=== PATIENT | female | born 1965 | race Hispanic/Latino ===

== ENCOUNTER 2018-05-25 18:42 | Emergency (ER) | payer OTHER ==
--- OUTSIDE RECORDS SUMMARY | 2018-05-25 18:45 | XMS REPORT | Summary of Care ---
:[address] [facility] Address [address] [place] [address]- Encounter HQ Encntr_alias(FIN) [id number] Date(s): 04/05/17 - 04/05/17 [facility] [address] [place] [address]- [phone] Attending Physician: Gail Morse MD Vital Signs No data available for this section Problem List Condition Effective Dates Status Health Status Informant Anxiolytic Dependence(Confirmed) Active Benzodiazepine dependence(Confirmed) < 12/13/16 Resolved Encounter for monitoring Suboxone Active maintenance therapy(Confirmed) Schizophrenia(Confirmed) Active Drug abuse counseling and Active surveillance of drug abuser(Confirmed) Allergies, Adverse Reactions, Alerts No data available for this section Medications No data available for this section Results No data available for this section Immunizations No data available for this section Procedures Procedure Date Related Diagnosis Body Site Status Operation 2003 Completed Cholecystectomy 2000 Completed Social History Social History Type Response Substance Abuse Use: Past. Type: Prescription medications. Alcohol Past Smoking Status Current every day smoker; Type: Cigarettes; Exposure to Tobacco Smoke Patient smokes; Cigarette Smoking Last 365 Days Yes; Reg Smoking Cessation Counseling No; Tobacco use per day: 10; entered on: 12/07/16 Assessment and Plan No data available for this section
--- OUTSIDE RECORDS SUMMARY | 2018-05-25 18:45 | XMS REPORT | Summary of Care ---
:1965 Author Organization [facility] Address [address] [place] [address]- Encounter HQ Encntr_alias(FIN) [id number] Date(s): 03/26/17 - 03/26/17 [facility] [address] [place] [address]- [phone] Attending Physician: Gail Morse MD Vital Signs [...]
--- OUTSIDE RECORDS SUMMARY | 2018-05-25 18:45 | XMS REPORT ---
:1965 [facility] Address [address] [place] [address] [address]. [address]. [address] [place] [address] Care Team Providers Name Role Phone Unavailable Unavailable Unavailable Problems This patient has no known problems. Allergies, Adverse Reactions, Alerts This patient has no known allergies or adverse reactions. Medications This patient has no known medications.
--- NOTE | 2018-05-25 20:30 | RAD REPORT ---
EXAM DESCRIPTION: RAD - Chest Pa And Lat (2 Views) - 05/25/2018 8:00 pm CLINICAL HISTORY: COUGH Chest pain. COMPARISON: CHEST SINGLE VIEW dated 01/29/2015 FINDINGS: The lungs are clear. The heart is normal in size. No displaced fractures. IMPRESSION: No acute or concerning finding suspected.
--- NOTE | 2018-05-25 20:37 | ER ---
Nurse's Notes [facility] Name: Tabatha Chambers Age: 52 yrs Sex: Female : 1965 Arrival Date: 05/25/2018 Time: 18:48 Bed 27 Private MD: Diagnosis: Acute upper respiratory infection, unspecified Presentation: 05/25 18:49 Presenting complaint: Patient states: dyspnea, sore throat, chills, cough x 2 days. sv Transition of care: patient was not received from another setting of care. Onset of symptoms was May 23, 2018. Care prior to arrival: None. 18:49 Method Of Arrival: Ambulatory sv 18:49 Acuity: VERO 3 sv 19:40 Risk Assessment: Do you want to hurt yourself or someone else? Patient reports no mg2 desire to harm self or others. Initial Sepsis Screen: Does the patient meet any 2 criteria? No. Patient's initial sepsis screen is negative. Does the patient have a suspected source of infection? No. Patient's initial sepsis screen is negative. Triage Assessment: 18:49 General: Appears in no apparent distress. uncomfortable, obese, unkempt, Behavior is sv calm, cooperative. EENT: Reports pain in left aspect of posterior pharynx and right aspect of posterior pharynx when swallowing. Neuro: Level of Consciousness is awake, alert, obeys commands, Oriented to person, place, time, situation, Moves all extremities. Full function Gait is steady. Respiratory: Reports cough that is non-productive, Respiratory effort is even, unlabored, Respiratory pattern is regular, symmetrical, Onset: The symptoms/episode began/occurred 2 days ago. 19:41 Respiratory: the patient has mild shortness of breath. 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 - Social history:: Smoking status: Patient/guardian denies using tobacco, Patient/guardian denies using alcohol, street drugs, IV drugs. - Family history:: not pertinent. - Ebola Screening: : No symptoms or risks identified at this time. - Hospitalizations: : No recent hospitalization is reported. Screenin:39 Abuse screen: Denies threats or abuse. Denies injuries from another. Nutritional mg2 screening: No deficits noted. Tuberculosis screening: No symptoms or risk factors identified. Fall Risk None identified. Assessment: 19:38 General: Appears in no apparent distress. comfortable, Behavior is calm, cooperative. mg2 Pain: Complains of pain in back and throat Pain does not radiate. Pain currently is 2 out of 10 on a pain scale. Quality of pain is described as aching, Pain began gradually. Neuro: Level of Consciousness is awake, alert, obeys commands, Oriented to person, place, time, situation. Cardiovascular: Rhythm is. Respiratory: Airway is patent Respiratory effort is even, unlabored, Respiratory pattern is regular, symmetrical, Breath sounds are clear bilaterally. in right upper lobe and left upper lobe. Respiratory: Reports shortness of breath at rest cough that is non-productive. GI: No signs and/or symptoms were reported involving the gastrointestinal system. : No signs and/or symptoms were reported regarding the genitourinary system. EENT: No signs and/or symptoms were reported regarding the EENT system. Derm: Skin is intact, is healthy with good turgor, Skin is pink, warm \T\ dry. normal. Musculoskeletal: Circulation, motion, and sensation intact. Capillary refill < 3 seconds. Vital Signs: 18:50 BP 152 / 105; Pulse 92; Resp 20; Temp 98.9; Pulse Ox 98% ; Weight 125.65 kg; Height 5 sv ft. 5 in. (165.10 cm); 21:13 BP 140 / 80; Pulse 85; Resp 18; Pulse Ox 98% on R/A; Pain 0/10; mg2 18:50 Body Mass Index 46.09 (125.65 kg, 165.10 cm) sv ED Course: 18:48 Patient arrived in ED. mr 18:50 Triage completed. sv 18:51 Arm band placed on. sv 19:00 Darian Pate MD is Attending Physician. rn 19:11 Cb Guerrero RN is Primary Nurse. mg2 19:40 No provider procedures requiring assistance completed. Patient did not have IV access mg2 during this emergency room visit. 19:41 Patient has correct armband on for positive identification. Door closed. mg2 19:59 X-ray completed. Portable x-ray completed in exam room. Patient tolerated procedure az well. 20:00 XRAY Chest Pa And Lat (2 Views) In Process Unspecified. EDMS Administered Medications: 21:13 Drug: Zithromax 500 mg Route: PO; mg2 21:13 Follow up: Response: No adverse reaction; Medication administered at discharge. mg2 Outcome: 20:37 Discharge ordered by . rn 21:13 Discharged to home ambulatory. mg2 21:13 Condition: stable 21:13 Discharge instructions given to patient, Instructed on discharge instructions, follow up and referral plans. medication usage, Demonstrated understanding of instructions, follow-up care, medications, Prescriptions given X 1. 21:14 Patient left the ED. mg2 Signatures: Dispatcher [employer] EDMS Codie Baeza RN RN sv Rivera, Mary mr Nieto, Roman, MD MD rn Gardose, Michele, RN RN mg2 Janie Tomas
--- NOTE | 2018-05-25 20:37 | EDPHYS ---
Physician Documentation [facility] Name: Tabatha Chambers Age: 52 yrs Sex: Female : 1965 Arrival Date: 05/25/2018 Time: 18:48 Bed 27 Private MD: ED Physician Darian Pate HPI: 05/25 19:09 This 52 yrs old Female presents to ER via Ambulatory with complaints of rn Breathing Difficulty, Sore Throat, Fever. 19:09 The patient or guardian reports cough, flu symptoms. Onset: The symptoms/episode rn began/occurred 1 week(s) ago. Severity of symptoms: At their worst the symptoms were mild, in the emergency department the symptoms are unchanged. Modifying factors: The symptoms are alleviated by nothing, the symptoms are aggravated by nothing. Associated signs and symptoms: Pertinent positives: fever, rhinorrhea, sore throat. The patient has experienced similar episodes in the past. Reports fever, cough, runny nose, sore throat, muscle aches, fatigue, no vomiting/diarrhea. . 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 - Social history:: Smoking status: Patient/guardian denies using tobacco, Patient/guardian denies using alcohol, street drugs, IV drugs. - Family history:: not pertinent. - Ebola Screening: : No symptoms or risks identified at this time. - Hospitalizations: : No recent hospitalization is reported. ROS: 19:09 Constitutional: + fever Eyes: Negative for injury, pain, redness, and discharge, ENT: + rn runny nose and congestion, + sore throat Cardiovascular: Negative for chest pain, palpitations, and edema, Respiratory: + cough, neg for sob Abdomen/GI: Negative for abdominal pain, nausea, vomiting, diarrhea, and constipation, MS/Extremity: Negative for injury and deformity, Skin: Negative for injury, rash, and discoloration, Neuro: Negative for headache, numbness, tingling, and seizure. Exam: 19:09 Constitutional: This is a well developed, well nourished patient who is awake, alert, rn and in no acute distress. Head/Face: Normocephalic, atraumatic. Eyes: Pupils equal round and reactive to light, extra-ocular motions intact. Lids and lashes normal. Conjunctiva and sclera are non-icteric and not injected. Cornea within normal limits. Periorbital areas with no swelling, redness, or edema. ENT: mild pharyngeal erythema, no stridor Neck: Trachea midline, no thyromegaly or masses palpated, and no cervical lymphadenopathy. Supple, full range of motion without nuchal rigidity, or vertebral point tenderness. No Meningismus. Cardiovascular: Regular rate and rhythmm, No pulse deficits. Respiratory: Lungs have equal breath sounds bilaterally, clear to auscultation. No increased work of breathing, no retractions or nasal flaring. Abdomen/GI: soft, non-tender Skin: Warm, dry, Normal color with no rashes, no lesions, and no evidence of cellulitis. MS/ Extremity: Pulses equal, no cyanosis. Neurovascular intact. Full, normal range of motion. Equal circumference. Neuro: Awake and alert, GCS 15, oriented to person, place, time, and situation. Cranial nerves II-XII grossly intact. Motor strength 5/5 in all extremities. Sensory grossly intact. Vital Signs: 18:50 BP 152 / 105; Pulse 92; Resp 20; Temp 98.9; Pulse Ox 98% ; Weight 125.65 kg; Height 5 sv ft. 5 in. (165.10 cm); 21:13 BP 140 / 80; Pulse 85; Resp 18; Pulse Ox 98% on R/A; Pain 0/10; mg2 18:50 Body Mass Index 46.09 (125.65 kg, 165.10 cm) sv MDM: 19:00 Patient medically screened. rn 20:36 Differential Diagnosis: Bronchitis Influenza Upper Respiratory Infection Sinusitis rn Pharyngitis Viral Syndrome Pneumonia. Data reviewed: vital signs, nurses notes, lab test result(s), radiologic studies, plain films, and as a result, I will discharge patient. Counseling: I had a detailed discussion with the patient and/or guardian regarding: the historical points, exam findings, and any diagnostic results supporting the discharge/admit diagnosis, lab results, radiology results, the need for outpatient follow up, to return to the emergency department if symptoms worsen or persist or if there are any questions or concerns that arise at home. Special discussion: I discussed with the patient/guardian in detail that at this point there is no indication for admission to the hospital. It is understood, however, that if the symptoms persist or worsen the patient needs to return immediately for re-evaluation. 05/25 18:48 Order name: Flu; Complete Time: 20:35 snw 05/25 18:48 Order name: Strep; Complete Time: 20:35 snw 05/25 19:04 Order name: XRAY Chest Pa And Lat (2 Views); Complete Time: 20:35 rn 05/25 20:07 Order name: Throat Culture EDMS Administered Medications: 21:13 Drug: Zithromax 500 mg Route: PO; mg2 21:13 Follow up: Response: No adverse reaction; Medication administered at discharge. mg2 Disposition: 05/25/18 20:37 Discharged to Home. Impression: Acute upper respiratory infection, unspecified. - Condition is Stable. - Discharge Instructions: Upper Respiratory Infection, Adult. - Prescriptions for Zithromax Z- Ihsan 250 mg Oral Tablet - take 1 tablet by ORAL route as directed for 5 days Day 1 - take two (2) tablets one time. Day 2, 3, 4 , 5 take one (1) tablet once daily.; 6 tablet. - Medication Reconciliation Form, Thank You Letter, Antibiotic Education, Prescription Opioid Use form. - Follow up: Private Physician; When: As needed; Reason: Recheck today's complaints, Re-evaluation by your physician. - Problem is new. - Symptoms have improved. Signatures: Dispatcher [employer] EDCodie Guerrero RN RN sv Nieto, Roman, MD MD rn Gardose, Michele, RN RN mg2 Corrections: (The following items were deleted from the chart) 21:14 20:37 05/25/2018 20:37 Discharged to Home. Impression: Acute upper respiratory mg2 infection, unspecified. Condition is Stable. Forms are Medication Reconciliation Form, Thank You Letter, Antibiotic Education, Prescription Opioid Use. Follow up: Private Physician; When: As needed; Reason: Recheck today's complaints, Re-evaluation by your physician. Problem is new. Symptoms have improved. rn
[2018-05-25] MEDS ORDERED: AZITHROMYCIN 250 MG TAB ONE (21:14)
[2018-05-25 22:15] VITALS: TEMP 98.9; O2SAT 98
[2018-05-25 22:16] VITALS: BP 140/80
== END 2018-05-25 21:14 | disposition home or self-care (01) ==
LOC: ER 18:42
DX: J06.9 Acute upper respiratory infection, unspecified (principal)
CPT/HCPCS: 71046; 87070; 87081; 87804; 99283

== ENCOUNTER 2018-08-05 21:36 | Observation (INO) | payer OTHER ==
--- OUTSIDE RECORDS SUMMARY | 2018-08-05 21:38 | XMS REPORT | Continuity of Care Document ---
:1965 Author Organization Interface Problems Problem Status Onset Classification Date Comments Source Date Reported Benzodiazepine Resolved 12/14/19 Problem 07/12/2017 Medical dependence [facility] Group Anxiolytic Active Problem 07/12/2017 Medical Dependence Group Encounter for Active Problem 07/12/2017 Medical monitoring Group Suboxone maintenance therapy Schizophrenia Active Problem 07/12/2017 Medical Group Drug abuse Active Problem 07/12/2017 Medical counseling and Group surveillance of drug abuser Medications Medication Details Route Status Patient Ordering Order Source Instructions Provider Date Allergies, Adverse Reactions, Alerts Substance Category Reaction Severity Reaction Status Date Comments Source type Reported Immunizations Immunization Date Given Site Status Last Updated Comments Source Results Order Results Value Reference Date Interpretation Comments Source Name Range Vital Signs Vital Sign Value Date Comments Source Encounters Location Location Encounter Encounter Reason Attending ADM DC Status Source Details Type Number For Provider Date Date Visit Outpatient [id number] [facility] 12/07 Active [facility] [id number] [place] 03/26 [facility] [id number] [place] 03/26 03/26 [facility] [id number] [place] 04/05 [facility] [id number] [place] 04/05 04/05 Family [facility] Procedures Procedure Code Date Perfomer Comments Source Operation [id number] 03/08/2003 Medical Group Cholecystectomy [id number] 03/08/2000 Medical Group
--- OUTSIDE RECORDS SUMMARY | 2018-08-05 21:38 | XMS REPORT ---
:1965 [facility] Address [address] [place] [address] Dr. Kim. [address] [place] [address] Care Team Providers Name Role Phone Unavailable Unavailable Unavailable Problems This patient has no known problems. Allergies, Adverse Reactions, Alerts This patient has no known allergies or adverse reactions. Medications This patient has no known medications.
[2018-08-05 22:09] LABS: Absolute Lymphocytes (CBC) 1.8 K/uL (0.7-4.9); Absolute Monocytes 0.3 K/uL (0.1-1.3); Basophils % 1.3 % (0-1.3); Eosinophils % 1.7 % (0-4.4); Hematocrit 34.9 % (36.0-45.0); Lymphocytes % 24.4 % (15.3-44.8); MPV 8.1 fL (7.6-11.3); Monocytes % 4.1 % (3.3-12.3); RBC Red Blood Cell Count 4.14 M/uL (3.86-4.86)
[2018-08-05 22:13] LABS: Protime INR 1.14
--- NOTE | 2018-08-05 22:25 | RAD REPORT ---
EXAM DESCRIPTION: [place] Single View08/05/2018 10:06 pm CLINICAL HISTORY: Code stroke/shortness of breath COMPARISON: May 2018 FINDINGS: The lungs appear clear of acute infiltrate. The heart is normal size IMPRESSION: No acute abnormalities displayed
[2018-08-05 22:26] LABS: ALT/SGPT 14 U/L (12-78); AST/SGOT 15 U/L (15-37); Albumin 2.9 g/dL (3.4-5.0); Alkaline Phosphatase 110 U/L (45-117); BUN Blood Urea Nitrogen 13 mg/dL (7-18); Bicarbonate 27 mmol/L (21-32); Bilirubin Total 0.3 mg/dL (0.2-1.0); Glucose Level 115 mg/dL (74-106); Potassium 3.7 mmol/L (3.5-5.1); Protein, Total 6.9 g/dL (6.4-8.2); Sodium Level 138 mmol/L (136-145); Troponin (Emerg Dept Use Only) < 0.02 ng/mL (0.0-0.045)
[2018-08-05 22:27] LABS: Magnesium 1.4 mg/dL (1.8-2.4)
[2018-08-05 22:59] LABS: Blood Morphology Comment NOT SEEN (NOT SEEN); Platelet Estimate ADEQ
[2018-08-05] MEDS ORDERED: Magnesium Sulfate 2gm IVPB 2 G/50 ML BAG IV ONE (23:14)
[2018-08-06 00:52] LABS: Urine Blood NEGATIVE (NEG); Urine Glucose NEGATIVE (NEG); Urine Protein NEGATIVE (NEG); Urine pH 6.5 (5.0-7.0)
[2018-08-06] MEDS ORDERED: ONDANSETRON 4 MG/2 ML VIAL IV PRN (01:37)
--- NOTE | 2018-08-06 01:49 | P.HP ---
Certification for Inpatient Patient admitted to: Observation With expected LOS: <2 Midnights Practitioner: I am a practitioner with admitting privileges, knowledge of patient current condition, hospital course, and medical plan of care. Services: Services provided to patient in accordance with Admission requirements found in Title 42 Section 412.3 of the Code of Federal Regulations Patient History Date of Service: 08/06/18 Reason for admission: TIA History of Present Illness: Ms Chambers is a 52 years old woman with history of schizophrenia who present to ED complaining of right facial drop and right leg weakness starting a couple of hours before arrive. She denied slurred speech or vision problems. At the time of my examination her symptoms were resolved, however, she states that symptoms are come and go. Lab work remarkable for hypomagnesemia. CT head shows no acute abnormalities, CTA head and neck unremarkable. According to the patient she has never had this symptoms in the past. Allergies No Known Drug Allergies Allergy (Unverified 10/06/14 13:07) Unknown Home medications list reviewed: Yes - Past Medical/Surgical History -: schyzophrenia -: bipolar -: tubal ligation -: left ankle -: ectopic - Family History Family History: Reviewed- Non-Contributory - Social History Smoking Status: Former smoker Alcohol use: No CD- Drugs: No Place of Residence: Home Review of Systems 10-point ROS is otherwise unremarkable Physical Examination - Physical Exam General: Alert, In no apparent distress HEENT: Atraumatic, PERRLA, Mucous membr. moist/pink, EOMI, Sclerae nonicteric Neck: Supple, 2+ carotid pulse no bruit, No LAD, Without JVD or thyroid abnormality Respiratory: Clear to auscultation bilaterally, Normal air movement Cardiovascular: Regular rate/rhythm, Normal S1 S2 Gastrointestinal: Normal bowel sounds, No tenderness Musculoskeletal: No tenderness Integumentary: No rashes Neurological: Normal gait, Normal speech, Normal strength at 5/5 x4 extr, Normal tone, Normal affect Lymphatics: No axilla or inguinal lymphadenopathy - Studies Laboratory Data (last 24 hrs) 08/05/18 21:59: PT 13.4 H, INR 1.14, APTT 37.6 H 08/05/18 21:59: WBC 7.3, Hgb 11.6 L, Hct 34.9 L, Plt Count 252 08/05/18 21:59: Sodium 138, Potassium 3.7, BUN 13, Creatinine 0.93, Glucose 115 H, Magnesium 1.4 L*, Total Bilirubin 0.3, AST 15, ALT 14, Alkaline Phosphatase 110 Assessment and Plan - Problems (Diagnosis) (1) TIA (transient ischemic attack) Current Visit: Yes Status: Acute (2) Schizophrenia Current Visit: Yes Status: Acute Qualifiers: Schizophrenia type: unspecified Qualified Code(s): F20.9 - Schizophrenia, unspecified (3) Obesity Current Visit: Yes Status: Acute Qualifiers: Obesity type: unspecified obesity type Obesity classification: unspecified obesity classification Serious obesity comorbidity presence: unspecified whether serious comorbidity present Qualified Code(s): E66.9 - Obesity, unspecified (4) Hypomagnesemia Current Visit: Yes Status: Acute - Plan The patient will be admitted to the hospital for possible TIA. Consider conversion disorder as differential diagnosis. Will order brain MRI in AM to R/ O acute stroke. If negative, she can be discharged home and follow up with her PCP. - Advance Directives Does patient have a Living Will: No Does patient have a Durable POA for Healthcare: No - Code Status/Comfort Care Code Status Assessed: Yes Code Status: Full Code
--- NOTE | 2018-08-06 01:57 | EDPHYS ---
Physician Documentation [facility] Name: Tabatha Chambers Age: 52 yrs Sex: Female : 1965 Arrival Date: 08/05/2018 Time: 21:36 Bed 4 Private MD: ED Physician Chandler Artis HPI: 08/05 23:23 This 52 yrs old Female presents to ER via EMS with complaints of S/S of ps1 Possible Stroke. 23:23 patient has a history of schizophrenia and was off of her medications for several ps1 months she states she started taking her schizophrenia medications two days ago and then started feeling different. 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 Pt was brought in by EMS and straight to CT scan for evaluation of acute stroke. CTA ordered. Patient states her symptoms resolved when she got to ED room. . 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 - bb Historical: - Allergies: 22:15 No Known Allergies; bb - Home Meds: 22:15 Propranolol Oral [Active]; Hydrochlorothiazide Oral [Active]; Alprazolam Oral [Active]; bb ropinirole oral oral [Active]; Invega oral oral [Active]; Bupropion Oral [Active]; tizanidine oral oral [Active]; Cymbalta oral oral [Active]; Folic Acid Oral [Active]; Zolpidem Tartrate Oral [Active]; Melatonin Oral [Active]; suboxone [Active]; - PMHx: 22:15 Depression; Schizophrenia; Bipolar disorder; Hypertension; Anxiety; bb - PSHx: 22:15 ankle left; Tubal ligation; ectopic ; bb - Immunization history:: Adult Immunizations unknown. - Social history:: Smoking status: Patient/guardian denies using tobacco. - Ebola Screening: : No symptoms or risks identified at this time. ROS: 23:23 Constitutional: Negative for fever, chills, and weight loss, Eyes: Negative for injury, ps1 pain, redness, and discharge, ENT: Negative for injury, pain, and discharge, Cardiovascular: Negative for chest pain, palpitations, and edema, Respiratory: Negative for shortness of breath, cough, wheezing, and pleuritic chest pain, Abdomen/GI: Negative for abdominal pain, nausea, vomiting, diarrhea, and constipation, MS/Extremity: Negative for injury and deformity, Skin: Negative for injury, rash, and discoloration. 23:23 Neuro: Positive for speech changes, weakness, of the right cheek, right leg. Exam: 23:23 Radiologist reports: negative CTA, CT ps1 23:23 Constitutional: This is a well developed, well nourished patient who is awake, alert, and in no acute distress. Head/Face: Normocephalic, atraumatic. Eyes: Pupils equal round and reactive to light, extra-ocular motions intact. Lids and lashes normal. Conjunctiva and sclera are non-icteric and not injected. Chest/axilla: Normal chest wall appearance and motion. Nontender with no deformity. No lesions are appreciated. Cardiovascular: Regular rate and rhythm. No gallops, murmurs, or rubs. Normal PMI, no JVD. No pulse deficits. Respiratory: Lungs have equal breath sounds bilaterally, clear to auscultation and percussion. No rales, rhonchi or wheezes noted. No increased work of breathing, no retractions or nasal flaring. Abdomen/GI: Soft, non-tender, with normal bowel sounds. No distension or tympany. No guarding or rebound. No evidence of tenderness throughout. Skin: Warm, dry with normal turgor. Normal color with no rashes, no lesions, and no evidence of cellulitis. MS/ Extremity: Pulses equal, no cyanosis. Neurovascular intact. Full, normal range of motion. Neuro: Awake and alert, GCS 15, oriented to person, place, time, and situation. Cranial nerves II-XII grossly intact. Sensory grossly intact. Psych: Awake, alert, with orientation to person, place and time. Behavior, mood, and affect are within normal limits. Vital Signs: 22:15 BP 144 / 104; Pulse 72; Resp 16 S; Temp 97.8(O); Pulse Ox 98% on R/A; Weight 116.57 kg bb (R); Height 5 ft. 5 in. (165.10 cm) (R); Pain 5/10; 22:38 BP 91 / 50; Pulse 81; Resp 16 S; Temp 97.8(O); Pulse Ox 99% on R/A; cc3 23:30 BP 107 / 82; Pulse 72; Resp 18 S; Temp 97.8(O); Pulse Ox 100% ; cc3 08/06 00:30 BP 103 / 53; Pulse 75; Resp 20 S; Temp 97.9(O); Pulse Ox 100% on R/A; cc3 01:30 BP 133 / 82; Pulse 84; Resp 18 S; Temp 97.8(O); Pulse Ox 100% on R/A; cc3 02:09 BP 113 / 47; Pulse 74; Resp 20 S; Temp 97.5(O); Pulse Ox 100% on R/A; cc3 03:15 BP 116 / 78; Pulse 75; Resp 20 S; Temp 97.5(O); Pulse Ox 100% on R/A; cc3 08/05 22:15 Body Mass Index 42.77 (116.57 kg, 165.10 cm) bb NIH Stroke Scale Scores: 08/05 22:10 NIHSS Score: 0 cc3 MDM: 21:58 Patient medically screened. ps1 23:23 Data reviewed: vital signs, nurses notes, lab test result(s), radiologic studies, and ps1 as a result, I will. ED course: patient was able to ambulate without assistance. . 08/05 21:38 Order name: Troponin (emerg Dept Use Only); Complete Time: 00:13 ps1 08/05 21:38 Order name: Magnesium; Complete Time: 00:13 ps1 08/05 21:38 Order name: CBC with Diff; Complete Time: 00:13 ps1 08/05 21:38 Order name: Protime (+inr); Complete Time: 00:13 ps1 08/05 21:38 Order name: Ptt, Activated; Complete Time: 00:13 ps1 08/05 21:38 Order name: CMP; Complete Time: 00:13 ps1 08/05 21:38 Order name: CT Stroke Brain w/o Contrast ps1 08/05 21:38 Order name: Stroke CXR 1 View; Complete Time: 00:13 ps1 08/05 21:41 Order name: CT Neck Angio ps1 08/05 22:17 Order name: Manual Differential; Complete Time: 00:13 EDMS 08/06 00:45 Order name: Urine Dipstick--Ancillary (enter results); Complete Time: 00:53 ar5 08/06 01:44 Order name: Liver (Hepatic) Function EDMS 08/06 01:44 Order name: Liver (Hepatic) Function EDDE 08/06 01:44 Order name: Liver (Hepatic) Function EDDE 08/05 21:38 Order name: EKG; Complete Time: 21:41 [facility] 08/05 21:38 Order name: Accucheck; Complete Time: 22:14 [facility] 08/05 21:38 Order name: Cardiac monitoring; Complete Time: 22:14 [facility] 08/05 21:38 Order name: EKG - Nurse/Tech; Complete Time: 22:14 [facility] 08/05 21:38 Order name: IV Saline Lock; Complete Time: 22:34 [facility] 08/05 21:38 Order name: Labs collected and sent; Complete Time: 22:34 [facility] 08/05 21:38 Order name: NPO; Complete Time: 22:14 [facility] 08/05 21:38 Order name: O2 Per Protocol; Complete Time: 22:14 [facility] 08/05 21:38 Order name: O2 Sat Monitoring; Complete Time: 22:14 [facility] 08/05 21:38 Order name: Stroke Swallow Screen; Complete Time: 22:14 [facility] 08/05 21:47 Order name: Head angio EDDE 08/06 01:44 Order name: Physical Therapy Consult EDDE 08/06 01:44 Order name: Echo with Doppler EDDE 08/06 01:44 Order name: EKG Electrocardiogram EDDE 08/06 01:44 Order name: Stroke Protocol [facility] Administered Medications: 23:05 Drug: Magnesium Sulfate 2 grams Route: IVPB; Infused Over: 2 hrs; Site: left cc3 antecubital; 08/06 01:10 Follow up: Response: No adverse reaction; IV Status: Completed infusion; IV Intake: [id number] Point of Care Testing: Blood Glucose: 08/05 22:08 Blood Glucose: 130 mg/dL; ak1 Ranges: Critical Glucose Levels:Adult <50 mg/dl or >400 mg/dl <40 mg/dl or >180 mg/dl Disposition: 08/06/18 01:55 Hospitalization ordered by Ciara Lane for Observation. Preliminary diagnosis is TIA. - Bed requested for Telemetry/MedSurg (observation). - Status is Observation. cc3 - Condition is Stable. - Problem is new. - Symptoms have improved. UTI on Admission? No NIH Stroke Scale - NIH Stroke Score Date: 08/05/2018 Time: 22:10 Total Score = 0 1a. Level of Consciousness (LOC) - 0(Alert) 1b. Level of Consciousness (LOC) (Year \T\ Age) - 0(Both) 1c. LOC Commands (Open \T\ Closes Eyes/Beck Operator) - 0(Both) 2. Best Gaze (Lateral Gaze Paresis) - 0(Normal) 3. Visual Field Loss - 0(No visual loss) 4. Facial Palsy - 0(Normal) 5a. Left Arm: Motor (10-second hold) - 0(No drift) 5b. Right Arm: Motor (10-second hold) - 0(No drift) 6a. Left Leg: Motor (5-second hold - always test supine) - 0(No drift) 6b. Right Leg: Motor (5-second hold - always test supine) - 0(No drift) 7. Limb Ataxia (finger/nose \T\ heel/kent - test with eyes open) - 0(Absent) 8. Sensory Loss (pinprick arms/legs/face) - 0(Normal) 9. Best Language: Aphasia (description/naming/reading) - 0(No aphasia) 10. Dysarthria (speech clarity - read or repeat words) - 0(Normal) 11. Extinction and Inattention (visual/tactile/auditory/spatial/personal) - 0(No abnormality) Initials: cc3 Signatures: Dispatcher [employer] EDMS Clarisse March RN RN bb Haley Taveras RN RN cg Chandler Artis MD MD ps1 Emily Bales cc3 Corrections: (The following items were deleted from the chart) 08/06 02:19 01:55 Hospitalization Ordered by Ciara Lane MD for Observation. Preliminary cg diagnosis is TIA. Bed requested for Telemetry/MedSurg (observation). Status is Observation. Condition is Stable. Problem is new. Symptoms have improved. UTI on Admission? No. ps1 03:30 02:19 08/06/2018 01:55 Hospitalization Ordered by Ciara Lane MD for cc3 Observation. Preliminary diagnosis is TIA. Bed requested for Telemetry/MedSurg (observation). Status is Observation. Condition is Stable. Problem is new. Symptoms have improved. UTI on Admission? No. cg
--- NOTE | 2018-08-06 01:57 | ER ---
Nurse's Notes [facility] Name: Tabatha Chambers Age: 52 yrs Sex: Female : 1965 Arrival Date: 08/05/2018 Time: 21:36 Bed 4 Private MD: Diagnosis: TIA Presentation: 08/05 21:33 Presenting complaint: EMS states: they were toned out for report of pt having stroke bb like symptoms with slurred speech and right arm weakness, last known well time was 2029, 08/05/18. Transition of care: patient was not received from another setting of care. An acute neurological deficit is present. The patients blood glucose was checked before arriving to the hospital and was found to be normal. Onset of symptoms was August 05, 2018 at 20:30. Risk Assessment: Do you want to hurt yourself or someone else? Patient reports no desire to harm self or others. Initial Sepsis Screen: Does the patient meet any 2 criteria? No. Patient's initial sepsis screen is negative. Does the patient have a suspected source of infection? No. Patient's initial sepsis screen is negative. Care prior to arrival: IV initiated. 20 GA, in the left antecubital area. 21:33 Method Of Arrival: EMS: [facility] bb 21:33 Acuity: VERO 1 bb Triage Assessment: 22:05 General: Appears in no apparent distress. uncomfortable, obese, Behavior is calm, cc3 cooperative, appropriate for age. Pain: Complains of pain in right leg Quality of pain is described as tingling. EENT: Sclera/Cornea are clear in bilaterally Nares are clear bilaterally Oral mucosa is dry. Throat with gag reflex present. Neuro: Level of Consciousness is awake, alert, obeys commands, Oriented to person, place, time, situation, Appropriate for age Lead Janitor are equal bilaterally Moves all extremities. Gait is steady, Speech is normal, Facial symmetry appears normal, Pupils are PERRLA, Intact Reports pain on the right leg like pinprick sensation to her right plantar area.. Cardiovascular: Denies chest pain, Patient's skin is warm and dry. Respiratory: Airway is patent Respiratory effort is even, unlabored, Respiratory pattern is regular, symmetrical. GI: Abdomen is round obese. : No signs and/or symptoms were reported regarding the genitourinary system. Derm: noticed healed wound scars/scratches on both her upper extremities. Musculoskeletal: Range of motion: intact in all extremities. 22:15 The onset of the patients symptoms was August 05, 2018 at 20:30. 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/A - bb Stroke Activation: Symptom onset < 3 hours Physician: Stroke Attending; Name: ; Notified At: ; Arrived At: Physician: Chief Stroke Resident; Name: ; Notified At: ; Arrived At: Physician: Stroke Resident; Name: ; Notified At: ; Arrived At: Physician: ED Attending; Name: Artis; Notified At: 21:33; Arrived At: 21:33 Physician: ED Resident; Name: ; Notified At: ; Arrived At: Historical: - Allergies: 22:15 No Known Allergies; bb - Home Meds: 22:15 Propranolol Oral [Active]; Hydrochlorothiazide Oral [Active]; Alprazolam Oral [Active]; bb ropinirole oral oral [Active]; Invega oral oral [Active]; Bupropion Oral [Active]; tizanidine oral oral [Active]; Cymbalta oral oral [Active]; Folic Acid Oral [Active]; Zolpidem Tartrate Oral [Active]; Melatonin Oral [Active]; suboxone [Active]; - PMHx: 22:15 Depression; Schizophrenia; Bipolar disorder; Hypertension; Anxiety; bb - PSHx: 22:15 ankle left; Tubal ligation; ectopic ; bb - Immunization history:: Adult Immunizations unknown. - Social history:: Smoking status: Patient/guardian denies using tobacco. - Ebola Screening: : No symptoms or risks identified at this time. Screenin:05 Abuse screen: Denies threats or abuse. Denies injuries from another. Nutritional cc3 screening: patient said she hasn't eaten anything the whole day. Tuberculosis screening: No symptoms or risk factors identified. Fall Risk Ambulatory Aid- None/Bed Rest/Nurse Assist (0 pts). Gait- Normal/Bed Rest/Wheelchair (0 pts) Mental Status- Oriented to own ability (0 pts). 22:10 Patient has been NPO before screening. The patient is alert, able to follow commands. cc3 The patient does not exhibit slurred or garbled speech The patient is not exhibiting difficulty speaking. The patient does not exhibit difficulty understanding words. The patient is able to swallow own secretions with no drooling or need for suction. Patient tolerated one teaspoon of water. No drooling, immediate coughing, gurgling, or clearing of the throat was noted. The patient tolerated 90mL of water. No drooling, immediate coughing, gurgling, or clearing of the throat was noted. The patient passed the bedside swallow screening. Oral medications may be given as ordered. Contact Physician for further diet orders. Provider notified of bedside swallow screening results: Chandler Artis MD. Assessment: 22:05 VAN Scoring: Arm Drift: Patients demonstrates NO arm weakness. Patient is VAN Negative. cc3 Visual Disturbance: No visual disturbance noted. Aphasia: No aphasia noted. Neglect: No neglect noted. 22:10 Patient has been NPO before screening. The patient is alert, and able to follow cc3 commands. The patient does not exhibit slurred or garbled speech. The patient is not exhibiting difficulty speaking. The patient does not exhibit difficulty understanding words. The patient is able to swallow own secretions with no drooling or need for suction. Patient tolerated one teaspoon of water. No drooling, immediate coughing, gurgling, or clearing of the throat was noted. The patient tolerated 90mL of water. No drooling, immediate coughing, gurgling, or clearing of the throat was noted. The patient passed the bedside swallow screening. Oral medications may be given as ordered. Contact Physician for further diet orders. Provider notified of bedside swallow screening results: Chandler Artis MD. 22:18 T-PA (Activase) Screening: Contraindications: Rapidly improving condition or minor bb deficit: Yes. 22:30 Reassessment: Patient appears in no apparent distress at this time. Patient and/or cc3 family updated on plan of care and expected duration. Pain level reassessed. Patient is alert, oriented x 3, equal unlabored respirations, skin warm/dry/pink. Assisted the patient to walk from her room to bathroom, patient tolerated without falling or weakness she just said that her right leg is aching, Dr. Artis informed. 23:10 Reassessment: Patient appears in no apparent distress at this time. Patient and/or cc3 family updated on plan of care and expected duration. Pain level reassessed. Patient is alert, oriented x 3, equal unlabored respirations, skin warm/dry/pink. Patient asked for something to eat, informed Dr. Artis and he said patient can now eat. 08/06 00:30 Reassessment: Patient appears in no apparent distress at this time. Patient and/or cc3 family updated on plan of care and expected duration. Pain level reassessed. Patient is alert, oriented x 3, equal unlabored respirations, skin warm/dry/pink. Patient comfortably using her mobile phone, no complaints noted. 01:55 Reassessment: Patient appears in no apparent distress at this time. Patient and/or cc3 family updated on plan of care and expected duration. Pain level reassessed. Patient is alert, oriented x 3, equal unlabored respirations, skin warm/dry/pink. Patient for admission, Dr. Lane at bedside assessing the patient; awaiting admission orders. 02:30 Reassessment: Patient appears in no apparent distress at this time. Patient and/or cc3 family updated on plan of care and expected duration. Pain level reassessed. Patient is alert, oriented x 3, equal unlabored respirations, skin warm/dry/pink. Room available at 404, called for report and handed over to RN Monse Juarez for continuity of care and management. Patient denies pain at this time. Patient states feeling better. Patient states symptoms have improved. 03:30 Reassessment: Patient appears in no apparent distress at this time. Patient and/or cc3 family updated on plan of care and expected duration. Pain level reassessed. Patient is alert, oriented x 3, equal unlabored respirations, skin warm/dry/pink. Patient left ER for admission vitally stable by wheelchair escorted by me. Patient denies pain at this time. Patient states feeling better. Patient states symptoms have improved. Vital Signs: 08/05 22:15 BP 144 / 104; Pulse 72; Resp 16 S; Temp 97.8(O); Pulse Ox 98% on R/A; Weight 116.57 kg bb (R); Height 5 ft. 5 in. (165.10 cm) (R); Pain 5/10; 22:38 BP 91 / 50; Pulse 81; Resp 16 S; Temp 97.8(O); Pulse Ox 99% on R/A; cc3 23:30 BP 107 / 82; Pulse 72; Resp 18 S; Temp 97.8(O); Pulse Ox 100% ; cc3 08/06 00:30 BP 103 / 53; Pulse 75; Resp 20 S; Temp 97.9(O); Pulse Ox 100% on R/A; cc3 01:30 BP 133 / 82; Pulse 84; Resp 18 S; Temp 97.8(O); Pulse Ox 100% on R/A; cc3 02:09 BP 113 / 47; Pulse 74; Resp 20 S; Temp 97.5(O); Pulse Ox 100% on R/A; cc3 03:15 BP 116 / 78; Pulse 75; Resp 20 S; Temp 97.5(O); Pulse Ox 100% on R/A; cc3 08/05 22:15 Body Mass Index 42.77 (116.57 kg, 165.10 cm) bb NIH Stroke Scale Scores: 08/05 22:10 NIHSS Score: 0 cc3 ED Course: 21:36 Patient arrived in ED. ds1 21:37 Chandler Artis MD is Attending Physician. ps1 21:51 CT Stroke Brain w/o Contrast In Process Unspecified. EDMS 21:55 Arm band placed on Patient placed in an exam room, on a stretcher, on lifestyle director, bb on pulse oximetry. 22:05 Maintain EMS IV. Dressing intact. Good blood return noted. Site clean \T\ dry. Gauge \T\ cc 3 site: gauge 20 left ACV. 22:05 Patient has correct armband on for positive identification. Placed in gown. Bed in low cc3 position. Call light in reach. Side rails up X2. plant floor automation manager on. Pulse ox on. NIBP on. 22:06 Stroke CXR 1 View In Process Unspecified. EDMS 22:06 CT Neck Angio In Process Unspecified. EDMS 22:06 Head angio In Process Unspecified. EDMS 22:11 Emily Bales is Primary Nurse. cc3 22:11 Triage completed. bb 22:33 Notified ED physician of a critical lab result(s). 1.4 Magnesium. ak1 08/06 01:[address] MD is Hospitalizing Provider. ps1 02:30 No provider procedures requiring assistance completed. Patient admitted, IV remains in cc3 place. Administered Medications: 08/05 23:05 Drug: Magnesium Sulfate 2 grams Route: IVPB; Infused Over: 2 hrs; Site: left cc3 antecubital; 08/06 01:10 Follow up: Response: No adverse reaction; IV Status: Completed infusion; IV Intake: [id number] Point of Care Testing: Blood Glucose: 08/05 22:08 Blood Glucose: 130 mg/dL; ak1 Ranges: Intake: 08/06 01:10 IV: 50ml; Total: 50ml. cc3 Outcome: 01:55 Decision to Hospitalize by Provider. ps1 02:30 Admitted to Tele accompanied by nurse, via wheelchair, room 404, with chart, Report cc3 called to MARION Juarez 02:30 Condition: stable 02:30 Instructed on the need for admit, Demonstrated understanding of instructions. 03:30 Patient left the ED. cc3 NIH Stroke Scale - NIH Stroke Score Date: 08/05/2018 Time: 22:10 Total Score = 0 1a. Level of Consciousness (LOC) - 0(Alert) 1b. Level of Consciousness (LOC) (Year \T\ Age) - 0(Both) 1c. LOC Commands (Open \T\ Closes Eyes/Policy Services Representative) - 0(Both) 2. Best Gaze (Lateral Gaze Paresis) - 0(Normal) 3. Visual Field Loss - 0(No visual loss) 4. Facial Palsy - 0(Normal) 5a. Left Arm: Motor (10-second hold) - 0(No drift) 5b. Right Arm: Motor (10-second hold) - 0(No drift) 6a. Left Leg: Motor (5-second hold - always test supine) - 0(No drift) 6b. Right Leg: Motor (5-second hold - always test supine) - 0(No drift) 7. Limb Ataxia (finger/nose \T\ heel/kent - test with eyes open) - 0(Absent) 8. Sensory Loss (pinprick arms/legs/face) - 0(Normal) 9. Best Language: Aphasia (description/naming/reading) - 0(No aphasia) 10. Dysarthria (speech clarity - read or repeat words) - 0(Normal) 11. Extinction and Inattention (visual/tactile/auditory/spatial/personal) - 0(No abnormality) Initials: cc3 Signatures: Dispatcher [employer] [facility] Antonieta Sutton ds1 Clarisse March RN RN Roxy Guo RN RN ak1 Chandler Artis MD MD ps1 Cordel, Charlene cc3 Corrections: (The following items were deleted from the chart) 01:42 00:30 BP 103 / 53; Pulse 75bpm; Resp 20bpm; Spontaneous; Pulse Ox 100% RA; cc3 cc3 01:42 05/ 23:30 BP 107 / 82; Pulse 72bpm; Resp 18bpm; Spontaneous; Pulse Ox 100%; cc3 cc3 08/06 02:22 02:09 BP 113 / 47; Pulse 74bpm; Resp 20bpm; Spontaneous; Pulse Ox 100% RA; cc3 cc3
[2018-08-06 04:44] VITALS: BMI 42.4
[2018-08-06 05:53] LABS: ALT/SGPT 16 U/L (12-78); AST/SGOT 14 U/L (15-37); Albumin 3.4 g/dL (3.4-5.0); Alkaline Phosphatase 123 U/L (45-117); BUN Blood Urea Nitrogen 14 mg/dL (7-18); Bicarbonate 28 mmol/L (21-32); Bilirubin Direct < 0.1 mg/dL (0-0.2); Bilirubin Total 0.4 mg/dL (0.2-1.0); Glucose Level 113 mg/dL (74-106); Potassium 3.1 mmol/L (3.5-5.1); Protein, Total 7.7 g/dL (6.4-8.2); Sodium Level 139 mmol/L (136-145)
[2018-08-06] MEDS ORDERED: TIZANIDINE 4 MG TABLET PO PRN (08:20)
[2018-08-06] MEDS ORDERED: ALBUTEROL INHALER 60 PUFF/8 GM IH PRN (08:20)
--- NOTE | 2018-08-06 08:33 | EKG ---
Test Date: 2018-08-05 Test Time: 22:08:40 Night Time Nanny: LEONARD MEASUREMENT RESULTS: Intervals: Rate: 71 KS: 176 QRSD: 82 QT: 396 QTc: 430 [place]: P: 52 KS: 176 QRS: 18 T: 26 INTERPRETIVE STATEMENTS: Normal sinus rhythm Possible Left atrial enlargement Borderline ECG Compared to ECG 09/19/2011 21:44:17 No significant changes Electronically Signed On 08-06-18 08:32:32 CDT by Mesfin Sanchez
[2018-08-06 08:49] VITALS: O2SAT 96
[2018-08-06] MEDS ORDERED: PROPRANOLOL HCL 10 MG TAB PO SCH (09:00)
[2018-08-06] MEDS ORDERED: ROPINIROLE HCL 1 MG TAB PO SCH (09:00)
[2018-08-06] MEDS ORDERED: BUPROPION HCL XL 150 MG TAB PO SCH (09:00)
[2018-08-06] MEDS ORDERED: DULOXETINE 30 MG CAP PO SCH (09:00)
[2018-08-06] MEDS ORDERED: POTASSIUM CL SA 10 MEQ TAB PO ONE (09:00)
[2018-08-06] MEDS ORDERED: PALIPERIDONE 6 MG PO SCH (09:00)
[2018-08-06] MEDS ORDERED: ENOXAPARIN 40 MG/0.4 ML SQ SCH (09:00)
[2018-08-06] MEDS ORDERED: FOLIC ACID 1 MG TABLET PO SCH (09:00)
[2018-08-06] MEDS ORDERED: ASPIRIN EC 81 MG TAB PO SCH (09:00)
[2018-08-06] MEDS ORDERED: HOME MED 1 EA UNK (Fluticasone Propionate [Flovent Diskus] 50 MCG) IH SCH (09:00)
--- NOTE | 2018-08-06 09:53 | P.DS ---
Admission Date: 08/06/18 Discharge Date: 08/06/18 Primary Care Provider: Dr. Bowman; Pain management-Dr. Wills Disposition: ROUTINE DISCHARGE Discharge Condition: GOOD Reason for Admission: right sided facial numbness Consultations: none Procedures: CT head: Unremarkable. No intercranial abnormalities. CT angiogram head/neck: Unremarkable. Vessels widely patent. Medical Problem List: Right sided facial drop and weakness, resolved, likely medication related vs TIA Hypokalemia and hypomagnesia Schizophrenia Bipolar disorder COPD GERD Hyperlipidemia Chronic pain Anemia of chronic disease with B12 deficiency Brief History of Present Illness: 52-year-old female presented to the emergency room with right-sided facial weakness and numbness. Patient with underlying schizophrenia, bipolar disorder, chronic pain and COPD. By the time the patient arrived to the ER symptoms had resolved. Patient was admitted for further evaluation. Initial CT scan of the head and angiogram of the head and neck were unremarkable. Hospital Course: Patient presented with right-sided facial droop and weakness. Patient was evaluated in the hospital. CT head, and CT angiogram of the head and neck were unremarkable. Symptoms had resolved prior to admission. No further symptoms develop. Patient had reported symptoms after she had restarted 1 of her schizophrenia medication-Invega, which she had not been taking for several months due to side effect of edema. The patient was monitored closely. Patient found to have low potassium and magnesium. This was replaced. LDL slightly decreased. There is also some suspicion of TIA. Symptoms likely related to medication. Patient will be discharged home. Patient will continue with aspirin 81 mg daily and Lipitor 10 mg daily. Recommend to follow up with her PCP within 1 week to follow up this hospitalization. Will recommend outpatient echocardiogram, Coreg Doppler, and stroke protocol MRI to further evaluate. Patient may follow up with neurology in 1-2 weeks to follow up this hospitalization if symptoms persist. Patient may also continue with folic acid 1 mg daily. Patient found to have anemia of chronic disease. Patient found to have low B12 level. At discharge she will continue with vitamin-B 12 daily. Recommend for PCP to further monitor and adjust medication. Patient had been taking hydrochlorothiazide due to suspected edema. Patient with low potassium. At discharge hydrochlorothiazide has been discontinued. Recommend to monitor blood pressure closely. If her blood pressure is above 140 /90 consistently patient may require alternative medication. This can be further addressed by her PCP. Patient with bipolar disorder and schizophrenia. As recommended above she is to stop Invega. Patient may continue with Xanax 1 mg 3 times a day, Bupropion XL 150 mg daily, Cymbalta 60 mg daily, melatonin 10 mg at bedtime. Recommendation is for the patient to establish care with psychiatry in the area to further evaluate and treat. Patient with essential tremors. Patient may continue with her medication of propanolol 20 mg daily and Requip 2 mg daily. Recommend to follow up with neurology to establish care and further address. Fall precautions to be in place. Patient with COPD. Patient will continue with her medication of Flovent and ProAir as directed. Recommend to follow up with pulmonology as an outpatient to further address. Patient with chronic pain. Patient seen by pain management. Patient may continue with Zanaflex as needed for muscle spasm. Patient also takes Suboxone b.i.d.. This can be monitored closely and followed up with pain management. Vital Signs/Physical Exam: Temp Pulse Resp BP Pulse Ox 97.7 F 101 H 18 142/83 H 96 08/06/18 08:00 08/06/18 08:00 08/06/18 08:00 08/06/18 08:00 08/06/18 08:00 General: Alert, In no apparent distress, Oriented x3, Cooperative, Other ( increased anxiety) HEENT: Atraumatic Neck: Supple Respiratory: Clear to auscultation bilaterally, Normal air movement Cardiovascular: Normal pulses, Regular rate/rhythm Gastrointestinal: Normal bowel sounds, Soft and benign, Non-distended, No tenderness, No masses, No rebound, No guarding Musculoskeletal: No erythema, No tenderness, No warmth Integumentary: No tenderness/swelling, No erythema, No warmth, No cyanosis Neurological: Normal speech, Normal strength at 5/5 x4 extr, Normal tone, Other (increased anxiety) Laboratory Data at Discharge: WBC 7.3 K/uL (4.3-10.9) 08/05/18 21:59 Hgb 11.6 g/dL (12.0-15.0) L 08/05/18 21:59 Hct 34.9 % (36.0-45.0) L 08/05/18 21:59 Plt Count 252 K/uL (152-406) 08/05/18 21:59 PT 13.4 SECONDS (9.5-12.5) H 08/05/18 21:59 INR 1.14 08/05/18 21:59 APTT 37.6 SECONDS (24.3-36.9) H 08/05/18 21:59 Sodium 139 mmol/L (136-145) 08/06/18 04:56 Potassium 3.1 mmol/L (3.5-5.1) L 08/06/18 04:56 BUN 14 mg/dL (7-18) 08/06/18 04:56 Creatinine 1.05 mg/dL (0.55-1.3) 08/06/18 04:56 Glucose 113 mg/dL (74-106) H 08/06/18 04:56 Magnesium 2.0 mg/dL (1.8-2.4) D 08/06/18 04:56 Total Bilirubin 0.4 mg/dL (0.2-1.0) 08/06/18 04:56 AST 14 U/L (15-37) L 08/06/18 04:56 ALT 16 U/L (12-78) 08/06/18 04:56 Alkaline Phosphatase 123 U/L (45-117) H 08/06/18 04:56 Home Medications: ALPRAZolam [Xanax*] 1 mg PO TID 08/06/18 Albuterol Sulfate [Proair Hfa] 8.5 gm IH BIDP PRN 08/06/18 Aspirin [Aspirin EC 81 MG] 81 mg PO DAILY #90 tablet. 08/06/18 Atorvastatin Calcium [Lipitor] 10 mg PO BEDTIME #30 tab 08/06/18 Buprenorphine HCl/Naloxone HCl [Suboxone 8 mg-2 mg Sl Film] 2.5 each SL BID 03/26 Bupropion HCl [Bupropion Xl] 150 mg PO DAILY 08/06/18 Cyanocobalamin (Vitamin B-12) [Vitamin B-12] 1,000 mcg PO DAILY #90 tablet 08/06 Duloxetine HCl [Cymbalta] 60 mg PO DAILY 08/06/18 Fluticasone Propionate [Flovent Diskus] 50 mcg IH DAILY 08/06/18 Folic Acid 1 mg PO DAILY 08/06/18 Magnesium Oxide [Mag 0X Tab] 400 mg PO DAILY #30 tab 08/06/18 Melatonin 10 mg PO BEDTIME 08/06/18 Propranolol HCl 20 mg PO DAILY 08/06/18 Ropinirole HCl 2 mg PO DAILY 08/06/18 Tizanidine HCl [Zanaflex] 4 mg PO BID 08/06/18 Zolpidem Tartrate [Ambien*] 10 mg PO BEDTIME 08/06/18 New Medications: Aspirin [Aspirin EC 81 MG] 81 mg PO DAILY #90 tablet. Atorvastatin Calcium [Lipitor] 10 mg PO BEDTIME #30 tab Cyanocobalamin (Vitamin B-12) [Vitamin B-12] 1,000 mcg PO DAILY #90 tablet Magnesium Oxide [Mag 0X Tab] 400 mg PO DAILY #30 tab Patient Discharge Instructions: 1. Recommend a follow up with her PCP in 1 week to follow up this hospitalization. 2. Patient presented with right-sided facial droop and weakness. Patient was evaluated in the hospital. CT head, and CT angiogram of the head and neck were unremarkable. Symptoms had resolved prior to admission. No further symptoms develop. Patient had reported symptoms after she had restarted 1 of her schizophrenia medication-Invega, which she had not been taking for several months due to side effect of edema. The patient was monitored closely. Patient found to have low potassium and magnesium. This was replaced. LDL slightly decreased. There is also some suspicion of TIA. Symptoms likely related to medication. Patient will be discharged home. Patient will continue with aspirin 81 mg daily and Lipitor 10 mg daily and if magnesium daily. Recommend to follow up with her PCP within 1 week to follow up this hospitalization. Recommend to recheck lab-BMP, magnesium level in 1 week. Will recommend outpatient echocardiogram, Coreg Doppler, and stroke protocol MRI to further evaluate. Patient may follow up with neurology in 1-2 weeks to follow up this hospitalization if symptoms persist. Patient may also continue with folic acid 1 mg daily. 3. Patient found to have anemia of chronic disease. Patient found to have low B12 level. At discharge she will continue with vitamin-B 12 daily. Recommend for PCP to further monitor and adjust medication. 4. Patient had been taking hydrochlorothiazide due to suspected edema. Patient with low potassium. At discharge hydrochlorothiazide has been discontinued. Recommend to monitor blood pressure closely. If her blood pressure is above 140/90 consistently patient may require alternative medication. This can be further addressed by her PCP. 5. Patient with bipolar disorder and schizophrenia. As recommended above she is to stop Invega. Patient may continue with Xanax 1 mg 3 times a day , Bupropion XL 150 mg daily, Cymbalta 60 mg daily, melatonin 10 mg at bedtime. Recommendation is for the patient to establish care with psychiatry in the area to further evaluate and treat. 6. Patient with essential tremors. Patient may continue with her medication of propanolol 20 mg daily and Requip 2 mg daily. Recommend to follow up with neurology to establish care and further address. Fall precautions to be in place. 7. Patient with COPD. Patient will continue with her medication of Flovent and ProAir as directed. Recommend to follow up with pulmonology as an outpatient to further address. 8. Patient with chronic pain. Patient seen by pain management. Patient may continue with Zanaflex as needed for muscle spasm. Patient also takes Suboxone b.i.d.. This can be monitored closely and followed up with pain management. Diet: AHA Activity: Ad napoleon Time spent managing pt's care (in minutes): 55
[2018-08-06] MEDS: ALPRAZOLAM 1 MG TABLET PO SCH ×2 (10:00→14:22)
[2018-08-06 10:09] LABS: Ferritin 89.7 ng/mL (8-388); Thyroid Stimulating Hormone 3.22 uIU/mL (0.360-3.740)
[2018-08-06 12:27] VITALS: BP 122/90; TEMP 97.4
[2018-08-06] MEDS ORDERED: MELATONIN 5 MG TABLET PO SCH (21:00)
[2018-08-06] MEDS ORDERED: ZOLPIDEM TARTRATE 10 MG TABLET PO SCH (21:00)
[2018-08-06] MEDS ORDERED: ATORVASTATIN 20 MG TAB PO SCH (21:00)
--- NOTE | 2018-08-08 11:27 | RAD REPORT ---
EXAM DESCRIPTION: Neck Angio (accession [id number]), Head angio (accession [id number]) CLINICAL HISTORY: 52 years Female stroke with weakness and slurred speech. COMPARISON: None. TECHNIQUE: Contiguous axial images obtained through the head and neck during the infusion of IV cont rast. Reformatted images obtained. 3-D MIP reformatted images obtained. NASCET criteria utilized fo r the evaluation of any stenotic lesions. This exam was performed according to our department optimization program which includes automated exp osure control, adjustment of the mA and/or kv according to patient size and/or use of iterative recon struction technique. FINDINGS: Small mucous retention cyst in the left maxillary sinus. There is dental disease most pronounced involving the right maxillary teeth. The aortic arch and proximal great vessels appear widely patent. There is a focal area just above the left vertebral artery origin which is suboptimally visualized on this study. The bilateral vertebral arteries and basilar artery otherwise appear widely patent. The bilateral common and internal carotid arteries appear widely patent. There is good filling of the larger intracranial arterial branches. No aneurysms or vascular malformations are identified. The dural venous sinuses are patent. IMPRESSION: The proximal portion of the left vertebral artery is suboptimally visualized but otherwi se the bilateral vertebral and carotid arteries appear widely patent. There is good filling of the larger intracranial arterial branches. The findings were called to Dr. Artis at 10:30 PM. Electronically signed by: Jah Johnston MD 08/05/2018 10:32 PM CDT Due to temporary technical issues with the PACS/Fluency reporting system, reports are being signed by the in house radiologist as a courtesy to ensure prompt reporting. The interpreting radiologist is f ully responsible for the content of the report.
--- NOTE | 2018-08-08 11:29 | RAD REPORT ---
EXAM DESCRIPTION: Neck Angio (accession [id number]), Head angio (accession [id number]) CLINICAL HISTORY: 52 years Female stroke with weakness and slurred speech. COMPARISON: None. TECHNIQUE: Contiguous axial images obtained through the head and neck during the infusion of IV cont rast. Reformatted images obtained. 3-D MIP reformatted images obtained. NASCET criteria utilized fo r the evaluation of any stenotic lesions. This exam was performed according to our department optimization program which includes automated exp osure control, adjustment of the mA and/or kv according to patient size and/or use of iterative recon struction technique. FINDINGS: Small mucous retention cyst in the left maxillary sinus. There is dental disease most pronounced involving the right maxillary teeth. The aortic arch and proximal great vessels appear widely patent. There is a focal area just above the left vertebral artery origin which is suboptimally visualized on this study. The bilateral vertebral arteries and basilar artery otherwise appear widely patent. The bilateral common and internal carotid arteries appear widely patent. There is good filling of the larger intracranial arterial branches. No aneurysms or vascular malformations are identified. The dural venous sinuses are patent. IMPRESSION: The proximal portion of the left vertebral artery is suboptimally visualized but otherwi se the bilateral vertebral and carotid arteries appear widely patent. There is good filling of the larger intracranial arterial branches. The findings were called to Dr. Artis at 10:30 PM. Electronically signed by: Jah Johnston MD 08/05/2018 10:32 PM CDT Due to temporary technical issues with the PACS/Fluency reporting system, reports are being signed by the in house radiologist as a courtesy to ensure prompt reporting. The interpreting radiologist is f ully responsible for the content of the report.
--- NOTE | 2018-08-08 11:49 | RAD REPORT ---
EXAM DESCRIPTION: Ct Stroke Brain Wo Cont ADDENDUM #1 THIS REPORT CONTAINS FINDINGS THAT MAY BE CRITICAL TO PATIENT CARE: Critical findings were verbally discussed via telephone conference with Chandler Artis by Dr. Charlotte Meadows on 08/05/2018 10:01 P M CDT .The results were acknowledged and understood. Electronically signed by: Charlotte Meadows MD 08/05/2018 10:01 PM CDT End of Addendum EXAM DESCRIPTION: CT Head Without Intravenous Contrast CLINICAL HISTORY: 52 years old and is Female; TIA TECHNIQUE: Axial computed tomography images of the head/brain without intravenous contrast. Sagitt al and coronal reformatted images were created and reviewed. This CT exam was performed using one o r more of the following dose reduction techniques: automated exposure control, adjustment of the mA and/or kV according to patient size, and/or use of iterative reconstruction technique. COMPARISON: No relevant prior studies available. FINDINGS: Limitations: None. Brain: Unremarkable. No hemorrhage. No significant white matter disease. No edema. Ventricles: Unremarkable. No ventriculomegaly. Bones/joints: Unremarkable. No acute fracture. Soft tissues: Unremarkable. Sinuses: Unremarkable as visualized. No acute sinusitis. Mastoid air cells: Unremarkable as visualized. No mastoid effusion. IMPRESSION: No acute findings. Electronically signed by: Charlotte Meadows MD 08/05/2018 9:58 PM CDT Due to temporary technical issues with the PACS/Fluency reporting system, reports are being signed by the in house radiologist as a courtesy to ensure prompt reporting. The interpreting radiologist is f ully responsible for the content of the report.
== END 2018-08-06 14:25 | disposition home or self-care (01) ==
LOC: ER 21:36 → ERHOLD 08-06 01:54 → 4TH 08-06 02:43
PROVIDERS: ADMIT Internal Medicine; ATTEND Internal Medicine
DX: R29.810 Facial weakness (principal); G25.0 Essential tremor; E87.6 Hypokalemia; E83.42 Hypomagnesemia; F20.9 Schizophrenia, unspecified; F31.9 Bipolar disorder, unspecified; J44.9 Chronic obstructive pulmonary disease, unspecified; K21.9 Gastro-esophageal reflux disease without esophagitis; E78.5 Hyperlipidemia, unspecified; G89.29 Other chronic pain; D51.3 Other dietary vitamin B12 deficiency anemia
CPT/HCPCS: 96365; 93005; 85025; 80048; 36415; 83735 ×2; 85610; 80061; 82962; 80076; 85730; 84443; 81003; 84484; 84439; 82728; 82607; 83540; 80053; 84466; 70496; 70498; 70450; 71045; 97163; 99291; 99292; 96366; Q9967; J1650; J3475; G0378 ×2

== ENCOUNTER 2018-11-15 11:05 | Emergency (ER) | payer OTHER ==
--- OUTSIDE RECORDS SUMMARY | 2018-11-15 11:08 | XMS REPORT | Continuity of Care Document ---
:1965 Author Organization [employer] Care Team Providers Name Role Phone [employer] Unavailable Unavailable Problems Problem Status Onset Classification Date Comments Source Date Reported Benzodiazepine Resolved 12/14/19 Problem 07/12/2017 Medical dependence 17 Group (disorder) Anxiolytic Active Problem 07/12/2017 Medical dependence Group (disorder) Drug therapy Active Problem 07/12/2017 Medical finding (finding) Group Schizophrenia Active Problem 07/12/2017 Medical (disorder) Group Seen by Active Problem 07/12/2017 Medical counsellor Group (finding) Medications No Data Provided for This Section Allergies, Adverse Reactions, Alerts No Known Medication Allergies Immunizations No Data Provided for This Section Results No Data Provided for This Section Pathology Reports No Data Provided for This Section Diagnostic Reports No Data Provided for This Section Consultation Notes No Data Provided for This Section Discharge Summaries No Data Provided for This Section History and Physicals No Data Provided for This Section Vital Signs No Data Provided for This Section Encounters Location Location Encounter Encounter Reason Attending ADM DC Status Source Details Type Number For Provider Date Date Visit Outpatient [id number] [facility] 12/07 [facility] [place] [facility] [id number] [facility] 03/26 [facility] [id number] [facility] 03/26 03/26 [facility] [id number] [facility] 04/05 [facility] [id number] [place] 04/05 04/05 [facility] Procedures Procedure Code Date Perfomer Comments Source Operation [id number] 03/08/2003 [facility] Cholecystectomy [id number] 03/08/2000 [facility] Assessment and Plan No Data Provided for This Section Plan of Care No Data Provided for This Section Social History Social History Date Source Social History TypeResponse 12/07/2016 [facility] Substance Abuse Use: Past. Type: Prescription medications. Alcohol Past Smoking Status Current every day smoker; Type: Cigarettes; Exposure to Tobacco Smoke Patient smokes; Cigarette Smoking Last 365 Days Yes; Reg Smoking Cessation Counseling No ; Tobacco use per day: 10; entered on: 12/07/16 Family History No Data Provided for This Section Advance Directives No Data Provided for This Section Functional Status No Data Provided for This Section
--- OUTSIDE RECORDS SUMMARY | 2018-11-15 11:09 | XMS REPORT ---
:1965 [facility] Address [address] [place] [address] [address] [place] [address] Care Team Providers Name Role Phone Unavailable Unavailable Unavailable Problems This patient has no known problems. Allergies, Adverse Reactions, Alerts This patient has no known allergies or adverse reactions. Medications This patient has no known medications.
[2018-11-15 12:43] LABS: Protime INR 1.03
[2018-11-15 12:44] LABS: Absolute Lymphocytes (CBC) 1.6 K/uL (0.7-4.9); Basophils % 0.8 % (0-1.3); Hematocrit 26.9 % (36.0-45.0); Lymphocytes % 29.1 % (15.3-44.8); MPV 8.6 fL (7.6-11.3); RBC Red Blood Cell Count 3.14 M/uL (3.86-4.86)
[2018-11-15 12:55] LABS: ALT/SGPT 28 U/L (12-78); AST/SGOT 23 U/L (15-37); Albumin 3.2 g/dL (3.4-5.0); Alkaline Phosphatase 134 U/L (45-117); BUN Blood Urea Nitrogen 28 mg/dL (7-18); Bicarbonate 24 mmol/L (21-32); Bilirubin Direct < 0.1 mg/dL (0-0.2); Bilirubin Total 0.2 mg/dL (0.2-1.0); Glucose Level 103 mg/dL (74-106); Magnesium 1.7 mg/dL (1.8-2.4); NT PRO-BNP 472 pg/mL (<125); Potassium 5.4 mmol/L (3.5-5.1); Protein, Total 6.9 g/dL (6.4-8.2); Sodium Level 139 mmol/L (136-145); Troponin (Emerg Dept Use Only) < 0.02 ng/mL (0.0-0.045)
[2018-11-15] MEDS ORDERED: NA CHLORIDE 0.9% 1,000 ML ONE (13:32)
[2018-11-15 13:49] LABS: Urine Blood NEGATIVE (NEG); Urine Glucose NEGATIVE (NEG); Urine Protein NEGATIVE (NEG); Urine Specific Gravity 1.015 (1.005-1.030)
[2018-11-15 17:29] LABS: Potassium 5.8 mmol/L (3.5-5.1)
--- NOTE | 2018-11-15 17:45 | ER ---
Nurse's Notes [facility] Name: Tabatha Chambers Age: 53 yrs Sex: Female : 1965 Arrival Date: 11/15/2018 Time: 11:07 Bed 18 Private MD: Maged Bowman E Diagnosis: Hyperkalemia Presentation: 11/15 11:15 Presenting complaint: Child states: hasn't been mentally stable, visual hallucinations, iw seeing people that aren't there, not sleeping, hx of bipolar schizophrenic, with psychotic features, and depression, currently on psych meds for less than 5 days, hallucinations started last month, denies suicidal thoughts or homicidal thoughts at this time, prescription prescribed by Codie Maharaj, PCP is Dr. Bowman. Transition of care: patient was not received from another setting of care. Onset of symptoms was November 15, 2018. Risk Assessment: Do you want to hurt yourself or someone else? Patient reports no desire to harm self or others. Initial Sepsis Screen: Does the patient meet any 2 criteria? No. Patient's initial sepsis screen is negative. Does the patient have a suspected source of infection? No. Patient's initial sepsis screen is negative. Care prior to arrival: None. 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 - Social history:: Smoking status: . - Ebola Screening: : Patient negative for fever greater than or equal to 101.5 degrees Fahrenheit, and additional compatible Ebola Virus Disease symptoms Patient denies exposure to infectious person Patient denies travel to an Ebola-affected area in the 21 days before illness onset No symptoms or risks identified at this time. - Family history:: not pertinent. Screenin:36 Abuse screen: Denies threats or abuse. Denies injuries from another. Nutritional ph screening: No deficits noted. Tuberculosis screening: No symptoms or risk factors identified. Fall Risk None identified. Assessment: 11:35 General: Appears in no apparent distress. comfortable, obese, well groomed, Behavior is ph calm, cooperative, drowsy, quiet, Denies fever, feeling ill. Pain: Denies pain. Neuro: Level of Consciousness is awake, alert, obeys commands, Oriented to person, place, time, situation. Cardiovascular: Reports fatigue, Denies chest pain, lightheadedness, shortness of breath. Respiratory: Airway is patent Respiratory effort is even, unlabored. GI: No signs and/or symptoms were reported involving the gastrointestinal system. Patient currently denies abdominal pain, diarrhea, nausea, vomiting. Derm: Skin is intact, Skin is pink, warm \\T\\ dry. Musculoskeletal: Circulation, motion, and sensation intact. Range of motion: intact in all extremities. 13:00 Reassessment: Patient appears in no apparent distress at this time. Patient and/or ph family updated on plan of care and expected duration. Pain level reassessed. Patient is alert, oriented x 3, equal unlabored respirations, skin warm/dry/pink. 14:29 Reassessment: Patient appears in no apparent distress at this time. Patient and/or ph family updated on plan of care and expected duration. Pain level reassessed. Patient is alert, oriented x 3, equal unlabored respirations, skin warm/dry/pink. Pt ambulated to restroom w/ steady gait. 15:30 Reassessment: Patient appears in no apparent distress at this time. Patient and/or ph family updated on plan of care and expected duration. Pain level reassessed. Patient is alert, oriented x 3, equal unlabored respirations, skin warm/dry/pink. Pt resting quietly, fluid bolus infusing, approx 300 mL left in bag. 16:15 Reassessment: Patient appears in no apparent distress at this time. Patient and/or ph family updated on plan of care and expected duration. Pain level reassessed. Patient is alert, oriented x 3, equal unlabored respirations, skin warm/dry/pink. IV fluids complete, repeat BMP sent. 17:18 Reassessment: Patient appears in no apparent distress at this time. Patient and/or ph family updated on plan of care and expected duration. Pain level reassessed. Patient is alert, oriented x 3, equal unlabored respirations, skin warm/dry/pink. Pt resting quietly, awaiting results of repeat BMP. 17:36 Reassessment: Patient appears in no apparent distress at this time. Patient and/or ph family updated on plan of care and expected duration. Pain level reassessed. Patient is alert, oriented x 3, equal unlabored respirations, skin warm/dry/pink. Pt standing in hallway, requesting to leave, states, " I need to go so I can get my prescriptions." Also noted that pt d/c own IV, appears to be intact w/ no bleeding noted from site. 17:50 Reassessment: ERP at bedside to speak w/ pt, advises that pt be admitted for high K+, ph pt refuses to be admitted, will leave AMA. Psych: 11:35 Subjective: Delusions are denied, Hallucinations are auditory, visual, Having thoughts ph of denies suicidal or homicidal thoughts. Objective: Patient is cooperative, Speech is slow, soft, Affect is flat. Interventions: Patient placed in hospital gown. Urine collected and sent for urine drug test. Suicide Risk Assessment: Sad Person Scale: Sex of patient: Female: Score 0 points. Age of patient: Score 0 point if patient falls outside of specified age parameters. Depression: Score 1 point if signs of depression are present. Previous Attempt: Score 0 point if patient has not previously attempted suicide. Substance Abuse: Score 0 point if patient does not abuse alcohol or drugs. Rational Thinking: Score 0 point if patient has rational thinking. Social Support: Score 0 if social support is present/available. Organized Plan: Score 0 if patient did not have an organized plan in place. Relationship: Score 1 point if patient is , , , or for a single male Chronic Sickness: Score 0 point if patient does not have a chronic illness, debilitating, or severe disorder. TOTAL POINTS: If total points are 0-2, proposed clinical action is to send home with follow-up. Safety Checks: Personal items have not been removed. Door is closed to patient's room. Visitors are present. Pt denies substance abuse. Commitment: Pt will not be commited. Vital Signs: 11:20 BP 96 / 51; Pulse 70; Resp 16; Temp 97.6(O); Pulse Ox 100% on R/A; Weight 107.95 kg; iw Height 5 ft. 4 in. (162.56 cm); Pain 8/10; 12:26 BP 89 / 51; Pulse 69; Resp 16; Temp 98.0(O); Pulse Ox 100% on R/A; mh5 13:36 BP 87 / 65; Pulse 71; Resp 18; Pulse Ox 100% on R/A; ph 14:30 BP 91 / 70; Pulse 71; Resp 18; Pulse Ox 99% on R/A; ph 15:37 BP 99 / 67; Pulse 74; Resp 16; Temp 98.1(TE); Pulse Ox 100% ; mh5 16:30 BP 100 / 64; Pulse 72; Resp 18; Pulse Ox 99% on R/A; ph 17:30 BP 101 / 68; Pulse 71; Resp 18; Temp 97.9; Pulse Ox 99% on R/A; ph 11:20 Body Mass Index 40.85 (107.95 kg, 162.56 cm) iw ED Course: 11:07 Patient arrived in ED. mr 11:07 Maged Bowman MD is Private Physician. mr 11:19 Triage completed. iw 11:20 Arm band placed on. iw 11:22 Chen Ashley MD is Attending Physician. ma2 11:27 Brooke Squires RN is Primary Nurse. jl7 12:21 Patient has correct armband on for positive identification. Bed in low position. Call 5 light in reach. Side rails up X 1. Warm blanket given. Pulse ox on. NIBP on. 12:21 Initial lab(s) drawn, by me, sent to lab. Inserted saline lock: 22 gauge in left 5 antecubital area, using aseptic technique. Blood collected. 13:03 EKG done, by alarm service technician. reviewed by Chen Ashley MD. at1 13:36 No provider procedures requiring assistance completed. ph 17:25 Notified ED physician of a critical lab result(s). k-[id number]. iw Administered Medications: 13:35 Drug: NS 0.9% 1000 ml Route: IV; Rate: 1 bolus; Site: left antecubital; ph 16:15 Follow up: Response: No adverse reaction; IV Status: Completed infusion; IV Intake: ph 1000ml 17:51 Not Given (Patient Refused): Insulin Regular Human 8 units IVP once ph 17:51 Not Given (Patient Refused): Albuterol 1.25 mg Inhalation once ph 17:51 Not Given (Patient Refused): D50W 50 ml IVP once; (1 amp) ph 17:51 Not Given (Patient Refused): Kayexalate 30 grams PO once ph Intake: 16:15 IV: 1000ml; Total: 1000ml. ph Outcome: 17:56 AMA Left before signing form. ph 17:56 Condition: stable 18:12 Patient left the ED. ph Signatures: Araceli Montoya Irene, MARION SCHULTZ iw Maru Lovell, resource engineer EKG [facility]1 Isidra Grijalva RN RN ph Martinez, [facility] Brooke Squires RN RN jl7 Chen Ashley MD MD ma2
--- NOTE | 2018-11-15 17:46 | EDPHYS ---
Physician Documentation [facility] Name: Tabatha Chambers Age: 53 yrs Sex: Female : 1965 Arrival Date: 11/15/2018 Time: 11:07 Bed 18 Private MD: Maged Bowman E ED Physician Chen Ashley HPI: 11/15 12:28 This 53 yrs old Female presents to ER via Ambulatory with complaints of Psych ma2 Problem. 12:28 Onset: The symptoms/episode began/occurred gradually, 3 day(s) ago. Associated signs ma2 and symptoms: The patient has no apparent associated signs or symptoms, Pertinent positives; unable to sleep, Pertinent negatives: anxiety, chills, hallucinations, headache. The patient has not experienced similar symptoms in the past, The patient has experienced a previous episode. 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 - Social history:: Smoking status: . - Ebola Screening: : Patient negative for fever greater than or equal to 101.5 degrees Fahrenheit, and additional compatible Ebola Virus Disease symptoms Patient denies exposure to infectious person Patient denies travel to an Ebola-affected area in the 21 days before illness onset No symptoms or risks identified at this time. - Family history:: not pertinent. ROS: 12:28 Constitutional: Negative for fever, chills, and weight loss, Cardiovascular: Negative ma2 for chest pain, palpitations, and edema, Respiratory: Negative for shortness of breath, cough, wheezing, and pleuritic chest pain, Abdomen/GI: Negative for abdominal pain, nausea, diarrhea, and constipation. 12:28 All other systems are negative. Exam: 12:28 Constitutional: This is a well developed, well nourished patient who is awake, alert, ma2 and in no acute distress. Cardiovascular: Regular rate and rhythm with a normal S1 and S2. No gallops, murmurs, or rubs. Normal PMI, no JVD. No pulse deficits. Respiratory: Lungs have equal breath sounds bilaterally, clear to auscultation and percussion. No rales, rhonchi or wheezes noted. No increased work of breathing, no retractions or nasal flaring. Abdomen/GI: Soft, non-tender, with normal bowel sounds. No distension or tympany. No guarding or rebound. No evidence of tenderness throughout. Back: No spinal tenderness. No costovertebral tenderness. Full range of motion. MS/ Extremity: Pulses equal, no cyanosis. Neurovascular intact. Full, normal range of motion. Neuro: Awake and alert, GCS 15, oriented to person, place, time, and situation. Cranial nerves II-XII grossly intact. Motor strength 5/5 in all extremities. Sensory grossly intact. Cerebellar exam normal. Normal gait. 12:28 Psych: Behavior/mood is pleasant, cooperative, Oriented to person, place, time, Patient has no thoughts/intents to harm self or others. Vital Signs: 11:20 BP 96 / 51; Pulse 70; Resp 16; Temp 97.6(O); Pulse Ox 100% on R/A; Weight 107.95 kg; iw Height 5 ft. 4 in. (162.56 cm); Pain 8/10; 12:26 BP 89 / 51; Pulse 69; Resp 16; Temp 98.0(O); Pulse Ox 100% on R/A; mh5 13:36 BP 87 / 65; Pulse 71; Resp 18; Pulse Ox 100% on R/A; ph 14:30 BP 91 / 70; Pulse 71; Resp 18; Pulse Ox 99% on R/A; ph 15:37 BP 99 / 67; Pulse 74; Resp 16; Temp 98.1(TE); Pulse Ox 100% ; mh5 16:30 BP 100 / 64; Pulse 72; Resp 18; Pulse Ox 99% on R/A; ph 17:30 BP 101 / 68; Pulse 71; Resp 18; Temp 97.9; Pulse Ox 99% on R/A; ph 11:20 Body Mass Index 40.85 (107.95 kg, 162.56 cm) iw MDM: 11:22 Patient medically screened. ma2 12:28 Differential diagnosis: acute psychotic break, depression, psychosis secondary to ma2 non-compliance. Data reviewed: vital signs, nurses notes. Counseling: I had a detailed discussion with the patient and/or guardian regarding: the historical points, exam findings, and any diagnostic results supporting the discharge/admit diagnosis, the presence of at least one elevated blood pressure reading (>120/80) during this emergency department visit, the need for outpatient follow up. 17:43 ED course: patient needs to be admitted to the hospital d/t hyperkalemia however she ma2 want to go home ama i explained risk including cardiac arrythmia and . 11/15 11:51 Order name: Basic Metabolic Panel; Complete Time: 13:17 ky11/15 11:51 Order name: CBC with Diff; Complete Time: 13: ky11/15 11:51 Order name: LFT's; Complete Time: 13: ky11/15 11:51 Order name: Magnesium; Complete Time: 13: ky11/15 11:51 Order name: NT PRO-BNP; Complete Time: 13: ky11/15 11:51 Order name: PT-INR; Complete Time: 13: ky11/15 11:51 Order name: Troponin (emerg Dept Use Only); Complete Time: 13: [facility] 11/15 12:44 Order name: Urine Dipstick--Ancillary (enter results); Complete Time: 14:26 bd 11/15 14:28 Order name: BMP: repeat creatinie and K please, post ivf; Complete Time: 17:32 ky11/15 11:51 Order name: EKG; Complete Time: 11:53 11/15 11:51 Order name: Cardiac monitoring; Complete Time: 12:56 [facility] 11/15 11:51 Order name: EKG - Nurse/Tech; Complete Time: 12:56 ky11/15 11:51 Order name: IV Saline Lock; Complete Time: 12:56 ky11/15 11:51 Order name: Labs collected and sent; Complete Time: 12:56 ky11/15 11:51 Order name: O2 Per Protocol; Complete Time: 12:56 ky11/15 11:51 Order name: O2 Sat Monitoring; Complete Time: 12:56 11/15 11:51 Order name: Urine Dipstick-Ancillary (obtain specimen); Complete Time: 12:56 ma2 Administered Medications: 13:35 Drug: NS 0.9% 1000 ml Route: IV; Rate: 1 bolus; Site: left antecubital; ph 16:15 Follow up: Response: No adverse reaction; IV Status: Completed infusion; IV Intake: ph 1000ml 17:51 Not Given (Patient Refused): Insulin Regular Human 8 units IVP once ph 17:51 Not Given (Patient Refused): Albuterol 1.25 mg Inhalation once ph 17:51 Not Given (Patient Refused): D50W 50 ml IVP once; (1 amp) ph 17:51 Not Given (Patient Refused): Kayexalate 30 grams PO once ph Disposition: 11/15/18 17:44 Patient has left against medical advice. Impression: Hyperkalemia. - Patients states they are going to Home. - Condition is Critical. - Prescriptions for Ativan 2 mg Oral Tablet - take 1 tablet by ORAL route every 8 hours As needed; 10 tablet. Lasix 20 mg Oral Tablet - take 1 tablet by ORAL route once daily; 20 tablet. cefpodoxime 200 mg Oral Tablet - take 1 tablet by ORAL route every 12 hours with food; 20 tablet. Follow up: Private Physician; When: Tomorrow; Reason: Continuance of care. - Problem is new. - Symptoms are unchanged. Signatures: Dispatcher [employer] EDGenia Anaya RN RN Isidra Grijalva RN RN Chen Ashley MD MD ma2 Corrections: (The following items were deleted from the chart) 18:12 17:44 11/15/2018 17:44 Patients has left against medical advice. Impression: ph Hyperkalemia. Patient states they are going to Home. Condition is Critical. Prescriptions for Ativan 2 mg Oral Tablet - take 1 tablet by ORAL route every 8 hours As needed; 10 tablet, Lasix 20 mg Oral Tablet - take 1 tablet by ORAL route once daily; 20 tablet, cefpodoxime 200 mg Oral Tablet - take 1 tablet by ORAL route every 12 hours with food; 20 tabletFollow up: Private Physician; When: Tomorrow; Reason: Continuance of care. Problem is new. Symptoms are unchanged. ma2
--- NOTE | 2018-11-15 18:31 | EKG ---
Test Date: 2018-11-15 Test Time: 12:57:32 Flue Gas Analyst: SOULEYMANE MEASUREMENT RESULTS: Intervals: Rate: 65 [place]: 178 QRSD: 80 QT: 400 QTc: 416 [place]: P: 49 [place]: 178 QRS: 12 T: 19 INTERPRETIVE STATEMENTS: Normal sinus rhythm Normal ECG Compared to ECG 08/05/2018 22:08:40 No significant changes Electronically Signed On 11-15-18 18:29:29 CDT by Iraj Lomas
[2018-11-15 18:54] VITALS: O2SAT 99
[2018-11-15 18:55] VITALS: BP 101/68; TEMP 97.9
== END 2018-11-15 18:12 | disposition left against medical advice (07) ==
LOC: ER 11:05
DX: E87.5 Hyperkalemia (principal); Z53.21 Procedure and treatment not carried out due to patient leaving prior to being seen by health care provider
CPT/HCPCS: 93005; 85025; 80048 ×2; 36415; 83735; 85610; 80076; 81003; 84484; 83880; J7030; 96360; 96361; 99285

== ENCOUNTER 2018-12-12 19:41 | Emergency (ER) | payer OTHER ==
[2018-12-12] MEDS ORDERED: NA CHLORIDE 0.9% 1,000 ML ONE (20:29)
[2018-12-12 20:47] LABS: Basophils % 1.2 % (0-1.3); Hematocrit 31.5 % (36.0-45.0); Lymphocytes % 26.6 % (15.3-44.8); MPV 8.5 fL (7.6-11.3); RBC Red Blood Cell Count 3.65 M/uL (3.86-4.86)
[2018-12-12 21:07] LABS: Urine Blood NEGATIVE (NEG); Urine Glucose NEGATIVE (NEG); Urine Protein NEGATIVE (NEG); Urine Specific Gravity 1.015 (1.005-1.030)
[2018-12-12 21:23] LABS: Protime INR 1.02
[2018-12-12 22:17] LABS: Urine Bacteria <20 /HPF (<20); Urine Culture Reflex Order REFLEXED; Urine RBC <5 /HPF (NONE SEEN)
--- NOTE | 2018-12-12 22:32 | RAD REPORT ---
EXAM DESCRIPTION: RAD - Chest Single View - 12/12/2018 9:38 pm CLINICAL HISTORY: COUGH Chest pain. COMPARISON: Chest Single View dated 08/05/2018; Chest Pa And Lat (2 Views) dated 05/25/2018; CHEST SIN GLE VIEW dated 01/29/2015 FINDINGS: Portable technique limits examination quality. The lungs are grossly clear. The heart is normal in size. No displaced fractures. IMPRESSION: No acute intrathoracic process suspected.
--- NOTE | 2018-12-12 22:34 | ER ---
Nurse's Notes [facility] Name: Tabatha Chambers Age: 53 yrs Sex: Female : 1965 Arrival Date: 12/12/2018 Time: 19:47 Bed 7 Private MD: Diagnosis: Weakness Presentation: 12/12 19:47 Presenting complaint: EMS states: c/o general body weakness, shaking and tingling of ca1 hands and feet. Pt c/o feeling cold and reports congestion for several days. Transition of care: patient was not received from another setting of care. Onset of symptoms was December 12, 2018. Risk Assessment: Do you want to hurt yourself or someone else? Patient reports no desire to harm self or others. Initial Sepsis Screen: Does the patient meet any 2 criteria? No. Patient's initial sepsis screen is negative. Does the patient have a suspected source of infection? No. Patient's initial sepsis screen is negative. Care prior to arrival: Glucose check: 97. 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 - Post-menopause ca1 Historical: - Allergies: 19:52 No Known Allergies; ca1 - Home Meds: 19:52 Alprazolam Oral [Active]; Bupropion Oral [Active]; Cymbalta Oral [Active]; Folic Acid ca1 Oral [Active]; Hydrochlorothiazide Oral [Active]; Invega Oral [Active]; Melatonin Oral [Active]; Propranolol Oral [Active]; ropinirole Oral [Active]; Suboxone [Active]; tizanidine Oral [Active]; Zolpidem Tartrate Oral [Active]; Seroquel Oral [Active]; - PMHx: 19:52 Anxiety; Bipolar disorder; Depression; Hypertension; Schizophrenia; ca1 - PSHx: 19:52 ankle left; Tubal ligation; ectopic ; Cholecystectomy; ca1 - Immunization history:: Adult Immunizations up to date. - Social history:: Smoking status: Patient/guardian denies using tobacco. - Ebola Screening: : Patient negative for fever greater than or equal to 101.5 degrees Fahrenheit, and additional compatible Ebola Virus Disease symptoms Patient denies exposure to infectious person Patient denies travel to an Ebola-affected area in the 21 days before illness onset No symptoms or risks identified at this time. Screenin:53 Abuse screen: Denies threats or abuse. Denies injuries from another. Nutritional ca1 screening: No deficits noted. Tuberculosis screening: No symptoms or risk factors identified. Fall Risk None identified. Assessment: 19:53 General: Appears in no apparent distress. uncomfortable, Behavior is cooperative, ca1 anxious, Reports chills for 12-24 hours, fatigue for 12-24 hours. Pain: Denies pain. Neuro: Level of Consciousness is awake, alert, obeys commands, Oriented to person, place, time, situation. Cardiovascular: Heart tones S1 S2 present Capillary refill < 3 seconds Patient's skin is warm and dry. Pulses are all present. Respiratory: Airway is patent Respiratory effort is even, unlabored, Respiratory pattern is regular, symmetrical, Breath sounds are clear bilaterally. GI: Abdomen is round non-distended, Bowel sounds present X 4 quads. Abd is soft and non tender X 4 quads. : No deficits noted. No signs and/or symptoms were reported regarding the genitourinary system. EENT: No deficits noted. No signs and/or symptoms were reported regarding the EENT system. Derm: Skin is intact, is healthy with good turgor, Skin is pink, warm \T\ dry. Musculoskeletal: Circulation, motion, and sensation intact. Capillary refill < 3 seconds, Range of motion: intact in all extremities. 20:50 Reassessment: Patient appears in no apparent distress at this time. Patient and/or ca1 family updated on plan of care and expected duration. Pain level reassessed. Patient is alert, oriented x 3, equal unlabored respirations, skin warm/dry/pink. 21:45 Reassessment: Patient appears in no apparent distress at this time. Patient and/or ca1 family updated on plan of care and expected duration. Pain level reassessed. Patient is alert, oriented x 3, equal unlabored respirations, skin warm/dry/pink. 22:34 Reassessment: Patient appears in no apparent distress at this time. Patient is alert, ca1 oriented x 3, equal unlabored respirations, skin warm/dry/pink. Vital Signs: 19:52 BP 131 / 98; Pulse 63; Resp 20; Temp 97.7(TE); Pulse Ox 100% on R/A; Weight 113.4 kg ca1 (R); Height 5 ft. 5 in. (165.10 cm) (R); Pain 0/10; 20:30 BP 129 / 91; Pulse 67; Resp 17 S; Pulse Ox 100% on R/A; ca1 21:15 BP 127 / 83; Pulse 69; Resp 15 S; Pulse Ox 100% on R/A; ca1 22:34 BP 136 / 84; Pulse 69; Resp 17 S; Pulse Ox 100% on R/A; ca1 19:52 Body Mass Index 41.60 (113.40 kg, 165.10 cm) ca1 ED Course: 19:47 Patient arrived in ED. ca1 19:48 Triage completed. ca1 19:52 Noel Restrepo MD is Attending Physician. gs 19:52 Arm band placed on right wrist. ca1 19:53 Patient has correct armband on for positive identification. Bed in low position. Call ca1 light in reach. Side rails up X2. Pulse ox on. NIBP on. Warm blanket given. 19:53 No provider procedures requiring assistance completed. ca1 20:15 Missed attempt(s): 22 gauge in left antecubital area. Bleeding controlled, band aid ca1 applied, catheter tip intact. 20:16 Delicia Raymundo, RN is Primary Nurse. ca1 20:27 Radiology exam delayed due to IV insertion attempt and/or patient not having kw appropriate IV at this time. 20:35 Inserted saline lock: 22 gauge in right antecubital area, using aseptic technique. ca1 Blood collected. 20:53 Radiology exam delayed due to patient is not appropriately dressed for the exam at this kw time. 21:38 XRAY Chest (1 view) In Process Unspecified. EDMS 22:39 IV discontinued, intact, bleeding controlled, No redness/swelling at site. Pressure ca1 dressing applied. Administered Medications: 20:34 Drug: NS 0.9% 1000 ml Route: IV; Rate: 1 bolus; Site: right antecubital; ca1 22:35 Follow up: Response: No adverse reaction; IV Status: Completed infusion ca1 Outcome: 22:34 Discharge ordered by . gs 22:39 Discharged to home via wheelchair, with family. ca1 22:39 Condition: stable 22:39 Discharge instructions given to patient, Instructed on discharge instructions, follow up and referral plans. Demonstrated understanding of instructions, follow-up care. 22:46 Patient left the ED. ca1 Signatures: Dispatcher [employer] EDMS Michelle, Radha kw Restrepo, Noel, MD MD gs Delicia Raymundo RN RN ca1
--- NOTE | 2018-12-12 22:34 | EDPHYS ---
Physician Documentation [facility] Name: Tabatha Chambers Age: 53 yrs Sex: Female : 1965 Arrival Date: 12/12/2018 Time: 19:47 Bed 7 Private MD: ED Physician Noel Restrepo HPI: 12/12 22:30 This 53 yrs old Female presents to ER via EMS with complaints of generally gs weak. 22:30 Onset: The symptoms/episode began/occurred 2 day(s) ago. Associated signs and symptoms: gs Pertinent positives: nausea, weakness, Pertinent negatives: altered mental status, fever. Severity of symptoms: At their worst the symptoms were moderate in the emergency department the symptoms are unchanged. Current symptoms:. The patient has experienced similar episodes in the past, several times. The patient has not recently seen a physician. EPIC SPECIALIST: 19:52 LMP N/A - Post-menopause ca1 Historical: - Allergies: 19:52 No Known Allergies; ca1 - Home Meds: 19:52 Alprazolam Oral [Active]; Bupropion Oral [Active]; Cymbalta Oral [Active]; Folic Acid ca1 Oral [Active]; Hydrochlorothiazide Oral [Active]; Invega Oral [Active]; Melatonin Oral [Active]; Propranolol Oral [Active]; ropinirole Oral [Active]; Suboxone [Active]; tizanidine Oral [Active]; Zolpidem Tartrate Oral [Active]; Seroquel Oral [Active]; - PMHx: 19:52 Anxiety; Bipolar disorder; Depression; Hypertension; Schizophrenia; ca1 - PSHx: 19:52 ankle left; Tubal ligation; ectopic ; Cholecystectomy; ca1 - Immunization history:: Adult Immunizations up to date. - Social history:: Smoking status: Patient/guardian denies using tobacco. - Ebola Screening: : Patient negative for fever greater than or equal to 101.5 degrees Fahrenheit, and additional compatible Ebola Virus Disease symptoms Patient denies exposure to infectious person Patient denies travel to an Ebola-affected area in the 21 days before illness onset No symptoms or risks identified at this time. ROS: 22:30 Respiratory: Positive for cough. gs 22:30 All other systems are negative. Exam: 22:30 Head/Face: Normocephalic, atraumatic. Eyes: Pupils equal round and reactive to light, gs extra-ocular motions intact. Lids and lashes normal. Conjunctiva and sclera are non-icteric and not injected. Cornea within normal limits. Periorbital areas with no swelling, redness, or edema. ENT: Nares patent. No nasal discharge, no septal abnormalities noted. Tympanic membranes are normal and external auditory canals are clear. Oropharynx with no redness, swelling, or masses, exudates, or evidence of obstruction, uvula midline. Mucous membranes moist. Neck: Trachea midline, no thyromegaly or masses palpated, and no cervical lymphadenopathy. Supple, full range of motion without nuchal rigidity, or vertebral point tenderness. No Meningismus. Chest/axilla: Normal chest wall appearance and motion. Nontender with no deformity. No lesions are appreciated. Cardiovascular: Regular rate and rhythm with a normal S1 and S2. No gallops, murmurs, or rubs. Normal PMI, no JVD. No pulse deficits. Respiratory: Lungs have equal breath sounds bilaterally, clear to auscultation and percussion. No rales, rhonchi or wheezes noted. No increased work of breathing, no retractions or nasal flaring. Abdomen/GI: Soft, non-tender, with normal bowel sounds. No distension or tympany. No guarding or rebound. No evidence of tenderness throughout. Back: No spinal tenderness. No costovertebral tenderness. Full range of motion. Skin: Warm, dry with normal turgor. Normal color with no rashes, no lesions, and no evidence of cellulitis. MS/ Extremity: Pulses equal, no cyanosis. Neurovascular intact. Full, normal range of motion. Neuro: Awake and alert, GCS 15, oriented to person, place, time, and situation. Cranial nerves II-XII grossly intact. Motor strength 5/5 in all extremities. Sensory grossly intact. Cerebellar exam normal. Normal gait. 22:30 Constitutional: The patient appears alert, awake. 22:30 ECG was reviewed by the Attending Physician. Vital Signs: 19:52 BP 131 / 98; Pulse 63; Resp 20; Temp 97.7(TE); Pulse Ox 100% on R/A; Weight 113.4 kg ca1 (R); Height 5 ft. 5 in. (165.10 cm) (R); Pain 0/10; 20:30 BP 129 / 91; Pulse 67; Resp 17 S; Pulse Ox 100% on R/A; ca1 21:15 BP 127 / 83; Pulse 69; Resp 15 S; Pulse Ox 100% on R/A; ca1 22:34 BP 136 / 84; Pulse 69; Resp 17 S; Pulse Ox 100% on R/A; ca1 19:52 Body Mass Index 41.60 (113.40 kg, 165.10 cm) ca1 MDM: 20:12 Patient medically screened. 22:30 Data reviewed: vital signs, nurses notes, lab test result(s), EKG, radiologic studies. gs Counseling: I had a detailed discussion with the patient and/or guardian regarding: the historical points, exam findings, and any diagnostic results supporting the discharge/admit diagnosis, the need for outpatient follow up. Response to treatment: the patient's condition has returned to base line, and as a result, I will discharge patient. 12/12 20:12 Order name: CBC with Diff; Complete Time: 22:34 12/12 20:12 Order name: PT-INR; Complete Time: 22:34 12/12 20:12 Order name: XRAY Chest (1 view); Complete Time: 22:34 12/12 20:12 Order name: EKG; Complete Time: 20:13 12/12 20:12 Order name: Cardiac monitoring; Complete Time: 20:34 12/12 20:12 Order name: Urine Microscopic Only; Complete Time: 22:34 12/12 21:05 Order name: Urine Dipstick--Ancillary (enter results); Complete Time: 22:34 mw2 12/12 22:19 Order name: Urine Culture EDNH 12/12 20:12 Order name: EKG - Nurse/Tech; Complete Time: 20:34 12/12 20:12 Order name: IV Saline Lock; Complete Time: 20:34 12/12 20:12 Order name: Labs collected and sent; Complete Time: 20:34 12/12 20:12 Order name: O2 Per Protocol; Complete Time: 20:34 12/12 20:12 Order name: O2 Sat Monitoring; Complete Time: 20:34 12/12 20:12 Order name: Urine Test (obtain specimen); Complete Time: 21:35 12/12 20:12 Order name: Urine Dipstick-Ancillary (obtain specimen); Complete Time: 21:35 gs EC:30 Rate is 62 beats/min. Rhythm is regular. [place] interval is normal. QRS interval is normal. gs T waves are Normal. No ST changes noted. Clinical impression: Normal ECG. Interpreted by me. Administered Medications: 20:34 Drug: NS 0.9% 1000 ml Route: IV; Rate: 1 bolus; Site: right antecubital; ca1 22:35 Follow up: Response: No adverse reaction; IV Status: Completed infusion ca1 Disposition: 12/12/18 22:34 Discharged to Home. Impression: Weakness. - Condition is Stable. - Discharge Instructions: Weakness, Fatigue. - Medication Reconciliation Form, Thank You Letter, Antibiotic Education, Prescription Opioid Use form. - Follow up: Private Physician; When: 2 - 3 days; Reason: Re-evaluation by your physician. Signatures: Dispatcher [employer] EDMS Noel Restrepo MD MD Delicia Raymundo RN RN ca1 Corrections: (The following items were deleted from the chart) 22:46 22:34 12/12/2018 22:34 Discharged to Home. Impression: Weakness. Condition is Stable. ca1 Forms are Medication Reconciliation Form, Thank You Letter, Antibiotic Education, Prescription Opioid Use. Follow up: Private Physician; When: 2 - 3 days; Reason: Re-evaluation by your physician.
[2018-12-12 23:26] VITALS: TEMP 97.7; O2SAT 100
[2018-12-12 23:30] VITALS: BP 136/84
--- NOTE | 2018-12-13 06:11 | EKG ---
Test Date: 2018-12-12 Test Time: 20:36:34 Job Placement Specialist: HIMANSHU MEASUREMENT RESULTS: Intervals: Rate: 62 HI: 192 QRSD: 78 QT: 406 QTc: 412 Mcqueeney: P: 57 HI: 192 QRS: 11 T: 23 INTERPRETIVE STATEMENTS: Normal sinus rhythm Normal ECG Compared to ECG 11/15/2018 12:57:32 No significant changes Electronically Signed On 12-13-18 06:10:57 CDT by Mesfin Sanchez
== END 2018-12-12 22:46 | disposition home or self-care (01) ==
LOC: ER 19:41
DX: R53.1 Weakness (principal); I10 Essential (primary) hypertension; F41.9 Anxiety disorder, unspecified; F32.9 Major depressive disorder, single episode, unspecified
CPT/HCPCS: 96361; 93005; 87088; 85025; 87086; 36415; 85610; 71045; 96360; 99284; J7030; 81003; 81015

== ENCOUNTER 2019-07-04 00:24 | Observation (INO) | payer OTHER ==
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
--- OUTSIDE RECORDS SUMMARY | 2019-07-04 00:26 | XMS REPORT ---
:1965 Author Organization [facility] t Address [address] [place] [address] [address] [place] [address] Care Team Providers Name Role Phone Unavailable Unavailable Unavailable Problems This patient has no known problems. Allergies, Adverse Reactions, Alerts This patient has no known allergies or adverse reactions. Medications This patient has no known medications.
--- OUTSIDE RECORDS SUMMARY | 2019-07-04 00:27 | XMS REPORT ---
:1965 Author Name Admin, [place] Address Unavailable Unavailable , PROBLEMS Condition Status [...] EPISANXIE TY DISORDER, UNSPE CIFIED [facility] Contact Center Ambulatory [facility] UNK - Encounter [facility] Contact Center VITAL SIGNS No Information Available [...] divorce. Five kids N ot homeless. City: [place] . lives with daughter Liliya recinos education [...] Name Diagnostic evaluation with theodore morrison - 38569 HISTORY OF PROCEDURES Procedure Date Procedure Name Provider Procedure Notes Status Diagnostic evaluation with Deloris Escobar [facility] - 92047 GOALS No Information Available HEALTH CONCERNS No Information Available
[2019-07-04] MEDS ORDERED: NA CHLORIDE 0.9% 1,000 ML ONE (00:48)
[2019-07-04] MEDS ORDERED: LEVETIRACETAM 500 MG/5 ML VIAL IV ONE (00:48)
[2019-07-04] MEDS ORDERED: NA CHLORIDE 0.9% 250 ML ONE (00:48)
[2019-07-04 01:05] LABS: Absolute Lymphocytes (CBC) 1.4 K/uL (0.7-4.9); Basophils % 0.5 % (0-1.3); Lymphocytes % 7.3 % (15.3-44.8); MPV 8.5 fL (7.6-11.3); RBC Red Blood Cell Count 4.51 M/uL (3.86-4.86)
[2019-07-04 01:06] LABS: Protime INR 1.11
[2019-07-04 01:31] LABS: Blood Morphology Comment NOT SEEN (NOT SEEN); Platelet Estimate ADEQ
[2019-07-04 01:39] LABS: ALT/SGPT 31 U/L (12-78); AST/SGOT 18 U/L (15-37); Alkaline Phosphatase 104 U/L (45-117); BUN Blood Urea Nitrogen 35 mg/dL (7-18); Bicarbonate 17 mmol/L (21-32); Bilirubin Direct 0.1 mg/dL (0-0.2); Bilirubin Total 0.4 mg/dL (0.2-1.0); Glucose Level 195 mg/dL (74-106); Potassium 4.1 mmol/L (3.5-5.1); Protein, Total 8.8 g/dL (6.4-8.2); Sodium Level 135 mmol/L (136-145)
[2019-07-04] MEDS ORDERED: ONDANSETRON 4 MG/2 ML VIAL ONE (01:39)
--- NOTE | 2019-07-04 02:15 | EDPHYS ---
Physician Documentation [facility] Name: Tabatha Chambers Age: 53 yrs Sex: Female : 1965 Arrival Date: 07/04/2019 Time: 00:25 Bed 4 Private MD: ED Physician Christophe Mayer HPI: 07/03 00:28 This 53 yrs old Female presents to ER via Unassigned with complaints of edwardo seizure x 2 today, no history. 00:28 The patient presents with a history of multiple seizures, a total of 2. Character of edwardo seizure(s): Loss of consciousness: Motor activity: generalized, Incontinence: incontinent of bladder, Apnea: the patient did not experience apnea, Circulation: the patient did not experience evidence of pulse disturbance. Seizure onset: just prior to arrival. Context: the seizure(s) was witnessed, by family. Seizure Hx: the patient has no previous seizure history. Associated injury: The patient did not suffer any apparent associated injury. EMS care: none. The patient has not experienced similar symptoms in the past. 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 - Social history:: Smoking status: unknown Patient/guardian denies using alcohol, street drugs. - Family history:: not pertinent. ROS: 00:28 Constitutional: Negative for fever, chills, and weight loss, Eyes: Negative for injury, edwardo pain, redness, and discharge, ENT: Negative for injury, pain, and discharge, Neck: Negative for injury, pain, and swelling, Cardiovascular: Negative for chest pain, palpitations, and edema, Respiratory: Negative for shortness of breath, cough, wheezing, and pleuritic chest pain, Abdomen/GI: Negative for abdominal pain, nausea, vomiting, diarrhea, and constipation, Back: Negative for injury and pain, : Negative for injury, bleeding, discharge, and swelling, MS/Extremity: Negative for injury and deformity, Skin: Negative for injury, rash, and discoloration, Psych: Negative for depression, anxiety, suicide ideation, homicidal ideation, and hallucinations, Allergy/Immunology: Negative for hives, rash, and allergies, Endocrine: Negative for neck swelling, polydipsia, polyuria, polyphagia, and marked weight changes, Hematologic/Lymphatic: Negative for swollen nodes, abnormal bleeding, and unusual bruising. 00:28 Neuro: Positive for altered mental status, seizure activity. Exam: 00:28 Constitutional: This is a well developed, well nourished patient who is awake, alert, edwardo and in no acute distress. Head/Face: Normocephalic, atraumatic. Eyes: Pupils equal round and reactive to light, extra-ocular motions intact. Lids and lashes normal. Conjunctiva and sclera are non-icteric and not injected. Cornea within normal limits. Periorbital areas with no swelling, redness, or edema. ENT: Nares patent. No nasal discharge, no septal abnormalities noted. Tympanic membranes are normal and external auditory canals are clear. Oropharynx with no redness, swelling, or masses, exudates, or evidence of obstruction, uvula midline. Mucous membranes moist. Neck: Trachea midline, no thyromegaly or masses palpated, and no cervical lymphadenopathy. Supple, full range of motion without nuchal rigidity, or vertebral point tenderness. No Meningismus. Chest/axilla: Normal chest wall appearance and motion. Nontender with no deformity. No lesions are appreciated. Cardiovascular: Regular rate and rhythm with a normal S1 and S2. No gallops, murmurs, or rubs. Normal PMI, no JVD. No pulse deficits. Respiratory: Lungs have equal breath sounds bilaterally, clear to auscultation and percussion. No rales, rhonchi or wheezes noted. No increased work of breathing, no retractions or nasal flaring. Abdomen/GI: Soft, non-tender, with normal bowel sounds. No distension or tympany. No guarding or rebound. No evidence of tenderness throughout. Back: No spinal tenderness. No costovertebral tenderness. Full range of motion. Female : Normal external genitalia. Skin: Warm, dry with normal turgor. Normal color with no rashes, no lesions, and no evidence of cellulitis. MS/ Extremity: Pulses equal, no cyanosis. Neurovascular intact. Full, normal range of motion. Neuro: Awake and alert, GCS 15, oriented to person, place, time, and situation. Cranial nerves II-XII grossly intact. Motor strength 5/5 in all extremities. Sensory grossly intact. Cerebellar exam normal. Normal gait. Psych: Awake, alert, with orientation to person, place and time. Behavior, mood, and affect are within normal limits. 01:31 ECG was reviewed by the Attending Physician. edwardo 02:05 Neck: External neck: is normal, ROM/movement: is normal, no acute changes, Meningeal edwardo signs: are not present, Kernig's sign is negative, Brudzinski's sign is negative. 02:08 Neuro: Orientation: is normal, appropriate for stated age, no acute changes, Mentation: edwardo is normal, appropriate for stated age, no acute changes, Memory: is normal, appropriate for stated age, no acute changes, Cranial nerves: grossly normal, is grossly normal based on the patient's age, no acute changes, Cerebellar function: is grossly normal, is grossly normal based on the patient's age, no acute changes, Motor: is normal, is grossly normal based on the patient's age, no acute changes, moves all fours, Sensation: is normal, Gait: not tested. Babinski testing is normal, seizure activity, is not displayed by the patient. Vital Signs: 00:25 BP 148 / 96; Pulse 110; Resp 15; Temp 98.4; Pulse Ox 100% ; Weight 113.4 kg; Height 5 rr5 ft. 5 in. (165.10 cm); Pain 0/10; 01:07 BP 139 / 68; Pulse 74; Resp 19; Pulse Ox 100% ; rr5 02:00 BP 121 / 72; Pulse 108; Resp 16; Temp 98.3; Pulse Ox 99% ; rr5 03:00 BP 105 / 70; Pulse 110; Resp 17; Pulse Ox 100% on R/A; rr5 04:00 BP 98 / 55; Pulse 106; Resp 16; Pulse Ox 98% ; rr5 04:19 BP 106 / 95; Pulse 95; Resp 18; Temp 98.4; Pulse Ox 98% ; rr5 00:25 Body Mass Index 41.60 (113.40 kg, 165.10 cm) rr5 Genia Coma Score: 00:25 Eye Response: spontaneous(4). Verbal Response: oriented(5). Motor Response: obeys rr5 commands(6). Total: 15. MDM: 00:26 Patient medically screened. [facility] 00:31 Data reviewed: vital signs, nurses notes, lab test result(s), EKG, radiologic studies, [facility] CT scan. 00:32 Differential diagnosis: cerebral vascular accident, drug overdose, seizure. Data [facility] interpreted: monitor and storage bin tender: rate is 80 beats/min, rhythm is normal sinus rhythm, Pulse oximetry: on room air is 100 %. 02:09 Physician consultation: Chalino Hernandez MD was called at 02:15, regarding admission, to [facility] the telemetry unit. consult, patient's condition, and will see patient in hospital. later today, dr crum notified, dr hernandez consulted, agrees with the plan, no changes, keppra to continue, no spinal tap needed. 07/03 00:27 Order name: Acetaminophen; Complete Time: 02:00 [facility] 07/03 00:27 Order name: Basic Metabolic Panel; Complete Time: 02:00 [facility] 07/03 00:27 Order name: CBC with Diff; Complete Time: 02:00 [facility] 07/03 00:27 Order name: ETOH Level; Complete Time: 02:00 [facility] 07/03 00:27 Order name: Hepatic Function; Complete Time: 02:00 [facility] 07/03 00:27 Order name: PT-INR; Complete Time: 02:00 [facility] 07/03 00:27 Order name: Ptt, Activated; Complete Time: 02:00 [facility] 07/03 00:27 Order name: Salicylate; Complete Time: 02:00 [facility] 07/03 00:27 Order name: Urine Drug Screen [facility] 07/03 00:27 Order name: CT Head Brain wo Cont [facility] 07/03 01:06 Order name: Manual Differential; Complete Time: 02:00 EDMS 07/03 03:01 Order name: Urine Dipstick--Ancillary (enter results) [facility] 07/03 03:02 Order name: Urine --Ancillary (enter results) 4 07/03 00:27 Order name: Urine Test (obtain specimen); Complete Time: 03:00 [facility] 07/03 00:27 Order name: EKG; Complete Time: 00:28 [facility] 07/03 00:27 Order name: EKG - Nurse/Tech; Complete Time: 01:04 [facility] 07/03 00:27 Order name: IV Saline Lock; Complete Time: 00:38 [facility] 07/03 00:27 Order name: Labs collected and sent; Complete Time: 00:38 [facility] 07/03 00:27 Order name: Urine Dipstick-Ancillary (obtain specimen); Complete Time: 00: [facility] 07/03 00:27 Order name: Seizure Precautions; Complete Time: 00: [facility] EC:31 Rate is 82 beats/min. Rhythm is regular. QRS [place] is Normal. RI interval is normal. QRS edwardo interval is normal. QT interval is normal. No Q waves. T waves are Normal. No ST changes noted. Clinical impression: Normal ECG. Interpreted by me. Reviewed by me. Administered Medications: 01:00 Drug: NS 0.9% 1000 ml Route: IV; Rate: 1 bolus; Site: left antecubital; rr5 03:57 Follow up: IV Status: Completed infusion; IV Intake: 1000ml rr5 01:00 Drug: Keppra 1000 mg Route: IV; Rate: per protocol; Site: left antecubital; rr5 01:40 Follow up: Response: No adverse reaction; IV Status: Completed infusion; IV Intake: rr5 250ml 02:05 Drug: Zofran (Ondansetron) 4 mg Route: IVP; Site: left antecubital; rr5 03:00 Follow up: Response: No adverse reaction; Marked relief of symptoms rr5 Disposition: 07/04/19 02:14 Hospitalization ordered by Gavin Crum for Inpatient Admission. Preliminary diagnosis are Epileptic seizures related to external causes, Elevated white blood cell count, Unspecified kidney failure. - Bed requested for Telemetry/MedSurg (Inpatient). - Status is Inpatient Admission. rr5 - Condition is Fair. - Problem is new. - Symptoms have improved. Signatures: Dispatcher [employer] EDMS Sue Bryson RN RN Christophe Shell MD MD cha Roque, Raymond RN RN rr5 Corrections: (The following items were deleted from the chart) 04:07 02:14 Hospitalization Ordered by Gavin Crum for Inpatient Admission. Preliminary diagnosis is Epileptic seizures related to external causes; Elevated white blood cell count; Unspecified kidney failure. Bed requested for Telemetry/MedSurg (Inpatient). Status is Inpatient Admission. Condition is Fair. Problem is new. Symptoms have improved. [facility] 05:02 04:07 07/04/2019 02:14 Hospitalization Ordered by Gavin Crum for Inpatient rr5 Admission. Preliminary diagnosis is Epileptic seizures related to external causes; Elevated white blood cell count; Unspecified kidney failure. Bed requested for Telemetry/MedSurg (Inpatient). Status is Inpatient Admission. Condition is Fair. Problem is new. Symptoms have improved. mw
--- NOTE | 2019-07-04 02:15 | ER ---
Nurse's Notes [facility] Name: Tabatha Amanda Age: 53 yrs Sex: Female : 1965 Arrival Date: 07/04/2019 Time: 00:25 Bed 4 Private MD: Diagnosis: Epileptic seizures related to external causes;Elevated white blood cell count;Unspecified kidney failure Presentation: 07/03 00:25 Chief complaint: EMS states: patient had 2 episodes of seizures lasted 20 seconds rr5 started from hand twitching then goes to generalized seizure stated by her daughter. she was on post ictal stage for 20 minutes. 00:25 Coronavirus screen: Proceed with normal triage. Ebola Screen: Patient negative for rr5 fever greater than or equal to 101.5 degrees Fahrenheit, and additional compatible Ebola Virus Disease symptoms Patient denies exposure to infectious person. Patient denies travel to an Ebola-affected area in the 21 days before illness onset. Initial Sepsis Screen: Does the patient meet any 2 criteria? No. Patient's initial sepsis screen is negative. Does the patient have a suspected source of infection? No. Patient's initial sepsis screen is negative. Risk Assessment: Do you want to hurt yourself or someone else? Patient reports no desire to harm self or others. Note patient is on methadone rehabilitation then she stopped the saboxone a week ago. Onset of symptoms was July 04, 2019. 00:25 Method Of Arrival: EMS: [facility] rr5 00:25 Acuity: VERO 3 rr5 00:25 Note CBG from EMS 202 mg/Dl. joseph amanda (daughter) [phone]. rr5 SHOW HOST: 00:25 LMP 05/07/2019 rr5 Historical: - Allergies: 00:25 No Known Allergies; rr5 - PMHx: 00:25 Anxiety; Bipolar disorder; Depression; Hypertension; Schizophrenia; rr5 - PSHx: 00:25 Cholecystectomy; rr5 - Immunization history:: Adult Immunizations up to date. - Social history:: Smoking status: unknown Patient/guardian denies using alcohol, street drugs. - Family history:: not pertinent. Screenin:39 Abuse screen: Denies threats or abuse. Denies injuries from another. Nutritional rr5 screening: No deficits noted. Tuberculosis screening: No symptoms or risk factors identified. Fall Risk Secondary diagnosis (15 points) seizures, IV access (20 points). Total Kim Fall Scale indicates Low Risk Score (25-44 pts). Fall prevention measures have been instituted. Side Rails Up X 2 Placed close to Nursing Station Frequent Obs/Assesments occuring As available Patient and Family Educated on Fall Prevention Program and strategies. Assessment: 00:25 General: Appears in no apparent distress. comfortable, Behavior is calm, cooperative, rr5 drowsy. Pain: Denies pain. Neuro: Level of Consciousness is awake, alert, obeys commands, Oriented to person, place, time, situation. Cardiovascular: Capillary refill < 3 seconds Patient's skin is warm and dry. Respiratory: Airway is patent Respiratory effort is even, unlabored, Respiratory pattern is regular, symmetrical. GI: Abdomen is non-distended, obese. : No signs and/or symptoms were reported regarding the genitourinary system. EENT: No signs and/or symptoms were reported regarding the EENT system. Derm: Skin is intact, is healthy with good turgor, Skin temperature is warm. Musculoskeletal: Circulation, motion, and sensation intact. Capillary refill < 3 seconds. 01:00 Reassessment: Patient appears in no apparent distress at this time. back from CT scan. rr5 01:50 Reassessment: Patient appears in no apparent distress at this time. patient vomited rr5 previously ingested food. placed on high rodriguez's position. gown and bed linen changed. ED provider informed with order made and carried out. 02:45 Reassessment: Patient appears in no apparent distress at this time. Patient is alert, rr5 oriented x 3, equal unlabored respirations, skin warm/dry/pink. for admission awaiting for room number. 03:35 Reassessment: Patient appears in no apparent distress at this time. No changes from rr5 previously documented assessment. resting eyes closed, breathing spontaneously at room air. 04:45 Reassessment: Patient appears in no apparent distress at this time. Patient is alert, rr5 oriented x 3, equal unlabored respirations, skin warm/dry/pink. transferred to room 210 awake alert, breathing spontaneously at room air. no complaints made. Patient states symptoms have improved. 05:00 Reassessment: Joseph daughter [phone] updated patient is for admission. rr5 Vital Signs: 00:25 BP 148 / 96; Pulse 110; Resp 15; Temp 98.4; Pulse Ox 100% ; Weight 113.4 kg; Height 5 rr5 ft. 5 in. (165.10 cm); Pain 0/10; 01:07 BP 139 / 68; Pulse 74; Resp 19; Pulse Ox 100% ; rr5 02:00 BP 121 / 72; Pulse 108; Resp 16; Temp 98.3; Pulse Ox 99% ; rr5 03:00 BP 105 / 70; Pulse 110; Resp 17; Pulse Ox 100% on R/A; rr5 04:00 BP 98 / 55; Pulse 106; Resp 16; Pulse Ox 98% ; rr5 04:19 BP 106 / 95; Pulse 95; Resp 18; Temp 98.4; Pulse Ox 98% ; rr5 00:25 Body Mass Index 41.60 (113.40 kg, 165.10 cm) rr5 [place] Coma Score: 00:25 Eye Response: spontaneous(4). Verbal Response: oriented(5). Motor Response: obeys rr5 commands(6). Total: 15. ED Course: 00:25 Patient arrived in ED. ds1 00:25 Christophe Mayer MD is Attending Physician. edwardo 00:25 Patient has correct armband on for positive identification. Placed in gown. Bed in low rr5 position. Call light in reach. Side rails up X2. Seizure precautions initiated. 00:25 shelter monitor on. Pulse ox on. NIBP on. rr5 00:25 Maintain EMS IV. Dressing intact. Good blood return noted. Site clean \T\ dry. Gauge \T\ rr 5 site: G20 left AC. 00:25 EKG done, by ED staff, reviewed by Christophe Mayer MD. rr5 00:28 Boone Ledesma, RN is Primary Nurse. rr5 00:35 Triage completed. rr5 00:37 Arm band placed on right wrist. rr5 00:58 CT Head Brain wo Cont In Process Unspecified. EDMS 01:13 No provider procedures requiring assistance completed. rr5 02:13 Gavin Crum is Hospitalizing Provider. edwardo 02:45 Straight cath inserted, using sterile technique, 16 Fr. Specimen obtained. Returned ds4 clear yellow urine. Patient tolerated well. 03:00 Urine Drug Screen Sent. ds4 04:16 Patient admitted, IV remains in place. intact, No redness/swelling at site. rr5 Administered Medications: 01:00 Drug: NS 0.9% 1000 ml Route: IV; Rate: 1 bolus; Site: left antecubital; rr5 03:57 Follow up: IV Status: Completed infusion; IV Intake: 1000ml rr5 01:00 Drug: Keppra 1000 mg Route: IV; Rate: per protocol; Site: left antecubital; rr5 01:40 Follow up: Response: No adverse reaction; IV Status: Completed infusion; IV Intake: rr5 250ml 02:05 Drug: Zofran (Ondansetron) 4 mg Route: IVP; Site: left antecubital; rr5 03:00 Follow up: Response: No adverse reaction; Marked relief of symptoms rr5 Intake: 01:40 IV: 250ml; Total: 250ml. rr5 03:57 IV: 1000ml; Total: 1250ml. rr5 Outcome: 02:14 Decision to Hospitalize by Provider. edwardo 04:16 Condition: stable rr5 04:16 Instructed on the need for admit. 04:40 Admitted to Med/surg accompanied by karla, via stretcher, room 210, with chart, Report rr5 called to precious 05:02 Patient left the ED. rr5 Signatures: Dispatcher [employer] EDMS Christophe Mayer MD MD cha Sanford, Demi ds1 Frantz Ewing ds4 Boone Ledesma, RN RN rr5 Corrections: (The following items were deleted from the chart) 03:57 02:30 IV Status: Completed infusion rr5 rr5
--- NOTE | 2019-07-04 03:38 | P.HP ---
Certification for Inpatient Patient admitted to: Inpatient With expected LOS: >2 Midnights Practitioner: I am a practitioner with admitting privileges, knowledge of patient current condition, hospital course, and medical plan of care. Services: Services provided to patient in accordance with Admission requirements found in Title 42 Section 412.3 of the Code of Federal Regulations Patient History Date of Service: 07/04/19 Reason for admission: Seizures History of Present Illness: 53-year-old woman with a history of bipolar disorder and essential tremors was brought to the emergency department due to a seizure episode. Patient is reported to have a to seizure episodes described as generalized tonic-clonic with associated post ictal state. No urine or stool incontinence, no tongue biting. There is no report of fever or cough or shortness of breath preceding the seizures. CT head done in the ED showed no acute abnormality, EKG is unremarkable, patient has leukocytosis and tachycardia and meet criteria for sepsis. UA is pending. Patient is admitted for further management. Allergies No Known Drug Allergies Allergy (Verified 08/06/18 03:49) Unknown - Past Medical/Surgical History Diabetic: No -: schyzophrenia -: bipolar -: tubal ligation -: left ankle -: ectopic - Family History Mother -: Hypertension, Diabetes, Stroke - Social History Alcohol use: No CD- Drugs: No Caffeine use: No Review of Systems is unable to be obtained (Due to postictal state.) Physical Examination - Physical Exam General: Oriented x2, Confused HEENT: Atraumatic, PERRLA, Mucous membr. moist/pink, EOMI Neck: Supple, JVD not distended Respiratory: Clear to auscultation bilaterally, Normal air movement Cardiovascular: No edema, Regular rate/rhythm, Normal S1 S2 Capillary refill: <2 Seconds Gastrointestinal: Normal bowel sounds, Soft and benign, Non-distended, No tenderness Musculoskeletal: No swelling, No erythema Integumentary: No rashes, No erythema Neurological: Cranial nerves 3-12 intact, Other (Nonfocal) - Studies Laboratory Data (last 24 hrs) 07/04/19 00:40: PT 13.1 H, INR 1.11, APTT 33.4 07/04/19 00:40: WBC 19.4 H, Hgb 12.2, Hct 38.0, Plt Count 358 07/04/19 00:40: Sodium 135 L, Potassium 4.1, BUN 35 H, Creatinine 1.45 H, Glucose 195 H, Total Bilirubin 0.4, AST 18, ALT 31, Alkaline Phosphatase 104 Assessment and Plan - Problems (Diagnosis) (1) Seizures Current Visit: Yes Status: Acute (2) Sepsis Current Visit: Yes Status: Acute (3) Bipolar disorder Current Visit: Yes Status: Acute (4) Obesity Current Visit: No Status: Acute Qualifiers: Obesity type: unspecified obesity type Obesity classification: unspecified obesity classification Serious obesity comorbidity presence: unspecified whether serious comorbidity present Qualified Code(s): E66.9 - Obesity, unspecified (5) Essential tremor Current Visit: Yes Status: Acute (6) Chronic kidney disease, stage 3 Current Visit: Yes Status: Acute - Plan Admit to the medical floor Patient given a loading dose IV Keppra in the ED. Continue with Keppra IV 500 mg b.i.d. Consult to neurology. Continue home medications for essential tremors Follow UA. Obtain blood cultures, chest x-ray. Empiric IV Rocephin. Continue home medications for bipolar disorder. - Advance Directives Does patient have a Living Will: No Does patient have a Durable POA for Healthcare: No
[2019-07-04 03:55] LABS: Urine Blood NEGATIVE (NEG); Urine Glucose NEGATIVE (NEG); Urine Protein TRACE (NEG)
[2019-07-04 04:11] LABS: Barbiturates NEGATIVE (NEGATIVE); Benzodiazepines POSITIVE (NEGATIVE); Cocaine NEGATIVE (NEGATIVE); METHAMPHETAM NEGATIVE (NEGATIVE); Methadone NEGATIVE (NEGATIVE); Opiates NEGATIVE (NEGATIVE); Phencyclidine NEGATIVE (NEGATIVE); THC Cannibis NEGATIVE (NEGATIVE)
[2019-07-04 05:22] VITALS: BMI 43.6
[2019-07-04] MEDS ORDERED: ACETAMINOPHEN 500 MG TAB PO PRN (05:26)
[2019-07-04] MEDS ORDERED: ONDANSETRON 4 MG/2 ML VIAL IV PRN (05:26)
[2019-07-04] MEDS: CEFTRIAXONE/SWI 1gm 1 GM/10 ML SYR IV SCH (06:12)
[2019-07-04] MEDS: NA CHLORIDE 0.9% 1,000 ML IV SCH ×3 (06:12→20:08)
--- NOTE | 2019-07-04 07:50 | P.PN ---
Date of Service: 07/04/19 Patient is awake and alert. She has no recollection of how she ended up in the hospital. She currently denies any complain. With change IV Keppra to oral Keppra. EEG ordered. Neurology consult is pending
--- NOTE | 2019-07-04 07:56 | P.DS ---
Admission Date: 07/04/19 Discharge Date: 07/05/19 Disposition: ROUTINE DISCHARGE Discharge Condition: FAIR Reason for Admission: Seizures - Problems (1) Seizures Current Visit: Yes Status: Acute (2) Sepsis Current Visit: Yes Status: Acute (3) Bipolar disorder Current Visit: Yes Status: Acute (4) Obesity Current Visit: No Status: Acute Qualifiers: Obesity type: unspecified obesity type Obesity classification: unspecified obesity classification Serious obesity comorbidity presence: unspecified whether serious comorbidity present Qualified Code(s): E66.9 - Obesity, unspecified (5) Essential tremor Current Visit: Yes Status: Acute (6) Chronic kidney disease, stage 3 Current Visit: Yes Status: Acute (7) Pneumonia Current Visit: Yes Status: Acute Brief History of Present Illness: 53-year-old woman with a history of bipolar disorder and essential tremors was brought to the emergency department due to a seizure episode. Patient is reported to have a to seizure episodes described as generalized tonic-clonic with associated post ictal state. No urine or stool incontinence, no tongue biting. There is no report of fever or cough or shortness of breath preceding the seizures. CT head done in the ED showed no acute abnormality, EKG is unremarkable, patient has leukocytosis and tachycardia and meet criteria for sepsis. UA showed no evidence of UTI. Patient was admitted for further management. Hospital Course: Patient admitted to the medical floor. She received a loading dose of IV Keppra. Patient mental status improved, became alert and oriented. She had no recollection of the event or how she ended up being hospitalized. Patient was placed on Keppra 500 mg bid. Patient was evaluated by Dr. Pollack-Neurology. Dr. Pollack recommended to continue Keppra and follow up with him in his office in 1 month. She met criteria for sepsis. Chest x-ray demonstrated probable left lobe pneumonia. Patient was treated with IV Rocephin, leukocytosis resolved, she was afebrile during the hospital stay. She is prescribed Augmentin to continue treatment for pneumonia. Vitals have been stable, patient currently has no complain and she is asymptomatic. She is deemed clinically stable for discharge. She will follow up with Dr. Pollack as above. Vital Signs/Physical Exam: Temp Pulse Resp BP Pulse Ox 98.4 F 95 H 18 115/67 97 07/04/19 05:14 07/04/19 05:14 07/04/19 05:14 07/04/19 05:14 07/04/19 05:14 General: Alert, In no apparent distress, Oriented x3 HEENT: Mucous membr. moist/pink Neck: Supple Respiratory: Clear to auscultation bilaterally, Normal air movement Cardiovascular: No edema, Regular rate/rhythm, Normal S1 S2 Gastrointestinal: Normal bowel sounds, Soft and benign, No tenderness Musculoskeletal: No swelling Integumentary: No rashes Neurological: Normal strength at 5/5 x4 extr Laboratory Data at Discharge: WBC 19.4 K/uL (4.3-10.9) H 07/04/19 00:40 Hgb 12.2 g/dL (12.0-15.0) 07/04/19 00:40 Hct 38.0 % (36.0-45.0) 07/04/19 00:40 Plt Count 358 K/uL (152-406) 07/04/19 00:40 PT 13.1 SECONDS (9.5-12.5) H 07/04/19 00:40 INR 1.11 07/04/19 00:40 APTT 33.4 SECONDS (24.3-36.9) 07/04/19 00:40 Sodium 135 mmol/L (136-145) L 07/04/19 00:40 Potassium 4.1 mmol/L (3.5-5.1) 07/04/19 00:40 BUN 35 mg/dL (7-18) H 07/04/19 00:40 Creatinine 1.45 mg/dL (0.55-1.3) H 07/04/19 00:40 Glucose 195 mg/dL (74-106) H 07/04/19 00:40 Total Bilirubin 0.4 mg/dL (0.2-1.0) 07/04/19 00:40 AST 18 U/L (15-37) 07/04/19 00:40 ALT 31 U/L (12-78) 07/04/19 00:40 Alkaline Phosphatase 104 U/L (45-117) 07/04/19 00:40 Home Medications: Aspirin [Aspirin EC 81 MG] 81 mg DAILY 07/04/19 Atorvastatin Calcium 20 tab DAILY 07/04/19 Buprenorphine HCl/Naloxone HCl [Suboxone 2 mg-0.5 mg Sl Film] 2 film SL TID 0 07/04/19 Cetirizine HCl [Allergy Relief] 10 mg PO DAILY 07/04/19 Cyanocobalamin (Vitamin B-12) [Vitamin B12] 2,500 mcg DAILY 07/04/19 Folic Acid 1 mg PO DAILY 07/04/19 Melatonin 10 mg PO BEDTIME 07/04/19 Pantoprazole Sodium 40 tab DAILY WITH BREAKFAST 07/04/19 Propranolol [Inderal*] 10 mg PO TID 07/04/19 Quetiapine Fumarate [Seroquel] 100 tab BEDTIME 07/04/19 Ropinirole HCl 2 tab BID 07/04/19 Tizanidine [Zanaflex*] 4 tab BIDPC 07/04/19 lisinopriL [Lisinopril] 20 tab DAILY 07/04/19 Amox/Clavulanate [Augmentin 875-125 Tab] 1 each PO BID #12 tab 07/05/19 levETIRAcetam [Keppra*] 500 mg PO BID #60 tab 07/05/19 New Medications: Amox/Clavulanate [Augmentin 875-125 Tab] 1 each PO BID #12 tab levETIRAcetam [Keppra*] 500 mg PO BID #60 tab Patient Discharge Instructions: No driving until followup with Dr. Pollack. Diet: AHA Activity: Seizure precautions. Followup: Chalino Pollack MD [ASSOCIATE-ACTIVE - CAN ADMIT] - (Within 1 month) Time spent managing pt's care (in minutes): 38
--- NOTE | 2019-07-04 08:13 | RAD REPORT ---
EXAM DESCRIPTION: RAD - Chest Single View - 07/04/2019 5:48 am CLINICAL HISTORY: Sepsis COMPARISON: December 2018 TECHNIQUE: AP portable chest image was obtained 07/04/2019 5:48 am . FINDINGS: Lung volumes are low. Patchy opacification in the lower left lung field is present new fro m comparison. Finding is suspicious for early left lower lobe pneumonia. Central vasculature and lung markings are mildly prominent. Heart size is normal. No measurable pleural effusion and no pneumotho rax. No acute bony abnormality seen. No acute aortic findings suspected. IMPRESSION: Probable left lower lobe pneumonia.
[2019-07-04] MEDS: levETIRAcetam 500 MG TAB PO SCH ×2 (08:20→20:08)
[2019-07-04] MEDS: ENOXAPARIN 40 MG/0.4 ML SQ SCH (08:20)
[2019-07-04] MEDS ORDERED: CEFTRIAXONE 1 GM/NS 50 ML 1 GM/50 ML BAG IV SCH (09:00)
[2019-07-04] MEDS ORDERED: levETIRAcetam 500 MG in NA CHLORIDE 0.9% 100 ML IV SCH ×2 (09:00→10:00)
--- NOTE | 2019-07-04 12:17 | P.PN ---
Date of Service: 07/04/19 Patient admitted for seizure activity, awaiting neurological evaluation. Noted without metabolic acidosis as well as elevated creatinine. An marked leukocytosis. On empirical antibiotics, follow up in the urinalysis. Will consult Nephrology for follow-up. Might need add sodium bicarb if repeat stat BMP now stay show serum bicarb less than 21. Possible seizure induced lactic acidosis considered
--- NOTE | 2019-07-04 12:47 | RAD REPORT ---
EXAM DESCRIPTION: CT - Head Brain Wo Cont - 07/04/2019 6:32 am CLINICAL HISTORY: SEIZURE COMPARISON: 08/05/2018 TECHNIQUE: Axial CT of the head obtained from the skull apex to the skull base without contrast. FINDINGS: No acute intracranial hemorrhage identified. No mass, mass effect, shift of the midline, a bnormal extra-axial fluid collection or CT evidence of acute ischemic change identified. The ventricu lar system is unremarkable. No acute abnormalities of the supratentorial white matter, basal gangli a, cerebellum, or brainstem. The visualized paranasal sinuses and the mastoids are relatively well aerated. No skull fracture id entified. Visualized orbits and globes are unremarkable. IMPRESSION: 1. No acute intracranial abnormality identified. This exam was performed according to our departmental dose-optimization program, which includes autom ated exposure control, adjustment of the mA and/or kV according to patient size and/or use of iterati ve reconstruction technique. Electronically signed by: Kevin Alcazar 07/04/2019 1:03 AM CDT Due to temporary technical issues with the PACS/Fluency reporting system, reports are being signed by the in house radiologist as a courtesy to ensure prompt reporting. The interpreting radiologist is f ully responsible for the content of the report.
--- NOTE | 2019-07-04 14:29 | P.CNS ---
Chief Complaint: Seizures Allergies No Known Drug Allergies Allergy (Verified 08/06/18 03:49) Unknown Home Medications: levETIRAcetam [Keppra Tab] 500 mg PO BID 30 Days #60 tab 07/04/19 - Past Medical/Surgical History Diabetic: No -: schyzophrenia -: bipolar -: htn -: tubal ligation -: left ankle -: ectopic - Family History Mother Medical History: Hypertension, Diabetes, Stroke - Social History Smoking Status: Unknown if ever smoked Alcohol use: No CD- Drugs: No Caffeine use: No Place of Residence: Home Physical Examination Temp Pulse Resp BP Pulse Ox 97.9 F 94 H 15 114/86 97 07/04/19 12:00 07/04/19 12:00 07/04/19 12:00 07/04/19 12:00 07/04/19 12:00 Laboratory Data (last 24 hrs) 07/04/19 00:40: PT 13.1 H, INR 1.11, APTT 33.4 07/04/19 00:40: WBC 19.4 H, Hgb 12.2, Hct 38.0, Plt Count 358 07/04/19 00:40: Sodium 135 L, Potassium 4.1, BUN 35 H, Creatinine 1.45 H, Glucose 195 H, Total Bilirubin 0.4, AST 18, ALT 31, Alkaline Phosphatase 104 Conclusions/Impression: CKD stage 3 Seizure
--- NOTE | 2019-07-04 19:09 | CON ---
Reason For Consultation: Consultation called because of seizures. History Of Present Illness: Ms. Chambers is a 53-year-old patient with essential tremor, bipola r disorder, who came to [facility] on the with a seizure described as generalized tonic -clonic. However, there was no tongue biting. No loss of bowel or bladder control. She did have a postictal phase of confusion. No reported precipitating factors such as a fever, cough, shortness of breath prior to the seizure. No history of recent drug or alcohol abuse. Her head CT scan at [facility] showed no acute ischemic or hemorrhagic changes. The subcortical structures were unre markable. The ventricular system, unremarkable. No skull fractures or any abnormalities. She was g iven Keppra 1 g in the emergency room and continued on 500 mg twice daily. Patient has not had addit ional seizures since being treated with Keppra and reportedly is more interactive, alert, and followi ng instructions and is at baseline level of functioning. Past Medical History: As indicated including bipolar disorder, depression, hypertension, schizophren ia, anxiety. Surgical History: Cholecystectomy. Allergies: NO KNOWN DRUG ALLERGIES. Family History: Noncontributory. Social History: No alcohol, tobacco, or IV drug use. Review of Systems: No recent fevers, chills, nausea, vomiting, myalgias, arthralgias, headache, weight change, rash. Physical Examination: Vital Signs: Blood pressure 114/86, pulse 88, respiratory rate 15, temperature 98.4, oxygen saturati on 97% on room air. Weight 254 pounds, height 5 feet 4 inches, BMI 43.6. General: Ms. Chambers is lying in bed. She is in no acute distress. HEENT: She is normocephalic, atraumatic. Her sclerae are anicteric. Oropharynx is moist and pink. Neck: Supple. Chest: Clear. Abdomen: Soft. Extremities: No edema or cyanosis. Neurologic: She is alert and oriented to situation, place, and person. Follows commands appropriate ly. She has no focal cranial nerves. Motor, coordination, sensation, gait deficits. She has 1+ ref lexes in upper and lower extremities and symmetric. Laboratory Studies: Her complete blood count with differential did show elevated white blood cell co unt of 19.4 with neutrophils of 88.7. It should be noted that an elevated white count may follow a g eneralized tonic-clonic seizure. Otherwise, her chemistries show slightly low sodium of 135, potassi um 4.1, chloride 106, carbon dioxide 17. She has chronic renal insufficiency with a creatinine of 1. 45. Glucose 195. Liver function studies are normal. Her urine drug screen was positive for benzodi azepines. Chest x-ray did show a probable left lower lobe pneumonia. Assessment: Ms. Chambers is a 53-year-old patient with multiple psychiatric problems and she chavez s recent onset seizure, possibly in the setting of pneumonia. She is on Rocephin. She does have ivan vated white count and a chest x-ray is suggestive of pneumonia. She is also on Keppra 500 mg twice d aily. She has aerobic and anaerobic cultures pending. Plan: 1.Continue with treatment of pneumonia as indicated. 2.Keppra 500 mg twice daily. 3.Once she is discharged, she may follow up with Dr. Pollack in clinic in 1 month. 4.She should follow up for her psychiatric diagnoses with her psychiatrist. CHIQUITA/ELKIN Voice ID: [id number] Report ID: [id number]
[2019-07-05 04:31] LABS: Absolute Lymphocytes (CBC) 2.5 K/uL (0.7-4.9); Basophils % 1.1 % (0-1.3); Hematocrit 32.4 % (36.0-45.0); Lymphocytes % 26.3 % (15.3-44.8); MPV 8.4 fL (7.6-11.3); RBC Red Blood Cell Count 3.81 M/uL (3.86-4.86)
[2019-07-05 05:00] LABS: Albumin 3.1 g/dL (3.4-5.0); Bilirubin Total 0.3 mg/dL (0.2-1.0); Magnesium 1.9 mg/dL (1.8-2.4); Phosphorus 2.7 mg/dL (2.5-4.9); Potassium 4.4 mmol/L (3.5-5.1)
[2019-07-05] MEDS: CEFTRIAXONE/SWI 1gm 1 GM/10 ML SYR IV SCH (05:08)
[2019-07-05] MEDS: NA CHLORIDE 0.9% 1,000 ML IV SCH (05:08)
--- NOTE | 2019-07-05 06:51 | EKG ---
Test Date: 2019-07-04 Test Time: 00:53:25 Flatbed Driver: RR MEASUREMENT RESULTS: Intervals: Rate: 82 HI: 150 QRSD: 84 QT: 378 QTc: 441 Wagner: P: 56 HI: 150 QRS: 51 T: 61 INTERPRETIVE STATEMENTS: Normal sinus rhythm Normal ECG Compared to ECG 12/12/2018 20:36:34 No significant changes Electronically Signed On 07-05-19 06:49:15 CDT by Iraj Lomas
[2019-07-05] MEDS: levETIRAcetam 500 MG TAB PO SCH (08:30)
[2019-07-05] MEDS: ENOXAPARIN 40 MG/0.4 ML SQ SCH (08:30)
[2019-07-05 08:38] VITALS: O2SAT 97
[2019-07-05 12:13] VITALS: BP 113/57; TEMP 98.2
== END 2019-07-05 13:07 | disposition home or self-care (01) ==
LOC: ER 00:24 → INTOOBSV 03:49 → ERHOLD 03:49 → 2ND 04:12
PROVIDERS: ADMIT Internal Medicine; ATTEND Internal Medicine
DX: A41.9 Sepsis, unspecified organism (principal); J18.9 Pneumonia, unspecified organism; R56.9 Unspecified convulsions; F31.9 Bipolar disorder, unspecified; E66.9 Obesity, unspecified; G25.0 Essential tremor; N18.3 Chronic kidney disease, stage 3 (moderate)
CPT/HCPCS: 36415; 51702; 70450; 71045; 80048; 80053; 80076; 80307; 80320; 80329; 81003; 81025; 83735; 84100; 84443; 85025; 85610; 85730; 87040; 93005; 94760; 96361; 96365; 96375; 99285; G0378; J0696; J1650; J1953; J2405; J7030

== ENCOUNTER 2019-10-04 23:46 | Emergency (ER) | payer OTHER ==
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
--- OUTSIDE RECORDS SUMMARY | 2019-10-04 23:49 | XMS REPORT | Continuity of Care Document ---
:1965 Author Organization [facility] Care Team Providers Name Role Phone [facility] Unavailable Un available Problems Problem Status Onset Classification Date Comments Sourc e Date Reported Benzodiazepine Resolved 12/14/19 Problem 07/12/2017 M edical dependence 17 Group (disorder) Anxiolytic Active Problem 07/12/2017 Medic al dependence Group (disorder) Drug therapy Active Problem 07/12/2017 Med ical finding (finding) Gr oup Schizophrenia Active Problem 07/12/2017 Me dical (disorder) Group Seen by Active Problem 07/12/2017 Medica l counsellor Group (finding) Medications No Data Provided [...] Location Location Encounter Encounter Reason Attending ADM ME Stat Source Details Type Number For Provider Date Date Visit Outpatient [id number] [facility] 12/07 Acti ve [facility] [place] Outpatient [id number] [facility] 03/26 Acti ve [facility] Ambulatory [id number] [facility] 03/26 03/26 Family Pre-Reg [facility] Outpatient [id number] [facility] 04/05 Acti ve [facility] Ambulatory [id number] [facility] 04/05 04/05 Family Pre-Reg [facility] Procedures Procedure Code Date Perfomer Comments Source Operation [id number] 03/08/2003 Medical Group Cholecystectomy [id number] 03/08/2000 Medica l Group Assessment and Plan No Data Provided for This Section Plan of Care No Data Provided for This Section Social History Social History Date Source Social History TypeResponse 12/07/2016 Medical Marian lechuga Substance Abuse Use: Past. Type: Prescription medications. Alcohol Past Smoking Status Current every day smoker; Type: Cigarett es; Exposure to Tobacco Smoke Patient smokes; Cigarette Smoking Last 365 Days Yes; Reg Smoking Cessation Counseling No; Tobacco use per day: 10; entered on: 12/07/16 Family History No Data Provided for This Section Advance Directives No Data Provided for This Section Functional Status No Data Provided for This Section
[2019-10-05] MEDS ORDERED: NA CHLORIDE 0.9% 500 ML ONE (00:44)
[2019-10-05 00:47] LABS: Absolute Lymphocytes (CBC) 2.1 K/uL (0.7-4.9); Basophils % 1.5 % (0-1.3); Hematocrit 29.5 % (36.0-45.0); Lymphocytes % 24.4 % (15.3-44.8); MPV 8.6 fL (7.6-11.3); RBC Red Blood Cell Count 3.52 M/uL (3.86-4.86)
[2019-10-05 00:49] LABS: Protime INR 1.03
[2019-10-05 01:45] LABS: ALT/SGPT 17 U/L (12-78); AST/SGOT 12 U/L (15-37); Albumin 2.9 g/dL (3.4-5.0); Alkaline Phosphatase 125 U/L (45-117); BUN Blood Urea Nitrogen 19 mg/dL (7-18); Bicarbonate 20 mmol/L (21-32); Bilirubin Direct < 0.1 mg/dL (0-0.2); Bilirubin Total 0.2 mg/dL (0.2-1.0); Glucose Level 103 mg/dL (74-106); NT PRO-BNP 168 pg/mL (<125); Potassium 4.9 mmol/L (3.5-5.1); Protein, Total 6.8 g/dL (6.4-8.2); Sodium Level 138 mmol/L (136-145); Troponin (Emerg Dept Use Only) < 0.02 ng/mL (0.0-0.045)
[2019-10-05 01:46] LABS: Magnesium 1.4 mg/dL (1.8-2.4)
[2019-10-05 02:18] LABS: Barbiturates NEGATIVE (NEGATIVE); Benzodiazepines NEGATIVE (NEGATIVE); Cocaine NEGATIVE (NEGATIVE); METHAMPHETAM NEGATIVE (NEGATIVE); Methadone NEGATIVE (NEGATIVE); Opiates NEGATIVE (NEGATIVE); Phencyclidine NEGATIVE (NEGATIVE); THC Cannibis NEGATIVE (NEGATIVE)
[2019-10-05] MEDS ORDERED: MAGNESIUM SULFATE 1 gm IVPB 1 GM/100 ML BAG IV ONE (02:18)
[2019-10-05] MEDS ORDERED: CALCIUM GLUCONATE 1 GM IVPB 1 GM/50 ML BAG IV ONE (02:18)
[2019-10-05 02:37] LABS: Urine Blood 3+ (NEG); Urine Glucose NEGATIVE (NEG); Urine Protein 2+ (NEG)
[2019-10-05 02:38] LABS: Urine Bacteria 20-50 /HPF (<20); Urine Culture Reflex Order REFLEXED
--- NOTE | 2019-10-05 03:12 | ER ---
Nurse's Notes [facility] Name: Tabatha Chambers Age: 53 yrs Sex: Female : 1965 Arrival Date: 10/05/2019 Time: 00:01 Bed 18 Private MD: Diagnosis: Dizziness and giddiness;Hypotension, unspecified;Hypocalcemia;Hypomagnesemia Presentation: 10/04 00:02 Chief complaint: EMS states: BIBA FROM HOME. PT CALLED 911 FOR HYPOTENSIONS. CHECKED mt2 WITH B/P AT HOME READ 74/40. ON SCENE B/P WAS 122-70. HR 66. NSR. C/O DIZZINESS. LINE STARTED BUT NO FLUIDS. Coronavirus screen: Patient denies a cough. Patient denies shortness of breath or difficulty breathing. Patient denies measured and/or subjective temperature greater than 100.4F prior to today's visit. Patient denies travel on a cruise ship or to a country the [facility] currently lists as an affected area. Patient denies contact with known and/or suspected case of COVID-19. Patient instructed to continue to wear a mask when interacting with others. Patient moved to private room, placed in contact and droplet isolation with eye protection until further assessment. Ebola Screen: No symptoms or risks identified at this time. Initial Sepsis Screen: Does the patient meet any 2 criteria? HR > 90 bpm. No. Patient's initial sepsis screen is negative. Does the patient have a suspected source of infection? No. Patient's initial sepsis screen is negative. Risk Assessment: Do you want to hurt yourself or someone else?. Onset of symptoms was October 04, 2019. Care prior to arrival: IV. 00:02 Method Of Arrival: EMS: [facility] mt2 00:02 Acuity: VERO 2 mt2 Triage Assessment: 00:07 General: Appears uncomfortable, Behavior is cooperative. Pain: Complains of pain in mt2 back Pain does not radiate. Pain currently is 5 out of 10 on a pain scale. EENT: No deficits noted. Neuro: Level of Consciousness is awake, alert, Oriented to person, place, time, situation, Gait is unsteady, Reports dizziness. Cardiovascular: Parent/caregiver reports patient has had lightheadedness. Respiratory: No deficits noted. GI: No deficits noted. : No deficits noted. Derm: No deficits noted. Musculoskeletal: Reports pain in back. PHYSICAL THERAPIST: 00:07 LMP 08/26/2019 mt2 Historical: - Allergies: 00:08 No Known Allergies; jd3 - Home Meds: 00:07 Seroquel 300 mg oral tab for Schizophrenia [Active]; mt2 00:49 folic acid 1 mg oral tab 1 tab once daily for Folate Deficiency [Active]; propranolol mt2 20 mg oral tab 1 tab daily for Hypertension [Active]; tizanidine 4 mg oral cap 1 cap 3 times per day for Muscle Spasm [Active]; melatonin 10 mg oral cap nightly for Sleep Disorder [Active]; lisinopril 20 mg oral tab 1 tab once daily for Hypertension [Active]; Vitamin B-12 500 mcg Oral lozg daily for Prevention of Vitamin B12 Deficiency [Active]; aspirin 81 mg Oral chew 1 tab once daily for Prevention of Transient Ischemic Attacks [Active]; pantoprazole 40 mg oral TbEC 1 tab once daily for Gastroesophageal Reflux [Active]; albuterol sulfate 90 mcg/actuation Inhl HFAA 2 puffs every 4 hours for Bronchospasm Prevention [Active]; Mucinex DM 30-600 mg oral Tb12 1 tab every 12 hours for Cough [Active]; - PMHx: 00:07 Anxiety; Bipolar disorder; Depression; Schizophrenia; Hypertension; mt2 - PSHx: 00:07 Cholecystectomy; mt2 - Immunization history:: Adult Immunizations up to date. - Social history:: Smoking status: Patient denies any tobacco usage or history of. Screenin:03 Abuse screen: Denies threats or abuse. Nutritional screening: No deficits noted. jd3 Tuberculosis screening: No symptoms or risk factors identified. Fall Risk Ambulatory Aid- None/Bed Rest/Nurse Assist (0 pts). Gait- Weak (10 pts.). Mental Status- Oriented to own ability (0 pts). Total Kim Fall Scale indicates No Risk (0-24 pts). Assessment: 00:01 General: Appears in no apparent distress. uncomfortable, Behavior is calm, cooperative, jd3 appropriate for age. Pain: Complains of pain in back Quality of pain is described as aching. Neuro: Level of Consciousness is awake, alert, obeys commands, Oriented to person, place, time, situation, Reports dizziness. Cardiovascular: Denies chest pain, Capillary refill < 3 seconds Patient's skin is warm and dry. Respiratory: Airway is patent Respiratory effort is even, unlabored, Respiratory pattern is regular, symmetrical, Denies cough, shortness of breath. GI: Abdomen is round non-distended, Abd is soft and non tender X 4 quads. Patient currently denies abdominal pain. : No signs and/or symptoms were reported regarding the genitourinary system. EENT: No signs and/or symptoms were reported regarding the EENT system. Derm: Skin is intact, Skin is dry, Skin is normal, Skin temperature is warm. Musculoskeletal: Circulation, motion, and sensation intact. Range of motion: intact in all extremities. 00:10 Reassessment: PT ATTEMPTED TO STAND TO USE BR. STATED DIZZINESS. B/P DECREASED TO mt2 72/38. PT ASSISTED BACKED TO STRETCHER. 01:02 Reassessment: recollect drawn and sent due to lab claiming that specimen was hemolyzed, sg pt updated on delay, pt stated understanding, will continue to monitor. 02:16 Reassessment: Patient appears in no apparent distress at this time. Patient and/or jd3 family updated on plan of care and expected duration. Pain level reassessed. Patient is alert, oriented x 3, equal unlabored respirations, skin warm/dry/pink. Patient states feeling better. 03:33 Reassessment: Patient and/or family updated on plan of care and expected duration. Pain mt2 level reassessed. Patient is alert, oriented x 3, equal unlabored respirations, skin warm/dry/pink. Patient denies pain at this time. General: Appears in no apparent distress. comfortable, Behavior is calm, cooperative. Neuro: No deficits noted. Vital Signs: 00:02 BP 89 / 54; Pulse 57; Resp 16; Temp 98.1(O); Pulse Ox 98% ; Weight 122.47 kg; Pain 5/10;mt2 00:49 BP 95 / 53; Pulse 56; Resp 17; Pulse Ox 100% ; Pain 0/10; mt2 02:16 BP 100 / 59; Pulse 67; Resp 17 S; Pulse Ox 100% on R/A; jd3 03:15 BP 98 / 58; Pulse 64; Resp 16; Pulse Ox 100% ; Pain 0/10; mt2 ED Course: 00:01 Patient arrived in ED. mt2 00:01 Shay Deleon, RN is Primary Nurse. jd3 00:01 Mari Holguin FNP-C is [facility]. snw 00:02 Darian Pate MD is Attending Physician. snw 00:02 Patient has correct armband on for positive identification. Placed in gown. Bed in low jd3 position. Call light in reach. Side rails up X2. tread tuber machine operator on. Pulse ox on. NIBP on. 00:03 Maintain EMS IV. Dressing intact. Good blood return noted. Site clean \T\ dry. Gauge \T\ riya 3 site: 22 G left FA. 00:06 Triage completed. mt2 00:07 Arm band placed on right wrist. mt2 00:41 IV discontinued, intact, bleeding controlled, No redness/swelling at site. Pressure mt2 dressing applied. 00:41 Initial lab(s) drawn, by me, sent to lab. Inserted saline lock: 20 gauge in left mt2 antecubital area, using aseptic technique. Blood collected. 00:45 XRAY Chest (1 view) In Process Unspecified. EDMS 01:10 UDS Sent. ds4 01:45 Notified ED physician of a critical lab result(s). Magnesium 1.4. sg 03:33 No provider procedures requiring assistance completed. mt2 Administered Medications: 00:41 Drug: NS 0.9% 500 ml Route: IV; Rate: bolus; Site: left antecubital; mt2 01:30 Follow up: IV Status: Completed infusion; IV Intake: 500ml mt2 02:15 Drug: Magnesium Sulfate 1 grams Route: IVPB; Infused Over: 1 hrs; Site: left jd3 antecubital; 03:14 Follow up: Response: No adverse reaction; Blood pressure is elevated; IV Status: mt2 Completed infusion 02:15 Drug: Calcium Gluconate 1 grams Route: IVPB; Infused Over: 60 mins; Site: left jd3 antecubital; 03:14 Follow up: Response: No adverse reaction; IV Status: Completed infusion; IV Intake: mt2 100ml Intake: 01:30 IV: 500ml; Total: 500ml. mt2 03:14 IV: 100ml; Total: 600ml. mt2 Outcome: 03:11 Discharge ordered by . gabino 03:33 Discharged to home ambulatory. mt2 03:33 Condition: good 03:33 Discharge instructions given to patient, Instructed on discharge instructions, follow up and referral plans. medication usage, Demonstrated understanding of instructions, follow-up care, medications. 03:35 Patient left the ED. mt2 Signatures: Dispatcher [employer] EDMS Mikey Ritchie RN RN sg Waters, Shelly, BUGGY RUNNER-C BUGGY RUNNER-Csnw Darian Pate MD MD rn Swanson, Donovan ds4 Shay Deleon RN RN jd3 Cassie English RN RN mt2 Corrections: (The following items were deleted from the chart) 01:46 00:01 Neuro: Level of Consciousness is awake, alert, obeys commands, Oriented to jd3 person, place, time, situation, jd3
--- NOTE | 2019-10-05 03:12 | EDPHYS ---
Physician Documentation [facility] Name: Tabatha Chambers Age: 53 yrs Sex: Female : 1965 Arrival Date: 10/05/2019 Time: 00:01 Bed 18 Private MD: ED Physician Darian Pate HPI: 10/04 00:10 This 53 yrs old Female presents to ER via EMS with complaints of dizziness. snw 00:10 Pt states her MD told her to increase her Seroquel from 200mg to 300mg. Pt states she snw has been dizzy ever since. Pt states she became very dizzy tonight post taking her medication. . Onset: The symptoms/episode began/occurred acutely. Severity of symptoms: At their worst the symptoms were moderate. The patient has not experienced similar symptoms in the past. The patient has been recently seen by a physician: as noted. 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 mt2 Historical: - Allergies: 00:08 No Known Allergies; jd3 - Home Meds: 00:07 Seroquel 300 mg oral tab for Schizophrenia [Active]; mt2 00:49 folic acid 1 mg oral tab 1 tab once daily for Folate Deficiency [Active]; propranolol mt2 20 mg oral tab 1 tab daily for Hypertension [Active]; tizanidine 4 mg oral cap 1 cap 3 times per day for Muscle Spasm [Active]; melatonin 10 mg oral cap nightly for Sleep Disorder [Active]; lisinopril 20 mg oral tab 1 tab once daily for Hypertension [Active]; Vitamin B-12 500 mcg Oral lozg daily for Prevention of Vitamin B12 Deficiency [Active]; aspirin 81 mg Oral chew 1 tab once daily for Prevention of Transient Ischemic Attacks [Active]; pantoprazole 40 mg oral TbEC 1 tab once daily for Gastroesophageal Reflux [Active]; albuterol sulfate 90 mcg/actuation Inhl HFAA 2 puffs every 4 hours for Bronchospasm Prevention [Active]; Mucinex DM 30-600 mg oral Tb12 1 tab every 12 hours for Cough [Active]; - PMHx: 00:07 Anxiety; Bipolar disorder; Depression; Schizophrenia; Hypertension; mt2 - PSHx: 00:07 Cholecystectomy; mt2 - Immunization history:: Adult Immunizations up to date. - Social history:: Smoking status: Patient denies any tobacco usage or history of. ROS: 00:09 Constitutional: Negative for fever, chills, and weight loss, Eyes: Negative for injury, snw pain, redness, and discharge, ENT: Negative for injury, pain, and discharge, Neck: Negative for injury, pain, and swelling, Cardiovascular: Negative for chest pain, palpitations, and edema, Respiratory: Negative for shortness of breath, cough, wheezing, and pleuritic chest pain, Abdomen/GI: Negative for abdominal pain, nausea, vomiting, diarrhea, and constipation, Back: Negative for injury and pain, : Negative for injury, bleeding, discharge, and swelling, MS/Extremity: Negative for injury and deformity, Skin: Negative for injury, rash, and discoloration. 00:09 Neuro: Positive for dizziness. Exam: 00:04 Head/Face: Normocephalic, atraumatic. Eyes: Pupils equal round and reactive to light, snw extra-ocular motions intact. Lids and lashes normal. Conjunctiva and sclera are non-icteric and not injected. Cornea within normal limits. Periorbital areas with no swelling, redness, or edema. ENT: Nares patent. No nasal discharge, no septal abnormalities noted. Tympanic membranes are normal and external auditory canals are clear. Oropharynx with no redness, swelling, or masses, exudates, or evidence of obstruction, uvula midline. Mucous membranes moist. Neck: Trachea midline, no thyromegaly or masses palpated, and no cervical lymphadenopathy. Supple, full range of motion without nuchal rigidity, or vertebral point tenderness. No Meningismus. Chest/axilla: Normal chest wall appearance and motion. Nontender with no deformity. No lesions are appreciated. Cardiovascular: Regular rate and rhythm with a normal S1 and S2. No gallops, murmurs, or rubs. Normal PMI, no JVD. No pulse deficits. Respiratory: Lungs have equal breath sounds bilaterally, clear to auscultation and percussion. No rales, rhonchi or wheezes noted. No increased work of breathing, no retractions or nasal flaring. Abdomen/GI: Soft, non-tender, with normal bowel sounds. No distension or tympany. No guarding or rebound. No evidence of tenderness throughout. Back: No spinal tenderness. No costovertebral tenderness. Full range of motion. Skin: Warm, dry with normal turgor. Normal color with no rashes, no lesions, and no evidence of cellulitis. MS/ Extremity: Pulses equal, no cyanosis. Neurovascular intact. Full, normal range of motion. Neuro: Awake and alert, GCS 15, oriented to person, place, time, and situation. Cranial nerves II-XII grossly intact. Motor strength 5/5 in all extremities. Sensory grossly intact. Cerebellar exam normal. Normal gait. Psych: Awake, alert, with orientation to person, place and time. Behavior, mood, and affect are within normal limits. 00:04 Constitutional: The patient appears alert, awake, anxious, obese. 00:25 ECG was reviewed by the Attending Physician. snw Vital Signs: 00:02 BP 89 / 54; Pulse 57; Resp 16; Temp 98.1(O); Pulse Ox 98% ; Weight 122.47 kg; Pain 5/10;mt2 00:49 BP 95 / 53; Pulse 56; Resp 17; Pulse Ox 100% ; Pain 0/10; mt2 02:16 BP 100 / 59; Pulse 67; Resp 17 S; Pulse Ox 100% on R/A; jd3 03:15 BP 98 / 58; Pulse 64; Resp 16; Pulse Ox 100% ; Pain 0/10; mt2 MDM: 00:11 Data reviewed: vital signs, nurses notes. Data interpreted: Pulse oximetry: on room air snw is 98 %. Interpretation: normal. 00:15 Patient medically screened. snw 01:17 Transition of care: After a detail discussion of the patient's case, care is snw transferred to Darian Pate MD. 02:16 ED course: Pt feels much better, BP increasing, bedside ECHO does not reveal large rn pericardial effusion/tamponade. . 03:09 ED course: + blood in urine but patient reports just started menstrual period. Denies rn blood in stool as well. States feels much better. . 03:10 Counseling: I had a detailed discussion with the patient and/or guardian regarding: the rn historical points, exam findings, and any diagnostic results supporting the discharge/admit diagnosis, lab results, radiology results, the need for outpatient follow up, to return to the emergency department if symptoms worsen or persist or if there are any questions or concerns that arise at home. Response to treatment: the patient's symptoms have markedly improved after treatment, the patient's condition has returned to base line, the patient is now symptom free, and as a result, I will discharge patient. Special discussion: I discussed with the patient/guardian in detail that at this point there is no indication for admission to the hospital. It is understood, however, that if the symptoms persist or worsen the patient needs to return immediately for re-evaluation. Based on the history and exam findings, there is no indication for further emergent testing or inpatient evaluation. I discussed with the patient/guardian the need to see the primary care provider for further evaluation of the symptoms. 03:29 ED course: Of note, all BPs obtained here were on wrist/forearm.. rn 10/04 00:13 Order name: Basic Metabolic Panel; Complete Time: 02:08 snw 10/04 00:13 Order name: CBC with Diff; Complete Time: 01: snw 10/04 00:13 Order name: LFT's; Complete Time: 02:08 snw 10/04 00:13 Order name: Magnesium; Complete Time: 02:08 snw 10/04 00:13 Order name: NT PRO-BNP; Complete Time: 02:08 snw 10/04 00:13 Order name: PT-INR; Complete Time: 01: snw 10/04 00:13 Order name: Troponin (emerg Dept Use Only); Complete Time: 02:08 snw 10/04 00:13 Order name: XRAY Chest (1 view) snw 10/04 00:13 Order name: UDS; Complete Time: 03:01 snw 10/04 00:13 Order name: Urine Microscopic Only; Complete Time: 03:01 snw 10/04 01:46 Order name: Urine Dipstick--Ancillary (enter results); Complete Time: 03:01 ar5 10/04 02:39 Order name: Urine Culture EDMS 10/04 00:13 Order name: EKG; Complete Time: 00:14 snw 10/04 00:13 Order name: Cardiac monitoring; Complete Time: 00:30 snw 10/04 00:13 Order name: EKG - Nurse/Tech; Complete Time: 00:30 snw 10/04 00:13 Order name: IV Saline Lock; Complete Time: 00:41 snw 10/04 00:13 Order name: Labs collected and sent; Complete Time: 00:41 snw 10/04 00:13 Order name: O2 Per Protocol; Complete Time: 00:13 snw 10/04 00:13 Order name: O2 Sat Monitoring; Complete Time: 00: snw 10/04 00:13 Order name: Urine Dipstick-Ancillary (obtain specimen); Complete Time: 01:44 snw EC:25 Rate is 56 beats/min. Rhythm is regular. QRS [place] is Normal. [place] interval is prolonged. snw QRS interval is normal. QT interval is prolonged. Clinical impression: Sinus bradycardia. Administered Medications: 00:41 Drug: NS 0.9% 500 ml Route: IV; Rate: bolus; Site: left antecubital; mt2 01:30 Follow up: IV Status: Completed infusion; IV Intake: 500ml mt2 02:15 Drug: Magnesium Sulfate 1 grams Route: IVPB; Infused Over: 1 hrs; Site: left jd3 antecubital; 03:14 Follow up: Response: No adverse reaction; Blood pressure is elevated; IV Status: mt2 Completed infusion 02:15 Drug: Calcium Gluconate 1 grams Route: IVPB; Infused Over: 60 mins; Site: left jd3 antecubital; 03:14 Follow up: Response: No adverse reaction; IV Status: Completed infusion; IV Intake: mt2 100ml Disposition: 03:42 Co-signature as Attending Physician, Darian Pate MD. rn Disposition: 10/05/19 03:11 Discharged to Home. Impression: Dizziness and giddiness, Hypotension, unspecified, Hypocalcemia, Hypomagnesemia. - Condition is Stable. - Discharge Instructions: Dizziness, Hypotension. - Medication Reconciliation Form, Thank You Letter, Antibiotic Education, Prescription Opioid Use form. - Follow up: Private Physician; When: As needed; Reason: Recheck today's complaints, Re-evaluation by your physician. - Problem is new. - Symptoms have improved. Signatures: Dispatcher [employer] EDMS Mari Holguin, DOUGHNUT FRYER-C DOUGHNUT FRYER-Csnw Darian Pate MD MD rn Davies, Jonathon, RN RN jd3 Cassie English RN RN mt2 Corrections: (The following items were deleted from the chart) 03:35 03:11 10/05/2019 03:11 Discharged to Home. Impression: Dizziness and giddiness; mt2 Hypotension, unspecified; Hypocalcemia; Hypomagnesemia. Condition is Stable. Forms are Medication Reconciliation Form, Thank You Letter, Antibiotic Education, Prescription Opioid Use. Follow up: Private Physician; When: As needed; Reason: Recheck today's complaints, Re-evaluation by your physician. Problem is new. Symptoms have improved. rn
[2019-10-05 03:42] VITALS: TEMP 98.1
[2019-10-05 03:44] VITALS: O2SAT 100
[2019-10-05 03:47] VITALS: BP 98/58
--- NOTE | 2019-10-05 07:33 | EKG ---
Test Date: 2019-10-05 Test Time: 00:23:33 Drier Unloader: ALYSON MEASUREMENT RESULTS: Intervals: Rate: 56 NM: 162 QRSD: 78 QT: 454 QTc: 438 [place]: P: 57 NM: 162 QRS: 23 T: 45 INTERPRETIVE STATEMENTS: Sinus bradycardia Low voltage QRS Borderline ECG Compared to ECG 07/04/2019 00:53:25 Low QRS voltage now present Sinus rhythm no longer present Electronically Signed On 10-05-19 07:32:19 CDT by Iraj Lomas
--- NOTE | 2019-10-05 08:03 | RAD REPORT ---
EXAM DESCRIPTION: [place] Single View10/05/2019 12:45 am CLINICAL HISTORY: Hypotension COMPARISON: June 2019 FINDINGS: The lungs appear clear of acute infiltrate. The heart is normal size IMPRESSION: No acute abnormalities displayed
== END 2019-10-05 03:35 | disposition home or self-care (01) ==
LOC: ER 23:46
DX: I95.9 Hypotension, unspecified (principal); E83.51 Hypocalcemia; E83.42 Hypomagnesemia; I10 Essential (primary) hypertension; F20.9 Schizophrenia, unspecified
CPT/HCPCS: 96365; 96361; 96368; 93005; 87088; 85025; 87086; 80048; 36415; 83735; 85610; 80076; 80307 ×8; 87077; 87186; 84484; 83880; 71045; 99284; J3475; J0610; J7040; 81003; 81015

== ENCOUNTER 2020-02-09 01:07 | Emergency (ER) | payer OTHER ==
--- OUTSIDE RECORDS SUMMARY | 2020-02-09 01:09 | XMS REPORT | Continuity of Care Document ---
:1965 Author Organization [facility] Care Team Providers Name Role Phone [facility] Unavailable Un available Problems Problem Status Onset [...] Location Location Encounter Encounter Reason Attending ADM [place] Stat Source Details Type Number For Provider Date Date Visit Outpatient [id number] [facility] 12/07 Acti ve [facility] [place] Outpatient [id number] [facility] 03/26 Acti ve [facility] [id number] [facility] 03/26 03/26 Family Pre-Reg [facility] Out[facility] [id number] [facility] 04/05 Acti ve [facility] [id number] [facility] 04/05 04/05 Family Pre-Reg [facility] Procedures Procedure Code Date Perfomer Comments Source Operation [id number] 03/08/2003 Medical Group Cholecystectomy [id number] 03/08/2000 Medica l Group Assessment and Plan [...]
--- OUTSIDE RECORDS SUMMARY | 2020-02-09 01:10 | XMS REPORT | Continuity of Care Document ---
:1965 Author Organization [facility] t Address [address] [place] [address] Care Team Providers Name Role Phone Doctor Unassigned, Name Attending Clinician Unavailable Luz Attending Clinician [phone] Nitin Attending Clinician Unavailable Jose Attending Clinician Unavailable Alec Attending Clinician Unavailable Janes Morse Attending Clinician Luz Unavailable [phone] Problems Condition Condition Condition Status Onset Resolution Last Treating Co mments Source Name Details Category Date Date Treatment Clinician Date ANXIETY Condition Active 2018-032019-02-14 Tricia Escobar gaclolis DISORDER, 04-17 14:12:47 Deloris Com alexsandra UNSPECIFIE 00:00: ty D 00 Health SCHIZOAFFE Condition Active 2018-032019-02-14 Tico Escobar CTIVE 04-17 14:12:47 Deloris Commun i DISORDER, [...] Date Treatment Clinician Date Benzodiaze Problem Resolve 2016-2017-07-12 2017-07-12 Sunitha munson d 0-08 15:36:56 15:36:56 l dependence 00:00: George n (disorder) 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 Five kids Not homeless. City: [place] . lives with daughter Highest education level: none-8th grade. unemployed dropped out in 7th grade got ged in 1988Sex at : Female. Sexual orientation: Heterosexual. Gender identity: Female. drug use, illicit 2019-02-14 2019-02-14 [facility] 13:01:12 13:01:12 Health alcohol use 2019-02-14 2019-02-14 [facility] 13:01:12 13:01:12 Health sexual orientation 2019-02-14 2019-02-14 [facility] 13:01:12 13:01:12 Health sex at 2019-02-14 2019-02-14 [...] kids social history 2019-02-14 2019-02-14 reviewed today [facility] reviewed E&M 13:01:12 13:01:12 Health Social History 2016-12-07 2016-12-07 [facility] brian 16:49:19 16:49:19 Smoking Status Start Date Stop Date Source Ex-smoker (finding) 2019-02-14 13:01:12 2019-02-14 13:01:12 [facility] Medications Ordered Filled Start Stop Current Ordering [...] Diagnostic evaluation with 2019-02-14 14:55:13 Deloris Escobar [facility] - [id number] Health Operation 2003-03-08 00:00:00 [facility] Cholecystectomy 2000-03-08 00:00:00 [facility] Encounters Start End Encounter Admission Attending Care Care Encounter Source Date/Time Date/Time Type Type Clinicians Facility Department ID 2019-10-09 2019-10-09 Orders Doctor SARAH BETH [id number] 00:00:00 00:00:00 Only Unassigned, LAWRENCE [id number] [facility] [id number] 2019-02-14 2019-02-14 Office Deloris Escobar [facility] [place] En counter/ [facility] 00:00:00 00:00:00 Visit Shelly Taveras [id number] [facility] [id number] [facility] 2018-09-23 2018-09-23 Office Antonietta Garcia [facility] En counter/ [facility] 00:00:00 00:00:00 Visit Sarika [facility] [id number] [facility] [id number] Services Health Contact [facility] 2018-09-23 2018-09-23 Office Alec [facility] Encoun ter/ [facility] 00:00:00 00:00:00 Visit Sarika [facility] [id number] [facility] [id number] Services Health Contact [place] 2017-04-05 2017-04-05 Outpatient Morse, [facility] [id number] 11:15:00 11:15:00 Gail Medina 2017-03-26 2017-03-26 Outpatient Morse, [facility] [id number] 15:15:00 15:15:00 Gail Marrero 01 Results This patient has no known results.
[2020-02-09] MEDS ORDERED: NA CHLORIDE 0.9% 1,000 ML ONE ×2 (01:43→02:55)
[2020-02-09] MEDS ORDERED: ONDANSETRON 4 MG/2 ML VIAL ONE (01:43)
[2020-02-09 01:54] LABS: Absolute Lymphocytes (CBC) 3.1 K/uL (0.7-4.9); Basophils % 0.6 % (0-1.3); Lymphocytes % 21.3 % (15.3-44.8); RBC Red Blood Cell Count 4.29 M/uL (3.86-4.86)
[2020-02-09 02:04] LABS: Potassium 4.6 mmol/L (3.5-5.1)
[2020-02-09 02:41] LABS: Urine Blood TRACE (NEG); Urine Glucose NEGATIVE (NEG); Urine Protein 1+ (NEG); Urine Specific Gravity >1.030 (1.005-1.030); Urine pH 6.5 (5.0-7.0)
[2020-02-09 03:02] LABS: Barbiturates NEGATIVE (NEGATIVE); Benzodiazepines POSITIVE (NEGATIVE); Cocaine NEGATIVE (NEGATIVE); METHAMPHETAM NEGATIVE (NEGATIVE); Methadone NEGATIVE (NEGATIVE); Opiates NEGATIVE (NEGATIVE); Phencyclidine NEGATIVE (NEGATIVE); THC Cannibis NEGATIVE (NEGATIVE)
[2020-02-09 04:56] LABS: Absolute Lymphocytes (CBC) 1.5 K/uL (0.7-4.9); Basophils % 0.4 % (0-1.3); Hematocrit 33.1 % (36.0-45.0); Lymphocytes % 10.6 % (15.3-44.8); MPV 7.8 fL (7.6-11.3); RBC Red Blood Cell Count 3.97 M/uL (3.86-4.86)
[2020-02-09 05:19] LABS: Potassium 4.9 mmol/L (3.5-5.1)
--- NOTE | 2020-02-09 05:24 | EDPHYS ---
Physician Documentation [facility] Name: Tabatha Chambers Age: 54 yrs Sex: Female : 1965 Arrival Date: 02/09/2020 Time: 01:11 Bed 2 Private MD: ED Physician Kam Mai HPI: 02/08 01:27 This 54 yrs old Female presents to ER via EMS with complaints of Seizure. pkl 01:27 The patient presents after having a single isolated seizure, that lasted an unknown pkl period of time, the episode(s) was witnessed, by family, daughter. Character of seizure(s): Loss of consciousness: the patient experienced loss of consciousness, brief. Seizure onset: just prior to arrival. Context: the seizure(s) was witnessed. Context: the seizure(s) was witnessed, by family, daughter. Associated injury: The patient did not suffer any apparent associated injury. Patient said she is not taking medications for seizure. She has not seen a Neurologist. 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/2020 ll2 Historical: - Allergies: 01:24 No Known Allergies; ll2 - Home Meds: 01:24 albuterol sulfate 90 mcg/actuation Inhl HFAA 2 puffs every 4 hours for Bronchospasm ll2 Prevention [Active]; aspirin 81 mg Oral chew 1 tab once daily for Prevention of Transient Ischemic Attacks [Active]; Hydroxyzine Oral [Active]; folic acid 1 mg Oral tab 1 tab once daily for Folate Deficiency [Active]; lisinopril 20 mg Oral tab 1 tab once daily for Hypertension [Active]; melatonin 10 mg Oral cap nightly for sleep disorder [Active]; Vitamin B-12 500 mcg Oral lozg daily for Prevention of Vitamin B12 Deficiency [Active]; - Immunization history:: Adult Immunizations up to date. - Social history:: Smoking status: unknown. ROS: 01:27 Eyes: Negative for injury, pain, redness, and discharge, ENT: Negative for injury, pkl pain, and discharge, Neck: Negative for injury, pain, and swelling, Cardiovascular: Negative for chest pain, palpitations, and edema, Respiratory: Negative for shortness of breath, cough, wheezing, and pleuritic chest pain, Abdomen/GI: Negative for abdominal pain, nausea, vomiting, diarrhea, and constipation, Back: Negative for injury and pain, : Negative for injury, bleeding, discharge, and swelling, MS/Extremity: Negative for injury and deformity, Skin: Negative for injury, rash, and discoloration. : Neuro: Positive for seizure activity. Exam: Head/Face: Normocephalic, atraumatic. Eyes: Pupils equal round and reactive to light, pkl extra-ocular motions intact. Lids and lashes normal. Conjunctiva and sclera are non-icteric and not injected. Cornea within normal limits. Periorbital areas with no swelling, redness, or edema. ENT: Nares patent. No nasal discharge, no septal abnormalities noted. Tympanic membranes are normal and external auditory canals are clear. Oropharynx with no redness, swelling, or masses, exudates, or evidence of obstruction, uvula midline. Mucous membranes moist. Neck: Trachea midline, no thyromegaly or masses palpated, and no cervical lymphadenopathy. Supple, full range of motion without nuchal rigidity, or vertebral point tenderness. No Meningismus. Chest/axilla: Normal chest wall appearance and motion. Nontender with no deformity. No lesions are appreciated. Cardiovascular: Regular rate and rhythm with a normal S1 and S2. No gallops, murmurs, or rubs. Normal PMI, no JVD. No pulse deficits. Respiratory: Lungs have equal breath sounds bilaterally, clear to auscultation and percussion. No rales, rhonchi or wheezes noted. No increased work of breathing, no retractions or nasal flaring. Abdomen/GI: Soft, non-tender, with normal bowel sounds. No distension or tympany. No guarding or rebound. No evidence of tenderness throughout. Back: No spinal tenderness. No costovertebral tenderness. Full range of motion. Skin: Warm, dry with normal turgor. Normal color with no rashes, no lesions, and no evidence of cellulitis. MS/ Extremity: Pulses equal, no cyanosis. Neurovascular intact. Full, normal range of motion. Neuro: Awake and alert, GCS 15, oriented to person, place, time, and situation. Cranial nerves II-XII grossly intact. Motor strength 5/5 in all extremities. Sensory grossly intact. Cerebellar exam normal. Normal gait. Vital Signs: BP 154 / 76; Pulse 81; Resp 15; Temp 98.3; Pulse Ox 98% on R/A; ll2 02:36 BP 131 / 73; Pulse 74; Resp 17; Temp 98; Pulse Ox 99% on R/A; ll2 04:00 BP 118 / 85; Pulse 72; Resp 19; Pulse Ox 99% on R/A; ll2 [place] Coma Score: 01:37 Eye Response: spontaneous(4). Verbal Response: oriented(5). Motor Response: obeys ll2 commands(6). Total: 15. MDM: 01:13 Patient medically screened. pkl 05:20 Data reviewed: vital signs, nurses notes, lab test result(s), radiologic studies, CT pkl scan. ED course: Patient feeling better. Discussed lab and imaging studies with patient. Advised to follow up with Neurologist ( Dr. Pollack ) in 2 to 3 days. Patient understood instructions. 02/08 01:27 Order name: CBC with Diff; Complete Time: 02:17 pkl 02/08 01:27 Order name: Chem 7; Complete Time: 02:17 pkl 02/08 01:27 Order name: UDS; Complete Time: 03:56 pkl 02/08 02:35 Order name: Urine --Ancillary (enter results); Complete Time: 03:56 tt3 04 02:35 Order name: Urine Dipstick--Ancillary (enter results); Complete Time: 03:56 tt3 04 04:39 Order name: CBC with Diff; Complete Time: 05:06 ll2 02/08 01:27 Order name: CT Head Brain wo Cont pkl 02/08 04:39 Order name: Chem 7; Complete Time: 05:20 ll2 Administered Medications: 01:35 Drug: NS 0.9% 1000 ml Route: IV; Rate: 125 ml/hr; Site: left antecubital; ll2 01:35 Drug: Zofran (Ondansetron) 4 mg Route: IVP; Site: left antecubital; ll2 02:46 Follow up: Response: No adverse reaction ea 02:46 Drug: NS 0.9% 1000 ml Route: IV; Rate: 1000 ml; Site: left antecubital; ea Disposition: 02/09/20 05:23 Discharged to Home. Impression: Seizure. - Condition is Stable. - Medication Reconciliation Form, Thank You Letter, Antibiotic Education, Prescription Opioid Use form. - Follow up: Chalino Pollack MD; When: 2 - 3 days; Reason: Re-evaluation by your physician. - Problem is new. - Symptoms have improved. Signatures: Dispatcher [employer] EDMS Kam Mai MD MD pkl Jenny Schroeder, RN RN Tiffany Greene RN RN ll2 Corrections: (The following items were deleted from the chart) 05:31 05:23 02/09/2020 05:23 Discharged to Home. Impression: Seizure. Condition is Stable. ll2 Forms are Medication Reconciliation Form, Thank You Letter, Antibiotic Education, Prescription Opioid Use. Follow up: Chalino Pollack; When: 2 - 3 days; Reason: Re-evaluation by your physician. Problem is new. Symptoms have improved. pkl
--- NOTE | 2020-02-09 05:24 | ER ---
Nurse's Notes [facility] Name: Tabatha Chambers Age: 54 yrs Sex: Female : 1965 Arrival Date: 02/09/2020 Time: 01:11 Bed 2 Private MD: Diagnosis: Seizure Presentation: 02/08 01:13 Chief complaint: EMS states: toned out by family after a witnessed seizure lasting ll2 approximately 60 seconds. upon arrival pt was awake, alert and oriented. states pt has a PMHX of seizures, and stopped taking pantoprozole in last 3 months, started taking hydroxizine and saw an increase in seizure activety. no known allergies, PMHX of seizures, panic attacks, anxiety, and past TIA. Coronavirus screen: Client denies travel out of the [place] in the last 14 days. At this time, the client does not indicate any symptoms associated with coronavirus-19. Ebola Screen: Patient negative for fever greater than or equal to 101.5 degrees Fahrenheit, and additional compatible Ebola Virus Disease symptoms. Initial Sepsis Screen: Does the patient meet any 2 criteria? No. Patient's initial sepsis screen is negative. Does the patient have a suspected source of infection? No. Patient's initial sepsis screen is negative. Risk Assessment: Do you want to hurt yourself or someone else? Patient reports no desire to harm self or others. Onset of symptoms was February 09, 2020. 01:13 Method Of Arrival: EMS: [facility] ll2 01:13 Acuity: VERO 4 ll2 Triage Assessment: 01:24 General: Appears in no apparent distress. Behavior is calm, cooperative, appropriate ll2 for age. Pain: Denies pain. EENT: No signs and/or symptoms were reported regarding the EENT system. Neuro: Level of Consciousness is awake, alert, obeys commands, Oriented to person, place, time, situation. Cardiovascular: Patient's skin is warm and dry. Respiratory: Airway is patent Respiratory effort is even, unlabored, Respiratory pattern is regular, symmetrical. GI: Reports nausea. : No signs and/or symptoms were reported regarding the genitourinary system. Derm: Skin is intact, is healthy with good turgor, Skin is dry, Skin is pink, warm \T\ dry. Skin temperature is warm. Musculoskeletal: Circulation, motion, and sensation intact. Range of motion: intact in all extremities. 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/2020 ll2 Historical: - Allergies: 01:24 No Known Allergies; ll2 - Home Meds: 01:24 albuterol sulfate 90 mcg/actuation Inhl HFAA 2 puffs every 4 hours for Bronchospasm ll2 Prevention [Active]; aspirin 81 mg Oral chew 1 tab once daily for Prevention of Transient Ischemic Attacks [Active]; Hydroxyzine Oral [Active]; folic acid 1 mg Oral tab 1 tab once daily for Folate Deficiency [Active]; lisinopril 20 mg Oral tab 1 tab once daily for Hypertension [Active]; melatonin 10 mg Oral cap nightly for sleep disorder [Active]; Vitamin B-12 500 mcg Oral lozg daily for Prevention of Vitamin B12 Deficiency [Active]; - Immunization history:: Adult Immunizations up to date. - Social history:: Smoking status: unknown. Screenin:36 Abuse screen: Denies threats or abuse. Nutritional screening: No deficits noted. ll2 Tuberculosis screening: No symptoms or risk factors identified. Fall Risk IV access (20 points). Ambulatory Aid- None/Bed Rest/Nurse Assist (0 pts). Gait- Normal/Bed Rest/Wheelchair (0 pts) Mental Status- Oriented to own ability (0 pts). Total Kim Fall Scale indicates No Risk (0-24 pts). Assessment: 01:36 Reassessment: see triage assessment. ll2 01:46 Reassessment: Pt taken to CT. ea Vital Signs: 01:26 BP 154 / 76; Pulse 81; Resp 15; Temp 98.3; Pulse Ox 98% on R/A; ll2 02:36 BP 131 / 73; Pulse 74; Resp 17; Temp 98; Pulse Ox 99% on R/A; ll2 04:00 BP 118 / 85; Pulse 72; Resp 19; Pulse Ox 99% on R/A; ll2 [place] Coma Score: 01:37 Eye Response: spontaneous(4). Verbal Response: oriented(5). Motor Response: obeys ll2 commands(6). Total: 15. ED Course: 01:11 Patient arrived in ED. ag3 01:12 Tiffany Somers RN is Primary Nurse. ll2 01:13 Kam Mai MD is Attending Physician. pkl 01:20 Triage completed. ll2 01:24 Initial lab(s) drawn, by me, sent to lab. Inserted saline lock: 20 gauge in left rv antecubital area, using aseptic technique. Blood collected. 01:36 No provider procedures requiring assistance completed. ll2 01:36 Patient has correct armband on for positive identification. Bed in low position. Call ll2 light in reach. Side rails up X2. Seizure precautions initiated. athletic monitor on. Pulse ox on. NIBP on. 01:37 Arm band placed on right wrist. ll2 02:08 CT Head Brain wo Cont In Process Unspecified. EDMS 05:23 Chalino Pollack MD is Referral Physician. pkl 05:29 IV discontinued, intact, bleeding controlled, No redness/swelling at site. Pressure ll2 dressing applied. Administered Medications: 01:35 Drug: NS 0.9% 1000 ml Route: IV; Rate: 125 ml/hr; Site: left antecubital; ll2 01:35 Drug: Zofran (Ondansetron) 4 mg Route: IVP; Site: left antecubital; ll2 02:46 Follow up: Response: No adverse reaction ea 02:46 Drug: NS 0.9% 1000 ml Route: IV; Rate: 1000 ml; Site: left antecubital; ea Outcome: 05:23 Discharge ordered by . pkl 05:28 Discharged to home ambulatory. ll2 05:28 Condition: stable 05:28 Discharge instructions given to patient, Instructed on discharge instructions, follow up and referral plans. Demonstrated understanding of instructions, follow-up care. 05:31 Patient left the ED. ll2 Signatures: Dispatcher [employer] EDMO Kam Mai MD MD pkJenny Cobb, RN RN Mikey Gomez, RN Cheryl Russo Lacie RN RN ll2
--- NOTE | 2020-02-10 09:28 | RAD REPORT ---
EXAM DESCRIPTION: CT - Head Brain Wo Cont - 02/09/2020 6:56 am CLINICAL HISTORY: SEIZURE TECHNIQUE: Contiguous axial CT images obtained through the brain without IV contrast. Coronal and sa gittal reformatted images were provided. This exam was performed according to our departmental dose-optimization program, which includes autom ated exposure control, adjustment of the mA and/or kV according to patient size and/or use of iterati ve reconstruction technique. COMPARISON: 07/04/2019 FINDINGS: Brain: No significant white matter changes. No focal mass effect. Hallman-white matter differ entiation is within normal limits. No hemorrhage. Ventricles: No ventriculomegaly or midline shift. Extra-axial spaces: No extra-axial collection or hemorrhage. Paranasal sinuses and mastoid air cells: Well-aerated Vessels: Unremarkable Bones: Unremarkable Soft tissues: Unremarkable IMPRESSION: No acute intracranial or extra-axial abnormality. 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 The interpreting radiologist is fully responsible for the content of the report.
--- NOTE | 2020-02-10 20:04 | EKG ---
Test Date: 2020-02-09 Test Time: 01:12:58 Carpet Technician: [place] MEASUREMENT RESULTS: Intervals: Rate: 87 OH: 158 QRSD: 72 QT: 360 QTc: 433 [place]: P: 43 OH: 158 QRS: 10 T: 33 INTERPRETIVE STATEMENTS: Normal sinus rhythm Normal ECG Compared to ECG 10/05/2019 00:23:33 Sinus bradycardia no longer present Electronically Signed On 02-10-20 20:01:46 YARN EXAMINER SKEINS by Iraj Lomas
[2020-02-14 16:28] VITALS: TEMP 98; O2SAT 99
[2020-02-14 16:29] VITALS: BP 118/85
== END 2020-02-09 05:31 | disposition home or self-care (01) ==
LOC: ER 01:07
DX: R56.9 Unspecified convulsions (principal); Z79.82 Long term (current) use of aspirin
CPT/HCPCS: 93005; 85025 ×2; 80048 ×2; 36415; 81025; 80307 ×8; 81003; 70450; 96374; 99284; J7030 ×2; J2405

== ENCOUNTER 2020-07-09 19:07 | Inpatient (IN) | payer OTHER ==
--- OUTSIDE RECORDS SUMMARY | 2020-07-09 19:10 | XMS REPORT | Continuity of Care Document ---
:1965 Author Organization [facility] t Address [address] [place] [address] Care Team Providers Name Role Phone Dick Ruiz MD Attending Clinician Doctor Unassigned, Name Attending Clinician Unavailable Luz Attending Clinician [phone] Nitin Attending Clinician Unavailable Jose Attending Clinician Unavailable Alec Attending Clinician Unavailable Janes Morse Attending Clinician Luz Unavailable [phone] Problems Condition Condition Condition Status Onset Resolution Last Treating Co mments Source Name Details Category Date Date Treatment Clinician Date ANXIETY Condition Active 2018-032019-02-14 Tricia Escobar DISORDER, 04-17 14:12:47 Deloris Com alexsandra UNSPECIFIE 00:00: ty D 00 Health SCHIZOAFFE Condition Active 2018-032019-02-14 Tico Escobar CTIVE 04-17 14:12:47 Deloris Commun i DISORDER, 00:00: ty DEPRESSIVE 00 Health TYPE, MULT EPIS, CURR ACUTE EPIS Drug Problem Active 2017-07-12 Ericor ia therapy 15:36:56 l finding Drug Ede (finding) therapy finding (finding) Active Problem 07/12/2017 Medical Group Schizophre Problem Active 2017-07-12 M emoria theo 15:36:56 l (disorder) George zhou Schizophre theo (disorder) Active Problem 07/12/2017 Medical Group Seen by Problem Active 2017-07-12 Jefferson ford counsellor 15:36:56 l (finding) Seen by Brooke gong counsellor (finding) Active Problem 07/12/2017 Medical Group Anxiolytic Problem Active 2017-07-12 M emoria dependence 15:36:56 l (disorder) George n Anxiolytic dependence (disorder) Active Problem 07/12/2017 Medical Group Benzodiaze Problem Resolve 2016-2017-07-12 2017-07-12 Sunitha munson [...] a divorce. Five kids Not homeless. City: [place] . lives with daughter Highest education level: none-8th grade. unemployed dropped out in 7th grade got ged in 1988Sex at : Female. Sexual orientation: Heterosexual. Gender identity: Female. drug use, illicit 2019-02-14 2019-02-14 Previously [facility] 13:01:12 13:01:12 Health alcohol use 2019-02-14 2019-02-14 [facility] 13:01:12 13:01:12 Health sexual orientation 2019-02-14 2019-02-14 [facility] 13:01:12 13:01:12 Health sex at [...] kids social history 2019-02-14 2019-02-14 reviewed today [facility] reviewed E&M 13:01:12 13:01:12 Health Social History 2016-12-07 2016-12-07 [facility] brian 16:49:19 16:49:19 Smoking Status Start Date Stop Date Source Ex-smoker (finding) 2019-02-14 13:01:12 2019-02-14 13:01:12 [facility] Medications Ordered Filled Start Stop Current Ordering [...] Diagnostic evaluation with 2019-02-14 14:55:13 Deloris Escobar [facility] - [id number] Health Operation 2003-03-08 00:00:00 [facility] Cholecystectomy 2000-03-08 00:00:00 [facility] Encounters Start End Encounter Admission Attending Care Care Encounter Source Date/Time Date/Time Type Type Clinicians Facility Department ID 2020-02-12 2020-02-13 Emergency [facility] [id number] 19:02:00 00:09:00 Jodie Lowery [id number] [place] [id number] [place] [id number] 2019-10-09 2019-10-09 Orders Doctor BURLESON [id number] 00:00:00 00:00:00 Only Unassigned, LAWRENCE [id number] Frederica [facility] [id number] 2019-02-14 2019-02-14 Office Deloris Escobar [facility] [place] En counter/ [facility] 00:00:00 00:00:00 Visit Nitin Shellyambrose Buckley [id number] 102 [facility] [id number] [facility] 2018-09-23 2018-09-23 Office Antonietta Garcia [facility] Legacy En counter/ [facility] 00:00:00 00:00:00 Visit Sarika [facility] [id number] [facility] [id number] [facility] Health Contact [place] 2018-09-23 2018-09-23 Office Alec [facility] Legacy Encoun ter/ [facility] 00:00:00 00:00:00 Visit Sarika [facility] [id number] [facility] [id number] [facility] Health Contact [place] 2017-04-05 2017-04-05 Outpatient Morse, MG [facility] [id number] 11:15:00 11:15:00 Gail N 02 2017-03-26 2017-03-26 Outpatient Morse, MG [facility] [id number] 15:15:00 15:15:00 Gail N 01 Results This patient has no known results.
[2020-07-09 20:21] LABS: Absolute Lymphocytes (CBC) 1.9 K/uL (0.7-4.9); Basophils % 0.5 % (0-1.3); Hematocrit 29.6 % (36.0-45.0); Lymphocytes % 25.4 % (15.3-44.8); MPV 7.7 fL (7.6-11.3); RBC Red Blood Cell Count 3.52 M/uL (3.86-4.86)
[2020-07-09 20:25] LABS: Protime INR 1.04
[2020-07-09 20:33] LABS: Urine Blood Negative (Negative); Urine Glucose Negative (Negative); Urine Protein Negative (Negative); Urine Specific Gravity 1.025 (1.005-1.030); Urine pH 5.5 (5.0-7.0)
[2020-07-09 20:35] LABS: ALT/SGPT 18 U/L (12-78); AST/SGOT 11 U/L (15-37); Albumin 3.4 g/dL (3.4-5.0); Alkaline Phosphatase 77 U/L (45-117); BUN Blood Urea Nitrogen 55 mg/dL (7-18); Bicarbonate 19 mmol/L (21-32); Bilirubin Direct 0.1 mg/dL (0-0.2); Bilirubin Total 0.4 mg/dL (0.2-1.0); Glucose Level 111 mg/dL (74-106); Protein, Total 7.1 g/dL (6.4-8.2); Sodium Level 134 mmol/L (136-145)
[2020-07-09] MEDS ORDERED: NALOXONE HCL 2 MG/2 ML VIAL ONE (20:37)
[2020-07-09] MEDS ORDERED: NA CHLORIDE 0.9% 1,000 ML ONE ×2 (20:37→23:25)
[2020-07-09 20:50] LABS: Potassium 6.2 mmol/L (3.5-5.1)
[2020-07-09 20:51] LABS: Barbiturates NEGATIVE (NEGATIVE); Benzodiazepines POSITIVE (NEGATIVE); Cocaine NEGATIVE (NEGATIVE); METHAMPHETAM NEGATIVE (NEGATIVE); Methadone NEGATIVE (NEGATIVE); Opiates NEGATIVE (NEGATIVE); Phencyclidine NEGATIVE (NEGATIVE); THC Cannibis NEGATIVE (NEGATIVE)
[2020-07-09 21:49] LABS: Creatine Phosphokinase 68 U/L (26-192)
--- NOTE | 2020-07-09 22:04 | EDPHYS ---
Physician Documentation [facility] Name: Tabatha Chambers Age: 54 yrs Sex: Female : 1965 Arrival Date: 07/09/2020 Time: 19:31 Bed 26 Private MD: ED Physician Darian Pate HPI: 07/09 19:32 This 54 yrs old Female presents to ER via Unassigned with complaints of AMS, rn possible overdose. 19:32 The patient presents with decreased responsiveness. Onset: The symptoms/episode rn began/occurred at an unknown time. Possible causes: drug use. Associated signs and symptoms: Pertinent negatives: abdominal pain, chest pain, seizure. Current symptoms: In the emergency department the patient's symptoms have improved. The patient has experienced similar episodes in the past. It is unknown whether or not the patient has recently seen a physician. Per EMS, family called for decreased responsiveness, reports well known to take benzos and opioids, told them that dog ate her suboxone, and they suspect that she is getting drugs from the street. Given 2mg narcan with mild improvement. . 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: 07/10 00:00 LMP N/A - Unknown wh Historical: - Allergies: 00:40 No Known Allergies; bb - Home Meds: 00:40 albuterol sulfate 90 mcg/actuation Inhl HFAA 2 puffs every 4 hours for Bronchospasm bb Prevention [Active]; aspirin 81 mg Oral chew 1 tab once daily for Prevention of Transient Ischemic Attacks [Active]; folic acid 1 mg Oral tab 1 tab once daily for Folate Deficiency [Active]; Hydroxyzine Oral [Active]; lisinopril 20 mg Oral tab 1 tab once daily for Hypertension [Active]; melatonin 10 mg Oral cap nightly for sleep disorder [Active]; Vitamin B-12 500 mcg Oral lozg daily for Prevention of Vitamin B12 Deficiency [Active]; - PMHx: 00:40 Seizures; Hypertension; bb - Immunization history:: Adult Immunizations. - Social history:: Smoking status: unknown. - Family history:: not pertinent. - Hospitalizations: : No recent hospitalization is reported. ROS: 07/09 19:32 Unable to obtain ROS due to altered mental status. rn Exam: 19:32 Constitutional: Somnolent, awakens to stimuli and pain Head/Face: Normocephalic, rn atraumatic. Eyes: Pupils 3mm, reactive, no nystagmus Cardiovascular: Regular rate and rhythm. No pulse deficits. Respiratory: No increased work of breathing, no retractions or nasal flaring. Abdomen/GI: soft, non-tender Skin: Warm, dry MS/ Extremity: Pulses equal, no cyanosis. Neuro: Somnolent but awakens and speaks, slurred speech, moves all 4 extremities. Protecting airway currently. Vital Signs: 19:45 BP 148 / 93; Pulse 135; Resp 10 S; Temp 97.3(A); Pulse Ox 96% on R/A; Weight 113.4 kg bb (R); 20:00 BP 98 / 63; Pulse 53; Resp 14; Pulse Ox 100% on R/A; wh 21:00 BP 95 / 68; Pulse 54; Resp 14; Pulse Ox 100% on R/A; wh 22:00 BP 102 / 54; Pulse 54; Resp 16; Pulse Ox 100% ; 23:00 BP 96 / 61; Pulse 62; Resp 16; Pulse Ox 100% on R/A; 07/10 00:00 BP 102 / 66; Pulse 58; Resp 16; Pulse Ox 100% ; MDM: 07/09 19:31 Patient medically screened. rn 22:01 Differential Diagnosis: hypoglycemia, overdose, UTI, volume depletion. Data reviewed: rn vital signs, nurses notes, lab test result(s), EKG, and as a result, I will admit patient. Counseling: I had a detailed discussion with the patient and/or guardian regarding: the historical points, exam findings, and any diagnostic results supporting the discharge/admit diagnosis, lab results, the need for further work-up and treatment in the hospital. Response to treatment: There is no appreciated change of the patient's symptoms at this time, and as a result, I will admit patient. Admission orders: after a detailed discussion of the patient's condition and case, the admit orders are written by me. ED course: Pt with suspected benzo overdose, currently protecting airway, hesitant to give flumazenil given skilled nursing use of benzos in patient and likely precipitate abrupt withdrawal/seizure. + MARLENA with acidosis and hyperkalemia, will admit to hospitalist service for further care. Insulin/d50/bicarb given, not awake enough for kayexalate. . 07/09 19:32 Order name: Acetaminophen rn 07/09 19:32 Order name: Basic Metabolic Panel; Complete Time: 22:00 rn 07/09 19:32 Order name: CBC with Diff; Complete Time: 21:25 rn 07/09 19:32 Order name: ETOH Level; Complete Time: 21:25 rn 07/09 19:32 Order name: Hepatic Function; Complete Time: 22:00 rn 07/09 19:32 Order name: PT-INR; Complete Time: 21:25 rn 07/09 19:32 Order name: Ptt, Activated; Complete Time: 21:25 rn 07/09 19:32 Order name: Salicylate; Complete Time: 21:43 rn 07/09 19:32 Order name: Urine Drug Screen; Complete Time: 21:25 rn 07/09 19:33 Order name: Acetaminophen Level; Complete Time: 22:00 EDMS 07/09 20:32 Order name: Urine Dipstick-Ancillary; Complete Time: 21:25 EDMS 07/09 21:38 Order name: Creatine Phosphokinase; Complete Time: 22:00 EDMS 07/10 00:13 Order name: COVID-19 : Document "Date of Symptom Onset" if Symptomatic. wh 07/10 00:57 Order name: Basic Metabolic Panel; Complete Time: 01:00 EDMS 07/10 01:47 Order name: CORONAVIRUS EDMS 07/10 03:18 Order name: SARS-COV-2 RT PCR EDMS 07/10 08:01 Order name: Glucose, Ancillary Testing EDMS 07/10 10:23 Order name: CBC with Automated Diff EDMS 07/10 10:35 Order name: Comprehensive Metabolic Panel EDMS 07/10 10:35 Order name: Phosphorus EDMS 07/10 10:35 Order name: Magnesium EDMS 07/10 12:40 Order name: Glucose, Ancillary Testing EDMS 07/10 16:01 Order name: Glucose, Ancillary Testing EDMS 07/10 18:23 Order name: Glucose, Ancillary Testing EDMS 07/10 20:58 Order name: Glucose, Ancillary Testing EDMS 07/11 06:04 Order name: Iron EDMS 07/11 06:04 Order name: Transferrin Sat/Iron Binding EDMS 07/11 06:05 Order name: Folic Acid, (Folate) EDMS 07/11 06:05 Order name: Vitamin B12 Level EDMS 07/09 19:32 Order name: EKG; Complete Time: 19:33 rn 07/09 19:32 Order name: EKG - Nurse/Tech; Complete Time: 20:38 rn 07/09 19:32 Order name: IV Saline Lock; Complete Time: 20:26 rn 07/09 19:32 Order name: Labs collected and sent; Complete Time: 20:26 rn 07/09 19:32 Order name: Suicide Screening ([place]); Complete Time: 05:49 rn 07/09 19:32 Order name: Urine Dipstick-Ancillary (obtain specimen); Complete Time: 19:49 rn 07/09 19:32 Order name: Glucose Level; Complete Time: 20:48 rn 07/09 22:05 Order name: [place]; Complete Time: 22:33 rn 07/09 23:48 Order name: CONS Physician Consult [facility] 07/10 07:37 Order name: Diet Regular; Complete Time: 07:37 [facility] 07/10 07:38 Order name: Diet Renal; Complete Time: 07:38 [facility] 07/11 09:24 Order name: Glucose, Ancillary Testing [facility] 07/11 12:22 Order name: Glucose, Ancillary Testing [facility] 07/11 16:52 Order name: Glucose, Ancillary Testing [facility] 07/11 20:05 Order name: Basic Metabolic Panel [facility] 07/11 21:28 Order name: Glucose, Ancillary Testing [facility] Administered Medications: 20:35 Drug: NS 0.9% 1000 ml Route: IV; Rate: 125 ml/hr; Site: left antecubital; 07/10 00:12 Follow up: Response: No adverse reaction; IV Status: Infusion continued upon admission 07/09 20:37 Drug: NARcan (naloxone) 2 mg Route: IVP; Site: left antecubital; 07/10 00:12 Follow up: Response: No adverse reaction 07/09 21:43 Drug: D50W 50 ml Route: IVP; Site: left antecubital; 07/10 00:12 Follow up: Response: No adverse reaction 07/09 21:45 Drug: Insulin Regular Human 5 units {Co-Signature: [email or web address] (Gavin Chávez RN).} Route: IVP; Site: left antecubital; 07/10 00:12 Follow up: Response: No adverse reaction 07/09 21:47 Drug: Sodium Bicarbonate 1 amp Route: IVP; Site: left antecubital; 07/10 00:11 Follow up: Response: No adverse reaction 07/09 22:25 Drug: NS 0.9% 1000 ml Route: IV; Rate: 1000 ml; Site: left antecubital; 07/10 00:12 Follow up: Response: No adverse reaction; IV Status: Completed infusion 01:21 Drug: D50W 50 ml Route: IVP; Site: left antecubital; 02:24 Follow up: Response: No adverse reaction 01:23 Drug: D5-NS 1000 ml Route: IV; Rate: 125 ml/hr; Site: left antecubital; 02:24 Follow up: Response: No adverse reaction; IV Status: Completed infusion 02:15 Drug: D50W 50 ml Route: IVP; Site: left antecubital; 04:25 Follow up: Response: No adverse reaction 02:17 Drug: Insulin Regular Human 5 units {Co-Signature: [email or web address] (Gavin Chávez RN).} Route: IVP; Site: left antecubital; 04:25 Follow up: Response: No adverse reaction 02:19 Drug: Sodium Bicarbonate 1 amp Route: IVP; Site: left antecubital; 04:25 Follow up: Response: No adverse reaction 02:21 Drug: Calcium Gluconate 1 grams Route: IVPB; Infused Over: 60 mins; Site: left antecubital; 04:26 Follow up: Response: No adverse reaction; IV Status: Completed infusion Disposition: 07/09/20 22:04 Hospitalization ordered by Gavin Crum for Inpatient Admission. Preliminary diagnosis are Adverse effect of benzodiazepines, Acute kidney failure, Acidosis, Hyperkalemia. - Bed requested for [facility] ER HOLD. - Status is Inpatient Admission. iw - Condition is Stable. - Problem is new. - Symptoms are unchanged. Signatures: Dispatcher [employer] Clarisse Wang RN RN bb Williams, Irene, RN RN iw Nieto, Roman, MD MD rn Garcia, Cindy, RN RN cg Habalo, Winsy, RN RN Gavin Chávez RN [email or web address] Corrections: (The following items were deleted from the chart) 07/09 21:38 21:28 CREATINE PHOSPHOKINASE+C.LAB.BRZ ordered. EDMS EDMS 23:37 22:04 Hospitalization Ordered by Gavin Crum for Inpatient Admission. Preliminary cg diagnosis is Adverse effect of benzodiazepines; Acute kidney failure; Acidosis; Hyperkalemia. Bed requested for Intensive Care Unit. Status is Inpatient Admission. Condition is Stable. Problem is new. Symptoms are unchanged. rn 07/12 00:34 05 23:37 07/09/2020 22:04 Hospitalization Ordered by Gavin Crum for Inpatient iw Admission. Preliminary diagnosis is Adverse effect of benzodiazepines; Acute kidney failure; Acidosis; Hyperkalemia. Bed requested for [facility] ER HOLD. Status is Inpatient Admission. Condition is Stable. Problem is new. Symptoms are unchanged. cg
[2020-07-09] MEDS ORDERED: INSULIN -REGULAR HUMAN 50 UNIT/0.5 ML ML ONE (22:19)
[2020-07-09] MEDS ORDERED: SODIUM BICARB 50 MEQ/50ML VIAL ONE (22:20)
[2020-07-09] MEDS ORDERED: D50W 50 ML IV ONE (22:20)
[2020-07-10] MEDS: NA CHLORIDE 0.9% 1,000 ML IV SCH ×3 (00:08→20:08)
[2020-07-10] MEDS ORDERED: ONDANSETRON 4 MG/2 ML VIAL IV PRN (00:08)
[2020-07-10] MEDS: HEPARIN 5000 UNIT/ML 1 ML VIAL SQ SCH ×3 (00:14→17:00)
[2020-07-10] MEDS ORDERED: HEPARIN 5000 UNIT/ML 1 ML VIAL ONE ×3 (00:36→18:30)
[2020-07-10 00:57] LABS: Potassium 5.6 mmol/L (3.5-5.1)
[2020-07-10] MEDS ORDERED: GLUCAGON 1 MG/VIAL IM PRN (01:12)
[2020-07-10] MEDS ORDERED: D50W 25 GM/50 ML SYRINGE IV PRN (01:12)
[2020-07-10] MEDS ORDERED: CALCIUM GLUC 10% INJ 4.65 MEQ in NA CHLORIDE 0.9% 100 ML IV ONE (01:19)
[2020-07-10] MEDS ORDERED: D50W 50 ML IV ONE (01:24)
[2020-07-10] MEDS ORDERED: D5 0.9 NS 1,000 ML IV ONE (01:25)
[2020-07-10] MEDS ORDERED: INSULIN -REGULAR HUMAN 50 UNIT/0.5 ML ML ONE (02:21)
--- NOTE | 2020-07-10 02:21 | P.HP ---
Certification for Inpatient Patient admitted to: Inpatient With expected LOS: >2 Midnights Patient will require the following post-hospital care: None Practitioner: I am a practitioner with admitting privileges, knowledge of patient current condition, hospital course, and medical plan of care. Services: Services provided to patient in accordance with Admission requirements found in Title 42 Section 412.3 of the Code of Federal Regulations Patient History Date of Service: 07/09/20 Reason for admission: benzodiazepine overdose, MARLENA History of Present Illness: Ms. Chambers is a 54 yo female with bipolar disorder, history of tremors and substance use disorder here today for benzodiazepine overdose. She was brought in by EMS. She is sedated, but responds to stimuli. Per family, she ran out of her benzodiazepines and has been buying drugs off of the street. Endorses SI, denies HI. Vitals are stable. UDS + for benzodiazepines. Hgb 9.9. Na 134. K 6.2. Cl 108. HCO3 19. BUN 55. Cr 2.21. GFR 23. Glu 111. Ca2+ 7.8. Allergies No Known Drug Allergies Allergy (Verified 08/06/18 03:49) Unknown Home Medications: Aspirin [Aspirin EC 81 MG] 81 mg DAILY 07/04/19 Atorvastatin Calcium 20 tab DAILY 07/04/19 Buprenorphine HCl/Naloxone HCl [Suboxone 2 mg-0.5 mg Sl Film] 2 film SL TID 07/04/19 Cetirizine HCl [Allergy Relief] 10 mg PO DAILY 07/04/19 Cyanocobalamin (Vitamin B-12) [Vitamin B12] 2,500 mcg DAILY 07/04/19 Folic Acid 1 mg PO DAILY 07/04/19 Melatonin 10 mg PO BEDTIME 07/04/19 Pantoprazole Sodium 40 tab DAILY WITH BREAKFAST 07/04/19 Propranolol [Inderal*] 10 mg PO TID 07/04/19 Quetiapine Fumarate [Seroquel] 100 tab BEDTIME 07/04/19 Ropinirole HCl 2 tab BID 07/04/19 Tizanidine [Zanaflex*] 4 tab BIDPC 07/04/19 lisinopriL [Lisinopril] 20 tab DAILY 07/04/19 Amox/Clavulanate [Augmentin 875-125 Tab] 1 each PO BID #12 tab 07/05/19 levETIRAcetam [Keppra*] 500 mg PO BID #60 tab 07/05/19 - Past Medical/Surgical History Diabetic: No -: schizophrenia -: bipolar -: htn -: tubal ligation -: left ankle -: ectopic - Family History Mother -: Hypertension, Diabetes, Stroke - Social History Smoking Status: Unknown if ever smoked Alcohol use: No CD- Drugs: No Caffeine use: No Place of Residence: Home Review of Systems is unable to be obtained Physical Examination - Physical Exam General: Unresponsive HEENT: Atraumatic, Normocephalic, Mucous membr. moist/pink, Sclerae nonicteric Neck: Supple, 2+ carotid pulse no bruit, JVD not distended, No Thyromegaly, No LAD Respiratory: Clear to auscultation bilaterally, Normal air movement Cardiovascular: No edema, Normal pulses, Regular rate/rhythm, Normal S1 S2, No gallops, No rubs, No murmurs Capillary refill: <2 Seconds Gastrointestinal: Normal bowel sounds, Soft and benign, Non-distended, No ascites, No tenderness, No masses, No rebound, No guarding Musculoskeletal: No clubbing, No swelling, No contractures, No erythema, No tenderness, No warmth Integumentary: No rashes, No breakdown, No significant lesion, No tenderness/swelling, No erythema, No warmth, No cyanosis Neurological: Abnormal affect Lymphatics: No axilla or inguinal lymphadenopathy Urinary: Dunaway catheter - Studies Laboratory Data (last 24 hrs) 07/09/20 20:10: PT 12.0, INR 1.04, APTT 35.7 07/09/20 20:10: WBC 7.30, Hgb 9.9 L, Hct 29.6 L, Plt Count 230 07/09/20 20:10: Sodium 134 L, Potassium 6.2 H*, BUN 55 H, Creatinine 2.21 H, Glucose 111 H, Total Bilirubin 0.4, AST 11 L, ALT 18, Alkaline Phosphatase 77 Assessment and Plan - Problems (Diagnosis) (1) MARLENA (acute kidney injury) Current Visit: Yes Status: Acute (2) Hyperkalemia Current Visit: Yes Status: Acute (3) Benzodiazepine (tranquilizer) overdose Current Visit: Yes Status: Acute Qualifiers: Encounter type: initial encounter Injury intent: intentional self-harm Qualified Code(s): T42.4X2A - Poisoning by benzodiazepines, intentional self- harm, initial encounter (4) Hypocalcemia Current Visit: Yes Status: Acute (5) Anemia Current Visit: Yes Status: Chronic Qualifiers: Anemia type: unspecified type Qualified Code(s): D64.9 - Anemia, unspecified (6) Bipolar disorder Current Visit: No Status: Chronic Qualifiers: Active/Remission status: remission status unspecified Qualified Code(s): F31.9 - Bipolar disorder, unspecified (7) Essential tremor Current Visit: No Status: Chronic (8) Obesity Current Visit: No Status: Chronic Qualifiers: Obesity type: unspecified obesity type Obesity classification: unspecified obesity classification Serious obesity comorbidity presence: unspecified whether serious comorbidity present Qualified Code(s): E66.9 - Obesity, unspecified (9) Schizophrenia Current Visit: No Status: Chronic Qualifiers: Schizophrenia type: unspecified Qualified Code(s): F20.9 - Schizophrenia, unspecified (10) Seizures Current Visit: No Status: Chronic - Plan nephrology consulted K+ improved with initiation of insulin, however had episode of hypoglycemia so now received D5NS. repeat insulin, amp of glucose and bicarb given. repeat BMP at 5am. continue telemetry. amp of calcium gluconate given. continue IVF, continue to monitor glucose and K+ respirations stable, airway protected, RT consulted, PRN O2 currently on 1to1 due to SI, will likely need psych evaluation before discharge reconcile and continue home medications when alert, advance diet as tolerated iron panel, folate, b12 pending Discharge Plan: Psychiatry Plan to discharge in: 48 Hours - Advance Directives Does patient have a Living Will: No Does patient have a Durable POA for Healthcare: No - Code Status/Comfort Care Code Status Assessed: Yes (full code) Critical Care: No Time Spent Managing Pts Care (In Minutes): 70
[2020-07-10] MEDS ORDERED: D50W 25 GM/50 ML SYRINGE IV ONE (02:22)
[2020-07-10] MEDS ORDERED: SODIUM BICARB 50 MEQ/50ML VIAL ONE (02:22)
[2020-07-10] MEDS ORDERED: CALCIUM GLUCONATE 1 GM IVPB 1 GM/50 ML BAG IV ONE (02:23)
[2020-07-10 04:28] VITALS: BMI 41.5
[2020-07-10] MEDS: INSULIN -REGULAR HUMAN 50 UNIT/0.5 ML ML SQ SCH ×4 (07:30→20:50)
--- NOTE | 2020-07-10 08:58 | P.CNS ---
Date of Consult: 07/10/20 Reason for Consult: MARLENA Requesting Physician: jamaal vazquez Chief Complaint: benzodiazepine overdose, MARLENA History of Present Illness: Ms. Chambers is a 54 yo female with bipolar disorder, history of tremors and substance use disorder here today for benzodiazepine overdose. She was brought in by EMS. She is sedated, but responds to stimuli. Per family, she ran out of her benzodiazepines and has been buying drugs off of the street. Endorses SI, denies HI. Vitals are stable. UDS + for benzodiazepines. 19:32 This 54 yrs old Female presents to ER via Unassigned with complaints of AMS, rn possible overdose. 19:32 The patient presents with decreased responsiveness. Onset: The symptoms/episode rn began/occurred at an unknown time. Possible causes: drug use. Associated signs and symptoms: Pertinent negatives: abdominal pain, chest pain, seizure. Current symptoms: In the emergency department the patient's symptoms have improved. The patient has experienced similar episodes in the past. It is unknown whether or not the patient has recently seen a physician. Per EMS, family called for decreased responsiveness, reports well known to take benzos and opioids, told them that dog ate her suboxone, and they suspect that she is getting drugs from the street. Given 2mg narcan with mild improvement. Allergies No Known Drug Allergies Allergy (Verified 07/10/20 04:29) Unknown Home medications list reviewed: Yes Home Medications: Aspirin [Aspirin EC 81 MG] 81 mg DAILY 07/04/19 Atorvastatin Calcium 20 tab DAILY 07/04/19 Buprenorphine HCl/Naloxone HCl [Suboxone 2 mg-0.5 mg Sl Film] 2 film SL TID 07/04/19 Cetirizine HCl [Allergy Relief] 10 mg PO DAILY 07/04/19 Cyanocobalamin (Vitamin B-12) [Vitamin B12] 2,500 mcg DAILY 07/04/19 Propranolol [Inderal*] 10 mg PO TID 07/04/19 Quetiapine Fumarate [Seroquel] 100 tab BEDTIME 07/04/19 Ropinirole HCl 1 tab BID 07/04/19 Tizanidine [Zanaflex*] 4 tab PO BIDPC 07/04/19 lisinopriL [Lisinopril] 20 tab DAILY 07/04/19 Divalproex Sodium [Depakote] 500 mg PO BID 07/11/20 - Past Medical/Surgical History Diabetic: No -: schizophrenia -: bipolar -: htn -: tubal ligation -: left ankle -: ectopic - Family History Mother Medical History: Hypertension, Diabetes, Stroke - Social History Smoking Status: Unknown if ever smoked Alcohol use: No CD- Drugs: No Caffeine use: No Place of Residence: Home Review of Systems 10-point ROS is otherwise unremarkable General: Weakness, Malaise, Other (Anxious) Musculoskeletal: Other (Trunk pain) Physical Examination Temp Pulse Resp BP Pulse Ox 97.6 F 102 H 18 138/38 L 100 07/10/20 04:00 07/10/20 08:00 07/10/20 08:00 07/10/20 08:00 07/10/20 08:00 General: Oriented x3, Cooperative, Mild distress HEENT: Atraumatic, Normocephalic Neck: Supple Respiratory: Clear to auscultation bilaterally Cardiovascular: Regular rate/rhythm, Edema Gastrointestinal: Soft and benign, Non-distended Musculoskeletal: No clubbing, No contractures Integumentary: No cyanosis Neurological: Normal speech Laboratory Data (last 24 hrs) 07/09/20 20:10: PT 12.0, INR 1.04, APTT 35.7 07/09/20 20:10: WBC 7.30, Hgb 9.9 L, Hct 29.6 L, Plt Count 230 07/09/20 20:10: Sodium 134 L, Potassium 6.2 H*, BUN 55 H, Creatinine 2.21 H, Glucose 111 H, Total Bilirubin 0.4, AST 11 L, ALT 18, Alkaline Phosphatase 77 Conclusions/Impression: MARLENA improving with IVF CKD III -Continue NS -Encourage nutrition and hydration Hyponatremia -Continue NS Hyperkalemia -Kayexalate X3 NAG Acidosis likely due to MARLENA Hypocalcemia -Continue Vitamin D HTN, variable Anemia in chronic illness -Monitor H&H Case reviewed with Dr. Vazquez Thank you kindly for the consultation.
[2020-07-10] MEDS ORDERED: NA CHLORIDE 0.9% 1,000 ML ONE (09:29)
[2020-07-10 10:19] LABS: Absolute Lymphocytes (CBC) 1.9 K/uL (0.7-4.9); Basophils % 0.5 % (0-1.3); Hematocrit 36.7 % (36.0-45.0); Lymphocytes % 18.4 % (15.3-44.8); MPV 7.8 fL (7.6-11.3); RBC Red Blood Cell Count 4.39 M/uL (3.86-4.86)
[2020-07-10 10:33] LABS: Albumin 3.7 g/dL (3.4-5.0); Bilirubin Total 0.4 mg/dL (0.2-1.0); Magnesium 1.8 mg/dL (1.8-2.4); Phosphorus 3.1 mg/dL (2.5-4.9); Potassium 5.1 mmol/L (3.5-5.1); Protein, Total 7.6 g/dL (6.4-8.2)
[2020-07-10] MEDS: SOD POLYSTYREN SUL 15 GM/60 ML UCUP PO SCH ×3 (11:00→17:00)
[2020-07-10] MEDS ORDERED: SOD POLYSTYREN SUL 15 GM/60 ML UCUP ONE ×3 (12:13→18:30)
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
[2020-07-10] MEDS: ACETAMINOPHEN 500 MG TAB PO PRN (20:42)
[2020-07-10] MEDS ORDERED: ACETAMINOPHEN 500 MG TAB ONE (21:00)
[2020-07-11] MEDS: HEPARIN 5000 UNIT/ML 1 ML VIAL SQ SCH (01:00)
[2020-07-11] MEDS ORDERED: HEPARIN 5000 UNIT/ML 1 ML VIAL ONE ×2 (01:52→09:57)
[2020-07-11 06:01] LABS: Folic Acid, (Folate) > 20.0 ng/mL (3.1-17.5); Transferrin 193 mg/dL (200-360)
[2020-07-11] MEDS: NA CHLORIDE 0.9% 1,000 ML IV SCH (06:08)
--- NOTE | 2020-07-11 07:22 | EKG ---
Test Date: 2020-07-09 Test Time: 19:56:07 [employer] Inspector And Tester: MEASUREMENT RESULTS: Intervals: Rate: 58 IN: 186 QRSD: 84 QT: 424 QTc: 416 [place]: P: 63 IN: 186 QRS: 29 T: 46 INTERPRETIVE STATEMENTS: Sinus bradycardia Otherwise normal ECG Compared to ECG 02/09/2020 01:12:58 Sinus rhythm no longer present Electronically Signed On 07-11-20 07:18:28 CDT by Iraj Lomas
[2020-07-11] MEDS: INSULIN -REGULAR HUMAN 50 UNIT/0.5 ML ML SQ SCH ×4 (07:30→21:00)
[2020-07-11] MEDS ORDERED: CALCITROL 0.25 MCG CAP PO SCH (09:00)
[2020-07-11] MEDS ORDERED: VITAMIN D 5,000 UNIT CAP PO SCH (09:00)
--- NOTE | 2020-07-11 19:04 | P.PN ---
Subjective Date of Service: 07/11/20 Chief Complaint: benzodiazepine overdose, MARLENA Patient is awake and alert. She has no new complain. She has been seen by psychiatry-Dr. Young and she is willing to go to inpatient psychiatry. No agitation. Physical Examination - Vital Signs Temperature: 98.2 F Blood Pressure: 117/88 Pulse: 107 Respirations: 16 Pulse Ox (%): 99 - Physical Exam General: Alert, In no apparent distress HEENT: Mucous membr. moist/pink Neck: JVD not distended Respiratory: Clear to auscultation bilaterally, Normal air movement Cardiovascular: No edema, Regular rate/rhythm, Normal S1 S2, No murmurs Gastrointestinal: Normal bowel sounds, Soft and benign, No tenderness Musculoskeletal: No swelling Integumentary: No rashes Neurological: Normal strength at 5/5 x4 extr Assessment And Plan - Current Problems (Diagnosis) (1) Benzodiazepine (tranquilizer) overdose Current Visit: Yes Status: Acute Qualifiers: Encounter type: initial encounter Injury intent: intentional self-harm Qualified Code(s): T42.4X2A - Poisoning by benzodiazepines, intentional self- harm, initial encounter (2) Hyperkalemia Current Visit: Yes Status: Acute (3) Bipolar disorder Current Visit: No Status: Chronic Qualifiers: Active/Remission status: remission status unspecified Qualified Code(s): F31.9 - Bipolar disorder, unspecified (4) Essential tremor Current Visit: No Status: Chronic (5) Schizophrenia Current Visit: No Status: Chronic Qualifiers: Schizophrenia type: unspecified Qualified Code(s): F20.9 - Schizophrenia, unspecified (6) Seizures Current Visit: No Status: Chronic (7) Acute worsening of stage 3 chronic kidney disease Current Visit: Yes Status: Acute - Plan Hyperkalemia resolved. MARLENA improved Continue IV hydration. Continue one-to-one suicide watch. Patient seen by psychiatry who recommended inpatient psych admission. She is clinically stable for transfer Continue Seroquel and other psych medications. Continue antiseizure medications. Monitor renal panel to follow MARLENA and potassium. Nephrology is following renal insufficiency.
[2020-07-11 19:57] LABS: Potassium 4.6 mmol/L (3.5-5.1)
[2020-07-11] MEDS ORDERED: DIVALPROEX DR 500MG TAB PO SCH (21:00)
[2020-07-11] MEDS ORDERED: ROPINIROLE HCL 1 MG TAB PO SCH (21:00)
[2020-07-11] MEDS ORDERED: QUETIAPINE 100MG TAB PO SCH (21:00)
[2020-07-11] MEDS ORDERED: DIVALPROEX DR 250 MG TAB PO ONE (21:09)
--- NOTE | 2020-07-11 21:18 | P.PN ---
Date of Service: 07/11/20 Vital Signs Temp Pulse Resp BP Pulse Ox 98.2 F 107 H 16 117/88 99 07/11/20 19:04 07/11/20 19:04 07/11/20 19:04 07/11/20 19:04 07/11/20 19:04 Medications Acetaminophen (Acetaminophen 500 Mg Tab) 500 mg PO Q4HP PRN PRN Reason: Pain scale 2-4 (Mild) Last Admin: 07/10/20 20:42 Dose: 500 mg Documented by: Aspirin (Aspirin Ec 81 Mg Tab) 81 mg PO DAILY [facility] Atorvastatin Calcium (Atorvastatin 20 Mg Tab) 400 mg PO DAILY [facility] Calcitriol (Calcitrol 0.25 Mcg Cap) 0.5 mcg PO DAILY [facility] Last Admin: 07/11/20 09:00 Dose: 0.5 mcg Documented by: Cetirizine HCl (Cetirizine Hcl 5 Mg Tablet) 10 mg PO DAILY [facility] Cholecalciferol (Vitamin D 5,000 Unit Cap) 5,000 unit PO DAILY [facility] Last Admin: 07/11/20 09:00 Dose: 5,000 unit Documented by: Dextrose (D50w 25 Gm/50 Ml Syringe) 12.5 gm IV PRN PRN PRN Reason: HYPOGLYCEMIA Divalproex Sodium (Divalproex Dr 500mg Tab) 500 mg PO BID [facility] Glucagon (Glucagon 1 Mg/Vial) 1 mg IM 1X PRN PRN Reason: HYPOGLYCEMIA Heparin Sodium (Porcine) (Heparin 5000 Unit/Ml 1 Ml Vial) 5,000 unit SQ Q8HR [facility] Last Admin: 07/11/20 01:00 Dose: 5,000 unit Documented by: Insulin Human Regular (Insulin -Regular Human 50 Unit/0.5 Ml Ml) 0 unit SQ ACHS [facility]; Protocol Last Admin: 07/11/20 16:30 Dose: Not Given Documented by: Ondansetron HCl (Ondansetron 4 Mg/2 Ml Vial) 4 mg IV Q6HP PRN PRN Reason: NAUSEA / VOMITING Quetiapine Fumarate (Quetiapine 100mg Tab) 10,000 mg PO BEDTIME [facility] Ropinirole HCl (Ropinirole Hcl 1 Mg Tab) 2 mg PO BID [facility] Sodium Chloride (Flush Normal Saline 10 Ml) 10 ml IV BID [facility] Last Admin: 07/11/20 09:00 Dose: 10 ml Documented by: Tizanidine HCl ([facility] 4 Mg Tablet) [facility] Assessment/ Plan: Nephrology No acute cardiac or pulmonary complaints. No CP or SOB. Good appetite. Good urine output. No acute events overnight. Vitals, medications, blood work and imaging reviewed in the chart. General: Oriented x3, Cooperative, Mild distress HEENT: Atraumatic, Normocephalic Neck: Supple Respiratory: Clear to auscultation bilaterally Cardiovascular: Regular rate/rhythm, Edema Gastrointestinal: Soft and benign, Non-distended Musculoskeletal: No clubbing, No contractures Integumentary: No cyanosis Neurological: Normal speech Laboratory Data (last 24 hrs) 07/09/20 20:10: PT 12.0, INR 1.04, APTT 35.7 07/09/20 20:10: WBC 7.30, Hgb 9.9 L, Hct 29.6 L, Plt Count 230 07/09/20 20:10: Sodium 134 L, Potassium 6.2 H*, BUN 55 H, Creatinine 2.21 H, Glucose 111 H, Total Bilirubin 0.4, AST 11 L, ALT 18, Alkaline Phosphatase 77 Conclusions/Impression: MARLENA improving with IVF CKD III -Discontinue NS -Encourage nutrition and hydration Hyponatremia -Discontinue NS Hyperkalemia -Kayexalate as needed NAG Acidosis likely due to MARLENA Hypocalcemia -Continue Vitamin D HTN, variable Anemia in chronic illness -Monitor H&H
[2020-07-11] MEDS ORDERED: ROPINIROLE HCL 1 MG TAB ONE (21:21)
[2020-07-11] MEDS: ACETAMINOPHEN 500 MG TAB PO PRN (21:26)
[2020-07-11] MEDS ORDERED: ACETAMINOPHEN 500 MG TAB ONE (21:45)
[2020-07-11] MEDS ORDERED: TIZANIDINE 4 MG TABLET PO PRN (22:10)
[2020-07-11] MEDS ORDERED: DOCUSATE NA 100 MG CAP PO ONE (23:03)
[2020-07-11] MEDS ORDERED: ONDANSETRON 4 MG/2 ML VIAL ONE (23:38)
[2020-07-11 23:41] VITALS: BP 133/73; TEMP 97.5
[2020-07-12 00:14] VITALS: O2SAT 95
--- NOTE | 2020-07-12 00:35 | ER ---
Nurse's Notes [facility] Name: Tabatha Chambers Age: 54 yrs Sex: Female : 1965 Arrival Date: 07/09/2020 Time: 19:31 Bed 26 Private MD: Diagnosis: Adverse effect of benzodiazepines;Acute kidney failure;Acidosis;Hyperkalemia Presentation: 07/09 19:40 Chief complaint: EMS states: they were toned out for report of pt with suicidal bb ideations pt was at home and "went crazy" saying "I want to kill myself" pt has been getting xanax off the street and had taken an unknown amount along with possible pain medication she was also getting off the street. Pt was threatening to cut herself with a plastic knife. Coronavirus screen: At this time, the client does not indicate any symptoms associated with coronavirus-19. Ebola Screen: No symptoms or risks identified at this time. 19:40 Method Of Arrival: EMS: [facility] 19:45 Initial Sepsis Screen: Does the patient meet any 2 criteria? No. Patient's initial bb sepsis screen is negative. Does the patient have a suspected source of infection? No. Patient's initial sepsis screen is negative. Risk Assessment: Do you want to hurt yourself or someone else? Patient reports desire/thoughts of hurting themselves or someone else. Provider notified. Onset of symptoms is unknown. 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 00:00 LMP N/A - Unknown wh Historical: - Allergies: 00:40 No Known Allergies; bb - Home Meds: 00:40 albuterol sulfate 90 mcg/actuation Inhl HFAA 2 puffs every 4 hours for Bronchospasm bb Prevention [Active]; aspirin 81 mg Oral chew 1 tab once daily for Prevention of Transient Ischemic Attacks [Active]; folic acid 1 mg Oral tab 1 tab once daily for Folate Deficiency [Active]; Hydroxyzine Oral [Active]; lisinopril 20 mg Oral tab 1 tab once daily for Hypertension [Active]; melatonin 10 mg Oral cap nightly for sleep disorder [Active]; Vitamin B-12 500 mcg Oral lozg daily for Prevention of Vitamin B12 Deficiency [Active]; - PMHx: 00:40 Seizures; Hypertension; bb - Immunization history:: Adult Immunizations. - Social history:: Smoking status: unknown. - Family history:: not pertinent. - Hospitalizations: : No recent hospitalization is reported. Screenin/04 20:00 Abuse screen: Denies threats or abuse. Denies injuries from another. Nutritional wh screening: No deficits noted. Tuberculosis screening: No symptoms or risk factors identified. Fall Risk None identified. Assessment: 20:00 General: Appears lethargic. Behavior is drowsy. Pain: Denies pain. Neuro: Level of wh Consciousness is obeys commands, lethargic, Oriented to person, place. Cardiovascular: Heart tones S1 S2. Respiratory: Airway is patent Respiratory effort is even, unlabored, Respiratory pattern is regular, symmetrical, Breath sounds are clear bilaterally. GI: Abdomen is round non-distended. : No deficits noted. EENT: No deficits noted. Derm: Skin is intact, is healthy with good turgor, Skin is pink, warm \\T\\ dry. normal. Musculoskeletal: Circulation, motion, and sensation intact. 21:00 Reassessment: Patient appears in no apparent distress at this time. No changes from previously documented assessment. Patient and/or family updated on plan of care and expected duration. Pain level reassessed. 22:00 Reassessment: Patient appears in no apparent distress at this time. Patient and/or family updated on plan of care and expected duration. Pain level reassessed. 23:00 Reassessment: Patient appears in no apparent distress at this time. Patient and/or family updated on plan of care and expected duration. Pain level reassessed. Pt being admitted to ICU. Psych: 20:00 [place] Suicide Severity Screening: "In the past month, have you actually had any thoughts of killing yourself?" Patient responds "yes.". [place] Suicide Severity Screening: In the past month, have you wished you were or wished you could go to sleep and not wake up? Patient responds "yes." "In your lifetime, have you ever done anything, started to do anything, or prepared to do anything to end your life?" Patient responds "no.". Subjective: Patient's mood is lethargic. Objective: Patient is cooperative. Interventions: Removed personal items and placed in bag. Patient placed in hospital gown. Searched person for dangerous items. Urine collected and sent for urine drug test. Belonging list filled out. Safety Checks: Personal items have been removed. Door is open. No visitors are present at this time. Patient uses benzodiazepines unknown amount. Commitment: Patient will be a voluntary commitment. Vital Signs: 19:45 BP 148 / 93; Pulse 135; Resp 10 S; Temp 97.3(A); Pulse Ox 96% on R/A; Weight 113.4 kg bb (R); 20:00 BP 98 / 63; Pulse 53; Resp 14; Pulse Ox 100% on R/A; 21:00 BP 95 / 68; Pulse 54; Resp 14; Pulse Ox 100% on R/A; 22:00 BP 102 / 54; Pulse 54; Resp 16; Pulse Ox 100% ; 23:00 BP 96 / 61; Pulse 62; Resp 16; Pulse Ox 100% on R/A; 07/10 00:00 BP 102 / 66; Pulse 58; Resp 16; Pulse Ox 100% ; ED Course: 07/09 00:00 No provider procedures requiring assistance completed. Patient admitted, IV remains in place. 19:31 Patient arrived in ED. 19:31 Darian Pate MD is Attending Physician. rn 19:40 Arm band placed on Patient placed in an exam room, on a stretcher, on cardiac technician, bb on pulse oximetry. 20:00 Patient has correct armband on for positive identification. Placed in gown. Bed in low wh position. Side rails up X 1. quality assurance monitor body on. Pulse ox on. NIBP on. Sitter at bedside. 20:00 Maintain EMS IV. Dressing intact. Good blood return noted. 20:11 Shelby Salgado RN is Primary Nurse. 22:03 Gavin Crum is Hospitalizing Provider. rn 07/10 00:38 Triage completed. bb 06:48 Primary Nurse role handed off by Shelby Salgado RN tt3 07/11 16:43 Mayda Vuong is Primary Nurse. kg Administered Medications: 07/09 20:35 Drug: NS 0.9% 1000 ml Route: IV; Rate: 125 ml/hr; Site: left antecubital; 07/10 00:12 Follow up: Response: No adverse reaction; IV Status: Infusion continued upon admission 07/09 20:37 Drug: NARcan (naloxone) 2 mg Route: IVP; Site: left antecubital; 07/10 00:12 Follow up: Response: No adverse reaction 07/09 21:43 Drug: D50W 50 ml Route: IVP; Site: left antecubital; 07/10 00:12 Follow up: Response: No adverse reaction 07/09 21:45 Drug: Insulin Regular Human 5 units {Co-Signature: [email or web address] (Gavin Chávez RN).} Route: IVP; Site: left antecubital; 07/10 00:12 Follow up: Response: No adverse reaction 07/09 21:47 Drug: Sodium Bicarbonate 1 amp Route: IVP; Site: left antecubital; 07/10 00:11 Follow up: Response: No adverse reaction 07/09 22:25 Drug: NS 0.9% 1000 ml Route: IV; Rate: 1000 ml; Site: left antecubital; 07/10 00:12 Follow up: Response: No adverse reaction; IV Status: Completed infusion 01:21 Drug: D50W 50 ml Route: IVP; Site: left antecubital; 02:24 Follow up: Response: No adverse reaction 01:23 Drug: D5-NS 1000 ml Route: IV; Rate: 125 ml/hr; Site: left antecubital; 02:24 Follow up: Response: No adverse reaction; IV Status: Completed infusion 02:15 Drug: D50W 50 ml Route: IVP; Site: left antecubital; 04:25 Follow up: Response: No adverse reaction 02:17 Drug: Insulin Regular Human 5 units {Co-Signature: [email or web address] (Gavin Chávez RN).} Route: IVP; Site: left antecubital; 04:25 Follow up: Response: No adverse reaction 02:19 Drug: Sodium Bicarbonate 1 amp Route: IVP; Site: left antecubital; 04:25 Follow up: Response: No adverse reaction 02:21 Drug: Calcium Gluconate 1 grams Route: IVPB; Infused Over: 60 mins; Site: left antecubital; 04:26 Follow up: Response: No adverse reaction; IV Status: Completed infusion Outcome: 07/09 22:04 Decision to Hospitalize by Provider. rn 07/10 00:00 Admitted to ER Hold. Please see [facility] for further documentation. Condition: stable Instructed on the need for admit. 07/12 00:34 Patient left the ED. iw Signatures: Clarisse March RN RN Genia Fournier RN RN Darian Pate MD MD rn Habalo, Winsy, RN RN Rolan, Sukhdev tt3 Madya Vuong kg, RN [email or web address] Corrections: (The following items were deleted from the chart) 07/09 22:30 20:00 Sodium Bicarbonate 1 amp IVP in left antecubital [facility]
[2020-07-12] MEDS ORDERED: TIZANIDINE 4 MG TABLET PO SCH (08:30)
[2020-07-12] MEDS ORDERED: ASPIRIN EC 81 MG TAB PO SCH (09:00)
[2020-07-12] MEDS ORDERED: CETIRIZINE HCL 5 MG TABLET PO SCH (09:00)
[2020-07-12] MEDS ORDERED: ATORVASTATIN 20 MG TAB PO SCH ×2 (09:00→21:00)
--- NOTE | 2020-07-12 19:08 | P.DS ---
Admission Date: 07/09/20 Discharge Date: 07/11/20 Disposition: TRANSFR TO OTHER-PSY/CD/REHAB Discharge Condition: GOOD Reason for Admission: benzodiazepine overdose, MARLENA - Problems (1) Benzodiazepine (tranquilizer) overdose Status: Acute Qualifiers: Encounter type: initial encounter Injury intent: intentional self-harm Qualified Code(s): T42.4X2A - Poisoning by benzodiazepines, intentional self- harm, initial encounter (2) Hyperkalemia Status: Acute (3) Bipolar disorder Status: Chronic Qualifiers: Active/Remission status: remission status unspecified Qualified Code(s): F31.9 - Bipolar disorder, unspecified (4) Essential tremor Status: Chronic (5) Schizophrenia Status: Chronic Qualifiers: Schizophrenia type: unspecified Qualified Code(s): F20.9 - Schizophrenia, unspecified (6) Seizures Status: Chronic (7) Acute worsening of stage 3 chronic kidney disease Status: Acute Brief History of Present Illness: 54-year-old woman with a past medical history of chronic kidney disease, bipolar disorder, schizophrenia, seizure disorder, substance use disorder was brought to the emergency department due to altered mental status. Patient is reported to have overdosed on her Xanax. She was confused and could not provide history. Urine toxicology screen was positive for benzodiazepine. Her blood work also showed hyperkalemia and metabolic acidosis. Patient was admitted for further management. Hospital Course: Patient admitted to the medical floor, treated with supportive measures. Hyper kalemia was treated with sodium bicarb, calcium gluconate, insulin, D50 and oral Kayexalate. Potassium level improved. Patient became awake the following morning and admitted to suicidal attempt. Patient reports that she she is still suicidal. He was seen by nephrology for hyperkalemia and chronic kidney disease. She was also seen by psychiatry-Dr. Young who recommended inpatient psychiatry. Patient home medications were resumed during the hospital stay. She has accepted to inpatient psychiatry. She is clinically stable for transfer. Vital Signs/Physical Exam: Temp Pulse Resp BP Pulse Ox 97.5 F 98 H 14 133/73 95 07/11/20 23:39 07/11/20 23:39 07/11/20 23:39 07/11/20 23:39 07/11/20 23:39 General: Alert, In no apparent distress HEENT: Mucous membr. moist/pink Neck: Supple, JVD not distended Respiratory: Clear to auscultation bilaterally, Normal air movement Cardiovascular: Regular rate/rhythm, Normal S1 S2 Gastrointestinal: Normal bowel sounds, Soft and benign, Non-distended, No tenderness Musculoskeletal: No swelling Integumentary: No rashes, No erythema Neurological: Normal strength at 5/5 x4 extr, Cranial nerves 3-12 intact Laboratory Data at Discharge: WBC Cancelled 07/12/20 05:00 Hgb Cancelled 07/12/20 05:00 Hct Cancelled 07/12/20 05:00 Plt Count Cancelled 07/12/20 05:00 PT 12.0 SECONDS (9.5-12.5) 07/09/20 20:10 INR 1.04 07/09/20 20:10 APTT 35.7 SECONDS (24.3-36.9) 07/09/20 20:10 Sodium Cancelled 07/12/20 05:00 Potassium Cancelled 07/12/20 05:00 BUN Cancelled 07/12/20 05:00 Creatinine Cancelled 07/12/20 05:00 Glucose Cancelled 07/12/20 05:00 Phosphorus 3.1 mg/dL (2.5-4.9) 07/10/20 10:07 Magnesium 1.8 mg/dL (1.8-2.4) 07/10/20 10:07 Total Bilirubin 0.4 mg/dL (0.2-1.0) 07/10/20 10:07 AST 13 U/L (15-37) L 07/10/20 10:07 ALT 21 U/L (12-78) 07/10/20 10:07 Alkaline Phosphatase 88 U/L (45-117) 07/10/20 10:07 Home Medications: Aspirin [Aspirin EC 81 MG] 81 mg DAILY 07/04/19 Atorvastatin Calcium 20 tab DAILY 07/04/19 Buprenorphine HCl/Naloxone HCl [Suboxone 2 mg-0.5 mg Sl Film] 2 film SL TID 07/04/19 Cetirizine HCl [Allergy Relief] 10 mg PO DAILY 07/04/19 Cyanocobalamin (Vitamin B-12) [Vitamin B12] 2,500 mcg DAILY 07/04/19 Propranolol [Inderal*] 10 mg PO TID 07/04/19 Quetiapine Fumarate [Seroquel] 200 tab BEDTIME 07/04/19 Ropinirole HCl 1 tab BID 07/04/19 Tizanidine [Zanaflex*] 4 tab PO TIDP PRN 07/04/19 lisinopriL [Lisinopril] 20 tab DAILY 07/04/19 Atorvastatin Calcium [Lipitor*] 20 mg PO BEDTIME 07/11/20 Divalproex Sodium [Depakote] 500 mg PO BID 07/11/20 Followup: NONE,NONE [Primary Care Provider] - Time spent managing pt's care (in minutes): 34
[2020-07-12] MEDS ORDERED: QUETIAPINE 100MG TAB PO SCH (21:00)
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
== END 2020-07-12 00:28 | DRG 917 ==
LOC: ER 19:07 → ERHOLD 23:46
PROVIDERS: ADMIT Internal Medicine; ATTEND Internal Medicine
DX: T42.4X2A Poisoning by benzodiazepines, intentional self-harm, initial encounter (principal); G93.41 Metabolic encephalopathy; N17.9 Acute kidney failure, unspecified; Z68.41 Body mass index [BMI] 40.0-44.9, adult; E87.1 Hypo-osmolality and hyponatremia; E87.2 Acidosis; E83.51 Hypocalcemia; E87.5 Hyperkalemia; E66.9 Obesity, unspecified; G25.0 Essential tremor; D63.8 Anemia in other chronic diseases classified elsewhere; I12.9 Hypertensive chronic kidney disease with stage 1 through stage 4 chronic kidney disease, or unspecified chronic kidney disease; N18.30 Chronic kidney disease, stage 3 unspecified; F20.9 Schizophrenia, unspecified; E16.2 Hypoglycemia, unspecified; F31.9 Bipolar disorder, unspecified; Z79.82 Long term (current) use of aspirin; Z79.899 Other long term (current) drug therapy; Z98.51 Tubal ligation status; Z20.822 Contact with and (suspected) exposure to COVID-19
CPT/HCPCS: 36415; 80048; 80053; 80076; 80307; 80320; 80329; 81003; 82550; 82607; 82728; 82746; 82947; 83540; 83735; 84100; 84466; 85025; 85610; 85730; 93005; 94760; 96361; 96365; 96366; 96375; 99291; J0610; J1644; J2310; J2405; J7030; J7042; U0003

== ENCOUNTER 2020-12-15 14:27 | Emergency (ER) | payer OTHER ==
[2020-12-15] MEDS ORDERED: HYDROCODONE/APAP 10/325 TAB ONE (15:33)
--- NOTE | 2020-12-15 15:37 | RAD REPORT ---
EXAM DESCRIPTION: RAD - Knee Left 3 View - 12/15/2020 3:12 pm CLINICAL HISTORY: PAIN COMPARISON: Knee Left 2 View dated 02/04/2015 FINDINGS: No fracture, dislocation or periosteal reaction.No joint effusion seen. No significant butch nt space narrowing seen. Medial and lateral compartment marginal spurs are present. More prominent pa tella femoral joint space narrowing is present with patella articular margin degenerative spurs. Spur ring changes are progressive. No soft tissue abnormality. IMPRESSION: Progressive degenerative knee changes as detailed. No acute bone or joint finding. Clinical concerns for internal derangement or occult bony injury could be further assessed with MR im aging.
--- NOTE | 2020-12-15 15:38 | RAD REPORT ---
EXAM DESCRIPTION: RAD - Knee Right 3 View - 12/15/2020 3:12 pm CLINICAL HISTORY: PAIN COMPARISON: Knee Right 2 View dated 02/04/2015 FINDINGS: No fracture, dislocation or periosteal reaction.No joint effusion seen. No joint space meghan rowing. Mediolateral compartment marginal spurring seen. Patella femoral joint space narrowing with p atella articular marginal spurring seen. Degenerative change has progressed slightly. No suspicious soft tissue finding. IMPRESSION: Progressive knee joint degenerative change since 2014. No acute bone or joint finding. Clinical concerns for internal derangement or occult bony injury could be further assessed with MR im aging.
--- NOTE | 2020-12-15 15:45 | EDPHYS ---
Physician Documentation [facility] Name: Tabatha Chambers Age: 55 yrs Sex: Female : 1965 Arrival Date: 12/15/2020 Time: 14:29 Bed 14 Private MD: ED Physician Darian Pate HPI: 12/15 14:57 This 55 yrs old Female presents to ER via EMS with complaints of Knee Injury. pm1 14:57 The patient presents with pain, that is acute. The complaints affect the left knee, pm1 right knee. Context: The problem was sustained at home, resulted from Hold off the bed and fell, the patient can fully bear weight, the patient is able to ambulate, Problem is a result from a previous injury: No. Onset: The symptoms/episode began/occurred 4 day(s) ago. Modifying factors: The symptoms are alleviated by elevating leg, the symptoms are aggravated by weight bearing. Associated signs and symptoms: Pertinent negatives numbness, tingling. Treatment prior to arrival includes: no previous treatment. Severity of symptoms: in the emergency department the symptoms are unchanged. The patient has not experienced similar symptoms in the past. The patient has not recently seen a physician. Fentanyl 100 mg by EMS prior to arrival. 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 - Social history:: Smoking status: Patient denies any tobacco usage or history of. ROS: 15:05 Constitutional: Negative for fever, chills, and weight loss, Cardiovascular: Negative pm1 for chest pain, palpitations, and edema, Respiratory: Negative for shortness of breath, cough, wheezing, and pleuritic chest pain. 15:05 Abdomen/GI: Negative for abdominal pain, nausea, vomiting, diarrhea, and constipation. 15:05 Skin: Negative for injury, rash, and discoloration, Neuro: Negative for headache, weakness, numbness, tingling, and seizure. 15:05 MS/extremity: Positive for pain, of the left knee and right knee, Negative for decreased range of motion, deformity. 15:05 All other systems are negative. Exam: 15:05 Constitutional: This is a well developed, well nourished patient who is awake, alert, pm1 and in no acute distress. Head/Face: Normocephalic, atraumatic. 15:05 Cardiovascular: Exam negative for acute changes, Rate: normal, Rhythm: regular, Pulses: no pulse deficits are appreciated. 15:05 Respiratory: Exam negative for acute changes, respiratory distress, shortness of breath. 15:05 Musculoskeletal/extremity: Extremities: grossly normal except: noted in the left knee: tenderness, There is no evidence of decreased ROM, deformity, noted in the right knee: tenderness, no evidence of decreased ROM, deformity. 15:05 Neuro: Exam negative for acute changes, Orientation: is normal, Mentation: is normal, Motor: is normal, moves all fours. Vital Signs: 14:35 BP 125 / 90; Pulse 80; Resp 17; Temp 98.3; Pulse Ox 95% ; Weight 113.4 kg; Height 5 ft. ll1 5 in. (165.10 cm); Pain 9/10; 17:28 BP 126 / 89; Pulse 82; Resp 18; Pulse Ox 99% on R/A; Pain 6/10; ll1 14:35 Body Mass Index 41.60 (113.40 kg, 165.10 cm) ll1 MDM: 14:43 Patient medically screened. pm1 15:07 Data reviewed: vital signs. Data interpreted: Pulse oximetry: on room air is 95 %. pm1 Interpretation: normal. 15:44 Counseling: I had a detailed discussion with the patient and/or guardian regarding: the pm1 historical points, exam findings, and any diagnostic results supporting the discharge/admit diagnosis, radiology results, the need for outpatient follow up, for definitive care, a orthopedic surgeon, to return to the emergency department if symptoms worsen or persist or if there are any questions or concerns that arise at home. 16:49 ED course: ASSEMBLER FINAL aware reviewed. Patient on Suboxone, therefore will not prescribe any pm1 narcotic. 12/15 14:49 Order name: Knee Left 3 View XRAY; Complete Time: 15:43 pm1 12/15 14:49 Order name: Knee Right 3 View XRAY; Complete Time: 15:43 pm1 12/15 15:43 Order name: Ochoa wrap-joint; Complete Time: 16:08 pm1 Administered Medications: 15:12 Drug: Mcroberts (HYDROcodone-acetaminophen) 10 mg-325 mg 1 tabs {Note: rass 0.} Route: PO; ll1 17:29 Follow up: Response: No adverse reaction; Pain is decreased; RASS: Alert and Calm (0) ll1 Disposition Summary: 12/15/20 15:44 Discharge Ordered Location: Home pm1 Problem: new pm1 Symptoms: have improved pm1 Condition: Stable pm1 Diagnosis - Contusion of left knee - knee pain pm1 - Contusion of right knee - knee pain pm1 Followup: pm1 - With: Emergency Department - When: As needed - Reason: Worsening of condition Followup: pm1 - With: Private Physician - When: 2 - 3 days - Reason: Recheck today's complaints, Continuance of care, Re-evaluation by your physician Discharge Instructions: - Discharge Summary Sheet pm1 - Contusion pm1 - Acute Knee Pain, Adult pm1 Forms: - Medication Reconciliation Form pm1 - Thank You Letter pm1 - Antibiotic Education pm1 - Prescription Opioid Use pm1 Prescriptions: - Diclofenac Sodium 75 mg Oral Tablet Sustained Release - take 1 tablet by ORAL route 2 times per day; 30 tablet; Refills: 0, Product pm1 Selection Permitted Addendum: 12/19/2020 00:03 Co-signature as Attending Physician, Darian Pate MD. r n Signatures: Dispatcher [employer] Darian Hickey MD MD rn Marinas, Patrick, RUBIA MECHANICAL TECHNICIAN pm1 Chelsi Patel RN RN 1
--- NOTE | 2020-12-15 15:45 | ER ---
Nurse's Notes [facility] Name: Tabatha Chambers Age: 55 yrs Sex: Female : 1965 Arrival Date: 12/15/2020 Time: 14:29 Bed 14 Private MD: Diagnosis: Contusion of left knee-knee pain;Contusion of right knee-knee pain Presentation: 12/15 14:29 Chief complaint: Patient states: Bilateral knee pain since her fall 4 days ago. EMS ll1 states: 20 G L AC, fentanyl 100 mcg IV given en route. Ebola Screen: Patient denies travel to an Ebola-affected area in the 21 days before illness onset. Initial Sepsis Screen: Does the patient meet any 2 criteria? No. Patient's initial sepsis screen is negative. Does the patient have a suspected source of infection? Yes: Bone or joint infection. Risk Assessment: Do you want to hurt yourself or someone else? Patient reports no desire to harm self or others. Onset of symptoms was December 12, 2020. 14:29 Method Of Arrival: EMS: [facility] ll1 14:29 Acuity: VERO 4 ll1 14:35 Coronavirus screen: Vaccine status: Patient reports being unvaccinated. Client denies ll1 travel out of the [place] in the last 14 days. At this time, the client does not indicate any symptoms associated with coronavirus-19. Triage Assessment: 14:37 General: Appears in no apparent distress. Behavior is calm, cooperative, appropriate ll1 for age. Pain: Complains of pain in B knees Quality of pain is described as aching. Musculoskeletal: Circulation, motion, and sensation intact. Capillary refill < 3 seconds, Range of motion: intact in all extremities, Reports pain in B knees. Injury Description: Bruise. 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 - Social history:: Smoking status: Patient denies any tobacco usage or history of. Screenin:37 Abuse screen: Denies threats or abuse. Nutritional screening: No deficits noted. ll1 Tuberculosis screening: No symptoms or risk factors identified. Fall Risk Fall in past 12 months (25 points). Ambulatory Aid- Crutches/Cane/Walker (15 pts). Gait- Impaired (20 pts.). Total Kim Fall Scale indicates High Risk Score (45 or more points). Fall prevention measures have been instituted. Side Rails Up X 2 Frequent Obs/Assessments Occuring As available patient and family educated on Fall Prevention Program and Strategies. Assessment: 15:30 Reassessment: No changes from previously documented assessment. Patient and/or family ll1 updated on plan of care and expected duration. Pain level reassessed. Patient is alert, oriented x 3, equal unlabored respirations, skin warm/dry/pink. 16:30 Reassessment: No changes from previously documented assessment. Patient and/or family ll1 updated on plan of care and expected duration. Pain level reassessed. Patient is alert, oriented x 3, equal unlabored respirations, skin warm/dry/pink. 17:28 Reassessment: No changes from previously documented assessment. Patient and/or family ll1 updated on plan of care and expected duration. Pain level reassessed. Patient is alert, oriented x 3, equal unlabored respirations, skin warm/dry/pink. Vital Signs: 14:35 BP 125 / 90; Pulse 80; Resp 17; Temp 98.3; Pulse Ox 95% ; Weight 113.4 kg; Height 5 ft. ll1 5 in. (165.10 cm); Pain 9/10; 17:28 BP 126 / 89; Pulse 82; Resp 18; Pulse Ox 99% on R/A; Pain 6/10; ll1 14:35 Body Mass Index 41.60 (113.40 kg, 165.10 cm) ll1 ED Course: 14:29 Patient arrived in ED. ll1 14:31 Triage completed. ll1 14:35 Arm band placed on Patient placed in an exam room, on a stretcher. ll1 14:38 Patient has correct armband on for positive identification. Bed in low position. Call ll1 light in reach. Side rails up X 1. Pulse ox on. NIBP on. 14:38 Maintain EMS IV. Dressing intact. Good blood return noted. Site clean \T\ dry. Gauge \T\ ll 1 site: 20 G L AC. 14:42 Miguel Weller NP is PHCP. pm1 14:42 Darian Pate MD is Attending Physician. pm1 15:03 Chelsi Patel, RN is Primary Nurse. ll1 15:12 Knee Left 3 View XRAY In Process Unspecified. EDMS 15:12 Knee Right 3 View XRAY In Process Unspecified. EDMS 17:28 No provider procedures requiring assistance completed. IV discontinued, intact, ll1 bleeding controlled, No redness/swelling at site. Pressure dressing applied. Administered Medications: 15:12 Drug: [place] (HYDROcodone-acetaminophen) 10 mg-325 mg 1 tabs {Note: rass 0.} Route: PO; ll1 17:29 Follow up: Response: No adverse reaction; Pain is decreased; RASS: Alert and Calm (0) ll1 Outcome: 15:44 Discharge ordered by MD. pm1 17:29 Discharged to home via wheelchair. ll1 17:29 Condition: stable 17:29 Discharge instructions given to patient, Instructed on discharge instructions, follow up and referral plans. medication usage, Demonstrated understanding of instructions, follow-up care, medications, Prescriptions given X 1. 17:29 Patient left the ED. ll1 Signatures: Dispatcher [employer] EDDC Miguel Weller NP [employer] pm1 Chelsi Patel, RN RN ll1
[2020-12-15 17:34] VITALS: TEMP 98.3
[2020-12-15 17:36] VITALS: BP 126/89; O2SAT 99
== END 2020-12-15 17:29 | disposition home or self-care (01) ==
LOC: ER 14:27
DX: S80.02XA Contusion of left knee, initial encounter (principal); S80.01XA Contusion of right knee, initial encounter; I10 Essential (primary) hypertension; R56.9 Unspecified convulsions; Z90.710 Acquired absence of both cervix and uterus; Z90.49 Acquired absence of other specified parts of digestive tract
CPT/HCPCS: 99284

== ENCOUNTER 2021-10-26 21:43 | Inpatient (IN) | payer OTHER ==
--- OUTSIDE RECORDS SUMMARY | 2021-10-26 21:48 | XMS REPORT | Continuity of Care Document ---
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 myocardial injury or necrosis ? ?Note: Serial measurement may be necessary to confirm or exclude the diagnosis of myocardial injury or necrosis; Clinical correlation (symptoms, EKGs, imaging studies, and others) required; Repeat in 4-6 hours if clinically indicated. ? Equal or Higher than 0.121 ng/mL---Abnormal. Myocardial Injury or Necrosis Likely ? Biotin has been reported to cause a negative bias, interpret results relative to patient's use of biotin. ? Lab Interpretation Normal (test code = 67584-0) [facility], [id number] 02:50:00 Test Item Value Reference Range Interpretation Comments VALPROIC A (test code = <10 50-100 L 2948401396) TULIO (test code = TULIO) Toxic Range: ?Greater than 100 ug/mL Lab Interpretation (test Abnormal code = 04341-8) [facility]2020-[facility] 02:45:00 Test Item Value Reference Range Interpretation Comments SALICYLATE (test code <10 mg/L = 6023486371) TULIO (test code = TULIO) Therapeutic Range: ? Analgesic and Antipyretic Use ? 20-100 mg/L ? ? Anti-Inflammatory Use ? 100-250 mg/L Toxic Range: ? Greater than 300 mg/L [facility]2020-12-[facility] 02:45:00 Test Item Value Reference Range Interpretation Comments ALCOHOL (test code = <10 mg/dL 9830110618) TULIO (test code = TULIO) <10 Tbucdhme53-133 Toxic>100 Depression of APPLICATION SYSTEMS ARCHITECT>400 Fatalities Reported [facility]ACET[facility]INOPHEN2020-12-08 02:44:00 Test Item Value Reference Range Interpretation Comments ACETAMINOP (test code = <10.0 10-30 L 6049993396) TULIO (test code = TULIO) Toxic: Greater than 200 ug/mL @ 4 hour post ingestion or greater than 50 ug/mL @ 12 hour post ingestion Lab Interpretation (test Abnormal code = 75701-2) [facility]. METABOLIC PANEL (39854)2020-02-13 02:43:00 Test Item Value Reference Range Interpretation Comments NA (test code = 138 mmol/L 135-145 1392104083) K (test code = 5.1 mmol/L 3.5-5 H 9241315487) CL (test code = 106 mmol/L 98-108 9952261583) CO2 TOTAL (test code = 19 mmol/L 23-31 L 7060196349) AGAP (test code = 2-16 8193465041) BUN (test code = 26 mg/dL 7-23 H 9619367568) GLUCOSE (test code = 113 mg/dL 70-110 H 7417420891) CREATININE (test code = 1.20 mg/dL 0.5-1.04 H 7100959686) TOTAL BILI (test code = 0.5 mg/dL 0.1-1.5 8282008377) CALCIUM (test code = 10.4 mg/dL 8.6-10.6 3740063530) T PROTEIN (test code = 8.4 g/dL 6.3-8.2 H 2790895371) ALBUMIN (test code = 4.7 g/dL 3.5-5 3642268135) ALK PHOS (test code = 115 U/L 34-122 5228758307) ALTv (test code = 14 U/L 5-35 1742-6) AST(SGOT) (test code = 20 U/L 13-40 5186408337) eGFR Calculation mL/min/1.73m2 (Non-) (test code = 2226900393) eGFR Calculation mL/min/1.73m2 () (test code = 5498094821) TULIO (test code = TULIO) Association of Glomerular Filtration Rate (GFR) and Staging of Kidney Disease* + --+ --+ ------+| GFR (mL/min/1.73 m2) ?| With Kidney Damage ?| ?Without Kidney Damage+ --------+ --------+ +| ?>90 ?| ?Stage one ?| ? Normal ?+ ---+ ---+ -------+| ?60-89 ?| ?Stage two ?| ? Decreased GFR ? + --+ --+ ------+| ?30-59 ?| ?Stage three ?| ? Stage three ? + --+ --+ ------+| ?15-29 ?| ?Stage four ? | ? Stage four ?+ ---+ ---+ -------+| ?<15 (or dialysis) ? ?| ?Stage five ? | ? Stage five ?+ ---+ ---+ -------+ *Each stage assumes the associated GFR level has been in effect for at least three months. ?Stages 1 to 5, with or without kidney disease, indicate chronic kidney disease. Notes: Determination of stages one and two (with eGFR >59mL/min/1.73 m2) requires estimation of kidney damage for at least three months as defined by structural or functional abnormalities of the kidney, manifested by either:Pathological abnormalities or Markers of kidney damage (including abnormalities in the composition of the blood or urine or abnormalities in imaging tests). 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 It is used under Emergency Use Authorization (EUA) by FDA. The limit of detection (LOD) of the assay is 125 Genome Equivalents/mL. A positive result is indicative of the presence of SARS-CoV-2 RNA. ?Clinical correlation with patient history and other diagnostic information is necessary to determine patient infection status. A negative (Not Detected) result does not preclude SARS-CoV-2 infection. In patients with clinical symptoms and other tests that are consistent with SARS-CoV-2 infection, negative results should be treated as presumptive negative and a new specimen should be tested with alternative PCR molecular test. Invalid: Please collect a new specimen for repeat patient testing if clinically indicated. Lab Interpretation Normal (test code = 62077-3[facility] [id number] 01:53:00 Test Item Value Reference Range Interpretation Comments WBC (test code = See_Comment H [Automated 6690-2) message] The sy stem which generated this result transmitted reference range : 4.30 - 11.10 10*3/?L. The reference range was not used to interpret this result as normal/abnormal . RBC (test code = See_Comment [Automated 789-8) message] The sy stem which generated this result transmitted reference range : 3.93 - 5.25 10*6/?L. The reference range was not used to interpret this result as normal/abnormal . HGB (test code = 12.5 g/dL 11.6-15 718-7) HCT (test code = 39.3 % 35.7-45.2 4544-3) MCV (test code = 85.1 fL 80.6-95.5 787-2) MCH (test code = 27.1 pg 25.9-32.8 785-6) MCHC (test code = 31.8 g/dL 31.6-35.1 786-4) RDW-SD (test code = 43.3 fL 39-49.9 29115-1) RDW-CV (test code = 14.1 % 12-15.5 788-0) PLT (test code = See_Comment H [Automated 777-3) message] The sy stem which generated this result transmitted reference range : 166 - 358 10*3/ ?L. The reference r xochitl was not used to interpret this result as normal/abnormal . MPV (test code = 9.6 fL 9.5-12.9 31913-2) NRBC/100 WBC (test See_Comment [Automat ed code = 5659477274) message] The system which generated this result transmitted reference range : 0.0 - 10.0 /100 WBCs. The refer ence range was not u sed to interpret th is result as normal/abnormal . NRBC x10^3 (test code <0.01 See_Comment [Auto mated = 5524772985) message] The s ystem which generated this result transmitted reference range : 10*3/?L. The reference range was not used to interpret this result as normal/abnormal . GRAN MAT (NEUT) % 82.3 % (test code = 770-8) IMM GRAN % (test code 0.70 % = 5367830694) LYMPH % (test code = 12.5 % 736-9) MONO % (test code = 3.9 % 5905-5) EOS % (test code = 0.2 % 713-8) BASO % (test code = 0.4 % 706-2) GRAN MAT x10^3(ANC) 9.44 10*3/uL 1.88-7.09 H (test code = 9327675414) IMM GRAN x10^3 (test 0.08 10*3/uL 0-0.06 H code = 3120084915) LYMPH x10^3 (test code 1.43 10*3/uL 1.32-3.29 = 731-0) MONO x10^3 (test code 0.45 10*3/uL 0.33-0.92 = 742-7) EOS x10^3 (test code = <0.03 0.03-0.39 L 711-2) BASO x10^3 (test code 0.05 10*3/uL 0.01-0.07 = 704-7) Lab Interpretation Abnormal (test code = 55101-3) [facility]
[2021-10-26 22:17] LABS: Urine Blood Negative (Negative); Urine Glucose Negative (Negative); Urine Protein Negative (Negative); Urine Specific Gravity <=1.005 (1.005-1.030); Urine pH 5.5 (5.0-7.0)
[2021-10-26] MEDS ORDERED: NA CHLORIDE 0.9% 1,000 ML ONE (22:18)
[2021-10-26] MEDS ORDERED: LEVETIRACETAM 500 MG/5 ML VIAL IV ONE (22:18)
[2021-10-26] MEDS ORDERED: NA CHLORIDE 0.9% 100 ML ONE (22:18)
[2021-10-26 22:24] LABS: Urine Specific Gravity/Preg 1.005 (1.005-1.030)
--- NOTE | 2021-10-26 22:28 | RAD REPORT ---
EXAM DESCRIPTION: RAD - Chest Single View - 10/26/2021 10:23 pm CLINICAL HISTORY: COUGH COMPARISON: Portable September 2019 TECHNIQUE: AP portable chest image was obtained 10/26/2021 10:23 pm . FINDINGS: Lungs are clear. Heart and vasculature are normal. No measurable pleural effusion and no p neumothorax. No acute bony abnormality seen. No acute aortic findings suspected. IMPRESSION: No acute cardiopulmonary process. No significant change from comparison study.
[2021-10-26 22:31] LABS: Protime INR 0.95
[2021-10-26 22:32] LABS: Absolute Lymphocytes (CBC) 2.2 K/uL (0.7-4.9); Hematocrit 32.7 % (36.0-45.0); Lymphocytes % 33.6 % (15.3-44.8); MPV 7.1 fL (7.6-11.3)
[2021-10-26 22:49] LABS: ALT/SGPT 12 U/L (12-78); Albumin 3.3 g/dL (3.4-5.0); Alkaline Phosphatase 91 U/L (45-117); BUN Blood Urea Nitrogen 46 mg/dL (7-18); Bicarbonate 21 mmol/L (21-32); Bilirubin Total 0.2 mg/dL (0.2-1.0); Glomerular Filtration Rate 45 ml/min (=/>90); Glucose Level 100 mg/dL (74-106); Lipase 35 U/L (73-393); NT PRO-BNP 181 pg/mL (<125); Sodium Level 136 mmol/L (136-145)
[2021-10-26 22:50] LABS: AST/SGOT 12 U/L (15-37); Bilirubin Direct < 0.1 mg/dL (0-0.2); Potassium 6.4 mmol/L (3.5-5.1)
[2021-10-26 23:01] LABS: Barbiturates NEGATIVE (NEGATIVE); Benzodiazepines POSITIVE (NEGATIVE); Cocaine NEGATIVE (NEGATIVE); METHAMPHETAM NEGATIVE (NEGATIVE); Methadone NEGATIVE (NEGATIVE); Opiates NEGATIVE (NEGATIVE); Phencyclidine NEGATIVE (NEGATIVE); THC Cannibis NEGATIVE (NEGATIVE)
--- NOTE | 2021-10-26 23:04 | RAD REPORT ---
EXAM DESCRIPTION: CT - Head Brain Wo Cont - 10/26/2021 10:56 pm CLINICAL HISTORY: Alteration of awareness/confusion COMPARISON: 2019 TECHNIQUE: Computed axial tomography of the head was obtained. IV contrast was not requested. All CT scans are performed using dose optimization technique as appropriate and may include automated exposure control or mA/KV adjustment according to patient size. FINDINGS: An intracranial bleed is not seen . The ventricles are normal in caliber. No extra-axial fluid collection is noted. No significant hypodensity within the brain is seen. Fluid within the sinuses/ mastoids is not seen. IMPRESSION: No acute intracranial abnormality is seen. If patient's symptoms persist MRI of the bra in would be recommended.
--- NOTE | 2021-10-26 23:10 | ER ---
Nurse's Notes [facility] [place] Name: Tabatha Chambers Age: 55 yrs Sex: Female : 1965 Arrival Date: 10/26/2021 Time: 21:44 Bed 27 Private MD: Diagnosis: Weakness;Obesity, unspecified;Hyperkalemia-6.4;Acute kidney failure, unspecified-on chronic;Anemia, unspecified Presentation: 10/26 22:17 Chief complaint: Patient states: "I woke up screaming and I thought I was having a tw5 seizure." EMS states: "Patient states she thought she had a seizure about an hour ago, the last one was 4 days ago and the one before that was about a year ago.'. Coronavirus screen: Vaccine status: Patient reports being unvaccinated. Ebola Screen: Patient negative for fever greater than or equal to 101.5 degrees Fahrenheit, and additional compatible Ebola Virus Disease symptoms Patient denies exposure to infectious person. Patient denies travel to an Ebola-affected area in the 21 days before illness onset. Initial Sepsis Screen: Does the patient meet any 2 criteria? No. Patient's initial sepsis screen is negative. Does the patient have a suspected source of infection? No. Patient's initial sepsis screen is negative. Risk Assessment: Do you want to hurt yourself or someone else? Patient reports no desire to harm self or others. Onset of symptoms was October 26, 2021 at 21:00. 22:17 Method Of Arrival: EMS: [facility] tw5 22:17 Acuity: VERO 3 tw5 Triage Assessment: 22:18 General: Appears in no apparent distress. obese, Behavior is calm, cooperative, tw5 appropriate for age. Pain: Complains of pain in chest Pain currently is 5 out of 10 on a pain scale. Neuro: No deficits noted. Cardiovascular: Chest pain is described as mild. Respiratory: No deficits noted. CLIENT SERVICES COORDINATOR: 22:18 LMP N/A - Post-menopause tw5 Historical: - Allergies: 22:18 No Known Allergies; tw5 - PMHx: 22:18 Hypertension; Seizures; tw5 - PSHx: 22:18 ankle SX; Cholecystectomy; tubes tied; tw5 - Immunization history:: Flu vaccine is up to date. - Social history:: Smoking status: Patient denies any tobacco usage or history of. - Family history:: not pertinent. Screenin:20 Abuse screen: Denies threats or abuse. Denies injuries from another. Nutritional tw5 screening: No deficits noted. Tuberculosis screening: No symptoms or risk factors identified. Fall Risk Secondary diagnosis (15 points). Assessment: 22:20 General: Appears in no apparent distress. Behavior is calm, cooperative, appropriate tw5 for age. Pain: Complains of pain in chest Pain currently is 5 out of 10 on a pain scale. Neuro: No deficits noted. Respiratory: No deficits noted. : No deficits noted. Urine is clear. Derm: Skin is pale. Musculoskeletal: Range of motion: intact in all extremities, patient able to ambulate to restroom without difficulty. 22:20 Neuro: Level of Consciousness is awake, alert, obeys commands, Oriented to person, tw5 place, time, situation. Vital Signs: 22:17 BP 117 / 60; Pulse 76; Resp 18; Temp 98.6; Pulse Ox 97% ; Weight 122.47 kg; Height 5 tw5 ft. 4 in. (162.56 cm); Pain 5/10; 22:20 BP 117 / 67; Pulse 79; Resp 18; Pulse Ox 97% on R/A; tw5 22:17 Body Mass Index 46.34 (122.47 kg, 162.56 cm) tw5 ED Course: 21:44 Patient arrived in ED. hb 21:48 Christophe Mayer MD is Attending Physician. edwardo 22:08 Kelsie Larkin is Primary Nurse. tw5 22:18 Triage completed. tw5 22:18 Arm band placed on Patient placed in an exam room. tw5 22:20 Awaiting lab results. tw5 22:20 Placed in gown. Bed in low position. Call light in reach. Side rails up X2. Seizure tw5 precautions initiated. Client placed on continuous cardiac and pulse oximetry monitoring. NIBP monitoring applied. Door closed. Noise minimized. Moved to private room. Warm blanket given. Verbal reassurance given. 22:20 Initial lab(s) drawn, by me, sent to lab. Urine collected: clean catch specimen, clear, tw5 EKG done. Inserted saline lock: 20 gauge in right antecubital area, using aseptic technique. Blood collected. 22:21 PT-INR Sent. tw5 22:21 Troponin HS Sent. tw5 22:22 LFT's Sent. tw5 22:22 Magnesium Sent. tw5 22:22 Basic Metabolic Panel Sent. tw5 22:22 NT PRO-BNP Sent. tw5 22:22 CBC with Diff Sent. tw5 22:22 Lipase Sent. tw5 22:25 XRAY Chest (1 view) In Process Unspecified. EDMS 22:50 Notified ED physician of a critical lab result(s). potassium 6.4. tw5 22:58 Head Brain Wo Cont In Process Unspecified. EDMS 22:59 Stone Protocol In Process Unspecified. EDMS 23:07 Boone Pate MD is Hospitalizing Provider. edwardo Administered Medications: 22:22 Drug: NS 0.9% 500 ml Route: IV; Rate: bolus; Site: right antecubital; tw 22:22 Drug: NS 0.9% 1000 ml Route: IV; Rate: 125 ml/hr; Site: right antecubital; tw5 22:22 Drug: Keppra (levETIRAcetam) 1000 mg Route: IV; Rate: per protocol; Site: right tw5 antecubital; 10/27 00:31 Drug: Kayexalate (polystyrene) 60 grams Route: PO; vc1 00:31 Drug: Albuterol - atroVENT (ipratropium) (3:1) (2.5 mg - 0.5 mg) 3 ml Route: Nebulizer; vc1 Medication: 10/26 22:20 VIS not applicable for this client. tw5 Outcome: 23:10 Decision to Hospitalize by Provider. [facility] 10/27 22:02 Patient left the ED. lp1 Signatures: Dispatcher [employer] EDChristophe Lo MD MD cha Pena, Laura, RN RN lp1 Lorin Barber RN RN hb Wood, Tiffany tw5 Luz Villegas RN RN vc1
--- NOTE | 2021-10-26 23:10 | EDPHYS ---
Physician Documentation [facility] Name: Tabtaha Chambers Age: 55 yrs Sex: Female : 1965 Arrival Date: 10/26/2021 Time: 21:44 Bed 27 Private MD: ED Physician Christophe Mayer HPI: 10/26 21:55 This 55 yrs old Female presents to ER via Unassigned with complaints of edwardo possible seizure. 21:55 possible seizure. edwardo AUTO TECH: 22:18 LMP N/A - Post-menopause tw5 Historical: - Allergies: 22:18 No Known Allergies; tw5 - PMHx: 22:18 Hypertension; Seizures; tw5 - PSHx: 22:18 ankle SX; Cholecystectomy; tubes tied; tw - Immunization history:: Flu vaccine is up to date. - Social history:: Smoking status: Patient denies any tobacco usage or history of. - Family history:: not pertinent. ROS: 22:02 Constitutional: Negative for fever, chills, and weight loss, Eyes: Negative for injury, edwardo pain, redness, and discharge, ENT: Negative for injury, pain, and discharge, Neck: Negative for injury, pain, and swelling, Cardiovascular: Negative for chest pain, palpitations, and edema, Respiratory: Negative for shortness of breath, cough, wheezing, and pleuritic chest pain, Abdomen/GI: Negative for abdominal pain, nausea, vomiting, diarrhea, and constipation, Back: Negative for injury and pain, : Negative for injury, bleeding, discharge, and swelling, MS/Extremity: Negative for injury and deformity, Psych: Negative for depression, anxiety, suicide ideation, homicidal ideation, and hallucinations, Allergy/Immunology: Negative for hives, rash, and allergies, Endocrine: Negative for neck swelling, polydipsia, polyuria, polyphagia, and marked weight changes, Hematologic/Lymphatic: Negative for swollen nodes, abnormal bleeding, and unusual bruising. 22:02 Skin: Positive for pallor. Exam: 22:02 Constitutional: This is a well developed, well nourished patient who is awake, alert, edwardo and in no acute distress. Head/Face: Normocephalic, atraumatic. Eyes: Pupils equal round and reactive to light, extra-ocular motions intact. Lids and lashes normal. Conjunctiva and sclera are non-icteric and not injected. Cornea within normal limits. Periorbital areas with no swelling, redness, or edema. ENT: Nares patent. No nasal discharge, no septal abnormalities noted. Tympanic membranes are normal and external auditory canals are clear. Oropharynx with no redness, swelling, or masses, exudates, or evidence of obstruction, uvula midline. Mucous membranes moist. Neck: Trachea midline, no thyromegaly or masses palpated, and no cervical lymphadenopathy. Supple, full range of motion without nuchal rigidity, or vertebral point tenderness. No Meningismus. Chest/axilla: Normal chest wall appearance and motion. Nontender with no deformity. No lesions are appreciated. Cardiovascular: Regular rate and rhythm with a normal S1 and S2. No gallops, murmurs, or rubs. Normal PMI, no JVD. No pulse deficits. Respiratory: Lungs have equal breath sounds bilaterally, clear to auscultation and percussion. No rales, rhonchi or wheezes noted. No increased work of breathing, no retractions or nasal flaring. Abdomen/GI: Soft, non-tender, with normal bowel sounds. No distension or tympany. No guarding or rebound. No evidence of tenderness throughout. Back: No spinal tenderness. No costovertebral tenderness. Full range of motion. Female : Normal external genitalia. MS/ Extremity: Pulses equal, no cyanosis. Neurovascular intact. Full, normal range of motion. Neuro: Awake and alert, GCS 15, oriented to person, place, time, and situation. Cranial nerves II-XII grossly intact. Motor strength 5/5 in all extremities. Sensory grossly intact. Cerebellar exam normal. Normal gait. Psych: Awake, alert, with orientation to person, place and time. Behavior, mood, and affect are within normal limits. 22:02 Skin: Appearance: Color: pale, Temperature: normal temperature, Moisture: normal moisture, petechiae, not noted, ecchymosis, not noted, abscess, not appreciated, cellulitis, is not appreciated, induration, is not appreciated, injury, is not appreciated. 23:11 ECG was reviewed by the Attending Physician. [facility] Vital Signs: 22:17 BP 117 / 60; Pulse 76; Resp 18; Temp 98.6; Pulse Ox 97% ; Weight 122.47 kg; Height 5 tw5 ft. 4 in. (162.56 cm); Pain 5/10; 22:20 BP 117 / 67; Pulse 79; Resp 18; Pulse Ox 97% on R/A; tw5 22:17 Body Mass Index 46.34 (122.47 kg, 162.56 cm) tw5 MDM: 21:48 Patient medically screened. edwardo 22:05 Differential Diagnosis altered mental status. Differential diagnosis: cerebral vascular edwardo accident, cardiac arrhythmia, seizure. Data reviewed: vital signs, nurses notes, lab test result(s), EKG, radiologic studies, CT scan, plain films. Data interpreted: athletic monitor: rate is 82 beats/min, Pulse oximetry: on room air is 95 %. Test interpretation: by ED physician or midlevel provider: ECG, plain radiologic studies. Counseling: I had a detailed discussion with the patient and/or guardian regarding: the historical points, exam findings, and any diagnostic results supporting the discharge/admit diagnosis, lab results, radiology results. 10/26 21:54 Order name: Basic Metabolic Panel; Complete Time: 22:52 [facility] 10/26 21:54 Order name: CBC with Diff; Complete Time: 22:52 [facility] 10/26 21:54 Order name: LFT's; Complete Time: 22:52 [facility] 10/26 21:54 Order name: Magnesium; Complete Time: 22:52 [facility] 10/26 21:54 Order name: NT PRO-BNP; Complete Time: 22:52 [facility] 10/26 21:54 Order name: PT-INR; Complete Time: 22:52 [facility] 10/26 21:54 Order name: Troponin HS; Complete Time: 22:52 [facility] 10/26 21:54 Order name: Lipase; Complete Time: 22:52 [facility] 10/26 21:54 Order name: UDS; Complete Time: 23:04 [facility] 10/26 22:17 Order name: Urine Dipstick-Ancillary; Complete Time: 22:52 EDMS 10/26 22:19 Order name: Urine --Ancillary (enter results); Complete Time: 22:52 4 10/26 22:53 Order name: Chem 7: stat; Complete Time: 01:50 edwardo 10/27 00:52 Order name: Ferritin ds4 10/27 01:09 Order name: SARS RAPID ke1 10/26 21:54 Order name: XRAY Chest (1 view); Complete Time: 22:52 [facility] 10/26 22:02 Order name: CT Head Brain wo Cont [facility] 10/26 22:02 Order name: CT Stone Protocol [facility] 10/26 22:16 Order name: Head Brain Wo Cont; Complete Time: 23:04 EDLA 10/27 01:43 Order name: Ferritin; Complete Time: 01:50 EDLA 10/27 01:55 Order name: SARS-COV-2 Antigen Rapid; Complete Time: 02:04 EDLA 10/27 05:43 Order name: Phosphorus; Complete Time: 20:31 EDMS 10/27 05:43 Order name: Creatine Phosphokinase; Complete Time: 20:31 EDMS 10/27 05:43 Order name: Troponin High Sensitivity; Complete Time: 20:31 EDLA 10/27 06:42 Order name: Type and Screen; Complete Time: 07:04 EDLA 10/27 06:46 Order name: ABO/RH no charge; Complete Time: 07:04 EDLA 10/27 07:21 Order name: Glucose, Ancillary Testing; Complete Time: 20:31 EDLA 10/27 07:29 Order name: Potassium; Complete Time: 20:31 [facility] 10/27 11:27 Order name: Basic Metabolic Panel; Complete Time: 20:31 EDLA 10/27 13:24 Order name: Glucose, Ancillary Testing; Complete Time: 20:31 [facility] 10/27 20:25 Order name: Basic Metabolic Panel; Complete Time: 20:31 [facility] 10/26 21:54 Order name: EKG; Complete Time: 21:55 [facility] 10/26 21:54 Order name: Cardiac monitoring; Complete Time: 22:22 [facility] 10/26 21:54 Order name: EKG - Nurse/Tech; Complete Time: 22:22 [facility] 10/26 21:54 Order name: IV Saline Lock; Complete Time: 22:22 [facility] 10/26 21:54 Order name: Labs collected and sent; Complete Time: 22:22 [facility] 10/26 21:54 Order name: O2 Per Protocol; Complete Time: 22:22 [facility] 10/26 21:54 Order name: O2 Sat Monitoring; Complete Time: 00:35 [facility] 10/26 21:54 Order name: Urine Dipstick-Ancillary (obtain specimen); Complete Time: 22:21 [facility] 10/26 21:54 Order name: Urine Test (obtain specimen); Complete Time: 22:21 [facility] 10/26 21:54 Order name: Seizure Precautions; Complete Time: 22:21 edwardo 10/26 22:18 Order name: Stone Protocol; Complete Time: 23:20 EDMS EC:11 Rate is 79 beats/min. Rhythm is regular. QRS [place] is Normal. AL interval is normal. QRS edwardo interval is normal. QT interval is normal. No Q waves. T waves are Normal. No ST changes noted. Clinical impression: NSR w/ Non-specific ST/T Changes and No evidence of ischemia. Interpreted by me. Reviewed by me. Administered Medications: 22: Drug: NS 0.9% 500 ml Route: IV; Rate: bolus; Site: right antecubital; tw5 22:22 Drug: NS 0.9% 1000 ml Route: IV; Rate: 125 ml/hr; Site: right antecubital; tw5 22:22 Drug: Keppra (levETIRAcetam) 1000 mg Route: IV; Rate: per protocol; Site: right tw5 antecubital; 10/27 00:31 Drug: Kayexalate (polystyrene) 60 grams Route: PO; vc1 00:31 Drug: Albuterol - atroVENT (ipratropium) (3:1) (2.5 mg - 0.5 mg) 3 ml Route: Nebulizer; vc1 Disposition Summary: 10/26/21 23:10 Hospitalization Ordered Hospitalization Status: Inpatient Admission edwardo Provider: Boone Pate cha Condition: Fair edwardo Problem: new edwardo Symptoms: have improved edwardo Bed/Room Type: Standard edwardo Location: Telemetry/MedSurg (Inpatient)(10/27/21 20:25) Room Assignment: 208(10/27/21 20:25) Diagnosis - Weakness edwardo - Obesity, unspecified edwardo - Acute kidney failure, unspecified - on chronic edwardo - Hyperkalemia - 6.4(10/26/21 23:11) edwardo - Anemia, unspecified edwardo Forms: - Medication Reconciliation Form edwardo - SBAR form edwardo Signatures: Dispatcher [employer] EDMS Margo Wayne, ERIBERTOC LOBITO-Christophe Colon MD MD cha Waters, Shelly, FNP-C FNP-Haley West RN RN cg Wood, Tiffany tw5 Calcote, Luz, RN RN vc1 Corrections: (The following items were deleted from the chart) 10/26 23:11 23:10 Hyperkalemia edwardo edwardo 10/27 00:03 10/26 23:10 Telemetry/MedSurg (Inpatient) edwardo cg 10/27 00:03 10/26 23:10 edwardo cg 10/27 20:25 00:03 [facility] ER HOLD cg cg 20:25 00:03 ERHOLD- cg cg
--- NOTE | 2021-10-26 23:10 | RAD REPORT ---
EXAM DESCRIPTION: CT - Stone Protocol - 10/26/2021 10:58 pm CLINICAL HISTORY: Abdominal pain. Flank pain COMPARISON: 2014 TECHNIQUE: Computed axial tomography of the abdomen pelvis was obtained without oral or IV contrast. Lack of IV and oral contrast limits evaluation of solid organs, appendix, bowel, and vessels. Peres l reformatted images were obtained and reviewed. All CT scans are performed using dose optimization technique as appropriate and may include automated exposure control or mA/KV adjustment according to patient size. FINDINGS: A renal calculus is not seen. An ureteral calculus is not noted. A bladder calculus is not present. Cholecystectomy The liver, spleen, pancreas and adrenals appear grossly normal There is no evidence of diverticulitis. The appendix appears normal Small umbilical hernia. Ashu sacralization right aspect L5 IMPRESSION: Negative for a genitourinary calculus
[2021-10-27] MEDS ORDERED: SOD POLYSTYREN SUL 15 GM/60 ML UCUP ONE (00:25)
[2021-10-27] MEDS ORDERED: IPRATROPIUM BROM 0.5MG/2.5ML ONE (00:27)
[2021-10-27] MEDS ORDERED: ALBUTEROL 2.5 MG/3 ML NEB SOL ONE (00:27)
[2021-10-27 01:31] LABS: Potassium 6.4 mmol/L (3.5-5.1)
[2021-10-27 01:55] LABS: SARS-CoV-2 Antigen Rapid Res Negative (Negative)
[2021-10-27] MEDS ORDERED: D50W 25 GM/50 ML SYRINGE IV PRN ×2 (02:12→22:31)
[2021-10-27] MEDS ORDERED: GLUCAGON 1 MG/VIAL IM PRN ×2 (02:12→22:31)
[2021-10-27] MEDS ORDERED: CALCIUM GLUC 10% INJ 9.3 MEQ in NA CHLORIDE 0.9% 100 ML IV ONE (02:12)
[2021-10-27] MEDS ORDERED: D10W 250 ML IV ONE ×2 (02:12→23:00)
[2021-10-27] MEDS ORDERED: D50W 25 GM/50 ML SYRINGE IV ONE ×2 (02:12→22:31)
[2021-10-27] MEDS ORDERED: INSULIN -REGULAR HUMAN 50 UNIT/0.5 ML ML IV ONE (02:12)
[2021-10-27] MEDS ORDERED: D10W 125 ML IV PRN (02:24)
[2021-10-27] MEDS ORDERED: INSULIN -REGULAR HUMAN 50 UNIT/0.5 ML ML ONE ×2 (02:33→02:47)
[2021-10-27] MEDS ORDERED: DEXTROSE 10%-WATER 250 ML IV ONE (02:45)
[2021-10-27] MEDS ORDERED: DEXTROSE 10%-WATER 500 ML IV ONE ×2 (02:54→23:43)
[2021-10-27 03:50] VITALS: BMI 46.3
--- NOTE | 2021-10-27 03:58 | P.HP ---
Certification for Inpatient Patient admitted to: Inpatient With expected LOS: >2 Midnights Patient will require the following post-hospital care: None Practitioner: I am a practitioner with admitting privileges, knowledge of patient current condition, hospital course, and medical plan of care. Services: Services provided to patient in accordance with Admission requirements found in Title 42 Section 412.3 of the Code of Federal Regulations <Mari Holguin - Last Filed: 10/27/21 04:07> Patient History Date of Service: 10/27/21 Primary Care Provider: Dr. Chiu Reason for admission: Hyperkalemia, Weakness, Chest pain Home medications list reviewed: Yes - Past Medical/Surgical History Has patient received pneumonia vaccine in the past: No Diabetic: No -: schizophrenia -: bipolar -: htn -: tubal ligation -: left ankle -: ectopic - Family History Mother -: Hypertension, Diabetes, Stroke - Social History Smoking Status: Former smoker Alcohol use: No CD- Drugs: Yes Caffeine use: No Place of Residence: Home (Pt lives with her Daughter, her Daughter is her caregiver) <Mari Holguin - Last Filed: 10/27/21 04:07> Date of Service: 10/27/21 <Chen Dickerson - Last Filed: 10/27/21 22:35> Allergies No Known Drug Allergies Allergy (Verified 07/10/20 04:29) Unknown Home Medications: Aspirin [Aspirin EC 81 MG] 81 mg DAILY 07/04/19 Atorvastatin Calcium 20 tab DAILY 07/04/19 Buprenorphine HCl/Naloxone HCl [Suboxone 2 mg-0.5 mg Sl Film] 2 film SL TID 07/04/19 Cetirizine HCl [Allergy Relief] 10 mg PO DAILY 07/04/19 Cyanocobalamin (Vitamin B-12) [Vitamin B12] 2,500 mcg DAILY 07/04/19 Propranolol [Inderal*] 10 mg PO TID 07/04/19 Quetiapine Fumarate [Seroquel] 200 tab BEDTIME 07/04/19 Ropinirole HCl 1 tab BID 07/04/19 Tizanidine [Zanaflex*] 4 tab PO TIDP PRN 07/04/19 lisinopriL [Lisinopril] 20 tab DAILY 07/04/19 Atorvastatin Calcium [Lipitor*] 20 mg PO BEDTIME 07/11/20 Divalproex Sodium [Depakote] 500 mg PO BID 07/11/20 Physical Examination - Physical Exam General: Alert, Oriented x3, Disheveled, Obese HEENT: Atraumatic, Normocephalic, Other (severe pallor with dark circles around eyes) Neck: Supple, 2+ carotid pulse no bruit Respiratory: Clear to auscultation bilaterally Cardiovascular: No edema Capillary refill: <2 Seconds Gastrointestinal: Hypoactive Musculoskeletal: No clubbing Integumentary: No rashes - Studies Laboratory Data (last 24 hrs) 10/26/21 22:04: PT 10.4, INR 0.95 10/26/21 22:04: WBC 6.60, Hgb 10.8 L, Hct 32.7 L, Plt Count 231 10/26/21 22:04: Sodium 136, Potassium 6.4 H*, BUN 46 H, Creatinine 1.39 H, Glucose 100, Magnesium 2.0, Total Bilirubin 0.2, AST 12 L, ALT 12, Alkaline Phosphatase 91, Lipase 35 L <Mari Holguin - Last Filed: 10/27/21 04:07> - Studies Laboratory Data (last 24 hrs) 10/26/21 22:04: WBC 6.60, Hgb 10.8 L, Hct 32.7 L, Plt Count 231 10/26/21 22:04: Sodium 136, Potassium 6.4 H*, BUN 46 H, Creatinine 1.39 H, Glucose 100, Magnesium 2.0, Total Bilirubin 0.2, AST 12 L, ALT 12, Alkaline Phosphatase 91, Lipase 35 L <Chen Dickerson - Last Filed: 10/27/21 22:35> Assessment and Plan - Problems (Diagnosis) (1) MARLENA (acute kidney injury) Current Visit: No Status: Acute Plan: Serial labs to evaluate electrolyte derangement and manage fluid balance Electrolyte replacement protocol I&O Daily weight (2) Hyperkalemia Current Visit: No Status: Acute Plan: Serial labs to evaluate management of hyperkalemia Initiation of hyperkalemia protocol Reassessment EKG and troponin evaluation - Advance Directives Does patient have a Living Will: No Does patient have a Durable POA for Healthcare: No - Code Status/Comfort Care Code Status Assessed: Yes (Full) Time Spent Managing Pts Care (In Minutes): 70 <Mari Holguin - Last Filed: 10/27/21 04:07>
[2021-10-27] MEDS: NA CHLORIDE 0.9% 1,000 ML IV SCH ×3 (04:00→22:25)
[2021-10-27 05:43] LABS: Phosphorus 2.7 mg/dL (2.5-4.9); Troponin High Sensitivity 6.4 pg/mL (<58.9)
[2021-10-27] MEDS: NA CHLORIDE 0.9% 250 ML IV SCH ×9 (06:00→22:00)
[2021-10-27 07:29] LABS: Potassium 6.1 mmol/L (3.5-5.1)
--- NOTE | 2021-10-27 08:07 | EKG ---
Test Date: 2021-10-26 Test Time: 22:00:14 Handle Sewer: MEASUREMENT RESULTS: Intervals: Rate: 79 WV: 154 QRSD: 78 QT: 344 QTc: 394 Raymond: P: 58 WV: 154 QRS: 18 T: 48 INTERPRETIVE STATEMENTS: Normal sinus rhythm Normal ECG Compared to ECG 07/09/2020 19:56:07 Sinus bradycardia no longer present Electronically Signed On 10-27-21 08:06:18 CDT by Iraj Lomas
[2021-10-27] MEDS: ASPIRIN EC 81 MG TAB PO SCH (09:00)
[2021-10-27] MEDS ORDERED: ACETAMINOPHEN 500 MG TAB ONE (09:16)
[2021-10-27] MEDS: ACETAMINOPHEN 500 MG TAB PO PRN ×2 (09:30→23:50)
[2021-10-27 11:26] LABS: Potassium 6.1 mmol/L (3.5-5.1)
[2021-10-27] MEDS: levETIRAcetam 500 MG in NA CHLORIDE 0.9% 100 ML IV SCH (18:00)
[2021-10-27] MEDS ORDERED: LEVETIRACETAM 500 MG/5 ML VIAL IV ONE (18:32)
[2021-10-27] MEDS ORDERED: NA CHLORIDE 0.9% 1,000 ML ONE (18:32)
[2021-10-27] MEDS ORDERED: NA CHLORIDE 0.9% 100 ML ONE (18:32)
[2021-10-27 20:25] LABS: Potassium 6.3 mmol/L (3.5-5.1)
[2021-10-27] MEDS ORDERED: ONDANSETRON 4 MG/2 ML VIAL ONE (20:32)
[2021-10-27] MEDS ORDERED: SOD POLYSTYREN SUL 15 GM/60 ML UCUP PO ONE (20:36)
[2021-10-27] MEDS: ONDANSETRON 4 MG/2 ML VIAL IV PRN (20:38)
[2021-10-27] MEDS: TEMAZEPAM 15 MG CAP PO PRN (22:24)
[2021-10-27] MEDS ORDERED: NA CHLORIDE 0.9% 1,000 ML IV ONE (22:30)
[2021-10-28] MEDS ORDERED: LORazepam 2 MG/ML VIAL ONE (03:58)
[2021-10-28] MEDS ORDERED: LORazepam 2 MG/ML VIAL IV ONE (04:00)
[2021-10-28 04:43] LABS: Absolute Lymphocytes (CBC) 1.9 K/uL (0.7-4.9); Hematocrit 30.3 % (36.0-45.0); Lymphocytes % 31.7 % (15.3-44.8); MCV 87.8 fL (80-100); MPV 7.4 fL (7.6-11.3); RBC Red Blood Cell Count 3.45 M/uL (3.86-4.86)
[2021-10-28 04:51] LABS: Potassium 6.2 mmol/L (3.5-5.1)
[2021-10-28] MEDS: levETIRAcetam 500 MG in NA CHLORIDE 0.9% 100 ML IV SCH ×2 (05:06→17:00)
[2021-10-28] MEDS: FUROSEMIDE 20 MG/ 2ML VIAL IV SCH (05:07)
[2021-10-28] MEDS ORDERED: D50W 25 GM/50 ML SYRINGE IV PRN ×3 (08:48→23:17)
[2021-10-28] MEDS ORDERED: INSULIN -REGULAR HUMAN 50 UNIT/0.5 ML ML IV ONE ×2 (09:00→11:58)
[2021-10-28] MEDS ORDERED: CALCIUM GLUCONATE 1 GM IVPB 1 GM/50 ML BAG IV ONE ×2 (09:00→12:15)
[2021-10-28] MEDS: DEXTROSE 10%-WATER 125 ML IV PRN ×2 (09:21→12:19)
[2021-10-28] MEDS: ASPIRIN EC 81 MG TAB PO SCH (09:23)
[2021-10-28] MEDS: ACETAMINOPHEN 500 MG TAB PO PRN (09:24)
[2021-10-28 11:54] LABS: Potassium 5.6 mmol/L (3.5-5.1)
--- NOTE | 2021-10-28 13:48 | EKG ---
Test Date: 2021-10-28 Test Time: 09:01:45 State Appellate Clerk: SOULEYMANE MEASUREMENT RESULTS: Intervals: Rate: 90 [place]: 146 QRSD: 80 QT: 356 QTc: 435 [place]: P: 68 [place]: 146 QRS: 47 T: 57 INTERPRETIVE STATEMENTS: Normal sinus rhythm Normal ECG Compared to ECG 10/26/2021 22:00:14 No significant changes Electronically Signed On 10-28-21 13:47:45 CDT by [place]
[2021-10-28] MEDS: NA CHLORIDE 0.9% 1,000 ML IV SCH ×2 (17:00→20:05)
[2021-10-28] MEDS: clonazePAM 1 MG TAB PO SCH ×2 (17:01→20:04)
[2021-10-28] MEDS: TEMAZEPAM 15 MG CAP PO PRN (20:04)
[2021-10-28] MEDS: ONDANSETRON 4 MG/2 ML VIAL IV PRN (20:17)
[2021-10-28] MEDS ORDERED: INSULIN -REGULAR HUMAN 50 UNIT/0.5 ML ML SQ ONE (22:31)
--- NOTE | 2021-10-28 23:23 | P.PN ---
Subjective Date of Service: 10/28/21 Subjective: No new changes, No C/O voiced, Improving Review of Systems 10-point ROS is otherwise unremarkable Physical Examination - Vital Signs Temperature: 97.1 F Blood Pressure: 141/70 Pulse: 85 Respirations: 19 Pulse Ox (%): 97 - Physical Exam General: Alert, In no apparent distress HEENT: Atraumatic, PERRLA, EOMI Neck: Supple, JVD not distended Respiratory: Clear to auscultation bilaterally, Normal air movement Cardiovascular: Regular rate/rhythm, Normal S1 S2 Gastrointestinal: Normal bowel sounds, No tenderness Musculoskeletal: No tenderness Integumentary: No rashes Neurological: Normal speech, Normal tone, Normal affect Lymphatics: No axilla or inguinal lymphadenopathy - Studies Medications List Reviewed: Yes Assessment & Plan - Problems (Diagnosis) (1) Pseudoseizure Current Visit: Yes Status: Acute (2) Hyperkalemia Current Visit: No Status: Acute (3) TIA (transient ischemic attack) Current Visit: No Status: Acute (4) Bipolar disorder Current Visit: No Status: Chronic Qualifiers: Active/Remission status: remission status unspecified Qualified Code(s): F31.9 - Bipolar disorder, unspecified (5) Schizophrenia Current Visit: No Status: Chronic Qualifiers: Schizophrenia type: unspecified Qualified Code(s): F20.9 - Schizophrenia, unspecified - Plan PLAN: 1. Continue with antiepileptics 2. Monitor potassium 3. Repeat labs 4. Strict BP control 5. GI/DVT prophylaxis Discharge Plan: Home Plan to discharge in: Greater than 2 days - Advance Directives Does patient have a Living Will: No Does patient have a Durable POA for Healthcare: No - Code Status/Comfort Care Code Status Assessed: Yes Code Status: Full Code Critical Care: No Time Spent Managing PTS Care (In Minutes): 35
[2021-10-29] MEDS: DEXTROSE 10%-WATER 125 ML IV PRN (00:03)
[2021-10-29] MEDS: QUETIAPINE 100MG TAB PO SCH ×2 (01:42→08:43)
[2021-10-29] MEDS: FUROSEMIDE 20 MG/ 2ML VIAL IV SCH (05:09)
[2021-10-29] MEDS: NA CHLORIDE 0.9% 1,000 ML IV SCH (05:09)
[2021-10-29] MEDS: levETIRAcetam 500 MG in NA CHLORIDE 0.9% 100 ML IV SCH (05:10)
[2021-10-29 05:53] LABS: Potassium 5.5 mmol/L (3.5-5.1)
[2021-10-29] MEDS ORDERED: FUROSEMIDE 20 MG/ 2ML VIAL IV ONE (06:00)
[2021-10-29 07:58] VITALS: TEMP 97
[2021-10-29] MEDS ORDERED: ALPRAZOLAM 1 MG TABLET PO PRN (08:35)
[2021-10-29] MEDS: clonazePAM 1 MG TAB PO SCH (08:43)
[2021-10-29] MEDS: ASPIRIN EC 81 MG TAB PO SCH (08:43)
[2021-10-29 08:58] VITALS: O2SAT 95
[2021-10-29] MEDS ORDERED: levETIRAcetam 500 MG TAB PO SCH (09:00)
[2021-10-29] MEDS ORDERED: HOME MED 1 EA UNK (Duloxetine Hcl [Cymbalta] 60 MG Capsule.Dr) PO SCH (09:00)
[2021-10-29] MEDS ORDERED: DULOXETINE 30 MG CAP PO SCH (09:00)
[2021-10-29] MEDS ORDERED: DIVALPROEX DR 500MG TAB PO SCH (09:00)
[2021-10-29] MEDS ORDERED: PROPRANOLOL HCL 10 MG TAB PO SCH (09:00)
[2021-10-29 11:31] LABS: Potassium 5.3 mmol/L (3.5-5.1)
[2021-10-29 12:44] VITALS: BP 114/83
--- NOTE | 2021-10-29 13:51 | P.DS ---
Discharge Date: 10/29/21 Primary Care Provider: Dr. Chiu Disposition: ROUTINE DISCHARGE Discharge Condition: GOOD Reason for Admission: Hyperkalemia, Weakness, Chest pain - Problems (1) Pseudoseizure Current Visit: Yes Status: Acute (2) Hyperkalemia Current Visit: No Status: Acute (3) TIA (transient ischemic attack) Current Visit: No Status: Acute (4) Bipolar disorder Current Visit: No Status: Chronic Qualifiers: Active/Remission status: remission status unspecified Qualified Code(s): F31.9 - Bipolar disorder, unspecified (5) Schizophrenia Current Visit: No Status: Chronic Qualifiers: Schizophrenia type: unspecified Qualified Code(s): F20.9 - Schizophrenia, unspecified Brief History of Present Illness: HPI: Pt states she has been feeling weak, awoke screaming and feeling odd. Pt states she did have some chest pressure and thought she may have had a seizure. Pt states her last seizure was a few days ago but she had not had one for about a year prior to that. She came to [facility] ED and was given Keppra. No seizure activity noted. Her labs did reveal hyperkalemia at 6.4 which is similar to a visit about five years ago. Creatinine at this time is stable. Hospital Course: Is clinically doing better. She is to stop Aldactone. She is also advised to stop lisinopril. She will be discharged on Lasix. At this time she will be discharged with home health and outpatient labs in 1 week. Vital Signs/Physical Exam: Temp Pulse Resp BP Pulse Ox 97 F 91 H 18 114/83 95 10/29/21 07:58 10/29/21 12:00 10/29/21 12:00 10/29/21 12:00 10/29/21 12:00 General: Alert, In no apparent distress, Oriented x3 Laboratory Data at Discharge: WBC 6.00 K/uL (4.3-10.9) 10/28/21 04:18 Hgb 9.8 g/dL (12.0-15.0) L 10/28/21 04:18 Hct 30.3 % (36.0-45.0) L 10/28/21 04:18 Plt Count 200 K/uL (152-406) 10/28/21 04:18 PT 10.4 SECONDS (9.5-12.5) 10/26/21 22:04 INR 0.95 10/26/21 22:04 Sodium 139 mmol/L (136-145) 10/29/21 11:07 Potassium 5.3 mmol/L (3.5-5.1) H 10/29/21 11:07 BUN 24 mg/dL (7-18) H 10/29/21 11:07 Creatinine 1.40 mg/dL (0.55-1.3) H 10/29/21 11:07 Glucose 145 mg/dL (74-106) H 10/29/21 11:07 Phosphorus 2.7 mg/dL (2.5-4.9) 10/27/21 05:14 Magnesium 2.0 mg/dL (1.8-2.4) 10/26/21 22:04 Total Bilirubin 0.2 mg/dL (0.2-1.0) 10/26/21 22:04 AST 12 U/L (15-37) L 10/26/21 22:04 ALT 12 U/L (12-78) 10/26/21 22:04 Alkaline Phosphatase 91 U/L (45-117) 10/26/21 22:04 Lipase 35 U/L (73-393) L 10/26/21 22:04 Home Medications: Atorvastatin Calcium 20 tab DAILY 07/04/19 Propranolol [Inderal*] 10 mg PO TID 07/04/19 Quetiapine Fumarate [Seroquel] 200 tab BID 07/04/19 Tizanidine [Zanaflex*] 4 tab PO TIDP PRN 07/04/19 Divalproex Sodium [Depakote] 500 mg PO BID 07/11/20 Alprazolam [Xanax] 1 mg PO DAILY PRN 10/28/21 Duloxetine HCl [Cymbalta] 1 tab PO DAILY 10/28/21 levETIRAcetam [Keppra*] 1 tab PO BID 10/28/21 Furosemide [Lasix] 20 mg PO DAILY #30 tab 10/29/21 Na Bicarb Tab [Sodium Bicarb 325 MG] 325 mg PO BID #60 tab 10/29/21 Potassium Chloride [K-Dur] 10 meq PO M,W,F #12 10/29/21 New Medications: Potassium Chloride [K-Dur] 10 meq PO M,W,F #12 Furosemide [Lasix] 20 mg PO DAILY #30 tab Na Bicarb Tab [Sodium Bicarb 325 MG] 325 mg PO BID #60 tab Physician Discharge Instructions: OK TO DC IV AND DC HOME FOLLOW-UP WITH PRIMARY CARE PROVIDER IN 1-2 WEEKS FOLLOW-UP WITH NEUROLOGY IN 1-2 WEEKS RETURN TO THE ER IF symptoms worsens CALL DR. VIDALES AT [phone] IF ANY QUESTIONS REGARDING HOSPITAL STAY. PLEASE CALL THE FLOOR AT [phone] IF ANY MEDICATION OR NURSING QUESTIONS. No potassium supplement for 1 week Diet: Renal Activity: Fall precautions Followup: NONE,NONE [Primary Care Provider] - Time spent managing pt's care (in minutes): 35
[2021-10-29] MEDS ORDERED: ATORVASTATIN 40 MG TAB PO SCH (21:00)
[2021-10-29] MEDS ORDERED: INSULIN -REGULAR HUMAN 50 UNIT/0.5 ML ML IV ONE (23:18)
== END 2021-10-29 16:10 | disposition home health service (06) | DRG 101 ==
LOC: ER 21:43 → ERHOLD 10-27 00:10 → 2ND 10-27 22:47
PROVIDERS: ADMIT Hospitalist; ATTEND Hospitalist
DX: R56.9 Unspecified convulsions (principal); N17.9 Acute kidney failure, unspecified; Z68.42 Body mass index [BMI] 45.0-49.9, adult; E66.9 Obesity, unspecified; I10 Essential (primary) hypertension; F20.9 Schizophrenia, unspecified; F31.9 Bipolar disorder, unspecified; E87.5 Hyperkalemia; D64.9 Anemia, unspecified; Z87.891 Personal history of nicotine dependence; Z79.82 Long term (current) use of aspirin; Z90.49 Acquired absence of other specified parts of digestive tract; Z79.899 Other long term (current) drug therapy; Z20.822 Contact with and (suspected) exposure to COVID-19
CPT/HCPCS: 36415; 70450; 71045; 74176; 76377; 80048; 80076; 80307; 81003; 81025; 82088; 82550; 82728; 82947; 83690; 83735; 83880; 84100; 84132; 84244; 84484; 85025; 85610; 86850; 86900; 86901; 87811; 93005; 94640; 96374; 99284; J0610; J1815; J1940; J1953; J2405; J7030

== ENCOUNTER 2021-11-28 20:17 | Observation (INO) | payer OTHER ==
--- OUTSIDE RECORDS SUMMARY | 2021-11-28 20:27 | XMS REPORT | Continuity of Care Document ---
:1965 Author Organization [facility] t Address [address] [place] [address] Care Team Providers Name Role Phone Bishop Valeriy ROBIN Primary Care Physician [phone] JARAD LÓPEZ Attending Clinician Unavailable JARAD LÓPEZ Attending Clinician Unavailable Doctor Unassigned, [facility] Attending Clinician Unavailable RAAD UREÑA Attending Clinician Unavailable Raad Ureña MD Attending Clinician CHRIS SPENCE Attending Clinician Unavailable Jodie Ruiz MD Attending Clinician Deloris Escobar Attending Clinician [phone] Shelly Taveras Attending Clinician Unavailable Antonietta Garcia Attending Clinician Unavailable Sarika Michael Attending Clinician Unavailable Gail Morse Attending Clinician Deloris Escobar Unavailable [phone] Payers Payer Name Policy Type Policy Number Effective Date Expiration Date [facility] [id number] 2016 MEDICAID 00:00:00 [facility] [id number] 2021 (MEDICARE 00:00:00 REPLACEMENT HMO) [facility] DUAL [id number] 2020 COMP HMO D SNP 00:00:00 Problems Condition Condition Condition Status Onset Resolution Last Treating Co mments Source Name Details Category Date Date Treatment Clinician Date ANXIETY Condition Active 2018-032019-02-14 Tricia Escobar DISORDER, 2-10 14:12:47 Deloris Com alexsandra UNSPECIFIE 00:00: ty D 00 Health SCHIZOAFFE Condition Active 2018-032019-02-14 Tico Escobar CTIVE - 14:12:47 Deloris Commun i DISORDER, 00:00: ty [...] psychotic psychotic ICD10 features features 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 c 15:36:56 l (disorder) dependence He nicki (disorder) Active Problem 07/12/2017 Medical Group Drug Drug Problem Active 2017-07-12 Memor ia therapy therapy 15:36:56 l finding finding Ede (finding) (finding) Active Problem 07/12/2017 Medical Group Schizophre Schizophr Problem Active 2017-07-12 Memoria theo enia 15:36:56 l (disorder) (disorder) Sebastian caceres Active Problem 07/12/2017 Medical Group Seen by Seen by Problem Active 2017-07-12 Mi alis 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 15:36:56 l (finding) (finding) Brooke gong Active Problem 07/12/2017 Medical Group Benzodiaze Problem Resolve 2016-032017-07-12 2017-07-12 Memoria pine Benzodiaze d 0-08 15:36:56 15:36:56 l dependence pine 00:00: George zhou (disorder) dependence 00 (disorder) Resolved 12/13/2016 Problem 07/12/2017 Medical Group Allergies, Adverse Reactions, Alerts Allergy Allergy Status Severity Reaction(s) Onset Inactive Treating Comm ents Source Name Type Date Date Clinician No Known DA Active U 2020-03 [facility] Drug 0-12 Allergie 00:00: s 00 NO KNOWN Drug Active [facility] ALLERGIE Class ity of S [facility] Social History Social Habit Start Date Stop Date Quantity Comments Source Exposure to Not sure University of SARS-CoV-2 (event) [facility] Alcohol intake 2020-02-12 2020-02-12 University of 00:00:00 00:00:00 [facility] social history E&M 2019-02-14 2019-02-14 . mother [...] a divorce. Five kids Not homeless. [place]: [place] . lives with daughter Highest education level: [...] kids social history 2019-02-14 2019-02-14 reviewed today [facility] reviewed E&M 13:01:12 13:01:12 Health Social History 2016-12-07 2016-12-07 Levar torres 16:49:19 16:49:19 Sex [birth year] At [birth year] Universit [facility] 00:00:00 00:00:00 [facility] Smoking Status Start Date Stop Date Source Current every day 2020-02-12 00:00:00 [facility] smoker Medical Branch Ex-smoker (finding) 2019-02-14 13:01:12 2019-02-14 13:01:12 [facility] Medications Ordered Filled Start Stop Current Ordering Indication Dosage Frequency Signature Comments Components Source Medication Medication Date Date Medication? Clinician (SIG) Name Name Dose 2021-0 No Unknown 10-27 00:00: 00 &lt 2022-0 No 8-15 00:00: 00 &lt 2022-0 No 10 10-17 00:00: 00 &lt 2022-0 No 8-11 00:00: 00 Dose 2022-0 No Unknown 10-16 00:00: 00 Dose 2022-0 No 200 Unknown 10-16 00:00: 00 &lt 2022-0 No 10 - 00:00: 00 TAKE 1 2021-0 No 1 TABLET (1 8-11 MG TOTAL) 00:00: BY MOUTH 1 00 (ONE) TIME EACH DAY IF NEEDED FOR ANXIETY &lt 2022-0 No 8-11 00:00: 00 &lt 2022-0 No 60 10-16 00:00: 00 TAKE 1 2021-0 No 4 TABLET BY 8 MOUTH TWICE 00:00: A DAY 00 NEEDED FOR MUSCLE SPASMS TAKE 1 2021-0 No 60 CAPSULE BY 10-14 MOUTH EVERY 00:00: DAY FOR 00 DEPRESSION. DO NOT CRUSH OR CHEW Suboxone 8 0 No 1mg mg-2 mg - sublingual 00:00: film 00 &lt 2022-0 No 300 10-07 00:00: 00 TAKE 1 2021-0 No 100 TABLET BY 8- MOUTH AT 00:00: BEDTIME FOR 00 INSOMNIA Dose 2-0 No 200 Unknown 10-07 00:00: 00 TAKE 1 2021-0 No 1 TABLET (1 8-02 MG TOTAL) 00:00: BY MOUTH 2 00 (TWO) TIMES A DAY IF NEEDED FOR ANXIETY Dose 2022-0 No Unknown 8 00:00: 00 TAKE 1 2-0 No 10 TABLET BY 8- MOUTH AT 00:00: NIGHT IF 00 NEEDED FOR SLEEP. &lt 2022-0 No 500 8- 00:00: 00 &lt 2022-0 No 20 8 00:00: 00 &lt 2022-0 No 1 8 00:00: 00 TAKE 1 2022-0 No 100 TABLET BY 7- MOUTH 3 00:00: TIMES A 00 DAY. &lt 2022-0 No 10 09-30 00:00: 00 TAKE 1 2-0 No 4 TABLET BY 7- MOUTH TWICE 00:00: A DAY 00 NEEDED FOR MUSCLE SPASM &lt 2022-0 No 7 00:00: 00 &lt 2022-0 No 60 09-30 00:00: 00 &lt 2022-0 No 500 09-16 00:00: 00 Dose 2-0 No Unknown 09-16 00:00: 00 TAKE ONE 2-0 No 25 CAPSULE BY 7-12 MOUTH EVERY 00:00: 6 HOURS 00 NEEDED FOR ALLERGIES OR ANXIETY Suboxone 8 2021-0 No 1mg mg-2 mg 6-28 sublingual 00:00: film 00 &lt 2022-0 No 6-28 00:00: 00 Dose 2022-0 No Unknown 6-28 00:00: 00 &lt 2022-0 No 6-28 00:00: 00 RINSE WITH 2022-0 No 1 CAPFUL 6-28 TWICE A DAY 00:00: SPIT DO NOT 00 SWALLOW SPRAY 2 2021-0 No SPRAYS INTO 6-05 EACH 00:00: NOSTRIL 00 EVERY DAY Suboxone 8 2021-0 No 1mg mg-2 mg 5-31 sublingual 00:00: film 00 TAKE 1 2021-0 No TABLET BY 5-31 MOUTH EVERY 00:00: DAY AT 00 NIGHT &lt 2022-0 No 5-31 00:00: 00 &lt 2022-0 No 5-31 00:00: 00 &lt 2022-0 No 5-31 00:00: 00 Suboxone 8 2021-0 No 1mg mg-2 mg 4-12 sublingual 00:00: film 00 Dose 2-0 No Unknown 3-10 00:00: 00 Dose 2022-0 No Unknown 3-09 00:00: 00 Dose 2022-0 No Unknown 3-09 00:00: 00 Dose 2022-0 No Unknown 3-09 00:00: 00 Dose 2022-0 No Unknown 3-09 00:00: 00 Dose 2022-0 No Unknown 3-08 00:00: 00 Dose 2022-0 No Unknown 3-08 00:00: 00 Dose 2022-0 No Unknown 3-08 00:00: 00 Dose 2022-0 No Unknown 3-08 00:00: 00 Dose 2022-0 No Unknown 3-08 00:00: 00 Dose 2022-0 No Unknown 3-08 00:00: 00 Dose 2022-0 No Unknown 3-08 00:00: 00 Dose 2022-0 No Unknown 3-08 00:00: 00 Dose 2022-0 No Unknown 3-08 00:00: 00 Dose 2022-0 No Unknown 3-08 00:00: 00 Dose 2022-0 No Unknown 3-08 00:00: 00 Dose 2022-0 No Unknown 3-08 00:00: 00 Dose 2022-0 No Unknown 3-08 00:00: 00 Dose 2022-0 No Unknown 3-08 00:00: 00 Dose 2022-0 No Unknown 3-08 00:00: 00 Dose 2022-0 No Unknown 3-08 00:00: 00 Dose 2022-0 No Unknown 3-08 00:00: 00 Dose 2022-0 No Unknown 3-08 00:00: 00 Dose 2022-0 No Unknown 3-08 00:00: 00 Dose 2022-0 No Unknown 3-08 00:00: 00 Dose 2022-0 No Unknown 3-08 00:00: 00 Dose 2022-0 No Unknown 3-08 00:00: 00 Dose 2022-0 No Unknown 3-08 00:00: 00 Dose 2022-0 No Unknown 3-08 00:00: 00 Dose 2022-0 No Unknown 3-08 00:00: 00 Dose 2022-0 No Unknown 3-08 00:00: 00 Dose 2022-0 No Unknown 3-08 00:00: 00 Dose 2022-0 No Unknown 3-08 00:00: 00 Dose 2022-0 No Unknown 3-08 00:00: 00 Dose 2022-0 No Unknown 3-08 00:00: 00 Dose 2022-0 No Unknown 3-08 00:00: 00 Dose 2022-0 No Unknown 3-08 00:00: 00 Dose 2022-0 No Unknown 3-08 00:00: 00 Dose 2022-0 No Unknown 3-08 00:00: 00 Dose 2022-0 No Unknown 3-08 00:00: 00 Dose 2022-0 No Unknown 3-08 00:00: 00 Dose 2022-0 No Unknown 3-08 00:00: 00 Dose 2022-0 No Unknown 3-08 00:00: 00 Dose 2022-0 No Unknown 3-08 00:00: 00 Dose 2022-0 No Unknown 3-08 00:00: 00 Dose 2022-0 No Unknown 3-08 00:00: 00 Dose 2022-0 No Unknown 3-08 00:00: 00 Dose 2022-0 No Unknown 3-08 00:00: 00 Dose 2022-0 No Unknown 3-08 00:00: 00 Dose 2022-0 No Unknown 3-08 00:00: 00 Dose 2022-0 No Unknown 3-08 00:00: 00 Dose 2022-0 No Unknown 3-08 00:00: 00 Dose 2022-0 No Unknown 3-08 00:00: 00 Dose 2022-0 No Unknown 3-08 00:00: 00 Dose 2022-0 No Unknown 3-08 00:00: 00 Dose 2022-0 No Unknown 3-08 00:00: 00 Dose 2022-0 No Unknown 3-08 00:00: 00 Dose 2022-0 No Unknown 3-08 00:00: 00 Dose 2022-0 No Unknown 3-08 00:00: 00 Dose 2022-0 No Unknown 3-08 00:00: 00 Dose 2022-0 No Unknown 3-08 00:00: 00 Dose 2022-0 No Unknown 3-08 00:00: 00 Dose 2022-0 No Unknown 3-08 00:00: 00 Dose 2022-0 No Unknown 3-08 00:00: 00 Dose 2022-0 No Unknown 3-08 00:00: 00 Dose 2022-0 No Unknown 3-08 00:00: 00 Dose 2022-0 No Unknown 3-08 00:00: 00 Dose 2022-0 No Unknown 3-08 00:00: 00 Dose 2022-0 No Unknown 3-08 00:00: 00 Dose 2022-0 No Unknown 2-18 00:00: 00 Dose 2022-0 No Unknown 2-18 00:00: 00 Dose 2022-0 No Unknown 2-18 00:00: 00 Dose 2022-0 No Unknown 2-18 00:00: 00 Dose 2022-0 No Unknown 2-18 00:00: 00 Dose 2022-0 No Unknown 2-18 00:00: 00 Dose 2022-0 No Unknown 2-18 00:00: 00 Dose 2022-0 No Unknown 2-18 00:00: 00 Dose 2022-0 No Unknown 2-18 00:00: 00 Dose 2022-0 No Unknown 2-18 00:00: 00 Dose 2022-0 No Unknown 2-18 00:00: 00 Dose 2022-0 No Unknown 2-17 00:00: 00 Dose 2022-0 No Unknown 1-19 00:00: 00 Suboxone 8 2020-1 No 1mg mg-2 mg 2-16 sublingual 00:00: film 00 Suboxone 8 2020-1 No 1mg mg-2 mg 1-16 sublingual 00:00: film 00 Suboxone 8 1-1 No 1mg mg-2 mg 0-21 sublingual 00:00: film 00 Dose 1-0 No Unknown 9-21 00:00: 00 Suboxone 8 1-0 No 1mg mg-2 mg 9-21 sublingual 00:00: film 00 hydroxyzine 1-0 No 12mg HCl 50 mg 8-20 tablet 00:00: 00 divalproex 1-0 No 1mg 500 mg 8-20 tablet,vazquez 00:00: yed release 00 propranolol 1-0 No 1mg 10 mg 8-20 tablet 00:00: 00 quetiapine 1-0 No 1mg 200 mg 8-20 tablet 00:00: 00 Latuda 60 1-0 No 1mg mg tablet 8-20 00:00: 00 Cymbalta 60 1-0 No 1mg mg 8-20 capsule,del 00:00: ayed 00 release lithium 1-0 No 3mg carbonate 8-20 300 mg 00:00: capsule 00 alprazolam 1-0 No mg 1 mg tablet 10-18 00:00: 00 alprazolam 1-0 No 1mg 1 mg tablet 10-18 00:00: 00 Suboxone 8 1-0 No 1mg mg-2 mg 8-11 sublingual 00:00: film 00 Suboxone 8 2020-0 No 1mg mg-2 mg 7-14 sublingual 00:00: film 00 Vitamin D3 1-0 No 1(1,000 25 mcg 713 unit) (1,000 00:00: unit) 00 chewable tablet lithium 2020-0 No 1mg carbonate 09-13 300 mg 00:00: capsule 00 ProAir HFA 2020-0 No 2mcg/ac 90 09-13 tuation mcg/actuati 00:00: on aerosol 00 inhaler lisinopril 1-0 No 1mg 20 mg - tablet 00:00: 00 aspirin 81 1-0 No 1mg mg 09-13 tablet,vazquez 00:00: yed release 00 atorvastati 1-0 No 1mg n 20 mg - tablet 00:00: 00 folic acid 1-0 No 1mg 1 mg tablet 09-13 00:00: 00 divalproex 1-0 No 1mg 500 mg 09-13 tablet,vazquez 00:00: yed release 00 ropinirole 1-0 No 1mg 2 mg tablet 09-13 00:00: 00 Keppra 500 1-0 No 1mg mg tablet 09-13 00:00: 00 propranolol 2021-0 No 1mg 10 mg - tablet 00:00: 00 hydroxyzine 2021-0 No 1mg HCl 50 mg - tablet 00:00: 00 quetiapine 2021-0 No 1mg 200 mg - tablet 00:00: 00 quetiapine 2021-0 No 1mg 50 mg - tablet 00:00: 00 Latuda 60 1-0 No 1mg mg tablet 09-13 00:00: 00 Cymbalta 60 1-0 No 1mg mg - capsule,del 00:00: ayed 00 release Suboxone 8 1-0 No 1mg mg-2 mg 6-16 sublingual 00:00: film 00 aspirin 81 1-0 No 1mg mg 5-19 tablet,vazquez 00:00: yed release 00 ropinirole 2021-0 No 1mg 2 mg tablet 5-19 00:00: 00 Keppra 500 2021-0 No 1mg mg tablet 5-19 00:00: 00 propranolol 2021-0 No 1mg 10 mg 5-19 tablet 00:00: 00 hydroxyzine 2021-0 No 1mg HCl 50 mg 5-19 tablet 00:00: 00 Latuda 60 2021-0 No 1mg mg tablet 5-19 00:00: 00 quetiapine 2021-0 No 1mg 50 mg 5-19 tablet 00:00: 00 quetiapine 2021-0 No 1mg 200 mg 5-19 tablet 00:00: 00 Suboxone 8 2021-0 No 1mg mg-2 mg 5-19 sublingual 00:00: film 00 Cymbalta 60 2021-0 No 1mg mg 5-19 capsule,del 00:00: ayed 00 release lithium 1-0 No 1mg carbonate 5-19 300 mg 00:00: capsule 00 atorvastati 2021-0 No 1mg n 20 mg 4-22 tablet 00:00: 00 lisinopril 2021-0 No 1mg 20 mg 4-22 tablet 00:00: 00 pantoprazol 2021-0 No 1mg e 40 mg 4-22 tablet,vazquez 00:00: yed release 00 propranolol 2021-0 No 1mg 20 mg 4-22 tablet 00:00: 00 Depakote 2021-0 No 1mg 500 mg 4-22 tablet,vazquez 00:00: yed release 00 ropinirole 2021-0 No 1mg 1 mg tablet 4-22 00:00: 00 ProAir HFA 2021-0 No 2mcg/ac 90 4-21 tuation mcg/actuati 00:00: on aerosol 00 inhaler Advair 2021-0 No 2mcg/do Diskus 250 4-21 se mcg-50 00:00: mcg/dose 00 powder for inhalation atorvastati 2021-0 No 1mg n 20 mg 4-21 tablet 00:00: 00 lisinopril 2021-0 No 1mg 20 mg 4-21 tablet 00:00: 00 pantoprazol 2021-0 No 1mg e 40 mg 4-21 tablet,vazquez 00:00: yed release 00 folic acid 1-0 No 1mg 1 mg tablet 4-21 00:00: 00 propranolol 2021-0 No 1mg 20 mg 4-21 tablet 00:00: 00 Ambien 10 2020-0 No 1mg mg tablet 4-21 00:00: 00 Seroquel 1-0 No 1mg 200 mg 4-21 tablet 00:00: 00 Depakote 1-0 No 1mg 500 mg 4-21 tablet,vazquez 00:00: yed release 00 thiamine 1-0 No 1mg HCl 4-21 (vitamin 00:00: B1) 100 mg 00 tablet ropinirole 2020-0 No 1mg 1 mg tablet 06-26 00:00: 00 alprazolam 1-0 No 1mg 2 mg tablet 06-26 00:00: 00 Flonase 1-0 No 2mcg/ac Allergy -21 tuation Relief 50 00:00: mcg/actuati 00 on nasal spray,suspe nsion sertraline 2020-0 No 1mg 100 mg 4-13 tablet 00:00: 00 loratadine- 2020-0 No 1mg pseudoephed 4-13 rine ER 10 00:00: mg-240 mg 00 tablet,exte nded [id number] sertraline 1-0 No 2mg 100 mg 4-13 tablet 00:00: 00 sulfamethox 1-0 No 1mg azole 800 4-13 mg-trimetho 00:00: prim 160 mg 00 tablet hydroxyzine 1-0 No 1mg HCl 50 mg 4-13 tablet 00:00: 00 Suboxone 8 1-0 No 1mg mg-2 mg 4-13 sublingual 00:00: film 00 tizanidine 1-0 No 1mg 4 mg 4-13 capsule 00:00: 00 tizanidine 1-0 No 1mg 4 mg 4-13 capsule 00:00: 00 sertraline 1-0 No 1mg 100 mg 3-10 tablet 00:00: 00 sertraline 2021-0 No 1mg 100 mg 3-10 tablet 00:00: 00 Suboxone 8 2020-0 No 1mg mg-2 mg 3-10 sublingual 00:00: film 00 Suboxone 8 2020-0 No 1mg mg-2 mg 3-10 sublingual 00:00: film 00 tizanidine 2021-0 No 1mg 4 mg 3-10 capsule 00:00: 00 tizanidine 2021-0 No 1mg 4 mg 3-10 capsule 00:00: 00 Ambien 10 2021-0 No 1mg mg tablet 3-04 00:00: 00 Ambien 10 2021-0 No 1mg mg tablet 3-02 00:00: 00 sertraline 1-0 No 1mg 100 mg 2-10 tablet 00:00: 00 Suboxone 8 1-0 No 1mg mg-2 mg 2-10 sublingual 00:00: film 00 tizanidine 1-0 No 1mg 4 mg 2-10 capsule 00:00: 00 Suboxone 8 2020-0 No 1mg mg-2 mg 1-19 sublingual 00:00: film 00 Suboxone 8 2019-1 No 1mg mg-2 mg 2-17 sublingual 00:00: film NaCl 0.9% 2019- Yes 1000mL at 999 Univ ers (NS) IV 2-08 mL/hr, ity of infusion 04:00: Intravenou Jean Marie as 1,000 mL 00 s, Medical CONTINUOUS Branch , Starting 02/12/20 at 2200, Until Discontinu ed, Routine Suboxone 8 2019-1 No 1mg mg-2 mg 1-10 sublingual 00:00: film amoxicillin 2019-1 No 1mg 875 0-07 mg-potassiu 00:00: m 00 clavulanate 125 mg tablet Suboxone 8 2019-1 No 1mg mg-2 mg 0-07 sublingual 00:00: film 00 benzonatate 2019-1 No 1mg 200 mg 0-07 capsule 00:00: 00 Suboxone 8 2020-0 No 1mg mg-2 mg 9-02 sublingual 00:00: film 00 Suboxone 8 2020-0 No 1mg mg-2 mg 8-18 sublingual 00:00: film 00 Suboxone 8 2020-0 No 1mg mg-2 mg 8-04 sublingual 00:00: film 00 Suboxone 8 2020-0 No 1mg mg-2 mg 7-16 sublingual 00:00: film 00 Suboxone 8 2020-0 No 1mg mg-2 mg 6-17 sublingual 00:00: film 00 Suboxone 8 2020-0 No 1mg mg-2 mg 5-20 sublingual 00:00: film 00 Suboxone 8 2020-0 No 1mg mg-2 mg 5-06 sublingual 00:00: film 00 Suboxone 8 2020-0 No 1mg mg-2 mg 4-22 sublingual 00:00: film 00 Suboxone 8 2020-0 No 1mg mg-2 mg 4-22 sublingual 00:00: film 00 Suboxone 8 2020-0 No 1mg mg-2 mg 4-08 sublingual 00:00: film 00 Suboxone 8 2020-0 No 1mg mg-2 mg 4-01 sublingual 00:00: film 00 Suboxone 8 2020-0 No 1mg mg-2 mg 4-01 sublingual 00:00: film 00 Suboxone 8 2020-0 No 1mg mg-2 mg 3-19 sublingual 00:00: film 00 Suboxone 12 2020-0 No 1mg mg-3 mg 3-18 sublingual 00:00: film 00 Narcan 4 2020-0 No 1(50 mg mg/actuatio 2-03 iron) n nasal 00:00: spray 00 Suboxone 4 2020-0 No 1mg mg-1 mg 2-03 sublingual 00:00: film 00 Ambien 10 2020-0 No 1mg mg tablet 1-31 00:00: 00 alprazolam 2020-0 No 1mg 1 mg tablet 31 00:00: 00 tizanidine 2020-0 No 1mg 4 mg 1-31 capsule 00:00: 00 ProAir HFA 2020-0 No 1mcg/ac 90 1-31 tuation mcg/actuati 00:00: on aerosol 00 inhaler atorvastati 2020-0 No 1mg n 20 mg 1-31 tablet 00:00: 00 lisinopril 2020-0 No 1mg 20 mg 1-31 tablet 00:00: 00 pantoprazol 2020-0 No 1mg e 40 mg 1-31 tablet,vazquez 00:00: yed release 00 Seroquel 2020-0 No 1mg 100 mg 1-31 tablet 00:00: 00 ropinirole 2020-0 No 1mg 2 mg tablet 1-31 00:00: 00 propranolol 2020-0 No 1mg 20 mg 1-31 tablet 00:00: 00 (ALPRAZOLAM 2019-1 Yes 1/2 tablet [facility] ) 1 MG TABS 2-10 am, 1 Communi 00:00: tablet ty noon, 1/2 Health tablet night (SERTRALINE 2018-03 Yes Deloris one By Tico HCL) 50 MG 2-10 Luz [facility]outh Communi TABS 00:00: Every ty Morning Health for one week then increase to two tablets daily (QUETIAPINE 2018-03 Yes one By Marie cy FUMARATE) 2-10 Mouth take Comm uni 200 MG TABS 00:00: at bedtime Health lisinopril Yes TAKE 1 Unive rs [...] tablet 00:00: EVERY DAY Medical Branch omeprazole 0 Yes TAKE 1 Unive rs 40 mg 2-21 CAPSULE ity of capsule 00:00: EVERY DAY Medical Branch omeprazole 2017-0 Yes TAKE 1 Unive rs 40 mg 2-21 CAPSULE ity of capsule 00:00: EVERY DAY Medical Branch omeprazole 2016-0 Yes TAKE 1 Unive rs 40 mg 2-21 CAPSULE ity of capsule 00:00: EVERY DAY Medical Branch omeprazole 2017-0 Yes TAKE 1 Unive rs 40 mg 2-21 CAPSULE ity of capsule 00:00: EVERY DAY Medical Branch ibuprofen 2017-0 Yes TAKE 1 Univer s 800 mg 1-25 TABLET BY ity of tablet 00:00: MOUTH TWICE A Medical DAY WITH Branch FOOD ibuprofen 2017-0 Yes TAKE 1 Univer s 800 mg 1-25 TABLET BY ity of tablet 00:00: MOUTH TWICE A Medical DAY WITH Branch FOOD ibuprofen Yes TAKE 1 Univer s 800 mg 1-25 TABLET BY ity of tablet 00:00: MOUTH TWICE A Medical DAY WITH Branch FOOD ibuprofen 2017-0 Yes TAKE 1 Univer s 800 mg 1-25 TABLET BY ity of tablet 00:00: MOUTH [place] 00 TWICE A Medical DAY WITH Branch FOOD [...] ity of 60 mg 00:00: [place] capsule Medical Branch fluticasone 2014-03 Yes Univer s [...] ity of 300 mg 00:00: [place] capsule Medical Branch gabapentin 2014-03 Yes Univers (NEURONTIN) 0-24 ity of 300 mg 00:00: [place] capsule Medical Branch ALPRAZolam 2014-03 Yes Univers (XANAX) 2 0-17 ity of mg tablet 00:00: [place] [facility] zolpidem 2014-03 Yes Univers (AMBIEN) 10 0-17 ity of mg tablet 00:00: [place] [facility] ALPRAZolam 2014-03 Yes Univers (XANAX) 2 0-17 ity of mg tablet 00:00: [place] [facility] zolpidem 2014-03 Yes Univers (AMBIEN) 10 0-17 ity of mg tablet 00:00: [place] [facility] ALPRAZolam 2014-03 Yes Univers (XANAX) 2 0-17 ity of mg tablet 00:00: [place] [facility] zolpidem 2014-03 Yes Univers (AMBIEN) 10 0-17 ity of mg tablet 00:00: [place] [facility] ALPRAZolam 2014-03 Yes Univers (XANAX) 2 0-17 ity of mg tablet 00:00: [place] [facility] zolpidem 2014-03 Yes Univers (AMBIEN) 10 0-17 ity of mg tablet 00:00: [facility] INVEGA 3 mg Yes Univer s 24 hr 8-21 ity of tablet 00:00: [place] [facility] INVEGA 3 mg Yes Univer s 24 hr 8-21 ity of tablet 00:00: Medical Branch INVEGA 3 mg Yes Univer s 24 hr 8-21 ity of tablet 00:00: Medical Branch INVEGA 3 mg Yes Univer s 24 hr 8-21 ity of tablet 00:00: [place] [facility] VENLAFAXINE Yes 1 Cap Oral Univers 150 MG ORAL 3-16 QAM WITH ity of CP24 00:00: BREAKFAST [facility] DIVALPROEX Yes 1 Tab Oral U nivers 500 MG ORAL 3-16 QAM, 2 Tab it y of TBEC 00:00: Oral QHS Medical Branch RISPERIDONE Yes 1 Tab Oral Univers 2 MG ORAL 3-16 BID ity of TAB 00:00: [place] [facility] QUETIAPINE 2007-0 Yes 1 Tab Oral U nivers 200 MG ORAL 3-16 QHS ity of TAB 00:00: [place] [facility] VENLAFAXINE 2007-0 Yes 1 Cap Oral Univers 150 MG ORAL 3-16 QAM WITH ity of CP24 00:00: BREAKFAST Medical Branch DIVALPROEX 2007-0 Yes 1 Tab Oral U nivers 500 MG ORAL 3-16 QAM, 2 Tab it y of TBEC 00:00: Oral QHS [place] [facility] RISPERIDONE 2007-0 Yes 1 Tab Oral Univers 2 MG ORAL 3-16 BID ity of TAB 00:00: [place] [facility] QUETIAPINE 2007-0 Yes 1 Tab Oral U nivers 200 MG ORAL 3-16 QHS ity of TAB 00:00: [place] [facility] VENLAFAXINE 2007-0 Yes 1 Cap Oral Univers 150 MG ORAL 3-16 QAM WITH ity of CP24 00:00: BREAKFAST [place] [facility] DIVALPROEX 2007-0 Yes 1 Tab Oral U nivers 500 MG ORAL 3-16 QAM, 2 Tab it y of TBEC 00:00: Oral QHS [place] [facility] RISPERIDONE 2007-0 Yes 1 Tab Oral Univers 2 MG ORAL 3-16 BID ity of TAB 00:00: [place] [facility] QUETIAPINE 2007-0 Yes 1 Tab Oral U nivers 200 MG ORAL 3-16 QHS ity of TAB 00:00: [place] [facility] VENLAFAXINE 2007-0 Yes 1 Cap Oral Univers 150 MG ORAL 3-16 QAM WITH ity of CP24 00:00: BREAKFAST [place] [facility] DIVALPROEX 2007-0 Yes 1 Tab Oral U nivers 500 MG ORAL 3-16 QAM, 2 Tab it y of TBEC 00:00: Oral QHS [place] [address] Medical Branch RISPERIDONE 2007-0 Yes 1 Tab Oral Univers 2 MG ORAL 3-16 BID ity of TAB 00:00: [place] [address] Medical Branch QUETIAPINE 2007-0 Yes 1 Tab Oral U nivers 200 MG ORAL 3-16 QHS ity of TAB 00:00: [place] [address] Medical Branch Vital Signs Vital Name Observation Time Observation Value Comments Source Systolic blood 2020-02-13 05:00:00 145 mm[Hg] Univer sity of pressure [facility] Branch Diastolic blood 2020-02-13 05:00:00 72 mm[Hg] Unive rsity of pressure [place] [facility] Heart rate 2020-02-13 05:00:00 92 /min Universi ty of [place] [facility] Oxygen saturation in 2020-02-13 05:00:00 99 /min University of Arterial blood by [place] [facility] tom Pulse oximetry Branch Respiratory rate 2020-02-13 04:00:00 18 /min Univ ersity of [facility] Body temperature 2020-02-13 01:09:00 36.67 [place] Univ ersity of [place] [facility] Body weight 2020-02-13 01:09:00 125.646 kg Universi ty of [place] [facility] BMI 2020-02-13 01:09:00 46.10 kg/m2 [facility] ty [facility] [place] [facility] Systolic blood 2020-02-13 05:00:00 145 mm[Hg] Univer sity of pressure [place] [facility] Diastolic blood 2020-02-13 05:00:00 72 mm[Hg] Unive rsity of pressure [place] [facility] Heart rate 2020-02-13 05:00:00 92 /min Universi ty of [place] [facility] Oxygen saturation in 2020-02-13 05:00:00 99 /min University of Arterial blood by [facility] tom Pulse oximetry Branch Respiratory rate 2020-02-13 04:00:00 18 /min Univ ersity of [facility] Body temperature 2020-02-13 01:09:00 36.67 [place] [facility] ersity of [place] [facility] Body weight 2020-02-13 01:09:00 125.646 kg [facility]i ty [facility] [place] [facility] BMI 2020-02-13 01:09:00 46.10 kg/m2 [facility] BP Systolic 2021-09-02 14:31:00 117 mm[Hg] BP Diastolic 2021-09-02 14:31:00 81 mm[Hg] Weight Measured 2021-09-02 14:31:00 309.40 pounds Height Measured 2021-09-02 14:31:00 65.00 inches Body Temperature 2021-09-02 14:31:00 98.20 degrees Heart Rate 2021-09-02 14:31:00 79.00 /min Respiratory Rate 2021-09-02 14:31:00 17.00 /min BP Systolic 2021-06-17 14:51:00 145 mm[Hg] BP Diastolic 2021-06-17 14:51:00 87 mm[Hg] Weight Measured 2021-06-17 14:51:00 314.40 pounds Height Measured 2021-06-17 14:51:00 65.00 inches Body Temperature 2021-06-17 14:51:00 98.10 degrees Heart Rate 2021-06-17 14:51:00 80.00 /min Respiratory Rate 2021-06-17 14:51:00 17.00 /min BP Systolic 2021-05-13 15:27:00 125 mm[Hg] BP Diastolic 2021-05-13 15:27:00 84 mm[Hg] Weight Measured 2021-05-13 15:27:00 303.20 pounds Height Measured 2021-05-13 15:27:00 65.00 inches Body Temperature 2021-05-13 15:27:00 98.40 degrees Heart Rate 2021-05-13 15:27:00 90.00 /min Respiratory Rate 2021-05-13 15:27:00 16.00 /min BP Systolic 2021-03-26 15:20:00 105 mm[Hg] BP Diastolic 2021-03-26 15:20:00 72 mm[Hg] Weight Measured 2021-03-26 15:20:00 302.20 pounds Height Measured 2021-03-26 15:20:00 65.00 inches Body Temperature 2021-03-26 15:20:00 98.20 degrees Heart Rate 2021-03-26 15:20:00 79.00 /min Respiratory Rate 2021-03-26 15:20:00 16.00 /min BP Systolic 2021-01-21 13:27:00 125 mm[Hg] BP Diastolic 2021-01-21 13:27:00 79 mm[Hg] Weight Measured 2021-01-21 13:27:00 281.60 pounds Height Measured 2021-01-21 13:27:00 65.00 inches Body Temperature 2021-01-21 13:27:00 98.40 degrees Heart Rate 2021-01-21 13:27:00 82.00 /min Respiratory Rate 2021-01-21 13:27:00 16.00 /min BP Systolic 2020-12-26 16:30:00 134 mm[Hg] BP Diastolic 2020-12-26 16:30:00 84 mm[Hg] Weight Measured 2020-12-26 16:30:00 281.60 pounds Height Measured 2020-12-26 16:30:00 65.00 inches Body Temperature 2020-12-26 16:30:00 98.30 degrees Heart Rate 2020-12-26 16:30:00 102.00 /min Respiratory Rate 2020-12-26 16:30:00 BP Systolic 2020-11-26 13:35:00 139 mm[Hg] BP Diastolic 2020-11-26 13:35:00 87 mm[Hg] Weight Measured 2020-11-26 13:35:00 284.80 pounds Height Measured 2020-11-26 13:35:00 65.00 inches Body Temperature 2020-11-26 13:35:00 98.20 degrees Heart Rate 2020-11-26 13:35:00 83.00 /min Respiratory Rate 2020-11-26 13:35:00 16.00 /min BP Systolic 2020-09-18 10:56:00 123 mm[Hg] BP Diastolic 2020-09-18 10:56:00 81 mm[Hg] Weight Measured 2020-09-18 10:56:00 271.20 pounds Height Measured 2020-09-18 10:56:00 65.00 inches Body Temperature 2020-09-18 10:56:00 98.10 degrees Heart Rate 2020-09-18 10:56:00 70.00 /min Respiratory Rate 2020-09-18 10:56:00 16.00 /min BP Systolic 2020-09-13 14:26:00 95 mm[Hg] BP Diastolic 2020-09-13 14:26:00 69 mm[Hg] Weight Measured 2020-09-13 14:26:00 265.40 pounds Height Measured 2020-09-13 14:26:00 65.00 inches Body Temperature 2020-09-13 14:26:00 98.20 degrees Heart Rate 2020-09-13 14:26:00 100.00 /min Respiratory Rate 2020-09-13 14:26:00 BP Systolic 2020-08-21 09:42:00 126 mm[Hg] BP Diastolic 2020-08-21 09:42:00 84 mm[Hg] Weight Measured 2020-08-21 09:42:00 268.00 pounds Height Measured 2020-08-21 09:42:00 65.00 inches Body Temperature 2020-08-21 09:42:00 97.80 degrees Heart Rate 2020-08-21 09:42:00 90.00 /min Respiratory Rate 2020-08-21 09:42:00 16.00 /min Procedures Procedure Date / Time Performing Clinician Source Performed EXTERNAL PROVIDER RECORDS 2020-10-09 05:01:00 Doctor Unassigned, [facility] URINALYSIS 2020-02-13 02:27:00 Jodie Ruiz [facility] ADC / LCC - DRUG SCREEN 2020-02-13 02:27:00 Jodie Ruiz [facility] CT HEAD WO CONTRAST 2020-02-13 01:56:48 Jodie Ruiz [facility] EXTRA TUBE LT. BLUE 2020-02-13 01:37:00 Jodie Ruiz [facility] EXTRA TUBE SST 2020-02-13 01:37:00 Jodie Ruiz [facility] EXTRA TUBE LT. GREEN 2020-02-13 01:37:[address] [facility] XR CHEST 1 VW 2020-02-13 01:33:14 Jodie Ruiz [facility] TROPONIN I 2020-02-13 01:32:00 Jodie Ruiz [facility] COMP. METABOLIC PANEL 2020-02-13 01:32:00 Jodie Ruiz [facility] ([id number]) [facility] SALICYLATE 2020-02-13 01:32:00 Jodie Ruiz [facility] VALPROIC ACID, TOTAL 2020-02-13 01:32:[address] [facility] ETHANOL 2020-02-13 01:32:00 Jodie Ruiz [facility] CBC WITH DIFF 2020-02-13 01:32:00 Jodie Ruiz [facility] COVID-19 (ID NOW RAPID 2020-02-13 01:32:00 Jodie Ruiz [facility] EXTERNAL PROVIDER RECORDS 2019-10-09 05:01:00 Doctor Unassigned, [facility] Diagnostic evaluation with 2019-02-14 14:55:13 Luz Deloris Cate [facility] [address] [facility] 2003-03-08 00:00:00 [facility] Chole[facility] 2000-03-08 00:00:00 [facility] Plan of Care Planned Activity Planned Date Details Comments Source Goal Plan of Care Note [code = 36408-7] Goal Plan of Care Note [code = 37929-0] Goal Plan of Care Note [code = 98188-9] Goal Plan of Care Note [code = 85738-9] Goal Plan of Care Note [code = 06331-3] Goal Plan of Care Note [code = 99377-1] Goal Plan of Care Note [code = 98789-0] Goal Plan of Care Note [code = 44829-7] Goal Plan of Care Note [code = 08394-5] Goal Plan of Care Note [code = 57273-1] Goal Plan of Care Note [code = 89100-3] Goal Plan of Care Note [code = 12138-8] Goal Plan of Care Note [code = 46640-5] Goal Plan of Care Note [code = 63519-1] Goal Plan of Care Note [code = 38428-2] Goal Plan of Care Note [code = 94093-3] Goal Plan of Care Note [code = 64342-7] Goal Plan of Care Note [code = 02949-1] Goal Plan of Care Note [code = 60898-5] Goal Plan of Care Note [code = 53046-1] Goal Plan of Care Note [code = 00875-7] Goal Plan of Care Note [code = 14598-6] Encounters Start End Encounter Admission Attending Care Care Encounter Source Date/Time Date/Time Type Type Clinicians Facility Department ID 2021-01-04 Emergency [facility] [id number] [facility]17 [facility] [id number] [facility] 20:30:00 2020-12-17 Inpatient [facility] [id number] [facility] 20:30:00 96 2021-10-21 2021-10-21 Outpatient [id number] 00:00:00 00:00:00 Visit [id number] 2020-12-30 2020-12-30 Outpatient DMG DMG [id number] [facility] 08:02:00 08:02:00 [facility] l [facility] 2020-10-29 2020-10-29 Outpatient JARAD RINCON [facility] [id number] Univers 13:40:00 13:40:00 JARAD LÓPEZ [id number] [facility] 2020-10-29 2020-10-29 Outpatient JARAD RINCON [facility] [id number] Univers 13:40:00 13:40:00 JARAD LÓPEZ [facility] 2020-10-28 2020-10-28 Outpatient JARAD RINCON [facility] [id number] Univers 13:40:00 13:40:00 JARAD LÓPEZ [id number] [facility] 2020-10-28 2020-10-28 Outpatient JARAD RINCON [facility] [id number] Univers 13:40:00 13:40:00 JARAD LÓPEZ [facility] 2020-10-15 2020-10-15 Outpatient JARAD RINCON [facility] [id number] [facility] 13:00:00 13:00:00 JARAD LÓPEZ [id number] [facility] 2020-10-15 2020-10-15 Outpatient JARAD RINCON [facility] [id number] Univers 13:00:00 13:00:00 JARAD LÓPEZ [facility] 2020-10-09 2020-10-09 Orders Doctor BURLESON [id number] Univers 00:00:00 00:00:00 Only Unassigned, [place] [id number] [facility] 4.2.7.2.686 Jean Marie as [id number] [facility] 009 Beryl 2020-10-07 2020-10-07 Outpatient Daya [facility] [id number] Univers 15:30:00 15:30:00 RAAD [id number] ity [facility] 2020-10-07 2020-10-07 Outpatient Daya [facility] [id number] Univers 15:30:00 [facility] 2020-10-03 2020-10-03 [facility] [id number] Univers 00:00:00 00:00:00 Raad [facility] [id number] it y of Surgical 4.2.7.2.686 Jean Marei as Specialti [id number] Me dical es 198 [facility] 2020-09-24 2020-09-24 Outpatient Daya [facility] [id number] Univers 15:45:00 15:45:00 CHRIS [id number] [facility] 2020-09-24 2020-09-24 Outpatient Daya [facility] [id number] Univers 15:45:00 15:45:00 [facility] 2020-02-12 2020-02-13 Emergency [facility] [id number] Univers 19:02:00 00:09:00 Jodie Lowery 350.1.13.10 ity of [place] 4.2.7.2.686 [facility] [id number] [facility] [address] [place] [address] 2020-02-12 2020-02-13 Emergency [facility] [id number] 19:02:00 00:09:00 Jodie Lowery 350.1.13.10 [place] 4.2.7.2.686 [place] [id number] [facility] 2019-10-09 2019-10-09 Orders Doctor SARAH BETH [id number] Univers 00:00:00 00:00:00 Only Unassigned, [place] [id number] 4.2.7.2.686 Jean Marie as [id number] [facility] 009 Branch 2019-10-09 2019-10-09 Orders Doctor SARAH BETH [id number] 00:00:00 00:00:00 Only Unassigned, [place] 350.1.13.10 [facility] 4.2.7.2.686 [id number] 2019-02-14 2019-02-14 Office Deloris Escobar [facility] Spence En counter/ Legacy 00:00:00 00:00:00 Visit Nitin Shellyambrose Buckley [id number] [facility] [id number] [facility] 2018-09-23 2018-09-23 Office Antonietta Garcia [facility] Legacy En counter/ Legacy 00:00:00 00:00:00 Visit Sarika Michael [facility] [id number] [facility] [id number] Services Health Contact Center 2018-09-23 2018-09-23 Office Alec [facility] Legacy Encoun ter/ Legacy 00:00:00 00:00:00 Visit , Sarika [facility] [id number] [facility] [id number] Services Health Contact Center 2017-04-05 2017-04-05 Ambulatory nullFlavo [facility] 3 [id number] Memoria 17:15:00 17:15:00 Pre-Reg r Medicine 02 cate zhou 2017-04-05 2017-04-05 Ambulatory nullFlavo [facility] [id number] Memoria 17:15:00 17:15:00 Pre-Reg r Medicine 02 cate zhou 2017-04-05 2017-04-05 Outpatient MHIE [facility] [id number] Memoria 11:15:00 11:15:00 Adam Mera 2017-04-05 2017-04-05 Outpatient Morse, [facility] [id number] 11:15:00 11:15:00 Gail Zhou 02 2017-03-26 2017-03-26 Ambulatory nullFlavo [facility] [id number] Memoria 21:15:00 21:15:00 Pre-Reg r Medicine 01 cate zhou 2017-03-26 2017-03-26 Ambulatory nullFlavo [facility] 3 [id number] Memoria 21:15:00 21:15:00 Pre-Reg r Medicine l Christiano Vazquez n 2017-03-26 2017-03-26 Outpatient BARRERA BENNY [id number] Memoria 15:15:00 15:15:00 01 cate Ede 2017-03-26 2017-03-26 Outpatient Lito, [facility] [id number] 15:15:00 15:15:00 Gail Zhou 2016-12-07 2016-12-07 Outpatient BARRERA BENNY [id number] Memoria 11:00:00 11:00:00 00 cate Ede 2016-12-07 2016-12-07 Outpatient BARRERA BENNY [id number] Memoria 11:00:00 11:00:00 00 cate Ede Results Test Description Test Time Test Comments Results Result Comments Source Complete Blood Count Auto Diff 2020-12-17 21:10:00 Test Item Value Reference Range Interpretation Comme nts White Blood Count (test code = WBCT) 8.7 x10 3/uL 4.4-10.5 N Red Blood Count (test code = RBC) 4.84 x10 6/uL 3.75-5.20 N Hemoglobin (test code = HGBT) 12.9 g/dL 12.2-14.8 N Hematocrit (test code = HCTT) 41.8 % 36.5-44.4 N Mean Corpuscular Volume (test code = MCV) 86.40 fL 80.00-100.00 N Mean Corpuscular Hemoglobin (test code = MCH) 26.7 pg 27.0-32. 5 L Mean Corpuscular HGB Conc (test code = MCHC) 30.90 g/dL 32.00-37. 50 L RDW Coefficient of Variation (test code = RDWCV) 13.9 % 11.5- 14.5 N Platelet Count (test code = PLTT) 323.0 x10 3/uL 140.0-440.0 N Mean Platelet Volume (test code = MPV) 8.8 fL Immature Granulocytes % (Auto) (test code = IMMGRAN%) 0.9 % 0.0-5.0 N Neutrophils % (Auto) (test code = NE%) 61.8 % 36.0-70.0 N Lymphocytes % (Auto) (test code = LY%) 28.1 % 12.0-44.0 N Monocytes % (Auto) (test code = MO%) 6.2 % 0.0-11.0 N Eosinophils % (Auto) (test code = EO%) 2.5 % 0.0-7.0 N Basophils % (Auto) (test code = BA%) 0.5 % 0.0-2.0 N Immature Granulocytes # (Auto) (test code = IMMGRAN#) 0.08 x10 3/uL Neutrophils # (Auto) (test code = NE#) 5.4 x10 3/uL 1.6-7.4 N Lymphocytes # (Auto) (test code = LY#) 2.43 x10 3/uL 0.50-4.60 N Monocytes # (Auto) (test code = MO#) 0.54 x10 3/uL 0.00-1.20 N Eosinophils # (Auto) (test code = EO#) 0.22 x10 3/uL 0.00-0.74 N Basophils # (Auto) (test code = BA#) 0.04 x10 3/uL 0.00-0.21 N nRBC Abs (test code = NRBCA) 0 nRBC Pct (test code = NRBCP) 0 % Comprehensive Metabolic [id number] 21:10:00 Test Item Value Reference Range Interpretation Comments SODIUM (test code = NA) 137.0 mmol/L 136.0-145.0 N Potassium,K (test code = K) 4.9 mmol/L 3.0-5.1 N Chloride (test code = CL) 104 mmol/L 98-107 N Carbon Dioxide (test code = CO2) 23 mmol/L 20-31 N Anion Gap (test code = GAP) 10 mmol/L 5-15 N Blood Urea Nitrogen (test code = 25 mg/dL 9-23 H BUN) Creatinine (test code = CREATT) 1.06 mg/dL 0.55-1.02 H Creatinine Clr Calc Pharmacy 77.09 mL/min (test code = CRCLPHA) Estimated GFR ( Jeanie > 60 mL/min/1.73m2 (test code = EGFRAA) Estimated GFR (Non Afr Jeanie 60 mL/min/1.73m2 (test code = EGFRNAA) BUN/Creatinine Ratio (test code 24 ratio 10-20 H = BCRATIO) Glucose (test code = GLU) 115 mg/dL 74-106 H Osmolality,Calculated (test code 288.9 = OSMOC) Calcium (test code = CA) 9.1 mg/dL 8.3-10.6 N Bilirubin,Total (test code = 0.2 mg/dL 0.2-1.1 N BILIT) Aspartate Amino Transferase 14 U/L 0-34 N (test code = AST) Alanine Aminotransferase (test 7 U/L 10-49 L code = ALT) Total Protein (test code = TP) 8.5 g/dL 5.7-8.2 H Albumin Level (test code = ALB) 4.9 g/dL 3.2-4.8 H Globulin (test code = GLOB) 3.6 mg/dL 2.3-3.5 H Albumin/Globulin Ratio (test 1.4 ratio 0.8-2.0 N code = AGRATIO) Alkaline Phosphatase (test code 99 U/L 46-116 N = ALP) Ethanol [id number] 21:10:00 Test Item Value Reference Range Interpretation Comments Ethanol (test code = ETOH) < 3 mg/dL Coronavirus PCR, COVID19 [id number] 21:10:00 Test Item Value Reference Range Interpretation Comments Coronavirus PCR, For use under Emergency COVID19 Rapid (test Use Authorization (EUA) code = SARSCOV2) only. Coronavirus PCR, Reference Range: COVID19 Rapid (test Negative code = JEMMDTW72.1) SARS-CoV-2 PCR Result: Negative by PCR (test code = SARS-CoV-2 PCR Result:) COVID-19 Status: AsymptomaticCOMPREHENSIVE METABOLIC [id number] 00:00:00 Test Item Value Reference Range Interpretation Comments GLUCOSE (test code = 2217) 121 MG/DL BUN (test code = 2208) 22 MG/DL CREATININE (test code = 2214) 1.11 MG/DL eGFR AMER. (test code 66 ML/MIN/1.73 = 74691) eGFR NON- AMER. (test 57 ML/MIN/1.73 code = 01565) CALC BUN/CREAT (test code = 20 RATIO 2235) SODIUM (test code = 2231) 138 MEQ/L POTASSIUM (test code = 2228) 4.4 MEQ/L CHLORIDE (test code = 2215) 106 MEQ/L CARBON DIOXIDE (test code = 20 MEQ/L 220) CALCIUM (test code = 2209) 9.7 MG/DL PROTEIN, TOTAL (test code = 7.5 G/DL 2228) ALBUMIN (test code = 2201) 4.4 G/DL CALC GLOBULIN (test code = 3.1 G/DL 2240) CALC A/G RATIO (test code = 1.4 RATIO 2234) BILIRUBIN, TOTAL (test code = <0.2 MG/DL 2206) ALKALINE PHOSPHATASE (test 96 U/L code = 220) AST (test code = 2218) 11 U/L ALT (test code = 2219) 11 U/L COMPREHENSIVE METABOLIC [id number] 00:00:00 Test Item Value Reference Range Interpretation Comments GLUCOSE (test code = 2217) 121 MG/DL BUN (test code = 2208) 22 MG/DL CREATININE (test code = 2214) 1.11 MG/DL eGFR AMER. (test code 66 ML/MIN/1.73 = 78356) eGFR NON- AMER. (test 57 ML/MIN/1.73 code = 54006) CALC BUN/CREAT (test code = 20 RATIO 2235) SODIUM (test code = 2231) 138 MEQ/L POTASSIUM (test code = 2228) 4.4 MEQ/L CHLORIDE (test code = 2215) 106 MEQ/L CARBON DIOXIDE (test code = 20 MEQ/L 2205) CALCIUM (test code = 2209) 9.7 MG/DL PROTEIN, TOTAL (test code = 7.5 G/DL 2228) ALBUMIN (test code = 2201) 4.4 G/DL CALC GLOBULIN (test code = 3.1 G/DL 2240) CALC A/G RATIO (test code = 1.4 RATIO 2234) BILIRUBIN, TOTAL (test code = <0.2 MG/DL 2206) ALKALINE PHOSPHATASE (test 96 U/L code = 2204) AST (test code = 2218) 11 U/L ALT (test code = 2219) 11 U/L IRON BINDING CAPACITY AND IRON AND % [id number] 00:00:00 Test Item Value Reference Range Interpretation Comments IRON, SERUM (test code = 2221) 42 UG/DL UNSATURATED IBC (test code = ) 246 UG/DL CALC TOTAL IBC (test code = 2076) 288 UG/DL CALC % IRON SAT (test code = 2078) 15 % IRON BINDING CAPACITY AND IRON AND % [id number] 00:00:00 Test Item Value Reference Range Interpretation Comments IRON, SERUM (test code = 2221) 42 UG/DL UNSATURATED IBC (test code = ) 246 UG/DL CALC TOTAL IBC (test code = 2076) 288 UG/DL CALC % IRON SAT (test code = 2078) 15 % [id number] 00:00:00 Test Item Value Reference Range Interpretation Comments FERRITIN (test code = 2074) 35 NG/ML [id number] 00:00:00 Test Item Value Reference Range Interpretation Comments FERRITIN (test code = 2074) 35 NG/ML [id number] 00:00:00 Test Item Value Reference Range Interpretation Comments TRANSFERRIN (test code = 4936) 232 MG/DL [id number] 00:00:00 Test Item Value Reference Range Interpretation Comments TRANSFERRIN (test code = 4936) 232 MG/DL VITAMIN D, 25 [id number] 00:00:00 Test Item Value Reference Range Interpretation Comments VITAMIN D, 25 OH (test code = 4958) 15 NG/ML VITAMIN D, 25 [id number] 00:00:00 Test Item Value Reference Range Interpretation Comments VITAMIN D, 25 OH (test code = 4958) 15 NG/ML CBC W/AUTO [id number] 00:00:00 Test Item Value Reference Range Interpretation Comments WBC (test code = 1001) 8.3 K/UL RBC (test code = 1002) 4.28 M/UL HEMOGLOBIN (test code = 1003) 11.8 G/DL HEMATOCRIT (test code = 1004) 35.4 % MCV (test code = 1005) 82.7 fL MCH (test code = 1006) 27.6 PG MCHC (test code = 1007) 33.3 G/DL RDW (test code = 1038) 13.4 % NEUTROPHILS (test code = 1008) 70.7 % LYMPHOCYTES (test code = 1010) 23.2 % MONOCYTES (test code = 1011) 3.4 % EOSINOPHILS (test code = 1012) 1.6 % BASOPHILS (test code = 1013) 0.6 % IMMATURE GRANULOCYTES (test 0.5 % code = 1036) NUCLEATED RBCS (test code = 0.0 /100WBC'S 1065) PLATELET COUNT (test code = 273 K/UL 1015) ABSOLUTE NEUTROPHILS (test code 5.89 K/UL = 1066) ABSOLUTE LYMPHOCYTES (test code 1.93 K/UL = 1067) ABSOLUTE MONOCYTES (test code = 0.28 K/UL 1068) ABSOLUTE EOSINOPHILS (test code 0.13 K/UL = 1040) ABSOLUTE BASOPHILS (test code = 0.05 K/UL 1069) ABS IMMATURE GRANULOCYTES (test 0.04 K/UL code = 1020) ABS NUCLEATED RBCS (test code = 0.00 K/UL 24172) CBC W/AUTO [id number] 00:00:00 Test Item Value Reference Range Interpretation Comments WBC (test code = 1001) 8.3 K/UL RBC (test code = 1002) 4.28 M/UL HEMOGLOBIN (test code = 1003) 11.8 G/DL HEMATOCRIT (test code = 1004) 35.4 % MCV (test code = 1005) 82.7 fL MCH (test code = 1006) 27.6 PG MCHC (test code = 1007) 33.3 G/DL RDW (test code = 1038) 13.4 % NEUTROPHILS (test code = 1008) 70.7 % LYMPHOCYTES (test code = 1010) 23.2 % MONOCYTES (test code = 1011) 3.4 % EOSINOPHILS (test code = 1012) 1.6 % BASOPHILS (test code = 1013) 0.6 % IMMATURE GRANULOCYTES (test 0.5 % code = 1036) NUCLEATED RBCS (test code = 0.0 /100WBC'S 1065) PLATELET COUNT (test code = 273 K/UL 1015) ABSOLUTE NEUTROPHILS (test code 5.89 K/UL = 1066) ABSOLUTE LYMPHOCYTES (test code 1.93 K/UL = 1067) ABSOLUTE MONOCYTES (test code = 0.28 K/UL 1068) ABSOLUTE EOSINOPHILS (test code 0.13 K/UL = 1040) ABSOLUTE BASOPHILS (test code = 0.05 K/UL 1069) ABS IMMATURE GRANULOCYTES (test 0.04 K/UL code = 1020) ABS NUCLEATED RBCS (test code = 0.00 K/UL 48215) CBC W/AUTO [id number] 00:00:00 Test Item Value Reference Range Interpretation Comments WBC (test code = 1001) 8.3 K/UL RBC (test code = 1002) 4.28 M/UL HEMOGLOBIN (test code = 1003) 11.8 G/DL HEMATOCRIT (test code = 1004) 35.4 % MCV (test code = 1005) 82.7 fL MCH (test code = 1006) 27.6 PG MCHC (test code = 1007) 33.3 G/DL RDW (test code = 1038) 13.4 % NEUTROPHILS (test code = 1008) 70.7 % LYMPHOCYTES (test code = 1010) 23.2 % MONOCYTES (test code = 1011) 3.4 % EOSINOPHILS (test code = 1012) 1.6 % BASOPHILS (test code = 1013) 0.6 % IMMATURE GRANULOCYTES (test 0.5 % code = 1036) NUCLEATED RBCS (test code = 0.0 /100WBC'S 1065) PLATELET COUNT (test code = 273 K/UL 1015) ABSOLUTE NEUTROPHILS (test code 5.89 K/UL = 1066) ABSOLUTE LYMPHOCYTES (test code 1.93 K/UL = 1067) ABSOLUTE MONOCYTES (test code = 0.28 K/UL 1068) ABSOLUTE EOSINOPHILS (test code 0.13 K/UL = 1040) ABSOLUTE BASOPHILS (test code = 0.05 K/UL 1069) ABS IMMATURE GRANULOCYTES (test 0.04 K/UL code = 1020) ABS NUCLEATED RBCS (test code = 0.00 K/UL 72105) LIPID [id number] 00:00:00 Test Item Value Reference Range Interpretation Comments CHOLESTEROL (test code = 2210) 189 MG/DL TRIGLYCERIDES (test code = 2232) 135 MG/DL HDL CHOLESTEROL (test code = 2220) 64 MG/DL CALC LDL CHOL (test code = 2237) 102 MG/DL RISK RATIO LDL/HDL (test code = 1.59 RATIO 2238) LIPID [id number] 00:00:00 Test Item Value Reference Range Interpretation Comments CHOLESTEROL (test code = 2210) 189 MG/DL TRIGLYCERIDES (test code = 2232) 135 MG/DL HDL CHOLESTEROL (test code = 2220) 64 MG/DL CALC LDL CHOL (test code = 2237) 102 MG/DL RISK RATIO LDL/HDL (test code = 1.59 RATIO 2238) CT HEAD WO [id number] 04:01:33 No acute intracranial abnormality. Preliminary Report Dictated by Resident: Keshawn Stephen [...] The calvarium and central skull base areunremarkable. [facility], Radiant Results Inft User - 02/12/2020 10:02 PM CSTEXAM: CT HEAD WO CONTRASTHISTORY: Altered mental status (AMS), unclear cause COMPARISON: None.TECHNIQUE: CT head w as obtained and reconstructed into axial, coronal andsagittal projection images.FINDINGS:The ventricles and cerebral sulci are normal in caliber and configuration.No hydrocephalus, midline shift or pathological extra-axial fluidcollection is present. The basal cisterns are unremarkable.There is no acut e intracranial hemorrhage or significant mass effect. Noparenchymal attenuation abnormality. The figueroa-white matter differentiationis preserved.Partially empty sella configuration is noted.The frontal sinuses are hypoplastic. The mastoid air cells and paranasalair sinuses are clear. The calvarium and central skull base areunremarkable.IMPRESSIONNo acute intracranial abnormality.Preliminary Report Dictated by Resident: Keshawn Ruiz, Sarah Beth Nuno MD., have reviewed this study and agree withtheabove report.[facility]00 Test Item Value Reference Range Interpretation Comments APPEARANCE (test code = Turbid Clear A 9589660556) COLOR (test code = Roxy Yellow A 4159169943) PH (test code = 4.8-8.0 1252118788) SP GRAVITY (test code = 1.003-1.030 H 3704786083) GLU U QUAL (test code = Normal Normal 7301360463) BLOOD (test code = Negative Negative 6789910189) KETONES (test code = 20 mg/dL Negative A 2641034765) PROTEIN (test code = 30 mg/dL Negative A 2887-8) UROBILIN (test code = Normal Normal 9475060945) BILIRUBIN (test code = Negative Negative 3650483691) NITRITE (test code = Negative Negative 8599324069) LEUK MARKOS (test code = Negative Negative 2197506520) RBC/HPF (test code = See_Comment [Autom ated message] 6064104771) The system [employer] generated this result transmitted ref erence range: 0 - 3 HP F. The reference range was not used to int erpret this result as normal/abnormal . WBC/HPF (test code = See_Comment [Autom ated message] 1437402683) The system [employer] generated this result transmitted ref erence range: 0 - 5 HP F. The reference range was not used to int erpret this result as normal/abnormal . BACTERIA (test code = Many Negative A 8577280764) MUCOUS (test code = Moderate Negative LPF A 5126210205) HYAL CAST (test code = See_Comment H [Aut omated message] [id number]) The system [employer] generated this result transmitted ref erence range: <=2 LPF. The reference range was not used to int erpret this result as normal/abnormal . GRAN CASTS (test code = See_Comment H [Au tomated message] [id number]) The system [employer] generated this result transmitted ref erence range: <=1 LPF. The reference range was not used to int erpret this result as normal/abnormal . Lab Interpretation (test Abnormal code = 75785-9) [facility] / [facility] [id number] 03:00:00 Test Item Value Reference Range Interpretation Comments BENZO U (test code = Negative Negative [id number]) JESSICA U (test code = Negative Negative 0426288740) AMPHET (test code = Negative Negative 7740092483) THC (test code = Negative Negative 1130970972) METHADONE (test code Negative Negative = 9146342062) Meth U (test code = Negative Negative 6976108079) OPIATES (test code = Negative Negative 0814979116) Cocaine Metabolite Negative Negative (test code = 7041715088) PROPOXY (test code = Negative Negative 4758597237) Tric U (test code = Presumptive Negative A Confirma tion of 6900866904) Positive Presumptive Positive TCA result requires physician order and this will b e sent to referen ce lab. PCP (test code = Negative Negative 3742453430) OXYCOD (test code = Negative Negative 9663509512) TULIO (test code = Urine Drug Cutoff [...] testing). Lab Interpretation Abnormal (test code = 46285-5) [id number] 02:55[facility]00 Test Item Value Reference Range Interpretation Comments TROPONIN I (test <0.012 See_Comment [Automated code = 5153597668) message] The system which generated this result [...] ? Lab Interpretation Normal (test code = 26987-9) [facility], [id number] 02:50:00 Test Item Value Reference Range Interpretation Comments VALPROIC A (test code = <10 50-100 L 2927608477) TULIO (test code = TULIO) Toxic Range: ?Greater than 100 ug/mL Lab Interpretation (test Abnormal code = 32290-5) [facility] 02:45:00 Test Item Value Reference Range Interpretation Comments SALICYLATE (test code <10 mg/L = 4556126765) TULIO (test code = TULIO) Therapeutic Range: ? Analgesic and Antipyretic Use ? 20-100 mg/L ? ? Anti-Inflammatory Use ? 100-250 mg/L Toxic Range: ? Greater than 300 mg/L [facility] 02:45:00 Test Item Value Reference Range Interpretation Comments ALCOHOL (test code = <10 mg/dL 5449189645) TULIO (test code = TULIO) <10 [id number] Toxic>100 Depression of FOREST AIDE>400 Fatalities Reported [facility] 02:44:00 Test Item Value Reference Range Interpretation Comments ACETAMINOP (test code = <10.0 10-30 L 7746902621) TULIO (test code = TULIO) Toxic: Greater than 200 ug/mL @ 4 hour post ingestion or greater than 50 ug/mL @ 12 hour post ingestion Lab Interpretation (test Abnormal code = 11343-5) [facility]. METABOLIC PANEL (19816)2020-02-13 02:43:00 Test Item Value Reference Range Interpretation Comments NA (test code = 138 mmol/L 135-145 5638651434) K (test code = 5.1 mmol/L 3.5-5 H 8576063975) CL (test code = 106 mmol/L 98-108 9556899080) CO2 TOTAL (test code = 19 mmol/L 23-31 L 3657613020) AGAP (test code = 2-16 1152070731) BUN (test code = 26 mg/dL 7-23 H 0239098467) GLUCOSE (test code = 113 mg/dL 70-110 H 3927951198) CREATININE (test code = 1.20 mg/dL 0.5-1.04 H 8274645201) TOTAL BILI (test code = 0.5 mg/dL 0.1-1.5 4447907052) CALCIUM (test code = 10.4 mg/dL 8.6-10.6 9079619388) T PROTEIN (test code = 8.4 g/dL 6.3-8.2 H 5878223072) ALBUMIN (test code = 4.7 g/dL 3.5-5 1631497972) ALK PHOS (test code = 115 U/L 34-122 4062209956) ALTv (test code = 14 U/L 5-35 1742-6) AST(SGOT) (test code = 20 U/L 13-40 1247500288) eGFR Calculation mL/min/1.73m2 (Non-) (test code = 0056412757) eGFR Calculation mL/min/1.73m2 () (test code = 9553635205) TULIO (test code = TULIO) Association of [...] tests). Lab Interpretation Abnormal (test code = 74974-7) [facility] (ID NOW RAPID TESTING)2020-02-13 02:15:00 Test Item Value Reference Range Interpretation Comments SARS-CoV-2 Rapid ID NOW Not Detected Not Detected (test code = 49893-7) TULIO (test code = TULIO) ID NOW COVID-19 Assay is an isothermal nucleic acid amplification test intended for the qualitative detection of nucleic acid from SARS-CoV-2 viral RNA in nasopharyngeal (NUCLEAR MEDICINE TECH) specimens. It is used under Emergency Use [...] indicated. Lab Interpretation Normal (test code = 39696-9) [facility] WITH [id number] 01:53:00 Test Item Value Reference Range Interpretation [...] RDW-SD (test code = 43.3 fL 39-49.9 58951-8) RDW-CV (test code = 14.1 % 12-15.5 788-0) PLT (test code = See_Comment H [Automated 777-3) message] The sy stem which generated this result transmitted reference range : 166 - 358 10*3/ ?L. The reference r xochitl was not used to interpret this result as normal/abnormal . MPV (test code = 9.6 fL 9.5-12.9 12581-3) NRBC/100 WBC (test See_Comment [Automat ed code = 9146573122) message] The system which generated this result transmitted reference range : 0.0 - 10.0 /100 WBCs. The refer ence range was not u sed to interpret th is result as normal/abnormal . NRBC x10^3 (test code <0.01 See_Comment [Auto mated = [id number]) message] The s ystem which generated this result transmitted reference range : 10*3/?L. The reference range was not used to interpret this result as normal/abnormal . GRAN MAT (NEUT) % 82.3 % (test code = 770-8) IMM GRAN % (test code 0.70 % = 1729261023) LYMPH % (test code = 12.5 % 736-9) MONO % (test code = 3.9 % 5905-5) EOS % (test code = 0.2 % 713-8) BASO % (test code = 0.4 % 706-2) GRAN MAT x10^3(ANC) 9.44 10*3/uL 1.88-7.09 H (test code = 1319534796) IMM GRAN x10^3 (test 0.08 10*3/uL 0-0.06 H code = 8044052295) LYMPH x10^3 (test code 1.43 10*3/uL 1.32-3.29 = 731-0) MONO x10^3 (test code 0.45 10*3/uL 0.33-0.92 = 742-7) EOS x10^3 (test code = <0.03 0.03-0.39 L 711-2) BASO x10^3 (test code 0.05 10*3/uL 0.01-0.07 = 704-7) Lab Interpretation Abnormal (test code = 20436-4) [facility] ([facility] by RT-PCR (HIGH RISK) 2019-09-22 00:00:00 Test Item Value Reference Range Interpretation Comments SARS-CoV-2 INTERPRETATION (test NEGATIVE code = 76759) SOURCE (test code = 15239) NOT SPECIFIED SARS-CoV-2 (COVID-19) by RT-PCR (HIGH RISK)2019-09-22 00:00:00 Test Item Value Reference Range Interpretation Comments SARS-CoV-2 INTERPRETATION (test NEGATIVE code = 05582) SOURCE (test code = 71422) NOT SPECIFIED DRUG SCREEN, [id number] 00:00:00 Test Item Value Reference Range Interpretation Comments AMPHETAMINES (test code = 13980) Negative BARBITURATES (test code = 88880) Negative BENZODIAZEPINES (test code = 55246) Positive COCAINE METABOLITE (test code = Negative 69559) METHADONE (test code = 67284) Negative OPIATES (test code = 213723) Negative PHENCYCLIDINE (test code = 810341) Negative PROPOXYPHENE (test code = 781890) Negative THC (CANNABIS) (test code = 387067) Negative ETHANOL (test code = 815050) Negative DRUG SCREEN, [id number] 00:00:00 Test Item Value Reference Range Interpretation Comments AMPHETAMINES (test code = 57247) Negative BARBITURATES (test code = 72026) Negative BENZODIAZEPINES (test code = 22614) Positive COCAINE METABOLITE (test code = Negative 34999) METHADONE (test code = 36351) Negative OPIATES (test code = 638051) Negative PHENCYCLIDINE (test code = 008299) Negative PROPOXYPHENE (test code = 035843) Negative THC (CANNABIS) (test code = 864477) Negative ETHANOL (test code = 819653) Negative BUPRENORPHINE AND [id number] 00:00:00 Test Item Value Reference Range Interpretation Comments NORBUPRENORPHINE (test code = <1.0 ng/mL 80575) BUPRENORPHINE (test code = 46375) <1.0 ng/mL BUPRENORPHINE AND [id number] 00:00:00 Test Item Value Reference Range Interpretation Comments NORBUPRENORPHINE (test code = <1.0 ng/mL 10009) BUPRENORPHINE (test code = 10781) <1.0 ng/mL COMPREHENSIVE METABOLIC [id number] 00:00:00 Test Item Value Reference Range Interpretation Comments GLUCOSE (test code = 2217) 105 MG/DL BUN (test code = 2208) 19 MG/DL CREATININE (test code = 2214) 0.94 MG/DL eGFR AMER. (test code 81 ML/MIN/1.73 = 67602) eGFR NON- AMER. (test 70 ML/MIN/1.73 code = 38339) CALC BUN/CREAT (test code = 20 RATIO 2235) SODIUM (test code = 2231) 139 MEQ/L POTASSIUM (test code = 2228) 5.8 MEQ/L CHLORIDE (test code = 2215) 108 MEQ/L CARBON DIOXIDE (test code = 23 MEQ/L 2205) CALCIUM (test code = 2209) 9.3 MG/DL PROTEIN, TOTAL (test code = 7.4 G/DL 2228) ALBUMIN (test code = 2201) 4.3 G/DL CALC GLOBULIN (test code = 3.1 G/DL 2240) CALC A/G RATIO (test code = 1.4 RATIO 2233) BILIRUBIN, TOTAL (test code = 0.3 MG/DL 2206) ALKALINE PHOSPHATASE (test 122 U/L code = 2204) AST (test code = 2218) 19 U/L ALT (test code = 2219) 18 U/L COMPREHENSIVE METABOLIC [id number] 00:00:00 Test Item Value Reference Range Interpretation Comments GLUCOSE (test code = 2217) 105 MG/DL BUN (test code = 2208) 19 MG/DL CREATININE (test code = 2214) 0.94 MG/DL eGFR AMER. (test code 81 ML/MIN/1.73 = 43485) eGFR NON- AMER. (test 70 ML/MIN/1.73 code = 39225) CALC BUN/CREAT (test code = 20 RATIO 2235) SODIUM (test code = 2231) 139 MEQ/L POTASSIUM (test code = 2228) 5.8 MEQ/L CHLORIDE (test code = 2215) 108 MEQ/L CARBON DIOXIDE (test code = 23 MEQ/L 2206) CALCIUM (test code = 2209) 9.3 MG/DL PROTEIN, TOTAL (test code = 7.4 G/DL 2228) ALBUMIN (test code = 2201) 4.3 G/DL CALC GLOBULIN (test code = 3.1 G/DL 2240) CALC A/G RATIO (test code = 1.4 RATIO 2234) BILIRUBIN, TOTAL (test code = 0.3 MG/DL 2206) ALKALINE PHOSPHATASE (test 122 U/L code = 2204) AST (test code = 2218) 19 U/L ALT (test code = 2219) 18 U/L DRUG SCREEN, [id number] 00:00:00 Test Item Value Reference Range Interpretation Comments AMPHETAMINES (test code = 38058) Negative BARBITURATES (test code = 71336) Negative BENZODIAZEPINES (test code = 20278) Negative COCAINE METABOLITE (test code = Negative 05954) METHADONE (test code = 74228) Negative OPIATES (test code = 963496) Negative PHENCYCLIDINE (test code = 232267) Negative PROPOXYPHENE (test code = 928161) Negative THC (CANNABIS) (test code = 019815) Negative ETHANOL (test code = 656289) Negative DRUG SCREEN, [id number] 00:00:00 Test Item Value Reference Range Interpretation Comments AMPHETAMINES (test code = 64689) Negative BARBITURATES (test code = 42199) Negative BENZODIAZEPINES (test code = 64599) Negative COCAINE METABOLITE (test code = Negative 36726) METHADONE (test code = 90610) Negative OPIATES (test code = 905450) Negative PHENCYCLIDINE (test code = 830642) Negative PROPOXYPHENE (test code = 810579) Negative THC (CANNABIS) (test code = 147377) Negative ETHANOL (test code = 455200) Negative CBC W/AUTO [id number] 00:00:00 Test Item Value Reference Range Interpretation Comments WBC (test code = 1001) 9.9 K/UL RBC (test code = 1002) 4.03 M/UL HEMOGLOBIN (test code = 1003) 11.1 G/DL HEMATOCRIT (test code = 1004) 33.9 % MCV (test code = 1005) 84.1 fL MCH (test code = 1006) 27.5 PG MCHC (test code = 1007) 32.7 G/DL RDW (test code = 1038) 13.6 % NEUTROPHILS (test code = 1008) 68.8 % LYMPHOCYTES (test code = 1010) 22.9 % MONOCYTES (test code = 1011) 5.2 % EOSINOPHILS (test code = 1012) 2.6 % BASOPHILS (test code = 1013) 0.5 % PLATELET COUNT (test code = 1015) 307 K/UL CBC W/AUTO [id number] 00:00:00 Test Item Value Reference Range Interpretation Comments WBC (test code = 1001) 9.9 K/UL RBC (test code = 1002) 4.03 M/UL HEMOGLOBIN (test code = 1003) 11.1 G/DL HEMATOCRIT (test code = 1004) 33.9 % MCV (test code = 1005) 84.1 fL MCH (test code = 1006) 27.5 PG MCHC (test code = 1007) 32.7 G/DL RDW (test code = 1038) 13.6 % NEUTROPHILS (test code = 1008) 68.8 % LYMPHOCYTES (test code = 1010) 22.9 % MONOCYTES (test code = 1011) 5.2 % EOSINOPHILS (test code = 1012) 2.6 % BASOPHILS (test code = 1013) 0.5 % PLATELET COUNT (test code = 1015) 307 K/UL CBC W/AUTO [id number] 00:00:00 Test Item Value Reference Range Interpretation Comments WBC (test code = 1001) 9.9 K/UL RBC (test code = 1002) 4.03 M/UL HEMOGLOBIN (test code = 1003) 11.1 G/DL HEMATOCRIT (test code = 1004) 33.9 % MCV (test code = 1005) 84.1 fL MCH (test code = 1006) 27.5 PG MCHC (test code = 1007) 32.7 G/DL RDW (test code = 1038) 13.6 % NEUTROPHILS (test code = 1008) 68.8 % LYMPHOCYTES (test code = 1010) 22.9 % MONOCYTES (test code = 1011) 5.2 % EOSINOPHILS (test code = 1012) 2.6 % BASOPHILS (test code = 1013) 0.5 % PLATELET COUNT (test code = 1015) 307 K/UL DRUG SCREEN, [id number] 00:00:00 Test Item Value Reference Range Interpretation Comments AMPHETAMINES (test code = 41838) Negative BARBITURATES (test code = 33215) Negative BENZODIAZEPINES (test code = 67933) Positive COCAINE METABOLITE (test code = Negative 75832) METHADONE (test code = 63335) Negative OPIATES (test code = 836322) Negative PHENCYCLIDINE (test code = 866550) Negative PROPOXYPHENE (test code = 860722) Negative THC (CANNABIS) (test code = 871604) Negative ETHANOL (test code = 282314) Negative DRUG SCREEN, [id number] 00:00:00 Test Item Value Reference Range Interpretation Comments AMPHETAMINES (test code = 37041) Negative BARBITURATES (test code = 49069) Negative BENZODIAZEPINES (test code = 80466) Positive COCAINE METABOLITE (test code = Negative 89127) METHADONE (test code = 78601) Negative OPIATES (test code = 464151) Negative PHENCYCLIDINE (test code = 112081) Negative PROPOXYPHENE (test code = 248460) Negative THC (CANNABIS) (test code = 781277) Negative ETHANOL (test code = 442930) Negative BUPRENORPHINE AND [id number] 00:00:00 Test Item Value Reference Range Interpretation Comments NORBUPRENORPHINE (test code = 2.7 ng/mL 00329) BUPRENORPHINE (test code = 95704) 6.4 ng/mL BUPRENORPHINE AND [id number] 00:00:00 Test Item Value Reference Range Interpretation Comments NORBUPRENORPHINE (test code = 2.7 ng/mL 96667) BUPRENORPHINE (test code = 85246) 6.4 ng/mL COMPREHENSIVE METABOLIC PANEL [ADDED]2019-06-15 00:00:00 Test Item Value Reference Range Interpretation Comments GLUCOSE (test code = 2217) 112 MG/DL BUN (test code = 2208) 32 MG/DL CREATININE (test code = 2214) 1.18 MG/DL eGFR AMER. (test code 62 ML/MIN/1.73 = 25871) eGFR NON- AMER. (test 53 ML/MIN/1.73 code = 14663) CALC BUN/CREAT (test code = 27 RATIO 2235) SODIUM (test code = 2231) 136 MEQ/L POTASSIUM (test code = 2228) 6.5 MEQ/L CHLORIDE (test code = 2215) 104 MEQ/L CARBON DIOXIDE (test code = 20 MEQ/L 2206) CALCIUM (test code = 2209) 9.0 MG/DL PROTEIN, TOTAL (test code = 7.0 G/DL 2229) ALBUMIN (test code = 2201) 4.1 G/DL CALC GLOBULIN (test code = 2.9 G/DL 2240) CALC A/G RATIO (test code = 1.4 RATIO 2234) BILIRUBIN, TOTAL (test code = <0.2 MG/DL 2207) ALKALINE PHOSPHATASE (test 122 U/L code = 2204) AST (test code = 2218) 13 U/L ALT (test code = 2219) 10 U/L COMPREHENSIVE METABOLIC PANEL [ADDED]2019-06-15 00:00:00 Test Item Value Reference Range Interpretation Comments GLUCOSE (test code = 2217) 112 MG/DL BUN (test code = 2208) 32 MG/DL CREATININE (test code = 2214) 1.18 MG/DL eGFR AMER. (test code 62 ML/MIN/1.73 = 68371) eGFR NON- AMER. (test 53 ML/MIN/1.73 code = 75097) CALC BUN/CREAT (test code = 27 RATIO 2235) SODIUM (test code = 2231) 136 MEQ/L POTASSIUM (test code = 2228) 6.5 MEQ/L CHLORIDE (test code = 2215) 104 MEQ/L CARBON DIOXIDE (test code = 20 MEQ/L 2205) CALCIUM (test code = 2209) 9.0 MG/DL PROTEIN, TOTAL (test code = 7.0 G/DL 2228) ALBUMIN (test code = 2201) 4.1 G/DL CALC GLOBULIN (test code = 2.9 G/DL 2239) CALC A/G RATIO (test code = 1.4 RATIO 223) BILIRUBIN, TOTAL (test code = <0.2 MG/DL 2206) ALKALINE PHOSPHATASE (test 122 U/L code = 2204) AST (test code = 2218) 13 U/L ALT (test code = 2219) 10 U/L LIPID PANEL [ADDED]2019-06-15 00:00:00 Test Item Value Reference Range Interpretation Comments CHOLESTEROL (test code = 2210) 133 MG/DL TRIGLYCERIDES (test code = 2232) 142 MG/DL HDL CHOLESTEROL (test code = 2220) 52 MG/DL CALC LDL CHOL (test code = 2237) 58 MG/DL RISK RATIO LDL/HDL (test code = 1.12 RATIO 2238) LIPID PANEL [ADDED]2019-06-15 00:00:00 Test Item Value Reference Range Interpretation Comments CHOLESTEROL (test code = 2210) 133 MG/DL TRIGLYCERIDES (test code = 2232) 142 MG/DL HDL CHOLESTEROL (test code = 2220) 52 MG/DL CALC LDL CHOL (test code = 2237) 58 MG/DL RISK RATIO LDL/HDL (test code = 1.12 RATIO 2238) TSH, THIRD GENERATION [ADDED]2019-06-15 00:00:00 Test Item Value Reference Range Interpretation Comments TSH, THIRD GENERATION (test code 5.610 UIU/ML = 2821) TSH, THIRD GENERATION [ADDED]2019-06-15 00:00:00 Test Item Value Reference Range Interpretation Comments TSH, THIRD GENERATION (test code 5.610 UIU/ML = 2821) TSH, THIRD GENERATION [ADDED]2019-06-15 00:00:00 Test Item Value Reference Range Interpretation Comments TSH, THIRD GENERATION (test code 5.610 UIU/ML = 2821) CBC W/AUTO DIFF WITH PLATELETS [ADDED]2019-06-15 00:00:00 Test Item Value Reference Range Interpretation Comments WBC (test code = 1001) 6.1 K/UL RBC (test code = 1002) 3.81 M/UL HEMOGLOBIN (test code = 1003) 10.4 G/DL HEMATOCRIT (test code = 1004) 32.0 % MCV (test code = 1005) 84.0 fL MCH (test code = 1006) 27.3 PG MCHC (test code = 1007) 32.5 G/DL RDW (test code = 1038) 13.6 % NEUTROPHILS (test code = 1008) 56.9 % LYMPHOCYTES (test code = 1010) 31.6 % MONOCYTES (test code = 1011) 4.5 % EOSINOPHILS (test code = 1012) 6.3 % BASOPHILS (test code = 1013) 0.7 % PLATELET COUNT (test code = 1015) 331 K/UL CBC W/AUTO DIFF WITH PLATELETS [ADDED]2019-06-15 00:00:00 Test Item Value Reference Range Interpretation Comments WBC (test code = 1001) 6.1 K/UL RBC (test code = 1002) 3.81 M/UL HEMOGLOBIN (test code = 1003) 10.4 G/DL HEMATOCRIT (test code = 1004) 32.0 % MCV (test code = 1005) 84.0 fL MCH (test code = 1006) 27.3 PG MCHC (test code = 1007) 32.5 G/DL RDW (test code = 1038) 13.6 % NEUTROPHILS (test code = 1008) 56.9 % LYMPHOCYTES (test code = 1010) 31.6 % MONOCYTES (test code = 1011) 4.5 % EOSINOPHILS (test code = 1012) 6.3 % BASOPHILS (test code = 1013) 0.7 % PLATELET COUNT (test code = 1015) 331 K/UL CBC W/AUTO DIFF WITH PLATELETS [ADDED]2019-06-15 00:00:00 Test Item Value Reference Range Interpretation Comments WBC (test code = 1001) 6.1 K/UL RBC (test code = 1002) 3.81 M/UL HEMOGLOBIN (test code = 1003) 10.4 G/DL HEMATOCRIT (test code = 1004) 32.0 % MCV (test code = 1005) 84.0 fL MCH (test code = 1006) 27.3 PG MCHC (test code = 1007) 32.5 G/DL RDW (test code = 1038) 13.6 % NEUTROPHILS (test code = 1008) 56.9 % LYMPHOCYTES (test code = 1010) 31.6 % MONOCYTES (test code = 1011) 4.5 % EOSINOPHILS (test code = 1012) 6.3 % BASOPHILS (test code = 1013) 0.7 % PLATELET COUNT (test code = 1015) 331 K/UL BENZODIAZEPINE, QUANT, URINE [REFLEX]2019-05-26 00:00:00 Test Item Value Reference Range Interpretation Comments HYDROXYALPRAZOLAM INTERP (test code Positive = 49875) HYDROXYALPRAZOLAM QNT (test code = 883 ng/mL 418705) LORAZEPAM INTERP (test code = Negative 22064) LORAZEPAM QNT (test code = 20178) <50 ng/mL OXAZEPAM INTERP (test code = 81469) Negative OXAZEPAM QNT (test code = 17304) <50 ng/mL TEMAZEPAM INTERP (test code = Negative 058054) TEMAZEPAM QNT (test code = 158826) <50 ng/mL NORDIAZEPAM INTERP (test code = Negative 37690) NORDIAZEPAM QNT (test code = 49528) <50 ng/mL AL-NBWWW-BQPIQVHJGZ INTERP (test Negative code = 827713) SL-JLBKX-IJZUQQVTEM QNT (test code <50 ng/mL = 609196) 7-AMINOCLONAZEPAM INTERP (test code Negative = 157579) 7-AMINOCLONAZEPAM QNT (test code = <50 ng/mL 444986) 7-AMINOFLUNITRAZEPAM INTERP (test Negative code = 803725) 7-AMINOFLUNITRAZEPAM QNT (test code <50 ng/mL = 478315) HYDROXYTRIAZOLAM INTERP (test code Negative = 525244) HYDROXYTRIAZOLAM QNT (test code = <50 ng/mL 046723) BENZODIAZEPINE, QUANT, URINE [REFLEX]2019-05-26 00:00:00 Test Item Value Reference Range Interpretation Comments HYDROXYALPRAZOLAM INTERP (test code Positive = 82580) HYDROXYALPRAZOLAM QNT (test code = 883 ng/mL 966448) LORAZEPAM INTERP (test code = Negative 29780) LORAZEPAM QNT (test code = 89502) <50 ng/mL OXAZEPAM INTERP (test code = 36757) Negative OXAZEPAM QNT (test code = 37086) <50 ng/mL TEMAZEPAM INTERP (test code = Negative 860127) TEMAZEPAM QNT (test code = 655494) <50 ng/mL NORDIAZEPAM INTERP (test code = Negative 91483) NORDIAZEPAM QNT (test code = 51675) <50 ng/mL UW-IXVVW-XUDRPAIQEH INTERP (test Negative code = 780259) PI-UCJZN-APLONUPHGE QNT (test code <50 ng/mL = 872799) 7-AMINOCLONAZEPAM INTERP (test code Negative = 544575) 7-AMINOCLONAZEPAM QNT (test code = <50 ng/mL 278969) 7-AMINOFLUNITRAZEPAM INTERP (test Negative code = 567544) 7-AMINOFLUNITRAZEPAM QNT (test code <50 ng/mL = 963304) HYDROXYTRIAZOLAM INTERP (test code Negative = 532781) HYDROXYTRIAZOLAM QNT (test code = <50 ng/mL 991661) BUPRENORPHINE, QUANT, URINE [REFLEX]2019-05-26 00:00:00 Test Item Value Reference Range Interpretation Comments BUPRENORPHINE INTERP (test code = Positive 28360) BUPRENORPHINE QNT (test code = 65 ng/mL 62145) HEPATITIS PROFILE (A,B,C)2019-05-25 00:00:00 Test Item Value Reference Range Interpretation Comments HEPATITIS A TOTAL AB (test code NON-REACTIVE = 2725) HEPATITIS B SURF AG (test code = NON-REACTIVE 2739) HEP B CORE TOTAL AB (test code = REACTIVE 2729) HEPATITIS B SURFACE AB (test NON-REACTIVE code = 2737) HEPATITIS C ANTIBODY (test code NON-REACTIVE = 4675) INTERPRETATION HEPATITIS A: (NOTE) (test code = 2552) INTERPRETATION HEPATITIS B: (NOTE) (test code = 71702) INTERPRETATION HEPATITIS C: (NOTE) (test code = 21169) HEPATITIS PROFILE (A,B,C)2019-05-25 00:00:00 Test Item Value Reference Range Interpretation Comments HEPATITIS A TOTAL AB (test code NON-REACTIVE = 2725) HEPATITIS B SURF AG (test code = NON-REACTIVE 9) HEP B CORE TOTAL AB (test code = REACTIVE 2729) HEPATITIS B SURFACE AB (test NON-REACTIVE code = 2737) HEPATITIS C ANTIBODY (test code NON-REACTIVE = 4675) INTERPRETATION HEPATITIS A: (NOTE) (test code = 2552) INTERPRETATION HEPATITIS B: (NOTE) (test code = 87005) INTERPRETATION HEPATITIS C: (NOTE) (test code = 42846) HIV AB/AG COMBO RFLX [id number] 00:00:00 Test Item Value Reference Range Interpretation Comments HIV 1/2 4TH GEN, RFLX CONF (test NON-REACTIVE code = 3514) HIV AB/AG COMBO RFLX [id number] 00:00:00 Test Item Value Reference Range Interpretation Comments HIV 1/2 4TH GEN, RFLX CONF (test NON-REACTIVE code = 3514) DRUG ABUSE PANEL 10 WITH [id number] 00:00:00 Test Item Value Reference Range Interpretation Comments AMPHETAMINES (test code = NEGATIVE 3201) BARBITURATES (test code = NEGATIVE 3202) BENZODIAZEPINES (test code SEE REFLEX TESTING = 3203) CANNABINOIDS (test code = NEGATIVE 3204) COCAINE METABOLITE (test NEGATIVE code = 3205) OPIATES (test code = 3209) NEGATIVE OXYCODONE (test code = NEGATIVE 02080) PHENCYCLIDINE (test code = NEGATIVE 3210) METHADONE (test code = NEGATIVE 3207) BUPRENORPHINE (test code = SEE REFLEX TESTING 17967) DRUG ABUSE PANEL 10 WITH [id number] 00:00:00 Test Item Value Reference Range Interpretation Comments AMPHETAMINES (test code = NEGATIVE 3201) BARBITURATES (test code = NEGATIVE 3202) BENZODIAZEPINES (test code SEE REFLEX TESTING = 3203) CANNABINOIDS (test code = NEGATIVE 3204) COCAINE METABOLITE (test NEGATIVE code = 3205) OPIATES (test code = 3209) NEGATIVE OXYCODONE (test code = NEGATIVE 22431) PHENCYCLIDINE (test code = NEGATIVE 3210) METHADONE (test code = NEGATIVE 3207) BUPRENORPHINE (test code = SEE REFLEX TESTING 62914) CBC W/AUTO [id number] 00:00:00 Test Item Value Reference Range Interpretation Comments WBC (test code = 1001) 8.4 K/UL RBC (test code = 1002) 3.94 M/UL HEMOGLOBIN (test code = 1003) 10.9 G/DL HEMATOCRIT (test code = 1004) 33.1 % MCV (test code = 1005) 84.0 fL MCH (test code = 1006) 27.7 PG MCHC (test code = 1007) 32.9 G/DL RDW (test code = 1038) 13.2 % NEUTROPHILS (test code = 1008) 68.4 % LYMPHOCYTES (test code = 1010) 20.8 % MONOCYTES (test code = 1011) 5.4 % EOSINOPHILS (test code = 1012) 4.8 % BASOPHILS (test code = 1013) 0.6 % PLATELET COUNT (test code = 1015) 320 K/UL CBC W/AUTO [id number] 00:00:00 Test Item Value Reference Range Interpretation Comments WBC (test code = 1001) 8.4 K/UL RBC (test code = 1002) 3.94 M/UL HEMOGLOBIN (test code = 1003) 10.9 G/DL HEMATOCRIT (test code = 1004) 33.1 % MCV (test code = 1005) 84.0 fL MCH (test code = 1006) 27.7 PG MCHC (test code = 1007) 32.9 G/DL RDW (test code = 1038) 13.2 % NEUTROPHILS (test code = 1008) 68.4 % LYMPHOCYTES (test code = 1010) 20.8 % MONOCYTES (test code = 1011) 5.4 % EOSINOPHILS (test code = 1012) 4.8 % BASOPHILS (test code = 1013) 0.6 % PLATELET COUNT (test code = 1015) 320 K/UL CBC W/AUTO [id number] 00:00:00 Test Item Value Reference Range Interpretation Comments WBC (test code = 1001) 8.4 K/UL RBC (test code = 1002) 3.94 M/UL HEMOGLOBIN (test code = 1003) 10.9 G/DL HEMATOCRIT (test code = 1004) 33.1 % MCV (test code = 1005) 84.0 fL MCH (test code = 1006) 27.7 PG MCHC (test code = 1007) 32.9 G/DL RDW (test code = 1038) 13.2 % NEUTROPHILS (test code = 1008) 68.4 % LYMPHOCYTES (test code = 1010) 20.8 % MONOCYTES (test code = 1011) 5.4 % EOSINOPHILS (test code = 1012) 4.8 % BASOPHILS (test code = 1013) 0.6 % PLATELET COUNT (test code = 1015) 320 K/UL COMPREHENSIVE METABOLIC [id number] 00:00:00 Test Item Value Reference Range Interpretation Comments GLUCOSE (test code = 2217) 121 MG/DL BUN (test code = 2208) 25 MG/DL CREATININE (test code = 2214) 1.01 MG/DL eGFR AMER. (test code 75 ML/MIN/1.73 = 75332) eGFR NON- AMER. (test 64 ML/MIN/1.73 code = 95108) CALC BUN/CREAT (test code = 25 RATIO 2235) SODIUM (test code = 2231) 137 MEQ/L POTASSIUM (test code = 2228) 6.3 MEQ/L CHLORIDE (test code = 2215) 102 MEQ/L CARBON DIOXIDE (test code = 24 MEQ/L 2205) CALCIUM (test code = 2209) 9.0 MG/DL PROTEIN, TOTAL (test code = 7.1 G/DL 2228) ALBUMIN (test code = 2201) 4.3 G/DL CALC GLOBULIN (test code = 2.8 G/DL 0) CALC A/G RATIO (test code = 1.5 RATIO 4) BILIRUBIN, TOTAL (test code = 0.2 MG/DL 2206) ALKALINE PHOSPHATASE (test 129 U/L code = 2204) AST (test code = 2218) 12 U/L ALT (test code = 2219) 11 U/L COMPREHENSIVE METABOLIC [id number] 00:00:00 Test Item Value Reference Range Interpretation Comments GLUCOSE (test code = 2217) 121 MG/DL BUN (test code = 2208) 25 MG/DL CREATININE (test code = 2214) 1.01 MG/DL eGFR AMER. (test code 75 ML/MIN/1.73 = 57943) eGFR NON- AMER. (test 64 ML/MIN/1.73 code = 40717) CALC BUN/CREAT (test code = 25 RATIO 2235) SODIUM (test code = 2231) 137 MEQ/L POTASSIUM (test code = 2228) 6.3 MEQ/L CHLORIDE (test code = 2215) 102 MEQ/L CARBON DIOXIDE (test code = 24 MEQ/L 2205) CALCIUM (test code = 2208) 9.0 MG/DL PROTEIN, TOTAL (test code = 7.1 G/DL 2228) ALBUMIN (test code = 2200) 4.3 G/DL CALC GLOBULIN (test code = 2.8 G/DL 2239) CALC A/G RATIO (test code = 1.5 RATIO 2233) BILIRUBIN, TOTAL (test code = 0.2 MG/DL 2206) ALKALINE PHOSPHATASE (test 129 U/L code = 2203) AST (test code = 2218) 12 U/L ALT (test code = 2219) 11 U/L
[2021-11-28] MEDS ORDERED: KETOROLAC 30 MG/ML INJ ONE (20:47)
[2021-11-28] MEDS ORDERED: NALOXONE 0.4 MG/ML VIAL ONE (21:34)
[2021-11-28] MEDS ORDERED: NA CHLORIDE 0.9% 500 ML ONE (21:44)
[2021-11-28 22:00] LABS: Absolute Lymphocytes (CBC) 1.7 K/uL (0.7-4.9); Hematocrit 28.7 % (36.0-45.0); Lymphocytes % 27.1 % (15.3-44.8); MCV 84.7 fL (80-100); MPV 6.5 fL (7.6-11.3); RBC Red Blood Cell Count 3.39 M/uL (3.86-4.86)
--- NOTE | 2021-11-28 22:09 | RAD REPORT ---
EXAM DESCRIPTION: RAD - Chest Single View - 11/28/2021 10:01 pm CLINICAL HISTORY: SWELLING Chest pain. COMPARISON: <Comparisons> FINDINGS: Portable technique limits examination quality. Mild pulmonary edema. The heart is mildly enlarged in size. No displaced fractures. IMPRESSION: Mild CHF.
[2021-11-28 22:10] LABS: Protime INR 1.08
[2021-11-28 22:32] LABS: ALT/SGPT 20 U/L (12-78); AST/SGOT 13 U/L (15-37); Albumin 2.8 g/dL (3.4-5.0); Alkaline Phosphatase 94 U/L (45-117); BUN Blood Urea Nitrogen 18 mg/dL (7-18); Bicarbonate 29 mmol/L (21-32); Bilirubin Total 0.2 mg/dL (0.2-1.0); Glomerular Filtration Rate 49 ml/min (=/>90); Glucose Level 147 mg/dL (74-106); Potassium 4.1 mmol/L (3.5-5.1); Protein, Total 6.5 g/dL (6.4-8.2); Sodium Level 137 mmol/L (136-145)
[2021-11-28 22:33] LABS: Bilirubin Direct < 0.1 mg/dL (0-0.2)
[2021-11-28 22:33] LABS: Barbiturates NEGATIVE (NEGATIVE); Benzodiazepines POSITIVE (NEGATIVE); Cocaine NEGATIVE (NEGATIVE); METHAMPHETAM NEGATIVE (NEGATIVE); Methadone NEGATIVE (NEGATIVE); Opiates NEGATIVE (NEGATIVE); Phencyclidine NEGATIVE (NEGATIVE); THC Cannibis NEGATIVE (NEGATIVE)
--- NOTE | 2021-11-28 22:42 | RAD REPORT ---
EXAM DESCRIPTION: CT - Head Brain Wo Cont - 11/28/2021 10:35 pm CLINICAL HISTORY: fall, drowsy Headache, drowsiness, head injury COMPARISON: Head Brain Wo Cont dated 10/26/2021; Head Brain Wo Cont dated 02/09/2020; Abdomen Pelvis Wo Contrast dated 11/28/2021 TECHNIQUE: All CT scans are performed using dose optimization technique as appropriate and may inclu de automated exposure control or mA/KV adjustment according to patient size. FINDINGS: No intracranial hemorrhage, hydrocephalus or extra-axial fluid collection.Moderate brain a trophy.No areas of brain edema or evidence of midline shift. The paranasal sinuses and mastoids are clear. The calvarium is intact. IMPRESSION: No acute intracranial abnormality.
--- NOTE | 2021-11-28 22:44 | RAD REPORT ---
EXAM DESCRIPTION: CT - Abdomen Pelvis Wo Contrast - 11/28/2021 10:35 pm CLINICAL HISTORY: Abdominal pain. fall, pain, hypotension COMPARISON: Stone Protocol dated 10/26/2021 TECHNIQUE: CT imaging of the abdomen and pelvis was performed without contrast. Solid organ, bowel a nd vascular assessment is limited due to lack of IV and oral contrast. All CT scans are performed using dose optimization technique as appropriate and may include automated exposure control or mA/KV adjustment according to patient size. FINDINGS: The lower lung rosenbaum are clear.Cholecystectomy clips. The liver, spleen, pancreas, adrenal glands and kidneys are within normal limits for a limited non-co ntrast examination. No bowel obstruction, free air, free fluid or abscess. The appendix is normal. Mild lower lumbar degenerative changes. IMPRESSION: No acute intra-abdominal or pelvic findings. A limited non-contrast examination was performed as detailed.
--- NOTE | 2021-11-28 23:07 | EDPHYS ---
Physician Documentation [facility] Name: Tabatha Chambers Age: 56 yrs Sex: Female : 1965 Arrival Date: 11/28/2021 Time: 20:21 Bed 26 Private MD: ED Physician Miguel Pollard HPI: 11/28 23:05 This 56 yrs old Female presents to ER via EMS with complaints of Back Pain. kb 23:05 The patient presents with pain that is chronic. The symptoms are located in the low kb back. Onset: The symptoms/episode began/occurred today. The pain does not radiate. Associated signs and symptoms: The patient has no apparent associated signs or symptoms. The problem was sustained during a fall. Modifying factors: The patient symptoms are alleviated by nothing, the patient symptoms are aggravated by any movement. Severity of symptoms: At their worst the symptoms were moderate, in the emergency department the symptoms are unchanged. The patient has experienced similar episodes in the past. The patient has not recently seen a physician. Pt reports chronic back pain. Today she was playing with the kids and fell causing pain in back to increase. Historical: - PMHx: 20:33 Hypertension; Seizures; tw5 - PSHx: 20:33 ankle SX; Cholecystectomy; tubes tied; tw5 - Immunization history:: Adult Immunizations not up to date. - Social history:: Smoking status: Patient denies any tobacco usage or history of. ROS: 23:03 Constitutional: Negative for fever, chills, and weight loss. kb 23:03 Back: Positive for pain at rest, pain with movement, of the lumbar area and right low back. 23:03 All other systems are negative. Exam: : ECG was reviewed by the Attending Physician. kb 21:50 Head/Face: Normocephalic, atraumatic. Eyes: Pupils equal round and reactive to light, kb extra-ocular motions intact. Lids and lashes normal. Conjunctiva and sclera are non-icteric and not injected. Cornea within normal limits. Periorbital areas with no swelling, redness, or edema. ENT: Moist Mucous membranes Respiratory: Respirations even and unlabored. No increased work of breathing. Talking in full sentences Abdomen/GI: Soft, non-tender. No distention Skin: Warm, dry with normal turgor. Normal color. MS/ Extremity: Pulses equal, no cyanosis. Neurovascular intact. Full, normal range of motion. Neuro: Awake and alert, GCS 15, oriented to person, place, time, and situation. Moves all extremities. Normal gait. 21:50 Constitutional: The patient appears alert, awake, drowsy 21:50 Back: pain, that is moderate, of the lumbar area and right low back, ROM is painful, normal spinal alignment noted. 21:52 Cardiovascular: Rate: normal, Rhythm: regular, Pulses: no pulse deficits are kb appreciated, Edema: 2+ edema to level of left foot and right foot. Vital Signs: 20:34 BP 103 / 66; Pulse 80; Resp 12; Temp 97.8; Pulse Ox 93% on R/A; Weight 113.4 kg; Height tw5 5 ft. 5 in. (165.10 cm); Pain 10/10; 21:30 BP 77 / 48; Pulse 83; Resp 16; Pulse Ox 94% ; ll3 22:08 BP 91 / 63; Pulse 77; Resp 14; Pulse Ox 95% on R/A; ll3 22:23 Weight 151.5 kg; tw5 23:24 BP 91 / 56 Supine; Pulse 70; Resp 18; Pulse Ox 95% on R/A; tw5 23:24 BP 103 / 65 Sitting; Pulse 80; Pulse Ox 92% on R/A; tw5 23:32 BP 120 / 85 Standing; Pulse 80; Pulse Ox 92% ; tw5 11/29 00:06 BP 94 / 58; Pulse 70; Resp 20; Pulse Ox 96% on R/A; ll3 11/28 22:23 Body Mass Index 55.58 (151.50 kg, 165.10 cm) tw5 MDM: 11/28 20:23 Patient medically screened. kb 21:25 Data reviewed: vital signs, nurses notes. Data interpreted: Pulse oximetry: on room air kb is 93 %. Interpretation: normal. 23:01 Counseling: I had a detailed discussion with the patient and/or guardian regarding: the kb historical points, exam findings, and any diagnostic results supporting the discharge/admit diagnosis, lab results, radiology results, the need for further work-up and treatment in the hospital. 23:03 Physician consultation: Zohra Walker PA-C was contacted at 23:03, regarding admission, kb to the telemetry unit. patient's condition, and will see patient in ED. 23:04 ED course: Blood pressure decreased, pt became more drowsy. Pt responsive to voice, kb oriented x4. . 23:07 ED course: Pt reports she has not been taking her lasix for a few days because it kb causes her to urinate a lot and she didn't want to.. 11/28 21:25 Order name: Basic Metabolic Panel; Complete Time: 22:35 kb 11/28 21:25 Order name: CBC with Diff; Complete Time: 22:05 kb 11/28 21:25 Order name: ETOH Level; Complete Time: 22:31 kb 11/28 21:25 Order name: Hepatic Function; Complete Time: 22:35 kb 11/28 21:25 Order name: PT-INR; Complete Time: 22:18 kb 11/28 21:25 Order name: Ptt, Activated; Complete Time: 22:18 kb 11/28 21:25 Order name: Salicylate; Complete Time: 22:31 kb 11/28 21:25 Order name: Urine Drug Screen; Complete Time: 22:35 kb 11/28 21:45 Order name: Troponin HS; Complete Time: 22:39 kb 11/28 21:45 Order name: BNP; Complete Time: 22:39 kb 11/28 23:32 Order name: SARS-COV-2 Antigen Rapid; Complete Time: 00:24 tw5 11/29 04:16 Order name: CBC with Automated Diff; Complete Time: 04:35 EDMS 11/29 04:43 Order name: Basic Metabolic Panel; Complete Time: 05:40 EDMS 11/29 04:43 Order name: Lipid Profile; Complete Time: 05:40 EDMS 11/28 20:24 Order name: Chest Single View XRAY; Complete Time: 22:18 kb 11/28 21:25 Order name: IV Start; Complete Time: 21:27 kb 11/28 21:25 Order name: Labs collected and sent; Complete Time: 21:33 kb 11/28 21:38 Order name: CT Abd/Pelvis - Without Contrast; Complete Time: 22:50 kb 11/28 21:39 Order name: CT Head Brain wo Cont; Complete Time: 22:46 kb 11/29 04:43 Order name: Magnesium; Complete Time: 05:40 EDMS 11/29 04:43 Order name: Thyroid Stimulating Hormone; Complete Time: 05:40 EDMS 11/29 05:29 Order name: T4 Free; Complete Time: 05:40 EDMS 11/29 12:37 Order name: Valproic Acid (Depakene) Level; Complete Time: 13:00 EDMS 11/29 13:08 Order name: ABG Arterial Blood Gas; Complete Time: 13:57 EDMS EC:26 Rate is 84 beats/min. Rhythm is regular. QRS [place] is Normal. [place] interval is normal at kb 146 msec. QRS interval is normal at 80 msec. QT interval is normal at 460 msec. Administered Medications: 20:46 Drug: Ketorolac 30 mg Route: IM; Site: right deltoid; ll3 23:16 Follow up: Response: No adverse reaction ll3 21:26 Drug: NARcan (naloxone) 0.4 mg Route: IVP; Site: right antecubital; ll3 23:16 Follow up: Response: No adverse reaction; No change in condition ll3 21:35 Drug: NS 0.9% 500 ml Route: IV; Rate: bolus; Site: right antecubital; ll3 23:16 Follow up: Response: No adverse reaction; IV Status: Completed infusion; IV Intake: ll3 500ml 23:12 Drug: Albumin 25 grams Volume: 100 ml; Route: IVPB; Site: right antecubital; ll3 Disposition: 11/29 02:07 Co-signature as Attending Physician, Miguel ALFORD was immediately available onsite ms3 in the emergency department for consultation in the care of the patient. 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 EDMS EDMS 11/29 00:51 11/28 23:07 Telemetry/MedSurg (observation) kb mw 11/29 00:51 11/28 23:07 kb mw 11/29 16:50 00:51 [facility] ER HOLD mw dw 16:50 00:51 ERHOLD- mw dw
--- NOTE | 2021-11-28 23:07 | ER ---
Nurse's Notes [facility] Name: Tabatha Chambers Age: 56 yrs Sex: Female : 1965 Arrival Date: 11/28/2021 Time: 20:21 Bed 26 Private MD: Diagnosis: Hypotension, unspecified;Acute on chronic combined systolic (congestive) and diastolic (congestive) heart failure Presentation: 11/28 20:21 Chief complaint: Patient states: She has been having increased back pain, swelling of tw5 legs and weakness. Her main complaint is the pain in her back. Coronavirus screen:. Ebola Screen: Patient negative for fever greater than or equal to 101.5 degrees Fahrenheit, and additional compatible Ebola Virus Disease symptoms Patient denies exposure to infectious person. Patient denies travel to an Ebola-affected area in the 21 days before illness onset. 20:21 Method Of Arrival: EMS: [facility] tw5 20:24 Initial Sepsis Screen:. Risk Assessment: Do you want to hurt yourself or someone else? tw5 Patient reports no desire to harm self or others. Onset of symptoms is unknown. 20:24 Acuity: VERO 3 tw5 20:34 Initial Sepsis Screen: Does the patient meet any 2 criteria? No. Patient's initial tw5 sepsis screen is negative. Does the patient have a suspected source of infection? No. Patient's initial sepsis screen is negative. Triage Assessment: 20:34 General: Appears obese, Behavior is drowsy. Musculoskeletal: Reports pain in back. tw5 Historical: - PMHx: 20:33 Hypertension; Seizures; tw5 - PSHx: 20:33 ankle SX; Cholecystectomy; tubes tied; tw5 - Immunization history:: Adult Immunizations not up to date. - Social history:: Smoking status: Patient denies any tobacco usage or history of. Screenin:56 Abuse screen: Denies threats or abuse. Denies injuries from another. Nutritional ll3 screening: No deficits noted. Tuberculosis screening: No symptoms or risk factors identified. Fall Risk Fall in past 12 months (25 points). Secondary diagnosis (15 points) seizures, No IV (0 pts). Ambulatory Aid- None/Bed Rest/Nurse Assist (0 pts). Gait- Weak (10 pts.). Mental Status- Oriented to own ability (0 pts). Total Kim Fall Scale indicates High Risk Score (45 or more points). Fall prevention measures have been instituted. Side Rails Up X 2. Assessment: 20:32 General: Reports " I cannot wipe myself clean, I need you to do it, my back hurts too tw5 much." Patient states daughter at home will have to help with her ADLS when she gets home. General: Behavior is drowsy, Patient escorted back to bed, and falling asleep mid conversation . Pain: Pain currently is 10 out of 10 on a pain scale. Neuro: Level of Consciousness is obeys commands, Oriented to person, place, time, situation. 22:08 Neuro: Level of Consciousness is obeys commands, lethargic, Speech is slurred, Reports ll3 Drowsiness. 23:33 General: Appears Behavior is drowsy. Neuro: Level of Consciousness is lethargic. tw5 11/29 00:06 Reassessment: Patient appears in no apparent distress at this time. No changes from ll3 previously documented assessment. Patient and/or family updated on plan of care and expected duration. Pain level reassessed. Pt is sleeping in bed with eyes closed, no s/s of distress. Vital Signs: 11/28 20:34 BP 103 / 66; Pulse 80; Resp 12; Temp 97.8; Pulse Ox 93% on R/A; Weight 113.4 kg; Height tw5 5 ft. 5 in. (165.10 cm); Pain 10/10; 21:30 BP 77 / 48; Pulse 83; Resp 16; Pulse Ox 94% ; ll3 22:08 BP 91 / 63; Pulse 77; Resp 14; Pulse Ox 95% on R/A; ll3 22:23 Weight 151.5 kg; tw5 23:24 BP 91 / 56 Supine; Pulse 70; Resp 18; Pulse Ox 95% on R/A; tw5 23:24 BP 103 / 65 Sitting; Pulse 80; Pulse Ox 92% on R/A; tw5 23:32 BP 120 / 85 Standing; Pulse 80; Pulse Ox 92% ; tw5 11/29 00:06 BP 94 / 58; Pulse 70; Resp 20; Pulse Ox 96% on R/A; ll3 11/28 22:23 Body Mass Index 55.58 (151.50 kg, 165.10 cm) tw5 ED Course: 11/28 20:21 Patient arrived in ED. tw5 20:23 [facility]C [facility] kb 20:23 Miguel Pollard DO is Attending Physician. kb 20:24 Assisted to bedside commode. tw5 20:25 Triage completed. tw5 20:34 Arm band placed on Patient placed in an exam room. tw5 20:56 Patient has correct armband on for positive identification. Bed in low position. Call ll3 light in reach. Side rails up X2. 21:25 Pulse ox on. NIBP on. tw5 21:25 Initial lab(s) drawn, by me, sent to lab. Inserted saline lock: 20 gauge in right tw5 antecubital area, using aseptic technique. Blood collected. 22:03 Chest Single View XRAY In Process Unspecified. EDMS 22:36 CT Abd/Pelvis - Without Contrast In Process Unspecified. EDMS 22:36 CT Head Brain wo Cont In Process Unspecified. EDMS 23:06 Gavin Crum is Hospitalizing Provider. kb 11/29 00:45 Cameron Camarena, MARION is Primary Nurse. ll3 06:14 No provider procedures requiring assistance completed. ll3 08:19 Primary Nurse role handed off by Cameron Camarena, MARION eb Administered Medications: 11/28 20:46 Drug: Ketorolac 30 mg Route: IM; Site: right deltoid; ll3 23:16 Follow up: Response: No adverse reaction ll3 21:26 Drug: NARcan (naloxone) 0.4 mg Route: IVP; Site: right antecubital; ll3 23:16 Follow up: Response: No adverse reaction; No change in condition ll3 21:35 Drug: NS 0.9% 500 ml Route: IV; Rate: bolus; Site: right antecubital; ll3 23:16 Follow up: Response: No adverse reaction; IV Status: Completed infusion; IV Intake: ll3 500ml 23:12 Drug: Albumin 25 grams Volume: 100 ml; Route: IVPB; Site: right antecubital; ll3 Medication: 11/29 06:14 VIS not applicable for this client. ll3 Intake: 11/28 23:16 IV: 500ml; Total: 500ml. ll3 Outcome: 23:07 Decision to Hospitalize by Provider. kb 11/29 01:00 Admitted to ER Hold. Please see [employer] for further documentation. kl 17:33 Patient left the ED. aa5 Signatures: Dispatcher [employer] EDMargo Montoya, LOBITO-C FIOS LINE INSTALLER-Alyssa Rodarte RN RN Makayla Esposito RN RN aa5 Juliann Carpenter Tiffany tw5 Cameron Camarena RN RN ll3 Corrections: (The following items were deleted from the chart) 00:30 11/28 20:24 Acuity: VERO 4 tw5 tw5
[2021-11-28] MEDS ORDERED: ALBUMIN HUMAN 25% 100 ML IV ONE (23:16)
[2021-11-29 00:14] LABS: SARS-CoV-2 Antigen Rapid Res Negative (Negative)
--- NOTE | 2021-11-29 00:20 | P.HP ---
Certification for Inpatient Patient admitted to: Observation With expected LOS: <2 Midnights Patient will require the following post-hospital care: None Practitioner: I am a practitioner with admitting privileges, knowledge of patient current condition, hospital course, and medical plan of care. Services: Services provided to patient in accordance with Admission requirements found in Title 42 Section 412.3 of the Code of Federal Regulations Patient History Date of Service: 11/29/21 Primary Care Provider: Aram Reason for admission: Hypotension, CHF History of Present Illness: Patient is a 56-year-old female with history of hypertension, epilepsy, morbid obesity, chronic back pain, anxiety, and chronic kidney disease who presented to the ED with complaints of back pain. She states that she was playing with her kids today and fell and now is having severe back pain. She is also complaining of bilateral feet swelling. She was noted to be drowsy and hypotensive in ED- . She later revealed that she is prescribed lasix daily but has not been taking it because it makes her urinate too often. Head CT and abdomen pelvis CT negative. BNP 232, hgb 9.5. Chest xray showed mild pulmonary edema. She was given 500 cc bolus and 25 mg albumin in ED with improvement in BP. Orthostatic vitals negative. ED provider wishes to admit patient for observation. Allergies No Known Drug Allergies Allergy (Verified 07/10/20 04:29) Unknown Home medications list reviewed: Yes Home Medications: Atorvastatin Calcium 20 tab DAILY 07/04/19 Propranolol [Inderal*] 10 mg PO TID 07/04/19 Quetiapine Fumarate [Seroquel] 200 tab BID 07/04/19 Tizanidine [Zanaflex*] 4 tab PO TIDP PRN 07/04/19 Divalproex Sodium [Depakote] 500 mg PO BID 07/11/20 Alprazolam [Xanax] 1 mg PO DAILY PRN 10/28/21 Duloxetine HCl [Cymbalta] 1 tab PO DAILY 10/28/21 levETIRAcetam [Keppra*] 1 tab PO BID 10/28/21 Furosemide [Lasix] 20 mg PO DAILY #30 tab 10/29/21 Na Bicarb Tab [Sodium Bicarb 325 MG] 325 mg PO BID #60 tab 10/29/21 Potassium Chloride [K-Dur] 10 meq PO M,W,F #12 10/29/21 - Past Medical/Surgical History Diabetic: No -: schizophrenia -: bipolar -: htn -: epilepsy -: tubal ligation -: left ankle -: ectopic Psychosocial/ Personal History: Patient lives at home with her kids. - Family History Mother -: Hypertension, Diabetes, Stroke - Social History Smoking Status: Former smoker Alcohol use: No CD- Drugs: Yes Caffeine use: No Place of Residence: Home Review of Systems General: Weakness Musculoskeletal: Back Pain Physical Examination - Physical Exam General: Alert, In no apparent distress, Obese HEENT: Atraumatic, PERRLA, EOMI, Sclerae nonicteric Neck: Supple, 2+ carotid pulse no bruit, No LAD, Without JVD or thyroid abnormality Respiratory: Clear to auscultation bilaterally, Normal air movement Cardiovascular: Regular rate/rhythm, Normal S1 S2, Edema Gastrointestinal: Normal bowel sounds, No tenderness Musculoskeletal: No tenderness Integumentary: No rashes Neurological: Normal speech, Normal strength at 5/5 x4 extr, Normal tone, Normal affect - Studies Laboratory Data (last 24 hrs) 11/28/21 21:28: PT 11.9, INR 1.08, APTT 36.3 11/28/21 21:28: WBC 6.30, Hgb 9.5 L, Hct 28.7 L, Plt Count 224 11/28/21 21:28: Sodium 137, Potassium 4.1, BUN 18, Creatinine 1.30, Glucose 147 H, Total Bilirubin 0.2, AST 13 L, ALT 20, Alkaline Phosphatase 94 Assessment and Plan - Problems (Diagnosis) (1) Hypotension Current Visit: Yes Status: Acute Qualifiers: Hypotension type: unspecified hypotension type Qualified Code(s): I95.9 - Hypotension, unspecified (2) Obesity Current Visit: Yes Status: Chronic Qualifiers: Obesity type: due to excess calories Obesity classification: unspecified obesity classification (3) Chronic kidney disease, stage 3 Current Visit: Yes Status: Chronic Qualifiers: Chronic kidney disease stage 3 subtype: stage 3a (GFR 45-59) Qualified Code(s): N18.31 - Chronic kidney disease, stage 3a (4) Anemia Current Visit: Yes Status: Chronic Qualifiers: Anemia type: due to chronic kidney disease Chronic kidney disease stage: stage 3 (moderate) Chronic kidney disease stage 3 subtype: stage 3a (GFR 45- 59) Qualified Code(s): N18.31 - Chronic kidney disease, stage 3a; D63.1 - Anemia in chronic kidney disease (5) Pulmonary edema Current Visit: Yes Status: Acute Qualifiers: Chronicity: acute Qualified Code(s): J81.0 - Acute pulmonary edema - Plan -Monitor BP closely overnight. Has improved with albumin -CT negative for any spinal fractures. Likely muscle strain. Received toradol in ED with relief. Physical therapy consult. Follow up outpatient. -Will check keppra level -Restart lasix once BP tolerates -Anemia secondary to CKD3 appears stable -Monitor and replete electrolytes per protocol -Reconcile and continue home medications. HOLD antihypertensives and lasix for now. -Lovenox for VTE ppx -Full code Discharge Plan: Home Plan to discharge in: 24 Hours - Advance Directives Does patient have a Living Will: No Does patient have a Durable POA for Healthcare: No - Code Status/Comfort Care Code Status Assessed: Yes (Full) Critical Care: No Time Spent Managing Pts Care (In Minutes): 50
[2021-11-29] MEDS ORDERED: ALBUTEROL 2.5 MG/3 ML NEB SOL NEB PRN (02:32)
[2021-11-29] MEDS ORDERED: ONDANSETRON 4 MG/2 ML VIAL IV PRN (02:32)
[2021-11-29] MEDS ORDERED: ACETAMINOPHEN 500 MG TAB PO PRN (02:32)
[2021-11-29 02:54] VITALS: BMI 55.5
[2021-11-29 04:15] LABS: Absolute Lymphocytes (CBC) 1.8 K/uL (0.7-4.9); Hematocrit 28.5 % (36.0-45.0); Lymphocytes % 34.4 % (15.3-44.8); MCV 85.6 fL (80-100); RBC Red Blood Cell Count 3.33 M/uL (3.86-4.86)
[2021-11-29 04:39] LABS: Magnesium 1.6 mg/dL (1.8-2.4); Potassium 3.7 mmol/L (3.5-5.1)
[2021-11-29 04:42] LABS: Thyroid Stimulating Hormone 4.33 uIU/mL (0.360-3.740)
[2021-11-29] MEDS ORDERED: ENOXAPARIN 40 MG/0.4 ML SQ ONE (08:27)
[2021-11-29] MEDS ORDERED: ENOXAPARIN 40 MG/0.4 ML SQ SCH (09:00)
[2021-11-29 13:07] LABS: Arterial Blood Carboxyhemoglob 1.9 % (0-1.5); Blood Gas Oxyhemoglobin 90.1 % (94-97)
[2021-11-29] MEDS ORDERED: ACETAMINOPHEN 500 MG TAB ONE (15:03)
[2021-11-29 18:03] VITALS: TEMP 97.9
[2021-11-29] MEDS ORDERED: IBUPROFEN 400 MG TAB PO ONE (18:23)
--- NOTE | 2021-11-29 18:33 | P.DS ---
Admission Date: 11/28/21 Discharge Date: 11/29/21 Primary Care Provider: Aram Disposition: ROUTINE DISCHARGE Discharge Condition: FAIR Reason for Admission: Hypotension, CHF - Problems (1) Back pain Current Visit: Yes Status: Acute (2) Hypotension Current Visit: Yes Status: Acute Qualifiers: Hypotension type: unspecified hypotension type Qualified Code(s): I95.9 - Hypotension, unspecified (3) Obesity Current Visit: Yes Status: Chronic Qualifiers: Obesity type: due to excess calories Obesity classification: unspecified obesity classification (4) Bipolar disorder Current Visit: No Status: Chronic Qualifiers: Active/Remission status: remission status unspecified Qualified Code(s): F31.9 - Bipolar disorder, unspecified (5) Seizures Current Visit: No Status: Chronic Brief History of Present Illness: Patient is a 56-year-old female with history of hypertension, epilepsy, morbid obesity, chronic back pain, anxiety, and chronic kidney disease who presented to the ED with complaints of back pain. She states that she was playing with her kids today and fell and now is having severe back pain. She is also complaining of bilateral feet swelling. She was noted to be drowsy and hypotensive in ED- 77/48. She later revealed that she is prescribed lasix daily but has not been taking it because it makes her urinate too often. Head CT and abdomen pelvis CT negative. BNP 232, hgb 9.5. Chest xray showed mild pulmonary edema. She was given 500 cc bolus and 25 mg albumin in ED with improvement in BP. Orthostatic vitals negative. Observation for further management. Hospital Course: Patient troponin was negative. Her blood pressure improved during the hospital stay. She was complaining of back pain and requested for ibuprofen which was given. She also reported she wakes up at night in a panic attack. I suspect patient has obstructive sleep apnea that need to be evaluated. Patient informed to follow-up with Dr. House for arrangement for sleep study. Arterial blood gas done showed no significant CO2 retention. Patient blood pressure has improved and deemed stable for discharge. Vital Signs/Physical Exam: Temp Pulse Resp BP Pulse Ox 97.9 F 105 H 18 182/83 H 94 11/29/21 18:02 11/29/21 18:02 11/29/21 18:02 11/29/21 18:02 11/29/21 18:02 General: Alert, In no apparent distress, Oriented x3, Obese HEENT: Mucous membr. moist/pink Neck: JVD not distended Respiratory: Clear to auscultation bilaterally, Normal air movement Cardiovascular: No edema, Regular rate/rhythm, Normal S1 S2, No murmurs Gastrointestinal: Normal bowel sounds, Soft and benign, Non-distended, No tenderness Musculoskeletal: No swelling Integumentary: No rashes Neurological: Normal strength at 5/5 x4 extr, Cranial nerves 3-12 intact Laboratory Data at Discharge: WBC 5.10 K/uL (4.3-10.9) 11/29/21 03:56 Hgb 9.4 g/dL (12.0-15.0) L 11/29/21 03:56 Hct 28.5 % (36.0-45.0) L 11/29/21 03:56 Plt Count 165 K/uL (152-406) D 11/29/21 03:56 PT 11.9 SECONDS (9.5-12.5) 11/28/21 21:28 INR 1.08 11/28/21 21:28 APTT 36.3 SECONDS (24.3-36.9) 11/28/21 21:28 Sodium 139 mmol/L (136-145) 11/29/21 03:56 Potassium 3.7 mmol/L (3.5-5.1) 11/29/21 03:56 BUN 18 mg/dL (7-18) 11/29/21 03:56 Creatinine 1.30 mg/dL (0.55-1.3) 11/29/21 03:56 Glucose 122 mg/dL (74-106) H 11/29/21 03:56 Magnesium 1.6 mg/dL (1.8-2.4) L 11/29/21 03:56 Total Bilirubin 0.2 mg/dL (0.2-1.0) 11/28/21 21:28 AST 13 U/L (15-37) L 11/28/21 21:28 ALT 20 U/L (12-78) 11/28/21 21:28 Alkaline Phosphatase 94 U/L (45-117) 11/28/21 21:28 Triglycerides 202 mg/dL (<150) H 11/29/21 03:56 Cholesterol 111 mg/dL (<200) 11/29/21 03:56 HDL Cholesterol 37 mg/dL (40-60) L 11/29/21 03:56 Cholesterol/HDL Ratio 3.00 11/29/21 03:56 Home Medications: Atorvastatin Calcium 20 tab PO DAILY 07/04/19 Propranolol [Inderal*] 10 mg PO TID 07/04/19 Quetiapine Fumarate [Seroquel] 200 tab BID 07/04/19 Tizanidine [Zanaflex*] 4 tab PO BID PRN 07/04/19 Divalproex Sodium [Depakote] 500 mg PO BID 07/11/20 Alprazolam [Xanax] 1 mg PO DAILY PRN 10/28/21 Duloxetine HCl [Cymbalta] 60 mg PO DAILY 10/28/21 levETIRAcetam [Keppra*] 1 tab PO BID 10/28/21 Furosemide [Lasix*] 20 mg PO DAILY #30 tab 10/29/21 Zolpidem Tartrate 10 mg PO PRN PRN 11/29/21 Diet: AHA Activity: Ad napoleon Followup: Unknown,U [Primary Care Provider] -
[2021-11-29] MEDS ORDERED: IBUPROFEN 200 MG TAB PO ONE (18:54)
[2021-12-01 05:19] VITALS: BP 94/58; O2SAT 96
--- NOTE | 2021-12-02 17:31 | EKG ---
Test Date: 2021-11-28 Test Time: 21:23:23 Automatic Profile Shaper Operator: MEASUREMENT RESULTS: Intervals: Rate: 84 [place]: 146 QRSD: 80 QT: 390 QTc: 460 [place]: P: 51 [place]: 146 QRS: 17 T: 30 INTERPRETIVE STATEMENTS: Normal sinus rhythm Normal ECG Compared to ECG 10/28/2021 09:01:45 No significant changes Electronically Signed On 12-02-21 17:28:34 CDT by [place]
== END 2021-11-29 20:42 | disposition home or self-care (01) ==
LOC: ER 20:17 → ERHOLD 23:45 → 4TH 11-29 17:20
PROVIDERS: ADMIT Internal Medicine; ATTEND Internal Medicine
DX: I95.9 Hypotension, unspecified (principal); N18.9 Chronic kidney disease, unspecified; I50.43 Acute on chronic combined systolic (congestive) and diastolic (congestive) heart failure; I13.0 Hypertensive heart and chronic kidney disease with heart failure and stage 1 through stage 4 chronic kidney disease, or unspecified chronic kidney disease; R56.9 Unspecified convulsions; T50.1X6A Underdosing of loop [high-ceiling] diuretics, initial encounter; Z91.128 Patient's intentional underdosing of medication regimen for other reason; E66.9 Obesity, unspecified; F31.9 Bipolar disorder, unspecified; I10 Essential (primary) hypertension; F41.9 Anxiety disorder, unspecified; M54.9 Dorsalgia, unspecified; Z20.822 Contact with and (suspected) exposure to COVID-19; Y63.6 Underdosing and nonadministration of necessary drug, medicament or biological substance
CPT/HCPCS: 96361; 93005; 85025 ×2; 80048 ×2; 36415; 80320; 83735; 85610; 80329; 80061; 80076; 80164; 85730; 84443; 84484; 84439; 80177; 83880; 80307; 70450; 74176; 71045; 97161; 97530; 82805; 96375; 96372; 96374; 99291; 99292; 87811; J2310; J1650; P9047; J7040; G0378 ×2

== ENCOUNTER 2022-01-17 20:03 | Emergency (ER) | payer OTHER ==
--- OUTSIDE RECORDS SUMMARY | 2022-01-17 20:13 | XMS REPORT | Continuity of Care Document ---
:1965 Author Organization [facility] t Address [address] [place] [address] Care Team Providers Name Role Phone PCP, PATIENT DOES NOT HAVE A Primary Care Physician UnavailJARAD Arteaga Attending Clinician Unavailable JARAD LÓPEZ Attending Clinician Unavailable Doctor Unassigned, [place] Attending Clinician Unavailable RAAD UREÑA Attending Clinician Unavailable Raad Ureña MD Attending Clinician CHRIS SPENCE Attending Clinician Unavailable ILIANA RUIZ Attending Clinician Unavailable Iliana Ruiz MD Attending Clinician Deloris Escobar Attending Clinician [phone] Shelly Taveras Attending Clinician Unavailable Antonietta Garcia Attending Clinician Unavailable Sarika Michael Attending Clinician Unavailable Gail Morse Attending Clinician ILIANA RUIZ Admitting Clinician Unavailable Deloris Escobar Unavailable [phone] Payers Payer Name Policy Type Policy Number Effective Date Expiration Date S avery [facility] [employer] [id number] 2021 (MEDICARE 00:00:00 REPLACEMENT HMO) [facility] [id number] 2016 MEDICAID 00:00:00 [facility] DUAL [id number] 2020 COMP HMO D SNP 00:00:00 Problems Condition Condition Condition Status Onset Resolution Last Treating Co mments Source Name Details Category Date Date Treatment Clinician Date ANXIETY Condition Active 2018-032019-02-14 Tricia Escobar DISORDER, 04-17 14:12:47 Deloris Com alxesandra UNSPECIFIE 00:00: ty D 00 Health SCHIZOAFFE [...] psychotic psychotic ICD10 features features 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 c 15:36:56 l (disorder) dependence He rmfarideh (disorder) Active Problem 07/12/2017 [facility] Group Drug Drug Problem Active 2017-07-12 Memor ia therapy therapy 15:36:56 l finding finding Ede (finding) (finding) Active Problem 07/12/2017 Medical Group Schizophre Schizophr Problem Active 2017-07-12 Memoria theo enia 15:36:56 l (disorder) (disorder) Sebastian caceres Active Problem 07/12/2017 Medical Group Seen by Seen by Problem Active 2017-07-12 Az alis 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 15:36:56 l (finding) (finding) Brooke gong Active Problem 07/12/2017 Medical Group Benzodiaze Benzodiaz Problem Resolve [id number] 2017-07-12 Memoria pine epine d 0-08 15:36:56 15:36:56 l dependence dependence 00:00: He nicki (disorder) (disorder) 00 Resolved 12/13/2016 Problem 07/12/2017 Medical Group Allergies, Adverse Reactions, Alerts Allergy Allergy Status Severity Reaction(s) Onset Inactive Treating Comm ents Source Name Type Date Date Clinician No Known DA Active U 2020-03 [facility] Drug 0-12 Allergie 00:00: s 00 NO KNOWN Drug Active Univers ALLERGIE Class ity of S [facility] Social History Social Habit Start Date Stop Date Quantity Comments Source Exposure to Not sure University of SARS-CoV-2 (event) [facility] Alcohol intake 2020-02-12 2020-02-12 University of 00:00:00 00:00:00 [facility] social history E&M 2019-02-14 2019-02-14 . mother [...] a divorce. Five kids Not homeless. City: [place] . lives with daughter Highest education level: [...] kids social history 2019-02-14 2019-02-14 reviewed today [facility] Community reviewed E&M 13:01:12 13:01:12 Health Social History 2016-12-07 2016-12-07 Levar torres 16:49:19 16:49:19 Sex Ass[birth year] At [birth year] Universit [facility] 00:00:00 00:00:00 [facility] Smoking Status Start Date Stop Date Source Current every day 2020-02-12 00:00:00 [facility] smoker Medical Branch Ex-smoker (finding) 2019-02-14 13:01:12 2019-02-14 13:01:12 [facility] Medications Ordered Filled Start Stop Current Ordering Indication Dosage Frequency Signature Comments Components Source Medication Medication Date Date Medication? Clinician (SIG) Name Name LITHIUM 2021-03 No 300 CARBONATE 0-24 300 MG CAPS 00:00: 00 Dose 2021- No Unknown 0-24 00:00: 00 Dose 2021-1 No Unknown 0-12 00:00: 00 LISINOPRIL 2021-03 No 20 MG TABS 0-12 00:00: 00 Dose 2021-0 No Unknown 9-09 00:00: 00 TAKE 1 2021-0 No 82 STRIP THREE 9-05 TIMES A DAY 00:00: 00 Dose 2021-0 No Unknown 8-22 00:00: 00 Dose 2021-0 No Unknown 8-22 00:00: 00 &lt 2022-0 No 8-15 00:00: 00 &lt 2022-0 No 8-15 00:00: 00 &lt 2022-0 No 10 8-12 00:00: 00 ZOLPIDEM 2021-0 No TARTRATE 10 8-12 MG TABS 00:00: 00 &lt 2022-0 No 8-11 00:00: 00 Dose 2021-0 No Unknown 8-11 00:00: 00 Dose 2021-0 No 200 Unknown 8-11 00:00: 00 &lt 2-0 No 10 8-11 00:00: 00 TAKE 1 2021-0 No 1 TABLET (1 8-11 MG TOTAL) 00:00: BY MOUTH 1 00 (ONE) TIME EACH DAY IF NEEDED FOR ANXIETY &lt 2-0 No 8-11 00:00: 00 &lt 2-0 No 60 8-11 00:00: 00 &lt 2022-0 No 10-16 00:00: 00 Dose 2022-0 No Unknown 10-16 00:00: 00 Dose 2022-0 No 200 Unknown 10-16 00:00: 00 &lt 2022-0 No 10 10-16 00:00: 00 TAKE 1 2022-0 No 1 TABLET (1 8-11 MG TOTAL) 00:00: BY MOUTH 1 00 (ONE) TIME EACH DAY IF NEEDED FOR ANXIETY &lt 2022-0 No 10-16 00:00: 00 &lt 2022-0 No 60 10-16 00:00: 00 TAKE 1 2022-0 No 4 TABLET BY 8-10 MOUTH TWICE 00:00: A DAY 00 NEEDED FOR MUSCLE SPASMS TAKE 1 2022-0 No 4 TABLET BY 8-10 MOUTH TWICE 00:00: A DAY 00 NEEDED FOR MUSCLE SPASMS TAKE 1 2022-0 No 60 CAPSULE BY 8-09 MOUTH EVERY 00:00: DAY FOR 00 DEPRESSION. DO NOT CRUSH OR CHEW TAKE 1 2022-0 No 60 CAPSULE BY 8-09 MOUTH EVERY 00:00: DAY FOR 00 DEPRESSION. DO NOT CRUSH OR CHEW Suboxone 8 2021-0 No 1mg mg-2 mg 8- sublingual 00:00: film 00 &lt 2022-0 No 300 10-07 00:00: 00 TAKE 1 2022-0 No 100 TABLET BY 8-02 MOUTH AT 00:00: BEDTIME FOR 00 INSOMNIA Dose 2022-0 No 200 Unknown 10-07 00:00: 00 TAKE 1 2-0 No 1 TABLET (1 8-02 MG TOTAL) 00:00: BY MOUTH 2 00 (TWO) TIMES A DAY IF NEEDED FOR ANXIETY Dose 2022-0 No Unknown 10-07 00:00: 00 TAKE 1 2022-0 No 10 TABLET BY 8- MOUTH AT 00:00: NIGHT IF 00 NEEDED FOR SLEEP. &lt 2022-0 No 500 10-07 00:00: 00 &lt 2022-0 No 20 10-07 00:00: 00 Suboxone 8 2021-0 No 1mg mg-2 mg 8- sublingual 00:00: film 00 &lt 2022-0 No 300 10-07 00:00: 00 TAKE 1 2022-0 No 100 TABLET BY 8-02 MOUTH AT 00:00: BEDTIME FOR 00 INSOMNIA Dose 2022-0 No 200 Unknown 10-07 00:00: 00 TAKE 1 2022-0 No 1 TABLET (1 8-02 MG TOTAL) 00:00: BY MOUTH 2 00 (TWO) TIMES A DAY IF NEEDED FOR ANXIETY Dose 2022-0 No Unknown 10-07 00:00: 00 TAKE 1 2022-0 No 10 TABLET BY 8 MOUTH AT 00:00: NIGHT IF 00 NEEDED FOR SLEEP. &lt 2022-0 No 500 10-07 00:00: 00 &lt 2022-0 No 20 10-07 00:00: 00 &lt 2022-0 No 1 10-06 00:00: 00 &lt 2022-0 No 1 10-06 00:00: 00 TAKE 1 2-0 No 100 TABLET BY 7 MOUTH 3 00:00: TIMES A 00 DAY. &lt 2022-0 No 10 09-30 00:00: 00 TAKE 1 2022-0 No 4 TABLET BY 7-26 MOUTH TWICE 00:00: A DAY 00 NEEDED FOR MUSCLE SPASM &lt 2022-0 No 7 00:00: 00 &lt 2022-0 No 60 09-30 00:00: 00 TAKE 1 2-0 No 100 TABLET BY 7 MOUTH 3 00:00: TIMES A 00 DAY. &lt 2022-0 No 10 09-30 00:00: 00 TAKE 1 2-0 No 4 TABLET BY 7-26 MOUTH TWICE 00:00: A DAY 00 NEEDED FOR MUSCLE SPASM &lt 2022-0 No 7 00:00: 00 &lt 2022-0 No 60 09-30 00:00: 00 &lt 2022-0 No 500 09-16 00:00: 00 Dose 2022-0 No Unknown 09-16 00:00: 00 TAKE ONE 2022-0 No 25 CAPSULE BY 7-12 MOUTH EVERY 00:00: 6 HOURS 00 NEEDED FOR ALLERGIES OR ANXIETY &lt 2022-0 No 500 09-16 00:00: 00 Dose 2022-0 No Unknown 09-16 00:00: 00 TAKE ONE 2022-0 No 25 CAPSULE BY 7-12 MOUTH EVERY 00:00: 6 HOURS 00 NEEDED FOR ALLERGIES OR ANXIETY Suboxone 8 2021-0 No 1mg mg-2 mg 6-28 sublingual 00:00: film 00 &lt 2022-0 No 6-28 00:00: 00 Dose 2022-0 No Unknown 6-28 00:00: 00 &lt 2022-0 No 6-28 00:00: 00 RINSE WITH 2022-0 No 1 CAPFUL 6-28 TWICE A DAY 00:00: SPIT DO NOT 00 SWALLOW Suboxone 8 2-0 No 1mg mg-2 mg 6-28 sublingual 00:00: film 00 &lt 2022-0 No 6-28 00:00: 00 Dose 2022-0 No Unknown 6-28 00:00: 00 &lt 2022-0 No 6-28 00:00: 00 RINSE WITH 2022-0 No 1 CAPFUL 6-28 TWICE A DAY 00:00: SPIT DO NOT 00 SWALLOW SPRAY 2 2-0 No SPRAYS INTO 6-05 EACH 00:00: NOSTRIL 00 EVERY DAY SPRAY 2 2-0 No SPRAYS INTO 6-05 EACH 00:00: NOSTRIL 00 EVERY DAY Suboxone 8 2021-0 No 1mg mg-2 mg 5-31 sublingual 00:00: film 00 TAKE 1 2-0 No TABLET BY 5-31 MOUTH EVERY 00:00: DAY AT 00 NIGHT &lt 2022-0 No 5-31 00:00: 00 &lt 2022-0 No 5-31 00:00: 00 &lt 2022-0 No 5-31 00:00: 00 Suboxone 8 2-0 No 1mg mg-2 mg 5-31 sublingual 00:00: film 00 TAKE 1 2-0 No TABLET BY 5-31 MOUTH EVERY 00:00: DAY AT 00 NIGHT &lt 2022-0 No 5-31 00:00: 00 &lt 2022-0 No 5-31 00:00: 00 &lt 2022-0 No 5-31 00:00: 00 Suboxone 8 2-0 No 1mg mg-2 mg 4-12 sublingual 00:00: film 00 Suboxone 8 2-0 No 1mg mg-2 mg 4-12 sublingual 00:00: film 00 Dose 2022-0 No Unknown 3-10 00:00: 00 Dose 2022-0 No Unknown 3-10 00:00: 00 Dose 2022-0 [...] 2022-0 No Unknown 2-18 00:00: 00 Dose 2-0 No Unknown 2-18 00:00: 00 Dose 2022-0 No Unknown 2-18 00:00: 00 Dose 2022-0 No Unknown 2-18 00:00: 00 Dose 2022-0 No Unknown 2-18 00:00: 00 Dose 2-0 No Unknown 2-18 00:00: 00 Dose 2022-0 [...] 2-17 00:00: 00 Dose 2022-0 No Unknown 2-17 00:00: 00 Dose 2022-0 No Unknown 1-19 00:00: 00 Dose 2022-0 No Unknown 1-19 00:00: 00 Suboxone 8 2020- No 1mg mg-2 mg 2-16 sublingual 00:00: film 00 Suboxone 8 2020- No 1mg mg-2 mg 2-16 sublingual 00:00: film 00 Suboxone 8 2020- No 1mg mg-2 mg 1-16 sublingual 00:00: film 00 Suboxone 8 2020-1 No 1mg mg-2 mg 1-16 sublingual 00:00: film 00 Suboxone 8 1-1 No 1mg mg-2 mg 0-21 sublingual 00:00: film 00 Suboxone 8 1-1 No 1mg mg-2 mg 0-21 sublingual 00:00: film 00 Dose 2021-0 No Unknown 9-21 00:00: 00 Suboxone 8 1-0 No 1mg mg-2 mg 9-21 sublingual 00:00: film 00 Dose 2021-0 No Unknown 9-21 00:00: 00 Suboxone 8 1-0 No 1mg mg-2 mg 9-21 sublingual 00:00: film 00 hydroxyzine 2021-0 No 12mg HCl 50 mg 8-20 tablet 00:00: 00 divalproex 2021-0 No 1mg 500 mg 8-20 tablet,vazquez 00:00: yed release 00 propranolol 2021-0 No 1mg 10 mg 8-20 tablet 00:00: 00 quetiapine 2021-0 No 1mg 200 mg 8-20 tablet 00:00: 00 Latuda 60 2021-0 No 1mg mg tablet 8-20 00:00: 00 Cymbalta 60 2021-0 No 1mg mg 8-20 capsule,del 00:00: ayed 00 release lithium 2021-0 No 3mg carbonate 8-20 300 mg 00:00: capsule 00 hydroxyzine 2021-0 No 12mg HCl 50 mg 8-20 tablet 00:00: 00 divalproex 2021-0 No 1mg 500 mg 8-20 tablet,vazquez 00:00: yed release 00 propranolol 2021-0 No 1mg 10 mg 8-20 tablet 00:00: 00 quetiapine 2021-0 No 1mg 200 mg 8-20 tablet 00:00: 00 Latuda 60 2021-0 No 1mg mg tablet 8-20 00:00: 00 Cymbalta 60 2021-0 No 1mg mg 8-20 capsule,del 00:00: ayed 00 release lithium 2021-0 No 3mg carbonate 8-20 300 mg 00:00: capsule 00 alprazolam 2021-0 No mg 1 mg tablet 8 00:00: 00 alprazolam 2021-0 No 1mg 1 mg tablet 8-13 00:00: 00 alprazolam 1-0 No mg 1 mg tablet 10-18 00:00: 00 alprazolam 1-0 No 1mg 1 mg tablet 10-18 00:00: 00 Suboxone 8 1-0 No 1mg mg-2 mg 8-11 sublingual 00:00: film 00 Suboxone 8 1-0 No 1mg mg-2 mg 8-11 sublingual 00:00: film 00 Suboxone 8 1-0 No 1mg mg-2 mg 7-14 sublingual 00:00: film 00 Suboxone 8 2020-0 No 1mg mg-2 mg 7-14 sublingual 00:00: film 00 Vitamin D3 1-0 No 1(1,000 25 mcg 7-13 unit) (1,000 00:00: unit) 00 chewable tablet Vitamin D3 1-0 No 1(1,000 25 mcg 7-13 unit) (1,000 00:00: unit) 00 chewable tablet lithium 2020-0 No 1mg carbonate 09-13 300 mg 00:00: capsule 00 ProAir HFA 2020-0 No 2mcg/ac 90 09-13 tuation mcg/actuati 00:00: on aerosol 00 inhaler lisinopril 1-0 No 1mg 20 mg - tablet 00:00: 00 aspirin 81 1-0 No 1mg mg - tablet,vazquez 00:00: yed release 00 atorvastati 1-0 No 1mg n 20 mg - tablet 00:00: 00 folic acid 1-0 No 1mg 1 mg tablet 09-13 00:00: 00 divalproex 1-0 No 1mg 500 mg - tablet,vazquez 00:00: yed release 00 ropinirole 1-0 No 1mg 2 mg tablet 09-13 00:00: 00 Keppra 500 1-0 No 1mg mg tablet 09-13 00:00: 00 propranolol 2021-0 No 1mg 10 mg - tablet 00:00: 00 hydroxyzine 2021-0 No 1mg HCl 50 mg - tablet 00:00: 00 quetiapine 2021-0 No 1mg 200 mg - tablet 00:00: 00 quetiapine 2021-0 No 1mg 50 mg 7-09 tablet 00:00: 00 Latuda 60 2021-0 No 1mg mg tablet 09-13 00:00: 00 Cymbalta 60 2021-0 No 1mg mg - capsule,del 00:00: ayed 00 release lithium 1-0 No 1mg carbonate 09-13 300 mg 00:00: capsule 00 ProAir HFA 1-0 No 2mcg/ac 90 09-13 tuation mcg/actuati 00:00: on aerosol 00 inhaler lisinopril 2021-0 No 1mg 20 mg - tablet 00:00: 00 aspirin 81 2021-0 No 1mg mg 09-13 tablet,vazquez 00:00: yed release 00 atorvastati 1-0 No 1mg n 20 mg 09-13 tablet 00:00: 00 folic acid 1-0 No 1mg 1 mg tablet 09-13 00:00: 00 divalproex 2021-0 No 1mg 500 mg 09-13 tablet,vazquez 00:00: yed release 00 ropinirole 2021-0 No 1mg 2 mg tablet 09-13 00:00: 00 Keppra 500 1-0 No 1mg mg tablet 09-13 00:00: 00 propranolol 2021-0 No 1mg 10 mg - tablet 00:00: 00 hydroxyzine 2021-0 No 1mg HCl 50 mg 09-13 tablet 00:00: 00 quetiapine 2021-0 No 1mg 200 mg 09-13 tablet 00:00: 00 quetiapine 2021-0 No 1mg 50 mg - tablet 00:00: 00 Latuda 60 2021-0 No 1mg mg tablet 09-13 00:00: 00 Cymbalta 60 2021-0 No 1mg mg - capsule,del 00:00: ayed 00 release Suboxone 8 2021-0 No 1mg mg-2 mg 6-16 sublingual 00:00: film 00 Suboxone 8 2021-0 No 1mg mg-2 mg 6-16 sublingual 00:00: film 00 aspirin 81 2021-0 No 1mg mg 5- tablet,vazquez 00:00: yed release 00 ropinirole 2021-0 No 1mg 2 mg tablet 07-24 00:00: 00 Keppra 500 2021-0 No 1mg [...] 5-19 capsule,del 00:00: ayed 00 release lithium 2021-0 No 1mg carbonate 5-19 300 mg 00:00: capsule 00 aspirin 81 2021-0 No 1mg mg 5-19 tablet,vazquez 00:00: yed [...] 5-19 capsule,del 00:00: ayed 00 release lithium 2021-0 No 1mg carbonate 5-19 300 mg 00:00: [...] 1mg 1 mg tablet 4-22 00:00: 00 atorvastati 2021-0 No 1mg n 20 [...] mg tablet 4-22 00:00: 00 ProAir HFA 1-0 No 2mcg/ac 90 4-21 tuation mcg/actuati 00:00: on aerosol 00 inhaler Advair 1-0 No 2mcg/do Diskus 250 4-21 se mcg-50 00:00: mcg/dose 00 powder for inhalation atorvastati 1-0 No 1mg n 20 mg 4-21 tablet 00:00: 00 lisinopril 2021-0 No 1mg 20 mg 4-21 tablet 00:00: 00 pantoprazol 2021-0 No 1mg e 40 mg 4-21 tablet,vazquez 00:00: yed release 00 folic acid 2021-0 No 1mg 1 mg tablet 4-21 00:00: 00 propranolol 2021-0 No 1mg 20 mg 4-21 tablet 00:00: 00 Ambien 10 2021-0 No 1mg mg tablet 4-21 00:00: 00 Dose 2021-0 No Unknown 4-21 00:00: 00 Depakote 2021-0 No 1mg 500 mg 4-21 tablet,vazquez 00:00: yed release 00 thiamine 1-0 No 1mg HCl 4-21 (vitamin 00:00: B1) 100 mg 00 tablet ropinirole 1-0 No 1mg 1 mg tablet 4-21 00:00: 00 alprazolam 2021-0 No 1mg 2 mg tablet -21 00:00: 00 Flonase 1-0 No 2mcg/ac Allergy 4-21 tuation Relief 50 00:00: mcg/actuati 00 on nasal spray,suspe nsion ProAir HFA 2020-0 No 2mcg/ac 90 4-21 tuation mcg/actuati 00:00: on aerosol 00 inhaler Advair 1-0 No 2mcg/do Diskus 250 4-21 se mcg-50 00:00: mcg/dose 00 powder for inhalation atorvastati 1-0 No 1mg n 20 mg 4-21 tablet 00:00: 00 lisinopril 1-0 No 1mg 20 mg 4-21 tablet 00:00: 00 pantoprazol 1-0 No 1mg e 40 mg 4-21 tablet,vazquez 00:00: yed release 00 folic acid 1-0 No 1mg 1 mg tablet -21 00:00: 00 propranolol 1-0 No 1mg 20 mg 4-21 tablet 00:00: 00 Ambien 10 1-0 No 1mg mg tablet - 00:00: 00 Seroquel 1-0 No 1mg 200 mg 4-21 tablet 00:00: 00 Depakote 1-0 No 1mg 500 mg 4-21 tablet,vazquez 00:00: yed release 00 thiamine 2020-0 No 1mg HCl 4-21 (vitamin 00:00: B1) 100 mg 00 tablet ropinirole 2020-0 No 1mg 1 mg tablet - 00:00: 00 alprazolam 2020-0 No 1mg 2 mg tablet -21 00:00: 00 Flonase 2020-0 No 2mcg/ac Allergy -21 tuation Relief 50 00:00: mcg/actuati 00 on nasal spray,suspe nsion sertraline 2020-0 No 1mg 100 mg 4-13 tablet 00:00: 00 loratadine- 1-0 No 1mg pseudoephed -13 rine ER 10 00:00: mg-240 mg 00 tablet,exte nded [id number] sertraline 1-0 No 2mg 100 mg 4-13 tablet 00:00: 00 sulfamethox 1-0 No 1mg azole 800 4-13 mg-trimetho 00:00: prim 160 mg 00 tablet hydroxyzine 1-0 No 1mg HCl 50 mg 4-13 tablet 00:00: 00 Suboxone 8 1-0 No 1mg mg-2 mg 4-13 sublingual 00:00: film 00 tizanidine 2021-0 No 1mg 4 mg 4-13 capsule 00:00: 00 tizanidine 2021-0 No 1mg 4 mg 4-13 capsule 00:00: 00 sertraline 2021-0 No 1mg 100 mg 4-13 tablet 00:00: 00 loratadine- 1-0 No 1mg pseudoephed 4-13 rine ER 10 00:00: mg-240 mg 00 tablet,exte nded [id number] sertraline 1-0 No 2mg 100 mg 4-13 tablet 00:00: 00 sulfamethox 1-0 No 1mg azole 800 4-13 mg-trimetho 00:00: prim 160 mg 00 tablet hydroxyzine 1-0 No 1mg HCl 50 mg 4-13 tablet 00:00: 00 Suboxone 8 1-0 No 1mg mg-2 mg 4-13 sublingual 00:00: film tizanidine 1-0 No 1mg 4 mg 4-13 capsule 00:00: 00 tizanidine 2021-0 No 1mg 4 mg 4-13 capsule 00:00: 00 sertraline 2021-0 No 1mg 100 mg 3-10 tablet 00:00: 00 sertraline 2021-0 No 1mg 100 mg 3-10 tablet 00:00: 00 Suboxone 8 1-0 No 1mg mg-2 mg 3-10 sublingual 00:00: film sertraline 2021-0 No 1mg 100 mg 3-10 tablet 00:00: 00 Suboxone 8 1-0 No 1mg mg-2 mg 3-10 sublingual 00:00: film 00 sertraline 2021-0 No 1mg 100 mg 3-10 tablet 00:00: 00 Suboxone 8 1-0 No 1mg mg-2 mg 3-10 sublingual 00:00: film 00 Suboxone 8 1-0 No 1mg mg-2 mg 3-10 sublingual 00:00: film tizanidine 2021-0 No 1mg 4 mg 3-10 capsule 00:00: 00 tizanidine 2021-0 No 1mg 4 mg 3-10 capsule 00:00: 00 tizanidine 2021-0 No 1mg 4 mg 3-10 capsule 00:00: 00 tizanidine 2021-0 No 1mg 4 mg 3-10 capsule 00:00: 00 Ambien 10 2021-0 No 1mg mg tablet 3- 00:00: 00 Ambien 10 2021-0 No 1mg mg tablet 3- 00:00: 00 Ambien 10 2021-0 No 1mg mg tablet 3- 00:00: 00 Ambien 10 2021-0 No 1mg mg tablet 3- 00:00: 00 sertraline 2021-0 No 1mg 100 mg 2-10 tablet 00:00: 00 Suboxone 8 1-0 No 1mg mg-2 mg 2-10 sublingual 00:00: film 00 tizanidine 1-0 No 1mg 4 mg 2-10 capsule 00:00: 00 sertraline 2021-0 No 1mg 100 mg 2-10 tablet 00:00: 00 Suboxone 8 1-0 No 1mg mg-2 mg 2-10 sublingual 00:00: film tizanidine 1-0 No 1mg 4 mg 2-10 capsule 00:00: 00 Suboxone 8 2020-0 No 1mg mg-2 mg 1-19 sublingual 00:00: film 00 Suboxone 8 2020-0 No 1mg mg-2 mg 1-19 sublingual 00:00: film 00 Suboxone 8 2019-1 No 1mg mg-2 mg 2-17 sublingual 00:00: film 00 Suboxone 8 2019-1 No 1mg mg-2 mg 2-17 sublingual 00:00: film 00 NaCl 0.9% 2019- Yes 1000mL at 999 Univ ers (NS) IV 2-08 mL/hr, ity of infusion 04:00: Intravenou Jean Marie as 1,000 mL 00 s, Medical CONTINUOUS Branch , Starting 02/12/20 at 2200, Until Discontinu ed, Routine Suboxone 8 2019- No 1mg mg-2 mg 1-10 sublingual 00:00: film 00 Suboxone 8 2019- No 1mg mg-2 mg 1-10 sublingual 00:00: film 00 amoxicillin 2020-1 No 1mg 875 0-07 mg-potassiu 00:00: m 00 clavulanate 125 mg tablet Suboxone 8 2020-1 No 1mg mg-2 mg 0-07 sublingual 00:00: film 00 benzonatate 2020-1 No 1mg 200 mg 0-07 capsule 00:00: 00 amoxicillin 2020-1 No 1mg 875 0-07 mg-potassiu 00:00: m 00 clavulanate 125 mg tablet Suboxone 8 2020-1 No 1mg mg-2 mg 0-07 sublingual 00:00: film 00 benzonatate 2020-1 No 1mg 200 mg 0-07 capsule 00:00: [...] mg 3-19 sublingual 00:00: film 00 Suboxone 8 2020-0 No 1mg mg-2 mg 3-19 sublingual 00:00: film 00 Suboxone 12 2020-0 No 1mg mg-3 mg 3-18 sublingual 00:00: film 00 Suboxone 12 2020-0 No 1mg mg-3 mg 3-18 sublingual 00:00: film 00 Narcan 4 2020-0 No 1(50 mg mg/actuatio 2-03 iron) n nasal 00:00: spray 00 Suboxone 4 2020-0 No 1mg mg-1 mg 2-03 sublingual 00:00: film 00 Narcan 4 2020-0 No 1(50 mg mg/actuatio 2-03 iron) n nasal 00:00: spray 00 Suboxone 4 2020-0 No 1mg mg-1 mg 2-03 sublingual 00:00: film 00 Ambien 10 2020-0 No 1mg mg tablet 1-31 00:00: 00 alprazolam 2020-0 No 1mg 1 mg tablet 1-31 00:00: 00 tizanidine 2019-0 No 1mg 4 mg 1-31 capsule 00:00: 00 ProAir HFA 2020-0 No 1mcg/ac 90 1-31 tuation mcg/actuati 00:00: on aerosol 00 inhaler ProAir HFA 2020-0 No 1mcg/ac 90 -31 tuation mcg/actuati 00:00: on aerosol 00 inhaler atorvastati 2020-0 No 1mg n 20 mg 1-31 tablet 00:00: 00 lisinopril 2020-0 No 1mg 20 mg 1-31 tablet 00:00: 00 pantoprazol 2020-0 No 1mg e 40 mg 1-31 tablet,vazquez 00:00: yed release 00 Seroquel 2020-0 No 1mg 100 mg 1-31 tablet 00:00: 00 ropinirole 2020-0 No 1mg 2 mg tablet -31 00:00: 00 propranolol 2020-0 No 1mg 20 mg 1-31 tablet 00:00: 00 Ambien 10 2020-0 No 1mg mg tablet 04-07 00:00: 00 atorvastati 2020-0 No 1mg n 20 mg 1-31 tablet 00:00: 00 alprazolam 2020-0 No 1mg 1 mg tablet 1-31 00:00: 00 tizanidine 2020-0 No 1mg 4 mg 1-31 capsule 00:00: 00 lisinopril 2020-0 No 1mg 20 mg 1-31 tablet 00:00: 00 pantoprazol 2020-0 No 1mg e 40 mg 1-31 tablet,vazquez 00:00: yed release 00 Seroquel 2020-0 No 1mg 100 mg 1-31 tablet 00:00: 00 ropinirole 2020-0 No 1mg 2 mg tablet 04-07 00:00: 00 propranolol 2020-0 No 1mg 20 mg 1-31 tablet 00:00: 00 (ALPRAZOLAM 2019- Yes 1/2 tablet [facility] ) 1 MG TABS 2-10 am, 1 Communi 00:00: tablet ty 00 noon, 1/2 Health tablet night (SERTRALINE 2018- Yes Deloris one By [facility] HCL) 50 MG 2-10 [facility] TABS 00:00: Every ty 00 Morning Health for one week then increase to two tablets daily (QUETIAPINE 2018- Yes one By Marie cy FUMARATE) 2-10 Mouth take Comm uni 200 MG TABS 00:00: at bedtime [address] lisinopril 2017-0 Yes TAKE 1 Unive rs 10 mg 3-20 TABLET ity of tablet 00:00: EVERY DAY [facility] lisinopril 2017-0 Yes TAKE 1 Unive rs 10 mg 3-20 TABLET ity of tablet 00:00: EVERY DAY [facility] lisinopril 2017-0 Yes TAKE 1 Unive rs 10 mg 3-20 TABLET ity of tablet 00:00: EVERY DAY [facility] lisinopril 2017-0 Yes TAKE 1 Unive rs 10 mg 3-20 TABLET ity of tablet 00:00: EVERY DAY [facility] omeprazole 2017-0 Yes TAKE 1 Unive rs 40 mg 2-21 CAPSULE ity of capsule 00:00: EVERY DAY [facility] omeprazole 2017-0 Yes TAKE 1 Unive rs 40 mg 2-21 CAPSULE ity of capsule 00:00: EVERY DAY [facility] omeprazole 2017-0 Yes TAKE 1 Unive rs 40 mg 2-21 CAPSULE ity of capsule 00:00: EVERY DAY [facility] omeprazole 2017-0 Yes TAKE 1 Unive rs 40 mg 2-21 CAPSULE ity of capsule 00:00: EVERY DAY [facility] ibuprofen 2017-0 Yes TAKE 1 Univer s 800 mg 1-25 TABLET BY ity of tablet 00:00: MOUTH [place] TWICE A Medical DAY WITH Branch FOOD ibuprofen 2017-0 Yes TAKE 1 Univer s 800 mg 1-25 TABLET BY ity of tablet 00:00: MOUTH [place] TWICE A Medical DAY WITH Branch FOOD ibuprofen 2017-0 Yes TAKE 1 Univer s 800 mg 1-25 TABLET BY [facility] tablet 00:00: MOUTH [place] TWICE A [facility] DAY WITH [facility] FOOD ibuprofen 2017-0 Yes TAKE 1 [facility] 800 mg 1-25 TABLET BY [facility] of tablet 00:00: MOUTH [place] TWICE A Medical DAY WITH [facility] FOOD [...] 2 0-17 [facility] mg tablet 00:00: [place] [facility] zolpidem 2014-03 Yes [facility] (AMBIEN) 10 0-17 ity of mg tablet 00:00: [place] [facility] ALPRAZolam 2014-03 Yes [facility] (XANAX) 2 0-17 it[facility] mg tablet 00:00: [facility] zolpidem 2014-03 Yes [facility] (AMBIEN) 10 0-17 [facility] mg tablet 00:00: [facility] ALPRAZolam 2014-03 Yes [facility] (XANAX) 2 0-17 ity of mg tablet 00:00: [facility] zolpidem 2014-03 Yes [facility] (AMBIEN) 10 0-17 ity of mg tablet 00:00: [facility] ALPRAZolam 2014-03 Yes [facility] (XANAX) 2 0-17 ity of mg tablet 00:00: [facility] zolpidem 2014-03 Yes [facility] (AMBIEN) 10 0-17 ity of mg tablet 00:00: [facility] INVEGA 3 mg Yes [facility] 24 hr 8-21 ity of tablet 00:00: [facility] INVEGA 3 mg Yes [facility] 24 hr 8-21 ity of tablet 00:00: [facility] INVEGA 3 mg Yes [facility] 24 hr 8-21 ity of tablet 00:00: [facility] INVEGA 3 mg Yes [facility] 24 hr 8-21 ity of tablet 00:00: [facility] VENLAFAXINE Yes 1 Cap Oral [facility] 150 MG ORAL 3-16 QAM WITH [facility] of CP24 00:00: [facility] DIVALPROEX Yes 1 Tab Oral [facility] 500 MG ORAL 3-16 QAM, 2 Tab it y of TBEC 00:00: [facility] RISPERIDONE 2006-0 Yes 1 Tab Oral [facility] 2 MG ORAL 3-16 BID ity of TAB 00:00: [facility] QUETIAPINE 2006- Yes 1 Tab Oral [facility] 200 MG ORAL 3-16 QHS ity of TAB 00:00: [facility] VENLAFAXINE Yes 1 Cap Oral [facility] 150 MG ORAL 3-16 QAM WITH [facility]y of CP24 00:00: [facility] DIVALPROEX 0 Yes 1 Tab Oral [facility] 500 MG ORAL 3-16 QAM, 2 Tab it y of TBEC 00:00: [facility] RISPERIDONE 2007-0 Yes 1 Tab Oral [facility] 2 MG ORAL 3-16 BID [facility] of TAB 00:00: [facility] QUETIAPINE 2007-0 Yes 1 Tab Oral [facility] 200 MG ORAL 3-16 QHS ity of TAB 00:00: [facility] VENLAFAXINE 2007-0 Yes 1 Cap Oral [facility] 150 MG ORAL 3-16 QAM WITH [facility] of CP24 00:00: [facility] DIVALPROEX 2007-0 Yes 1 Tab Oral U nivers 500 MG ORAL 3-16 QAM, 2 Tab it y of TBEC 00:00: [facility] RISPERIDONE 2007-0 Yes 1 Tab Oral Univers 2 MG ORAL 3-16 BID ity of TAB 00:00: [facility] QUETIAPINE 2007-0 Yes 1 Tab Oral U nivers 200 MG ORAL 3-16 QHS ity of TAB 00:00: [facility] VENLAFAXINE 2007-0 Yes 1 Cap Oral Univers 150 MG ORAL 3-16 QAM WITH ity of CP24 00:00: BREAKFAST [facility] DIVALPROEX 2007-0 Yes 1 Tab Oral U nivers 500 MG ORAL 3-16 QAM, 2 Tab it y of TBEC 00:00: Oral [facility] RISPERIDONE 2007-0 Yes 1 Tab Oral Univers 2 MG ORAL 3-16 BID ity of TAB 00:00: [facility] QUETIAPINE 2007-0 Yes 1 Tab Oral U nivers 200 MG ORAL 3-16 QHS ity of TAB 00:00: [place] [address] Medical [place] Vital Signs Vital Name Observation Time Observation Value Comments Source Systolic blood 2020-02-13 05:00:00 145 mm[Hg] Univer sity of [facility] Diastolic blood 2020-02-13 05:00:00 72 mm[Hg] Unive rsity of pressure [facility] Heart rate 2020-02-13 05:00:00 92 /min [facility] Oxygen saturation in 2020-02-13 05:00:00 99 /min [facility] Arterial blood by [facility] Pulse oximetry Branch Respiratory rate 2020-02-13 04:00:00 18 /min [facility] Body temperature 2020-02-13 01:09:00 36.67 [place] [facility] Body weight 2020-02-13 01:09:00 125.646 kg Universi ty [facility] Medical [place] BMI 2020-02-13 01:09:00 46.10 kg/m2 Universi ty [facility] Systolic blood 2020-02-13 05:00:00 145 mm[Hg] Univer sity of pressure [facility] Diastolic blood 2020-02-13 05:00:00 72 mm[Hg] Unive rsity of pressure [facility] Heart rate 2020-02-13 05:00:00 92 /min Universi ty [facility] Oxygen saturation in 2020-02-13 05:00:00 99 /min [facility] Arterial blood by [facility] Pulse oximetry Branch Respiratory rate 2020-02-13 04:00:00 18 /[facility] 2020-02-13 01:09:00 36.67 [place] [facility] Body weight 2020-02-13 01:09:00 125.646 kg Universi ty [facility] BMI 2020-02-13 01:09:00 46.10 kg/m2 [facility] BP Systolic 2021-12-29 11:41:00 159 mm[Hg] BP Diastolic 2021-12-29 11:41:00 98 mm[Hg] Weight Measured 2021-12-29 11:41:00 325.60 pounds Height Measured 2021-12-29 11:41:00 65.00 inches Body Temperature 2021-12-29 11:41:00 98.30 degrees Heart Rate 2021-12-29 11:41:00 81.00 /min Respiratory Rate 2021-12-29 11:41:00 18.00 /min BP Systolic 2021-12-17 14:03:00 133 mm[Hg] BP Diastolic 2021-12-17 14:03:00 86 mm[Hg] Weight Measured 2021-12-17 14:03:00 319.20 pounds Height Measured 2021-12-17 14:03:00 65.00 inches Body Temperature 2021-12-17 14:03:00 98.20 degrees Heart Rate 2021-12-17 14:03:00 83.00 /min Respiratory Rate 2021-12-17 14:03:00 17.00 /min BP Systolic 2021-11-18 09:16:00 144 mm[Hg] BP Diastolic 2021-11-18 09:16:00 101 mm[Hg] Weight Measured 2021-11-18 09:16:00 315.00 pounds Height Measured 2021-11-18 09:16:00 65.00 inches Body Temperature 2021-11-18 09:16:00 98.30 degrees Heart Rate 2021-11-18 09:16:00 70.00 /min Respiratory Rate 2021-11-18 09:16:00 BP Systolic 2021-09-02 14:31:00 117 mm[Hg] BP [...] EXTERNAL PROVIDER RECORDS 2020-10-09 05:01:00 Doctor Unassigned, [facility] [place] [facility] URINALYSIS 2020-02-13 02:27:00 Iliana Ruiz [facility] ADC / LCC - DRUG SCREEN 2020-02-13 02:27:00 Iliana Ruiz Uni [facility] CT HEAD WO CONTRAST 2020-02-13 01:56:48 Iliana Ruiz [facility] EXTRA TUBE LT. BLUE 2020-02-13 01:37:00 Iliana Ruiz [facility] EXTRA TUBE SST 2020-02-13 01:37:00 Iliana Ruiz [facility] EXTRA TUBE LT. GREEN 2020-02-13 01:37:00 Iliana Ruiz [facility] XR CHEST 1 VW 2020-02-13 01:33:14 Iliana Ruiz [facility] TROPONIN I 2020-02-13 01:32:00 Iliana Ruiz [facility] COMP. METABOLIC PANEL 2020-02-13 01:32:00 Iliana Ruiz [facility] ([id number]) [facility] SALICYLATE 2020-02-13 01:32:00 Iliana Ruiz [facility] VALPROIC ACID, TOTAL 2020-02-13 01:32:00 Iliana Ruzi [facility] ETHANOL 2020-02-13 01:32:00 Iliana Ruiz [facility] CBC WITH DIFF 2020-02-13 01:32:00 Iliana Ruiz [facility] COVID-19 (ID NOW RAPID 2020-02-13 01:32:00 Iliana Ruiz [facility] TESTING) [facility] EXTERNAL PROVIDER RECORDS 2019-10-09 05:01:00 Doctor Unassigned, [facility] Diagnostic evaluation with 2019-02-14 14:55:13 Deloris Escobar [facility] - [address] [facility] Operation 2003-03-08 00:00:00 Levar corea Cholecystectomy 2000-03-08 00:00:00 Levar corea Plan of Care Planned Activity Planned Date Details Comments Source Goal Plan of Care Note [code = 00430-9] Goal Plan of Care Note [code = 74201-5] Goal Plan of Care Note [code = 77492-8] Goal Plan of Care Note [code = 55895-3] Goal Plan of Care Note [code = 24371-6] Goal Plan of Care Note [code = 83670-6] Goal Plan of Care Note [code = 80589-4] Goal Plan of Care Note [code = 29179-8] Goal Plan of Care Note [code = 80443-1] Goal Plan of Care Note [code = 86618-0] Goal Plan of Care Note [code = 23487-3] Goal Plan of Care Note [code = 06799-8] Goal Plan of Care Note [code = 40757-0] Goal Plan of Care Note [code = 59435-3] Goal Plan of Care Note [code = 90943-9] Goal Plan of Care Note [code = 57116-3] Goal Plan of Care Note [code = 03773-9] Goal Plan of Care Note [code = 79078-3] Goal Plan of Care Note [code = 47879-8] Goal Plan of Care Note [code = 62845-7] Goal Plan of Care Note [code = 31034-9] Goal Plan of Care Note [code = 70459-8] Goal Plan of Care Note [code = 34528-1] Goal Plan of Care Note [code = 01616-1] Goal Plan of Care Note [code = 41789-9] Goal Plan of Care Note [code = 44897-7] Goal Plan of Care Note [code = 77507-9] Goal Plan of Care Note [code = 72668-5] Goal Plan of Care Note [code = 88411-0] Goal Plan of Care Note [code = 00260-9] Goal Plan of Care Note [code = 76430-1] Goal Plan of Care Note [code = 85668-0] Goal Plan of Care Note [code = 56389-2] Goal Plan of Care Note [code = 20910-2] Goal Plan of Care Note [code = 18507-6] Goal Plan of Care Note [code = 15900-6] Goal Plan of Care Note [code = 67778-9] Goal Plan of Care Note [code = 59374-6] Goal Plan of Care Note [code = 30380-0] Goal Plan of Care Note [code = 77992-2] Goal Plan of Care Note [code = 19106-5] Goal Plan of Care Note [code = 22531-3] Goal Plan of Care Note [code = 37011-9] Goal Plan of Care Note [code = 89157-2] Goal Plan of Care Note [code = 27495-0] Goal Plan of Care Note [code = 42413-5] Goal Plan of Care Note [code = 91695-6] Encounters Start End Encounter Admission Attending Care Care Encounter Source Date/Time Date/Time Type Type Clinicians Facility Department ID 2020-12-17 Inpatient [facility] [id number] [facility] 20:30:00 96 2020-12-17 Inpatient [facility] [id number] [facility] 20:30:00 96 2022-01-13 2022-01-13 Outpatient [facility] [id number] Fady 13:59:33 13:59:33 1108 F Jose E 2022-01-02 2022-01-02 Outpatient [id number] 00:00:00 00:00:00 Visit [id number] 2021-12-29 2021-12-29 Outpatient [facility] [id number] Fady 11:22:55 11:22:55 1024 F Jose E 2021-12-17 2021-12-17 Outpatient [facility] [id number] Fady 13:53:32 13:53:32 1012 F Jose E 2021-10-21 2021-10-21 Outpatient [id number] 00:00:00 00:00:00 Visit [id number] 2020-12-30 2020-12-30 Outpatient [facility] [id number] Devoted 08:02:00 08:02:00 [facility] Medica l Group 2020-10-29 2020-10-29 Outpatient JARAD RINCON [facility] [id number] Univers 13:40:00 13:40:00 JARAD LÓPEZ [place] [facility] 2020-10-28 2020-10-28 Outpatient JARAD RINCON [facility] [id number] Univers 13:40:00 13:40:00 JARAD LÓPEZ [facility] [facility] 2020-10-15 2020-10-15 Outpatient JARAD RINCON [facility] [id number] Univers 13:00:00 13:00:00 JARAD LÓPEZ ity [facility] 2020-10-09 2020-10-09 Orders Doctor SARAH BETH [id number] Univers 00:00:00 00:00:00 Only Unassigned, [facility] [id number] [facility] 4.2.7.2.686 Jean Marie as [phone] [facility] 009 [place] 2020-10-07 2020-10-07 [facility] [id number] Univers 15:30:00 15:30:00 RAAD garner [facility] 2020-10-03 2020-10-03 [facility] [id number] Univers 00:00:00 00:00:00 [facility] [id number] it y of [facility] 4.2.7.2.686 Jean Marie as Specialti [id number] Az dical es 198 [facility] 2020-09-24 2020-09-24 [facility] [id number] Univers 15:45:00 15:45:00 CHRIS y [facility] 2020-02-12 2020-02-13 Emergency X [facility] ERT [id number] Univers 19:02:[facility]09[facility] 2020-02-12 2020-02-13 Emergency [facility] [id number] Univers 19:02:00 00:09:00 Iliana Nguyenton 350.1.13.10 ity of [place] 4.2.7.2.686 [facility] [phone] [address] 2020-02-12 2020-02-13 Emergency [facility] [id number] 19:02:00 00:09:00 Iliana Nguyenton 350.1.13.10 [place] 4.2.7.2.686 [place] [id number] 2019-10-09 2019-10-09 Orders Doctor BURLESON [id number] Univers 00:00:00 00:00:00 Only Unassigned, [place] [id number] ity of [place] [facility] 4.2.7.2.686 Jean Marie as [id number] [address] 2019-10-09 2019-10-09 Orders Doctor SARAH BETH [id number] 00:00:00 00:00:00 Only Unassigned, [place] 350.1.13.10 [place] [facility] 4.2.7.2.686 [id number] 2019-02-14 2019-02-14 Office Deloris Escobar [facility] Spence En counter/ Legacy 00:00:00 00:00:00 Visit Shelly Taveras [id number] [address] [place] [address] 260456 [facility] 2018-09-23 2018-09-23 Office Antonietta Garcia [facility] Legacy En counter/ Legacy 00:00:00 00:00:00 Visit [facility] [id number] [facility] [id number] [facility] Health Contact [place] 2018-09-23 2018-09-23 Office Alec [facility] Legacy Encoun ter/ Legacy 00:00:00 00:00:00 Visit Sarika [facility] [id number] [facility] [id number] [facility] 2017-04-05 2017-04-05 Ambulatory nullFlavo [facility] 3 [id number] Memoria 17:15:00 17:15:00 Pre-Reg r Medicine 02 cate zhou 2017-04-05 2017-04-05 Ambulatory nullFlavo [facility] 3 [id number] Memoria 17:15:00 17:15:00 Pre-Reg r Medicine 02 acte zhou 2017-04-05 2017-04-05 Outpatient [facility] [id number] Memoria 11:15:00 11:15:00 Adam Mera 2017-04-05 2017-04-05 Outpatient Morse, [facility] [id number] 11:15:00 11:15:00 Gail Medina 2017-03-26 2017-03-26 Ambulatory nullFlavo [facility] 3 [id number] Memoria 21:15:00 21:15:00 Pre-Reg r Medicine 01 cate Vazquez n 2017-03-26 2017-03-26 Ambulatory nullFlavo [facility] Family 3 [id number] Memoria 21:15:00 21:15:00 Pre-Reg r Medicine 01 cate Vazquez n 2017-03-26 2017-03-26 Outpatient BARRERA RUST [id number] Memoria 15:15:00 15:15:00 cate Mera 2017-03-26 2017-03-26 Outpatient Morse, [facility] [id number] 15:15:00 15:15:00 Gail N 2016-12-07 2016-12-07 Outpatient [facility]ARRER[facility] RUST [id number] Memoria 11:00:00 11:00:00 00 cate Mera 2016-12-07 2016-12-07 Outpatient BARRERA BENNY [id number] Memoria 11:00:00 11:00:00 00 cate Mera Results Test Description Test Time Test Comments [...] code = NRBCP) 0 % Comprehensive Metabolic [id number] 21:10:00 Test Item Value Reference Range Interpretation [...] 99 U/L 46-116 N = ALP) Ethanol [id number] 21:10:00 Test Item Value Reference Range Interpretation Comments Ethanol (test code = ETOH) < 3 mg/dL Coronavirus PCR, COVID19 [id number] 21:10:00 Test Item Value Reference Range Interpretation Comments Coronavirus PCR, For use under Emergency COVID19 Rapid (test Use Authorization (EUA) code = SARSCOV2) only. Coronavirus PCR, Reference Range: COVID19 Rapid (test Negative code = XBVPVHJ47.1) SARS-CoV-2 PCR Result: Negative by PCR (test code = SARS-CoV-2 PCR Result:) COVID-19 Status: AsymptomaticCBC W/AUTO [id number] 00:00:00 Test Item Value Reference Range Interpretation [...] NUCLEATED RBCS (test code = 0.00 K/UL 44317) CBC W/AUTO [id number] 00:00:00 Test Item Value Reference Range Interpretation [...] NUCLEATED RBCS (test code = 0.00 K/UL 73794) CBC W/AUTO [id number] 00:00:00 Test Item Value Reference Range Interpretation [...] NUCLEATED RBCS (test code = 0.00 K/UL 89293) LIPID [id number] 00:00:00 Test Item Value Reference Range Interpretation Comments CHOLESTEROL (test code = 2210) 189 MG/DL TRIGLYCERIDES (test code = 2232) 135 MG/DL HDL CHOLESTEROL (test code = 2220) 64 MG/DL CALC LDL CHOL (test code = 2237) 102 MG/DL RISK RATIO LDL/HDL (test code = 1.59 RATIO 2238) LIPID [id number] 00:00:00 Test Item Value Reference Range Interpretation Comments CHOLESTEROL (test code = 2210) 189 MG/DL TRIGLYCERIDES (test code = 2232) 135 MG/DL HDL CHOLESTEROL (test code = 2220) 64 MG/DL CALC LDL CHOL (test code = 2237) 102 MG/DL RISK RATIO LDL/HDL (test code = 1.59 RATIO 2238) COMPREHENSIVE METABOLIC [id number] 00:00:00 Test Item Value Reference Range Interpretation Comments GLUCOSE (test code = 2217) 121 MG/DL BUN (test code = 2208) 22 MG/DL CREATININE (test code = 2214) 1.11 MG/DL eGFR AMER. (test code 66 ML/MIN/1.73 = 82103) eGFR NON- AMER. (test 57 ML/MIN/1.73 code = 70796) CALC BUN/CREAT (test code = 20 RATIO [...] code = 2219) 11 U/L COMPREHENSIVE METABOLIC [id number] 00:00:00 Test Item Value Reference Range Interpretation Comments GLUCOSE (test code = 2217) 121 MG/DL BUN (test code = 2208) 22 MG/DL CREATININE (test code = 2214) 1.11 MG/DL eGFR AMER. (test code 66 ML/MIN/1.73 = 25651) eGFR NON- AMER. (test 57 ML/MIN/1.73 code = 52868) CALC BUN/CREAT (test code = 20 RATIO 2235) SODIUM (test code = 2231) 138 MEQ/L POTASSIUM (test code = 2228) 4.4 MEQ/L CHLORIDE (test code = 5) 106 MEQ/L CARBON DIOXIDE (test code = 20 MEQ/L 2205) CALCIUM (test code = 2208) 9.7 MG/DL PROTEIN, TOTAL (test code = 7.5 G/DL 2228) ALBUMIN (test code = 2200) 4.4 G/DL CALC GLOBULIN (test code = 3.1 G/DL 2239) CALC A/G RATIO (test code = 1.4 RATIO 2233) BILIRUBIN, TOTAL (test code = <0.2 MG/DL 2206) ALKALINE PHOSPHATASE (test 96 U/L code = 2203) AST (test code = 2217) 11 U/L ALT (test code = 2218) 11 U/L IRON BINDING CAPACITY AND IRON AND % [id number] 00:00:00 Test Item Value Reference Range Interpretation Comments IRON, SERUM (test code = 2221) 42 UG/DL UNSATURATED IBC (test code = ) 246 UG/DL CALC TOTAL IBC (test code = 2076) 288 UG/DL CALC % IRON SAT (test code = 2078) 15 % IRON BINDING CAPACITY AND IRON AND % [id number] 00:00:00 Test Item Value Reference Range Interpretation Comments IRON, SERUM (test code = 2221) 42 UG/DL UNSATURATED IBC (test code = 69627) 246 UG/DL CALC TOTAL IBC (test code = 2076) 288 UG/DL CALC % IRON SAT (test code = 2078) 15 % [id number] 00:00:00 Test Item Value Reference Range Interpretation Comments FERRITIN (test code = 5) 35 NG/ML [id number] 00:00:00 Test Item Value Reference Range Interpretation Comments FERRITIN (test code = 5) 35 NG/ML [id number] 00:00:00 Test Item Value Reference Range Interpretation Comments TRANSFERRIN (test code = 4936) 232 MG/DL [id number] 00:00:00 Test Item Value Reference Range Interpretation Comments TRANSFERRIN (test code = 4936) 232 MG/DL VITAMIN D, 25 [id number] 00:00:00 Test Item Value Reference Range Interpretation Comments VITAMIN D, 25 OH (test code = 4958) 15 NG/ML VITAMIN D, 25 [id number] 00:00:00 Test Item Value Reference Range Interpretation Comments VITAMIN D, 25 OH (test code = 4958) 15 NG/ML CBC W/AUTO [id number] 00:00:00 Test Item Value Reference Range Interpretation [...] NUCLEATED RBCS (test code = 0.00 K/UL 88423) CBC W/AUTO [id number] 00:00:00 Test Item Value Reference Range Interpretation [...] NUCLEATED RBCS (test code = 0.00 K/UL 92756) CBC W/AUTO [id number] 00:00:00 Test Item Value Reference Range Interpretation [...] NUCLEATED RBCS (test code = 0.00 K/UL 86572) LIPID [id number] 00:00:00 Test Item Value Reference Range Interpretation Comments CHOLESTEROL (test code = 2210) 189 MG/DL TRIGLYCERIDES (test code = 2232) 135 MG/DL HDL CHOLESTEROL (test code = 2220) 64 MG/DL CALC LDL CHOL (test code = 2237) 102 MG/DL RISK RATIO LDL/HDL (test code = 1.59 RATIO 2238) LIPID [id number] 00:00:00 Test Item Value Reference Range Interpretation Comments CHOLESTEROL (test code = 2210) 189 MG/DL TRIGLYCERIDES (test code = 2232) 135 MG/DL HDL CHOLESTEROL (test code = 2220) 64 MG/DL CALC LDL CHOL (test code = 2237) 102 MG/DL RISK RATIO LDL/HDL (test code = 1.59 RATIO 2238) COMPREHENSIVE METABOLIC [id number] 00:00:00 Test Item Value Reference Range Interpretation Comments GLUCOSE (test code = 2217) 121 MG/DL BUN (test code = 2208) 22 MG/DL CREATININE (test code = 2214) 1.11 MG/DL eGFR AMER. (test code 66 ML/MIN/1.73 = 65184) eGFR NON- AMER. (test 57 ML/MIN/1.73 code = 24580) CALC BUN/CREAT (test code = 20 RATIO 2235) SODIUM (test code = 2231) 138 MEQ/L POTASSIUM (test code = 2228) 4.4 MEQ/L CHLORIDE (test code = 2215) 106 MEQ/L CARBON DIOXIDE (test code = 20 MEQ/L 2206) CALCIUM (test code = 2209) 9.7 MG/DL PROTEIN, TOTAL (test code = 7.5 G/DL 2228) ALBUMIN (test code = 2201) 4.4 G/DL CALC GLOBULIN (test code = 3.1 G/DL 2239) CALC A/G RATIO (test code = 1.4 RATIO 2234) BILIRUBIN, TOTAL (test code = <0.2 MG/DL 2206) ALKALINE PHOSPHATASE (test 96 U/L code = 2204) AST (test code = 2218) 11 U/L ALT (test code = 2219) 11 U/L COMPREHENSIVE METABOLIC [id number] 00:00:00 Test Item Value Reference Range Interpretation Comments GLUCOSE (test code = 2217) 121 MG/DL BUN (test code = 2208) 22 MG/DL CREATININE (test code = 2214) 1.11 MG/DL eGFR AMER. (test code 66 ML/MIN/1.73 = 78668) eGFR NON- AMER. (test 57 ML/MIN/1.73 code = 25086) CALC BUN/CREAT (test code = 20 RATIO 2235) SODIUM (test code = 2231) 138 MEQ/L POTASSIUM (test code = 2228) 4.4 MEQ/L CHLORIDE (test code = 2215) 106 MEQ/L CARBON DIOXIDE (test code = 20 MEQ/L 2205) CALCIUM (test code = 220) 9.7 MG/DL PROTEIN, TOTAL (test code = 7.5 G/DL 2228) ALBUMIN (test code = 220) 4.4 G/DL CALC GLOBULIN (test code = 3.1 G/DL 2239) CALC A/G RATIO (test code = 1.4 RATIO 2233) BILIRUBIN, TOTAL (test code = <0.2 MG/DL 2206) ALKALINE PHOSPHATASE (test 96 U/L code = 2204) AST (test code = 2218) 11 U/L ALT (test code = 2219) 11 U/L IRON BINDING CAPACITY AND IRON AND % [id number] 00:00:00 Test Item Value Reference Range Interpretation Comments IRON, SERUM (test code = 2221) 42 UG/DL UNSATURATED IBC (test code = ) 246 UG/DL CALC TOTAL IBC (test code = 2076) 288 UG/DL CALC % IRON SAT (test code = 2078) 15 % IRON BINDING CAPACITY AND IRON AND % [id number] 00:00:00 Test Item Value Reference Range Interpretation Comments IRON, SERUM (test code = 2) 42 UG/DL UNSATURATED IBC (test code = 29998) 246 UG/DL CALC TOTAL IBC (test code = 7) 288 UG/DL CALC % IRON SAT (test code = 2078) 15 % [id number] 00:00:00 Test Item Value Reference Range Interpretation Comments FERRITIN (test code = 5) 35 NG/ML [id number] 00:00:00 Test Item Value Reference Range Interpretation Comments FERRITIN (test code = 2075) 35 NG/ML [id number] 00:00:00 Test Item Value Reference Range Interpretation Comments TRANSFERRIN (test code = 4936) 232 MG/DL [id number] 00:00:00 Test Item Value Reference Range Interpretation Comments TRANSFERRIN (test code = 4936) 232 MG/DL VITAMIN D, 25 [id number] 00:00:00 Test Item Value Reference Range Interpretation Comments VITAMIN D, 25 OH (test code = 4958) 15 NG/ML VITAMIN D, 25 [id number] 00:00:00 Test Item Value Reference Range Interpretation Comments VITAMIN D, 25 OH (test code = 4958) 15 NG/ML CT HEAD WO [id number] 04:01:33 No acute intracranial abnormality. Preliminary Report [...] have reviewed this study and agree withtheabove report.[facility]:20[facility]00 Test Item Value Reference Range Interpretation Comments APPEARANCE (test code = Turbid Clear A 4400297940) COLOR (test code = Roxy Yellow A 3113270133) PH (test code = 4.8-8.0 7730946626) SP GRAVITY (test code = 1.003-1.030 H 5436630023) GLU U QUAL (test code = Normal Normal 0999020068) BLOOD (test code = Negative Negative 4417713813) KETONES (test code = 20 mg/dL Negative A 5488066439) PROTEIN (test code = 30 mg/dL Negative A 2887-8) UROBILIN (test code = Normal Normal 6882125921) BILIRUBIN (test code = Negative Negative 4833727891) NITRITE (test code = Negative Negative 2413735303) LEUK MARKOS (test code = Negative Negative 6341458296) RBC/HPF (test code = See_Comment [Autom ated message] 9670817908) The system [employer] generated this result transmitted ref erence range: 0 - 3 HP F. The reference range was not used to int erpret this result as normal/abnormal . WBC/HPF (test code = See_Comment [Autom ated message] 2172582257) The system [employer] generated this result transmitted ref erence range: 0 - 5 HP F. The reference range was not used to int erpret this result as normal/abnormal . BACTERIA (test code = Many Negative A 8466639243) MUCOUS (test code = Moderate Negative LPF A 8842069277) HYAL CAST (test code = See_Comment H [Aut omated message] 8828034650) The system [employer] generated this result transmitted ref erence range: <=2 LPF. The reference range was not used to int erpret this result as normal/abnormal . GRAN CASTS (test code = See_Comment H [Au tomated message] 9075459812) The system [employer] generated this result transmitted ref erence range: <=1 LPF. The reference range was not used to int erpret this result as normal/abnormal . Lab Interpretation (test Abnormal code = 64692-9) [facility] / [facility] - DRUG SCREEN [id number] 03:00:00 Test Item Value Reference Range Interpretation Comments BENZO U (test code = Negative Negative 9676613597) JESSICA U (test code = Negative Negative 6673401689) AMPHET (test code = Negative Negative 2528992558) THC (test code = Negative Negative 7193553503) METHADONE (test code Negative Negative = 4668304074) Meth U (test code = Negative Negative 1288603823) OPIATES (test code = Negative Negative 5901890091) Cocaine Metabolite Negative Negative (test code = 1668656775) PROPOXY (test code = Negative Negative 2553801264) Tric U (test code = Presumptive Negative A Confirma tion of 5459250147) Positive Presumptive Positive TCA result requires physician order and this will b e sent to referen ce lab. PCP (test code = Negative Negative 6862307707) OXYCOD (test code = Negative Negative 8434710280) TULIO (test code = Urine Drug Cutoff [...] testing). Lab Interpretation Abnormal (test code = 32543-3) [id number] Test Item Value Reference Range Interpretation Comments TROPONIN I (test <0.012 See_Comment [Automated code = [id number]) message] The system which generated this result [...] ? Lab Interpretation Normal (test code = 83653-6) [facility] CenterVALPROIC ACID, [id number] 02:50:00 Test Item Value Reference Range Interpretation Comments VALPROIC A (test code = <10 50-100 L [id number]) TULIO (test code = TULIO) Toxic Range: ?Greater than 100 ug/mL Lab Interpretation (test Abnormal code = 10270-9) [facility] 02:[facility]00 Test Item Value Reference Range Interpretation Comments SALICYLATE (test code <10 mg/L = 1443720269) TULIO (test code = TULIO) Therapeutic Range: ? Analgesic and Antipyretic Use ? 20-100 mg/L ? ? Anti-Inflammatory Use ? 100-250 mg/L Toxic Range: ? Greater than 300 mg/L [facility] 02:45:00 Test Item Value Reference Range Interpretation Comments ALCOHOL (test code = <10 mg/dL [id number]) TULIO (test code = TULIO) <10 [id number] Toxic>100 Depression of HR COORDINATOR>400 Fatalities Reported [facility] 02:44:00 Test Item Value Reference Range Interpretation Comments ACETAMINOP (test code = <10.0 10-30 L [id number]) TULIO (test code = TULIO) Toxic: Greater than 200 ug/mL @ 4 hour post ingestion or greater than 50 ug/mL @ 12 hour post ingestion Lab Interpretation (test Abnormal code = 63527-1) [facility] (67802)2020-02-13 02:43:00 Test Item Value Reference Range Interpretation Comments NA (test code = 138 mmol/L 135-145 9471301419) K (test code = 5.1 mmol/L 3.5-5 H 4741627170) CL (test code = 106 mmol/L 98-108 2042364565) CO2 TOTAL (test code = 19 mmol/L 23-31 L 7599165758) AGAP (test code = 2-16 5168380275) BUN (test code = 26 mg/dL 7-23 H 7345837364) GLUCOSE (test code = 113 mg/dL 70-110 H 6878951279) CREATININE (test code = 1.20 mg/dL 0.5-1.04 H 6342655532) TOTAL BILI (test code = 0.5 mg/dL 0.1-1.6 7467634794) CALCIUM (test code = 10.4 mg/dL 8.6-10.6 9928037533) T PROTEIN (test code = 8.4 g/dL 6.3-8.2 H 4147370232) ALBUMIN (test code = 4.7 g/dL 3.5-5 2723482373) ALK PHOS (test code = 115 U/L 34-122 8302527699) ALTv (test code = 14 U/L 5-35 1742-6) AST(SGOT) (test code = 20 U/L 13-40 8114439755) eGFR Calculation mL/min/1.73m2 (Non-) (test code = 4209858479) eGFR Calculation mL/min/1.73m2 () (test code = 8208042613) TULIO (test code = TULIO) Association of [...] tests). Lab Interpretation Abnormal (test code = 91034-5) [facility]2020-02-13 02:15:00 Test Item Value Reference Range Interpretation Comments SARS-CoV-2 Rapid ID NOW Not Detected Not Detected (test code = 54371-3) TULIO (test code = TULIO) ID NOW COVID-19 Assay is an isothermal nucleic acid amplification test intended for the qualitative detection of nucleic acid from SARS-CoV-2 viral RNA in nasopharyngeal ([employer]) specimens. It is used under Emergency Use [...] indicated. Lab Interpretation Normal (test code = 28366-6) [facility] acute [facility] WITH [id number] 01:53:00 Test Item Value Reference Range Interpretation Comments WBC (test code = See_Comment H [Automated 8410-2) message] The sy stem which generated this result transmitted reference range : 4.30 - 11.10 10*3/?L. The reference range was not used to interpret this result as normal/abnormal . RBC (test code = See_Comment [Automated 679-8) message] The sy stem which generated this [...] RDW-SD (test code = 43.3 fL 39-49.9 15875-5) RDW-CV (test code = 14.1 % 12-15.5 788-0) PLT (test code = See_Comment H [Automated 777-3) message] The sy stem which generated this result transmitted reference range : 166 - 358 10*3/ ?L. The reference r xochitl was not used to interpret this result as normal/abnormal . MPV (test code = 9.6 fL 9.5-12.9 61153-0) NRBC/100 WBC (test See_Comment [Automat ed code = 0105576358) message] The system which generated this result transmitted reference range : 0.0 - 10.0 /100 WBCs. The refer ence range was not u sed to interpret th is result as normal/abnormal . NRBC x10^3 (test code <0.01 See_Comment [Auto mated = [id number]) message] The s ystem which generated this result transmitted reference range : 10*3/?L. The reference range was not used to interpret this result as normal/abnormal . GRAN MAT (NEUT) % 82.3 % (test code = 770-8) IMM GRAN % (test code 0.70 % = 7022605449) LYMPH % (test code = 12.5 % 736-9) MONO % (test code = 3.9 % 5905-5) EOS % (test code = 0.2 % 713-8) BASO % (test code = 0.4 % 706-2) GRAN MAT x10^3(ANC) 9.44 10*3/uL 1.88-7.09 H (test code = 0534123378) IMM GRAN x10^3 (test 0.08 10*3/uL 0-0.06 H code = 4714801733) LYMPH x10^3 (test code 1.43 10*3/uL 1.32-3.29 = 731-0) MONO x10^3 (test code 0.45 10*3/uL 0.33-0.92 = 742-7) EOS x10^3 (test code = <0.03 0.03-0.39 L 711-2) BASO x10^3 (test code 0.05 10*3/uL 0.01-0.07 = 704-7) Lab Interpretation Abnormal (test code = 60783-1) [facility] by RT-PCR (HIGH RISK) 2019-09-22 00:00:00 Test Item Value Reference Range Interpretation Comments SARS-CoV-2 INTERPRETATION (test NEGATIVE code = 94605) SOURCE (test code = 46189) NOT SPECIFIED SARS-CoV-2 (COVID-19) by RT-PCR (HIGH RISK)2019-09-22 00:00:00 Test Item Value Reference Range Interpretation Comments SARS-CoV-2 INTERPRETATION (test NEGATIVE code = 83662) SOURCE (test code = 14724) NOT SPECIFIED SARS-CoV-2 (COVID-19) by RT-PCR (HIGH RISK)2019-09-22 00:00:00 Test Item Value Reference Range Interpretation Comments SARS-CoV-2 INTERPRETATION (test NEGATIVE code = 99796) SOURCE (test code = 41303) NOT SPECIFIED SARS-CoV-2 (COVID-19) by RT-PCR (HIGH RISK)2019-09-22 00:00:00 Test Item Value Reference Range Interpretation Comments SARS-CoV-2 INTERPRETATION (test NEGATIVE code = 74939) SOURCE (test code = 39302) NOT SPECIFIED DRUG SCREEN, [id number] 00:00:00 Test Item Value Reference Range Interpretation Comments AMPHETAMINES (test code = 28004) Negative BARBITURATES (test code = 96685) Negative BENZODIAZEPINES (test code = 02712) Positive COCAINE METABOLITE (test code = Negative 91816) METHADONE (test code = 53716) Negative OPIATES (test code = 847851) Negative PHENCYCLIDINE (test code = 067546) Negative PROPOXYPHENE (test code = 005573) Negative THC (CANNABIS) (test code = 345424) Negative ETHANOL (test code = 843088) Negative DRUG SCREEN, [id number] 00:00:00 Test Item Value Reference Range Interpretation Comments AMPHETAMINES (test code = 98931) Negative BARBITURATES (test code = 76232) Negative BENZODIAZEPINES (test code = 98456) Positive COCAINE METABOLITE (test code = Negative 76053) METHADONE (test code = 11749) Negative OPIATES (test code = 840560) Negative PHENCYCLIDINE (test code = 263910) Negative PROPOXYPHENE (test code = 728080) Negative THC (CANNABIS) (test code = 481444) Negative ETHANOL (test code = 936211) Negative DRUG SCREEN, [id number] 00:00:00 Test Item Value Reference Range Interpretation Comments AMPHETAMINES (test code = 29259) Negative BARBITURATES (test code = 22529) Negative BENZODIAZEPINES (test code = 65532) Positive COCAINE METABOLITE (test code = Negative 42711) METHADONE (test code = 40750) Negative OPIATES (test code = 568099) Negative PHENCYCLIDINE (test code = 573223) Negative PROPOXYPHENE (test code = 722314) Negative THC (CANNABIS) (test code = 908472) Negative ETHANOL (test code = 499639) Negative DRUG SCREEN, [id number] 00:00:00 Test Item Value Reference Range Interpretation Comments AMPHETAMINES (test code = 74533) Negative BARBITURATES (test code = 54478) Negative BENZODIAZEPINES (test code = 81374) Positive COCAINE METABOLITE (test code = Negative 34906) METHADONE (test code = 58988) Negative OPIATES (test code = 556588) Negative PHENCYCLIDINE (test code = 412083) Negative PROPOXYPHENE (test code = 914033) Negative THC (CANNABIS) (test code = 290196) Negative ETHANOL (test code = 871745) Negative BUPRENORPHINE AND [id number] 00:00:00 Test Item Value Reference Range Interpretation Comments NORBUPRENORPHINE (test code = <1.0 ng/mL 57696) BUPRENORPHINE (test code = 60891) <1.0 ng/mL BUPRENORPHINE AND [id number] 00:00:00 Test Item Value Reference Range Interpretation Comments NORBUPRENORPHINE (test code = <1.0 ng/mL 64495) BUPRENORPHINE (test code = 88671) <1.0 ng/mL BUPRENORPHINE AND [id number] 00:00:00 Test Item Value Reference Range Interpretation Comments NORBUPRENORPHINE (test code = <1.0 ng/mL 79182) BUPRENORPHINE (test code = 71190) <1.0 ng/mL BUPRENORPHINE AND [id number] 00:00:00 Test Item Value Reference Range Interpretation Comments NORBUPRENORPHINE (test code = <1.0 ng/mL 90289) BUPRENORPHINE (test code = 67647) <1.0 ng/mL COMPREHENSIVE METABOLIC [id number] 00:00:00 Test Item Value Reference Range Interpretation Comments GLUCOSE (test code = 2217) 105 MG/DL BUN (test code = 2208) 19 MG/DL CREATININE (test code = 2214) 0.94 MG/DL eGFR AMER. (test code 81 ML/MIN/1.73 = 15113) eGFR NON- AMER. (test 70 ML/MIN/1.73 code = 18709) CALC BUN/CREAT (test code = 20 RATIO [...] ALKALINE PHOSPHATASE (test 122 U/L code = 2203) AST (test code = 2218) 19 U/L ALT (test code = 2219) 18 U/L COMPREHENSIVE METABOLIC [id number] 00:00:00 Test Item Value Reference Range Interpretation Comments GLUCOSE (test code = 2217) 105 MG/DL BUN (test code = 2208) 19 MG/DL CREATININE (test code = 2214) 0.94 MG/DL eGFR AMER. (test code 81 ML/MIN/1.73 = 64060) eGFR NON- AMER. (test 70 ML/MIN/1.73 code = 29559) CALC BUN/CREAT (test code = 20 RATIO [...] code = 2219) 18 U/L COMPREHENSIVE METABOLIC [id number] 00:00:00 Test Item Value Reference Range Interpretation Comments GLUCOSE (test code = 2217) 105 MG/DL BUN (test code = 2208) 19 MG/DL CREATININE (test code = 2214) 0.94 MG/DL eGFR AMER. (test code 81 ML/MIN/1.73 = 72443) eGFR NON- AMER. (test 70 ML/MIN/1.73 code = 80595) CALC BUN/CREAT (test code = 20 RATIO [...] CALC GLOBULIN (test code = 3.1 G/DL 2239) CALC A/G RATIO (test code = 1.4 RATIO 2234) BILIRUBIN, TOTAL (test code = 0.3 MG/DL 2206) ALKALINE PHOSPHATASE (test 122 U/L code = 2204) AST (test code = 2218) 19 U/L ALT (test code = 2219) 18 U/L COMPREHENSIVE METABOLIC [id number] 00:00:00 Test Item Value Reference Range Interpretation Comments GLUCOSE (test code = 2217) 105 MG/DL BUN (test code = 2208) 19 MG/DL CREATININE (test code = 2214) 0.94 MG/DL eGFR AMER. (test code 81 ML/MIN/1.73 = 53499) eGFR NON- AMER. (test 70 ML/MIN/1.73 code = 24202) CALC BUN/CREAT (test code = 20 RATIO 2235) SODIUM (test code = 2231) 139 MEQ/L POTASSIUM (test code = 2228) 5.8 MEQ/L CHLORIDE (test code = 2215) 108 MEQ/L CARBON DIOXIDE (test code = 23 MEQ/L 220) CALCIUM (test code = 2209) 9.3 MG/DL PROTEIN, TOTAL (test code = 7.4 G/DL 2229) ALBUMIN (test code = 2201) 4.3 G/DL CALC GLOBULIN (test code = 3.1 G/DL 2240) CALC A/G RATIO (test code = 1.4 RATIO 2234) BILIRUBIN, TOTAL (test code = 0.3 MG/DL 2207) ALKALINE PHOSPHATASE (test 122 U/L code = 2204) AST (test code = 2218) 19 U/L ALT (test code = 2219) 18 U/L DRUG SCREEN, [id number] 00:00:00 Test Item Value Reference Range Interpretation Comments AMPHETAMINES (test code = 47162) Negative BARBITURATES (test code = 12353) Negative BENZODIAZEPINES (test code = 71755) Negative COCAINE METABOLITE (test code = Negative 28633) METHADONE (test code = 21903) Negative OPIATES (test code = 238527) Negative PHENCYCLIDINE (test code = 214048) Negative PROPOXYPHENE (test code = 049923) Negative THC (CANNABIS) (test code = 692150) Negative ETHANOL (test code = 864654) Negative DRUG SCREEN, [id number] 00:00:00 Test Item Value Reference Range Interpretation Comments AMPHETAMINES (test code = 59565) Negative BARBITURATES (test code = 02859) Negative BENZODIAZEPINES (test code = 94628) Negative COCAINE METABOLITE (test code = Negative 81873) METHADONE (test code = 65572) Negative OPIATES (test code = 870170) Negative PHENCYCLIDINE (test code = 760926) Negative PROPOXYPHENE (test code = 652764) Negative THC (CANNABIS) (test code = 195576) Negative ETHANOL (test code = 686361) Negative DRUG SCREEN, [id number] 00:00:00 Test Item Value Reference Range Interpretation Comments AMPHETAMINES (test code = 28485) Negative BARBITURATES (test code = 19295) Negative BENZODIAZEPINES (test code = 96826) Negative COCAINE METABOLITE (test code = Negative 43864) METHADONE (test code = 95461) Negative OPIATES (test code = 198695) Negative PHENCYCLIDINE (test code = 690251) Negative PROPOXYPHENE (test code = 264047) Negative THC (CANNABIS) (test code = 463380) Negative ETHANOL (test code = 104614) Negative DRUG SCREEN, [id number] 00:00:00 Test Item Value Reference Range Interpretation Comments AMPHETAMINES (test code = 61170) Negative BARBITURATES (test code = 43049) Negative BENZODIAZEPINES (test code = 72736) Negative COCAINE METABOLITE (test code = Negative 35867) METHADONE (test code = 98912) Negative OPIATES (test code = 204786) Negative PHENCYCLIDINE (test code = 447102) Negative PROPOXYPHENE (test code = 486558) Negative THC (CANNABIS) (test code = 129995) Negative ETHANOL (test code = 349633) Negative CBC W/AUTO [id number] 00:00:00 Test Item Value Reference Range Interpretation [...] code = 1015) 307 K/UL CBC W/AUTO [id number] 00:00:00 Test Item Value Reference Range Interpretation [...] code = 1015) 307 K/UL CBC W/AUTO [id number] 00:00:00 Test Item Value Reference Range Interpretation [...] code = 1015) 307 K/UL CBC W/AUTO [id number] 00:00:00 Test Item Value Reference Range Interpretation [...] code = 1015) 307 K/UL CBC W/AUTO [id number] 00:00:00 Test Item Value Reference Range Interpretation [...] code = 1015) 307 K/UL CBC W/AUTO [id number] 00:00:00 Test Item Value Reference Range Interpretation [...] code = 1015) 307 K/UL DRUG SCREEN, [id number] 00:00:00 Test Item Value Reference Range Interpretation Comments AMPHETAMINES (test code = 06557) Negative BARBITURATES (test code = 94886) Negative BENZODIAZEPINES (test code = 96881) Positive COCAINE METABOLITE (test code = Negative 42252) METHADONE (test code = 67881) Negative OPIATES (test code = 281655) Negative PHENCYCLIDINE (test code = 683129) Negative PROPOXYPHENE (test code = 080051) Negative THC (CANNABIS) (test code = 633840) Negative ETHANOL (test code = 835343) Negative DRUG SCREEN, [id number] 00:00:00 Test Item Value Reference Range Interpretation Comments AMPHETAMINES (test code = 05753) Negative BARBITURATES (test code = 73181) Negative BENZODIAZEPINES (test code = 63725) Positive COCAINE METABOLITE (test code = Negative 13151) METHADONE (test code = 46864) Negative OPIATES (test code = 071688) Negative PHENCYCLIDINE (test code = 743382) Negative PROPOXYPHENE (test code = 312634) Negative THC (CANNABIS) (test code = 674239) Negative ETHANOL (test code = 776279) Negative DRUG SCREEN, [id number] 00:00:00 Test Item Value Reference Range Interpretation Comments AMPHETAMINES (test code = 36697) Negative BARBITURATES (test code = 94288) Negative BENZODIAZEPINES (test code = 54387) Positive COCAINE METABOLITE (test code = Negative 49378) METHADONE (test code = 30305) Negative OPIATES (test code = 881719) Negative PHENCYCLIDINE (test code = 108035) Negative PROPOXYPHENE (test code = 522691) Negative THC (CANNABIS) (test code = 669893) Negative ETHANOL (test code = 181307) Negative DRUG SCREEN, [id number] 00:00:00 Test Item Value Reference Range Interpretation Comments AMPHETAMINES (test code = 76804) Negative BARBITURATES (test code = 83485) Negative BENZODIAZEPINES (test code = 52074) Positive COCAINE METABOLITE (test code = Negative 92709) METHADONE (test code = 87379) Negative OPIATES (test code = 273738) Negative PHENCYCLIDINE (test code = 865492) Negative PROPOXYPHENE (test code = 130089) Negative THC (CANNABIS) (test code = 398291) Negative ETHANOL (test code = 573622) Negative BUPRENORPHINE AND [id number] 00:00:00 Test Item Value Reference Range Interpretation Comments NORBUPRENORPHINE (test code = 2.7 ng/mL 00867) BUPRENORPHINE (test code = 18673) 6.4 ng/mL BUPRENORPHINE AND [id number] 00:00:00 Test Item Value Reference Range Interpretation Comments NORBUPRENORPHINE (test code = 2.7 ng/mL 75800) BUPRENORPHINE (test code = 59533) 6.4 ng/mL BUPRENORPHINE AND [id number] 00:00:00 Test Item Value Reference Range Interpretation Comments NORBUPRENORPHINE (test code = 2.7 ng/mL 26821) BUPRENORPHINE (test code = 19683) 6.4 ng/mL BUPRENORPHINE AND [id number] 00:00:00 Test Item Value Reference Range Interpretation Comments NORBUPRENORPHINE (test code = 2.7 ng/mL 06968) BUPRENORPHINE (test code = 53570) 6.4 ng/mL COMPREHENSIVE METABOLIC PANEL [ADDED]2019-06-15 00:00:00 Test Item Value Reference Range Interpretation Comments GLUCOSE (test code = 2217) 112 MG/DL BUN (test code = 2208) 32 MG/DL CREATININE (test code = 2214) 1.18 MG/DL eGFR AMER. (test code 62 ML/MIN/1.73 = 56910) eGFR NON- AMER. (test 53 ML/MIN/1.73 code = 24116) CALC BUN/CREAT (test code = 27 RATIO [...] eGFR AMER. (test code 62 ML/MIN/1.73 = 00275) eGFR NON- AMER. (test 53 ML/MIN/1.73 code = 82322) CALC BUN/CREAT (test code = 27 RATIO [...] CALC GLOBULIN (test code = 2.9 G/DL 224) CALC A/G RATIO (test code = 1.4 [...] COUNT (test code = 1015) 331 K/UL COMPREHENSIVE METABOLIC PANEL [ADDED]2019-06-15 00:00:00 Test Item Value Reference Range Interpretation Comments GLUCOSE (test code = 2217) 112 MG/DL BUN (test code = 2208) 32 MG/DL CREATININE (test code = 2214) 1.18 MG/DL eGFR AMER. (test code 62 ML/MIN/1.73 = 48346) eGFR NON- AMER. (test 53 ML/MIN/1.73 code = 99675) CALC BUN/CREAT (test code = 27 RATIO 2235) SODIUM (test code = 2231) 136 MEQ/L POTASSIUM (test code = 2228) 6.5 MEQ/L CHLORIDE (test code = 2215) 104 MEQ/L CARBON DIOXIDE (test code = 20 MEQ/L 2206) CALCIUM (test code = 2209) 9.0 MG/DL PROTEIN, TOTAL (test code = 7.0 G/DL 222) ALBUMIN (test code = 2201) 4.1 G/DL [...] eGFR AMER. (test code 62 ML/MIN/1.73 = 83201) eGFR NON- AMER. (test 53 ML/MIN/1.73 code = 65540) CALC BUN/CREAT (test code = 27 RATIO [...] Comments HYDROXYALPRAZOLAM INTERP (test code Positive = 71672) HYDROXYALPRAZOLAM QNT (test code = 883 ng/mL 168191) LORAZEPAM INTERP (test code = Negative 96565) LORAZEPAM QNT (test code = 91291) <50 ng/mL OXAZEPAM INTERP (test code = 70919) Negative OXAZEPAM QNT (test code = 48188) <50 ng/mL TEMAZEPAM INTERP (test code = Negative 822891) TEMAZEPAM QNT (test code = 804293) <50 ng/mL NORDIAZEPAM INTERP (test code = Negative 18321) NORDIAZEPAM QNT (test code = 89279) <50 ng/mL UI-IJSFJ-FITHTGBAIS INTERP (test Negative code = 839826) GD-JVVHD-AXMXMTTOCZ QNT (test code <50 ng/mL = 811558) 7-AMINOCLONAZEPAM INTERP (test code Negative = 886908) 7-AMINOCLONAZEPAM QNT (test code = <50 ng/mL 194233) 7-AMINOFLUNITRAZEPAM INTERP (test Negative code = 488295) 7-AMINOFLUNITRAZEPAM QNT (test code <50 ng/mL = 633974) HYDROXYTRIAZOLAM INTERP (test code Negative = 390414) HYDROXYTRIAZOLAM QNT (test code = <50 ng/mL 997105) BENZODIAZEPINE, QUANT, URINE [REFLEX]2019-05-26 00:00:00 Test Item Value Reference Range Interpretation Comments HYDROXYALPRAZOLAM INTERP (test code Positive = 72246) HYDROXYALPRAZOLAM QNT (test code = 883 ng/mL 889963) LORAZEPAM INTERP (test code = Negative 54842) LORAZEPAM QNT (test code = 78289) <50 ng/mL OXAZEPAM INTERP (test code = 23159) Negative OXAZEPAM QNT (test code = 15267) <50 ng/mL TEMAZEPAM INTERP (test code = Negative 373118) TEMAZEPAM QNT (test code = 137802) <50 ng/mL NORDIAZEPAM INTERP (test code = Negative 41423) NORDIAZEPAM QNT (test code = 04248) <50 ng/mL KU-MOIEE-XLIJODSIHB INTERP (test Negative code = 539488) TO-JQDXT-BDUJFJWEMV QNT (test code <50 ng/mL = 531821) 7-AMINOCLONAZEPAM INTERP (test code Negative = 120417) 7-AMINOCLONAZEPAM QNT (test code = <50 ng/mL 188055) 7-AMINOFLUNITRAZEPAM INTERP (test Negative code = 107142) 7-AMINOFLUNITRAZEPAM QNT (test code <50 ng/mL = 284985) HYDROXYTRIAZOLAM INTERP (test code Negative = 447671) HYDROXYTRIAZOLAM QNT (test code = <50 ng/mL 324239) BUPRENORPHINE, QUANT, URINE [REFLEX]2019-05-26 00:00:00 Test Item Value Reference Range Interpretation Comments BUPRENORPHINE INTERP (test code = Positive 97015) BUPRENORPHINE QNT (test code = 65 ng/mL 36887) BENZODIAZEPINE, QUANT, URINE [REFLEX]2019-05-26 00:00:00 Test Item Value Reference Range Interpretation Comments HYDROXYALPRAZOLAM INTERP (test code Positive = 68021) HYDROXYALPRAZOLAM QNT (test code = 883 ng/mL 458276) LORAZEPAM INTERP (test code = Negative 05004) LORAZEPAM QNT (test code = 21277) <50 ng/mL OXAZEPAM INTERP (test code = 00212) Negative OXAZEPAM QNT (test code = 72482) <50 ng/mL TEMAZEPAM INTERP (test code = Negative 845065) TEMAZEPAM QNT (test code = 717331) <50 ng/mL NORDIAZEPAM INTERP (test code = Negative 60388) NORDIAZEPAM QNT (test code = 03358) <50 ng/mL PB-TSSRG-DRRIKGHKFV INTERP (test Negative code = 482851) DH-LGHHZ-EEHKDRJAVQ QNT (test code <50 ng/mL = 336355) 7-AMINOCLONAZEPAM INTERP (test code Negative = 747365) 7-AMINOCLONAZEPAM QNT (test code = <50 ng/mL 842292) 7-AMINOFLUNITRAZEPAM INTERP (test Negative code = 286755) 7-AMINOFLUNITRAZEPAM QNT (test code <50 ng/mL = 298815) HYDROXYTRIAZOLAM INTERP (test code Negative = 424543) HYDROXYTRIAZOLAM QNT (test code = <50 ng/mL 613429) BENZODIAZEPINE, QUANT, URINE [REFLEX]2019-05-26 00:00:00 Test Item Value Reference Range Interpretation Comments HYDROXYALPRAZOLAM INTERP (test code Positive = 40745) HYDROXYALPRAZOLAM QNT (test code = 883 ng/mL 003195) LORAZEPAM INTERP (test code = Negative 43273) LORAZEPAM QNT (test code = 58386) <50 ng/mL OXAZEPAM INTERP (test code = 90039) Negative OXAZEPAM QNT (test code = 50578) <50 ng/mL TEMAZEPAM INTERP (test code = Negative 450153) TEMAZEPAM QNT (test code = 190303) <50 ng/mL NORDIAZEPAM INTERP (test code = Negative 53163) NORDIAZEPAM QNT (test code = 37409) <50 ng/mL FN-RXFDA-OFWLBCTWVL INTERP (test Negative code = 881454) LW-QJYUN-VLLMVDQGSK QNT (test code <50 ng/mL = 512151) 7-AMINOCLONAZEPAM INTERP (test code Negative = 345649) 7-AMINOCLONAZEPAM QNT (test code = <50 ng/mL 325952) 7-AMINOFLUNITRAZEPAM INTERP (test Negative code = 106067) 7-AMINOFLUNITRAZEPAM QNT (test code <50 ng/mL = 004805) HYDROXYTRIAZOLAM INTERP (test code Negative = 248658) HYDROXYTRIAZOLAM QNT (test code = <50 ng/mL 741056) BUPRENORPHINE, QUANT, URINE [REFLEX]2019-05-26 00:00:00 Test Item Value Reference Range Interpretation Comments BUPRENORPHINE INTERP (test code = Positive 14013) BUPRENORPHINE QNT (test code = 65 ng/mL 15598) CBC W/AUTO [id number] 00:00:00 Test Item Value Reference Range Interpretation [...] code = 1015) 320 K/UL CBC W/AUTO [id number] 00:00:00 Test Item Value Reference Range Interpretation [...] code = 1015) 320 K/UL CBC W/AUTO [id number] 00:00:00 Test Item Value Reference Range Interpretation [...] code = 1015) 320 K/UL COMPREHENSIVE METABOLIC [id number] 00:00:00 Test Item Value Reference Range Interpretation Comments GLUCOSE (test code = 2217) 121 MG/DL BUN (test code = 2208) 25 MG/DL CREATININE (test code = 2214) 1.01 MG/DL eGFR AMER. (test code 75 ML/MIN/1.73 = 80372) eGFR NON- AMER. (test 64 ML/MIN/1.73 code = 15242) CALC BUN/CREAT (test code = 25 RATIO 2235) SODIUM (test code = 2231) 137 MEQ/L POTASSIUM (test code = 2228) 6.3 MEQ/L CHLORIDE (test code = 2215) 102 MEQ/L CARBON DIOXIDE (test code = 24 MEQ/L 220) CALCIUM (test code = 2209) 9.0 MG/DL PROTEIN, TOTAL (test code = 7.1 G/DL 2228) ALBUMIN (test code = 2201) 4.3 G/DL CALC GLOBULIN (test code = 2.8 G/DL 2240) CALC A/G RATIO (test code = 1.5 RATIO 2234) BILIRUBIN, TOTAL (test code = 0.2 MG/DL 2206) ALKALINE PHOSPHATASE (test 129 U/L code = 2204) AST (test code = 2218) 12 U/L ALT (test code = 2219) 11 U/L COMPREHENSIVE METABOLIC [id number] 00:00:00 Test Item Value Reference Range Interpretation Comments GLUCOSE (test code = 2217) 121 MG/DL BUN (test code = 2208) 25 MG/DL CREATININE (test code = 2214) 1.01 MG/DL eGFR AMER. (test code 75 ML/MIN/1.73 = 47260) eGFR NON- AMER. (test 64 ML/MIN/1.73 code = 76259) CALC BUN/CREAT (test code = 25 RATIO 2235) SODIUM (test code = 2231) 137 MEQ/L POTASSIUM (test code = 2228) 6.3 MEQ/L CHLORIDE (test code = 2215) 102 MEQ/L CARBON DIOXIDE (test code = 24 MEQ/L 220) CALCIUM (test code = 2209) 9.0 MG/DL PROTEIN, TOTAL (test code = 7.1 G/DL 2228) ALBUMIN (test code = 2201) 4.3 G/DL CALC GLOBULIN (test code = 2.8 G/DL 2240) CALC A/G RATIO (test code = 1.5 RATIO 2234) BILIRUBIN, TOTAL (test code = 0.2 MG/DL 220) ALKALINE PHOSPHATASE (test 129 U/L code = 2204) AST (test code = 2218) 12 U/L ALT (test code = 2219) 11 U/L HEPATITIS PROFILE (A,B,C)2019-05-25 00:00:00 Test Item Value Reference Range Interpretation Comments HEPATITIS A TOTAL AB (test code NON-REACTIVE = 2725) HEPATITIS B SURF AG (test code = NON-REACTIVE 273) HEP B CORE TOTAL AB (test code = REACTIVE 272) HEPATITIS B SURFACE AB (test NON-REACTIVE code = 2737) HEPATITIS C ANTIBODY (test code NON-REACTIVE = 4675) INTERPRETATION HEPATITIS A: (NOTE) (test code = 2552) INTERPRETATION HEPATITIS B: (NOTE) (test code = 32322) INTERPRETATION HEPATITIS C: (NOTE) (test code = 62395) HEPATITIS PROFILE (A,B,C)2019-05-25 00:00:00 Test Item Value Reference Range Interpretation Comments HEPATITIS A TOTAL AB (test code NON-REACTIVE = 2725) HEPATITIS B SURF AG (test code = NON-REACTIVE 2739) HEP B CORE TOTAL AB (test code = REACTIVE 272) HEPATITIS B SURFACE AB (test NON-REACTIVE code = 2737) HEPATITIS C ANTIBODY (test code NON-REACTIVE = 4675) INTERPRETATION HEPATITIS A: (NOTE) (test code = 2552) INTERPRETATION HEPATITIS B: (NOTE) (test code = 83732) INTERPRETATION HEPATITIS C: (NOTE) (test code = 39508) HIV AB/AG COMBO RFLX [id number] 00:00:00 Test Item Value Reference Range Interpretation Comments HIV 1/2 4TH GEN, RFLX CONF (test NON-REACTIVE code = 3514) HIV AB/AG COMBO RFLX [id number] 00:00:00 Test Item Value Reference Range Interpretation Comments HIV 1/2 4TH GEN, RFLX CONF (test NON-REACTIVE code = 3514) DRUG ABUSE PANEL 10 WITH [id number] 00:00:00 Test Item Value Reference Range Interpretation Comments AMPHETAMINES (test code = NEGATIVE 3201) BARBITURATES (test code = NEGATIVE 3202) BENZODIAZEPINES (test code SEE REFLEX TESTING = 3203) CANNABINOIDS (test code = NEGATIVE 3204) COCAINE METABOLITE (test NEGATIVE code = 3205) OPIATES (test code = 3209) NEGATIVE OXYCODONE (test code = NEGATIVE 44210) PHENCYCLIDINE (test code = NEGATIVE 3210) METHADONE (test code = NEGATIVE 3207) BUPRENORPHINE (test code = SEE REFLEX TESTING 36791) DRUG ABUSE PANEL 10 WITH [id number] 00:00:00 Test Item Value Reference Range Interpretation Comments AMPHETAMINES (test code = NEGATIVE 3201) BARBITURATES (test code = NEGATIVE 3202) BENZODIAZEPINES (test code SEE REFLEX TESTING = 3203) CANNABINOIDS (test code = NEGATIVE 3204) COCAINE METABOLITE (test NEGATIVE code = 3205) OPIATES (test code = 3209) NEGATIVE OXYCODONE (test code = NEGATIVE 30343) PHENCYCLIDINE (test code = NEGATIVE 3210) METHADONE (test code = NEGATIVE 3207) BUPRENORPHINE (test code = SEE REFLEX TESTING 69309) CBC W/AUTO [id number] 00:00:00 Test Item Value Reference Range Interpretation [...] code = 1015) 320 K/UL CBC W/AUTO [id number] 00:00:00 Test Item Value Reference Range Interpretation [...] code = 1015) 320 K/UL CBC W/AUTO [id number] 00:00:00 Test Item Value Reference Range Interpretation [...] code = 1015) 320 K/UL COMPREHENSIVE METABOLIC [id number] 00:00:00 Test Item Value Reference Range Interpretation Comments GLUCOSE (test code = 2217) 121 MG/DL BUN (test code = 2208) 25 MG/DL CREATININE (test code = 2214) 1.01 MG/DL eGFR AMER. (test code 75 ML/MIN/1.73 = 01315) eGFR NON- AMER. (test 64 ML/MIN/1.73 code = 72009) CALC BUN/CREAT (test code = 25 RATIO 2235) SODIUM (test code = 2231) 137 MEQ/L POTASSIUM (test code = 2228) 6.3 MEQ/L CHLORIDE (test code = 2215) 102 MEQ/L CARBON DIOXIDE (test code = 24 MEQ/L 220) CALCIUM (test code = 2209) 9.0 MG/DL PROTEIN, TOTAL (test code = 7.1 G/DL 2228) ALBUMIN (test code = 2201) 4.3 G/DL CALC GLOBULIN (test code = 2.8 G/DL 2240) CALC A/G RATIO (test code = 1.5 RATIO 223) BILIRUBIN, TOTAL (test code = 0.2 MG/DL 2206) ALKALINE PHOSPHATASE (test 129 U/L code = 2204) AST (test code = 2218) 12 U/L ALT (test code = 2219) 11 U/L COMPREHENSIVE METABOLIC [id number] 00:00:00 Test Item Value Reference Range Interpretation Comments GLUCOSE (test code = 2217) 121 MG/DL BUN (test code = 2208) 25 MG/DL CREATININE (test code = 2214) 1.01 MG/DL eGFR AMER. (test code 75 ML/MIN/1.73 = 93761) eGFR NON- AMER. (test 64 ML/MIN/1.73 code = 89940) CALC BUN/CREAT (test code = 25 RATIO 2235) SODIUM (test code = 2231) 137 MEQ/L POTASSIUM (test code = 2228) 6.3 MEQ/L CHLORIDE (test code = 2215) 102 MEQ/L CARBON DIOXIDE (test code = 24 MEQ/L 2206) CALCIUM (test code = 2209) 9.0 MG/DL PROTEIN, TOTAL (test code = 7.1 G/DL 2228) ALBUMIN (test code = 2201) 4.3 G/DL CALC GLOBULIN (test code = 2.8 G/DL 2240) CALC A/G RATIO (test code = 1.5 RATIO 2234) BILIRUBIN, TOTAL (test code = 0.2 MG/DL 2207) ALKALINE PHOSPHATASE (test 129 U/L code = 2204) AST (test code = 2218) 12 U/L ALT (test code = 2219) 11 U/L HEPATITIS PROFILE (A,B,C)2019-05-25 00:00:00 Test Item Value [...] INTERPRETATION HEPATITIS B: (NOTE) (test code = 49061) INTERPRETATION HEPATITIS C: (NOTE) (test code = 53330) HEPATITIS PROFILE (A,B,C)2019-05-25 00:00:00 Test Item Value [...] INTERPRETATION HEPATITIS B: (NOTE) (test code = 21629) INTERPRETATION HEPATITIS C: (NOTE) (test code = 99942) HIV AB/AG COMBO RFLX [id number] 00:00:00 Test Item Value Reference Range Interpretation Comments HIV 1/2 4TH GEN, RFLX CONF (test NON-REACTIVE code = 3514) HIV AB/AG COMBO RFLX [id number] 00:00:00 Test Item Value Reference Range Interpretation Comments HIV 1/2 4TH GEN, RFLX CONF (test NON-REACTIVE code = 3514) DRUG ABUSE PANEL 10 WITH [id number] 00:00:00 Test Item Value Reference Range Interpretation Comments AMPHETAMINES (test code = NEGATIVE 3201) BARBITURATES (test code = NEGATIVE 3202) BENZODIAZEPINES (test code SEE REFLEX TESTING = 3203) CANNABINOIDS (test code = NEGATIVE 3204) COCAINE METABOLITE (test NEGATIVE code = 3205) OPIATES (test code = 3209) NEGATIVE OXYCODONE (test code = NEGATIVE 22270) PHENCYCLIDINE (test code = NEGATIVE 3210) METHADONE (test code = NEGATIVE 3207) BUPRENORPHINE (test code = SEE REFLEX TESTING 50523) DRUG ABUSE PANEL 10 WITH [id number] 00:00:00 Test Item Value Reference Range Interpretation Comments AMPHETAMINES (test code = NEGATIVE 3201) BARBITURATES (test code = NEGATIVE 3202) BENZODIAZEPINES (test code SEE REFLEX TESTING = 3203) CANNABINOIDS (test code = NEGATIVE 3204) COCAINE METABOLITE (test NEGATIVE code = 3205) OPIATES (test code = 3209) NEGATIVE OXYCODONE (test code = NEGATIVE 54788) PHENCYCLIDINE (test code = NEGATIVE 3210) METHADONE (test code = NEGATIVE 3207) BUPRENORPHINE (test code = SEE REFLEX TESTING 76556)
[2022-01-17 20:33] LABS: Urine Blood Negative (Negative); Urine Glucose Negative (Negative); Urine Protein 2+ (Negative); Urine Specific Gravity >=1.030 (1.005-1.030)
[2022-01-17 21:00] LABS: Calcium Oxalate Crystals- Ur Many /HPF (None Seen); Urine Mucus 1+ /HPF (None Seen); Urine RBC <5 /HPF (None Seen)
[2022-01-17] MEDS ORDERED: ONDANSETRON 4 MG/2 ML VIAL ONE (21:33)
[2022-01-17] MEDS ORDERED: FAMOTIDINE 20 MG/2 ML VIAL IV ONE (21:33)
[2022-01-17 21:49] LABS: Absolute Lymphocytes (CBC) 2.1 K/uL (0.7-4.9); Hematocrit 33.7 % (36.0-45.0); Lymphocytes % 40.9 % (15.3-44.8); MCV 81.5 fL (80-100); MPV 7.6 fL (7.6-11.3); RBC Red Blood Cell Count 4.13 M/uL (3.86-4.86)
[2022-01-17 22:07] LABS: Albumin 2.8 g/dL (3.4-5.0); Bilirubin Total 0.2 mg/dL (0.2-1.0); Protein, Total 6.9 g/dL (6.4-8.2)
[2022-01-17 22:49] LABS: Potassium 5.5 mmol/L (3.5-5.1)
--- NOTE | 2022-01-17 23:13 | RAD REPORT ---
EXAM DESCRIPTION: CTAbdomen Pelvis W Contrast - 01/17/2022 11:04 pm CLINICAL HISTORY: Lower abdominal pain COMPARISON: CT ABD PELVIS W CONTRAST dated 04/05/2014 TECHNIQUE: CT of the abdomen and pelvis was performed. All CT scans are performed using dose optimization technique as appropriate and may include automated exposure control or mA/KV adjustment according to patient size. FINDINGS: Lower chest: No acute abnormality. Liver: No acute abnormality or suspicious lesions. Biliary: Cholecystectomy Stomach: No significant focal abnormality. Duodenum: No significant focal abnormality. Pancreas: Atrophy of the pancreas. Spleen: No significant abnormality. Adrenal: No suspicious lesions. Kidney/ureter: No hydronephrosis. No renal calculi. Retroperitoneum: No retroperitoneal adenopathy. Vascular: No aneurysm. Bowel: No significant focal abnormality. Normal appendix. Peritoneum: No ascites or free air. Bladder: Grossly unremarkable. Reproductive: No adnexal masses. Bones: No acute fracture. Other: n/a IMPRESSION: No acute intra-abdominal or pelvic finding. Normal appendix. No urinary tract calculi or hydronephrosis.
--- NOTE | 2022-01-18 00:36 | EDPHYS ---
Physician Documentation [facility] Name: Tabatha Chambers Age: 56 yrs Sex: Female : 1965 Arrival Date: 01/17/2022 Time: 20:06 Bed 3 Private MD: ED Physician Miguel Pollard HPI: 01/17 21:19 This 56 yrs old Female presents to ER via Ambulatory with complaints of ms3 Urinary Retention. 21:19 The patient presents with abdominal pain in the lower abdomen. Onset: The ms3 symptoms/episode began/occurred 1.5 week(s) ago. The symptoms do not radiate. Associated signs and symptoms: none. The symptoms are described as achy. Modifying factors: The symptoms are alleviated by nothing, the symptoms are aggravated by nothing. Severity of pain: At its worst the pain was moderate. 56-year-old female presents for lower abdominal pain and dysuria that has been ongoing for 1.5 weeks. Patient denies alleviating or inciting factors. Patient states her pain is a 6/10. Patient denies fevers, chills, nausea, vomiting. 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 kb3 Historical: - Allergies: 20:19 No Known Allergies; kb3 - Home Meds: 01/18 00:48 albuterol sulfate 90 mcg/actuation Inhl HFAA 2 puffs every 4 hours for Bronchospasm kl Prevention [Active]; folic acid 1 mg Oral tab 1 tab once daily for Folate Deficiency [Active]; aspirin 81 mg Oral chew 1 tab once daily for Prevention of Transient Ischemic Attacks [Active]; melatonin 10 mg Oral cap nightly for sleep disorder [Active]; lisinopril 20 mg Oral tab 1 tab once daily for Hypertension [Active]; - PMHx: 01/17 20:19 Hypertension; Seizures; kb3 - PSHx: 20:19 ankle SX; Cholecystectomy; tubes tied; kb3 - Immunization history:: Adult Immunizations up to date, Client reports having NOT received the Covid vaccine. Last tetanus immunization: up to date. - Social history:: Smoking status: Patient denies any tobacco usage or history of. ROS: 21:19 Constitutional: Negative for fever, and chills. Neck: Negative for injury, pain, and ms3 swelling, Cardiovascular: Negative for chest pain, and palpitations. Respiratory: Negative for shortness of breath, cough, wheezing, and pleuritic chest pain. 21:19 MS/Extremity: Negative for injury and deformity, Skin: Negative for injury, rash, and discoloration. 21:19 Abdomen/GI: Positive for abdominal pain. 21:19 All other systems are negative. Exam: 21:19 Constitutional: This is a well developed, well nourished patient who is awake, alert, ms3 and in no acute distress. Head/Face: Normocephalic, atraumatic. Eyes: Pupils equal round and reactive to light, extra-ocular motions intact. Lids and lashes normal. Conjunctiva and sclera are non-icteric and not injected. Periorbital areas with no swelling, redness, or edema. Neck: Trachea midline, no cervical lymphadenopathy. Supple, full range of motion without nuchal rigidity, or vertebral point tenderness. No Meningismus. Chest/axilla: Normal chest wall appearance and motion. Nontender with no deformity. Cardiovascular: Regular rate and rhythm with a normal S1 and S2. No gallops, murmurs, or rubs. Normal PMI, no JVD. No pulse deficits. Respiratory: Lungs have equal breath sounds bilaterally, clear to auscultation and percussion. No rales, rhonchi or wheezes noted. No increased work of breathing, no retractions or nasal flaring. 21:19 Skin: Warm, dry with normal turgor. Normal color with no rashes, no lesions, and no evidence of cellulitis. Neuro: Awake and alert, GCS 15, oriented to person, place, time, and situation. Cranial nerves II-XII grossly intact. Motor strength 5/5 in all extremities. Sensory grossly intact. Cerebellar exam normal. Normal gait. 21:19 Abdomen/GI: Inspection: abdomen appears normal, Bowel sounds: normal, Palpation: mild abdominal tenderness, in the right lower quadrant and left lower quadrant. Vital Signs: 20:17 BP 109 / 64; Pulse 63; Resp 20; Temp 98.0; Pulse Ox 100% ; Weight 142.88 kg; Height 5 kb3 ft. 5 in. (165.10 cm); Pain 8/10; 22:49 BP 93 / 64; Pulse 51; Resp 19; Pulse Ox 96% on R/A; ll3 01/18 00:15 BP 91 / 58; Pulse 58; Resp 20; Pulse Ox 98% on R/A; kl 00:47 BP 86 / 45; Pulse 52; Resp 18; Pulse Ox 97% on R/A; Pain 0/10; kl 01/17 20:17 Body Mass Index 52.42 (142.88 kg, 165.10 cm) kb3 MDM: 01/17 21:10 Patient medically screened. ms3 21:19 Differential diagnosis: diverticulitis, non-specific abd pain, urinary tract infection. ms3 01/18 00:35 Data reviewed: vital signs, nurses notes, lab test result(s), EKG, and as a result, I ms3 will discharge patient. Counseling: I had a detailed discussion with the patient and/or guardian regarding: the historical points, exam findings, and any diagnostic results supporting the discharge/admit diagnosis, lab results, radiology results, the need for outpatient follow up, to return to the emergency department if symptoms worsen or persist or if there are any questions or concerns that arise at home. Special discussion: I discussed with the patient/guardian in detail that at this point there is no indication for admission to the hospital. It is understood, however, that if the symptoms persist or worsen the patient needs to return immediately for re-evaluation. ED course: Discussed labs and radiology findings with patient. Patient to follow-up with her primary care physician to 3 days. Patient understands agrees with plan. Her questions were answered. Return cautions discussed include worsening symptoms, or any other concerns. On reevaluation patient is alert and oriented x4, no apparent distress, nontoxic, ambulatory in emergency department, speaking full sentences. 01/17 20:22 Order name: Urine Microscopic Only; Complete Time: 21:06 ms3 01/17 20:33 Order name: Urine Dipstick-Ancillary; Complete Time: 21:06 EDMS 01/17 21:10 Order name: CBC with Diff; Complete Time: 22:09 ms3 01/17 21:10 Order name: CMP; Complete Time: 22:54 ms3 01/17 21:10 Order name: Lipase; Complete Time: 22:54 ms3 01/17 22:55 Order name: Potassium; Complete Time: 00:16 ms3 01/17 20:22 Order name: Urine Dipstick-Ancillary (obtain specimen); Complete Time: 20:37 ms3 01/17 21:10 Order name: CT Abd/Pelvis - IV Contrast Only ms3 01/17 21:10 Order name: IV Saline Lock; Complete Time: 21:41 ms3 01/17 21:10 Order name: Labs collected and sent; Complete Time: 21:41 ms3 01/17 21:15 Order name: Abdomen ; Complete Time: 00:16 EDMS Administered Medications: 01/17 20:35 Drug: Zofran (Ondansetron) 4 mg Route: IVP; Site: left antecubital; kl 21:41 Drug: Pepcid (famotidine) 20 mg Route: IVP; Site: left antecubital; kl Disposition Summary: 01/18/22 00:35 Discharge Ordered Location: Home ms3 Condition: Stable ms3 Diagnosis - Lower abdominal pain, unspecified ms3 - Dysuria ms3 Followup: ms3 - With: Maged Murray MD - When: 2 - 3 days - Reason: Recheck today's complaints Discharge Instructions: - Discharge Summary Sheet ms3 - Abdominal Pain, Adult ms3 Forms: - Medication Reconciliation Form ms3 - Thank You Letter ms3 - Antibiotic Education ms3 - Prescription Opioid Use ms3 Signatures: Dispatcher [employer] EDMS Alyssa Patel, RN RN Miguel Sandhu DO DO ms3 Serena Vasquez, RN RN kb3
--- NOTE | 2022-01-18 00:36 | ER ---
Nurse's Notes [facility] Name: Tabatha Chambers Age: 56 yrs Sex: Female : 1965 Arrival Date: 01/17/2022 Time: 20:06 Bed 3 Private MD: Diagnosis: Lower abdominal pain, unspecified;Dysuria Presentation: 01/17 20:17 Chief complaint: Patient states: Pt reports pain with urination and right flank pain 10 kb3 days. PT has been taking Cipro x5 days with no relief. Coronavirus screen: Vaccine status: Patient reports being unvaccinated. Client denies travel out of the [place] in the last 14 days. Ebola Screen: Patient negative for fever greater than or equal to 101.5 degrees Fahrenheit, and additional compatible Ebola Virus Disease symptoms Patient denies exposure to infectious person. Patient denies travel to an Ebola-affected area in the 21 days before illness onset. Initial Sepsis Screen: Does the patient meet any 2 criteria? No. Patient's initial sepsis screen is negative. Does the patient have a suspected source of infection? No. Patient's initial sepsis screen is negative. Risk Assessment: Do you want to hurt yourself or someone else? Patient reports no desire to harm self or others. Onset of symptoms was January 06, 2022. 20:17 Method Of Arrival: Ambulatory kb3 20:17 Acuity: VERO 3 kb3 Triage Assessment: 20:19 General: Appears in no apparent distress. Behavior is calm, cooperative. Pain: kb3 Complains of pain in right low back Pain does not radiate. Pain currently is 8 out of 10 on a pain scale. 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 kb3 Historical: - Allergies: 20:19 No Known Allergies; kb3 - Home Meds: 01/18 00:48 albuterol sulfate 90 mcg/actuation Inhl HFAA 2 puffs every 4 hours for Bronchospasm kl Prevention [Active]; folic acid 1 mg Oral tab 1 tab once daily for Folate Deficiency [Active]; aspirin 81 mg Oral chew 1 tab once daily for Prevention of Transient Ischemic Attacks [Active]; melatonin 10 mg Oral cap nightly for sleep disorder [Active]; lisinopril 20 mg Oral tab 1 tab once daily for Hypertension [Active]; - PMHx: 01/17 20:19 Hypertension; Seizures; kb3 - PSHx: 20:19 ankle SX; Cholecystectomy; tubes tied; kb3 - Immunization history:: Adult Immunizations up to date, Client reports having NOT received the Covid vaccine. Last tetanus immunization: up to date. - Social history:: Smoking status: Patient denies any tobacco usage or history of. Screenin:37 Abuse screen: Denies threats or abuse. Nutritional screening: No deficits noted. kl Tuberculosis screening: No symptoms or risk factors identified. Fall Risk None identified. Assessment: 20:36 General: Appears in no apparent distress. comfortable, Behavior is calm, cooperative. kl Neuro: No deficits noted. Cardiovascular: No deficits noted. Respiratory: No deficits noted. GI: No deficits noted. No signs and/or symptoms were reported involving the gastrointestinal system. : Reports burning with urination, urgency. 22:49 Reassessment: No changes from previously documented assessment. Patient and/or family ll3 updated on plan of care and expected duration. Pain level reassessed. Patient is alert, oriented x 3, equal unlabored respirations, skin warm/dry/pink. 01/18 00:15 Reassessment: Patient appears in no apparent distress at this time. Patient and/or kl family updated on plan of care and expected duration. Pain level reassessed. Patient is alert, oriented x 3, equal unlabored respirations, skin warm/dry/pink. Vital Signs: 01/17 20:17 BP 109 / 64; Pulse 63; Resp 20; Temp 98.0; Pulse Ox 100% ; Weight 142.88 kg; Height 5 kb3 ft. 5 in. (165.10 cm); Pain 8/10; 22:49 BP 93 / 64; Pulse 51; Resp 19; Pulse Ox 96% on R/A; ll3 01/18 00:15 BP 91 / 58; Pulse 58; Resp 20; Pulse Ox 98% on R/A; kl 00:47 BP 86 / 45; Pulse 52; Resp 18; Pulse Ox 97% on R/A; Pain 0/10; kl 01/17 20:17 Body Mass Index 52.42 (142.88 kg, 165.10 cm) kb3 ED Course: 01/17 20:06 Patient arrived in ED. bp1 20:19 Triage completed. kb3 20:19 Arm band placed on right wrist. kb3 20:20 Pollard, Miguel, DO is Attending Physician. ms3 20:37 Urine Microscopic Only Sent. kl 21:41 No provider procedures requiring assistance completed. Inserted saline lock: 20 gauge kl in left antecubital area, using aseptic technique. 21:41 CBC with Diff Sent. kl 21:41 CMP Sent. kl 21:41 Lipase Sent. kl 22:28 No apparent distress. Resting quietly. Appears to be sleeping. kl 23:06 Abdomen In Process Unspecified. EDMS 01/18 00:35 Maged Murray MD is Referral Physician. ms3 00:48 IV discontinued, intact, bleeding controlled, No redness/swelling at site. Pressure kl dressing applied. 00:49 Patient has correct armband on for positive identification. kl Administered Medications: 01/17 20:35 Drug: Zofran (Ondansetron) 4 mg Route: IVP; Site: left antecubital; kl 21:41 Drug: Pepcid (famotidine) 20 mg Route: IVP; Site: left antecubital; Medication: 01/18 00:49 VIS not applicable for this client. Outcome: 00:35 Discharge ordered by . ms3 00:48 Discharged to home ambulatory. kl 00:48 Condition: good 00:48 Discharge instructions given to patient, Instructed on discharge instructions, follow up and referral plans. Demonstrated understanding of instructions, follow-up care. 00:49 Patient left the ED. Signatures: Dispatcher [employer] EDIN Alyssa Patel RN RN kl Sims, Marcus, DO DO ms3 Viky Landis Lynsea, RN RN 3 Serena Vasquez RN RN kb3
[2022-01-18 01:40] VITALS: TEMP 98
[2022-01-18 01:45] VITALS: BP 86/45; O2SAT 97
== END 2022-01-18 00:49 | disposition home or self-care (01) ==
LOC: ER 20:03
DX: R30.0 Dysuria (principal); I10 Essential (primary) hypertension; Z79.82 Long term (current) use of aspirin
CPT/HCPCS: 85025; 36415; 84132; 83690; 80053; 74177; 96375; 96374; 99284; Q9967; J2405; 81003; 81015

== ENCOUNTER 2022-02-02 18:07 | Emergency (ER) | payer OTHER ==
--- OUTSIDE RECORDS SUMMARY | 2022-02-02 18:17 | XMS REPORT | Continuity of Care Document ---
:1965 Author Organization [facility] t Address [address] [place] [address] Care Team Providers Name Role Phone PCP, PATIENT DOES NOT HAVE A Primary Care Physician UnavailJARAD Arteaga Attending Clinician Unavailable JARAD LÓPEZ Attending Clinician Unavailable Doctor Unassigned, [place] Attending Clinician Unavailable RAAD UREÑA Attending Clinician Unavailable Raad Ureña MD Attending Clinician CHRIS SPENCE Attending Clinician Unavailable ILIANA RUIZ Attending Clinician Unavailable Iliana Ruiz MD Attending Clinician Deloris Escobar Attending Clinician [phone] Shelly Taveras Attending Clinician Unavailable Antonietta Garcia Attending Clinician Unavailable Sarika Michael Attending Clinician Unavailable Gail oMrse Attending Clinician ILIANA RUIZ Admitting Clinician Unavailable Deloris Escobar Unavailable [phone] Payers Payer Name Policy Type Policy Number Effective Date Expiration Date S avery [facility] [employer] [id number] 2021 (MEDICARE 00:00:00 REPLACEMENT HMO) 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 c 15:36:56 l (disorder) dependence He nicki (disorder) Active Problem 07/12/2017 Medical Group Drug Drug Problem Active 2017-07-12 Ericor ia therapy therapy 15:36:56 l finding finding Ede (finding) (finding) Active Problem 07/12/2017 Medical Group Benzodiaze Benzodiaz Problem Resolve 2016-032017-07-12 2017-07-12 Memoria pine epine d 0-08 15:36:56 15:36:56 l dependence dependence 00:00: Sebastian nicki (disorder) (disorder) 00 Resolved 12/13/2016 Problem 07/12/2017 Medical Group Allergies, Adverse Reactions, Alerts Allergy Allergy Status Severity Reaction(s) Onset Inactive Treating Comm ents Source Name Type Date Date Clinician No Known DA Active U 2020-03 [facility] Drug 0-12 Allergie 00:00: s 00 NO KNOWN Drug Active Univers ALLERGIE Class ity of S [facility] Social History Social Habit Start Date Stop Date Quantity Comments Source Exposure to Not sure University of SARS-CoV-2 (event) [facility] Alcohol intake 2020-02-12 2020-02-12 University of 00:00:00 00:00:00 [facility] social history E&M 2019-02-14 2019-02-14 . mother [...] a divorce. Five kids Not homeless. City: [place] . lives with daughter Highest education level: [...] kids social history 2019-02-14 2019-02-14 [facility] reviewed E&M 13:01:12 13:01:12 Health Social History 2016-12-07 2016-12-07 Levar torres 16:49:19 16:49:19 Sex [birth year] At [birth year] Universit y of 00:00:00 00:00:00 [facility] Smoking Status Start Date Stop Date Source Current every day 2020-02-12 00:00:00 [facility] smoker Medical Branch Ex-smoker (finding) 2019-02-14 13:01:12 2019-02-14 13:01:12 [facility] Medications Ordered Filled Start Stop Current [...] 10 00:00: mg-240 mg 00 tablet,exte nded [id number] sertraline 1-0 No 2mg 100 mg 4-13 [...] 10 00:00: mg-240 mg 00 tablet,exte nded [id number] sertraline 1-0 No 2mg 100 mg 4-13 [...] uni 200 MG TABS 00:00: at bedtime [address] lisinopril 2017-0 Yes TAKE 1 Unive rs 10 mg 3-20 TABLET ity of tablet 00:00: EVERY DAY [facility] lisinopril 2017-0 Yes TAKE 1 Unive rs 10 mg 3-20 TABLET ity of tablet 00:00: EVERY DAY [facility] lisinopril 2017-0 Yes TAKE 1 Unive rs 10 mg 3-20 TABLET ity of tablet 00:00: EVERY DAY [facility] lisinopril 2017-0 Yes TAKE 1 Unive rs 10 mg 3-20 TABLET ity of tablet 00:00: EVERY DAY [facility] omeprazole 2017-0 Yes TAKE 1 Unive rs 40 mg 2-21 CAPSULE ity of capsule 00:00: EVERY DAY [facility] omeprazole 2017-0 Yes TAKE 1 Unive rs 40 mg 2-21 CAPSULE ity of capsule 00:00: EVERY DAY [facility] omeprazole 2017-0 Yes TAKE 1 Unive rs 40 mg 2-21 CAPSULE ity of capsule 00:00: EVERY DAY [facility] omeprazole 2017-0 Yes TAKE 1 Unive rs 40 mg 2-21 CAPSULE ity of capsule 00:00: EVERY DAY [facility] ibuprofen 2017-0 Yes TAKE 1 Univer s 800 mg 1-25 TABLET BY ity of tablet 00:00: MOUTH [place] TWICE A Medical DAY WITH Branch FOOD ibuprofen 2017-0 Yes TAKE 1 Univer s 800 mg 1-25 TABLET BY ity of tablet 00:00: MOUTH [place] TWICE A Medical DAY WITH Branch FOOD ibuprofen 2017-0 Yes TAKE 1 Univer s 800 mg 1-25 TABLET BY ity of tablet 00:00: MOUTH [place] TWICE A Medical DAY WITH Branch FOOD ibuprofen 2017-0 Yes TAKE 1 Univer s 800 mg 1-25 TABLET BY ity of tablet 00:00: MOUTH [place] TWICE A Medical DAY WITH Branch FOOD [...] 2 0-17 ity of mg tablet 00:00: [facility] zolpidem 2014-03 Yes Univers (AMBIEN) 10 0-17 ity of mg tablet 00:00: Medical Branch ALPRAZolam 2014-03 Yes Univers (XANAX) 2 0-17 ity of mg tablet 00:00: [facility] zolpidem 2014-03 Yes Univers (AMBIEN) 10 0-17 ity of mg tablet 00:00: [facility] ALPRAZolam 2014-03 Yes Univers (XANAX) 2 0-17 ity of mg tablet 00:00: [facility] zolpidem 2014-03 Yes Univers (AMBIEN) 10 0-17 ity of mg tablet 00:00: [facility] INVEGA 3 mg Yes Univer s 24 hr 8-21 ity of tablet 00:00: Medical Branch INVEGA 3 mg Yes Univer s 24 hr 8-21 ity of tablet 00:00: [facility] INVEGA 3 mg Yes Univer s 24 hr 8-21 ity of tablet 00:00: [facility] INVEGA 3 mg Yes Univer s 24 hr 8-21 ity of tablet 00:00: [facility] VENLAFAXINE Yes 1 Cap Oral Univers 150 MG ORAL 3-16 QAM WITH ity of CP24 00:00: BREAKFAST Medical Branch DIVALPROEX Yes 1 Tab Oral U nivers 500 MG ORAL 3-16 QAM, 2 Tab it y of TBEC 00:00: Oral QHS Medical Branch RISPERIDONE 2006-0 Yes 1 Tab Oral Univers 2 MG ORAL 3-16 BID ity of TAB 00:00: [facility] QUETIAPINE 2006- Yes 1 Tab Oral U nivers 200 MG ORAL 3-16 QHS ity of TAB 00:00: [facility] VENLAFAXINE Yes 1 Cap Oral Univers 150 MG ORAL 3-16 QAM WITH ity of CP24 00:00: BREAKFAST Medical Branch DIVALPROEX 0 Yes 1 Tab Oral U nivers 500 MG ORAL 3-16 QAM, 2 Tab it y of TBEC 00:00: Oral QHS Medical Branch RISPERIDONE 2007-0 Yes 1 Tab Oral Univers 2 MG ORAL 3-16 BID ity of TAB 00:00: [facility] QUETIAPINE 2007-0 Yes 1 Tab Oral U nivers 200 MG ORAL 3-16 QHS ity of TAB 00:00: [facility] VENLAFAXINE 2007-0 Yes 1 Cap Oral Univers 150 MG ORAL 3-16 QAM WITH ity of CP24 00:00: BREAKFAST Medical Branch DIVALPROEX 2007-0 Yes 1 Tab Oral U nivers 500 MG ORAL 3-16 QAM, 2 Tab it y of TBEC 00:00: Oral QHS Medical Branch RISPERIDONE 2007-0 Yes 1 Tab Oral Univers 2 MG ORAL 3-16 BID ity of TAB 00:00: [facility] QUETIAPINE 2007-0 Yes 1 Tab Oral U nivers 200 MG ORAL 3-16 QHS ity of TAB 00:00: [facility] VENLAFAXINE 2007-0 Yes 1 Cap Oral Univers 150 MG ORAL 3-16 QAM WITH ity of CP24 00:00: BREAKFAST Medical Branch DIVALPROEX 2007-0 Yes 1 Tab Oral U nivers 500 MG ORAL 3-16 QAM, 2 Tab it y of TBEC 00:00: Oral QHS Medical Branch RISPERIDONE 2007-0 Yes 1 Tab Oral Univers 2 MG ORAL 3-16 BID ity of TAB 00:00: [facility] QUETIAPINE 2007-0 Yes 1 Tab Oral U nivers 200 MG ORAL 3-16 QHS ity of TAB 00:00: [place] [address] [place] Vital Signs Vital Name Observation Time Observation Value Comments Source Systolic blood 2020-02-13 05:00:00 145 mm[Hg] Univer sity of [facility] Diastolic blood 2020-02-13 05:00:00 72 mm[Hg] Unive rsity of pressure [facility] Heart rate 2020-02-13 05:00:00 92 /min [facility] Oxygen saturation in 2020-02-13 05:00:00 99 /min [facility] Arterial blood by [facility] Pulse oximetry Branch Respiratory rate 2020-02-13 04:00:00 18 /min [facility] Body temperature 2020-02-13 01:09:00 36.67 Harmony [facility] Body weight 2020-02-13 01:09:00 125.646 kg Universi ty [facility] [place] BMI 2020-02-13 01:09:00 46.10 kg/m2 Universi ty [facility] Systolic blood 2020-02-13 05:00:00 145 mm[Hg] Univer sity of pressure [facility] Diastolic blood 2020-02-13 05:00:00 72 mm[Hg] Unive rsity of pressure [facility] Heart rate 2020-02-13 05:00:00 92 /min Universi ty [facility] Oxygen saturation in 2020-02-13 05:00:00 99 /min [facility] Arterial blood by [facility] Pulse oximetry Branch Respiratory rate 2020-02-13 04:00:00 18 /min [facility] 2020-02-13 01:09:00 36.67 [place] [facility] Body weight 2020-02-13 01:09:00 125.646 kg Universi ty [facility] BMI 2020-02-13 01:09:00 46.10 kg/m2 [facility] BP Systolic 2021-12-29 11:41:00 159 mm[Hg] [...] EXTERNAL PROVIDER RECORDS 2020-10-09 05:01:00 Doctor Unassigned, [facility] [place] [facility] URINALYSIS 2020-02-13 02:27:00 Iliana Ruiz [facility] ADC / LCC - DRUG SCREEN 2020-02-13 02:27:00 Iliana Ruiz Uni [facility] CT HEAD WO CONTRAST 2020-02-13 01:56:48 Iliana Ruiz [facility] EXTRA TUBE LT. BLUE 2020-02-13 01:37:00 Iliana Ruiz [facility] EXTRA TUBE SST 2020-02-13 01:37:00 Iliana Ruiz [facility] EXTRA TUBE LT. GREEN 2020-02-13 01:37:00 Iliana Ruiz [facility] XR CHEST 1 VW 2020-02-13 01:33:14 Iliana Ruiz [facility] TROPONIN I 2020-02-13 01:32:00 Iliana Ruiz [facility] COMP. METABOLIC PANEL 2020-02-13 01:32:00 Iliana Ruiz [facility] ([id number]) [facility] SALICYLATE 2020-02-13 01:32:00 Iliana Ruiz [facility] VALPROIC ACID, TOTAL 2020-02-13 01:32:00 Iliana Ruiz [facility] ETHANOL 2020-02-13 01:32:00 Iliana Ruiz [facility] CBC WITH DIFF 2020-02-13 01:32:00 Iliana Ruiz [facility] COVID-19 (ID NOW RAPID 2020-02-13 01:32:00 Iliana Ruiz [facility] TESTING) [facility] EXTERNAL PROVIDER RECORDS 2019-10-09 05:01:00 Doctor Unassigned, [facility] [place] [facility] Diagnostic evaluation with 2019-02-14 14:55:13 Deloris Escobar [facility] - [address] [facility] Operation 2003-03-08 00:00:00 Levar corea Cholecystectomy 2000-03-08 00:00:00 Levar corea Plan of Care Planned Activity Planned Date Details Comments Source Goal Plan of Care Note [code = 80962-2] Goal Plan of Care Note [code = 27507-7] Goal Plan of Care Note [code = 68042-4] Goal Plan of Care Note [code = 18058-0] Goal Plan of Care Note [code = 25929-1] Goal Plan of Care Note [code = 36640-0] Goal Plan of Care Note [code = 32418-7] Goal Plan of Care Note [code = 71550-5] Goal Plan of Care Note [code = 20331-2] Goal Plan of Care Note [code = 54362-1] Goal Plan of Care Note [code = 58392-9] Goal Plan of Care Note [code = 37021-6] Goal Plan of Care Note [code = 74882-2] Goal Plan of Care Note [code = 07600-9] Goal Plan of Care Note [code = 75849-8] Goal Plan of Care Note [code = 09549-1] Goal Plan of Care Note [code = 16246-0] Goal Plan of Care Note [code = 84687-8] Goal Plan of Care Note [code = 25820-0] Goal Plan of Care Note [code = 83727-6] Goal Plan of Care Note [code = 60156-2] Goal Plan of Care Note [code = 96901-6] Goal Plan of Care Note [code = 79664-9] Goal Plan of Care Note [code = 45099-8] Goal Plan of Care Note [code = 64604-7] Goal Plan of Care Note [code = 55060-5] Goal Plan of Care Note [code = 69783-6] Goal Plan of Care Note [code = 19489-0] Goal Plan of Care Note [code = 13353-3] Goal Plan of Care Note [code = 83300-4] Goal Plan of Care Note [code = 09372-9] Goal Plan of Care Note [code = 90781-8] Goal Plan of Care Note [code = 81181-0] Goal Plan of Care Note [code = 26429-9] Goal Plan of Care Note [code = 13072-9] Goal Plan of Care Note [code = 22514-6] Goal Plan of Care Note [code = 65230-6] Goal Plan of Care Note [code = 38390-1] Goal Plan of Care Note [code = 04989-6] Goal Plan of Care Note [code = 86298-2] Goal Plan of Care Note [code = 15230-0] Goal Plan of Care Note [code = 39227-5] Goal Plan of Care Note [code = 07522-6] Goal Plan of Care Note [code = 31746-5] Goal Plan of Care Note [code = 60327-6] Goal Plan of Care Note [code = 80655-7] Goal Plan of Care Note [code = 61937-1] Encounters Start End Encounter Admission Attending Care Care Encounter Source Date/Time Date/Time Type Type Clinicians Facility Department ID 2020-12-17 Inpatient [facility] [id number] [facility] 20:30:00 96 2020-12-17 Inpatient [facility] [id number] [facility] 20:30:00 96 2022-01-13 2022-01-13 Outpatient [facility] [id number] Fady 13:59:33 13:59:33 1108 F Jose E 2022-01-02 2022-01-02 Outpatient [id number] 00:00:00 00:00:00 Visit [id number] 2021-12-29 2021-12-29 Outpatient [facility] [id number] Fady 11:22:55 11:22:55 1024 F Jose E 2021-12-17 2021-12-17 Outpatient [facility] [id number] Fady 13:53:32 13:53:32 1012 F Jose E 2021-10-21 2021-10-21 Outpatient [id number] 00:00:00 00:00:00 Visit [id number] 2020-12-30 2020-12-30 Outpatient [facility] [id number] Devoted 08:02:00 08:02:00 [facility] Medica l Group 2020-10-29 2020-10-[address] [facility] [id number] Univers 13:40:00 13:40:00 JARAD LÓPEZ [facility] 2020-10-28 2020-10-[address] [facility] [id number] Univers 13:40:00 13:40:00 JARAD LÓPEZ [facility] 2020-10-15 2020-10-[address] [facility] [id number] Univers 13:00:00 13:00:00 JARAD LÓPEZ ity [facility] 2020-10-09 2020-10-09 Orders Doctor SARAH BETH [id number] Univers 00:00:00 00:00:00 Only Unassigned, [place] [id number] [facility] 4.2.7.2.686 Jean Marie as [id number] [facility] [address] [place] 2020-10-07 2020-10-07 [facility] [id number] Univers 15:30:00 15:30:00 RAAD garner [facility] 2020-10-03 2020-10-03 [facility] [id number] Univers 00:00:00 00:00:00 [facility] [id number] it y of [facility] 4.2.7.2.686 Jean Marie as Specialti [id number] Ny dical es 198 [facility] 2020-09-24 2020-09-24 [facility]patient [facility] [id number] Univers 15:45:00 15:45:00 CHRIS y [facility] 2020-02-12 2020-02-13 Emergency X [facility] [id number] Univers 19:02:00 [facility]:09:[facility] 2020-02-12 2020-02-13 Emergency [facility] [id number] Univers 19:02:00 00:09:00 Iliana [place]enton 350.1.13.10 ity of [place] 4.2.7.2.686 [facility] [id number] [address] 2020-02-12 2020-02-13 Emergency [facility] [id number] 19:02:00 00:09:00 Iliana [place]enton 350.1.13.10 [place] 4.2.7.2.686 [place] [id number] 2019-10-09 2019-10-09 Orders Doctor BURLESON [id number] Univers 00:00:00 00:00:00 Only Unassigned, [place] [id number] ity of [place] [facility] 4.2.7.2.686 Jean Marie as [id number] [address] 2019-10-09 2019-10-09 Orders Doctor SARAH BETH [id number] 00:00:00 00:00:00 Only Unassigned, [place] [id number] [place] [facility] 4.2.7.2.686 [id number] 2019-02-14 2019-02-14 Office Deloris Escobar [facility] Spence En counter/ Legacy 00:00:00 00:00:00 Visit Shelly Taveras [id number] [address] [place] [address] [id number] [facility] 2018-09-23 2018-09-23 Office Antonietta Garcia [facility] Legacy En counter/ Legacy 00:00:00 00:00:00 Visit [facility] Sarika [facility] [id number] [facility] [id number] [facility] Health Contact [place] 2018-09-23 2018-09-23 Office Alec [facility] Legacy Encoun ter/ Legacy 00:00:00 00:00:00 Visit Sarika [facility] [id number] [facility] 746201 [facility] 2017-04-05 2017-04-05 Ambulatory nullFlavo [facility] 3 [id number] Memoria 17:15:00 17:15:00 Pre-Reg r Medicine 02 cate zhou 2017-04-05 2017-04-05 Ambulatory nullFlavo [facility] Family 3 [id number] Memoria 17:15:00 17:15:00 Pre-Reg r Medicine 02 cate zhou 2017-04-05 2017-04-05 Outpatient [facility]IE [facility] [id number] Memoria 11:15:00 11:15:00 Adam Mera 2017-04-05 2017-04-05 Outpatient Morse, [facility] [id number] 11:15:00 11:15:00 Gail Medina 2017-03-26 2017-03-26 Ambulatory nullFlavo [facility] Family 3 [id number] Memoria 21:15:00 21:15:00 Pre-Reg r Medicine 01 cate Vazquez n 2017-03-26 2017-03-26 Ambulatory nullFlavo [facility] Family 3 [id number] Memoria 21:15:00 21:15:00 Pre-Reg r Medicine 01 cate Vazquez n 2017-03-26 2017-03-26 Outpatient BARRERA RUST [id number] Memoria 15:15:00 15:15:00 cate Mera 2017-03-26 2017-03-26 Outpatient Morse, [facility] [id number] 15:15:00 15:15:00 Gail N 2016-12-07 2016-12-07 Outpatient BARRERA RUST [id number] Memoria 11:00:00 11:00:00 00 cate Mera 2016-12-07 2016-12-07 Outpatient BARRERA BENNY [id number] Memoria 11:00:00 11:00:00 00 cate Mera [...] code = NRBCP) 0 % Comprehensive Metabolic [id number] 21:10:00 Test Item Value Reference Range Interpretation [...] 99 U/L 46-116 N = ALP) Ethanol [id number] 21:10:00 Test Item Value Reference Range Interpretation Comments Ethanol (test code = ETOH) < 3 mg/dL Coronavirus PCR, COVID19 [id number] 21:10:00 Test Item Value Reference Range Interpretation Comments Coronavirus PCR, For use under Emergency COVID19 Rapid (test Use Authorization (EUA) code = SARSCOV2) only. Coronavirus PCR, Reference Range: COVID19 Rapid (test Negative code = VCPPYDW94.1) SARS-CoV-2 PCR Result: Negative by PCR (test code = SARS-CoV-2 PCR Result:) COVID-19 Status: AsymptomaticCBC W/AUTO [id number] 00:00:00 Test Item Value Reference Range Interpretation [...] NUCLEATED RBCS (test code = 0.00 K/UL 25840) CBC W/AUTO [id number] 00:00:00 Test Item Value Reference Range Interpretation [...] NUCLEATED RBCS (test code = 0.00 K/UL 01026) CBC W/AUTO [id number] 00:00:00 Test Item Value Reference Range Interpretation [...] NUCLEATED RBCS (test code = 0.00 K/UL 12481) LIPID [id number] 00:00:00 Test Item Value Reference Range Interpretation Comments CHOLESTEROL (test code = 2210) 189 MG/DL TRIGLYCERIDES (test code = 2232) 135 MG/DL HDL CHOLESTEROL (test code = 2220) 64 MG/DL CALC LDL CHOL (test code = 2237) 102 MG/DL RISK RATIO LDL/HDL (test code = 1.59 RATIO 2238) LIPID [id number] 00:00:00 Test Item Value Reference Range Interpretation Comments CHOLESTEROL (test code = 2210) 189 MG/DL TRIGLYCERIDES (test code = 2232) 135 MG/DL HDL CHOLESTEROL (test code = 2220) 64 MG/DL CALC LDL CHOL (test code = 2237) 102 MG/DL RISK RATIO LDL/HDL (test code = 1.59 RATIO 2238) COMPREHENSIVE METABOLIC [id number] 00:00:00 Test Item Value Reference Range Interpretation Comments GLUCOSE (test code = 2217) 121 MG/DL BUN (test code = 2208) 22 MG/DL CREATININE (test code = 2214) 1.11 MG/DL eGFR AMER. (test code 66 ML/MIN/1.73 = 81288) eGFR NON- AMER. (test 57 ML/MIN/1.73 code = 39166) CALC BUN/CREAT (test code = 20 RATIO [...] code = 2219) 11 U/L COMPREHENSIVE METABOLIC [id number] 00:00:00 Test Item Value Reference Range Interpretation Comments GLUCOSE (test code = 2217) 121 MG/DL BUN (test code = 2208) 22 MG/DL CREATININE (test code = 2214) 1.11 MG/DL eGFR AMER. (test code 66 ML/MIN/1.73 = 88969) eGFR NON- AMER. (test 57 ML/MIN/1.73 code = 00832) CALC BUN/CREAT (test code = 20 RATIO [...] IRON BINDING CAPACITY AND IRON AND % [id number] 00:00:00 Test Item Value Reference Range Interpretation Comments IRON, SERUM (test code = 2221) 42 UG/DL UNSATURATED IBC (test code = ) 246 UG/DL CALC TOTAL IBC (test code = 2076) 288 UG/DL CALC % IRON SAT (test code = 2078) 15 % IRON BINDING CAPACITY AND IRON AND % [id number] 00:00:00 Test Item Value Reference Range Interpretation Comments IRON, SERUM (test code = 2221) 42 UG/DL UNSATURATED IBC (test code = 71270) 246 UG/DL CALC TOTAL IBC (test code = 2076) 288 UG/DL CALC % IRON SAT (test code = 2078) 15 % [id number] 00:00:00 Test Item Value Reference Range Interpretation Comments FERRITIN (test code = 5) 35 NG/ML [id number] 00:00:00 Test Item Value Reference Range Interpretation Comments FERRITIN (test code = 5) 35 NG/ML [id number] 00:00:00 Test Item Value Reference Range Interpretation Comments TRANSFERRIN (test code = 4936) 232 MG/DL [id number] 00:00:00 Test Item Value Reference Range Interpretation Comments TRANSFERRIN (test code = 4936) 232 MG/DL VITAMIN D, 25 [id number] 00:00:00 Test Item Value Reference Range Interpretation Comments VITAMIN D, 25 OH (test code = 4958) 15 NG/ML VITAMIN D, 25 [id number] 00:00:00 Test Item Value Reference Range Interpretation Comments VITAMIN D, 25 OH (test code = 4958) 15 NG/ML CBC W/AUTO [id number] 00:00:00 Test Item Value Reference Range Interpretation [...] NUCLEATED RBCS (test code = 0.00 K/UL 97014) CBC W/AUTO [id number] 00:00:00 Test Item Value Reference Range Interpretation [...] NUCLEATED RBCS (test code = 0.00 K/UL 96761) CBC W/AUTO [id number] 00:00:00 Test Item Value Reference Range Interpretation [...] NUCLEATED RBCS (test code = 0.00 K/UL 98828) LIPID [id number] 00:00:00 Test Item Value Reference Range Interpretation Comments CHOLESTEROL (test code = 2210) 189 MG/DL TRIGLYCERIDES (test code = 2232) 135 MG/DL HDL CHOLESTEROL (test code = 2220) 64 MG/DL CALC LDL CHOL (test code = 2237) 102 MG/DL RISK RATIO LDL/HDL (test code = 1.59 RATIO 2238) LIPID [id number] 00:00:00 Test Item Value Reference Range Interpretation Comments CHOLESTEROL (test code = 2210) 189 MG/DL TRIGLYCERIDES (test code = 2232) 135 MG/DL HDL CHOLESTEROL (test code = 2220) 64 MG/DL CALC LDL CHOL (test code = 2237) 102 MG/DL RISK RATIO LDL/HDL (test code = 1.59 RATIO 2238) COMPREHENSIVE METABOLIC [id number] 00:00:00 Test Item Value Reference Range Interpretation Comments GLUCOSE (test code = 2217) 121 MG/DL BUN (test code = 2208) 22 MG/DL CREATININE (test code = 2214) 1.11 MG/DL eGFR AMER. (test code 66 ML/MIN/1.73 = 37856) eGFR NON- AMER. (test 57 ML/MIN/1.73 code = 18733) CALC BUN/CREAT (test code = 20 RATIO [...] code = 2219) 11 U/L COMPREHENSIVE METABOLIC [id number] 00:00:00 Test Item Value Reference Range Interpretation Comments GLUCOSE (test code = 2217) 121 MG/DL BUN (test code = 2208) 22 MG/DL CREATININE (test code = 2214) 1.11 MG/DL eGFR AMER. (test code 66 ML/MIN/1.73 = 45471) eGFR NON- AMER. (test 57 ML/MIN/1.73 code = 33810) CALC BUN/CREAT (test code = 20 RATIO [...] IRON BINDING CAPACITY AND IRON AND % [id number] 00:00:00 Test Item Value Reference Range Interpretation Comments IRON, SERUM (test code = 2221) 42 UG/DL UNSATURATED IBC (test code = ) 246 UG/DL CALC TOTAL IBC (test code = 2076) 288 UG/DL CALC % IRON SAT (test code = 2078) 15 % IRON BINDING CAPACITY AND IRON AND % [id number] 00:00:00 Test Item Value Reference Range Interpretation Comments IRON, SERUM (test code = 2) 42 UG/DL UNSATURATED IBC (test code = 96082) 246 UG/DL CALC TOTAL IBC (test code = 7) 288 UG/DL CALC % IRON SAT (test code = 2078) 15 % [id number] 00:00:00 Test Item Value Reference Range Interpretation Comments FERRITIN (test code = 5) 35 NG/ML [id number] 00:00:00 Test Item Value Reference Range Interpretation Comments FERRITIN (test code = 2075) 35 NG/ML [id number] 00:00:00 Test Item Value Reference Range Interpretation Comments TRANSFERRIN (test code = 4936) 232 MG/DL [id number] 00:00:00 Test Item Value Reference Range Interpretation Comments TRANSFERRIN (test code = 4936) 232 MG/DL VITAMIN D, 25 [id number] 00:00:00 Test Item Value Reference Range Interpretation Comments VITAMIN D, 25 OH (test code = 4958) 15 NG/ML VITAMIN D, 25 [id number] 00:00:00 Test Item Value Reference Range Interpretation Comments VITAMIN D, 25 OH (test code = 4958) 15 NG/ML CT HEAD WO [id number] 04:01:33 No acute intracranial abnormality. Preliminary Report [...] have reviewed this study and agree withtheabove report.[facility]00 Test Item Value Reference Range Interpretation Comments APPEARANCE (test code = Turbid Clear A 7714327376) COLOR (test code = Roxy Yellow A 2319358985) PH (test code = 4.8-8.0 0015494201) SP GRAVITY (test code = 1.003-1.030 H 8537250060) GLU U QUAL (test code = Normal Normal 8143952678) BLOOD (test code = Negative Negative 3615131520) KETONES (test code = 20 mg/dL Negative A 5329998202) PROTEIN (test code = 30 mg/dL Negative A 2887-8) UROBILIN (test code = Normal Normal 6932371490) BILIRUBIN (test code = Negative Negative 1828516609) NITRITE (test code = Negative Negative 3351187478) LEUK MARKOS (test code = Negative Negative 7655418191) RBC/HPF (test code = See_Comment [Autom ated message] 0096686594) The system [employer] generated this result transmitted ref erence range: 0 - 3 HP F. The reference range was not used to int erpret this result as normal/abnormal . WBC/HPF (test code = See_Comment [Autom ated message] 3084833138) The system [employer] generated this result transmitted ref erence range: 0 - 5 HP F. The reference range was not used to int erpret this result as normal/abnormal . BACTERIA (test code = Many Negative A 7583026757) MUCOUS (test code = Moderate Negative LPF A 7512201594) HYAL CAST (test code = See_Comment H [Aut omated message] 1386267382) The system [employer] generated this result transmitted ref erence range: <=2 LPF. The reference range was not used to int erpret this result as normal/abnormal . GRAN CASTS (test code = See_Comment H [Au tomated message] 7199984976) The system [employer] generated this result transmitted ref erence range: <=1 LPF. The reference range was not used to int erpret this result as normal/abnormal . Lab Interpretation (test Abnormal code = 31017-5) General acute hospital / [facility] - DRUG SCREEN [id number] 03:00:00 Test Item Value Reference Range Interpretation Comments BENZO U (test code = Negative Negative 7209103334) JESSICA U (test code = Negative Negative 5729698896) AMPHET (test code = Negative Negative 6301129770) THC (test code = Negative Negative 6308415295) METHADONE (test code Negative Negative = 8124343499) Meth U (test code = Negative Negative 8384121909) OPIATES (test code = Negative Negative 4171119806) Cocaine Metabolite Negative Negative (test code = 9885670216) PROPOXY (test code = Negative Negative 6305631016) Tric U (test code = Presumptive Negative A Confirma tion of 5531592316) Positive Presumptive Positive TCA result requires physician order and this will b e sent to referen ce lab. PCP (test code = Negative Negative 2823365399) OXYCOD (test code = Negative Negative 4494791265) TULIO (test code = Urine Drug Cutoff [...] testing). Lab Interpretation Abnormal (test code = 59566-4) [facility] [id number] 02:55:00 Test Item Value Reference Range Interpretation Comments TROPONIN I (test <0.012 See_Comment [Automated code = 7189661163) message] The system which generated this result [...] ? Lab Interpretation Normal (test code = 77416-5) [facility]VAL[facility] ACID, [id number] 02:50:00 Test Item Value Reference Range Interpretation Comments VALPROIC A (test code = <10 50-100 L 8660161910) TULIO (test code = TULIO) Toxic Range: ?Greater than 100 ug/mL Lab Interpretation (test Abnormal code = 68950-9) [facility]AL[facility]2020-[facility] 02:45:00 Test Item Value Reference Range Interpretation Comments SALICYLATE (test code <10 mg/L = 3479670335) TULIO (test code = TULIO) Therapeutic Range: ? Analgesic and Antipyretic Use ? 20-100 mg/L ? ? Anti-Inflammatory Use ? 100-250 mg/L Toxic Range: ? Greater than 300 mg/L [facility]ETHANOL2020-12-08 02:45:00 Test Item Value Reference Range Interpretation Comments ALCOHOL (test code = <10 mg/dL 3699224712) TULIO (test code = TULIO) <10 [id number] Toxic>100 Depression of HEATING FIXTURE TENDER>400 Fatalities Reported [facility]ACETAMINOPHEN2020-12-08 02:44:00 Test Item Value Reference Range Interpretation Comments ACETAMINOP (test code = <10.0 10-30 L 5108832907) TULIO (test code = TULIO) Toxic: Greater than 200 ug/mL @ 4 hour post ingestion or greater than 50 ug/mL @ 12 hour post ingestion Lab Interpretation (test Abnormal code = 81629-6) [facility] HospitalCOM. METABOLIC PANEL (83504)2020-02-13 02:43:00 Test Item Value Reference Range Interpretation Comments NA (test code = 138 mmol/L 135-145 0837424626) K (test code = 5.1 mmol/L 3.5-5 H 9053414828) CL (test code = 106 mmol/L 98-108 5631217975) CO2 TOTAL (test code = 19 mmol/L 23-31 L 8908646884) AGAP (test code = 2-16 1019932114) BUN (test code = 26 mg/dL 7-23 H 3834410374) GLUCOSE (test code = 113 mg/dL 70-110 H 6925919039) CREATININE (test code = 1.20 mg/dL 0.5-1.04 H 9712158845) TOTAL BILI (test code = 0.5 mg/dL 0.1-1.9 3870041429) CALCIUM (test code = 10.4 mg/dL 8.6-10.6 1187367379) T PROTEIN (test code = 8.4 g/dL 6.3-8.2 H 6036142836) ALBUMIN (test code = 4.7 g/dL 3.5-5 5878098753) ALK PHOS (test code = 115 U/L 34-122 8655178433) ALTv (test code = 14 U/L 5-35 1742-6) AST(SGOT) (test code = 20 U/L 13-40 9049191082) eGFR Calculation mL/min/1.73m2 (Non-) (test code = 5929562677) eGFR Calculation mL/min/1.73m2 () (test code = 7093824197) TULIO (test code = TULIO) Association of [...] tests). Lab Interpretation Abnormal (test code = 83093-7) [facility] RAPID TESTING)2020-02-13 02:15:00 Test Item Value Reference Range Interpretation Comments SARS-CoV-2 Rapid ID NOW Not Detected Not Detected (test code = 17630-4) TULIO (test code = TULIO) ID NOW COVID-19 Assay is an isothermal nucleic acid amplification test intended for the qualitative detection of nucleic acid from SARS-CoV-2 viral RNA in nasopharyngeal ([employer]) specimens. It is used under Emergency Use [...] indicated. Lab Interpretation Normal (test code = 65026-2) [facility] WITH [id number] 01:53:00 Test Item Value Reference Range Interpretation Comments WBC (test code = See_Comment H [Automated 6281-2) message] The sy stem which generated this result transmitted reference range : 4.30 - 11.10 10*3/?L. The reference range was not used to interpret this result as normal/abnormal . RBC (test code = See_Comment [Automated 139-8) message] The sy stem which generated this [...] RDW-SD (test code = 43.3 fL 39-49.9 32318-1) RDW-CV (test code = 14.1 % 12-15.5 788-0) PLT (test code = See_Comment H [Automated 777-3) message] The sy stem which generated this result transmitted reference range : 166 - 358 10*3/ ?L. The reference r xochitl was not used to interpret this result as normal/abnormal . MPV (test code = 9.6 fL 9.5-12.9 68811-3) NRBC/100 WBC (test See_Comment [Automat ed code = 3773447762) message] The system which generated this result transmitted reference range : 0.0 - 10.0 /100 WBCs. The refer ence range was not u sed to interpret th is result as normal/abnormal . NRBC x10^3 (test code <0.01 See_Comment [Auto mated = 4558582477) message] The s ystem which generated this result transmitted reference range : 10*3/?L. The reference range was not used to interpret this result as normal/abnormal . GRAN MAT (NEUT) % 82.3 % (test code = 770-8) IMM GRAN % (test code 0.70 % = 9630618045) LYMPH % (test code = 12.5 % 736-9) MONO % (test code = 3.9 % 5905-5) EOS % (test code = 0.2 % 713-8) BASO % (test code = 0.4 % 706-2) GRAN MAT x10^3(ANC) 9.44 10*3/uL 1.88-7.09 H (test code = 7968085343) IMM GRAN x10^3 (test 0.08 10*3/uL 0-0.06 H code = 1893084265) LYMPH x10^3 (test code 1.43 10*3/uL 1.32-3.29 = 731-0) MONO x10^3 (test code 0.45 10*3/uL 0.33-0.92 = 742-7) EOS x10^3 (test code = <0.03 0.03-0.39 L 711-2) BASO x10^3 (test code 0.05 10*3/uL 0.01-0.07 = 704-7) Lab Interpretation Abnormal (test code = 91522-5) [facility] ([facility]OVID-19) by RT-PCR (HIGH RISK) 2019-09-22 00:00:00 Test Item Value Reference Range Interpretation Comments SARS-CoV-2 INTERPRETATION (test NEGATIVE code = 36094) SOURCE (test code = 50135) NOT SPECIFIED SARS-CoV-2 (COVID-19) by RT-PCR (HIGH RISK)2019-09-22 00:00:00 Test Item Value Reference Range Interpretation Comments SARS-CoV-2 INTERPRETATION (test NEGATIVE code = 81117) SOURCE (test code = 30600) NOT SPECIFIED SARS-CoV-2 (COVID-19) by RT-PCR (HIGH RISK)2019-09-22 00:00:00 Test Item Value Reference Range Interpretation Comments SARS-CoV-2 INTERPRETATION (test NEGATIVE code = 04484) SOURCE (test code = 85334) NOT SPECIFIED SARS-CoV-2 (COVID-19) by RT-PCR (HIGH RISK)2019-09-22 00:00:00 Test Item Value Reference Range Interpretation Comments SARS-CoV-2 INTERPRETATION (test NEGATIVE code = 05260) SOURCE (test code = 28619) NOT SPECIFIED DRUG SCREEN, [id number] 00:00:00 Test Item Value Reference Range Interpretation Comments AMPHETAMINES (test code = 78100) Negative BARBITURATES (test code = 09225) Negative BENZODIAZEPINES (test code = 75871) Positive COCAINE METABOLITE (test code = Negative 10316) METHADONE (test code = 07659) Negative OPIATES (test code = 029146) Negative PHENCYCLIDINE (test code = 063313) Negative PROPOXYPHENE (test code = 326816) Negative THC (CANNABIS) (test code = 434870) Negative ETHANOL (test code = 101102) Negative DRUG SCREEN, [id number] 00:00:00 Test Item Value Reference Range Interpretation Comments AMPHETAMINES (test code = 51987) Negative BARBITURATES (test code = 92541) Negative BENZODIAZEPINES (test code = 21806) Positive COCAINE METABOLITE (test code = Negative 87946) METHADONE (test code = 08513) Negative OPIATES (test code = 515064) Negative PHENCYCLIDINE (test code = 673101) Negative PROPOXYPHENE (test code = 535549) Negative THC (CANNABIS) (test code = 367690) Negative ETHANOL (test code = 390417) Negative DRUG SCREEN, [id number] 00:00:00 Test Item Value Reference Range Interpretation Comments AMPHETAMINES (test code = 51219) Negative BARBITURATES (test code = 38504) Negative BENZODIAZEPINES (test code = 93670) Positive COCAINE METABOLITE (test code = Negative 91650) METHADONE (test code = 20814) Negative OPIATES (test code = 711515) Negative PHENCYCLIDINE (test code = 731250) Negative PROPOXYPHENE (test code = 901450) Negative THC (CANNABIS) (test code = 543052) Negative ETHANOL (test code = 257616) Negative DRUG SCREEN, [id number] 00:00:00 Test Item Value Reference Range Interpretation Comments AMPHETAMINES (test code = 66176) Negative BARBITURATES (test code = 83865) Negative BENZODIAZEPINES (test code = 74827) Positive COCAINE METABOLITE (test code = Negative 31173) METHADONE (test code = 92048) Negative OPIATES (test code = 796245) Negative PHENCYCLIDINE (test code = 412409) Negative PROPOXYPHENE (test code = 045000) Negative THC (CANNABIS) (test code = 062492) Negative ETHANOL (test code = 884841) Negative BUPRENORPHINE AND [id number] 00:00:00 Test Item Value Reference Range Interpretation Comments NORBUPRENORPHINE (test code = <1.0 ng/mL 89390) BUPRENORPHINE (test code = 15421) <1.0 ng/mL BUPRENORPHINE AND [id number] 00:00:00 Test Item Value Reference Range Interpretation Comments NORBUPRENORPHINE (test code = <1.0 ng/mL 65266) BUPRENORPHINE (test code = 28912) <1.0 ng/mL BUPRENORPHINE AND [id number] 00:00:00 Test Item Value Reference Range Interpretation Comments NORBUPRENORPHINE (test code = <1.0 ng/mL 44328) BUPRENORPHINE (test code = 50909) <1.0 ng/mL BUPRENORPHINE AND [id number] 00:00:00 Test Item Value Reference Range Interpretation Comments NORBUPRENORPHINE (test code = <1.0 ng/mL 33779) BUPRENORPHINE (test code = 62025) <1.0 ng/mL COMPREHENSIVE METABOLIC [id number] 00:00:00 Test Item Value Reference Range Interpretation Comments GLUCOSE (test code = 2217) 105 MG/DL BUN (test code = 2208) 19 MG/DL CREATININE (test code = 2214) 0.94 MG/DL eGFR AMER. (test code 81 ML/MIN/1.73 = 51389) eGFR NON- AMER. (test 70 ML/MIN/1.73 code = 68352) CALC BUN/CREAT (test code = 20 RATIO [...] code = 2219) 18 U/L COMPREHENSIVE METABOLIC [id number] 00:00:00 Test Item Value Reference Range Interpretation Comments GLUCOSE (test code = 2217) 105 MG/DL BUN (test code = 2208) 19 MG/DL CREATININE (test code = 2214) 0.94 MG/DL eGFR AMER. (test code 81 ML/MIN/1.73 = 60749) eGFR NON- AMER. (test 70 ML/MIN/1.73 code = 71931) CALC BUN/CREAT (test code = 20 RATIO [...] code = 2219) 18 U/L COMPREHENSIVE METABOLIC [id number] 00:00:00 Test Item Value Reference Range Interpretation Comments GLUCOSE (test code = 2217) 105 MG/DL BUN (test code = 2208) 19 MG/DL CREATININE (test code = 2214) 0.94 MG/DL eGFR AMER. (test code 81 ML/MIN/1.73 = 88029) eGFR NON- AMER. (test 70 ML/MIN/1.73 code = 90703) CALC BUN/CREAT (test code = 20 RATIO [...] code = 2219) 18 U/L COMPREHENSIVE METABOLIC [id number] 00:00:00 Test Item Value Reference Range Interpretation Comments GLUCOSE (test code = 2217) 105 MG/DL BUN (test code = 2208) 19 MG/DL CREATININE (test code = 2214) 0.94 MG/DL eGFR AMER. (test code 81 ML/MIN/1.73 = 10377) eGFR NON- AMER. (test 70 ML/MIN/1.73 code = 15099) CALC BUN/CREAT (test code = 20 RATIO [...] code = 2219) 18 U/L DRUG SCREEN, [id number] 00:00:00 Test Item Value Reference Range Interpretation Comments AMPHETAMINES (test code = 55104) Negative BARBITURATES (test code = 15686) Negative BENZODIAZEPINES (test code = 01771) Negative COCAINE METABOLITE (test code = Negative 80978) METHADONE (test code = 94596) Negative OPIATES (test code = 718772) Negative PHENCYCLIDINE (test code = 248379) Negative PROPOXYPHENE (test code = 758358) Negative THC (CANNABIS) (test code = 469702) Negative ETHANOL (test code = 458022) Negative DRUG SCREEN, [id number] 00:00:00 Test Item Value Reference Range Interpretation Comments AMPHETAMINES (test code = 73772) Negative BARBITURATES (test code = 77679) Negative BENZODIAZEPINES (test code = 85876) Negative COCAINE METABOLITE (test code = Negative 89410) METHADONE (test code = 79987) Negative OPIATES (test code = 547661) Negative PHENCYCLIDINE (test code = 697333) Negative PROPOXYPHENE (test code = 540611) Negative THC (CANNABIS) (test code = 995084) Negative ETHANOL (test code = 117295) Negative DRUG SCREEN, [id number] 00:00:00 Test Item Value Reference Range Interpretation Comments AMPHETAMINES (test code = 73063) Negative BARBITURATES (test code = 39927) Negative BENZODIAZEPINES (test code = 27428) Negative COCAINE METABOLITE (test code = Negative 92771) METHADONE (test code = 29950) Negative OPIATES (test code = 087188) Negative PHENCYCLIDINE (test code = 265325) Negative PROPOXYPHENE (test code = 893017) Negative THC (CANNABIS) (test code = 733124) Negative ETHANOL (test code = 120885) Negative DRUG SCREEN, [id number] 00:00:00 Test Item Value Reference Range Interpretation Comments AMPHETAMINES (test code = 54429) Negative BARBITURATES (test code = 24559) Negative BENZODIAZEPINES (test code = 39089) Negative COCAINE METABOLITE (test code = Negative 99581) METHADONE (test code = 29076) Negative OPIATES (test code = 522519) Negative PHENCYCLIDINE (test code = 569657) Negative PROPOXYPHENE (test code = 960592) Negative THC (CANNABIS) (test code = 591117) Negative ETHANOL (test code = 013726) Negative CBC W/AUTO [id number] 00:00:00 Test Item Value Reference Range Interpretation [...] code = 1015) 307 K/UL CBC W/AUTO [id number] 00:00:00 Test Item Value Reference Range Interpretation [...] code = 1015) 307 K/UL CBC W/AUTO [id number] 00:00:00 Test Item Value Reference Range Interpretation [...] code = 1015) 307 K/UL CBC W/AUTO [id number] 00:00:00 Test Item Value Reference Range Interpretation [...] code = 1015) 307 K/UL CBC W/AUTO [id number] 00:00:00 Test Item Value Reference Range Interpretation [...] code = 1015) 307 K/UL CBC W/AUTO [id number] 00:00:00 Test Item Value Reference Range Interpretation [...] code = 1015) 307 K/UL DRUG SCREEN, [id number] 00:00:00 Test Item Value Reference Range Interpretation Comments AMPHETAMINES (test code = 75474) Negative BARBITURATES (test code = 26734) Negative BENZODIAZEPINES (test code = 90565) Positive COCAINE METABOLITE (test code = Negative 21993) METHADONE (test code = 60448) Negative OPIATES (test code = 130472) Negative PHENCYCLIDINE (test code = 485140) Negative PROPOXYPHENE (test code = 210824) Negative THC (CANNABIS) (test code = 220463) Negative ETHANOL (test code = 302826) Negative DRUG SCREEN, [id number] 00:00:00 Test Item Value Reference Range Interpretation Comments AMPHETAMINES (test code = 06413) Negative BARBITURATES (test code = 16717) Negative BENZODIAZEPINES (test code = 14249) Positive COCAINE METABOLITE (test code = Negative 08692) METHADONE (test code = 55913) Negative OPIATES (test code = 242280) Negative PHENCYCLIDINE (test code = 371977) Negative PROPOXYPHENE (test code = 248206) Negative THC (CANNABIS) (test code = 261012) Negative ETHANOL (test code = 554877) Negative DRUG SCREEN, [id number] 00:00:00 Test Item Value Reference Range Interpretation Comments AMPHETAMINES (test code = 31068) Negative BARBITURATES (test code = 87691) Negative BENZODIAZEPINES (test code = 56156) Positive COCAINE METABOLITE (test code = Negative 80451) METHADONE (test code = 64393) Negative OPIATES (test code = 211608) Negative PHENCYCLIDINE (test code = 570126) Negative PROPOXYPHENE (test code = 061306) Negative THC (CANNABIS) (test code = 339644) Negative ETHANOL (test code = 157384) Negative DRUG SCREEN, [id number] 00:00:00 Test Item Value Reference Range Interpretation Comments AMPHETAMINES (test code = 40411) Negative BARBITURATES (test code = 25231) Negative BENZODIAZEPINES (test code = 25836) Positive COCAINE METABOLITE (test code = Negative 48569) METHADONE (test code = 99833) Negative OPIATES (test code = 325619) Negative PHENCYCLIDINE (test code = 955122) Negative PROPOXYPHENE (test code = 688454) Negative THC (CANNABIS) (test code = 892639) Negative ETHANOL (test code = 395810) Negative BUPRENORPHINE AND [id number] 00:00:00 Test Item Value Reference Range Interpretation Comments NORBUPRENORPHINE (test code = 2.7 ng/mL 79241) BUPRENORPHINE (test code = 02511) 6.4 ng/mL BUPRENORPHINE AND [id number] 00:00:00 Test Item Value Reference Range Interpretation Comments NORBUPRENORPHINE (test code = 2.7 ng/mL 51789) BUPRENORPHINE (test code = 64112) 6.4 ng/mL BUPRENORPHINE AND [id number] 00:00:00 Test Item Value Reference Range Interpretation Comments NORBUPRENORPHINE (test code = 2.7 ng/mL 05472) BUPRENORPHINE (test code = 02063) 6.4 ng/mL BUPRENORPHINE AND [id number] 00:00:00 Test Item Value Reference Range Interpretation Comments NORBUPRENORPHINE (test code = 2.7 ng/mL 31676) BUPRENORPHINE (test code = 31506) 6.4 ng/mL COMPREHENSIVE METABOLIC PANEL [ADDED]2019-06-15 00:00:00 Test Item Value Reference Range Interpretation Comments GLUCOSE (test code = 2217) 112 MG/DL BUN (test code = 2208) 32 MG/DL CREATININE (test code = 2214) 1.18 MG/DL eGFR AMER. (test code 62 ML/MIN/1.73 = 37654) eGFR NON- AMER. (test 53 ML/MIN/1.73 code = 11799) CALC BUN/CREAT (test code = 27 RATIO [...] eGFR AMER. (test code 62 ML/MIN/1.73 = 67357) eGFR NON- AMER. (test 53 ML/MIN/1.73 code = 18643) CALC BUN/CREAT (test code = 27 RATIO [...] eGFR AMER. (test code 62 ML/MIN/1.73 = 29648) eGFR NON- AMER. (test 53 ML/MIN/1.73 code = 93350) CALC BUN/CREAT (test code = 27 RATIO [...] eGFR AMER. (test code 62 ML/MIN/1.73 = 44706) eGFR NON- AMER. (test 53 ML/MIN/1.73 code = 25846) CALC BUN/CREAT (test code = 27 RATIO [...] Comments HYDROXYALPRAZOLAM INTERP (test code Positive = 15195) HYDROXYALPRAZOLAM QNT (test code = 883 ng/mL 358110) LORAZEPAM INTERP (test code = Negative 78459) LORAZEPAM QNT (test code = 44693) <50 ng/mL OXAZEPAM INTERP (test code = 07455) Negative OXAZEPAM QNT (test code = 47544) <50 ng/mL TEMAZEPAM INTERP (test code = Negative 114831) TEMAZEPAM QNT (test code = 220190) <50 ng/mL NORDIAZEPAM INTERP (test code = Negative 48491) NORDIAZEPAM QNT (test code = 53511) <50 ng/mL BN-DGGBB-GJFGDIPRWD INTERP (test Negative code = 882449) UI-HNAWA-NZMYFXSWZJ QNT (test code <50 ng/mL = 066319) 7-AMINOCLONAZEPAM INTERP (test code Negative = 170816) 7-AMINOCLONAZEPAM QNT (test code = <50 ng/mL 662124) 7-AMINOFLUNITRAZEPAM INTERP (test Negative code = 175760) 7-AMINOFLUNITRAZEPAM QNT (test code <50 ng/mL = 092014) HYDROXYTRIAZOLAM INTERP (test code Negative = 462262) HYDROXYTRIAZOLAM QNT (test code = <50 ng/mL 060654) BENZODIAZEPINE, QUANT, URINE [REFLEX]2019-05-26 00:00:00 Test Item Value Reference Range Interpretation Comments HYDROXYALPRAZOLAM INTERP (test code Positive = 74353) HYDROXYALPRAZOLAM QNT (test code = 883 ng/mL 900857) LORAZEPAM INTERP (test code = Negative 79750) LORAZEPAM QNT (test code = 24683) <50 ng/mL OXAZEPAM INTERP (test code = 73731) Negative OXAZEPAM QNT (test code = 72467) <50 ng/mL TEMAZEPAM INTERP (test code = Negative 465878) TEMAZEPAM QNT (test code = 950380) <50 ng/mL NORDIAZEPAM INTERP (test code = Negative 82973) NORDIAZEPAM QNT (test code = 26432) <50 ng/mL VF-APQOT-WJJGFTYOTR INTERP (test Negative code = 596419) FM-SCJAP-NTNSBATOKX QNT (test code <50 ng/mL = 446926) 7-AMINOCLONAZEPAM INTERP (test code Negative = 781319) 7-AMINOCLONAZEPAM QNT (test code = <50 ng/mL 533560) 7-AMINOFLUNITRAZEPAM INTERP (test Negative code = 296601) 7-AMINOFLUNITRAZEPAM QNT (test code <50 ng/mL = 293715) HYDROXYTRIAZOLAM INTERP (test code Negative = 320500) HYDROXYTRIAZOLAM QNT (test code = <50 ng/mL 000273) BUPRENORPHINE, QUANT, URINE [REFLEX]2019-05-26 00:00:00 Test Item Value Reference Range Interpretation Comments BUPRENORPHINE INTERP (test code = Positive 24513) BUPRENORPHINE QNT (test code = 65 ng/mL 88584) BENZODIAZEPINE, QUANT, URINE [REFLEX]2019-05-26 00:00:00 Test Item Value Reference Range Interpretation Comments HYDROXYALPRAZOLAM INTERP (test code Positive = 70833) HYDROXYALPRAZOLAM QNT (test code = 883 ng/mL 866124) LORAZEPAM INTERP (test code = Negative 96998) LORAZEPAM QNT (test code = 74494) <50 ng/mL OXAZEPAM INTERP (test code = 50413) Negative OXAZEPAM QNT (test code = 14110) <50 ng/mL TEMAZEPAM INTERP (test code = Negative 981296) TEMAZEPAM QNT (test code = 659337) <50 ng/mL NORDIAZEPAM INTERP (test code = Negative 33563) NORDIAZEPAM QNT (test code = 31951) <50 ng/mL MO-KRXNV-OSDGODJSIZ INTERP (test Negative code = 847461) XR-PYXVW-HMNYEITINL QNT (test code <50 ng/mL = 149820) 7-AMINOCLONAZEPAM INTERP (test code Negative = 278835) 7-AMINOCLONAZEPAM QNT (test code = <50 ng/mL 201116) 7-AMINOFLUNITRAZEPAM INTERP (test Negative code = 400475) 7-AMINOFLUNITRAZEPAM QNT (test code <50 ng/mL = 159895) HYDROXYTRIAZOLAM INTERP (test code Negative = 037391) HYDROXYTRIAZOLAM QNT (test code = <50 ng/mL 534542) BENZODIAZEPINE, QUANT, URINE [REFLEX]2019-05-26 00:00:00 Test Item Value Reference Range Interpretation Comments HYDROXYALPRAZOLAM INTERP (test code Positive = 01186) HYDROXYALPRAZOLAM QNT (test code = 883 ng/mL 496757) LORAZEPAM INTERP (test code = Negative 33714) LORAZEPAM QNT (test code = 82868) <50 ng/mL OXAZEPAM INTERP (test code = 89966) Negative OXAZEPAM QNT (test code = 53144) <50 ng/mL TEMAZEPAM INTERP (test code = Negative 896831) TEMAZEPAM QNT (test code = 658487) <50 ng/mL NORDIAZEPAM INTERP (test code = Negative 40190) NORDIAZEPAM QNT (test code = 43939) <50 ng/mL [id number] INTERP (test Negative code = 270862) BI-QTION-BQSCNPHGLH QNT (test code <50 ng/mL = 446205) 7-AMINOCLONAZEPAM INTERP (test code Negative = 780805) 7-AMINOCLONAZEPAM QNT (test code = <50 ng/mL 723154) 7-AMINOFLUNITRAZEPAM INTERP (test Negative code = 590050) 7-AMINOFLUNITRAZEPAM QNT (test code <50 ng/mL = 604680) HYDROXYTRIAZOLAM INTERP (test code Negative = 186300) HYDROXYTRIAZOLAM QNT (test code = <50 ng/mL 793375) BUPRENORPHINE, QUANT, URINE [REFLEX]2019-05-26 00:00:00 Test Item Value Reference Range Interpretation Comments BUPRENORPHINE INTERP (test code = Positive 60851) BUPRENORPHINE QNT (test code = 65 ng/mL 70326) CBC W/AUTO [id number] 00:00:00 Test Item Value Reference Range Interpretation [...] code = 1015) 320 K/UL CBC W/AUTO [id number] 00:00:00 Test Item Value Reference Range Interpretation [...] code = 1015) 320 K/UL CBC W/AUTO [id number] 00:00:00 Test Item Value Reference Range Interpretation [...] code = 1015) 320 K/UL COMPREHENSIVE METABOLIC [id number] 00:00:00 Test Item Value Reference Range Interpretation Comments GLUCOSE (test code = 2217) 121 MG/DL BUN (test code = 2208) 25 MG/DL CREATININE (test code = 2214) 1.01 MG/DL eGFR AMER. (test code 75 ML/MIN/1.73 = 20175) eGFR NON- AMER. (test 64 ML/MIN/1.73 code = 46318) CALC BUN/CREAT (test code = 25 RATIO [...] code = 2219) 11 U/L COMPREHENSIVE METABOLIC [id number] 00:00:00 Test Item Value Reference Range Interpretation Comments GLUCOSE (test code = 2217) 121 MG/DL BUN (test code = 2208) 25 MG/DL CREATININE (test code = 2214) 1.01 MG/DL eGFR AMER. (test code 75 ML/MIN/1.73 = 21798) eGFR NON- AMER. (test 64 ML/MIN/1.73 code = 64246) CALC BUN/CREAT (test code = 25 RATIO [...] INTERPRETATION HEPATITIS B: (NOTE) (test code = 16326) INTERPRETATION HEPATITIS C: (NOTE) (test code = 65410) HEPATITIS PROFILE (A,B,C)2019-05-25 00:00:00 Test Item Value [...] INTERPRETATION HEPATITIS B: (NOTE) (test code = 35454) INTERPRETATION HEPATITIS C: (NOTE) (test code = 07716) HIV AB/AG COMBO RFLX [id number] 00:00:00 Test Item Value Reference Range Interpretation Comments HIV 1/2 4TH GEN, RFLX CONF (test NON-REACTIVE code = 3514) HIV AB/AG COMBO RFLX [id number] 00:00:00 Test Item Value Reference Range Interpretation Comments HIV 1/2 4TH GEN, RFLX CONF (test NON-REACTIVE code = 3514) DRUG ABUSE PANEL 10 WITH [id number] 00:00:00 Test Item Value Reference Range Interpretation Comments AMPHETAMINES (test code = NEGATIVE 3201) BARBITURATES (test code = NEGATIVE 3202) BENZODIAZEPINES (test code SEE REFLEX TESTING = 3203) CANNABINOIDS (test code = NEGATIVE 3204) COCAINE METABOLITE (test NEGATIVE code = 3205) OPIATES (test code = 3209) NEGATIVE OXYCODONE (test code = NEGATIVE 36224) PHENCYCLIDINE (test code = NEGATIVE 3210) METHADONE (test code = NEGATIVE 3207) BUPRENORPHINE (test code = SEE REFLEX TESTING 27716) DRUG ABUSE PANEL 10 WITH [id number] 00:00:00 Test Item Value Reference Range Interpretation Comments AMPHETAMINES (test code = NEGATIVE 3201) BARBITURATES (test code = NEGATIVE 3202) BENZODIAZEPINES (test code SEE REFLEX TESTING = 3203) CANNABINOIDS (test code = NEGATIVE 3204) COCAINE METABOLITE (test NEGATIVE code = 3205) OPIATES (test code = 3209) NEGATIVE OXYCODONE (test code = NEGATIVE 91089) PHENCYCLIDINE (test code = NEGATIVE 3210) METHADONE (test code = NEGATIVE 3207) BUPRENORPHINE (test code = SEE REFLEX TESTING 04697) CBC W/AUTO [id number] 00:00:00 Test Item Value Reference Range Interpretation [...] code = 1015) 320 K/UL CBC W/AUTO [id number] 00:00:00 Test Item Value Reference Range Interpretation [...] code = 1015) 320 K/UL CBC W/AUTO [id number] 00:00:00 Test Item Value Reference Range Interpretation [...] code = 1015) 320 K/UL COMPREHENSIVE METABOLIC [id number] 00:00:00 Test Item Value Reference Range Interpretation Comments GLUCOSE (test code = 2217) 121 MG/DL BUN (test code = 2208) 25 MG/DL CREATININE (test code = 2214) 1.01 MG/DL eGFR AMER. (test code 75 ML/MIN/1.73 = 35429) eGFR NON- AMER. (test 64 ML/MIN/1.73 code = 85302) CALC BUN/CREAT (test code = 25 RATIO [...] code = 2219) 11 U/L COMPREHENSIVE METABOLIC [id number] 00:00:00 Test Item Value Reference Range Interpretation Comments GLUCOSE (test code = 2217) 121 MG/DL BUN (test code = 2208) 25 MG/DL CREATININE (test code = 2214) 1.01 MG/DL eGFR AMER. (test code 75 ML/MIN/1.73 = 67028) eGFR NON- AMER. (test 64 ML/MIN/1.73 code = 96811) CALC BUN/CREAT (test code = 25 RATIO [...] INTERPRETATION HEPATITIS B: (NOTE) (test code = 32502) INTERPRETATION HEPATITIS C: (NOTE) (test code = 30035) HEPATITIS PROFILE (A,B,C)2019-05-25 00:00:00 Test Item Value [...] INTERPRETATION HEPATITIS B: (NOTE) (test code = 19082) INTERPRETATION HEPATITIS C: (NOTE) (test code = 11642) HIV AB/AG COMBO RFLX [id number] 00:00:00 Test Item Value Reference Range Interpretation Comments HIV 1/2 4TH GEN, RFLX CONF (test NON-REACTIVE code = 3514) HIV AB/AG COMBO RFLX [id number] 00:00:00 Test Item Value Reference Range Interpretation Comments HIV 1/2 4TH GEN, RFLX CONF (test NON-REACTIVE code = 3514) DRUG ABUSE PANEL 10 WITH [id number] 00:00:00 Test Item Value Reference Range Interpretation Comments AMPHETAMINES (test code = NEGATIVE 3201) BARBITURATES (test code = NEGATIVE 3202) BENZODIAZEPINES (test code SEE REFLEX TESTING = 3203) CANNABINOIDS (test code = NEGATIVE 3204) COCAINE METABOLITE (test NEGATIVE code = 3205) OPIATES (test code = 3209) NEGATIVE OXYCODONE (test code = NEGATIVE 59936) PHENCYCLIDINE (test code = NEGATIVE 3210) METHADONE (test code = NEGATIVE 3207) BUPRENORPHINE (test code = SEE REFLEX TESTING 48362) DRUG ABUSE PANEL 10 WITH [id number] 00:00:00 Test Item Value Reference Range Interpretation Comments AMPHETAMINES (test code = NEGATIVE 3201) BARBITURATES (test code = NEGATIVE 3202) BENZODIAZEPINES (test code SEE REFLEX TESTING = 3203) CANNABINOIDS (test code = NEGATIVE 3204) COCAINE METABOLITE (test NEGATIVE code = 3205) OPIATES (test code = 3209) NEGATIVE OXYCODONE (test code = NEGATIVE 45423) PHENCYCLIDINE (test code = NEGATIVE 3210) METHADONE (test code = NEGATIVE 3207) BUPRENORPHINE (test code = SEE REFLEX TESTING 66022)
[2022-02-02] MEDS ORDERED: CYCLOBENZAPRINE 10 MG TAB ONE (18:54)
[2022-02-02] MEDS ORDERED: KETOROLAC 30 MG/ML INJ ONE (18:54)
[2022-02-02 18:55] LABS: Urine Blood Negative (Negative); Urine Glucose Negative (Negative); Urine Protein Negative (Negative); Urine Specific Gravity >=1.030 (1.005-1.030)
--- NOTE | 2022-02-02 19:38 | ER ---
Nurse's Notes [facility] Name: Tabatha Chambers Age: 56 yrs Sex: Female : 1965 Arrival Date: 02/02/2022 Time: 18:11 Bed DIS2 Private MD: Diagnosis: Sciatica, left side Presentation: 02/02 18:33 Chief complaint: Patient states: chronic back pain, needs her shot from pain management iw but there is a problem with her insurance. Coronavirus screen: At this time, the client does not indicate any symptoms associated with coronavirus-19. Ebola Screen: Patient negative for fever greater than or equal to 101.5 degrees Fahrenheit, and additional compatible Ebola Virus Disease symptoms Patient denies exposure to infectious person. Patient denies travel to an Ebola-affected area in the 21 days before illness onset. No symptoms or risks identified at this time. Onset of symptoms was February 02, 2022. 18:33 Method Of Arrival: Ambulatory iw 18:33 Acuity: VERO 4 iw 20:27 Risk Assessment: Do you want to hurt yourself or someone else? Patient reports no pf1 desire to harm self or others. 20:28 Initial Sepsis Screen: Does the patient meet any 2 criteria? No. Patient's initial pf1 sepsis screen is negative. Does the patient have a suspected source of infection? No. Patient's initial sepsis screen is negative. 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-menopause pf1 Historical: - Home Meds: 20:29 albuterol sulfate 90 mcg/actuation Inhl HFAA 2 puffs every 4 hours for Bronchospasm pf1 Prevention [Active]; aspirin 81 mg Oral chew 1 tab once daily for Prevention of Transient Ischemic Attacks [Active]; folic acid 1 mg Oral tab 1 tab once daily for Folate Deficiency [Active]; lisinopril 20 mg Oral tab 1 tab once daily for Hypertension [Active]; melatonin 10 mg Oral cap nightly for sleep disorder [Active]; - PMHx: 18:37 Hypertension; Seizures; iw - PSHx: 18:37 Cholecystectomy; tubes tied; ankle SX; iw - Immunization history:: Adult Immunizations not up to date. - Social history:: unknown, Smoking status: unknown. Screenin:25 Abuse screen: Denies threats or abuse. Nutritional screening: No deficits noted. pf1 Tuberculosis screening: No symptoms or risk factors identified. Fall Risk Fall in past 12 months (25 points). Assessment: 20:24 General: Appears in no apparent distress. comfortable, well groomed, well developed, pf1 Behavior is calm, cooperative, appropriate for age, quiet. Pain: Complains of pain in Patient C/O sacrum pain for 1 week, S/P fall 1 week ago. Neuro: No deficits noted. 20:27 Neuro: Level of Consciousness is awake, alert, obeys commands, Oriented to person, pf1 place, time, situation, Balance Sheet Analyst are equal bilaterally Moves all extremities. Vital Signs: 18:37 BP 127 / 78; Pulse 61; Resp 18; Temp 98.1; Pulse Ox 98% on R/A; iw 20:30 BP 138 / 94; Pulse 63; Resp 18; Temp 97.6; Pulse Ox 95% ; Pain 8/10; pf1 ED Course: 18:11 Patient arrived in ED. rg4 18:26 Miguel Pollard DO is Attending Physician. ms3 18:34 Triage completed. iw 18:56 Genia Fournier, RN is Primary Nurse. iw 19:03 Attending Physician role handed off by Miguel Pollard DO rt 19:03 Rickie Alcocer MD is Attending Physician. rt 19:37 Wilson Wills MD is Referral Physician. ms3 19:39 Miguel Pollard DO is Attending Physician. ms3 20:25 Patient has correct armband on for positive identification. pf1 20:25 No provider procedures requiring assistance completed. Patient did not have IV access pf1 during this emergency room visit. 20:30 Arm band placed on right wrist. pf1 Administered Medications: 19:03 Drug: Ketorolac 15 mg Route: IM; Site: right deltoid; iw 19:45 Follow up: Response: No adverse reaction; Pain is decreased pf1 19:03 Drug: Flexeril (cyclobenzaprine) 10 mg Route: PO; iw 20:26 Follow up: Response: No adverse reaction; Pain is decreased pf1 20:26 Follow up: Response: No adverse reaction; Pain is decreased pf1 Medication: 20:30 VIS not applicable for this client. pf1 Outcome: 19:37 Discharge ordered by . ms3 20:27 Discharged to home ambulatory. pf1 20:27 Condition: improved 20:27 Discharge instructions given to patient, Instructed on discharge instructions, follow up and referral plans. medication usage, Demonstrated understanding of instructions, follow-up care, medications, Prescriptions given X 2. 20:31 Patient left the ED. pf1 Signatures: Genia Fournier, RN RN Smiley Ramirez rg4 Miguel Pollard DO DO ms3 Rickie Alcocer MD MD rt Anabell manriquez RN RN pf1
--- NOTE | 2022-02-02 19:38 | EDPHYS ---
Physician Documentation [facility] Name: Tabatha Chambers Age: 56 yrs Sex: Female : 1965 Arrival Date: 02/02/2022 Time: 18:11 Bed DIS2 Private MD: ED Physician Miguel Pollard HPI: 02/02 18:46 This 56 yrs old Female presents to ER via Ambulatory with complaints of Back ms3 Pain, Urinary symmptoms. 18:46 The patient presents with pain that is acute, with no known mechanism of injury. The ms3 symptoms are located in the low back. Onset: The symptoms/episode began/occurred 2 week(s) ago. The pain radiates to the left leg. Associated signs and symptoms: Pertinent negatives: abdominal pain, headache, hematuria, incontinence, numbness, tingling, urinary retention, vomiting. The problem was sustained chronic back pain. Modifying factors: The patient symptoms are alleviated by nothing, the patient symptoms are aggravated by sitting, laying down. Severity of symptoms: At their worst the symptoms were severe, in the emergency department the symptoms are unchanged. 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 - Post-menopause pf1 Historical: - Home Meds: 20:29 albuterol sulfate 90 mcg/actuation Inhl HFAA 2 puffs every 4 hours for Bronchospasm pf1 Prevention [Active]; aspirin 81 mg Oral chew 1 tab once daily for Prevention of Transient Ischemic Attacks [Active]; folic acid 1 mg Oral tab 1 tab once daily for Folate Deficiency [Active]; lisinopril 20 mg Oral tab 1 tab once daily for Hypertension [Active]; melatonin 10 mg Oral cap nightly for sleep disorder [Active]; - PMHx: 18:37 Hypertension; Seizures; iw - PSHx: 18:37 Cholecystectomy; tubes tied; ankle SX; iw - Immunization history:: Adult Immunizations not up to date. - Social history:: unknown, Smoking status: unknown. ROS: 18:46 Constitutional: Negative for fever, and chills. Neck: Negative for injury, pain, and ms3 swelling, Cardiovascular: Negative for chest pain, and palpitations. Respiratory: Negative for shortness of breath, cough, wheezing, and pleuritic chest pain, Abdomen/GI: Negative for abdominal pain, nausea, vomiting, diarrhea, and constipation. 18:46 Back: Positive for pain at rest, pain with movement, of the lumbar area. 18:46 All other systems are negative. Exam: 18:46 Constitutional: This is a well developed, well nourished patient who is awake, alert, ms3 and in no acute distress. Head/Face: Normocephalic, atraumatic. ENT: Nares patent. No nasal discharge, no septal abnormalities noted. Tympanic membranes are normal and external auditory canals are clear. Oropharynx with no redness, swelling, or masses, exudates, or evidence of obstruction, uvula midline. Mucous membranes moist. Neck: Trachea midline, no cervical lymphadenopathy. Supple, full range of motion without nuchal rigidity, or vertebral point tenderness. No Meningismus. Chest/axilla: Normal chest wall appearance and motion. Nontender with no deformity. Cardiovascular: Regular rate and rhythm with a normal S1 and S2. No gallops, murmurs, or rubs. Normal PMI, no JVD. No pulse deficits. Respiratory: Lungs have equal breath sounds bilaterally, clear to auscultation and percussion. No rales, rhonchi or wheezes noted. No increased work of breathing, no retractions or nasal flaring. Abdomen/GI: Soft, non-tender, with normal bowel sounds. No distension or tympany. No guarding or rebound. No evidence of tenderness throughout. 18:46 Back: pain, that is severe, ROM is normal, normal spinal alignment noted, CVA tenderness, is absent, vertebral tenderness, is not appreciated, muscle spasm, is appreciated in the left low back. Vital Signs: 18:37 BP 127 / 78; Pulse 61; Resp 18; Temp 98.1; Pulse Ox 98% on R/A; iw 20:30 BP 138 / 94; Pulse 63; Resp 18; Temp 97.6; Pulse Ox 95% ; Pain 8/10; pf1 MDM: 18:36 Patient medically screened. ms3 18:46 Differential diagnosis: Pyelonephritis muscle spasm, chronic back pain, uti. ms3 19:37 Data reviewed: vital signs, nurses notes, lab test result(s), and as a result, I will ms3 discharge patient. Counseling: I had a detailed discussion with the patient and/or guardian regarding: the historical points, exam findings, and any diagnostic results supporting the discharge/admit diagnosis, lab results, the need for outpatient follow up, to return to the emergency department if symptoms worsen or persist or if there are any questions or concerns that arise at home. ED course: Patient improved after Toradol and Flexeril, alert and oriented x4, in no apparent distress, nontoxic, ambulatory in the emergency department, without bowel or bladder incontinence, without numbness, without weakness. Patient to follow-up with her pain management doctor, Dr. House, and Dr. Patterson, for urinary frequency, urgency, dysuria, in 2 to 3 days. Patient understands and agrees with plan. All questions were answered. Return precautions discussed include worsening symptoms, or any other concerns. Patient given prescription for ibuprofen and Flexeril. 02/02 18:56 Order name: Urine Dipstick-Ancillary; Complete Time: 18:56 EDTX 02/02 18:45 Order name: Urine Dipstick-Ancillary (obtain specimen); Complete Time: 18:56 ms3 Administered Medications: 19:03 Drug: Ketorolac 15 mg Route: IM; Site: right deltoid; iw 19:45 Follow up: Response: No adverse reaction; Pain is decreased pf1 19:03 Drug: Flexeril (cyclobenzaprine) 10 mg Route: PO; iw 20:26 Follow up: Response: No adverse reaction; Pain is decreased pf1 20:26 Follow up: Response: No adverse reaction; Pain is decreased pf1 Disposition Summary: 02/02/22 19:37 Discharge Ordered Location: Home ms3 Condition: Stable ms3 Diagnosis - Sciatica, left side ms3 Followup: ms3 - With: - When: 2 - 3 days - Reason: Recheck today's complaints, Continuance of care Discharge Instructions: - Discharge Summary Sheet ms3 - Sciatica ms3 Forms: - Medication Reconciliation Form ms3 - Thank You Letter ms3 - Antibiotic Education ms3 - Prescription Opioid Use ms3 Prescriptions: - Ibuprofen 600 mg Oral Tablet - take 1 tablet by ORAL route every 6 hours As needed take with food; 30 tablet; ms3 Refills: 0, Product Selection Permitted - Cyclobenzaprine 5 mg Oral Tablet - take 1 tablet by ORAL route 3 times per day As needed; 15 tablet; Refills: 0, ms3 Product Selection Permitted Signatures: [facility] Genia Pat RN RN iw Miguel Pollard DO DO ms3 Anabell manriquez, RN RN pf1
[2022-02-02 21:10] VITALS: BP 138/94; TEMP 97.6; O2SAT 95
== END 2022-02-02 20:31 | disposition home or self-care (01) ==
LOC: ER 18:07
DX: M54.32 Sciatica, left side (principal); I10 Essential (primary) hypertension; Z79.82 Long term (current) use of aspirin
CPT/HCPCS: 81003; 96372; 99283

== ENCOUNTER 2022-03-04 13:49 | Emergency (ER) | payer OTHER ==
--- OUTSIDE RECORDS SUMMARY | 2022-03-04 14:00 | XMS REPORT | Continuity of Care Document ---
:1965 Author Organization [facility] t Address [address] [place] [address] Care Team Providers Name Role Phone PCP, PATIENT DOES NOT HAVE A Primary Care Physician UnavailJARAD Arteaga Attending Clinician Unavailable JARAD LÓPEZ Attending Clinician Unavailable Doctor Unassigned, [place] Attending Clinician Unavailable RAAD UREÑA Attending Clinician Unavailable Raad Ureña MD Attending Clinician CHRIS SPENCE Attending Clinician Unavailable ILIANA RUIZ Attending Clinician Unavailable Iliana Ruiz MD Attending Clinician Deloris Escobar Attending Clinician [phone] Shelly Taveras Attending Clinician Unavailable Antonietta Garcia Attending Clinician Unavailable Sarika Michael Attending Clinician Unavailable Gail Morse Attending Clinician ILIANA RUIZ Admitting Clinician Unavailable Deloris Escobar Unavailable [phone] Payers Payer Name Policy Type Policy Number Effective Date Expiration Date S [facility] [employer] [id number] 2021 (MEDICARE 00:00:00 REPLACEMENT HMO) [facility] [id number] 2016 MEDICAID 00:00:00 [facility] DUAL [id number] 2020 COMP HMO D SNP 00:00:00 Problems [...] psychotic 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 ICD10 features features 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 Problem Active 2017-07-12 Memoria [...] Seen by Seen by Problem Active 2017-07-12 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 [...] a divorce. Five kids Not homeless. City: [place] . lives with daughter Highest education level: [...] kids social history 2019-02-14 2019-02-14 reviewed today [facility] reviewed E&M 13:01:12 13:01:12 Health Social History 2016-12-07 2016-12-07 Levar torres 16:49:19 16:49:19 Sex [birth year] Universit y of 00:00:00 00:00:00 [facility] Smoking Status Start Date Stop Date Source Current every day 2020-02-12 00:00:00 [facility] smoker Medical Branch Ex-smoker (finding) 2019-02-14 13:01:12 2019-02-14 13:01:12 [facility] Medications Ordered Filled Start Stop Current Ordering Indication Dosage Frequency Signature Comments Components Source Medication Medication Date Date Medication? Clinician (SIG) Name Name TAKE 3 2021-03 No 300 CAPSULES BY 2-16 MOUTH IN 00:00: THE MORNING 00 Dose 2021-03 No Unknown 2-13 00:00: 00 Dose 2021-03 No Unknown 2-13 00:00: 00 CYCLOBENZAP 2021-03 No RINE 2-13 HYDROCHLORI 00:00: DE 5 MG 00 TABS QUETIAPINE 2021-03 No FUMARATE 50 2-13 MG TABS 00:00: 00 QUETIAPINE 2021-03 No FUMARATE 2-13 100 MG TABS 00:00: 00 Dose 2021-03 No Unknown 2-13 00:00: 00 Dose 2021-03 No Unknown 2-13 00:00: 00 SPRAY 2 2021-03 No SPRAYS INTO 2-13 EACH 00:00: NOSTRIL 00 EVERY DAY Dose 2021-03 No Unknown 2-13 00:00: 00 Dose 2021-03 No Unknown 2-13 00:00: 00 Dose 2021-03 No Unknown 2-13 00:00: 00 Dose 2021-03 No Unknown 2-13 00:00: 00 Dose 2021-03 No Unknown 2-13 00:00: 00 Dose 2021-03 No Unknown 2-13 00:00: 00 TAKE BY 2021-03 No 300 MOUTH 1 2-13 TABLET AT 00:00: BEDTIME FOR 00 PSYCHOSIS Dose 2021-03 No Unknown 2-13 00:00: 00 Dose 2021-03 No Unknown 2-13 00:00: 00 METHOCARBAM 2021-03 No OL 750 MG 2-13 TABS 00:00: 00 Dose 2021-03 No 300 Unknown 2-13 00:00: 00 Dose 2021-03 No Unknown 2-13 00:00: 00 BENZTROPINE 2021-03 No MESYLATE 1 2-13 MG TABS 00:00: 00 Dose 2021-03 No Unknown 2-13 00:00: 00 Dose 2021-03 No Unknown 2-13 00:00: 00 Dose 2021-03 No Unknown 2-13 00:00: 00 TAKE 2021-03 No TABLET BY 2-13 MOUTH EVERY 00:00: DAY 00 Suboxone 8 2021-03 No mg-2 mg 2-13 sublingual 00:00: film 00 PROAIR HFA 2021-03 No 108 (90 2-13 Base) 00:00: MCG/ACT 00 AERS CALL 911. 2021-03 No SPR 2-13 CONTENTS OF 00:00: ONE SPRAYER 00 (0.1ML) INTO ONE NOSTRIL. REPEAT IN 2-3 MIN IF SYMPTOMS OF OPIOID EMERGENCY PERSIST, ALTERNATE NOSTRILS FUROSEMIDE 2021-03 No 20 MG TABS 2-13 00:00: 00 PROPRANOLOL 2021-03 No HYDROCHLORI 2-13 DE 20 MG 00:00: TABS 00 TAKE 2021-03 No TABLET BY 2-13 MOUTH TWICE 00:00: A DAY 00 TAKE 2021-03 No TABLET BY 2-13 MOUTH TWICE 00:00: A DAY 00 OLANZAPINE 2021-03 No ODT 15 MG 2-13 TBDP 00:00: 00 TAKE 2021-03 No TABLET BY 2-13 MOUTH 3 00:00: TIMES A 00 DAY. ATORVASTATI 2021-03 No 300 N CALCIUM 2-13 20 MG TABS 00:00: 00 TAKE 2021-03 No CAPSULE BY 2-13 MOUTH EVERY 00:00: DAY DO NOT 00 CRUSH OR CHEW HYDROXYZINE 2021-03 No PAMOATE 25 2-13 MG CAPS 00:00: 00 Dose 2021-03 No Unknown 2-13 00:00: 00 QUETIAPINE 2021-03 No FUMARATE 2-13 300 MG TABS 00:00: 00 Dose 2021-03 No Unknown 2-13 00:00: 00 TAKE 2021-03 No TABLET (1 2-13 MG TOTAL) 00:00: BY MOUTH 1 00 (ONE) TIME EACH DAY IF NEEDED FOR ANXIETY Dose 2021-03 No Unknown 2-13 00:00: 00 Dose 2021-03 No Unknown 2-13 00:00: 00 SUBOXONE 2021-03 No 8-2 MG FILM 2-13 00:00: 00 Dose 2021-03 No Unknown 2-13 00:00: 00 TAKE 2021-03 No TABLET BY 2-13 MOUTH TWICE 00:00: A DAY 00 Dose 2021-03 No Unknown 2-13 00:00: 00 TAKE 2021-03 No TABLET BY 2-13 MOUTH AT 00:00: NIGHT IF 00 NEEDED FOR SLEEP. spironolact 2021-03 No one 25 2-13 mg-hydrochl 00:00: orothiazide 00 25 mg tablet DIVALPROEX 2021-[address] 2-13 500 MG TBEC 00:00: 00 PROPRANOLOL 2021-03 No 300 HYDROCHLORI 2-13 DE 10 MG 00:00: TABS 00 POTASSIUM 2021-03 No CHLORIDE ER 2-13 10 MEQ TBCR 00:00: 00 Dose 2021-03 No Unknown 2-13 00:00: 00 TAKE 2021-03 No TABLET BY 2-13 MOUTH EVERY 00:00: DAY AT 00 NIGHT LEVETIRACET 2021-03 No AM 500 MG 2-13 TABS 00:00: 00 DICLOFENAC 2021-[address] 2-13 75 MG TBEC 00:00: 00 TAKE 2021-03 No TABLET BY 2-13 MOUTH EVERY 00:00: 6 HOURS 00 NEEDED FOR PAIN TAKE 2021-03 No TABLET 2-13 TWICE DAILY 00:00: WITH FOOD. 00 TAKE 2021-03 No TABLET BY 2-13 MOUTH TWICE 00:00: A DAY 00 Dose 2021-03 No Unknown 2-13 00:00: 00 TAKE 2021-03 No TABLET BY 2-13 MOUTH AT 00:00: BEDTIME 00 HALOBETASOL 2021-03 No PROPIONATE 2-13 0.05 % OINT 00:00: 00 TAKE 2021-03 No TABLET BY 2-13 MOUTH TWICE 00:00: A DAY 00 TAKE 2021-03 No TABLET BY 2-13 MOUTH TWICE 00:00: A DAY 00 Dose 2021-03 No Unknown 2-13 00:00: 00 TAKE ONE 2021-03 No CAPSULE BY 2-13 MOUTH EVERY 00:00: 6 HOURS 00 NEEDED FOR ALLERGIES OR ANXIETY Dose 2021-03 No Unknown 2-13 00:00: 00 TAKE 2021-03 No TABLET BY 2-13 MOUTH THREE 00:00: TIMES A DAY 00 TAKE 2021-03 No TABLET BY 2-06 MOUTH ON 00:00: WEDNESDAY, 00 WEDNESDAY, WEDNESDAY TAKE 2021-03 No TABLET BY 2-06 MOUTH TWICE 00:00: A DAY 00 NEEDED FOR MUSCLE SPASM TIZANIDINE 2021-03 No HYDROCHLORI 2-05 DE 4 MG 00:00: TABS 00 LITHIUM 2021-03 No 300 CARBONATE 0-24 300 MG CAPS 00:00: 00 Dose 2021-03 No Unknown 0-24 00:00: 00 Dose 2021-03 No Unknown 0-24 00:00: 00 ALPRAZOLAM 2021-03 No 1 MG TABS 0-24 00:00: 00 Dose 2021-03 No Unknown 0-12 00:00: 00 LISINOPRIL 2021-03 No 20 MG TABS 0-12 00:00: 00 Dose 2021-03 No Unknown 0-12 00:00: 00 LISINOPRIL 2021-03 No 20 MG TABS 0-12 00:00: 00 Dose 0 No Unknown 9-09 00:00: 00 Dose 2021-0 No Unknown 9-09 00:00: 00 TAKE No 82 STRIP THREE 9-05 TIMES A DAY 00:00: 00 TAKE No STRIP THREE 9-05 TIMES A DAY 00:00: 00 Dose 2021-0 No Unknown 8-22 00:00: 00 Dose 2021-0 No Unknown 8-22 00:00: 00 Dose 2021-0 No Unknown 8-22 00:00: 00 &lt 2-0 No 8-15 00:00: 00 &lt 2021-0 No 8-15 00:00: 00 LIDOCAINE/P 2021-0 No RILOCAINE 8-15 2.5-2.5 % 00:00: CREA 00 &lt 2021-0 No 10 8-12 00:00: 00 ZOLPIDEM 2021-0 No TARTRATE 10 8-12 MG TABS 00:00: 00 ZOLPIDEM 2022-0 No TARTRATE 10 8-12 MG TABS 00:00: 00 &lt 2022-0 No 8-11 00:00: 00 Dose 2022-0 No Unknown 8 00:00: 00 Dose 2022-0 No 200 Unknown 8 00:00: 00 &lt 2022-0 No 10 8- 00:00: 00 TAKE 1 2-0 No 1 TABLET (1 8-11 MG TOTAL) 00:00: BY MOUTH 1 00 (ONE) TIME EACH DAY IF NEEDED FOR ANXIETY &lt 2022-0 No 8-11 00:00: 00 &lt 2022-0 No 60 8- 00:00: 00 &lt 2022-0 No 8- 00:00: 00 Dose 2022-0 No Unknown 10-16 00:00: 00 Dose 2022-0 No 200 Unknown 10-16 00:00: 00 &lt 2022-0 No 10 8 00:00: 00 TAKE 1 2-0 No 1 TABLET (1 8-11 MG TOTAL) 00:00: BY MOUTH 1 00 (ONE) TIME EACH DAY IF NEEDED FOR ANXIETY &lt 2022-0 No 8- 00:00: 00 &lt 2022-0 No 60 8 00:00: 00 &lt 2022-0 No 8- 00:00: 00 Dose 2022-0 No Unknown 10-16 00:00: 00 Dose 2022-0 No 200 Unknown 10-16 00:00: 00 &lt 2022-0 No 10 10-16 00:00: 00 TAKE 1 2-0 No 1 TABLET (1 8-11 MG TOTAL) 00:00: BY MOUTH 1 00 (ONE) TIME EACH DAY IF NEEDED FOR ANXIETY FLUTICASONE 2-0 No 300 PROPIONATE 8 50 MCG/ACT 00:00: SUSP 00 Dose 2022-0 No Unknown 10-16 00:00: 00 TAKE 1 2-0 No 4 TABLET BY 8-10 MOUTH TWICE 00:00: A DAY 00 NEEDED FOR MUSCLE SPASMS TAKE 1 2-0 No 4 TABLET BY 8-10 MOUTH TWICE 00:00: A DAY 00 NEEDED FOR MUSCLE SPASMS TAKE 1 2-0 No 4 TABLET BY 8-10 MOUTH TWICE 00:00: A DAY 00 NEEDED FOR MUSCLE SPASMS TAKE 1 2022-0 No 60 CAPSULE BY 8-09 MOUTH EVERY 00:00: DAY FOR 00 DEPRESSION. DO NOT CRUSH OR CHEW TAKE 1 2021-0 No 60 CAPSULE BY 8-09 MOUTH EVERY 00:00: DAY FOR 00 DEPRESSION. DO NOT CRUSH OR CHEW TAKE 1 2021-0 No 60 CAPSULE BY 8-09 MOUTH EVERY 00:00: DAY FOR 00 DEPRESSION. DO NOT CRUSH OR CHEW Suboxone 8 0 No 1mg mg-2 mg 8- sublingual 00:00: film 00 &lt 2021-0 No 300 10-07 00:00: 00 TAKE 1 2021-0 No 100 TABLET BY 8- MOUTH AT 00:00: BEDTIME FOR 00 INSOMNIA Dose 2021-0 No 200 Unknown 10-07 00:00: 00 TAKE 1 2021-0 No 1 TABLET (1 8-02 MG TOTAL) 00:00: BY MOUTH 2 00 (TWO) TIMES A DAY IF NEEDED FOR ANXIETY Dose 2021-0 No Unknown 10-07 00:00: 00 TAKE 1 2021-0 No 10 TABLET BY 8- MOUTH AT 00:00: NIGHT IF 00 NEEDED FOR SLEEP. &lt 2021-0 No 500 10-07 00:00: 00 &lt 2022-0 No 20 10-07 00:00: 00 Suboxone 8 0 No 1mg mg-2 mg - sublingual 00:00: film 00 &lt 2021-0 No 300 10-07 00:00: 00 TAKE 1 2021-0 No 100 TABLET BY 8- MOUTH AT 00:00: BEDTIME FOR 00 INSOMNIA Dose 2021-0 No 200 Unknown 10-07 00:00: 00 TAKE 1 2021-0 No 1 TABLET (1 8-02 MG TOTAL) 00:00: BY MOUTH 2 00 (TWO) TIMES A DAY IF NEEDED FOR ANXIETY Dose 2-0 No Unknown 10-07 00:00: 00 TAKE 1 2021-0 No 10 TABLET BY 8-02 MOUTH AT 00:00: NIGHT IF 00 NEEDED FOR SLEEP. &lt 2022-0 No 500 10-07 00:00: 00 &lt 2022-0 No 20 10-07 00:00: 00 Dose 2022-0 No Unknown 10-07 00:00: 00 &lt 2022-0 No 300 10-07 00:00: 00 TAKE 1 2022-0 No 100 TABLET BY 8 MOUTH AT 00:00: BEDTIME FOR 00 INSOMNIA Dose 2022-0 No 200 Unknown 10-07 00:00: 00 TAKE 1 2022-0 No 1 TABLET (1 8-02 MG TOTAL) 00:00: BY MOUTH 2 00 (TWO) TIMES A DAY IF NEEDED FOR ANXIETY Dose 2022-0 No Unknown 10-07 00:00: 00 TAKE 1 2022-0 No 10 TABLET BY 10-07 MOUTH AT 00:00: NIGHT IF 00 NEEDED FOR SLEEP. &lt 2022-0 No 500 10-07 00:00: 00 &lt 2022-0 No 20 10-07 00:00: 00 &lt 2022-0 No 1 10-06 00:00: 00 &lt 2022-0 No 1 10-06 00:00: 00 &lt 2022-0 No 1 10-06 00:00: 00 TAKE 1 2022-0 No 100 TABLET BY 09-30 MOUTH 3 00:00: TIMES A 00 DAY. &lt 2022-0 No 10 09-30 00:00: 00 TAKE 1 2022-0 No 4 TABLET BY 7 MOUTH TWICE 00:00: A DAY 00 NEEDED FOR MUSCLE SPASM &lt 2022-0 No 09-30 00:00: 00 &lt 2022-0 No 60 09-30 00:00: 00 TAKE 1 2-0 No 100 TABLET BY 09-30 MOUTH 3 00:00: TIMES A 00 DAY. &lt 2022-0 No 10 09-30 00:00: 00 TAKE 1 2022-0 No 4 TABLET BY 7 MOUTH TWICE 00:00: A DAY 00 NEEDED FOR MUSCLE SPASM &lt 2022-0 No 09-30 00:00: 00 &lt 2022-0 No 60 09-30 00:00: 00 TAKE 1 2022-0 No 100 TABLET BY 7 MOUTH 3 00:00: TIMES A 00 DAY. &lt 2022-0 No 10 09-30 00:00: 00 TAKE 1 2022-0 No 4 TABLET BY 7- MOUTH TWICE [...] SPIT DO NOT 00 SWALLOW Suboxone 8 2021-0 No 1mg mg-2 mg 6-28 sublingual 00:00: film 00 &lt 2022-0 No 6-28 00:00: 00 Dose 2022-0 No Unknown 6-28 00:00: 00 &lt 2022-0 No 6-28 00:00: 00 RINSE WITH 2022-0 No 1 CAPFUL 6-28 TWICE A DAY 00:00: SPIT DO NOT 00 SWALLOW Dose 2022-0 No Unknown 6-28 00:00: 00 &lt 2022-0 No 6-28 00:00: 00 Dose 2022-0 No Unknown 6-28 00:00: 00 &lt 2022-0 No 6-28 00:00: 00 RINSE WITH 2022-0 No 1 CAPFUL 6-28 TWICE A DAY 00:00: SPIT DO NOT 00 SWALLOW SPRAY 2 2021-0 No SPRAYS INTO 6-05 EACH 00:00: NOSTRIL 00 EVERY DAY SPRAY 2 2021-0 No SPRAYS INTO 6-05 EACH 00:00: NOSTRIL 00 EVERY DAY SPRAY 2 2021-0 No SPRAYS INTO 6-05 EACH 00:00: NOSTRIL 00 EVERY DAY Suboxone 8 2-0 No 1mg mg-2 mg [...] 00:00: film 00 Dose 2022-0 No Unknown 4-12 00:00: 00 Dose 2022-0 No Unknown 3-10 00:00: 00 Dose 2022-0 No Unknown 3-10 00:00: 00 Dose 2-0 No Unknown 3-10 00:00: 00 Dose 2-0 No Unknown 3-09 00:00: 00 Dose 2-0 No Unknown 3-09 00:00: 00 Dose 2-0 No Unknown 3-09 00:00: 00 Dose 2-0 No Unknown 3-09 00:00: 00 Dose 2022-0 No Unknown 3-09 00:00: 00 Dose 2-0 No Unknown 3-09 00:00: 00 Dose 2022-0 [...] No Unknown 1-19 00:00: 00 Suboxone 8 1-1 No 1mg mg-2 mg 2-16 sublingual 00:00: film 00 Suboxone 8 1-1 No 1mg mg-2 mg 2-16 sublingual 00:00: film 00 Suboxone 8 1-1 No 1mg mg-2 mg 2-16 sublingual 00:00: film 00 Suboxone 8 1-1 No 1mg mg-2 mg 1-16 sublingual 00:00: film 00 Suboxone 8 1-1 No 1mg mg-2 mg 1-16 sublingual 00:00: film 00 Suboxone 8 1-1 No 1mg mg-2 mg 1-16 sublingual 00:00: [...] mg 9-21 sublingual 00:00: film 00 Dose 1-0 No [...] 1mg 10 mg 8-20 tablet 00:00: 00 Latuda 60 2021-0 No 1mg mg tablet 8-20 00:00: 00 Dose 2021-0 No Unknown 8-20 00:00: 00 lithium 2021-0 No 3mg carbonate 8-20 300 mg 00:00: capsule 00 Dose 2021-0 No Unknown 8-20 00:00: 00 hydroxyzine 2021-0 No 12mg HCl 50 [...] alprazolam 2021-0 No mg 1 mg tablet 10-18 00:00: 00 alprazolam 2021-0 No 1mg 1 mg tablet 10-18 00:00: 00 alprazolam 2021-0 No mg 1 mg tablet 10-18 00:00: 00 alprazolam 2021-0 No 1mg 1 mg tablet 10-18 00:00: 00 alprazolam 2021-0 No mg 1 mg tablet 10-18 00:00: 00 Dose 2021-0 No Unknown - 00:00: 00 Suboxone 8 1-0 No 1mg mg-2 mg 8-11 sublingual 00:00: film 00 Suboxone 8 1-0 No 1mg mg-2 mg 8-11 sublingual 00:00: film 00 Suboxone 8 1-0 No 1mg mg-2 mg 8-11 sublingual 00:00: film 00 Suboxone 8 1-0 No 1mg mg-2 mg 7-14 sublingual 00:00: film 00 Suboxone 8 2021-0 No 1mg mg-2 mg 7-14 sublingual 00:00: film 00 Suboxone 8 1-0 No 1mg mg-2 mg 7-14 sublingual 00:00: film 00 Vitamin D3 1-0 No 1(1,000 25 mcg 7-13 unit) (1,000 00:00: unit) 00 chewable tablet Vitamin D3 1-0 No 1(1,000 25 mcg 7-13 unit) (1,000 00:00: unit) 00 chewable tablet Dose 2020-0 No Unknown 09-17 00:00: 00 lithium 1-0 No 1mg carbonate - 300 mg 00:00: capsule 00 ProAir HFA [...] 00 quetiapine 2021-0 No 1mg 50 mg 7- tablet 00:00: 00 Latuda 60 2021-0 No 1mg mg tablet 09-13 00:00: 00 Cymbalta 60 2021-0 No 1mg mg 7- capsule,del 00:00: ayed 00 release lithium 2021-0 No 1mg carbonate 7- 300 mg 00:00: capsule 00 Dose 2021-0 No Unknown 09-13 00:00: 00 lisinopril 2021-0 No 1mg 20 mg 7- tablet 00:00: 00 atorvastati 2021-0 No 1mg n 20 mg 7- tablet 00:00: 00 divalproex 2021-0 No 1mg 500 mg - tablet,vazquez 00:00: yed release 00 ropinirole 2021-0 No 1mg 2 mg tablet 09-13 00:00: 00 propranolol 2021-0 No 1mg 10 mg - tablet 00:00: 00 hydroxyzine 2021-0 No 1mg HCl 50 mg - tablet 00:00: 00 quetiapine 2021-0 No 1mg 200 mg - tablet 00:00: 00 quetiapine 2021-0 No 1mg 50 mg - tablet 00:00: 00 Latuda 60 1-0 No 1mg mg tablet 09-13 00:00: 00 Dose 2021-0 No Unknown 09-13 00:00: 00 Dose 2021-0 No Unknown 09-13 00:00: 00 Dose 2021-0 No Unknown 09-13 00:00: 00 Cymbalta 60 2021-0 No 1mg mg - capsule,del 00:00: ayed 00 release lithium 2021-0 No 1mg carbonate - 300 mg 00:00: capsule 00 ProAir HFA 1-0 No 2mcg/ac 90 09-13 tuation mcg/actuati 00:00: on aerosol 00 inhaler lisinopril 2021-0 No 1mg 20 mg - tablet 00:00: 00 aspirin 81 2021-0 No 1mg mg - tablet,vazquez 00:00: yed release 00 atorvastati 2021-0 No 1mg n 20 mg - tablet 00:00: 00 folic acid 2021-0 No 1mg 1 mg tablet 09-13 00:00: 00 divalproex 2021-0 No 1mg 500 mg 7-09 tablet,vazquez 00:00: yed release 00 ropinirole 2021-0 No 1mg 2 mg tablet 7- 00:00: 00 Keppra 500 2021-0 No 1mg mg tablet 7- 00:00: 00 propranolol 2021-0 No 1mg 10 mg 7-09 tablet 00:00: 00 hydroxyzine 2021-0 No 1mg HCl 50 mg 7-09 tablet 00:00: 00 quetiapine 2021-0 No 1mg 200 mg 7-09 tablet 00:00: 00 quetiapine 2021-0 No 1mg 50 mg 7-09 tablet 00:00: 00 Latuda 60 2021-0 No 1mg mg tablet 7- 00:00: 00 Cymbalta 60 2021-0 No 1mg mg 7-09 capsule,del 00:00: ayed 00 release Suboxone 8 [...] 1mg 200 mg 5-19 tablet 00:00: 00 aspirin 81 2021-0 No [...] mg-2 mg 5-19 sublingual 00:00: film 00 Suboxone 8 2021-0 No 1mg mg-2 mg 5-19 sublingual 00:00: film 00 Cymbalta 60 2021-0 No 1mg mg 5-19 capsule,del 00:00: ayed 00 release lithium 2021-0 No 1mg carbonate 5-19 300 mg 00:00: capsule 00 Cymbalta 60 2021-0 No 1mg mg [...] 1mg 20 mg 4-22 tablet 00:00: 00 ropinirole 2021-0 No 1mg 1 mg tablet 4-22 00:00: 00 Dose 2021-0 No Unknown 4-22 00:00: 00 ProAir HFA 1-0 No [...] Ambien 10 1-0 No 1mg mg tablet 421 00:00: 00 Dose 2021-0 No Unknown 4-21 00:00: 00 Depakote 2021-0 No 1mg 500 mg 4-21 tablet,vazquez 00:00: yed release 00 thiamine 1-0 No 1mg HCl 4-21 (vitamin 00:00: B1) 100 mg 00 tablet ropinirole 1-0 No 1mg 1 mg tablet 06-26 00:00: 00 alprazolam 1-0 No 1mg 2 mg tablet 06-26 00:00: 00 Flonase 1-0 No 2mcg/ac Allergy 421 tuation Relief 50 00:00: mcg/actuati 00 on nasal spray,suspe nsion ProAir HFA 2020-0 No 2mcg/ac 90 421 tuation mcg/actuati 00:00: on aerosol 00 inhaler [...] 1 mg tablet -21 00:00: 00 propranolol 2021-0 No 1mg 20 mg 4-21 tablet 00:00: 00 Ambien 10 1-0 No 1mg mg tablet -21 00:00: 00 Seroquel 2021-0 No 1mg 200 mg 4-21 tablet 00:00: 00 Depakote 2021-0 No 1mg 500 mg 4-21 tablet,vazquez 00:00: yed release 00 thiamine 1-0 No 1mg HCl 4-21 (vitamin 00:00: B1) 100 mg 00 tablet ropinirole 1-0 No 1mg 1 mg tablet -21 00:00: 00 alprazolam 1-0 No 1mg 2 mg tablet -21 00:00: 00 Flonase 1-0 No 2mcg/ac Allergy -21 tuation Relief 50 00:00: mcg/actuati 00 on nasal spray,suspe nsion ProAir HFA 2020-0 No 2mcg/ac 90 4 tuation mcg/actuati 00:00: on aerosol 00 inhaler Advair 1-0 No 2mcg/do Diskus 250 - se mcg-50 00:00: mcg/dose 00 powder for inhalation atorvastati 1-0 No 1mg n 20 mg 4-21 tablet 00:00: 00 lisinopril 1-0 No 1mg 20 mg 4-21 tablet 00:00: 00 pantoprazol 1-0 No 1mg e 40 mg 4-21 tablet,vazquez 00:00: yed release 00 folic acid 1-0 No 1mg 1 mg tablet -21 00:00: 00 propranolol 2021-0 No 1mg 20 mg 4-21 tablet 00:00: 00 Depakote 1-0 No 1mg 500 mg 4-21 tablet,vazquez 00:00: yed release 00 ropinirole 1-0 No 1mg 1 mg tablet 21 00:00: 00 alprazolam 1-0 No 1mg 2 mg tablet -21 00:00: 00 Dose 2021-0 No Unknown 4-21 00:00: 00 Dose 2021-0 No Unknown 4-21 00:00: 00 Dose 2021-0 No Unknown 4-21 00:00: 00 Dose 2021-0 No Unknown 4-21 00:00: 00 sertraline 2021-0 No 1mg 100 mg 4-13 tablet 00:00: 00 loratadine- 1-0 No 1mg pseudoephed 4-13 rine ER 10 00:00: mg-240 mg 00 tablet,exte nded [id number] sertraline 1-0 No 2mg 100 mg 4-13 [...] 10 00:00: mg-240 mg 00 tablet,exte nded [id number] sertraline 1-0 No 2mg 100 mg 4-13 tablet 00:00: 00 sulfamethox 2021-0 No 1mg azole 800 4-13 mg-trimetho 00:00: [...] 10 00:00: mg-240 mg 00 tablet,exte nded [id number] sertraline 1-0 No 2mg 100 mg 4-13 tablet 00:00: 00 sulfamethox 2021-0 No 1mg azole 800 4-13 mg-trimetho 00:00: [...] mg 3-10 tablet 00:00: 00 Suboxone 8 2021-0 No 1mg mg-2 mg 3-10 sublingual 00:00: film sertraline 2021-0 No 1mg 100 mg 3-10 tablet 00:00: 00 Suboxone 8 2021-0 No 1mg mg-2 mg 3-10 sublingual 00:00: film sertraline 2021-0 No 1mg 100 mg 3-10 tablet 00:00: 00 Suboxone 8 2021-0 No 1mg mg-2 mg 3-10 sublingual 00:00: film Suboxone 8 2021-0 No 1mg mg-2 mg 3-10 sublingual 00:00: film tizanidine 2021-0 No 1mg 4 mg 3-10 capsule 00:00: 00 tizanidine 2021-0 No 1mg 4 mg 3-10 capsule 00:00: 00 tizanidine 2021-0 No 1mg 4 mg 3-10 capsule 00:00: 00 tizanidine 2021-0 No 1mg 4 mg 3-10 capsule 00:00: 00 sertraline 2021-0 No 1mg 100 mg 3-10 tablet 00:00: 00 sertraline 2021-0 No 1mg 100 mg 3-10 tablet 00:00: 00 Suboxone 8 2021-0 No 1mg mg-2 mg 3-10 sublingual 00:00: film Suboxone 8 2021-0 No 1mg mg-2 mg 3-10 sublingual 00:00: [...] No 1mg mg tablet 3-02 00:00: 00 Ambien 10 2021-0 No 1mg mg tablet 3-02 00:00: 00 Ambien 10 1-0 No 1mg mg tablet 05-07 00:00: 00 sertraline 2021-0 No 1mg 100 mg 2-10 tablet 00:00: 00 Suboxone 8 1-0 No 1mg mg-2 mg 2-10 sublingual 00:00: film 00 tizanidine 2021-0 No 1mg 4 mg 2-10 capsule 00:00: 00 sertraline 2021-0 No 1mg 100 mg 2-10 tablet 00:00: 00 Suboxone 8 1-0 No 1mg mg-2 mg 2-10 sublingual 00:00: film 00 tizanidine 2021-0 No 1mg 4 mg 2-10 capsule 00:00: 00 sertraline 2021-0 No 1mg 100 mg 2-10 tablet 00:00: 00 Suboxone 8 1-0 No 1mg mg-2 mg 2-10 sublingual 00:00: film 00 tizanidine 1-0 No 1mg 4 mg 2-10 capsule 00:00: 00 Suboxone 8 2020-0 No 1mg mg-2 mg 1-19 sublingual 00:00: film 00 Suboxone 8 2020-0 No 1mg mg-2 mg 1-19 sublingual 00:00: film Suboxone 8 2020-0 No 1mg mg-2 mg 1-19 sublingual 00:00: film Suboxone 8 2019-1 No 1mg mg-2 mg 2-17 sublingual 00:00: film 00 Suboxone 8 2019-1 No 1mg mg-2 mg 2-17 sublingual 00:00: film Suboxone 8 2019-1 No 1mg mg-2 mg [...] 1-10 sublingual 00:00: film 00 Suboxone 8 2020-1 No 1mg mg-2 mg 1-10 sublingual 00:00: [...] 1mg mg-2 mg 5-20 sublingual 00:00: film Suboxone 8 2020-0 No 1mg mg-2 mg 5-20 sublingual 00:00: film Suboxone 8 2020-0 No 1mg mg-2 mg 5-06 sublingual 00:00: film Suboxone 8 2020-0 No 1mg mg-2 mg 5-06 sublingual 00:00: film Suboxone 8 2020-0 No 1mg mg-2 mg 5-06 sublingual 00:00: film Suboxone 8 2020-0 No 1mg mg-2 mg 4-22 sublingual 00:00: film 00 Suboxone 8 2020-0 No 1mg mg-2 mg 4-22 sublingual 00:00: film 00 Suboxone 8 2020-0 No 1mg mg-2 mg 4-22 sublingual 00:00: film Suboxone 8 2020-0 No 1mg mg-2 mg 4-22 sublingual 00:00: film Suboxone 8 2020-0 No 1mg mg-2 mg [...] alprazolam 2020-0 No 1mg 1 mg tablet 04-07 00:00: 00 tizanidine 2020-0 No 1mg 4 mg 1-31 capsule 00:00: 00 ProAir HFA 2020-0 No 1mcg/ac 90 1 tuation mcg/actuati 00:00: on aerosol 00 inhaler ProAir HFA 2020-0 No 1mcg/ac 90 1-31 [...] alprazolam 2020-0 No 1mg 1 mg tablet 04-07 00:00: 00 tizanidine 2020-0 No 1mg 4 mg 1-31 capsule 00:00: 00 lisinopril 2020-0 No 1mg 20 mg 1-31 tablet 00:00: 00 pantoprazol 2020-0 No 1mg e 40 mg 1-31 tablet,vazquez 00:00: yed release 00 Seroquel 2020-0 No 1mg 100 mg 1-31 tablet 00:00: 00 ProAir HFA 2020-0 No 1mcg/ac [...] No 1mg mg tablet 04-07 00:00: 00 alprazolam 2020-0 No 1mg 1 mg tablet 04-07 00:00: 00 tizanidine 2019-0 No 1mg 4 mg -31 capsule 00:00: 00 ropinirole 2019-0 No 1mg 2 mg tablet 04-07 00:00: 00 propranolol 2020-0 No 1mg 20 mg -31 tablet 00:00: 00 (ALPRAZOLAM 2019- Yes 1/2 tablet [facility] ) 1 MG TABS 2-10 am, 1 Communi 00:00: tablet ty noon, 1/2 Health tablet night (SERTRALINE 2018- Yes [facility] one By [facility] HCL) 50 MG 2-10 [place] [facility] TABS 00:00: Every ty Morning Health for one week then increase to two tablets daily (QUETIAPINE 2018-03 Yes one By [facility] cy FUMARATE) 2-10 Mouth take Comm uni [...] CAPSULE ity of capsule 00:00: EVERY DAY [place] [address] [facility] ibuprofen 2016-0 Yes TAKE 1 Univer s 800 mg 1-25 TABLET BY ity of tablet 00:00: MOUTH [place] [address] TWICE A Medical DAY WITH Branch FOOD [...] 0-26 ity of mg tablet 00:00: [place] [facility] gabapentin 2014-03 Yes [facility] (NEURONTIN) 0-24 ity of 300 mg 00:00: [place] [facility] gabapentin 2014-03 Yes [facility] (NEURONTIN) 0-24 ity of 300 mg 00:00: [place] [facility] gabapentin 2014-03 Yes [facility] (NEURONTIN) 0-24 ity of 300 mg 00:00: [place] [facility] gabapentin 2014-03 Yes Univers (NEURONTIN) 0-24 ity of 300 mg 00:00: [place] [facility] ALPRAZolam 2014-03 Yes Univers (XANAX) 2 0-17 ity of mg tablet 00:00: [facility] zolpidem 2014-03 Yes Univers (AMBIEN) 10 0-17 ity of mg tablet 00:00: [facility] ALPRAZolam 2014-03 Yes Univers (XANAX) 2 0-17 ity of mg tablet 00:00: [facility] zolpidem 2014-03 Yes Univers (AMBIEN) 10 0-17 ity of mg tablet 00:00: [facility] ALPRAZolam 2014-03 Yes Univers (XANAX) 2 0-17 ity of mg tablet 00:00: [facility] zolpidem 2014-03 Yes Univers (AMBIEN) 10 0-17 ity of mg tablet 00:00: [facility] ALPRAZolam 2014-03 Yes Univers (XANAX) 2 0-17 ity of mg tablet 00:00: [facility] zolpidem 2014-03 Yes Univers (AMBIEN) 10 0-17 ity of mg tablet 00:00: [facility] INVEGA 3 mg Yes Univer s 24 hr 8-21 ity of tablet 00:00: [facility] INVEGA 3 mg Yes Univer s 24 hr 8-21 ity of tablet 00:00: [facility] INVEGA 3 mg Yes Univer s 24 hr 8-21 ity of tablet 00:00: [facility] INVEGA 3 mg Yes Univer s 24 hr 8-21 ity of tablet 00:00: [facility] VENLAFAXINE 2007-0 Yes 1 Cap Oral Univers [...] it y of TBEC 00:00: Oral QHS [facility] RISPERIDONE 2007-0 Yes 1 Tab [...] it y of TBEC 00:00: Oral QHS [facility] RISPERIDONE 2007-0 Yes 1 Tab Oral Univers 2 MG ORAL 3-16 BID ity of TAB 00:00: [facility] QUETIAPINE 2007-0 Yes 1 Tab Oral U nivers 200 MG ORAL 3-16 QHS ity of TAB 00:00: [place] [address] [facility] VENLAFAXINE 2007-0 Yes 1 Cap Oral Univers 150 MG ORAL 3-16 QAM WITH ity of CP24 00:00: [place] DIVALPROEX 2007-0 Yes 1 Tab Oral U nivers 500 MG ORAL 3-16 QAM, 2 Tab it y of TBEC 00:00: Oral QHS [place] [address] [facility] RISPERIDONE 2007-0 Yes 1 Tab Oral Univers 2 MG ORAL 3-16 BID ity of TAB 00:00: [facility] QUETIAPINE 2007-0 Yes 1 Tab Oral U nivers 200 MG ORAL 3-16 QHS ity of TAB 00:00: [place] [address] [facility] Vital Signs Vital Name Observation Time Observation Value Comments Source Systolic blood 2020-02-13 05:00:00 145 mm[Hg] Univer sity of pressure [facility] Diastolic blood 2020-02-13 05:00:00 72 mm[Hg] Unive rsity of pressure [facility] Heart rate 2020-02-13 05:00:00 92 /min Universi ty of [facility] Oxygen saturation in 2020-02-13 05:00:00 99 /min University of Arterial blood by [facility] Pulse oximetry Branch Respiratory rate 2020-02-13 04:00:00 18 /min Univ ersity [facility] Body temperature 2020-02-13 01:09:00 36.67 [place] Univ ersity [facility] Body weight 2020-02-13 01:09:00 125.646 kg Universi ty [facility] BMI 2020-02-13 01:09:00 46.10 kg/m2 Universi ty [facility] Systolic blood 2020-02-13 05:00:00 145 mm[Hg] Univer sity of pressure [facility] Branch Diastolic blood 2020-02-13 05:00:00 72 mm[Hg] Unive rsity of pressure [facility] Heart rate 2020-02-13 05:00:00 92 /min Universi ty of [facility] Oxygen saturation in 2020-02-13 05:00:00 99 /min University of Arterial blood by [facility] Pulse oximetry Branch Respiratory rate 2020-02-13 04:00:00 18 /min Univ ersity [facility] Body temperature 2020-02-13 01:09:00 36.67 [place] Univ ersity [facility] Body weight 2020-02-13 01:09:00 125.646 kg Universi ty [facility] BMI 2020-02-13 01:09:00 46.10 kg/m2 Universi ty [facility] BP Systolic 2022-02-24 16:21:00 121 mm[Hg] BP Diastolic 2022-02-24 16:21:00 88 mm[Hg] Weight Measured 2022-02-24 16:21:00 301.80 pounds Height Measured 2022-02-24 16:21:00 65.00 inches Body Temperature 2022-02-24 16:21:00 97.40 degrees Heart Rate 2022-02-24 16:21:00 73.00 /min Respiratory Rate 2022-02-24 16:21:00 18.00 /min BP Systolic 2022-02-11 15:27:00 157 mm[Hg] BP Diastolic 2022-02-11 15:27:00 95 mm[Hg] Weight Measured 2022-02-11 15:27:00 314.80 pounds Height Measured 2022-02-11 15:27:00 65.00 inches Body Temperature 2022-02-11 15:27:00 98.00 degrees Heart Rate 2022-02-11 15:27:00 90.00 /min Respiratory Rate 2022-02-11 15:27:00 17.00 /min BP Systolic 2022-01-13 14:16:00 168 mm[Hg] BP Diastolic 2022-01-13 14:16:00 103 mm[Hg] Weight Measured 2022-01-13 14:16:00 314.20 pounds Height Measured 2022-01-13 14:16:00 65.00 inches Body Temperature 2022-01-13 14:16:00 98.30 degrees Heart Rate 2022-01-13 14:16:00 96.00 /min Respiratory Rate 2022-01-13 14:16:00 18.00 /min BP Systolic 2021-12-29 11:41:00 159 mm[Hg] BP [...] EXTERNAL PROVIDER RECORDS 2020-10-09 05:01:00 [facility]IN[facility] 2020-02-13 02:27:00 Iliana Ruiz [facility] ADC / LCC - DRUG SCREEN 2020-02-13 02:27:00 Iliana Ruiz [facility] TRIAGE [facility] CT HEAD WO CONTRAST 2020-02-13 01:56:48 Iliana Ruiz [facility] EXTRA TUBE LT. BLUE 2020-02-13 01:37:00 Iliana Ruiz [facility] EXTRA TUBE SST 2020-02-13 01:37:00 Iliana Ruiz [facility] EXTRA TUBE LT. GREEN 2020-02-13 01:37:00 Iliana Ruiz [facility] XR CHEST 1 VW 2020-02-13 01:33:14 Iliana Ruiz [facility] TROPONIN I 2020-02-13 01:32:00 Iliana Ruiz [facility] COMP. METABOLIC PANEL 2020-02-13 01:32:[address] [facility] ([id number]) [facility] SALICYLATE 2020-02-13 01:32:00 Iliana Ruiz [facility] VALPROIC ACID, TOTAL 2020-02-13 01:32:00 Iliana Ruiz [facility] ETHANOL 2020-02-13 01:32:00 Iliana Ruiz [facility] CBC WITH DIFF 2020-02-13 01:32:00 Iliana Ruiz [facility] COVID-19 (ID NOW RAPID 2020-02-13 01:32:00 Iliana Ruiz [facility] TESTING) [facility] EXTERNAL PROVIDER RECORDS 2019-10-09 05:01:00 Doctor Unassigned, [facility] Branch Diagnostic evaluation with 2019-02-14 14:55:13 Deloris Escobar [facility] [address] [facility] Operation 2003-03-08 00:00:00 Levar corea Cholecystectomy 2000-03-08 00:00:00 Levar corea Plan of Care Planned Activity Planned Date Details Comments Source Goal Plan of Care Note [code = 42064-8] Goal Plan of Care Note [code = 14310-6] Goal Plan of Care Note [code = 69970-0] Goal Plan of Care Note [code = 91472-2] Goal Plan of Care Note [code = 22330-7] Goal Plan of Care Note [code = 93450-3] Goal Plan of Care Note [code = 70534-6] Goal Plan of Care Note [code = 30107-5] Goal Plan of Care Note [code = 72328-0] Goal Plan of Care Note [code = 40009-3] Goal Plan of Care Note [code = 47343-5] Goal Plan of Care Note [code = 40467-7] Goal Plan of Care Note [code = 18985-1] Goal Plan of Care Note [code = 96944-5] Goal Plan of Care Note [code = 80533-4] Goal Plan of Care Note [code = 97746-7] Goal Plan of Care Note [code = 56574-8] Goal Plan of Care Note [code = 04743-0] Goal Plan of Care Note [code = 23384-5] Goal Plan of Care Note [code = 53345-1] Goal Plan of Care Note [code = 97380-8] Goal Plan of Care Note [code = 14723-2] Goal Plan of Care Note [code = 75772-7] Goal Plan of Care Note [code = 01927-5] Goal Plan of Care Note [code = 36916-0] Goal Plan of Care Note [code = 19435-8] Goal Plan of Care Note [code = 32867-2] Goal Plan of Care Note [code = 20429-6] Goal Plan of Care Note [code = 04603-4] Goal Plan of Care Note [code = 57374-1] Goal Plan of Care Note [code = 25775-6] Goal Plan of Care Note [code = 55631-9] Goal Plan of Care Note [code = 11259-6] Goal Plan of Care Note [code = 42320-4] Goal Plan of Care Note [code = 74837-0] Goal Plan of Care Note [code = 49980-6] Goal Plan of Care Note [code = 78065-7] Goal Plan of Care Note [code = 21074-1] Goal Plan of Care Note [code = 54455-7] Goal Plan of Care Note [code = 87655-9] Goal Plan of Care Note [code = 19552-8] Goal Plan of Care Note [code = 73587-9] Goal Plan of Care Note [code = 30371-3] Goal Plan of Care Note [code = 68172-7] Goal Plan of Care Note [code = 55889-3] Goal Plan of Care Note [code = 29810-0] Goal Plan of Care Note [code = 97023-6] Goal Plan of Care Note [code = 94909-3] Goal Plan of Care Note [code = 90191-0] Goal Plan of Care Note [code = 17214-9] Goal Plan of Care Note [code = 23162-7] Goal Plan of Care Note [code = 48821-3] Goal Plan of Care Note [code = 62193-6] Goal Plan of Care Note [code = 22506-5] Goal Plan of Care Note [code = 33494-3] Goal Plan of Care Note [code = 16519-8] Goal Plan of Care Note [code = 00705-5] Goal Plan of Care Note [code = 97328-2] Goal Plan of Care Note [code = 22528-8] Goal Plan of Care Note [code = 59008-5] Goal Plan of Care Note [code = 86878-1] Goal Plan of Care Note [code = 15553-3] Goal Plan of Care Note [code = 92719-8] Goal Plan of Care Note [code = 82373-1] Goal Plan of Care Note [code = 69271-8] Goal Plan of Care Note [code = 26191-0] Goal Plan of Care Note [code = 92780-9] Goal Plan of Care Note [code = 89489-3] Goal Plan of Care Note [code = 22027-4] Goal Plan of Care Note [code = 08387-6] Goal Plan of Care Note [code = 44791-2] Goal Plan of Care Note [code = 53699-1] Goal Plan of Care Note [code = 14918-8] Encounters Start End Encounter Admission Attending Care Care Encounter Source Date/Time Date/Time Type Type Clinicians Facility Department ID 2020-12-17 Inpatient [facility] [id number] [facility] 20:30:00 96 2020-12-17 Inpatient [facility] [id number] [facility] 20:30:00 96 2022-02-25 2022-02-25 Outpatient [id number] 00:00:00 00:00:00 Visit 8xo8-5h72 fd8-4b09-a -m6ad-5u4 [id number] 2022-02-24 2022-02-24 Outpatient SFA SFA [id number] 022 [facility]ady 16:17:21 16:17:21 1220 F Jose E 2022-02-11 2022-02-11 Outpatient SFA SFA [id number] 022 Fady 15:21:08 15:21:08 1207 F Jose E 2022-01-13 2022-01-13 Outpatient SFA SFA [id number] 022 Fady 13:59:33 13:59:33 1108 F Jose E 2022-01-02 2022-01-02 Outpatient [id number] 00:00:00 00:00:00 Visit 88db-4be8 8db-4be8-a -x5b6-3d9 [id number] [id number] 2021-12-29 2021-12-29 Outpatient SFA SFA [id number] 022 Fady 11:22:55 11:22:55 1024 F Jose E 2021-12-17 2021-12-17 Outpatient SFA SFA [id number] 022 Fady 13:53:32 13:53:32 1012 F Jose E 2021-10-21 2021-10-21 Outpatient [id number] 00:00:00 00:00:00 Visit qj3v-9305 a1a-9101-1 -90cf-f70 [id number] [id number] 2020-12-30 2020-12-30 Outpatient [facility] [id number] 021 [facility]oted 08:02:00 08:02:[address] [place], [place] [address]a l Group 2020-10-29 2020-10-29 Outpatient JARAD RINCON [facility] [id number] Univers 13:40:00 13:40:00 JARAD LÓPEZ [facility] 2020-10-28 2020-10-28 Outpatient JARAD RINCON [facility] [id number] Univers 13:40:00 13:40:00 JARAD LÓPEZ [place] [facility] 2020-10-15 2020-10-15 Outpatient JARAD RINCON [facility] [id number] Univers 13:00:00 13:00:00 JARAD LÓPEZ [place] [facility] 2020-10-09 2020-10-09 Orders Doctor SARAH BETH [id number] Univers 00:00:00 00:00:00 Only Unassigned, LAWRENCE 350.1.13.10 ity of [place] 4.2.7.2.686 Jean Marie as [phone] [facility] [address] [place] 2020-10-07 2020-10-07 [facility] [id number] Univers 15:30:00 15:30:00 RAAD [facility] 2020-10-03 2020-10-03 [facility] [id number] Univers 00:00:00 00:00[facility] 350.1.13.10 it y of [facility] 4.2.7.2.686 Jean Marie as Specialti [phone] Co dical es 198 [facility] 2020-09-24 2020-09-24 [facility] [id number] Univers 15:45:00 15:45:00 [facility]12 2020-02-13 Emergency X [facility] ERT [id number] Univers 19:02:00 00:09:00 [facility] 2020-02-12 2020-02-13 Emergency [facility] [id number] Univers 19:02:00 00:09:00 Iliana [place] [id number] ity of [place] [phone] [facility] [address] [place] 2020-02-12 2020-02-13 Emergency [facility] [id number] 19:02:00 00:09:00 Iliana Lowery 350.1.13.10 [place] 4.2.7.2.686 [place] [id number] 2019-10-09 2019-10-09 Orders Doctor SARAH BETH [id number] Univers 00:00:00 00:00:00 Only Unassigned, [place] [id number] ity of [place] [facility] 4.2.7.2.686 Jean Marie as [id number] [facility] 009 Branch 2019-10-09 2019-10-09 Orders Doctor SARAH BETH [id number] 00:00:00 00:00:00 Only Unassigned, [place] 350.1.13.10 [place] [facility] 4.2.7.2.686 [id number] 2019-02-14 2019-02-14 Office Deloris Escobar [facility] Spence En counter/ Legacy 00:00:00 00:00:00 Visit Shelly Taveras [id number] [facility] [id number] [facility] 2018-09-23 2018-09-23 Office Antonietta Garcia [facility] Legacy En counter/ Legacy 00:00:00 00:00:00 Visit Michael, Sarika [facility] [id number] [facility] [id number] [facility] 2018-09-23 2018-09-23 Office Alec [facility] Legacy Encoun ter/ Legacy 00:00:00 00:00:00 Visit Sarika [facility] [id number] [facility] [id number] [facility] 2017-04-05 2017-04-05 Ambulatory nullFlavo [facility] 3 [id number] Memoria 17:15:00 17:15:00 Pre-Reg r Medicine 02 cate zhou 2017-04-05 2017-04-05 Ambulatory nullFlavo [facility] 3 [id number] Memoria 17:15:00 17:15:00 Pre-Reg r Medicine 02 cate zhou 2017-04-05 2017-04-05 Outpatient REBECCAIE REBECCAIE [id number] Memoria 11:15:00 11:15:00 Adam Mera 2017-04-05 2017-04-05 Outpatient Lito [facility] [id number] 11:15:00 11:15:00 Gail N 02 2017-03-26 2017-03-26 Ambulatory nullFlavo [facility] 3 [id number] Memoria 21:15:00 21:15:00 Pre-Reg r Medicine 01 cate Vazquez n 2017-03-26 2017-03-26 Ambulatory nullFlavo [facility] Family 3 [id number] Memoria 21:15:00 21:15:00 Pre-Reg r Medicine 01 cate Vazquez n 2017-03-26 2017-03-26 Outpatient [facility] [id number] Memoria 15:15:00 15:15:00 01 cate Mera 2017-03-26 2017-03-26 Outpatient Lito [facility] [id number] 15:15:00 15:15:00 Gail N 2016-12-07 2016-12-07 Outpatient [facility] [id number] Memoria 11:00:00 11:00:00 00 cate Mera 2016-12-07 2016-12-07 Outpatient [facility] [id number] Memoria 11:00:00 11:00:00 00 cate Mera [...] code = NRBCP) 0 % Comprehensive Metabolic [id number] 21:10:00 Test Item Value Reference Range Interpretation [...] 99 U/L 46-116 N = ALP) Ethanol [id number] 21:10:00 Test Item Value Reference Range Interpretation Comments Ethanol (test code = ETOH) < 3 mg/dL Coronavirus PCR, COVID19 [id number] 21:10:00 Test Item Value Reference Range Interpretation Comments Coronavirus PCR, For use under Emergency COVID19 Rapid (test Use Authorization (EUA) code = SARSCOV2) only. Coronavirus PCR, Reference Range: COVID19 Rapid (test Negative code = VKXSBUT43.1) SARS-CoV-2 PCR Result: Negative by PCR (test code = SARS-CoV-2 PCR Result:) COVID-19 Status: AsymptomaticCBC W/AUTO [id number] 00:00:00 Test Item Value Reference Range Interpretation [...] NUCLEATED RBCS (test code = 0.00 K/UL 69869) CBC W/AUTO [id number] 00:00:00 Test Item Value Reference Range Interpretation [...] NUCLEATED RBCS (test code = 0.00 K/UL 19596) CBC W/AUTO [id number] 00:00:00 Test Item Value Reference Range Interpretation [...] NUCLEATED RBCS (test code = 0.00 K/UL 67667) LIPID [id number] 00:00:00 Test Item Value Reference Range Interpretation Comments CHOLESTEROL (test code = 2210) 189 MG/DL TRIGLYCERIDES (test code = 2232) 135 MG/DL HDL CHOLESTEROL (test code = 2220) 64 MG/DL CALC LDL CHOL (test code = 2237) 102 MG/DL RISK RATIO LDL/HDL (test code = 1.59 RATIO 2238) LIPID [id number] 00:00:00 Test Item Value Reference Range Interpretation Comments CHOLESTEROL (test code = 2210) 189 MG/DL TRIGLYCERIDES (test code = 2232) 135 MG/DL HDL CHOLESTEROL (test code = 2220) 64 MG/DL CALC LDL CHOL (test code = 2237) 102 MG/DL RISK RATIO LDL/HDL (test code = 1.59 RATIO 2238) COMPREHENSIVE METABOLIC [id number] 00:00:00 Test Item Value Reference Range Interpretation Comments GLUCOSE (test code = 2217) 121 MG/DL BUN (test code = 2208) 22 MG/DL CREATININE (test code = 2214) 1.11 MG/DL eGFR AMER. (test code 66 ML/MIN/1.73 = 10729) eGFR NON- AMER. (test 57 ML/MIN/1.73 code = 52829) CALC BUN/CREAT (test code = 20 RATIO [...] code = 2219) 11 U/L COMPREHENSIVE METABOLIC [id number] 00:00:00 Test Item Value Reference Range Interpretation Comments GLUCOSE (test code = 2217) 121 MG/DL BUN (test code = 2208) 22 MG/DL CREATININE (test code = 2214) 1.11 MG/DL eGFR AMER. (test code 66 ML/MIN/1.73 = 65404) eGFR NON- AMER. (test 57 ML/MIN/1.73 code = 62949) CALC BUN/CREAT (test code = 20 RATIO 2234) SODIUM (test code = 2231) 138 MEQ/L [...] IRON BINDING CAPACITY AND IRON AND % [id number] 00:00:00 Test Item Value Reference Range Interpretation Comments IRON, SERUM (test code = 2221) 42 UG/DL UNSATURATED IBC (test code = ) 246 UG/DL CALC TOTAL IBC (test code = 2076) 288 UG/DL CALC % IRON SAT (test code = 2078) 15 % IRON BINDING CAPACITY AND IRON AND % [id number] 00:00:00 Test Item Value Reference Range Interpretation Comments IRON, SERUM (test code = 2221) 42 UG/DL UNSATURATED IBC (test code = 55548) 246 UG/DL CALC TOTAL IBC (test code = 7) 288 UG/DL CALC % IRON SAT (test code = 9) 15 % [id number] 00:00:00 Test Item Value Reference Range Interpretation Comments FERRITIN (test code = 5) 35 NG/ML [id number] 00:00:00 Test Item Value Reference Range Interpretation Comments FERRITIN (test code = 5) 35 NG/ML [id number] 00:00:00 Test Item Value Reference Range Interpretation Comments TRANSFERRIN (test code = 4936) 232 MG/DL [id number] 00:00:00 Test Item Value Reference Range Interpretation Comments TRANSFERRIN (test code = 4936) 232 MG/DL VITAMIN D, 25 [id number] 00:00:00 Test Item Value Reference Range Interpretation Comments VITAMIN D, 25 [place] (test code = 4958) 15 NG/ML VITAMIN D, 25 [id number] 00:00:00 Test Item Value Reference Range Interpretation Comments VITAMIN D, 25 [place] (test code = 4958) 15 NG/ML CBC W/AUTO [id number] 00:00:00 Test Item Value Reference Range Interpretation [...] NUCLEATED RBCS (test code = 0.00 K/UL 66310) CBC W/AUTO [id number] 00:00:00 Test Item Value Reference Range Interpretation [...] NUCLEATED RBCS (test code = 0.00 K/UL 02051) CBC W/AUTO [id number] 00:00:00 Test Item Value Reference Range Interpretation [...] NUCLEATED RBCS (test code = 0.00 K/UL 42033) LIPID [id number] 00:00:00 Test Item Value Reference Range Interpretation Comments CHOLESTEROL (test code = 2210) 189 MG/DL TRIGLYCERIDES (test code = 2232) 135 MG/DL HDL CHOLESTEROL (test code = 2220) 64 MG/DL CALC LDL CHOL (test code = 2237) 102 MG/DL RISK RATIO LDL/HDL (test code = 1.59 RATIO 2238) LIPID [id number] 00:00:00 Test Item Value Reference Range Interpretation Comments CHOLESTEROL (test code = 2210) 189 MG/DL TRIGLYCERIDES (test code = 2232) 135 MG/DL HDL CHOLESTEROL (test code = 2220) 64 MG/DL CALC LDL CHOL (test code = 2237) 102 MG/DL RISK RATIO LDL/HDL (test code = 1.59 RATIO 2238) COMPREHENSIVE METABOLIC [id number] 00:00:00 Test Item Value Reference Range Interpretation Comments GLUCOSE (test code = 2217) 121 MG/DL BUN (test code = 2208) 22 MG/DL CREATININE (test code = 2214) 1.11 MG/DL eGFR AMER. (test code 66 ML/MIN/1.73 = 94317) eGFR NON- AMER. (test 57 ML/MIN/1.73 code = 28142) CALC BUN/CREAT (test code = 20 RATIO [...] code = 2219) 11 U/L COMPREHENSIVE METABOLIC [id number] 00:00:00 Test Item Value Reference Range Interpretation Comments GLUCOSE (test code = 2217) 121 MG/DL BUN (test code = 2208) 22 MG/DL CREATININE (test code = 2214) 1.11 MG/DL eGFR AMER. (test code 66 ML/MIN/1.73 = 82152) eGFR NON- AMER. (test 57 ML/MIN/1.73 code = 05078) CALC BUN/CREAT (test code = 20 RATIO [...] IRON BINDING CAPACITY AND IRON AND % [id number] 00:00:00 Test Item Value Reference Range Interpretation Comments IRON, SERUM (test code = 2221) 42 UG/DL UNSATURATED IBC (test code = ) 246 UG/DL CALC TOTAL IBC (test code = 2076) 288 UG/DL CALC % IRON SAT (test code = 2078) 15 % IRON BINDING CAPACITY AND IRON AND % [id number] 00:00:00 Test Item Value Reference Range Interpretation Comments IRON, SERUM (test code = 2) 42 UG/DL UNSATURATED IBC (test code = 11976) 246 UG/DL CALC TOTAL IBC (test code = 2076) 288 UG/DL CALC % IRON SAT (test code = 2078) 15 % [id number] 00:00:00 Test Item Value Reference Range Interpretation Comments FERRITIN (test code = 2074) 35 NG/ML [id number] 00:00:00 Test Item Value Reference Range Interpretation Comments FERRITIN (test code = 2074) 35 NG/ML [id number] 00:00:00 Test Item Value Reference Range Interpretation Comments TRANSFERRIN (test code = 4936) 232 MG/DL [id number] 00:00:00 Test Item Value Reference Range Interpretation Comments TRANSFERRIN (test code = 4935) 232 MG/DL VITAMIN D, 25 [id number] 00:00:00 Test Item Value Reference Range Interpretation Comments VITAMIN D, 25 [place] (test code = 4958) 15 NG/ML VITAMIN D, 25 [id number] 00:00:00 Test Item Value Reference Range Interpretation Comments VITAMIN D, 25 [place] (test code = 4958) 15 NG/ML CBC W/AUTO [id number] 00:00:00 Test Item Value Reference Range Interpretation [...] NUCLEATED RBCS (test code = 0.00 K/UL 40736) CBC W/AUTO [id number] 00:00:00 Test Item Value Reference Range Interpretation [...] NUCLEATED RBCS (test code = 0.00 K/UL 52625) CBC W/AUTO [id number] 00:00:00 Test Item Value Reference Range Interpretation [...] NUCLEATED RBCS (test code = 0.00 K/UL 32405) LIPID [id number] 00:00:00 Test Item Value Reference Range Interpretation Comments CHOLESTEROL (test code = 2210) 189 MG/DL TRIGLYCERIDES (test code = 2232) 135 MG/DL HDL CHOLESTEROL (test code = 2220) 64 MG/DL CALC LDL CHOL (test code = 2237) 102 MG/DL RISK RATIO LDL/HDL (test code = 1.59 RATIO 2238) LIPID [id number] 00:00:00 Test Item Value Reference Range Interpretation Comments CHOLESTEROL (test code = 2210) 189 MG/DL TRIGLYCERIDES (test code = 2232) 135 MG/DL HDL CHOLESTEROL (test code = 2220) 64 MG/DL CALC LDL CHOL (test code = 2237) 102 MG/DL RISK RATIO LDL/HDL (test code = 1.59 RATIO 2238) COMPREHENSIVE METABOLIC [id number] 00:00:00 Test Item Value Reference Range Interpretation Comments GLUCOSE (test code = 2217) 121 MG/DL BUN (test code = 2208) 22 MG/DL CREATININE (test code = 2214) 1.11 MG/DL eGFR AMER. (test code 66 ML/MIN/1.73 = 07031) eGFR NON- AMER. (test 57 ML/MIN/1.73 code = 52142) CALC BUN/CREAT (test code = 20 RATIO [...] code = 2219) 11 U/L COMPREHENSIVE METABOLIC [id number] 00:00:00 Test Item Value Reference Range Interpretation Comments GLUCOSE (test code = 2217) 121 MG/DL BUN (test code = 2208) 22 MG/DL CREATININE (test code = 2214) 1.11 MG/DL eGFR AMER. (test code 66 ML/MIN/1.73 = 15641) eGFR NON- AMER. (test 57 ML/MIN/1.73 code = 89707) CALC BUN/CREAT (test code = 20 RATIO [...] IRON BINDING CAPACITY AND IRON AND % [id number] 00:00:00 Test Item Value Reference Range Interpretation Comments IRON, SERUM (test code = 2222) 42 UG/DL UNSATURATED IBC (test code = 16832) 246 UG/DL CALC TOTAL IBC (test code = 7) 288 UG/DL CALC % IRON SAT (test code = 2078) 15 % IRON BINDING CAPACITY AND IRON AND % [id number] 00:00:00 Test Item Value Reference Range Interpretation Comments IRON, SERUM (test code = 2222) 42 UG/DL UNSATURATED IBC (test code = 93026) 246 UG/DL CALC TOTAL IBC (test code = 7) 288 UG/DL CALC % IRON SAT (test code = 2078) 15 % [id number] 00:00:00 Test Item Value Reference Range Interpretation Comments FERRITIN (test code = 5) 35 NG/ML [id number] 00:00:00 Test Item Value Reference Range Interpretation Comments FERRITIN (test code = 2075) 35 NG/ML [id number] 00:00:00 Test Item Value Reference Range Interpretation Comments TRANSFERRIN (test code = 4936) 232 MG/DL [id number] 00:00:00 Test Item Value Reference Range Interpretation Comments TRANSFERRIN (test code = 4936) 232 MG/DL VITAMIN D, 25 [id number] 00:00:00 Test Item Value Reference Range Interpretation Comments VITAMIN D, 25 OH (test code = 4958) 15 NG/ML VITAMIN D, 25 [id number] 00:00:00 Test Item Value Reference Range Interpretation Comments VITAMIN D, 25 OH (test code = 4958) 15 NG/ML CT HEAD WO [id number] 04:01:33 No acute intracranial abnormality. Preliminary Report [...] have reviewed this study and agree withtheabove report.[facility] 03:[facility]:00 Test Item Value Reference Range Interpretation Comments APPEARANCE (test code = Turbid Clear A 6739888434) COLOR (test code = Roxy Yellow A 6900569415) PH (test code = 4.8-8.0 5854853562) SP GRAVITY (test code = 1.003-1.030 H 3680832670) GLU U QUAL (test code = Normal Normal 1550217914) BLOOD (test code = Negative Negative 2567554893) KETONES (test code = 20 mg/dL Negative A 2800866525) PROTEIN (test code = 30 mg/dL Negative A 2887-8) UROBILIN (test code = Normal Normal 2081511610) BILIRUBIN (test code = Negative Negative 8320984414) NITRITE (test code = Negative Negative 9252292731) LEUK MARKOS (test code = Negative Negative 2919566315) RBC/HPF (test code = See_Comment [Autom ated message] 5236569797) The system [employer] generated this result transmitted ref erence range: 0 - 3 HP F. The reference range was not used to int erpret this result as normal/abnormal . WBC/HPF (test code = See_Comment [Autom ated message] 5756548705) The system [employer] generated this result transmitted ref erence range: 0 - 5 HP F. The reference range was not used to int erpret this result as normal/abnormal . BACTERIA (test code = Many Negative A 8972530589) MUCOUS (test code = Moderate Negative LPF A 4391327099) HYAL CAST (test code = See_Comment H [Aut omated message] 8553160143) The system [employer] generated this result transmitted ref erence range: <=2 LPF. The reference range was not used to int erpret this result as normal/abnormal . GRAN CASTS (test code = See_Comment H [Au tomated message] 3860419835) The system [employer] generated this result transmitted ref erence range: <=1 LPF. The reference range was not used to int erpret this result as normal/abnormal . Lab Interpretation (test Abnormal code = 14997-6) [facility] - DRUG SCREEN [id number] 03:00:00 Test Item Value Reference Range Interpretation Comments BENZO U (test code = Negative Negative 2445340420) JESSICA U (test code = Negative Negative 1726703121) AMPHET (test code = Negative Negative 0371244813) THC (test code = Negative Negative 1221954820) METHADONE (test code Negative Negative = 2271861102) Meth U (test code = Negative Negative 3652147304) OPIATES (test code = Negative Negative 0009864723) Cocaine Metabolite Negative Negative (test code = 4415524250) PROPOXY (test code = Negative Negative 5522204555) Tric U (test code = Presumptive Negative A Confirma tion of 7829281188) Positive Presumptive Positive TCA result requires physician order and this will b e sent to referen ce lab. PCP (test code = Negative Negative 6944097457) OXYCOD (test code = Negative Negative 4136643866) TULIO (test code = Urine Drug Cutoff [...] testing). Lab Interpretation Abnormal (test code = 35076-3) [facility]oundGRISELDAJOJO [id number] 02:55:00 Test Item Value Reference Range Interpretation Comments TROPONIN I (test <0.012 See_Comment [Automated code = 2074382399) message] The system which generated this result [...] ? Lab Interpretation Normal (test code = 99283-0) [facility], [id number] 02:50:00 Test Item Value Reference Range Interpretation Comments VALPROIC A (test code = <10 50-100 L 1779659988) TULIO (test code = TULIO) Toxic Range: ?Greater than 100 ug/mL Lab Interpretation (test Abnormal code = 28527-1) [facility]ound[facility]ALICYLATE2020-12-08 02:45:00 Test Item Value Reference Range Interpretation Comments SALICYLATE (test code <10 mg/L = 2174490408) TULIO (test code = TULIO) Therapeutic Range: ? Analgesic and Antipyretic Use ? 20-100 mg/L ? ? Anti-Inflammatory Use ? 100-250 mg/L Toxic Range: ? Greater than 300 mg/L [facility]OL2020-12-08 02:45:00 Test Item Value Reference Range Interpretation Comments ALCOHOL (test code = <10 mg/dL 9641805546) TULIO (test code = TULIO) <10 [id number] Toxic>100 Depression of HEALTHCARE ANALYST>400 Fatalities Reported [facility]ACETAMINOPHEN2020-12-08 02:44:00 Test Item Value Reference Range Interpretation Comments ACETAMINOP (test code = <10.0 10-30 L 1950166102) TULIO (test code = TULIO) Toxic: Greater than 200 ug/mL @ 4 hour post ingestion or greater than 50 ug/mL @ 12 hour post ingestion Lab Interpretation (test Abnormal code = 86975-3) [facility]COMP. METABOLIC PANEL (17739)2020-02-13 02:43:00 Test Item Value Reference Range Interpretation Comments NA (test code = 138 mmol/L 135-145 2867007939) K (test code = 5.1 mmol/L 3.5-5 H 1554160348) CL (test code = 106 mmol/L 98-108 3429891400) CO2 TOTAL (test code = 19 mmol/L 23-31 L 0839836289) AGAP (test code = 2-16 6255112545) BUN (test code = 26 mg/dL 7-23 H 0171278416) GLUCOSE (test code = 113 mg/dL 70-110 H 9957986690) CREATININE (test code = 1.20 mg/dL 0.5-1.04 H 5273599357) TOTAL BILI (test code = 0.5 mg/dL 0.1-1.4 5691887154) CALCIUM (test code = 10.4 mg/dL 8.6-10.6 3579400246) T PROTEIN (test code = 8.4 g/dL 6.3-8.2 H 1966598157) ALBUMIN (test code = 4.7 g/dL 3.5-5 0196761551) ALK PHOS (test code = 115 U/L 34-122 6666691007) ALTv (test code = 14 U/L 5-35 1742-6) AST(SGOT) (test code = 20 U/L 13-40 3225206676) eGFR Calculation mL/min/1.73m2 (Non-) (test code = 5916563382) eGFR Calculation mL/min/1.73m2 () (test code = 0557829823) TULIO (test code = TULIO) Association of [...] tests). Lab Interpretation Abnormal (test code = 76316-6) [facility]OVID[facility] (ID NOW RAPID TESTING)2020-02-13 02:15:00 Test Item Value Reference Range Interpretation Comments SARS-CoV-2 Rapid ID NOW Not Detected Not Detected (test code = 78661-4) UTLIO (test code = TULIO) ID NOW COVID-19 Assay is an isothermal nucleic acid amplification test intended for the qualitative detection of nucleic acid from SARS-CoV-2 viral RNA in nasopharyngeal (STRIP CLEANER) specimens. It is used under Emergency Use [...] indicated. Lab Interpretation Normal (test code = 23256-0) [facility] WITH [id number] 01:53:00 Test Item Value Reference Range Interpretation Comments WBC (test code = See_Comment H [Automated 8775-2) message] The sy stem which generated this result transmitted reference range : 4.30 - 11.10 10*3/?L. The reference range was not used to interpret this result as normal/abnormal . RBC (test code = See_Comment [Automated 283-8) message] The sy stem which generated this [...] RDW-SD (test code = 43.3 fL 39-49.9 61977-0) RDW-CV (test code = 14.1 % 12-15.5 788-0) PLT (test code = See_Comment H [Automated 777-3) message] The sy stem which generated this result transmitted reference range : 166 - 358 10*3/ ?L. The reference r xochitl was not used to interpret this result as normal/abnormal . MPV (test code = 9.6 fL 9.5-12.9 55459-3) NRBC/100 WBC (test See_Comment [Automat ed code = 4108457100) message] The system which generated this result transmitted reference range : 0.0 - 10.0 /100 WBCs. The refer ence range was not u sed to interpret th is result as normal/abnormal . NRBC x10^3 (test code <0.01 See_Comment [Auto mated = 9826258915) message] The s ystem which generated this result transmitted reference range : 10*3/?L. The reference range was not used to interpret this result as normal/abnormal . GRAN MAT (NEUT) % 82.3 % (test code = 770-8) IMM GRAN % (test code 0.70 % = 6765903036) LYMPH % (test code = 12.5 % 736-9) MONO % (test code = 3.9 % 5905-5) EOS % (test code = 0.2 % 713-8) BASO % (test code = 0.4 % 706-2) GRAN MAT x10^3(ANC) 9.44 10*3/uL 1.88-7.09 H (test code = 1639723185) IMM GRAN x10^3 (test 0.08 10*3/uL 0-0.06 H code = 2275455638) LYMPH x10^3 (test code 1.43 10*3/uL 1.32-3.29 = 731-0) MONO x10^3 (test code 0.45 10*3/uL 0.33-0.92 = 742-7) EOS x10^3 (test code = <0.03 0.03-0.39 L 711-2) BASO x10^3 (test code 0.05 10*3/uL 0.01-0.07 = 704-7) Lab Interpretation Abnormal (test code = 08824-3) [facility] (COVID-19) by RT-PCR (HIGH RISK) 2019-09-22 00:00:00 Test Item Value Reference Range Interpretation Comments SARS-CoV-2 INTERPRETATION (test NEGATIVE code = 10408) SOURCE (test code = 87719) NOT SPECIFIED SARS-CoV-2 (COVID-19) by RT-PCR (HIGH RISK)2019-09-22 00:00:00 Test Item Value Reference Range Interpretation Comments SARS-CoV-2 INTERPRETATION (test NEGATIVE code = 37020) SOURCE (test code = 56241) NOT SPECIFIED SARS-CoV-2 (COVID-19) by RT-PCR (HIGH RISK)2019-09-22 00:00:00 Test Item Value Reference Range Interpretation Comments SARS-CoV-2 INTERPRETATION (test NEGATIVE code = 66535) SOURCE (test code = 38981) NOT SPECIFIED SARS-CoV-2 (COVID-19) by RT-PCR (HIGH RISK)2019-09-22 00:00:00 Test Item Value Reference Range Interpretation Comments SARS-CoV-2 INTERPRETATION (test NEGATIVE code = 35685) SOURCE (test code = 35394) NOT SPECIFIED SARS-CoV-2 (COVID-19) by RT-PCR (HIGH RISK)2019-09-22 00:00:00 Test Item Value Reference Range Interpretation Comments SARS-CoV-2 INTERPRETATION (test NEGATIVE code = 14221) SOURCE (test code = 13887) NOT SPECIFIED SARS-CoV-2 (COVID-19) by RT-PCR (HIGH RISK)2019-09-22 00:00:00 Test Item Value Reference Range Interpretation Comments SARS-CoV-2 INTERPRETATION (test NEGATIVE code = 12835) SOURCE (test code = 21299) NOT SPECIFIED DRUG SCREEN, [id number] 00:00:00 Test Item Value Reference Range Interpretation Comments AMPHETAMINES (test code = 06982) Negative BARBITURATES (test code = 29012) Negative BENZODIAZEPINES (test code = 37653) Positive COCAINE METABOLITE (test code = Negative 97425) METHADONE (test code = 90885) Negative OPIATES (test code = 284160) Negative PHENCYCLIDINE (test code = 807057) Negative PROPOXYPHENE (test code = 246071) Negative THC (CANNABIS) (test code = 198863) Negative ETHANOL (test code = 500487) Negative DRUG SCREEN, [id number] 00:00:00 Test Item Value Reference Range Interpretation Comments AMPHETAMINES (test code = 40264) Negative BARBITURATES (test code = 87708) Negative BENZODIAZEPINES (test code = 24147) Positive COCAINE METABOLITE (test code = Negative 53680) METHADONE (test code = 86114) Negative OPIATES (test code = 772271) Negative PHENCYCLIDINE (test code = 625382) Negative PROPOXYPHENE (test code = 759460) Negative THC (CANNABIS) (test code = 616151) Negative ETHANOL (test code = 313505) Negative DRUG SCREEN, [id number] 00:00:00 Test Item Value Reference Range Interpretation Comments AMPHETAMINES (test code = 11696) Negative BARBITURATES (test code = 24119) Negative BENZODIAZEPINES (test code = 24838) Positive COCAINE METABOLITE (test code = Negative 85360) METHADONE (test code = 73432) Negative OPIATES (test code = 566195) Negative PHENCYCLIDINE (test code = 674577) Negative PROPOXYPHENE (test code = 078193) Negative THC (CANNABIS) (test code = 408206) Negative ETHANOL (test code = 391499) Negative DRUG SCREEN, [id number] 00:00:00 Test Item Value Reference Range Interpretation Comments AMPHETAMINES (test code = 48690) Negative BARBITURATES (test code = 39535) Negative BENZODIAZEPINES (test code = 34519) Positive COCAINE METABOLITE (test code = Negative 22563) METHADONE (test code = 84902) Negative OPIATES (test code = 114165) Negative PHENCYCLIDINE (test code = 268792) Negative PROPOXYPHENE (test code = 443919) Negative THC (CANNABIS) (test code = 065550) Negative ETHANOL (test code = 874794) Negative DRUG SCREEN, [id number] 00:00:00 Test Item Value Reference Range Interpretation Comments AMPHETAMINES (test code = 58080) Negative BARBITURATES (test code = 61680) Negative BENZODIAZEPINES (test code = 53511) Positive COCAINE METABOLITE (test code = Negative 24115) METHADONE (test code = 38385) Negative OPIATES (test code = 334915) Negative PHENCYCLIDINE (test code = 222014) Negative PROPOXYPHENE (test code = 843753) Negative THC (CANNABIS) (test code = 733453) Negative ETHANOL (test code = 960444) Negative DRUG SCREEN, [id number] 00:00:00 Test Item Value Reference Range Interpretation Comments AMPHETAMINES (test code = 33375) Negative BARBITURATES (test code = 17299) Negative BENZODIAZEPINES (test code = 85578) Positive COCAINE METABOLITE (test code = Negative 63767) METHADONE (test code = 98456) Negative OPIATES (test code = 649839) Negative PHENCYCLIDINE (test code = 759146) Negative PROPOXYPHENE (test code = 348866) Negative THC (CANNABIS) (test code = 456270) Negative ETHANOL (test code = 421372) Negative BUPRENORPHINE AND [id number] 00:00:00 Test Item Value Reference Range Interpretation Comments NORBUPRENORPHINE (test code = <1.0 ng/mL 08303) BUPRENORPHINE (test code = 55503) <1.0 ng/mL BUPRENORPHINE AND [id number] 00:00:00 Test Item Value Reference Range Interpretation Comments NORBUPRENORPHINE (test code = <1.0 ng/mL 02175) BUPRENORPHINE (test code = 62630) <1.0 ng/mL BUPRENORPHINE AND [id number] 00:00:00 Test Item Value Reference Range Interpretation Comments NORBUPRENORPHINE (test code = <1.0 ng/mL 45833) BUPRENORPHINE (test code = 58488) <1.0 ng/mL BUPRENORPHINE AND [id number] 00:00:00 Test Item Value Reference Range Interpretation Comments NORBUPRENORPHINE (test code = <1.0 ng/mL 44954) BUPRENORPHINE (test code = 04864) <1.0 ng/mL BUPRENORPHINE AND [id number] 00:00:00 Test Item Value Reference Range Interpretation Comments NORBUPRENORPHINE (test code = <1.0 ng/mL 15496) BUPRENORPHINE (test code = 40408) <1.0 ng/mL BUPRENORPHINE AND [id number] 00:00:00 Test Item Value Reference Range Interpretation Comments NORBUPRENORPHINE (test code = <1.0 ng/mL 73511) BUPRENORPHINE (test code = 74271) <1.0 ng/mL COMPREHENSIVE METABOLIC [id number] 00:00:00 Test Item Value Reference Range Interpretation Comments GLUCOSE (test code = 2217) 105 MG/DL BUN (test code = 2208) 19 MG/DL CREATININE (test code = 2214) 0.94 MG/DL eGFR AMER. (test code 81 ML/MIN/1.73 = 26019) eGFR NON- AMER. (test 70 ML/MIN/1.73 code = 48407) CALC BUN/CREAT (test code = 20 RATIO [...] code = 2219) 18 U/L COMPREHENSIVE METABOLIC [id number] 00:00:00 Test Item Value Reference Range Interpretation Comments GLUCOSE (test code = 2217) 105 MG/DL BUN (test code = 2208) 19 MG/DL CREATININE (test code = 2214) 0.94 MG/DL eGFR AMER. (test code 81 ML/MIN/1.73 = 18739) eGFR NON- AMER. (test 70 ML/MIN/1.73 code = 39293) CALC BUN/CREAT (test code = 20 RATIO [...] code = 2219) 18 U/L COMPREHENSIVE METABOLIC [id number] 00:00:00 Test Item Value Reference Range Interpretation Comments GLUCOSE (test code = 2217) 105 MG/DL BUN (test code = 2208) 19 MG/DL CREATININE (test code = 2214) 0.94 MG/DL eGFR AMER. (test code 81 ML/MIN/1.73 = 07106) eGFR NON- AMER. (test 70 ML/MIN/1.73 code = 87694) CALC BUN/CREAT (test code = 20 RATIO [...] code = 2219) 18 U/L COMPREHENSIVE METABOLIC [id number] 00:00:00 Test Item Value Reference Range Interpretation Comments GLUCOSE (test code = 2217) 105 MG/DL BUN (test code = 2208) 19 MG/DL CREATININE (test code = 2214) 0.94 MG/DL eGFR AMER. (test code 81 ML/MIN/1.73 = 65637) eGFR NON- AMER. (test 70 ML/MIN/1.73 code = 50635) CALC BUN/CREAT (test code = 20 RATIO [...] code = 2219) 18 U/L COMPREHENSIVE METABOLIC [id number] 00:00:00 Test Item Value Reference Range Interpretation Comments GLUCOSE (test code = 2217) 105 MG/DL BUN (test code = 2208) 19 MG/DL CREATININE (test code = 2214) 0.94 MG/DL eGFR AMER. (test code 81 ML/MIN/1.73 = 68182) eGFR NON- AMER. (test 70 ML/MIN/1.73 code = 66502) CALC BUN/CREAT (test code = 20 RATIO [...] BILIRUBIN, TOTAL (test code = 0.3 MG/DL 220) ALKALINE PHOSPHATASE (test 122 U/L code = 2204) AST (test code = 2218) 19 U/L ALT (test code = 2219) 18 U/L COMPREHENSIVE METABOLIC [id number] 00:00:00 Test Item Value Reference Range Interpretation Comments GLUCOSE (test code = 2217) 105 MG/DL BUN (test code = 2208) 19 MG/DL CREATININE (test code = 2214) 0.94 MG/DL eGFR AMER. (test code 81 ML/MIN/1.73 = 11189) eGFR NON- AMER. (test 70 ML/MIN/1.73 code = 29007) CALC BUN/CREAT (test code = 20 RATIO [...] code = 2219) 18 U/L DRUG SCREEN, [id number] 00:00:00 Test Item Value Reference Range Interpretation Comments AMPHETAMINES (test code = 75100) Negative BARBITURATES (test code = 74784) Negative BENZODIAZEPINES (test code = 64834) Negative COCAINE METABOLITE (test code = Negative 56221) METHADONE (test code = 55662) Negative OPIATES (test code = 107537) Negative PHENCYCLIDINE (test code = 906575) Negative PROPOXYPHENE (test code = 858888) Negative THC (CANNABIS) (test code = 683990) Negative ETHANOL (test code = 884520) Negative DRUG SCREEN, [id number] 00:00:00 Test Item Value Reference Range Interpretation Comments AMPHETAMINES (test code = 16348) Negative BARBITURATES (test code = 47727) Negative BENZODIAZEPINES (test code = 44712) Negative COCAINE METABOLITE (test code = Negative 69700) METHADONE (test code = 40148) Negative OPIATES (test code = 494265) Negative PHENCYCLIDINE (test code = 375961) Negative PROPOXYPHENE (test code = 345568) Negative THC (CANNABIS) (test code = 979637) Negative ETHANOL (test code = 006307) Negative DRUG SCREEN, [id number] 00:00:00 Test Item Value Reference Range Interpretation Comments AMPHETAMINES (test code = 42321) Negative BARBITURATES (test code = 96710) Negative BENZODIAZEPINES (test code = 75024) Negative COCAINE METABOLITE (test code = Negative 01502) METHADONE (test code = 87458) Negative OPIATES (test code = 993789) Negative PHENCYCLIDINE (test code = 820124) Negative PROPOXYPHENE (test code = 815355) Negative THC (CANNABIS) (test code = 006083) Negative ETHANOL (test code = 290609) Negative DRUG SCREEN, [id number] 00:00:00 Test Item Value Reference Range Interpretation Comments AMPHETAMINES (test code = 16249) Negative BARBITURATES (test code = 23354) Negative BENZODIAZEPINES (test code = 74413) Negative COCAINE METABOLITE (test code = Negative 50792) METHADONE (test code = 25838) Negative OPIATES (test code = 149481) Negative PHENCYCLIDINE (test code = 802018) Negative PROPOXYPHENE (test code = 858573) Negative THC (CANNABIS) (test code = 840916) Negative ETHANOL (test code = 023840) Negative DRUG SCREEN, [id number] 00:00:00 Test Item Value Reference Range Interpretation Comments AMPHETAMINES (test code = 12025) Negative BARBITURATES (test code = 16799) Negative BENZODIAZEPINES (test code = 72014) Negative COCAINE METABOLITE (test code = Negative 62301) METHADONE (test code = 66844) Negative OPIATES (test code = 824945) Negative PHENCYCLIDINE (test code = 376218) Negative PROPOXYPHENE (test code = 862583) Negative THC (CANNABIS) (test code = 671408) Negative ETHANOL (test code = 085743) Negative DRUG SCREEN, [id number] 00:00:00 Test Item Value Reference Range Interpretation Comments AMPHETAMINES (test code = 32418) Negative BARBITURATES (test code = 41597) Negative BENZODIAZEPINES (test code = 25353) Negative COCAINE METABOLITE (test code = Negative 87394) METHADONE (test code = 55649) Negative OPIATES (test code = 457627) Negative PHENCYCLIDINE (test code = 579092) Negative PROPOXYPHENE (test code = 577474) Negative THC (CANNABIS) (test code = 851104) Negative ETHANOL (test code = 012830) Negative CBC W/AUTO [id number] 00:00:00 Test Item Value Reference Range Interpretation [...] code = 1015) 307 K/UL CBC W/AUTO [id number] 00:00:00 Test Item Value Reference Range Interpretation [...] code = 1015) 307 K/UL CBC W/AUTO [id number] 00:00:00 Test Item Value Reference Range Interpretation [...] code = 1015) 307 K/UL CBC W/AUTO [id number] 00:00:00 Test Item Value Reference Range Interpretation [...] code = 1015) 307 K/UL CBC W/AUTO [id number] 00:00:00 Test Item Value Reference Range Interpretation [...] code = 1015) 307 K/UL CBC W/AUTO [id number] 00:00:00 Test Item Value Reference Range Interpretation [...] code = 1015) 307 K/UL CBC W/AUTO [id number] 00:00:00 Test Item Value Reference Range Interpretation [...] code = 1015) 307 K/UL CBC W/AUTO [id number] 00:00:00 Test Item Value Reference Range Interpretation [...] code = 1015) 307 K/UL CBC W/AUTO [id number] 00:00:00 Test Item Value Reference Range Interpretation [...] code = 1015) 307 K/UL DRUG SCREEN, [id number] 00:00:00 Test Item Value Reference Range Interpretation Comments AMPHETAMINES (test code = 44217) Negative BARBITURATES (test code = 14312) Negative BENZODIAZEPINES (test code = 82328) Positive COCAINE METABOLITE (test code = Negative 11645) METHADONE (test code = 65889) Negative OPIATES (test code = 673329) Negative PHENCYCLIDINE (test code = 400848) Negative PROPOXYPHENE (test code = 114713) Negative THC (CANNABIS) (test code = 700555) Negative ETHANOL (test code = 752875) Negative DRUG SCREEN, [id number] 00:00:00 Test Item Value Reference Range Interpretation Comments AMPHETAMINES (test code = 85146) Negative BARBITURATES (test code = 07280) Negative BENZODIAZEPINES (test code = 25227) Positive COCAINE METABOLITE (test code = Negative 22927) METHADONE (test code = 82174) Negative OPIATES (test code = 625632) Negative PHENCYCLIDINE (test code = 608507) Negative PROPOXYPHENE (test code = 114497) Negative THC (CANNABIS) (test code = 893567) Negative ETHANOL (test code = 028101) Negative DRUG SCREEN, [id number] 00:00:00 Test Item Value Reference Range Interpretation Comments AMPHETAMINES (test code = 22630) Negative BARBITURATES (test code = 27121) Negative BENZODIAZEPINES (test code = 44512) Positive COCAINE METABOLITE (test code = Negative 64326) METHADONE (test code = 84099) Negative OPIATES (test code = 743378) Negative PHENCYCLIDINE (test code = 342064) Negative PROPOXYPHENE (test code = 669202) Negative THC (CANNABIS) (test code = 537962) Negative ETHANOL (test code = 057990) Negative DRUG SCREEN, [id number] 00:00:00 Test Item Value Reference Range Interpretation Comments AMPHETAMINES (test code = 78730) Negative BARBITURATES (test code = 50350) Negative BENZODIAZEPINES (test code = 49359) Positive COCAINE METABOLITE (test code = Negative 92487) METHADONE (test code = 19293) Negative OPIATES (test code = 090662) Negative PHENCYCLIDINE (test code = 701483) Negative PROPOXYPHENE (test code = 148668) Negative THC (CANNABIS) (test code = 217505) Negative ETHANOL (test code = 688672) Negative DRUG SCREEN, [id number] 00:00:00 Test Item Value Reference Range Interpretation Comments AMPHETAMINES (test code = 86460) Negative BARBITURATES (test code = 93335) Negative BENZODIAZEPINES (test code = 39899) Positive COCAINE METABOLITE (test code = Negative 94085) METHADONE (test code = 55858) Negative OPIATES (test code = 209723) Negative PHENCYCLIDINE (test code = 173927) Negative PROPOXYPHENE (test code = 155554) Negative THC (CANNABIS) (test code = 067724) Negative ETHANOL (test code = 225000) Negative DRUG SCREEN, [id number] 00:00:00 Test Item Value Reference Range Interpretation Comments AMPHETAMINES (test code = 19511) Negative BARBITURATES (test code = 38863) Negative BENZODIAZEPINES (test code = 14132) Positive COCAINE METABOLITE (test code = Negative 75679) METHADONE (test code = 95632) Negative OPIATES (test code = 177826) Negative PHENCYCLIDINE (test code = 091721) Negative PROPOXYPHENE (test code = 829590) Negative THC (CANNABIS) (test code = 424962) Negative ETHANOL (test code = 408166) Negative BUPRENORPHINE AND [id number] 00:00:00 Test Item Value Reference Range Interpretation Comments NORBUPRENORPHINE (test code = 2.7 ng/mL 87201) BUPRENORPHINE (test code = 45437) 6.4 ng/mL BUPRENORPHINE AND [id number] 00:00:00 Test Item Value Reference Range Interpretation Comments NORBUPRENORPHINE (test code = 2.7 ng/mL 15017) BUPRENORPHINE (test code = 97169) 6.4 ng/mL BUPRENORPHINE AND [id number] 00:00:00 Test Item Value Reference Range Interpretation Comments NORBUPRENORPHINE (test code = 2.7 ng/mL 60471) BUPRENORPHINE (test code = 46292) 6.4 ng/mL BUPRENORPHINE AND [id number] 00:00:00 Test Item Value Reference Range Interpretation Comments NORBUPRENORPHINE (test code = 2.7 ng/mL 93982) BUPRENORPHINE (test code = 42716) 6.4 ng/mL BUPRENORPHINE AND [id number] 00:00:00 Test Item Value Reference Range Interpretation Comments NORBUPRENORPHINE (test code = 2.7 ng/mL 02815) BUPRENORPHINE (test code = 39379) 6.4 ng/mL BUPRENORPHINE AND [id number] 00:00:00 Test Item Value Reference Range Interpretation Comments NORBUPRENORPHINE (test code = 2.7 ng/mL 89805) BUPRENORPHINE (test code = 15701) 6.4 ng/mL COMPREHENSIVE METABOLIC PANEL [ADDED]2019-06-15 00:00:00 Test Item Value Reference Range Interpretation Comments GLUCOSE (test code = 2217) 112 MG/DL BUN (test code = 2208) 32 MG/DL CREATININE (test code = 2214) 1.18 MG/DL eGFR AMER. (test code 62 ML/MIN/1.73 = 27520) eGFR NON- AMER. (test 53 ML/MIN/1.73 code = 95968) CALC BUN/CREAT (test code = 27 RATIO [...] A/G RATIO (test code = 1.4 RATIO 4) BILIRUBIN, TOTAL (test code = <0.2 MG/DL [...] eGFR AMER. (test code 62 ML/MIN/1.73 = 94563) eGFR NON- AMER. (test 53 ML/MIN/1.73 code = 81489) CALC BUN/CREAT (test code = 27 RATIO [...] ALKALINE PHOSPHATASE (test 122 U/L code = 220) AST (test code = 2218) 13 U/L [...] eGFR AMER. (test code 62 ML/MIN/1.73 = 55221) eGFR NON- AMER. (test 53 ML/MIN/1.73 code = 68084) CALC BUN/CREAT (test code = 27 RATIO [...] eGFR AMER. (test code 62 ML/MIN/1.73 = 18640) eGFR NON- AMER. (test 53 ML/MIN/1.73 code = 14428) CALC BUN/CREAT (test code = 27 RATIO [...] eGFR AMER. (test code 62 ML/MIN/1.73 = 88603) eGFR NON- AMER. (test 53 ML/MIN/1.73 code = 74804) CALC BUN/CREAT (test code = 27 RATIO [...] eGFR AMER. (test code 62 ML/MIN/1.73 = 29003) eGFR NON- AMER. (test 53 ML/MIN/1.73 code = 98856) CALC BUN/CREAT (test code = 27 RATIO [...] Comments HYDROXYALPRAZOLAM INTERP (test code Positive = 64511) HYDROXYALPRAZOLAM QNT (test code = 883 ng/mL 440298) LORAZEPAM INTERP (test code = Negative 06239) LORAZEPAM QNT (test code = 60220) <50 ng/mL OXAZEPAM INTERP (test code = 72929) Negative OXAZEPAM QNT (test code = 58481) <50 ng/mL TEMAZEPAM INTERP (test code = Negative 053736) TEMAZEPAM QNT (test code = 475830) <50 ng/mL NORDIAZEPAM INTERP (test code = Negative 10165) NORDIAZEPAM QNT (test code = 90185) <50 ng/mL MB-MOLIU-LOUQABANWY INTERP (test Negative code = 050940) BT-XYTZW-WYXLMFAKLF QNT (test code <50 ng/mL = 698602) 7-AMINOCLONAZEPAM INTERP (test code Negative = 360270) 7-AMINOCLONAZEPAM QNT (test code = <50 ng/mL 447232) 7-AMINOFLUNITRAZEPAM INTERP (test Negative code = 876530) 7-AMINOFLUNITRAZEPAM QNT (test code <50 ng/mL = 648482) HYDROXYTRIAZOLAM INTERP (test code Negative = 599170) HYDROXYTRIAZOLAM QNT (test code = <50 ng/mL 909097) BENZODIAZEPINE, QUANT, URINE [REFLEX]2019-05-26 00:00:00 Test Item Value Reference Range Interpretation Comments HYDROXYALPRAZOLAM INTERP (test code Positive = 02895) HYDROXYALPRAZOLAM QNT (test code = 883 ng/mL 812678) LORAZEPAM INTERP (test code = Negative 59896) LORAZEPAM QNT (test code = 19526) <50 ng/mL OXAZEPAM INTERP (test code = 24061) Negative OXAZEPAM QNT (test code = 54880) <50 ng/mL TEMAZEPAM INTERP (test code = Negative 894368) TEMAZEPAM QNT (test code = 760403) <50 ng/mL NORDIAZEPAM INTERP (test code = Negative 43772) NORDIAZEPAM QNT (test code = 25154) <50 ng/mL UR-TOMKB-EJFTQHDCGT INTERP (test Negative code = 134053) IR-RZOMC-IJJTVUJZHW QNT (test code <50 ng/mL = 786916) 7-AMINOCLONAZEPAM INTERP (test code Negative = 817635) 7-AMINOCLONAZEPAM QNT (test code = <50 ng/mL 188771) 7-AMINOFLUNITRAZEPAM INTERP (test Negative code = 013862) 7-AMINOFLUNITRAZEPAM QNT (test code <50 ng/mL = 117405) HYDROXYTRIAZOLAM INTERP (test code Negative = 164182) HYDROXYTRIAZOLAM QNT (test code = <50 ng/mL 458370) BUPRENORPHINE, QUANT, URINE [REFLEX]2019-05-26 00:00:00 Test Item Value Reference Range Interpretation Comments BUPRENORPHINE INTERP (test code = Positive 02453) BUPRENORPHINE QNT (test code = 65 ng/mL 03101) BENZODIAZEPINE, QUANT, URINE [REFLEX]2019-05-26 00:00:00 Test Item Value Reference Range Interpretation Comments HYDROXYALPRAZOLAM INTERP (test code Positive = 48253) HYDROXYALPRAZOLAM QNT (test code = 883 ng/mL 176103) LORAZEPAM INTERP (test code = Negative 93138) LORAZEPAM QNT (test code = 58090) <50 ng/mL OXAZEPAM INTERP (test code = 93546) Negative OXAZEPAM QNT (test code = 01228) <50 ng/mL TEMAZEPAM INTERP (test code = Negative 676378) TEMAZEPAM QNT (test code = 043488) <50 ng/mL NORDIAZEPAM INTERP (test code = Negative 51892) NORDIAZEPAM QNT (test code = 41891) <50 ng/mL EL-LPTZO-GHVTTOQPBG INTERP (test Negative code = 837828) DP-NNNHB-PYKAGEVLRV QNT (test code <50 ng/mL = 772881) 7-AMINOCLONAZEPAM INTERP (test code Negative = 193153) 7-AMINOCLONAZEPAM QNT (test code = <50 ng/mL 752416) 7-AMINOFLUNITRAZEPAM INTERP (test Negative code = 744613) 7-AMINOFLUNITRAZEPAM QNT (test code <50 ng/mL = 974986) HYDROXYTRIAZOLAM INTERP (test code Negative = 219264) HYDROXYTRIAZOLAM QNT (test code = <50 ng/mL 616156) BENZODIAZEPINE, QUANT, URINE [REFLEX]2019-05-26 00:00:00 Test Item Value Reference Range Interpretation Comments HYDROXYALPRAZOLAM INTERP (test code Positive = 74284) HYDROXYALPRAZOLAM QNT (test code = 883 ng/mL 475083) LORAZEPAM INTERP (test code = Negative 22138) LORAZEPAM QNT (test code = 68704) <50 ng/mL OXAZEPAM INTERP (test code = 21834) Negative OXAZEPAM QNT (test code = 95068) <50 ng/mL TEMAZEPAM INTERP (test code = Negative 416134) TEMAZEPAM QNT (test code = 507275) <50 ng/mL NORDIAZEPAM INTERP (test code = Negative 27163) NORDIAZEPAM QNT (test code = 47292) <50 ng/mL LN-AYOWQ-NILHQWWQPS INTERP (test Negative code = 044535) DV-ELTAO-DQKPRELWTM QNT (test code <50 ng/mL = 899343) 7-AMINOCLONAZEPAM INTERP (test code Negative = 812035) 7-AMINOCLONAZEPAM QNT (test code = <50 ng/mL 432065) 7-AMINOFLUNITRAZEPAM INTERP (test Negative code = 306004) 7-AMINOFLUNITRAZEPAM QNT (test code <50 ng/mL = 905099) HYDROXYTRIAZOLAM INTERP (test code Negative = 743254) HYDROXYTRIAZOLAM QNT (test code = <50 ng/mL 796541) BUPRENORPHINE, QUANT, URINE [REFLEX]2019-05-26 00:00:00 Test Item Value Reference Range Interpretation Comments BUPRENORPHINE INTERP (test code = Positive 61545) BUPRENORPHINE QNT (test code = 65 ng/mL 46496) BENZODIAZEPINE, QUANT, URINE [REFLEX]2019-05-26 00:00:00 Test Item Value Reference Range Interpretation Comments HYDROXYALPRAZOLAM INTERP (test code Positive = 93025) HYDROXYALPRAZOLAM QNT (test code = 883 ng/mL 343080) LORAZEPAM INTERP (test code = Negative 26116) LORAZEPAM QNT (test code = 66554) <50 ng/mL OXAZEPAM INTERP (test code = 02981) Negative OXAZEPAM QNT (test code = 61168) <50 ng/mL TEMAZEPAM INTERP (test code = Negative 756336) TEMAZEPAM QNT (test code = 129929) <50 ng/mL NORDIAZEPAM INTERP (test code = Negative 31071) NORDIAZEPAM QNT (test code = 90201) <50 ng/mL QU-YXAKA-IATYIKKFKB INTERP (test Negative code = 824378) YK-ASJHH-UFWPITJHTA QNT (test code <50 ng/mL = 969654) 7-AMINOCLONAZEPAM INTERP (test code Negative = 115834) 7-AMINOCLONAZEPAM QNT (test code = <50 ng/mL 400991) 7-AMINOFLUNITRAZEPAM INTERP (test Negative code = 850186) 7-AMINOFLUNITRAZEPAM QNT (test code <50 ng/mL = 988356) HYDROXYTRIAZOLAM INTERP (test code Negative = 301596) HYDROXYTRIAZOLAM QNT (test code = <50 ng/mL 735667) BENZODIAZEPINE, QUANT, URINE [REFLEX]2019-05-26 00:00:00 Test Item Value Reference Range Interpretation Comments HYDROXYALPRAZOLAM INTERP (test code Positive = 88351) HYDROXYALPRAZOLAM QNT (test code = 883 ng/mL 536372) LORAZEPAM INTERP (test code = Negative 53057) LORAZEPAM QNT (test code = 07439) <50 ng/mL OXAZEPAM INTERP (test code = 23328) Negative OXAZEPAM QNT (test code = 67852) <50 ng/mL TEMAZEPAM INTERP (test code = Negative 581176) TEMAZEPAM QNT (test code = 617678) <50 ng/mL NORDIAZEPAM INTERP (test code = Negative 44688) NORDIAZEPAM QNT (test code = 12386) <50 ng/mL VI-MOEWU-XNPSJKYREO INTERP (test Negative code = 344375) LX-UIOZX-AHSYYILNXJ QNT (test code <50 ng/mL = 482253) 7-AMINOCLONAZEPAM INTERP (test code Negative = 851190) 7-AMINOCLONAZEPAM QNT (test code = <50 ng/mL 111203) 7-AMINOFLUNITRAZEPAM INTERP (test Negative code = 811314) 7-AMINOFLUNITRAZEPAM QNT (test code <50 ng/mL = 484311) HYDROXYTRIAZOLAM INTERP (test code Negative = 801545) HYDROXYTRIAZOLAM QNT (test code = <50 ng/mL 643856) BUPRENORPHINE, QUANT, URINE [REFLEX]2019-05-26 00:00:00 Test Item Value Reference Range Interpretation Comments BUPRENORPHINE INTERP (test code = Positive 77451) BUPRENORPHINE QNT (test code = 65 ng/mL 24606) CBC W/AUTO [id number] 00:00:00 Test Item Value Reference Range Interpretation [...] code = 1015) 320 K/UL CBC W/AUTO [id number] 00:00:00 Test Item Value Reference Range Interpretation [...] code = 1015) 320 K/UL CBC W/AUTO [id number] 00:00:00 Test Item Value Reference Range Interpretation [...] code = 1015) 320 K/UL COMPREHENSIVE METABOLIC [id number] 00:00:00 Test Item Value Reference Range Interpretation Comments GLUCOSE (test code = 2217) 121 MG/DL BUN (test code = 2208) 25 MG/DL CREATININE (test code = 2214) 1.01 MG/DL eGFR AMER. (test code 75 ML/MIN/1.73 = 33315) eGFR NON- AMER. (test 64 ML/MIN/1.73 code = 97164) CALC BUN/CREAT (test code = 25 RATIO [...] code = 2219) 11 U/L COMPREHENSIVE METABOLIC [id number] 00:00:00 Test Item Value Reference Range Interpretation Comments GLUCOSE (test code = 2217) 121 MG/DL BUN (test code = 2208) 25 MG/DL CREATININE (test code = 2214) 1.01 MG/DL eGFR AMER. (test code 75 ML/MIN/1.73 = 39598) eGFR NON- AMER. (test 64 ML/MIN/1.73 code = 95215) CALC BUN/CREAT (test code = 25 RATIO [...] INTERPRETATION HEPATITIS B: (NOTE) (test code = 11566) INTERPRETATION HEPATITIS C: (NOTE) (test code = 13571) HEPATITIS PROFILE (A,B,C)2019-05-25 00:00:00 Test Item Value [...] INTERPRETATION HEPATITIS B: (NOTE) (test code = 69461) INTERPRETATION HEPATITIS C: (NOTE) (test code = 10682) HIV AB/AG COMBO RFLX [id number] 00:00:00 Test Item Value Reference Range Interpretation Comments HIV 1/2 4TH GEN, RFLX CONF (test NON-REACTIVE code = 3514) HIV AB/AG COMBO RFLX [id number] 00:00:00 Test Item Value Reference Range Interpretation Comments HIV 1/2 4TH GEN, RFLX CONF (test NON-REACTIVE code = 3514) DRUG ABUSE PANEL 10 WITH [id number] 00:00:00 Test Item Value Reference Range Interpretation Comments AMPHETAMINES (test code = NEGATIVE 3201) BARBITURATES (test code = NEGATIVE 3202) BENZODIAZEPINES (test code SEE REFLEX TESTING = 3203) CANNABINOIDS (test code = NEGATIVE 3204) COCAINE METABOLITE (test NEGATIVE code = 3205) OPIATES (test code = 3209) NEGATIVE OXYCODONE (test code = NEGATIVE 18160) PHENCYCLIDINE (test code = NEGATIVE 3210) METHADONE (test code = NEGATIVE 3207) BUPRENORPHINE (test code = SEE REFLEX TESTING 78625) DRUG ABUSE PANEL 10 WITH [id number] 00:00:00 Test Item Value Reference Range Interpretation Comments AMPHETAMINES (test code = NEGATIVE 3201) BARBITURATES (test code = NEGATIVE 3202) BENZODIAZEPINES (test code SEE REFLEX TESTING = 3203) CANNABINOIDS (test code = NEGATIVE 3204) COCAINE METABOLITE (test NEGATIVE code = 3205) OPIATES (test code = 3209) NEGATIVE OXYCODONE (test code = NEGATIVE 64696) PHENCYCLIDINE (test code = NEGATIVE 3210) METHADONE (test code = NEGATIVE 3207) BUPRENORPHINE (test code = SEE REFLEX TESTING 61014) CBC W/AUTO [id number] 00:00:00 Test Item Value Reference Range Interpretation [...] code = 1015) 320 K/UL CBC W/AUTO [id number] 00:00:00 Test Item Value Reference Range Interpretation [...] code = 1015) 320 K/UL CBC W/AUTO [id number] 00:00:00 Test Item Value Reference Range Interpretation [...] code = 1015) 320 K/UL COMPREHENSIVE METABOLIC [id number] 00:00:00 Test Item Value Reference Range Interpretation Comments GLUCOSE (test code = 2217) 121 MG/DL BUN (test code = 2208) 25 MG/DL CREATININE (test code = 2214) 1.01 MG/DL eGFR AMER. (test code 75 ML/MIN/1.73 = 67496) eGFR NON- AMER. (test 64 ML/MIN/1.73 code = 84955) CALC BUN/CREAT (test code = 25 RATIO [...] code = 2219) 11 U/L COMPREHENSIVE METABOLIC [id number] 00:00:00 Test Item Value Reference Range Interpretation Comments GLUCOSE (test code = 2217) 121 MG/DL BUN (test code = 2208) 25 MG/DL CREATININE (test code = 2214) 1.01 MG/DL eGFR AMER. (test code 75 ML/MIN/1.73 = 79947) eGFR NON- AMER. (test 64 ML/MIN/1.73 code = 81970) CALC BUN/CREAT (test code = 25 RATIO [...] INTERPRETATION HEPATITIS B: (NOTE) (test code = 53219) INTERPRETATION HEPATITIS C: (NOTE) (test code = 91738) HEPATITIS PROFILE (A,B,C)2019-05-25 00:00:00 Test Item Value [...] INTERPRETATION HEPATITIS B: (NOTE) (test code = 67349) INTERPRETATION HEPATITIS C: (NOTE) (test code = 36628) HIV AB/AG COMBO RFLX [id number] 00:00:00 Test Item Value Reference Range Interpretation Comments HIV 1/2 4TH GEN, RFLX CONF (test NON-REACTIVE code = 3514) HIV AB/AG COMBO RFLX [id number] 00:00:00 Test Item Value Reference Range Interpretation Comments HIV 1/2 4TH GEN, RFLX CONF (test NON-REACTIVE code = 3514) DRUG ABUSE PANEL 10 WITH [id number] 00:00:00 Test Item Value Reference Range Interpretation Comments AMPHETAMINES (test code = NEGATIVE 3201) BARBITURATES (test code = NEGATIVE 3202) BENZODIAZEPINES (test code SEE REFLEX TESTING = 3203) CANNABINOIDS (test code = NEGATIVE 3204) COCAINE METABOLITE (test NEGATIVE code = 3205) OPIATES (test code = 3209) NEGATIVE OXYCODONE (test code = NEGATIVE 20881) PHENCYCLIDINE (test code = NEGATIVE 3210) METHADONE (test code = NEGATIVE 3207) BUPRENORPHINE (test code = SEE REFLEX TESTING 00346) DRUG ABUSE PANEL 10 WITH [id number] 00:00:00 Test Item Value Reference Range Interpretation Comments AMPHETAMINES (test code = NEGATIVE 3201) BARBITURATES (test code = NEGATIVE 3202) BENZODIAZEPINES (test code SEE REFLEX TESTING = 3203) CANNABINOIDS (test code = NEGATIVE 3204) COCAINE METABOLITE (test NEGATIVE code = 3205) OPIATES (test code = 3209) NEGATIVE OXYCODONE (test code = NEGATIVE 43590) PHENCYCLIDINE (test code = NEGATIVE 3210) METHADONE (test code = NEGATIVE 3207) BUPRENORPHINE (test code = SEE REFLEX TESTING 83695) CBC W/AUTO [id number] 00:00:00 Test Item Value Reference Range Interpretation [...] code = 1015) 320 K/UL CBC W/AUTO [id number] 00:00:00 Test Item Value Reference Range Interpretation [...] code = 1015) 320 K/UL CBC W/AUTO [id number] 00:00:00 Test Item Value Reference Range Interpretation [...] code = 1015) 320 K/UL COMPREHENSIVE METABOLIC [id number] 00:00:00 Test Item Value Reference Range Interpretation Comments GLUCOSE (test code = 2217) 121 MG/DL BUN (test code = 2208) 25 MG/DL CREATININE (test code = 2214) 1.01 MG/DL eGFR AMER. (test code 75 ML/MIN/1.73 = 64126) eGFR NON- AMER. (test 64 ML/MIN/1.73 code = 34193) CALC BUN/CREAT (test code = 25 RATIO [...] code = 2219) 11 U/L COMPREHENSIVE METABOLIC [id number] 00:00:00 Test Item Value Reference Range Interpretation Comments GLUCOSE (test code = 2217) 121 MG/DL BUN (test code = 2208) 25 MG/DL CREATININE (test code = 2214) 1.01 MG/DL eGFR AMER. (test code 75 ML/MIN/1.73 = 16233) eGFR NON- AMER. (test 64 ML/MIN/1.73 code = 59471) CALC BUN/CREAT (test code = 25 RATIO [...] INTERPRETATION HEPATITIS B: (NOTE) (test code = 28123) INTERPRETATION HEPATITIS C: (NOTE) (test code = 65659) HEPATITIS PROFILE (A,B,C)2019-05-25 00:00:00 Test Item Value [...] INTERPRETATION HEPATITIS B: (NOTE) (test code = 50962) INTERPRETATION HEPATITIS C: (NOTE) (test code = 59086) HIV AB/AG COMBO RFLX [id number] 00:00:00 Test Item Value Reference Range Interpretation Comments HIV 1/2 4TH GEN, RFLX CONF (test NON-REACTIVE code = 3514) HIV AB/AG COMBO RFLX [id number] 00:00:00 Test Item Value Reference Range Interpretation Comments HIV 1/2 4TH GEN, RFLX CONF (test NON-REACTIVE code = 3514) DRUG ABUSE PANEL 10 WITH [id number] 00:00:00 Test Item Value Reference Range Interpretation Comments AMPHETAMINES (test code = NEGATIVE 3201) BARBITURATES (test code = NEGATIVE 3202) BENZODIAZEPINES (test code SEE REFLEX TESTING = 3203) CANNABINOIDS (test code = NEGATIVE 3204) COCAINE METABOLITE (test NEGATIVE code = 3205) OPIATES (test code = 3209) NEGATIVE OXYCODONE (test code = NEGATIVE 78781) PHENCYCLIDINE (test code = NEGATIVE 3210) METHADONE (test code = NEGATIVE 3207) BUPRENORPHINE (test code = SEE REFLEX TESTING 17033) DRUG ABUSE PANEL 10 WITH [id number] 00:00:00 Test Item Value Reference Range Interpretation Comments AMPHETAMINES (test code = NEGATIVE 3201) BARBITURATES (test code = NEGATIVE 3202) BENZODIAZEPINES (test code SEE REFLEX TESTING = 3203) CANNABINOIDS (test code = NEGATIVE 3204) COCAINE METABOLITE (test NEGATIVE code = 3205) OPIATES (test code = 3209) NEGATIVE OXYCODONE (test code = NEGATIVE 90169) PHENCYCLIDINE (test code = NEGATIVE 3210) METHADONE (test code = NEGATIVE 3207) BUPRENORPHINE (test code = SEE REFLEX TESTING 62226)
--- NOTE | 2022-03-04 15:50 | RAD REPORT ---
EXAM DESCRIPTION: RAD - Knee Right 3 View - 03/04/2022 3:40 pm CLINICAL HISTORY: PAIN COMPARISON: Knee Right 3 View dated 12/15/2020 FINDINGS: No fracture, dislocation or periosteal reaction.Moderately large joint effusion is present new from the 2020 study. Patient has medial and lateral compartment marginal spurring as well as sig nificant spurring of the patella articular margins. Patella femoral joint space is narrowed. Degenera tive changes are not significantly different from comparison. No foreign body or other soft tissue ab normality. IMPRESSION: Moderate joint effusion new from prior 2020 imaging. Knee joint degenerative change similar to comparison. No acute bone finding. Clinical concerns for internal derangement or occult bony injury could be further assessed with MR im aging.
--- NOTE | 2022-03-04 16:03 | ER ---
Nurse's Notes [facility] Name: Tabatha Chambers Age: 56 yrs Sex: Female : 1965 Arrival Date: 03/04/2022 Time: 13:52 Bed IW4 Private MD: Diagnosis: Effusion, right knee Presentation: 03/04 14:51 Chief complaint: Patient states: Bilateral knee pain after falling 1 week ago. ss Coronavirus screen: Client denies travel out of the [place] in the last 14 days. Ebola Screen: Patient denies exposure to infectious person. Patient denies travel to an Ebola-affected area in the 21 days before illness onset. 14:51 Method Of Arrival: Wheelchair ss 14:54 Initial Sepsis Screen: Does the patient meet any 2 criteria? No. Patient's initial ss sepsis screen is negative. Does the patient have a suspected source of infection? No. Patient's initial sepsis screen is negative. Risk Assessment: Do you want to hurt yourself or someone else? Patient reports no desire to harm self or others. Onset of symptoms was February 25, 2022. 14:54 Acuity: VERO 4 ss Historical: - Allergies: 14:54 No Known Allergies; ss - PMHx: 14:54 Hypertension; Seizures; ss - PSHx: 14:54 ankle SX; Cholecystectomy; tubes tied; ss - Immunization history:: Client reports having NOT received the Covid vaccine. - Social history:: Smoking status: Patient denies any tobacco usage or history of. Vital Signs: 14:51 Resp 17; Temp 98.1(O); Weight 113.4 kg; Height 5 ft. 4 in. (162.56 cm); Pain 10/10; ss 14:55 Pulse 101; Pulse Ox 98% ; ss 14:51 Body Mass Index 42.91 (113.40 kg, 162.56 cm) ED Course: 13:52 Patient arrived in ED. am2 14:02 [facility] snw 14:02 Rickie Alcocer MD is Attending Physician. snw 14:54 Triage completed. ss 14:54 Arm band placed on right wrist. ss 15:42 Knee Right 3 View XRAY In Process Unspecified. EDMS 16:27 Ochoa wrap to right knee. ss 16:29 No provider procedures requiring assistance completed. Patient did not have IV access ss during this emergency room visit. Administered Medications: 16: Drug: Ketorolac 60 mg Route: IM; Site: left deltoid; 16: Drug: traMADol 50 mg Route: PO; Outcome: 16:02 Discharge ordered by . snw 16: Discharged to home via wheelchair. ss 16: Condition: good 16:29 Discharge instructions given to patient, Instructed on discharge instructions, follow up and referral plans. medication usage, Demonstrated understanding of instructions, follow-up care, medications, Prescriptions given X 3. 16:29 Patient left the ED. Signatures: Dispatcher [employer] EDMS Mari Holguin, [employer]-C [employer]-Johana Lawler RN RN Maru Ingram
--- NOTE | 2022-03-04 16:03 | EDPHYS ---
Physician Documentation [facility] Name: Tabatha Chambers Age: 56 yrs Sex: Female : 1965 Arrival Date: 03/04/2022 Time: 13:52 Bed IW4 Private MD: ED Physician Rickie Alcocer HPI: 03/04 14:41 This 56 yrs old Female presents to ER via Unassigned with complaints of Knee snw Pain. 14:41 The patient presents with decreased range of motion, an injury, pain, tenderness. The snw complaints affect the right knee. Context: resulted from the patient falling, while walking, the patient can partially bear weight, must have assistance. Onset: The symptoms/episode began/occurred 1 week(s) ago, and became persistent. Associated signs and symptoms: The patient has no apparent associated signs or symptoms. Severity of symptoms: At their worst the symptoms were moderate, in the emergency department the symptoms are unchanged. It is unknown whether or not the patient has had similar symptoms in the past. Historical: - Allergies: 14:54 No Known Allergies; ss - PMHx: 14:54 Hypertension; Seizures; ss - PSHx: 14:54 ankle SX; Cholecystectomy; tubes tied; ss - Immunization history:: Client reports having NOT received the Covid vaccine. - Social history:: Smoking status: Patient denies any tobacco usage or history of. ROS: 14:40 Constitutional: Negative for fever, chills, and weight loss, Eyes: Negative for injury, snw pain, redness, and discharge, ENT: Negative for injury, pain, and discharge, Neck: Negative for injury, pain, and swelling, Cardiovascular: Negative for chest pain, palpitations, and edema, Respiratory: Negative for shortness of breath, cough, wheezing, and pleuritic chest pain, Abdomen/GI: Negative for abdominal pain, nausea, vomiting, diarrhea, and constipation, Back: Negative for injury and pain, : Negative for injury, bleeding, discharge, and swelling, Skin: Negative for injury, rash, and discoloration, Neuro: Negative for headache, weakness, numbness, tingling, and seizure, Psych: Negative for depression, anxiety, suicide ideation, homicidal ideation, and hallucinations. 14:40 MS/extremity: Positive for injury or acute deformity, pain, tenderness, of the right knee. Exam: 14:39 Constitutional: This is a well developed, well nourished patient who is awake, alert, snw and in no acute distress. Head/Face: Normocephalic, atraumatic. 14:39 ENT: Nares patent. No nasal discharge, no septal abnormalities noted. Tympanic membranes are normal and external auditory canals are clear. Oropharynx with no redness, swelling, or masses, exudates, or evidence of obstruction, uvula midline. Mucous membranes moist. Neck: Trachea midline, no thyromegaly or masses palpated, and no cervical lymphadenopathy. Supple, full range of motion without nuchal rigidity, or vertebral point tenderness. No Meningismus. Chest/axilla: Normal chest wall appearance and motion. Nontender with no deformity. No lesions are appreciated. Cardiovascular: Regular rate and rhythm with a normal S1 and S2. No gallops, murmurs, or rubs. Normal PMI, no JVD. No pulse deficits. Respiratory: Lungs have equal breath sounds bilaterally, clear to auscultation and percussion. No rales, rhonchi or wheezes noted. No increased work of breathing, no retractions or nasal flaring. Abdomen/GI: Soft, non-tender, with normal bowel sounds. No distension or tympany. No guarding or rebound. No evidence of tenderness throughout. Back: No spinal tenderness. No costovertebral tenderness. Full range of motion. 14:39 Neuro: Awake and alert, GCS 15, oriented to person, place, time, and situation. Cranial nerves II-XII grossly intact. Motor strength 5/5 in all extremities. Sensory grossly intact. Cerebellar exam normal. Normal gait. Psych: Awake, alert, with orientation to person, place and time. Behavior, mood, and affect are within normal limits. 14:39 Eyes: Conjunctiva: pale. 14:39 Musculoskeletal/extremity: ROM: limited active range of motion due to pain, limited passive range of motion due to pain, in the right knee, Circulation is intact in all extremities. Sensation intact. Weight bearing: able to fully bear weight, with difficulty, painful ROM, weight bearing. 14:39 Skin: Appearance: Color: pale. Vital Signs: 14:51 Resp 17; Temp 98.1(O); Weight 113.4 kg; Height 5 ft. 4 in. (162.56 cm); Pain 10/10; ss 14:55 Pulse 101; Pulse Ox 98% ; ss 14:51 Body Mass Index 42.91 (113.40 kg, 162.56 cm) ss MDM: 14:42 Patient medically screened. snw 16:03 Data reviewed: vital signs, nurses notes. Data interpreted: Pulse oximetry: on room air snw is 98 %. Interpretation: normal. Counseling: I had a detailed discussion with the patient and/or guardian regarding: the historical points, exam findings, and any diagnostic results supporting the discharge/admit diagnosis, radiology results, the need for outpatient follow up, to return to the emergency department if symptoms worsen or persist or if there are any questions or concerns that arise at home. Special discussion: Based on the history and exam findings, there is no indication for further emergent testing or inpatient evaluation. I discussed with the patient/guardian the need to see the orthopedic surgeon for further evaluation of the symptoms. I discussed with the patient/guardian the need to see the primary care provider for further evaluation of the symptoms. 03/04 14:39 Order name: Knee Right 3 View XRAY; Complete Time: 15:53 snw 03/04 16:01 Order name: Ochoa wrap-joint; Complete Time: 16:27 snw Administered Medications: 16:27 Drug: Ketorolac 60 mg Route: IM; Site: left deltoid; ss 16:27 Drug: traMADol 50 mg Route: PO; ss Disposition: 18:04 Co-signature as Attending Physician, Rickie Alcocer MD I agree with the assessment and rt plan of care. Disposition Summary: 03/04/22 16:02 Discharge Ordered Location: Home snw Condition: Stable snw Diagnosis - Effusion, right knee snw Followup: snw - With: Private Physician - When: 2 - 3 days - Reason: Recheck today's complaints, Continuance of care, Re-evaluation by your physician Discharge Instructions: - Discharge Summary Sheet snw - Knee Effusion snw - Heat Therapy snw - How to Use a Cane snw Forms: - Medication Reconciliation Form snw - Thank You Letter snw - Antibiotic Education snw - Prescription Opioid Use snw Prescriptions: Cane - Mobic 7.5 mg Oral Tablet - take 1 tablet by ORAL route once daily take with food; 20 tablet; Refills: 0, snw Product Selection Permitted - Cyclobenzaprine 10 mg Oral Tablet - take 1 tablet by ORAL route every 8 hours As needed; 30 tablet; Refills: 0, snw Product Selection Permitted Signatures: Dispatcher [employer] Mari Collier FNP-C FNP-Johana Lawler, RN RN ss Rickie Alcocer MD MD rt
[2022-03-04] MEDS ORDERED: TRAMADOL HCL 50 MG TAB ONE (16:27)
[2022-03-04] MEDS ORDERED: KETOROLAC 30 MG/ML INJ ONE (16:27)
[2022-03-04 16:33] VITALS: TEMP 98.1
[2022-03-04 16:34] VITALS: O2SAT 98
== END 2022-03-04 16:29 | disposition home or self-care (01) ==
LOC: ER 13:49
DX: M25.461 Effusion, right knee (principal)

== ENCOUNTER 2022-07-17 23:07 | Emergency (ER) | payer OTHER ==
--- OUTSIDE RECORDS SUMMARY | 2022-07-17 23:18 | XMS REPORT | Continuity of Care Document ---
:1965 Author Organization [facility] t Address [address] [facility] [address] [place] [address] Care Team Providers Name Role Phone DEANDRE JENY Primary Care Physician Unavailable CHRIS SPENCE Attending Clinician Unavailable Doctor Unassigned, [place] Attending Clinician Unavailable JARAD LÓPEZ Attending Clinician Unavailable JARAD LÓPEZ Attending Clinician Unavailable RAAD UREÑA Attending Clinician Unavailable Raad Ureña MD Attending Clinician ILIANA RUIZ Attending Clinician Unavailable Iliana Ruiz MD Attending Clinician Deloris Escobar Attending Clinician [phone] Shelly Taveras Attending Clinician Unavailable Antonietta Garcia Attending Clinician Unavailable Sarika Michael Attending Clinician Unavailable Gail Mosre Attending Clinician ILIANA RUIZ Admitting Clinician Unavailable Deloris Escobar Unavailable [phone] Payers Payer Name Policy Type Policy Number Effective Date Expiration Date S ieshawillem [facility] DUAL [id number] 2020 COMP HMO D SNP 00:00:00 [facility] [id number] 2021 (MEDICARE 00:00:00 REPLACEMENT HMO) [facility] [id number] 2016 MEDICAID 00:00:00 Problems Condition Condition Condition Status Onset Resolution Last Treating Co mments Source Name Details Category Date Date Treatment Clinician Date ANXIETY Condition Active 2018-032019-02-14 Tricia Escobar, 04-17 14:12:47 Deloris Com alexsandra UNSPECIFIE 00:00: ty D 00 Health SCHIZOAFFE Condition Active 2018-032019-02-14 Tico Escobar CTIVE 04-17 14:12:47 Del[facility]is Commun i DISORDER, 00:00: ty DEPRESSIVE 00 Health TYPE, MULT EPIS, CURR ACUTE EPIS Chronic Chronic Disease Active [facility] pain of pain of 1-29 [place] [facility] [place] Chronic Chronic Disease Active [facility] pain of [...] psychotic psychotic ICD10 features features Diagnosis 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 Schizophre Schizophr Problem Active 2017-07-12 Memoria theo enia 15:36:56 l (disorder) (disorder) Sebastian caceres Active Problem 07/12/2017 Medical Group Seen by Seen by Problem Active 2017-07-12 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 15:36:56 l (finding) (finding) Brooke [...] Clinician No Known DA Active U 2020-03 [facility] Drug 0-12 Allergie 00:00: s 00 NO KNOWN Drug Active Univers ALLERGIE Class ity of S [facility] Social History Social Habit Start Date Stop Date Quantity Comments Source History of tobacco Smokes tobacco Un iversity of use daily [facility] Exposure to 2022-03-30 2022-04-09 Not sure [facility]-CoV-2 (event) 00:00:00 11:19:00 [facility] Alcohol intake 2021-09-16 2021-09-16 0 /d University 00:00:00 00:00:00 [facility] social history E&M 2019-02-14 2019-02-14 . mother [...] a divorce. Five kids Not homeless. City: [place] . lives with daughter Highest education level: none-8th grade. unemployed dropped out in 7th grade got ged in 1988Sex at : Female. Sexual orientation: Heterosexual. Gender identity: Female. drug use, illicit 2019-02-14 2019-02-14 [facility] 13:01:12 13:01:12 Health alcohol use 2019-02-14 2019-02-14 [facility] 13:01:12 13:01:12 Health sexual orientation 2019-02-14 2019-02-14 Heterosexual [facility] [employer] [facility] 13:01:12 13:01:12 Health sex at 2019-02-14 [...] kids social history 2019-02-14 2019-02-14 [facility] 13:01:12 13:01:12 Health Social History 2016-12-07 2016-12-07 [facility] brian 16:49:19 16:49:19 Sex [birth year] At [birth year] Universit y of 00:00:00 00:00:00 [facility] Smoking Status Start Date Stop Date Source Ex-smoker (finding) 2019-02-14 13:01:12 2019-02-14 13:01:12 [facility] Smokes tobacco daily 2016-06-09 00:00:00 [facility] Medications Ordered Filled Start Stop Current Ordering [...] 2021-03 No Unknown 2-13 00:00: 00 TAKE 1 2021-03 No TABLET BY 2-13 MOUTH THREE [...] Dose 2021-0 No Unknown 9-09 00:00: 00 Dose 2021-0 No Unknown 9-09 00:00: 00 TAKE No 82 STRIP THREE 9-05 TIMES A DAY 00:00: 00 TAKE No STRIP THREE 9-05 TIMES A DAY 00:00: 00 Dose 2021-0 No Unknown 8-22 00:00: 00 Dose 2021-0 No Unknown 8-22 00:00: 00 Dose 2021-0 No Unknown 8-22 00:00: 00 &lt 2021-0 No 8-15 00:00: 00 &lt 2021-0 No 8-15 00:00: 00 LIDOCAINE/P 2-0 No RILOCAINE 8-15 2.5-2.5 % 00:00: CREA 00 &lt 2-0 No 10 8-12 00:00: 00 ZOLPIDEM 2-0 No TARTRATE 10 8-12 MG TABS 00:00: 00 ZOLPIDEM 2-0 No TARTRATE 10 8-12 MG TABS 00:00: 00 &lt 2022-0 No 8-11 00:00: 00 Dose 2022-0 No Unknown 8-11 00:00: 00 Dose 2022-0 No 200 Unknown 8- 00:00: 00 &lt 2022-0 No 10 8- 00:00: 00 TAKE 1 2021-0 No 1 TABLET (1 8-11 MG TOTAL) 00:00: BY MOUTH 1 00 (ONE) TIME EACH DAY IF NEEDED FOR ANXIETY &lt 2-0 No 8-11 00:00: 00 &lt 2022-0 No 60 8- 00:00: 00 &lt 2022-0 No 8-11 00:00: 00 Dose 2022-0 No Unknown 8 00:00: 00 Dose 2022-0 No 200 Unknown 8 00:00: 00 &lt 2022-0 No 10 8- 00:00: 00 TAKE 1 2021-0 No 1 TABLET (1 8-11 MG TOTAL) 00:00: BY MOUTH 1 00 (ONE) TIME EACH DAY IF NEEDED FOR ANXIETY &lt 2-0 No 8-11 00:00: 00 &lt 2022-0 No 60 8-11 00:00: 00 &lt 2022-0 No 8-11 00:00: 00 Dose 2022-0 No Unknown 8- 00:00: 00 Dose 2022-0 No 200 Unknown 8 00:00: 00 &lt 2022-0 No 10 8- 00:00: 00 TAKE 1 2021-0 No 1 TABLET (1 8-11 MG TOTAL) 00:00: BY MOUTH 1 00 (ONE) TIME EACH DAY IF NEEDED FOR ANXIETY FLUTICASONE 2-0 No 300 PROPIONATE 8- 50 MCG/ACT 00:00: SUSP 00 Dose 2-0 No Unknown 8- 00:00: 00 TAKE 1 2021-0 No 4 TABLET BY 8-10 MOUTH TWICE [...] Suboxone 8 2021-0 No 1mg mg-2 mg - sublingual 00:00: film 00 &lt 2022-0 No 300 10-07 00:00: 00 TAKE 1 2-0 No 100 TABLET BY 8-02 MOUTH AT 00:00: BEDTIME FOR 00 INSOMNIA Dose 2021-0 No 200 Unknown 10-07 00:00: 00 TAKE 1 2021-0 No 1 TABLET (1 8-02 MG TOTAL) 00:00: BY MOUTH 2 00 (TWO) TIMES A DAY IF NEEDED FOR ANXIETY Dose 2021-0 No Unknown 10-07 00:00: 00 TAKE 1 2-0 No 10 TABLET BY 8-02 MOUTH AT 00:00: NIGHT IF 00 NEEDED FOR SLEEP. &lt 2022-0 No 500 10-07 00:00: 00 &lt 2022-0 No 20 10-07 00:00: 00 Suboxone 8 0 No 1mg mg-2 mg - sublingual 00:00: film 00 &lt 2-0 No 300 10-07 00:00: 00 TAKE 1 2-0 No 100 TABLET BY 8-02 MOUTH AT 00:00: BEDTIME FOR 00 INSOMNIA Dose 2-0 No 200 Unknown 10-07 00:00: 00 TAKE 1 2-0 No 1 TABLET (1 8-02 MG TOTAL) 00:00: BY MOUTH 2 00 (TWO) TIMES A DAY IF NEEDED FOR ANXIETY Dose 2-0 No Unknown 10-07 00:00: 00 TAKE 1 2022-0 No 10 TABLET BY 8-02 MOUTH AT 00:00: NIGHT IF 00 NEEDED FOR SLEEP. &lt 2022-0 No 500 10-07 00:00: 00 &lt 2022-0 No 20 10-07 00:00: 00 Dose 2022-0 No Unknown 10-07 00:00: 00 &lt 2022-0 No 300 10-07 00:00: 00 TAKE 1 2022-0 No 100 TABLET BY 10-07 MOUTH AT 00:00: BEDTIME FOR 00 INSOMNIA Dose 2022-0 No 200 Unknown 10-07 00:00: 00 TAKE 1 2-0 No 1 TABLET (1 8-02 MG TOTAL) 00:00: BY MOUTH 2 00 (TWO) TIMES A DAY IF NEEDED FOR ANXIETY Dose 2-0 No Unknown 10-07 00:00: 00 TAKE 1 2-0 No 10 TABLET BY 10-07 MOUTH AT 00:00: NIGHT IF 00 NEEDED FOR SLEEP. &lt 2022-0 No 500 10-07 00:00: 00 &lt 2022-0 No 20 10-07 00:00: 00 &lt 2022-0 No 1 10-06 00:00: 00 &lt 2022-0 No 1 10-06 00:00: 00 &lt 2022-0 No 1 10-06 00:00: 00 TAKE 1 2021-0 No 100 TABLET BY 09-30 MOUTH 3 00:00: TIMES A 00 DAY. &lt 2022-0 No 10 09-30 00:00: 00 TAKE 1 2-0 No 4 TABLET BY 726 MOUTH TWICE 00:00: A DAY 00 NEEDED FOR MUSCLE SPASM &lt 2022-0 No 09-30 00:00: 00 &lt 2022-0 No 60 09-30 00:00: 00 TAKE 1 2-0 No 100 TABLET BY 7- MOUTH 3 [...] TAKE 1 2022-0 No 4 TABLET BY 09-30 MOUTH TWICE 00:00: A DAY 00 NEEDED [...] 00:00: film 00 Dose 2-0 No Unknown 4-12 00:00: 00 Dose 2-0 No Unknown 3-10 [...] 2-0 No Unknown 2-18 00:00: 00 Dose 2-0 No Unknown 2-17 00:00: 00 Dose 2022-0 No Unknown 2-17 00:00: 00 Dose 2022-0 No Unknown 2-17 00:00: 00 Dose 2-0 No Unknown 1-19 00:00: 00 Dose 2022-0 [...] Suboxone 8 2020-1 No 1mg mg-2 mg 0-21 sublingual 00:00: film 00 Suboxone 8 2020-1 No 1mg mg-2 mg 0-21 sublingual 00:00: film 00 Suboxone 8 2020-1 No 1mg mg-2 mg 0-21 sublingual 00:00: [...] Latuda 60 2021-0 No 1mg mg tablet 820 00:00: 00 Dose 2021-0 No Unknown 8-20 00:00: 00 lithium 2021-0 No 3mg carbonate 8-20 300 mg 00:00: capsule 00 Dose 2021-0 No Unknown 820 00:00: 00 alprazolam 2021-0 No mg 1 mg tablet 10-18 00:00: 00 alprazolam 2021-0 No 1mg 1 mg tablet 10-18 00:00: 00 alprazolam 2021-0 No mg 1 mg tablet 10-18 00:00: 00 alprazolam 2021-0 No 1mg 1 mg tablet 8-13 00:00: 00 alprazolam 1-0 No mg 1 mg tablet 10-18 00:00: 00 Dose 2021-0 No Unknown 10-18 00:00: 00 Suboxone 8 1-0 No [...] (1,000 00:00: unit) 00 chewable tablet Dose 1-0 No Unknown 09-17 00:00: 00 lithium 1-0 No 1mg carbonate - 300 mg 00:00: capsule 00 ProAir HFA 2020-0 No 2mcg/ac 90 09-13 tuation mcg/actuati 00:00: on aerosol 00 inhaler lisinopril 1-0 No 1mg 20 mg 7-09 tablet 00:00: 00 aspirin 81 1-0 No [...] 00:00: capsule 00 Dose 2021-0 No Unknown - 00:00: 00 lisinopril 2021-0 No 1mg 20 mg 7- tablet 00:00: 00 atorvastati 2021-0 No 1mg n 20 mg 7- tablet 00:00: 00 divalproex 2021-0 No 1mg 500 mg - tablet,vazquez 00:00: yed release 00 ropinirole 2021-0 No 1mg 2 mg tablet 09-13 00:00: 00 propranolol 2021-0 No 1mg 10 mg 7- tablet 00:00: 00 hydroxyzine 2021-0 No 1mg HCl 50 mg 7- tablet 00:00: 00 quetiapine 2021-0 No 1mg 200 mg 7- tablet 00:00: 00 quetiapine 2021-0 No 1mg 50 mg 7- tablet 00:00: 00 Latuda 60 2021-0 No 1mg mg tablet 09-13 00:00: 00 Dose 2021-0 No Unknown - 00:00: 00 Dose 2021-0 No Unknown - 00:00: 00 Dose 2021-0 No Unknown 7- 00:00: 00 Cymbalta 60 2021-0 No 1mg mg - capsule,del 00:00: ayed 00 release lithium 2021-0 No 1mg carbonate 7- 300 mg 00:00: capsule 00 ProAir HFA 1-0 No 2mcg/ac 90 09-13 tuation mcg/actuati 00:00: on aerosol 00 inhaler lisinopril 2021-0 No 1mg 20 mg 7- tablet 00:00: 00 aspirin 81 2021-0 No 1mg mg 7- tablet,vazquez 00:00: yed release 00 atorvastati 2021-0 No 1mg n 20 mg 7- tablet 00:00: 00 folic acid 2021-0 No 1mg 1 mg tablet 09-13 00:00: 00 divalproex 2021-0 No 1mg 500 mg 7- tablet,vazquez 00:00: yed release 00 ropinirole 2021-0 No 1mg 2 mg tablet 09-13 00:00: 00 Keppra 500 2021-0 No 1mg mg tablet 09-13 00:00: 00 propranolol 2021-0 No 1mg 10 mg - tablet 00:00: 00 hydroxyzine 2021-0 No 1mg HCl 50 mg - tablet 00:00: 00 quetiapine 2021-0 No 1mg 200 mg 7- tablet 00:00: 00 quetiapine 2021-0 No 1mg [...] ropinirole 2021-0 No 1mg 2 mg tablet -19 00:00: 00 Keppra 500 2021-0 No 1mg mg tablet -19 00:00: 00 propranolol 2021-0 No 1mg 10 [...] Ambien 10 1-0 No 1mg mg tablet 06-26 00:00: 00 Dose 1-0 No Unknown 4-21 00:00: 00 Depakote 1-0 No 1mg 500 mg 4-21 tablet,vazquez 00:00: yed release 00 thiamine 2020-0 No 1mg HCl -21 (vitamin 00:00: B1) 100 mg 00 tablet ropinirole 2020-0 No 1mg 1 mg tablet 06-26 00:00: 00 alprazolam 1-0 No 1mg 2 mg tablet 06-26 00:00: 00 Flonase 2020-0 No 2mcg/ac Allergy 4 tuation Relief 50 00:00: mcg/actuati 00 on nasal spray,suspe nsion ProAir HFA 2020-0 No 2mcg/ac 90 4- tuation mcg/actuati 00:00: on aerosol 00 inhaler Advair 2020-0 No 2mcg/do Diskus 250 4-21 se mcg-50 [...] Ambien 10 1-0 No 1mg mg tablet 4-21 00:00: 00 Seroquel 2021-0 No 1mg 200 mg 4-21 tablet 00:00: 00 Depakote 1-0 No 1mg 500 mg 4-21 tablet,vazquez 00:00: yed release 00 thiamine 1-0 No 1mg HCl 4-21 (vitamin 00:00: B1) 100 mg 00 tablet ropinirole 1-0 No 1mg 1 mg tablet -21 00:00: 00 alprazolam 1-0 No 1mg 2 mg tablet 4-21 00:00: 00 Flonase 1-0 No 2mcg/ac Allergy -21 tuation Relief 50 00:00: mcg/actuati 00 on nasal spray,suspe nsion ProAir HFA 2020-0 No 2mcg/ac 90 -21 tuation mcg/actuati 00:00: on aerosol 00 inhaler Advair 2020-0 No 2mcg/do Diskus 250 4-21 se mcg-50 [...] 1 mg tablet 4-21 00:00: 00 alprazolam 1-0 No 1mg 2 mg tablet -21 00:00: 00 Dose 1-0 No Unknown 4-21 00:00: 00 Dose 2021-0 No Unknown 4-21 00:00: 00 Dose 2021-0 No Unknown 4-21 00:00: 00 Dose 1-0 No Unknown 4-21 00:00: 00 sertraline 1-0 No 1mg 100 mg 4-13 tablet 00:00: 00 loratadine- 2021-0 No 1mg pseudoephed 4-13 rine ER 10 00:00: mg-240 mg 00 tablet,exte nded [id number] sertraline 1-0 No 2mg 100 mg 4-13 [...] 10 00:00: mg-240 mg 00 tablet,exte nded [id number] sertraline 1-0 No 2mg 100 mg 4-13 [...] 100 mg 4-13 tablet 00:00: 00 loratadine- 2021-0 No 1mg pseudoephed 4-13 rine ER 10 00:00: mg-240 mg 00 tablet,exte nded [id number] sertraline 2021-0 No 2mg 100 mg 4-13 tablet 00:00: 00 sulfamethox 2021-0 No 1mg azole 800 4-13 mg-trimetho 00:00: prim 160 mg 00 tablet hydroxyzine 1-0 No 1mg HCl 50 mg 4-13 tablet 00:00: 00 Suboxone 8 2021-0 No 1mg mg-2 mg 4-13 sublingual 00:00: [...] 3-10 sublingual 00:00: film 00 Suboxone 8 2021-0 No 1mg mg-2 mg 3-10 sublingual 00:00: film 00 tizanidine 2021-0 No 1mg 4 mg 3-10 capsule 00:00: 00 tizanidine 2021-0 No 1mg 4 mg 3-10 capsule 00:00: 00 Ambien 10 2021-0 No 1mg mg tablet 3-04 00:00: 00 Ambien 10 1-0 No 1mg mg tablet 3- 00:00: 00 Ambien 10 2021-0 No 1mg mg tablet 3- 00:00: 00 Ambien 10 2021-0 No 1mg mg tablet 3- 00:00: 00 Ambien 10 2021-0 No 1mg mg tablet 3- 00:00: 00 Ambien 10 1-0 No 1mg mg tablet 3- 00:00: 00 sertraline 2021-0 No 1mg 100 mg 2-10 tablet 00:00: 00 Suboxone 8 2021-0 No 1mg mg-2 mg 2-10 sublingual 00:00: film 00 tizanidine 2021-0 No 1mg 4 mg 2-10 capsule 00:00: 00 sertraline 2021-0 No 1mg 100 mg 2-10 tablet 00:00: 00 Suboxone 8 2021-0 No 1mg mg-2 mg 2-10 sublingual 00:00: film tizanidine 2021-0 No 1mg 4 mg 2-10 capsule 00:00: 00 sertraline 2021-0 No 1mg 100 mg 2-10 tablet 00:00: 00 Suboxone 8 2021-0 No 1mg mg-2 mg 2-10 sublingual 00:00: film 00 tizanidine 2021-0 No 1mg 4 mg 2-10 capsule 00:00: 00 Suboxone 8 2021-0 No 1mg mg-2 mg 1-19 sublingual 00:00: film 00 Suboxone 8 1-0 No 1mg mg-2 mg 1-19 sublingual 00:00: film 00 Suboxone 8 2021-0 No 1mg mg-2 mg 1-19 sublingual 00:00: film 00 Suboxone 8 2020-1 No 1mg mg-2 mg 2-17 sublingual 00:00: film 00 Suboxone 8 2020-1 No 1mg mg-2 mg 2-17 sublingual 00:00: film 00 Suboxone 8 2020-1 No 1mg mg-2 mg 2-17 sublingual 00:00: film 00 NaCl 0.9% 2019-1 Yes 1000mL at 999 Univ ers (NS) IV 2-08 mL/hr, ity of infusion 04:00: Intravenou Jean Marie as 1,000 mL 00 s, Medical CONTINUOUS Branch , Starting 02/12/20 at 2200, Until Discontinu ed, Routine Suboxone 8 2020-1 No 1mg mg-2 mg [...] 1mg mg-2 mg 6-17 sublingual 00:00: film Suboxone 8 2020-0 No 1mg mg-2 mg 6-17 sublingual 00:00: film Suboxone 8 2020-0 No [...] No 1mg mg tablet 1-31 00:00: 00 atorvastati 2020-0 No 1mg n [...] mg 1-31 tablet 00:00: 00 Ambien 10 2019-0 No 1mg mg tablet 04-07 00:00: 00 alprazolam 2019-0 No 1mg 1 mg tablet 04-07 00:00: 00 tizanidine 2019-0 No 1mg 4 mg -31 capsule 00:00: 00 ropinirole 2019-0 No 1mg 2 mg tablet 04-07 00:00: 00 propranolol 2020-0 No 1mg 20 mg -31 tablet 00:00: 00 (ALPRAZOLAM 2018- Yes 1/2 tablet [facility] ) 1 MG TABS 2-10 am, 1 Communi 00:00: tablet ty noon, 1/2 Health tablet night (SERTRALINE 2018-03 Yes Deloris one By [facility] HCL) 50 MG 2-10 [facility] Communi TABS 00:00: Every Morning Health for one week then increase to two tablets daily (QUETIAPINE 2018-03 Yes one By [facility] FUMARATE) 2-10 Mouth take Comm uni 200 MG TABS 00:00: at bedtime [facility] lisinopril Yes TAKE 1 Unive rs 10 mg 3-20 TABLET ity of tablet 00:00: EVERY DAY [address] lisinopril Yes TAKE 1 Unive rs 10 mg 3-20 TABLET ity of tablet 00:00: EVERY DAY [address] lisinopril Yes TAKE 1 Unive rs 10 mg 3-20 TABLET ity of tablet 00:00: EVERY DAY [place] [facility] lisinopril Yes TAKE 1 Unive rs 10 mg 3-20 TABLET ity of tablet 00:00: EVERY DAY [address] lisinopril Yes TAKE 1 Unive rs 10 mg 3-20 TABLET ity of tablet 00:00: EVERY DAY [address] omeprazole Yes TAKE 1 Unive rs 40 mg 2-21 CAPSULE ity of capsule 00:00: EVERY DAY [address] omeprazole Yes TAKE 1 Unive rs 40 mg 2-21 CAPSULE ity of capsule 00:00: EVERY DAY [place] [facility] omeprazole 2017-0 Yes TAKE 1 Unive rs 40 mg 2-21 CAPSULE ity of capsule 00:00: EVERY DAY Medical Branch omeprazole 2017-0 Yes TAKE 1 Unive rs 40 mg 2-21 CAPSULE ity of capsule 00:00: EVERY DAY Medical Branch omeprazole 2017-0 Yes TAKE 1 Unive rs 40 mg 2-21 CAPSULE ity of capsule 00:00: EVERY DAY [place] [facility] ibuprofen 2017-0 Yes TAKE 1 Univer s 800 mg 1-25 TABLET BY ity of tablet 00:00: MOUTH TWICE A Medical DAY WITH Branch FOOD ibuprofen 2017-0 Yes TAKE 1 Univer s 800 mg 1-25 TABLET BY ity of tablet 00:00: MOUTH [place] TWICE A Medical DAY WITH Branch FOOD ibuprofen 2017-0 Yes TAKE 1 Univer s 800 mg 1-25 TABLET BY ity of tablet 00:00: MOUTH [place] TWICE A Medical DAY WITH Branch FOOD ibuprofen 2017-0 Yes TAKE 1 Univer s 800 mg 1-25 TABLET BY ity of tablet 00:00: MOUTH [place] TWICE A Medical DAY WITH Branch FOOD ibuprofen 2017-0 Yes TAKE 1 Univer s 800 mg 1-25 TABLET BY ity of tablet 00:00: MOUTH [place] TWICE A Medical DAY WITH Branch FOOD diclofenac 2014- Yes 75mg Take 1 Tab U nivers (VOLTAREN) 1-18 by mouth 2 ity of 75 mg EC 00:00: (two) [place] tablet 00 times Medical daily with Branch meals. diclofenac 2014- Yes 75mg Take 1 Tab U nivers (VOLTAREN) 1-18 by mouth 2 ity of 75 mg EC 00:00: (two) [place] tablet 00 times Medical daily with Branch meals. diclofenac 2014- Yes 75mg Take 1 Tab U nivers (VOLTAREN) 1-18 by mouth 2 ity of 75 mg EC 00:00: (two) [place] tablet 00 times Medical daily with Branch meals. diclofenac 2014- Yes 75mg Take 1 Tab U nivers (VOLTAREN) 1-18 by mouth 2 ity of 75 mg EC 00:00: (two) [place] tablet 00 times Medical daily with Branch meals. diclofenac 2014- Yes 75mg Take 1 Tab U nivers [...] 2 0-17 ity of mg tablet 00:00: [facility] zolpidem 2014-03 Yes Univers (AMBIEN) 10 0-17 ity of mg tablet 00:00: [facility] ALPRAZolam 2014-03 Yes Univers (XANAX) 2 0-17 ity of mg tablet 00:00: [facility] zolpidem 2014-03 Yes Univers (AMBIEN) 10 0-17 ity of mg tablet 00:00: [facility] ALPRAZolam 2014-03 Yes Univers (XANAX) 2 0-17 ity of mg tablet 00:00: [facility] zolpidem 2014-03 Yes Univers (AMBIEN) 10 0-17 ity of mg tablet 00:00: [facility] ALPRAZolam 2014-03 Yes Univers (XANAX) 2 0-17 ity of mg tablet 00:00: [facility] zolpidem 2014-03 Yes Univers (AMBIEN) 10 0-17 ity of mg tablet 00:00: [facility] ALPRAZolam 2014-03 Yes Univers (XANAX) 2 0-17 ity of mg tablet 00:00: [facility] zolpidem 2014-03 Yes Univers (AMBIEN) 10 0-17 ity of mg tablet 00:00: [facility] INVEGA 3 mg Yes Univer s [...] 24 hr 8-21 ity of tablet 00:00: [place] [facility] VENLAFAXINE 2007-0 Yes 1 Cap Oral Univers 150 MG ORAL 3-16 QAM WITH ity of CP24 00:00: BREAKFAST Medical Branch DIVALPROEX 2007-0 Yes 1 Tab Oral U nivers 500 MG ORAL 3-16 QAM, 2 Tab it y of TBEC 00:00: Oral QHS Medical Branch RISPERIDONE 2007-0 Yes 1 Tab Oral Univers 2 MG ORAL 3-16 BID ity of TAB 00:00: [place] [facility] QUETIAPINE 2007-0 Yes 1 Tab Oral U nivers 200 MG ORAL 3-16 QHS ity of TAB 00:00: [place] [facility] VENLAFAXINE 2007-0 Yes 1 Cap Oral Univers 150 MG ORAL 3-16 QAM WITH ity of CP24 00:00: BREAKFAST Medical Branch DIVALPROEX 2007-0 Yes 1 Tab Oral U nivers 500 MG ORAL 3-16 QAM, 2 Tab it y of TBEC 00:00: Oral QHS Medical Branch RISPERIDONE 2007-0 Yes 1 Tab Oral Univers 2 MG ORAL 3-16 BID ity of TAB 00:00: [place] [facility] QUETIAPINE 2007-0 Yes 1 Tab Oral U nivers 200 MG ORAL 3-16 QHS ity of TAB 00:00: [place] [facility] VENLAFAXINE 2007-0 Yes 1 Cap Oral Univers 150 MG ORAL 3-16 QAM WITH ity of CP24 00:00: BREAKFAST Medical Branch DIVALPROEX 2007-0 Yes 1 Tab Oral U nivers 500 MG ORAL 3-16 QAM, 2 Tab it y of TBEC 00:00: Oral QHS [place] [facility] RISPERIDONE 2007-0 Yes 1 Tab Oral Univers 2 MG ORAL 3-16 BID ity of TAB 00:00: [place] [facility] QUETIAPINE 2007-0 Yes 1 Tab Oral U nivers 200 MG ORAL 3-16 QHS ity of TAB 00:00: [place] [facility] VENLAFAXINE 2007-0 Yes 1 Cap Oral Univers 150 MG ORAL 3-16 QAM WITH ity of CP24 00:00: BREAKFAST [place] [facility] DIVALPROEX 2007-0 Yes 1 Tab Oral U nivers 500 MG ORAL 3-16 QAM, 2 Tab it y of TBEC 00:00: Oral QHS Medical Branch RISPERIDONE 2007-0 Yes 1 Tab Oral Univers 2 MG ORAL 3-16 BID ity of TAB 00:00: [place] [facility] QUETIAPINE 2007-0 Yes 1 Tab Oral U nivers 200 MG ORAL 3-16 QHS ity of TAB 00:00: [place] [facility] VENLAFAXINE 2006-0 Yes 1 Cap Oral Univers 150 MG ORAL 3-16 QAM WITH ity of CP24 00:00: BREAKFAST Medical Branch DIVALPROEX 2006-0 Yes 1 Tab Oral U nivers 500 MG ORAL 3-16 QAM, 2 Tab it y of TBEC 00:00: Oral QHS [place] [facility] RISPERIDONE 2006-0 Yes 1 Tab Oral Univers 2 MG ORAL 3-16 BID ity of TAB 00:00: [place] [facility] QUETIAPINE 2006- Yes 1 Tab Oral U nivers 200 MG ORAL 3-16 QHS ity of TAB 00:00: [place] [facility] Vital Signs Vital Name Observation Time Observation Value Comments Source Systolic blood 2020-02-13 05:00:00 145 mm[Hg] Univer sity of pressure [facility] Diastolic blood 2020-02-13 05:00:00 72 mm[Hg] Unive rsity of [facility] Heart rate 2020-02-13 05:00:00 92 /min Universi ty [facility] Oxygen saturation in 2020-02-13 05:00:00 99 /min University of Arterial blood by [facility] Pulse oximetry Branch Respiratory rate 2020-02-13 04:00:00 18 /min [facility] Body temperature 2020-02-13 01:09:00 36.67 [place] [facility] Body weight 2020-02-13 01:09:00 125.646 kg Universi ty [facility] BMI 2020-02-13 01:09:00 46.10 kg/m2 Universi ty [facility] Systolic blood 2020-02-13 05:00:00 145 mm[Hg] Univer sity of pressure [facility] Diastolic blood 2020-02-13 05:00:00 72 mm[Hg] Unive rsity of pressure [facility] Heart rate 2020-02-13 05:00:00 92 /min Universi ty [facility] Oxygen saturation in 2020-02-13 05:00:00 99 /min University of Arterial blood by [facility] Pulse oximetry Branch Respiratory rate 2020-02-13 04:00:00 18 /min [facility] Body temperature 2020-02-13 01:09:00 36.67 [place] [facility] Body weight 2020-02-13 01:09:00 125.646 kg [facility] BMI 2020-02-13 01:09:00 46.10 kg/m2 [facility] BP Systolic 2022-02-24 16:21:00 121 mm[Hg] BP [...] Date / Time Performing Clinician Source Performed ASSIGNMENT OF BENEFITS 2022-04-09 17:21:26 Doctor Unassigned, [facility] EXTERNAL PROVIDER RECORDS 2020-10-09 05:01:00 Doctor Unassigned, [facility] URINALYSIS 2020-02-13 02:27:00 Iliana Ruiz [facility] ADC / LCC - DRUG SCREEN 2020-02-13 02:27:00 Iliana Ruiz [facility] CT HEAD WO CONTRAST 2020-02-13 01:56:48 Iliana Ruiz [facility] EXTRA TUBE LT. BLUE 2020-02-13 01:37:00 Iliana Ruiz [facility] EXTRA TUBE SST 2020-02-13 01:37:00 Iliana Ruiz [facility] EXTRA TUBE LT. GREEN 2020-02-13 01:37:00 Iliana Ruiz [facility] XR CHEST 1 VW 2020-02-13 01:33:14 Iliana Ruiz [facility] TROPONIN I 2020-02-13 01:32:00 Iliana Ruiz [facility] COMP. METABOLIC PANEL 2020-02-13 01:32:00 Iliana Ruiz [facility] ([id number]) [facility] SALICYLATE 2020-02-13 01:32:00 Iliana Ruiz [facility] VALPROIC ACID, TOTAL 2020-02-13 01:32:00 Iliana Ruiz [facility] ETHANOL 2020-02-13 01:32:00 Iliana Ruiz [facility] CBC WITH DIFF 2020-02-13 01:32:00 Iliana Ruiz [facility] COVID-19 (ID NOW RAPID 2020-02-13 01:32:00 Iliana Ruiz [facility] TESTING) Medical Branch EXTERNAL PROVIDER RECORDS 2019-10-09 05:01:00 Doctor Unassigned, [facility] Diagnostic evaluation with 2019-02-14 14:55:13 Deloris Escobar [facility] [address] [facility] Operation 2003-03-08 00:00:00 [facility] Cholecystectomy 2000-03-08 00:00:00 Levar corea Plan of Care Planned Activity Planned Date Details Comments Source Goal Plan of Care Note [code = 12917-6] Goal Plan of Care Note [code = 66465-3] Goal Plan of Care Note [code = 87333-7] Goal Plan of Care Note [code = 50888-0] Goal Plan of Care Note [code = 47200-9] Goal Plan of Care Note [code = 53537-5] Goal Plan of Care Note [code = 55317-3] Goal Plan of Care Note [code = 87805-4] Goal Plan of Care Note [code = 31195-9] Goal Plan of Care Note [code = 46854-2] Goal Plan of Care Note [code = 68809-9] Goal Plan of Care Note [code = 11087-4] Goal Plan of Care Note [code = 48709-8] Goal Plan of Care Note [code = 39156-5] Goal Plan of Care Note [code = 00440-2] Goal Plan of Care Note [code = 40505-0] Goal Plan of Care Note [code = 49127-8] Goal Plan of Care Note [code = 49158-3] Goal Plan of Care Note [code = 33023-5] Goal Plan of Care Note [code = 62644-4] Goal Plan of Care Note [code = 58406-9] Goal Plan of Care Note [code = 85131-5] Goal Plan of Care Note [code = 40641-4] Goal Plan of Care Note [code = 01536-5] Goal Plan of Care Note [code = 67930-5] Goal Plan of Care Note [code = 18030-8] Goal Plan of Care Note [code = 32345-9] Goal Plan of Care Note [code = 06203-3] Goal Plan of Care Note [code = 97266-9] Goal Plan of Care Note [code = 76351-7] Goal Plan of Care Note [code = 32184-4] Goal Plan of Care Note [code = 11007-0] Goal Plan of Care Note [code = 71621-5] Goal Plan of Care Note [code = 49314-6] Goal Plan of Care Note [code = 75934-8] Goal Plan of Care Note [code = 74159-9] Goal Plan of Care Note [code = 20937-3] Goal Plan of Care Note [code = 83574-7] Goal Plan of Care Note [code = 44378-6] Goal Plan of Care Note [code = 44033-5] Goal Plan of Care Note [code = 54737-9] Goal Plan of Care Note [code = 94674-7] Goal Plan of Care Note [code = 78418-4] Goal Plan of Care Note [code = 96777-1] Goal Plan of Care Note [code = 13565-6] Goal Plan of Care Note [code = 93554-3] Goal Plan of Care Note [code = 01079-9] Goal Plan of Care Note [code = 20902-6] Goal Plan of Care Note [code = 02591-1] Goal Plan of Care Note [code = 56298-5] Goal Plan of Care Note [code = 37502-4] Goal Plan of Care Note [code = 57060-3] Goal Plan of Care Note [code = 41685-4] Goal Plan of Care Note [code = 02448-3] Goal Plan of Care Note [code = 76181-7] Goal Plan of Care Note [code = 01981-8] Goal Plan of Care Note [code = 74624-6] Goal Plan of Care Note [code = 26574-2] Goal Plan of Care Note [code = 26264-2] Goal Plan of Care Note [code = 65492-4] Goal Plan of Care Note [code = 35798-8] Goal Plan of Care Note [code = 56678-7] Goal Plan of Care Note [code = 46058-6] Goal Plan of Care Note [code = 56497-4] Goal Plan of Care Note [code = 17193-3] Goal Plan of Care Note [code = 59485-4] Goal Plan of Care Note [code = 77388-7] Goal Plan of Care Note [code = 69102-9] Goal Plan of Care Note [code = 26525-7] Goal Plan of Care Note [code = 45458-0] Goal Plan of Care Note [code = 79387-2] Goal Plan of Care Note [code = 29282-9] Goal Plan of Care Note [code = 88450-7] Encounters Start End Encounter Admission Attending Care Care Encounter Source Date/Time Date/Time Type Type Clinicians Facility Department ID 2020-12-17 Inpatient [facility] [id number] [facility] 20:30:00 96 2020-12-17 Inpatient [facility] [id number] [facility] 20:30:00 96 2022-06-24 2022-06-24 Outpatient SFA SFA [id number] 023 Fady 13:39:14 13:39:14 0419 [facility] 2022-06-10 2022-06-10 Outpatient SFA SFA [id number] 023 Fady 16:18:27 16:18:27 0405 [facility] [place] 2022-05-14 2022-05-14 Outpatient SFA SFA [id number] 023 Fady 14:54:01 14:54:01 0309 [facility] 2022-04-16 2022-04-16 Outpatient SFA SFA [id number] 023 Fady 11:14:14 11:14:14 0209 [facility] 2022-04-14 2022-04-14 Outpatient Daya SPENCE [facility] [id number] Univers 14:30:00 14:30:00 CHRIS garner [facility] 2022-04-09 2022-04-09 Outpatient Daya [facility] [id number] Univers 11:00:00 11:00:00 CHRIS garner [facility] 2022-04-09 2022-04-09 Orders Doctor BURLESON [id number] Univers 00:00:00 00:00:00 Only Unassigned, [place] 350.1.13.10 [place] [facility] 4.2.7.2.[address] [facility] [id number] [address] 2022-03-31 2022-03-31 Outpatient Dyaa SPENCE [facility] [id number] Univers 16:15:00 16:15:00 CHRISTIMBO garner [facility] 2022-03-31 2022-03-31 Outpatient SFA SFA [id number] 023 Fady 13:56:44 13:56:44 0124 F Jose E 2022-03-19 2022-03-19 Outpatient SFA SFA [id number] 023 Fady 11:09:36 11:09:36 0112 F Jose E 2022-03-06 2022-03-06 Outpatient SFA SFA [id number] 022 Fady 14:07:18 14:07:18 1230 F Jose E 2022-02-25 2022-02-25 Outpatient [id number] 00:00:00 00:00:00 Visit 4mo8-8b59 fd8-4b09-a -a8gu-3z8 [id number] [id number] 2022-02-24 2022-02-24 Outpatient SFA SFA [id number] 022 Fady 16:17:21 16:17:21 1220 F Jose E 2022-02-11 2022-02-11 Outpatient SFA SFA [id number] 022 Fady 15:21:08 15:21:08 1207 F Jose E 2022-01-13 2022-01-13 Outpatient SFA SFA [id number] 022 Fady 13:59:33 13:59:33 1108 F Jose E 2022-01-02 2022-01-02 Outpatient [id number] 00:00:00 00:00:00 Visit 88db-4be8 8db-4be8-a -n4s3-1n3 [id number] [id number] 2021-12-29 2021-12-29 Outpatient SFA SFA [id number] 022 Fady 11:22:55 11:22:55 1024 F Jose E 2021-12-17 2021-12-17 Outpatient SFA SFA [id number] 022 Fady 13:53:32 13:53:32 1012 F Jose E 2021-10-21 2021-10-21 Outpatient [id number] 00:00:00 00:00:00 Visit [id number]-7439 [id number]-6330-4 -90cf-f70 [id number] 2020-12-30 2020-12-30 Outpatient DMG DMG [id number] 021 [facility] 08:02:00 08:02:00 [facility] 2020-10-29 2020-10-29 Outpatient JARAD RINCON [facility] [id number] Univers 13:40:00 13:40:00 JARAD LÓPEZ [facility] 2020-10-28 2020-10-28 Outpatient JARAD RINCON [facility] [id number] Univers 13:40:00 13:40:00 JARAD LÓPEZ [facility] 2020-10-15 2020-10-15 Outpatient JARAD RINCON [facility] [id number] Univers 13:00:00 13:00:00 JARAD LÓPEZ [facility] 2020-10-09 2020-10-09 Orders Doctor SARAH BETH [id number] [id number] Univers 00:00:00 00:00:00 Only Unassigned, LAWRENCE 350.1.13.10 [place] [facility] 4.2.7.2.686 Jean Marie as [id number] [address] 2020-10-07 2020-10-07 Outpatient Daya UREÑA [facility] [id number] Univers 15:30:00 15:30:00 RAAD [facility] 2020-10-03 2020-10-03 [facility] [id number] Univers 00:00:00 [facility]:00[facility] 350.1.13.10 [facility] y of Surgical 4.2.7.2.686 Jean Marie as Specialti [phone] Ri dical [address] 2020-09-24 2020-09-24 Outpatient Daya SPENCE [facility] [id number] Univers 15:45:00 15:45:00 CHRIS garner [facility] 2020-02-12 2020-02-13 Emergency X [facility] ERT [id number] Univers 19:02:00 00:09:00 ILIANA ity [facility] 2020-02-12 2020-02-13 [facility] [id number] [id number] Univers 19:02:00 00:09:00 Iliana N[place]enton 350.1.13.10 ity of [place] 4.2.7.2.[address] [facility] s [place] [phone] [place] [address] [place] 2020-02-12 2020-02-13 Emergency [facility] [id number] 19:02:00 00:09:00 Iliana Nguyenton 350.1.13.10 [place] 4.2.7.2.686 [place] [id number] [facility] 2019-10-09 2019-10-09 Orders Doctor SARAH BETH 1.2.840.114 [id number] Univers 00:00:00 00:00:00 Only Unassigned, LA[place]ENCE 350.1.13.10 [place] [facility] 4.[address] [facility] [id number] [place] [address] [place] 2019-10-09 2019-10-09 Orders Doctor SARAH BETH [id number] [id number] 00:00:00 00:00:00 Only Unassigned, [place] 350.1.13.10 [place] [facility] 4.2.7.2.686 [id number] 2019-02-14 2019-02-14 Office Deloris Escobar [facility] Spence En counter/ Legacy 00:00:00 00:00:00 Visit Shelly Taveras [id number] [facility] [id number] Health Health 2018-09-23 2018-09-23 Office Antonietta Garcia [facility] Legacy En counter/ Legacy 00:00:00 00:00:00 Visit Sarika Michael [facility] [id number] [facility] [id number] Services Health [facility] 2018-09-23 2018-09-23 Office Alec [facility] Legben Encoun ter/ Legacy 00:00:00 00:00:00 [facility] [id number] [facility] [id number] Services Health Contact Center 2017-04-05 2017-04-05 Ambulatory nullFlavo [facility] 3 [id number] Memoria 17:15:00 17:15:00 Pre-Reg r Medicine 02 cate Vazquez winnie 2017-04-05 2017-04-05 Ambulatory nullFlavo [facility] 3 [id number] Memoria 17:15:00 17:15:00 Pre-Reg r Medicine 02 cate Alvarado George winnie 2017-04-05 2017-04-05 Outpatient MHIE MHIE [id number] Memoria 11:15:00 11:15:00 02 cate Mera 2017-04-05 2017-04-05 Outpatient Morse, [facility] [id number] 11:15:00 11:15:00 Gail Marrero 2017-03-26 2017-03-26 Ambulatory nullFlavo [facility] 3 [id number] Memoria 21:15:00 21:15:00 Pre-Reg r Medicine 01 cate Vazquez winnie 2017-03-26 2017-03-26 Ambulatory nullFlavo [facility] 3 [id number] Memoria 21:15:00 21:15:00 Pre-Reg r Medicine 01 cate Vazquez winnie 2017-03-26 2017-03-26 Outpatient MHIE MHIE [id number] Memoria 15:15:00 15:15:00 01 cate Mera 2017-03-26 2017-03-26 Outpatient Morse, [facility] MG [id number] 15:15:00 15:15:00 Gail Marrero 2016-12-07 2016-12-07 Outpatient MHIE MHIE [id number] Memoria 11:00:00 11:00:00 00 cate Mera 2016-12-07 2016-12-07 Outpatient MHIE MHIE [id number] Memoria 11:00:00 11:00:00 cate Mera Results Test Description Test Time Test Comments Results Result Comments Source BUPRENORPHINE AND METABOLITE 2022-04-22 08:25:44 Test Item Value Reference Range Interpretation Comme nts NORBUPRENORPHINE (test code = 19.4 ng/mL 91269) BUPRENORPHINE (test code = 86817) 13.7 ng/mL INTERPRETIVE INFORMATION: Buprenorphine a nd Metabolites, Serum or Plasma, Brian titativeMethodology: Quantitative Li quid Chromatography- Tandem Mass SpectrometryPos itive cutoff: 1 ng/mLFor medica l purposes only; not valid for foren sic use.The presence of metabolite(s ) without parent drug is common and m ay indicate use of parent drug dur ing the prior week. The absence of expected drug(s) and/or drug met abolite(s) may indicate non-co mpliance, inappropriate t iming of specimen collection rela tive to drug administration, poor drug absorption, or limitations of testing. The concentration v alue must be greater than or equal t o the cutoff to be reported as pos itive. Interpretive questions shoul d be directed to the laboratory.This test was developed and its perform ance characteristics determined by [facility]. It has not been cl eared or approved by the [place] Food and Drug Administration. This test was p erformed in a CLIA certified labor atory and is intended for clinical pu rposes. TESTING PERFORMED AT [facility] [employer], [address] [address] [place] 4 [id number] CLIA NO. [id number] [facility] has important pathology staff changes effective 05/06/2022. New pathology staff will provide un interrupted, excellent patient care an d clinical consultation. S ee URL: [email or web address]. UNLESS OTHERWIS E INDICATED, ALL TESTING PERFORM ED AT CLINICAL PATHOLOGY [email or web address] [address] [place], [place] CLIA: [id number], CAP: [id number] DRUG SCREEN, SERUM, NO [id number] 14:11:29 Test Item Value Reference Interpretation Comments Range AMPHETAMINES (test Negative code = 42593) BARBITURATES (test Negative code = 03906) BENZODIAZEPINES Negative (test code = 17868) COCAINE METABOLITE Negative (test code = 50629) METHADONE (test Negative code = 09564) OPIATES (test code Negative = 854378) PHENCYCLIDINE (test Negative code = 082997) PROPOXYPHENE (test Negative code = 445412) THC (CANNABIS) Negative (test code = 869232) ETHANOL (test code Negative Screen D ecision Limits Drug = 277744) Analyzed Screen Units - ----- ----- Amphetamine 500 ng/mL Barbiturate 150 ng/mL Benzodiazepines 100 ng/mL Cocaine 150 ng/ mL Ethanol 10 mg/dL Toxic Blo od Ethanol >300 mg/dL Meth adone 150 ng/mL Opiates 1 50 ng/mL Phencyclidine 1 2 ng/mL Propoxyphene 15 0 ng/mL THC (Cannabis) 50 ng/mL A positive immuno assay result on a serum drug screen isconsidered pr esumptive evidence for th e presence of thedrug or its metabolite. Since some immu noassay testsdetect onl y inactive metabolites and others are sensitiveto alvaro y low drug levels, positiv e results may not correlatewi th the patient's physi ological state. For conf irmation of positive immuno assay results by analternate method or for consultation, velia kirkpatrick contact thelaboratory. If applicable, any drug confir mation testing reportedhere wa s developed and the perform ance characteristics determined by [facility] aboratory. This confirmati on testing has not been cleare d or approvedby the FDA. The laboratory is r egulated under CLIA asqualifie d to perform high-complexity testing. This testis used for patient testing purpose s. It should not beregarded as investigational or for research. BUPRENORPHINE AND [id number] 21:38:29 Test Item Value Reference Interpretation Comments Range NORBUPRENORPHINE 1.4 ng/mL (test code = 45663) BUPRENORPHINE (test 5.8 ng/mL INTERPRE TIVE INFORMATION: code = 30436) Buprenorphine and Metabolites, Se rum or Plasma, QuantitativeMet hodology: Quantitative Li quid Chromatography- Tandem Mass Spectromet ryPositive cutoff: 1 ng/mL For medical purpose s only; not valid for f orensic use.The presenc e of metabolite(s) w ithout parent drug is common and may indicate us e of parent drug dur ing the prior week. The absence of expected rowan g(s) and/or drug met abolite(s) may indicate non-compliance, inappropriate t iming of specimen collec tion relative to rowan g administration, poor drug absorption, or limitations of testing. The concentrati on value must be greater than or equal to the cu toff to be reported as pos itive. Interpretive qu estions should be direc sloane to the laboratory.This test was developed and i ts performance characteristics determined by [facility]. I t has not been cleared or approved by the US Food and Drug Administration. This test was performed i n a CLIA certified labor atory and is intended for clinical purposes. TESTI NG PERFORMED AT [facility], [place] [address] [id number] 8 [place]. [id number] CLIA N O. [id number] DRUG SCREEN, SERUM, NO [id number] 12:06:32 Test Item Value Reference Interpretation Comments Range AMPHETAMINES (test Negative code = 82389) BARBITURATES (test Negative code = 38911) BENZODIAZEPINES Negative (test code = 63986) COCAINE METABOLITE Negative (test code = 42606) METHADONE (test Negative code = 56490) OPIATES (test code Negative = 809192) PHENCYCLIDINE (test Negative code = 208335) PROPOXYPHENE (test Negative code = 167539) THC (CANNABIS) Negative (test code = 662615) ETHANOL (test code Negative Screen D ecision Limits Drug = 336873) Analyzed Screen Units - ----- ----- Amphetamine 500 ng/mL Barbiturate 150 ng/mL Benzodiazepines 100 ng/mL Cocaine 150 ng/ mL Ethanol 10 mg/dL Toxic Blo od Ethanol >300 mg/dL Meth adone 150 ng/mL Opiates 1 50 ng/mL Phencyclidine 12 ng/mL Propoxyphene 15 0 ng/mL THC (Cannabis) 50 n g/mL A positive immuno assay result on a serum drug screen isconsidered pr esumptive evidence for th e presence of thedrug or its metabolite. Since some immu noassay testsdetect onl y inactive metabolites and others are sensitiveto alvaro y low drug levels, positiv e results may not correlatewi th the patient's physi ological state. For conf irmation of positive immuno assay results by analternate method or for consultation, velia kirkpatrick contact thelaboratory. If applicable, any drug confir mation testing reportedhere wa s developed and the perform ance characteristics determined by [facility]. This confirmati on testing has not been cleare d or approvedby the FDA. The laboratory is r egulated under CLIA asqualifie d to perform high-complexity testing. This testis used for patient testing purpose s. It should not beregarded as investigational or for research. UNLE SS OTHERWISE INDICATED, ALL TESTING PERFORMED [facility] [address] [place] [address] LABORATORY DIRE CTOR: MELANY ANTHONY M.D. CLIA NUMBER [id number] [facility] [place]. [id number] Complete Blood Count Auto [id number] 21:10:00 Test Item Value Reference Range Interpretation Comments White Blood Count (test code = 8.7 x10 3/uL 4.4-10.5 N WBCT) Red Blood Count (test code = 4.84 x10 6/uL 3.75-5.20 N RBC) Hemoglobin (test code = HGBT) 12.9 g/dL 12.2-14.8 N Hematocrit (test code = HCTT) 41.8 % 36.5-44.4 N Mean Corpuscular Volume (test 86.40 fL 80.00-100.00 N code = MCV) Mean Corpuscular Hemoglobin 26.7 pg 27.0-32.5 L (test code = MCH) Mean Corpuscular HGB Conc 30.90 g/dL 32.00-37.50 L (test code = MCHC) RDW Coefficient of Variation 13.9 % 11.5-14.5 N (test code = RDWCV) Platelet Count (test code = 323.0 x10 3/uL 140.0-440.0 N PLTT) Mean Platelet Volume (test 8.8 fL code = MPV) Immature Granulocytes % (Auto) 0.9 % 0.0-5.0 N (test code = IMMGRAN%) Neutrophils % (Auto) (test 61.8 % 36.0-70.0 N code = NE%) Lymphocytes % (Auto) (test 28.1 % 12.0-44.0 N code = LY%) Monocytes % (Auto) (test code 6.2 % 0.0-11.0 N = MO%) Eosinophils % (Auto) (test 2.5 % 0.0-7.0 N code = EO%) Basophils % (Auto) (test code 0.5 % 0.0-2.0 N = BA%) Immature Granulocytes # (Auto) 0.08 x10 3/uL (test code = IMMGRAN#) Neutrophils # (Auto) (test 5.4 x10 3/uL 1.6-7.4 N code = NE#) Lymphocytes # (Auto) (test 2.43 x10 3/uL 0.50-4.60 N code = LY#) Monocytes # (Auto) (test code 0.54 x10 3/uL 0.00-1.20 N = MO#) Eosinophils # (Auto) (test 0.22 x10 3/uL 0.00-0.74 N code = EO#) Basophils # (Auto) (test code 0.04 x10 3/uL 0.00-0.21 N = BA#) nRBC Abs (test code = NRBCA) 0 nRBC Pct (test code = NRBCP) 0 % Comprehensive Metabolic [id number] 21:10:00 Test Item Value Reference Range Interpretation [...] 99 U/L 46-116 N = ALP) Ethanol [id number] 21:10:00 Test Item Value Reference Range Interpretation Comments Ethanol (test code = ETOH) < 3 mg/dL Coronavirus PCR, COVID19 [id number] 21:10:00 Test Item Value Reference Range Interpretation Comments Coronavirus PCR, For use under Emergency COVID19 Rapid (test Use Authorization (EUA) code = SARSCOV2) only. Coronavirus PCR, Reference Range: COVID19 Rapid (test Negative code = PZGGGJJ83.1) SARS-CoV-2 PCR Result: Negative by PCR (test code = SARS-CoV-2 PCR Result:) COVID-19 Status: AsymptomaticCBC W/AUTO [id number] 00:00:00 Test Item Value Reference Range Interpretation [...] NUCLEATED RBCS (test code = 0.00 K/UL 37004) CBC W/AUTO [id number] 00:00:00 Test Item Value Reference Range Interpretation [...] NUCLEATED RBCS (test code = 0.00 K/UL 88909) CBC W/AUTO [id number] 00:00:00 Test Item Value Reference Range Interpretation [...] NUCLEATED RBCS (test code = 0.00 K/UL 07190) LIPID [id number] 00:00:00 Test Item Value Reference Range Interpretation Comments CHOLESTEROL (test code = 2210) 189 MG/DL TRIGLYCERIDES (test code = 2232) 135 MG/DL HDL CHOLESTEROL (test code = 2220) 64 MG/DL CALC LDL CHOL (test code = 2237) 102 MG/DL RISK RATIO LDL/HDL (test code = 1.59 RATIO 2238) LIPID [id number] 00:00:00 Test Item Value Reference Range Interpretation Comments CHOLESTEROL (test code = 2210) 189 MG/DL TRIGLYCERIDES (test code = 2232) 135 MG/DL HDL CHOLESTEROL (test code = 2220) 64 MG/DL CALC LDL CHOL (test code = 2237) 102 MG/DL RISK RATIO LDL/HDL (test code = 1.59 RATIO 2238) COMPREHENSIVE METABOLIC [id number] 00:00:00 Test Item Value Reference Range Interpretation Comments GLUCOSE (test code = 2217) 121 MG/DL BUN (test code = 2208) 22 MG/DL CREATININE (test code = 2214) 1.11 MG/DL eGFR AMER. (test code 66 ML/MIN/1.73 = 82755) eGFR NON- AMER. (test 57 ML/MIN/1.73 code = 20522) CALC BUN/CREAT (test code = 20 RATIO [...] code = 2219) 11 U/L COMPREHENSIVE METABOLIC [id number] 00:00:00 Test Item Value Reference Range Interpretation Comments GLUCOSE (test code = 2217) 121 MG/DL BUN (test code = 2208) 22 MG/DL CREATININE (test code = 2214) 1.11 MG/DL eGFR AMER. (test code 66 ML/MIN/1.73 = 73973) eGFR NON- AMER. (test 57 ML/MIN/1.73 code = 84162) CALC BUN/CREAT (test code = 20 RATIO [...] IRON BINDING CAPACITY AND IRON AND % [id number] 00:00:00 Test Item Value Reference Range Interpretation Comments IRON, SERUM (test code = 2221) 42 UG/DL UNSATURATED IBC (test code = ) 246 UG/DL CALC TOTAL IBC (test code = 2076) 288 UG/DL CALC % IRON SAT (test code = 2078) 15 % IRON BINDING CAPACITY AND IRON AND % [id number] 00:00:00 Test Item Value Reference Range Interpretation Comments IRON, SERUM (test code = 2221) 42 UG/DL UNSATURATED IBC (test code = ) 246 UG/DL CALC TOTAL IBC (test code = 2076) 288 UG/DL CALC % IRON SAT (test code = 2078) 15 % [id number] 00:00:00 Test Item Value Reference Range Interpretation Comments FERRITIN (test code = 2074) 35 NG/ML [id number] 00:00:00 Test Item Value Reference Range Interpretation Comments FERRITIN (test code = 5) 35 NG/ML [id number] 00:00:00 Test Item Value Reference Range Interpretation Comments TRANSFERRIN (test code = 4936) 232 MG/DL [id number] 00:00:00 Test Item Value Reference Range Interpretation Comments TRANSFERRIN (test code = 4936) 232 MG/DL VITAMIN D, 25 [id number] 00:00:00 Test Item Value Reference Range Interpretation Comments VITAMIN D, 25 OH (test code = 4958) 15 NG/ML VITAMIN D, 25 [id number] 00:00:00 Test Item Value Reference Range Interpretation Comments VITAMIN D, 25 OH (test code = 4958) 15 NG/ML CBC W/AUTO [id number] 00:00:00 Test Item Value Reference Range Interpretation [...] NUCLEATED RBCS (test code = 0.00 K/UL 68494) CBC W/AUTO [id number] 00:00:00 Test Item Value Reference Range Interpretation [...] NUCLEATED RBCS (test code = 0.00 K/UL 02488) CBC W/AUTO [id number] 00:00:00 Test Item Value Reference Range Interpretation [...] NUCLEATED RBCS (test code = 0.00 K/UL 64723) LIPID [id number] 00:00:00 Test Item Value Reference Range Interpretation Comments CHOLESTEROL (test code = 2210) 189 MG/DL TRIGLYCERIDES (test code = 2232) 135 MG/DL HDL CHOLESTEROL (test code = 2220) 64 MG/DL CALC LDL CHOL (test code = 2237) 102 MG/DL RISK RATIO LDL/HDL (test code = 1.59 RATIO 2238) LIPID [id number] 00:00:00 Test Item Value Reference Range Interpretation Comments CHOLESTEROL (test code = 2210) 189 MG/DL TRIGLYCERIDES (test code = 2232) 135 MG/DL HDL CHOLESTEROL (test code = 2220) 64 MG/DL CALC LDL CHOL (test code = 2237) 102 MG/DL RISK RATIO LDL/HDL (test code = 1.59 RATIO 2238) COMPREHENSIVE METABOLIC [id number] 00:00:00 Test Item Value Reference Range Interpretation Comments GLUCOSE (test code = 2217) 121 MG/DL BUN (test code = 2208) 22 MG/DL CREATININE (test code = 2214) 1.11 MG/DL eGFR AMER. (test code 66 ML/MIN/1.73 = 95569) eGFR NON- AMER. (test 57 ML/MIN/1.73 code = 70433) CALC BUN/CREAT (test code = 20 RATIO [...] code = 2219) 11 U/L COMPREHENSIVE METABOLIC [id number] 00:00:00 Test Item Value Reference Range Interpretation Comments GLUCOSE (test code = 2217) 121 MG/DL BUN (test code = 2208) 22 MG/DL CREATININE (test code = 2214) 1.11 MG/DL eGFR AMER. (test code 66 ML/MIN/1.73 = 39526) eGFR NON- AMER. (test 57 ML/MIN/1.73 code = 96034) CALC BUN/CREAT (test code = 20 RATIO 2234) SODIUM (test code = 223) 138 MEQ/L POTASSIUM (test code = 2228) 4.4 MEQ/L CHLORIDE (test code = 221) 106 MEQ/L CARBON DIOXIDE (test code = [...] IRON BINDING CAPACITY AND IRON AND % [id number] 00:00:00 Test Item Value Reference Range Interpretation Comments IRON, SERUM (test code = 2221) 42 UG/DL UNSATURATED IBC (test code = ) 246 UG/DL CALC TOTAL IBC (test code = 2076) 288 UG/DL CALC % IRON SAT (test code = 2078) 15 % IRON BINDING CAPACITY AND IRON AND % [id number] 00:00:00 Test Item Value Reference Range Interpretation Comments IRON, SERUM (test code = 2221) 42 UG/DL UNSATURATED IBC (test code = 31592) 246 UG/DL CALC TOTAL IBC (test code = 2076) 288 UG/DL CALC % IRON SAT (test code = 2078) 15 % [id number] 00:00:00 Test Item Value Reference Range Interpretation Comments FERRITIN (test code = 5) 35 NG/ML [id number] 00:00:00 Test Item Value Reference Range Interpretation Comments FERRITIN (test code = 5) 35 NG/ML [id number] 00:00:00 Test Item Value Reference Range Interpretation Comments TRANSFERRIN (test code = 4936) 232 MG/DL [id number] 00:00:00 Test Item Value Reference Range Interpretation Comments TRANSFERRIN (test code = 4936) 232 MG/DL VITAMIN D, 25 [id number] 00:00:00 Test Item Value Reference Range Interpretation Comments VITAMIN D, 25 OH (test code = 4958) 15 NG/ML VITAMIN D, 25 [id number] 00:00:00 Test Item Value Reference Range Interpretation Comments VITAMIN D, 25 OH (test code = 4958) 15 NG/ML CBC W/AUTO [id number] 00:00:00 Test Item Value Reference Range Interpretation [...] NUCLEATED RBCS (test code = 0.00 K/UL 83417) CBC W/AUTO [id number] 00:00:00 Test Item Value Reference Range Interpretation [...] NUCLEATED RBCS (test code = 0.00 K/UL 96156) CBC W/AUTO [id number] 00:00:00 Test Item Value Reference Range Interpretation [...] NUCLEATED RBCS (test code = 0.00 K/UL 38265) LIPID [id number] 00:00:00 Test Item Value Reference Range Interpretation Comments CHOLESTEROL (test code = 2210) 189 MG/DL TRIGLYCERIDES (test code = 2232) 135 MG/DL HDL CHOLESTEROL (test code = 2220) 64 MG/DL CALC LDL CHOL (test code = 2237) 102 MG/DL RISK RATIO LDL/HDL (test code = 1.59 RATIO 2238) LIPID [id number] 00:00:00 Test Item Value Reference Range Interpretation Comments CHOLESTEROL (test code = 2210) 189 MG/DL TRIGLYCERIDES (test code = 2232) 135 MG/DL HDL CHOLESTEROL (test code = 2220) 64 MG/DL CALC LDL CHOL (test code = 2237) 102 MG/DL RISK RATIO LDL/HDL (test code = 1.59 RATIO 2238) COMPREHENSIVE METABOLIC [id number] 00:00:00 Test Item Value Reference Range Interpretation Comments GLUCOSE (test code = 2217) 121 MG/DL BUN (test code = 2208) 22 MG/DL CREATININE (test code = 2214) 1.11 MG/DL eGFR AMER. (test code 66 ML/MIN/1.73 = 38184) eGFR NON- AMER. (test 57 ML/MIN/1.73 code = 21136) CALC BUN/CREAT (test code = 20 RATIO [...] code = 2219) 11 U/L COMPREHENSIVE METABOLIC [id number] 00:00:00 Test Item Value Reference Range Interpretation Comments GLUCOSE (test code = 2217) 121 MG/DL BUN (test code = 2208) 22 MG/DL CREATININE (test code = 2214) 1.11 MG/DL eGFR AMER. (test code 66 ML/MIN/1.73 = 73545) eGFR NON- AMER. (test 57 ML/MIN/1.73 code = 80188) CALC BUN/CREAT (test code = 20 RATIO [...] CALC GLOBULIN (test code = 3.1 G/DL 0) CALC A/G RATIO (test code = 1.4 RATIO 2233) BILIRUBIN, TOTAL (test code = <0.2 MG/DL 2206) ALKALINE PHOSPHATASE (test 96 U/L code = 2204) AST (test code = 2218) 11 U/L ALT (test code = 2219) 11 U/L IRON BINDING CAPACITY AND IRON AND % [id number] 00:00:00 Test Item Value Reference Range Interpretation Comments IRON, SERUM (test code = 2221) 42 UG/DL UNSATURATED IBC (test code = 75884) 246 UG/DL CALC TOTAL IBC (test code = 2076) 288 UG/DL CALC % IRON SAT (test code = 2078) 15 % IRON BINDING CAPACITY AND IRON AND % [id number] 00:00:00 Test Item Value Reference Range Interpretation Comments IRON, SERUM (test code = 2) 42 UG/DL UNSATURATED IBC (test code = 81822) 246 UG/DL CALC TOTAL IBC (test code = 2076) 288 UG/DL CALC % IRON SAT (test code = 2078) 15 % [id number] 00:00:00 Test Item Value Reference Range Interpretation Comments FERRITIN (test code = 2074) 35 NG/ML [id number] 00:00:00 Test Item Value Reference Range Interpretation Comments FERRITIN (test code = 2074) 35 NG/ML [id number] 00:00:00 Test Item Value Reference Range Interpretation Comments TRANSFERRIN (test code = 4936) 232 MG/DL [id number] 00:00:00 Test Item Value Reference Range Interpretation Comments TRANSFERRIN (test code = 4936) 232 MG/DL VITAMIN D, 25 [id number] 00:00:00 Test Item Value Reference Range Interpretation Comments VITAMIN D, 25 OH (test code = 4958) 15 NG/ML VITAMIN D, 25 [id number] 00:00:00 Test Item Value Reference Range Interpretation Comments VITAMIN D, 25 OH (test code = 4958) 15 NG/ML CT HEAD WO [id number] 04:01:33 No acute intracranial abnormality. Preliminary Report [...] have reviewed this study and agree withtheabove report.[facility]IS[facility] 03:20:00 Test Item Value Reference Range Interpretation Comments APPEARANCE (test code = Turbid Clear A 7531674889) COLOR (test code = Roxy Yellow A 9407943171) PH (test code = 4.8-8.0 0107779150) SP GRAVITY (test code = 1.003-1.030 H 3404062895) GLU U QUAL (test code = Normal Normal 3763700109) BLOOD (test code = Negative Negative 4206288383) KETONES (test code = 20 mg/dL Negative A 0510578409) PROTEIN (test code = 30 mg/dL Negative A 2887-8) UROBILIN (test code = Normal Normal 5531100242) BILIRUBIN (test code = Negative Negative 7425704696) NITRITE (test code = Negative Negative 7286251536) LEUK MARKOS (test code = Negative Negative 8215309984) RBC/HPF (test code = See_Comment [Autom ated message] 9774276516) The system Venuu generated this result transmitted ref erence range: 0 - 3 HP F. The reference range was not used to int erpret this result as normal/abnormal . WBC/HPF (test code = See_Comment [Autom ated message] 0833123108) The system Venuu generated this result transmitted ref erence range: 0 - 5 HP F. The reference range was not used to int erpret this result as normal/abnormal . BACTERIA (test code = Many Negative A 2828829634) MUCOUS (test code = Moderate Negative LPF A 4494243153) HYAL CAST (test code = See_Comment H [Aut omated message] 9519642930) The system V[employer] generated this result transmitted ref erence range: <=2 LPF. The reference range was not used to int erpret this result as normal/abnormal . ZULLY VILLALPANDO (test code = See_Comment H [Au tomated message] 1761205571) The system V[employer] generated this result transmitted ref erence range: <=1 LPF. The reference range was not used to int erpret this result as normal/abnormal . Lab Interpretation (test Abnormal code = 81300-2) [facility] / [facility] - DRUG SCREEN [id number] 03:00:00 Test Item Value Reference Range Interpretation Comments BENZO U (test code = Negative Negative 3195983347) JESSICA U (test code = Negative Negative 7205482027) AMPHET (test code = Negative Negative 9499468748) THC (test code = Negative Negative 5038296663) METHADONE (test code Negative Negative = 2152035784) Meth U (test code = Negative Negative 5513327342) OPIATES (test code = Negative Negative 2453368035) Cocaine Metabolite Negative Negative (test code = 7741774187) PROPOXY (test code = Negative Negative 9331488954) Tric U (test code = Presumptive Negative A Confirma tion of 4141923200) Positive Presumptive Positive TCA result requires physician order and this will b e sent to referen ce lab. PCP (test code = Negative Negative 7456919167) OXYCOD (test code = Negative Negative 6290735460) TULIO (test code = Urine Drug Cutoff [...] testing). Lab Interpretation Abnormal (test code = 32217-9) [facility] CenterTROPONIN [id number] 02:55:00 Test Item Value Reference Range Interpretation Comments TROPONIN I (test <0.012 See_Comment [Automated code = 8373158966) message] The system which generated this result [...] ? Lab Interpretation Normal (test code = 16460-3) [facility] CenterVALPROIC ACID, [id number] 02:50:00 Test Item Value Reference Range Interpretation Comments VALPROIC A (test code = <10 50-100 L 6203900920) TULIO (test code = TULIO) Toxic Range: ?Greater than 100 ug/mL Lab Interpretation (test Abnormal code = 49995-5) [facility] CenterSALICYLATE2020-12-08 02:45:00 Test Item Value Reference Range Interpretation Comments SALICYLATE (test code <10 mg/L = 0205117092) TULIO (test code = TULIO) Therapeutic Range: ? Analgesic and Antipyretic Use ? 20-100 mg/L ? ? Anti-Inflammatory Use ? 100-250 mg/L Toxic Range: ? Greater than 300 mg/L [facility] CenterETHANOL2020-12-08 02:45:00 Test Item Value Reference Range Interpretation Comments ALCOHOL (test code = <10 mg/dL 3062608700) TULIO (test code = TULIO) <10 [id number] Toxic>100 Depression of [employer]>400 Fatalities Reported [facility] CenterACETAMINOPHEN2020-12-08 02:44:00 Test Item Value Reference Range Interpretation Comments ACETAMINOP (test code = <10.0 10-30 L 8798492512) TULIO (test code = TULIO) Toxic: Greater than 200 ug/mL @ 4 hour post ingestion or greater than 50 ug/mL @ 12 hour post ingestion Lab Interpretation (test Abnormal code = 82818-5) [facility] CenterCOM. METABOLIC PANEL (62259)2020-02-13 02:43:00 Test Item Value Reference Range Interpretation Comments NA (test code = 138 mmol/L 135-145 7402049658) K (test code = 5.1 mmol/L 3.5-5 H 5239634520) CL (test code = 106 mmol/L 98-108 8778881624) CO2 TOTAL (test code = 19 mmol/L 23-31 L 5826492459) AGAP (test code = 2-16 0630485241) BUN (test code = 26 mg/dL 7-23 H 1464511295) GLUCOSE (test code = 113 mg/dL 70-110 H 9170892210) CREATININE (test code = 1.20 mg/dL 0.5-1.04 H 1453588528) TOTAL BILI (test code = 0.5 mg/dL 0.1-1.7 4538260777) CALCIUM (test code = 10.4 mg/dL 8.6-10.6 0635526077) T PROTEIN (test code = 8.4 g/dL 6.3-8.2 H 9125152368) ALBUMIN (test code = 4.7 g/dL 3.5-5 7611600071) ALK PHOS (test code = 115 U/L 34-122 7441578095) ALTv (test code = 14 U/L 5-35 1742-6) AST(SGOT) (test code = 20 U/L 13-40 4606430757) eGFR Calculation mL/min/1.73m2 (Non-) (test code = 0140164710) eGFR Calculation mL/min/1.73m2 () (test code = 8346551075) TULIO (test code = TULIO) Association of [...] tests). Lab Interpretation Abnormal (test code = 76214-4) [facility] CenterCOVID-19 (ID NOW RAPID TESTING)2020-02-13 02:15:00 Test Item Value Reference Range Interpretation Comments SARS-CoV-2 Rapid ID NOW Not Detected Not Detected (test code = 67920-8) TULIO (test code = TULIO) ID NOW COVID-19 Assay is an isothermal nucleic acid amplification test intended for the qualitative detection of nucleic acid from SARS-CoV-2 viral RNA in nasopharyngeal (GRADES 1 THROUGH 5 TEACHER) specimens. It is used under Emergency Use [...] indicated. Lab Interpretation Normal (test code = 41204-4) [facility] WITH [id number] 01:53:00 Test Item Value Reference Range Interpretation Comments WBC (test code = See_Comment H [Automated 1405-2) message] The sy stem which generated this result transmitted reference range : 4.30 - 11.10 10*3/?L. The reference range was not used to interpret this result as normal/abnormal . RBC (test code = See_Comment [Automated 829-8) message] The sy stem which generated this [...] RDW-SD (test code = 43.3 fL 39-49.9 60668-4) RDW-CV (test code = 14.1 % 12-15.5 788-0) PLT (test code = See_Comment H [Automated 957-3) message] The sy stem which generated this result transmitted reference range : 166 - 358 10*3/ ?L. The reference r xochitl was not used to interpret this result as normal/abnormal . MPV (test code = 9.6 fL 9.5-12.9 00043-0) NRBC/100 WBC (test See_Comment [Automat ed code = 4714622168) message] The system which generated this result transmitted reference range : 0.0 - 10.0 /100 WBCs. The refer ence range was not u sed to interpret th is result as normal/abnormal . NRBC x10^3 (test code <0.01 See_Comment [Auto mated = 0523431164) message] The s ystem which generated this result transmitted reference range : 10*3/?L. The reference range was not used to interpret this result as normal/abnormal . GRAN MAT (NEUT) % 82.3 % (test code = 770-8) IMM GRAN % (test code 0.70 % = 3065056750) LYMPH % (test code = 12.5 % 736-9) MONO % (test code = 3.9 % 5905-5) EOS % (test code = 0.2 % 713-8) BASO % (test code = 0.4 % 706-2) GRAN MAT x10^3(ANC) 9.44 10*3/uL 1.88-7.09 H (test code = 1795699331) IMM GRAN x10^3 (test 0.08 10*3/uL 0-0.06 H code = 4213737417) LYMPH x10^3 (test code 1.43 10*3/uL 1.32-3.29 = 731-0) MONO x10^3 (test code 0.45 10*3/uL 0.33-0.92 = 742-7) EOS x10^3 (test code = <0.03 0.03-0.39 L 711-2) BASO x10^3 (test code 0.05 10*3/uL 0.01-0.07 = 704-7) Lab Interpretation Abnormal (test code = 67248-4) [facility] CenterSARS-CoV-2 (COVID-19) by RT-PCR (HIGH RISK) 2019-09-22 00:00:00 Test Item Value Reference Range Interpretation Comments SARS-CoV-2 INTERPRETATION (test NEGATIVE code = 10272) SOURCE (test code = 88546) NOT SPECIFIED SARS-CoV-2 (COVID-19) by RT-PCR (HIGH RISK)2019-09-22 00:00:00 Test Item Value Reference Range Interpretation Comments SARS-CoV-2 INTERPRETATION (test NEGATIVE code = 13969) SOURCE (test code = 56460) NOT SPECIFIED SARS-CoV-2 (COVID-19) by RT-PCR (HIGH RISK)2019-09-22 00:00:00 Test Item Value Reference Range Interpretation Comments SARS-CoV-2 INTERPRETATION (test NEGATIVE code = 00120) SOURCE (test code = 50227) NOT SPECIFIED SARS-CoV-2 (COVID-19) by RT-PCR (HIGH RISK)2019-09-22 00:00:00 Test Item Value Reference Range Interpretation Comments SARS-CoV-2 INTERPRETATION (test NEGATIVE code = 70177) SOURCE (test code = 46415) NOT SPECIFIED SARS-CoV-2 (COVID-19) by RT-PCR (HIGH RISK)2019-09-22 00:00:00 Test Item Value Reference Range Interpretation Comments SARS-CoV-2 INTERPRETATION (test NEGATIVE code = 14689) SOURCE (test code = 73918) NOT SPECIFIED SARS-CoV-2 (COVID-19) by RT-PCR (HIGH RISK)2019-09-22 00:00:00 Test Item Value Reference Range Interpretation Comments SARS-CoV-2 INTERPRETATION (test NEGATIVE code = 95902) SOURCE (test code = 79112) NOT SPECIFIED DRUG SCREEN, [id number] 00:00:00 Test Item Value Reference Range Interpretation Comments AMPHETAMINES (test code = 65413) Negative BARBITURATES (test code = 62090) Negative BENZODIAZEPINES (test code = 94122) Positive COCAINE METABOLITE (test code = Negative 93589) METHADONE (test code = 53643) Negative OPIATES (test code = 031768) Negative PHENCYCLIDINE (test code = 187372) Negative PROPOXYPHENE (test code = 802285) Negative THC (CANNABIS) (test code = 360701) Negative ETHANOL (test code = 295803) Negative DRUG SCREEN, [id number] 00:00:00 Test Item Value Reference Range Interpretation Comments AMPHETAMINES (test code = 31567) Negative BARBITURATES (test code = 61906) Negative BENZODIAZEPINES (test code = 84445) Positive COCAINE METABOLITE (test code = Negative 97024) METHADONE (test code = 77225) Negative OPIATES (test code = 880423) Negative PHENCYCLIDINE (test code = 628153) Negative PROPOXYPHENE (test code = 448250) Negative THC (CANNABIS) (test code = 317701) Negative ETHANOL (test code = 165147) Negative DRUG SCREEN, [id number] 00:00:00 Test Item Value Reference Range Interpretation Comments AMPHETAMINES (test code = 20732) Negative BARBITURATES (test code = 03276) Negative BENZODIAZEPINES (test code = 61442) Positive COCAINE METABOLITE (test code = Negative 14685) METHADONE (test code = 84274) Negative OPIATES (test code = 572995) Negative PHENCYCLIDINE (test code = 025260) Negative PROPOXYPHENE (test code = 041181) Negative THC (CANNABIS) (test code = 710720) Negative ETHANOL (test code = 264186) Negative DRUG SCREEN, [id number] 00:00:00 Test Item Value Reference Range Interpretation Comments AMPHETAMINES (test code = 79365) Negative BARBITURATES (test code = 76064) Negative BENZODIAZEPINES (test code = 66050) Positive COCAINE METABOLITE (test code = Negative 47404) METHADONE (test code = 13651) Negative OPIATES (test code = 957594) Negative PHENCYCLIDINE (test code = 722827) Negative PROPOXYPHENE (test code = 814554) Negative THC (CANNABIS) (test code = 792023) Negative ETHANOL (test code = 479029) Negative DRUG SCREEN, [id number] 00:00:00 Test Item Value Reference Range Interpretation Comments AMPHETAMINES (test code = 32953) Negative BARBITURATES (test code = 23361) Negative BENZODIAZEPINES (test code = 71134) Positive COCAINE METABOLITE (test code = Negative 39730) METHADONE (test code = 48421) Negative OPIATES (test code = 310539) Negative PHENCYCLIDINE (test code = 063431) Negative PROPOXYPHENE (test code = 284835) Negative THC (CANNABIS) (test code = 531052) Negative ETHANOL (test code = 645774) Negative DRUG SCREEN, [id number] 00:00:00 Test Item Value Reference Range Interpretation Comments AMPHETAMINES (test code = 66945) Negative BARBITURATES (test code = 84306) Negative BENZODIAZEPINES (test code = 56180) Positive COCAINE METABOLITE (test code = Negative 73054) METHADONE (test code = 57416) Negative OPIATES (test code = 074927) Negative PHENCYCLIDINE (test code = 908649) Negative PROPOXYPHENE (test code = 406648) Negative THC (CANNABIS) (test code = 326510) Negative ETHANOL (test code = 196990) Negative BUPRENORPHINE AND [id number] 00:00:00 Test Item Value Reference Range Interpretation Comments NORBUPRENORPHINE (test code = <1.0 ng/mL 55996) BUPRENORPHINE (test code = 94598) <1.0 ng/mL BUPRENORPHINE AND [id number] 00:00:00 Test Item Value Reference Range Interpretation Comments NORBUPRENORPHINE (test code = <1.0 ng/mL 29693) BUPRENORPHINE (test code = 71837) <1.0 ng/mL BUPRENORPHINE AND [id number] 00:00:00 Test Item Value Reference Range Interpretation Comments NORBUPRENORPHINE (test code = <1.0 ng/mL 72702) BUPRENORPHINE (test code = 20872) <1.0 ng/mL BUPRENORPHINE AND [id number] 00:00:00 Test Item Value Reference Range Interpretation Comments NORBUPRENORPHINE (test code = <1.0 ng/mL 03456) BUPRENORPHINE (test code = 38488) <1.0 ng/mL BUPRENORPHINE AND [id number] 00:00:00 Test Item Value Reference Range Interpretation Comments NORBUPRENORPHINE (test code = <1.0 ng/mL 87738) BUPRENORPHINE (test code = 90727) <1.0 ng/mL BUPRENORPHINE AND [id number] 00:00:00 Test Item Value Reference Range Interpretation Comments NORBUPRENORPHINE (test code = <1.0 ng/mL 57017) BUPRENORPHINE (test code = 84102) <1.0 ng/mL COMPREHENSIVE METABOLIC [id number] 00:00:00 Test Item Value Reference Range Interpretation Comments GLUCOSE (test code = 2217) 105 MG/DL BUN (test code = 2208) 19 MG/DL CREATININE (test code = 2214) 0.94 MG/DL eGFR AMER. (test code 81 ML/MIN/1.73 = 30569) eGFR NON- AMER. (test 70 ML/MIN/1.73 code = 07708) CALC BUN/CREAT (test code = 20 RATIO [...] RATIO 223) BILIRUBIN, TOTAL (test code = 0.3 MG/DL 2206) ALKALINE PHOSPHATASE (test 122 U/L code = 2204) AST (test code = 2218) 19 U/L ALT (test code = 2219) 18 U/L COMPREHENSIVE METABOLIC [id number] 00:00:00 Test Item Value Reference Range Interpretation Comments GLUCOSE (test code = 2217) 105 MG/DL BUN (test code = 2208) 19 MG/DL CREATININE (test code = 2214) 0.94 MG/DL eGFR AMER. (test code 81 ML/MIN/1.73 = 35967) eGFR NON- AMER. (test 70 ML/MIN/1.73 code = 33135) CALC BUN/CREAT (test code = 20 RATIO [...] code = 2219) 18 U/L COMPREHENSIVE METABOLIC [id number] 00:00:00 Test Item Value Reference Range Interpretation Comments GLUCOSE (test code = 2217) 105 MG/DL BUN (test code = 2208) 19 MG/DL CREATININE (test code = 2214) 0.94 MG/DL eGFR AMER. (test code 81 ML/MIN/1.73 = 13563) eGFR NON- AMER. (test 70 ML/MIN/1.73 code = 88604) CALC BUN/CREAT (test code = 20 RATIO [...] RATIO 4) BILIRUBIN, TOTAL (test code = 0.3 MG/DL 2206) ALKALINE PHOSPHATASE (test 122 U/L code = 2204) AST (test code = 2218) 19 U/L ALT (test code = 2219) 18 U/L COMPREHENSIVE METABOLIC [id number] 00:00:00 Test Item Value Reference Range Interpretation Comments GLUCOSE (test code = 2217) 105 MG/DL BUN (test code = 2208) 19 MG/DL CREATININE (test code = 2214) 0.94 MG/DL eGFR AMER. (test code 81 ML/MIN/1.73 = 35016) eGFR NON- AMER. (test 70 ML/MIN/1.73 code = 30194) CALC BUN/CREAT (test code = 20 RATIO [...] code = 2219) 18 U/L COMPREHENSIVE METABOLIC [id number] 00:00:00 Test Item Value Reference Range Interpretation Comments GLUCOSE (test code = 2217) 105 MG/DL BUN (test code = 2208) 19 MG/DL CREATININE (test code = 2214) 0.94 MG/DL eGFR AMER. (test code 81 ML/MIN/1.73 = 35110) eGFR NON- AMER. (test 70 ML/MIN/1.73 code = 88617) CALC BUN/CREAT (test code = 20 RATIO [...] code = 2219) 18 U/L COMPREHENSIVE METABOLIC [id number] 00:00:00 Test Item Value Reference Range Interpretation Comments GLUCOSE (test code = 2217) 105 MG/DL BUN (test code = 2208) 19 MG/DL CREATININE (test code = 2214) 0.94 MG/DL eGFR AMER. (test code 81 ML/MIN/1.73 = 45989) eGFR NON- AMER. (test 70 ML/MIN/1.73 code = 32951) CALC BUN/CREAT (test code = 20 RATIO [...] code = 2219) 18 U/L DRUG SCREEN, [id number] 00:00:00 Test Item Value Reference Range Interpretation Comments AMPHETAMINES (test code = 89621) Negative BARBITURATES (test code = 59635) Negative BENZODIAZEPINES (test code = 67282) Negative COCAINE METABOLITE (test code = Negative 15523) METHADONE (test code = 37595) Negative OPIATES (test code = 718211) Negative PHENCYCLIDINE (test code = 827754) Negative PROPOXYPHENE (test code = 114316) Negative THC (CANNABIS) (test code = 612424) Negative ETHANOL (test code = 824067) Negative DRUG SCREEN, [id number] 00:00:00 Test Item Value Reference Range Interpretation Comments AMPHETAMINES (test code = 84420) Negative BARBITURATES (test code = 02499) Negative BENZODIAZEPINES (test code = 61101) Negative COCAINE METABOLITE (test code = Negative 07919) METHADONE (test code = 37549) Negative OPIATES (test code = 243172) Negative PHENCYCLIDINE (test code = 002162) Negative PROPOXYPHENE (test code = 614122) Negative THC (CANNABIS) (test code = 655295) Negative ETHANOL (test code = 379055) Negative DRUG SCREEN, [id number] 00:00:00 Test Item Value Reference Range Interpretation Comments AMPHETAMINES (test code = 96997) Negative BARBITURATES (test code = 66138) Negative BENZODIAZEPINES (test code = 04663) Negative COCAINE METABOLITE (test code = Negative 88485) METHADONE (test code = 32923) Negative OPIATES (test code = 588609) Negative PHENCYCLIDINE (test code = 546429) Negative PROPOXYPHENE (test code = 906286) Negative THC (CANNABIS) (test code = 324766) Negative ETHANOL (test code = 067897) Negative DRUG SCREEN, [id number] 00:00:00 Test Item Value Reference Range Interpretation Comments AMPHETAMINES (test code = 64464) Negative BARBITURATES (test code = 65523) Negative BENZODIAZEPINES (test code = 68749) Negative COCAINE METABOLITE (test code = Negative 95222) METHADONE (test code = 65956) Negative OPIATES (test code = 174922) Negative PHENCYCLIDINE (test code = 360252) Negative PROPOXYPHENE (test code = 315706) Negative THC (CANNABIS) (test code = 926335) Negative ETHANOL (test code = 967693) Negative DRUG SCREEN, [id number] 00:00:00 Test Item Value Reference Range Interpretation Comments AMPHETAMINES (test code = 16287) Negative BARBITURATES (test code = 09353) Negative BENZODIAZEPINES (test code = 93096) Negative COCAINE METABOLITE (test code = Negative 84296) METHADONE (test code = 03000) Negative OPIATES (test code = 888891) Negative PHENCYCLIDINE (test code = 480956) Negative PROPOXYPHENE (test code = 280272) Negative THC (CANNABIS) (test code = 074787) Negative ETHANOL (test code = 841429) Negative DRUG SCREEN, [id number] 00:00:00 Test Item Value Reference Range Interpretation Comments AMPHETAMINES (test code = 83754) Negative BARBITURATES (test code = 43600) Negative BENZODIAZEPINES (test code = 01967) Negative COCAINE METABOLITE (test code = Negative 01958) METHADONE (test code = 59469) Negative OPIATES (test code = 541779) Negative PHENCYCLIDINE (test code = 851778) Negative PROPOXYPHENE (test code = 511880) Negative THC (CANNABIS) (test code = 488544) Negative ETHANOL (test code = 253527) Negative CBC W/AUTO [id number] 00:00:00 Test Item Value Reference Range Interpretation [...] code = 1015) 307 K/UL CBC W/AUTO [id number] 00:00:00 Test Item Value Reference Range Interpretation [...] code = 1015) 307 K/UL CBC W/AUTO [id number] 00:00:00 Test Item Value Reference Range Interpretation [...] code = 1015) 307 K/UL CBC W/AUTO [id number] 00:00:00 Test Item Value Reference Range Interpretation [...] code = 1015) 307 K/UL CBC W/AUTO [id number] 00:00:00 Test Item Value Reference Range Interpretation [...] code = 1015) 307 K/UL CBC W/AUTO [id number] 00:00:00 Test Item Value Reference Range Interpretation [...] code = 1015) 307 K/UL CBC W/AUTO [id number] 00:00:00 Test Item Value Reference Range Interpretation [...] code = 1015) 307 K/UL CBC W/AUTO [id number] 00:00:00 Test Item Value Reference Range Interpretation [...] code = 1015) 307 K/UL CBC W/AUTO [id number] 00:00:00 Test Item Value Reference Range Interpretation [...] code = 1015) 307 K/UL DRUG SCREEN, [id number] 00:00:00 Test Item Value Reference Range Interpretation Comments AMPHETAMINES (test code = 48007) Negative BARBITURATES (test code = 49206) Negative BENZODIAZEPINES (test code = 88885) Positive COCAINE METABOLITE (test code = Negative 36422) METHADONE (test code = 03968) Negative OPIATES (test code = 980214) Negative PHENCYCLIDINE (test code = 462068) Negative PROPOXYPHENE (test code = 145675) Negative THC (CANNABIS) (test code = 918431) Negative ETHANOL (test code = 992221) Negative DRUG SCREEN, [id number] 00:00:00 Test Item Value Reference Range Interpretation Comments AMPHETAMINES (test code = 91628) Negative BARBITURATES (test code = 80980) Negative BENZODIAZEPINES (test code = 25572) Positive COCAINE METABOLITE (test code = Negative 00256) METHADONE (test code = 13688) Negative OPIATES (test code = 059332) Negative PHENCYCLIDINE (test code = 661445) Negative PROPOXYPHENE (test code = 030787) Negative THC (CANNABIS) (test code = 023209) Negative ETHANOL (test code = 381182) Negative DRUG SCREEN, [id number] 00:00:00 Test Item Value Reference Range Interpretation Comments AMPHETAMINES (test code = 82688) Negative BARBITURATES (test code = 99494) Negative BENZODIAZEPINES (test code = 73418) Positive COCAINE METABOLITE (test code = Negative 98184) METHADONE (test code = 99610) Negative OPIATES (test code = 688080) Negative PHENCYCLIDINE (test code = 917271) Negative PROPOXYPHENE (test code = 232151) Negative THC (CANNABIS) (test code = 995362) Negative ETHANOL (test code = 825674) Negative DRUG SCREEN, [id number] 00:00:00 Test Item Value Reference Range Interpretation Comments AMPHETAMINES (test code = 61932) Negative BARBITURATES (test code = 77455) Negative BENZODIAZEPINES (test code = 25632) Positive COCAINE METABOLITE (test code = Negative 50416) METHADONE (test code = 19567) Negative OPIATES (test code = 017525) Negative PHENCYCLIDINE (test code = 483188) Negative PROPOXYPHENE (test code = 623957) Negative THC (CANNABIS) (test code = 442097) Negative ETHANOL (test code = 604109) Negative DRUG SCREEN, [id number] 00:00:00 Test Item Value Reference Range Interpretation Comments AMPHETAMINES (test code = 58084) Negative BARBITURATES (test code = 00962) Negative BENZODIAZEPINES (test code = 73487) Positive COCAINE METABOLITE (test code = Negative 56381) METHADONE (test code = 60301) Negative OPIATES (test code = 263463) Negative PHENCYCLIDINE (test code = 766238) Negative PROPOXYPHENE (test code = 377239) Negative THC (CANNABIS) (test code = 893880) Negative ETHANOL (test code = 341842) Negative DRUG SCREEN, [id number] 00:00:00 Test Item Value Reference Range Interpretation Comments AMPHETAMINES (test code = 50303) Negative BARBITURATES (test code = 86942) Negative BENZODIAZEPINES (test code = 16021) Positive COCAINE METABOLITE (test code = Negative 21237) METHADONE (test code = 14851) Negative OPIATES (test code = 108327) Negative PHENCYCLIDINE (test code = 954345) Negative PROPOXYPHENE (test code = 924126) Negative THC (CANNABIS) (test code = 788022) Negative ETHANOL (test code = 530487) Negative BUPRENORPHINE AND [id number] 00:00:00 Test Item Value Reference Range Interpretation Comments NORBUPRENORPHINE (test code = 2.7 ng/mL 43921) BUPRENORPHINE (test code = 85261) 6.4 ng/mL BUPRENORPHINE AND [id number] 00:00:00 Test Item Value Reference Range Interpretation Comments NORBUPRENORPHINE (test code = 2.7 ng/mL 00105) BUPRENORPHINE (test code = 00197) 6.4 ng/mL BUPRENORPHINE AND [id number] 00:00:00 Test Item Value Reference Range Interpretation Comments NORBUPRENORPHINE (test code = 2.7 ng/mL 79507) BUPRENORPHINE (test code = 32787) 6.4 ng/mL BUPRENORPHINE AND [id number] 00:00:00 Test Item Value Reference Range Interpretation Comments NORBUPRENORPHINE (test code = 2.7 ng/mL 72899) BUPRENORPHINE (test code = 26046) 6.4 ng/mL BUPRENORPHINE AND [id number] 00:00:00 Test Item Value Reference Range Interpretation Comments NORBUPRENORPHINE (test code = 2.7 ng/mL 78346) BUPRENORPHINE (test code = 41297) 6.4 ng/mL BUPRENORPHINE AND [id number] 00:00:00 Test Item Value Reference Range Interpretation Comments NORBUPRENORPHINE (test code = 2.7 ng/mL 91909) BUPRENORPHINE (test code = 18861) 6.4 ng/mL COMPREHENSIVE METABOLIC PANEL [ADDED]2019-06-15 00:00:00 Test Item Value Reference Range Interpretation Comments GLUCOSE (test code = 2217) 112 MG/DL BUN (test code = 2208) 32 MG/DL CREATININE (test code = 2214) 1.18 MG/DL eGFR AMER. (test code 62 ML/MIN/1.73 = 28078) eGFR NON- AMER. (test 53 ML/MIN/1.73 code = 86216) CALC BUN/CREAT (test code = 27 RATIO [...] eGFR AMER. (test code 62 ML/MIN/1.73 = 30008) eGFR NON- AMER. (test 53 ML/MIN/1.73 code = 38764) CALC BUN/CREAT (test code = 27 RATIO [...] eGFR AMER. (test code 62 ML/MIN/1.73 = 12897) eGFR NON- AMER. (test 53 ML/MIN/1.73 code = 23773) CALC BUN/CREAT (test code = 27 RATIO [...] eGFR AMER. (test code 62 ML/MIN/1.73 = 09377) eGFR NON- AMER. (test 53 ML/MIN/1.73 code = 65100) CALC BUN/CREAT (test code = 27 RATIO [...] eGFR AMER. (test code 62 ML/MIN/1.73 = 22551) eGFR NON- AMER. (test 53 ML/MIN/1.73 code = 77452) CALC BUN/CREAT (test code = 27 RATIO [...] eGFR AMER. (test code 62 ML/MIN/1.73 = 68857) eGFR NON- AMER. (test 53 ML/MIN/1.73 code = 29443) CALC BUN/CREAT (test code = 27 RATIO [...] Comments HYDROXYALPRAZOLAM INTERP (test code Positive = 24267) HYDROXYALPRAZOLAM QNT (test code = 883 ng/mL 584311) LORAZEPAM INTERP (test code = Negative 82991) LORAZEPAM QNT (test code = 41677) <50 ng/mL OXAZEPAM INTERP (test code = 52213) Negative OXAZEPAM QNT (test code = 12322) <50 ng/mL TEMAZEPAM INTERP (test code = Negative 280576) TEMAZEPAM QNT (test code = 057236) <50 ng/mL NORDIAZEPAM INTERP (test code = Negative 73588) NORDIAZEPAM QNT (test code = 49452) <50 ng/mL TN-VJJRV-RTXNXSOVAG INTERP (test Negative code = 617566) EH-MZTHP-VIZOIYIWWT QNT (test code <50 ng/mL = 104980) 7-AMINOCLONAZEPAM INTERP (test code Negative = 488903) 7-AMINOCLONAZEPAM QNT (test code = <50 ng/mL 838928) 7-AMINOFLUNITRAZEPAM INTERP (test Negative code = 186170) 7-AMINOFLUNITRAZEPAM QNT (test code <50 ng/mL = 202768) HYDROXYTRIAZOLAM INTERP (test code Negative = 776230) HYDROXYTRIAZOLAM QNT (test code = <50 ng/mL 116409) BENZODIAZEPINE, QUANT, URINE [REFLEX]2019-05-26 00:00:00 Test Item Value Reference Range Interpretation Comments HYDROXYALPRAZOLAM INTERP (test code Positive = 94554) HYDROXYALPRAZOLAM QNT (test code = 883 ng/mL 690689) LORAZEPAM INTERP (test code = Negative 67801) LORAZEPAM QNT (test code = 49090) <50 ng/mL OXAZEPAM INTERP (test code = 57191) Negative OXAZEPAM QNT (test code = 63974) <50 ng/mL TEMAZEPAM INTERP (test code = Negative 579571) TEMAZEPAM QNT (test code = 077393) <50 ng/mL NORDIAZEPAM INTERP (test code = Negative 46749) NORDIAZEPAM QNT (test code = 63117) <50 ng/mL OO-FZCOL-HQTSQGAVYN INTERP (test Negative code = 268410) OK-OKITB-PKLKCXETHG QNT (test code <50 ng/mL = 671497) 7-AMINOCLONAZEPAM INTERP (test code Negative = 661091) 7-AMINOCLONAZEPAM QNT (test code = <50 ng/mL 016827) 7-AMINOFLUNITRAZEPAM INTERP (test Negative code = 485298) 7-AMINOFLUNITRAZEPAM QNT (test code <50 ng/mL = 482306) HYDROXYTRIAZOLAM INTERP (test code Negative = 796746) HYDROXYTRIAZOLAM QNT (test code = <50 ng/mL 828659) BUPRENORPHINE, QUANT, URINE [REFLEX]2019-05-26 00:00:00 Test Item Value Reference Range Interpretation Comments BUPRENORPHINE INTERP (test code = Positive 69306) BUPRENORPHINE QNT (test code = 65 ng/mL 59003) BENZODIAZEPINE, QUANT, URINE [REFLEX]2019-05-26 00:00:00 Test Item Value Reference Range Interpretation Comments HYDROXYALPRAZOLAM INTERP (test code Positive = 72941) HYDROXYALPRAZOLAM QNT (test code = 883 ng/mL 224672) LORAZEPAM INTERP (test code = Negative 82911) LORAZEPAM QNT (test code = 75044) <50 ng/mL OXAZEPAM INTERP (test code = 48899) Negative OXAZEPAM QNT (test code = 43767) <50 ng/mL TEMAZEPAM INTERP (test code = Negative 677853) TEMAZEPAM QNT (test code = 254303) <50 ng/mL NORDIAZEPAM INTERP (test code = Negative 97843) NORDIAZEPAM QNT (test code = 81368) <50 ng/mL JE-RGGBN-FEYIUOTSFS INTERP (test Negative code = 737796) WB-BDSEW-EQZGWZTEON QNT (test code <50 ng/mL = 008820) 7-AMINOCLONAZEPAM INTERP (test code Negative = 192382) 7-AMINOCLONAZEPAM QNT (test code = <50 ng/mL 588460) 7-AMINOFLUNITRAZEPAM INTERP (test Negative code = 286073) 7-AMINOFLUNITRAZEPAM QNT (test code <50 ng/mL = 042159) HYDROXYTRIAZOLAM INTERP (test code Negative = 418340) HYDROXYTRIAZOLAM QNT (test code = <50 ng/mL 237591) BENZODIAZEPINE, QUANT, URINE [REFLEX]2019-05-26 00:00:00 Test Item Value Reference Range Interpretation Comments HYDROXYALPRAZOLAM INTERP (test code Positive = 30462) HYDROXYALPRAZOLAM QNT (test code = 883 ng/mL 114856) LORAZEPAM INTERP (test code = Negative 23268) LORAZEPAM QNT (test code = 04975) <50 ng/mL OXAZEPAM INTERP (test code = 81940) Negative OXAZEPAM QNT (test code = 21744) <50 ng/mL TEMAZEPAM INTERP (test code = Negative 303025) TEMAZEPAM QNT (test code = 310706) <50 ng/mL NORDIAZEPAM INTERP (test code = Negative 64624) NORDIAZEPAM QNT (test code = 34258) <50 ng/mL CU-CDSDU-WSDATTRQZG INTERP (test Negative code = 467213) ZS-KOSGD-DMWNVEIGWU QNT (test code <50 ng/mL = 347044) 7-AMINOCLONAZEPAM INTERP (test code Negative = 270550) 7-AMINOCLONAZEPAM QNT (test code = <50 ng/mL 318804) 7-AMINOFLUNITRAZEPAM INTERP (test Negative code = 653511) 7-AMINOFLUNITRAZEPAM QNT (test code <50 ng/mL = 367330) HYDROXYTRIAZOLAM INTERP (test code Negative = 190962) HYDROXYTRIAZOLAM QNT (test code = <50 ng/mL 362091) BUPRENORPHINE, QUANT, URINE [REFLEX]2019-05-26 00:00:00 Test Item Value Reference Range Interpretation Comments BUPRENORPHINE INTERP (test code = Positive 14481) BUPRENORPHINE QNT (test code = 65 ng/mL 12026) BENZODIAZEPINE, QUANT, URINE [REFLEX]2019-05-26 00:00:00 Test Item Value Reference Range Interpretation Comments HYDROXYALPRAZOLAM INTERP (test code Positive = 05531) HYDROXYALPRAZOLAM QNT (test code = 883 ng/mL 454690) LORAZEPAM INTERP (test code = Negative 09963) LORAZEPAM QNT (test code = 36807) <50 ng/mL OXAZEPAM INTERP (test code = 08264) Negative OXAZEPAM QNT (test code = 89172) <50 ng/mL TEMAZEPAM INTERP (test code = Negative 905570) TEMAZEPAM QNT (test code = 257340) <50 ng/mL NORDIAZEPAM INTERP (test code = Negative 76486) NORDIAZEPAM QNT (test code = 57128) <50 ng/mL BN-RKHHZ-YFGUJXEMCH INTERP (test Negative code = 989296) WB-MXXWL-SBZMNSYFTO QNT (test code <50 ng/mL = 946377) 7-AMINOCLONAZEPAM INTERP (test code Negative = 572655) 7-AMINOCLONAZEPAM QNT (test code = <50 ng/mL 493784) 7-AMINOFLUNITRAZEPAM INTERP (test Negative code = 387702) 7-AMINOFLUNITRAZEPAM QNT (test code <50 ng/mL = 039729) HYDROXYTRIAZOLAM INTERP (test code Negative = 942987) HYDROXYTRIAZOLAM QNT (test code = <50 ng/mL 441732) BENZODIAZEPINE, QUANT, URINE [REFLEX]2019-05-26 00:00:00 Test Item Value Reference Range Interpretation Comments HYDROXYALPRAZOLAM INTERP (test code Positive = 89054) HYDROXYALPRAZOLAM QNT (test code = 883 ng/mL 734239) LORAZEPAM INTERP (test code = Negative 14312) LORAZEPAM QNT (test code = 45784) <50 ng/mL OXAZEPAM INTERP (test code = 75601) Negative OXAZEPAM QNT (test code = 57228) <50 ng/mL TEMAZEPAM INTERP (test code = Negative 075841) TEMAZEPAM QNT (test code = 517582) <50 ng/mL NORDIAZEPAM INTERP (test code = Negative 18434) NORDIAZEPAM QNT (test code = 90843) <50 ng/mL BY-ICWVM-DCMJRYZJFP INTERP (test Negative code = 981470) SP-WMVYR-DQAXAEDVJM QNT (test code <50 ng/mL = 447495) 7-AMINOCLONAZEPAM INTERP (test code Negative = 506001) 7-AMINOCLONAZEPAM QNT (test code = <50 ng/mL 551495) 7-AMINOFLUNITRAZEPAM INTERP (test Negative code = 456667) 7-AMINOFLUNITRAZEPAM QNT (test code <50 ng/mL = 978040) HYDROXYTRIAZOLAM INTERP (test code Negative = 130554) HYDROXYTRIAZOLAM QNT (test code = <50 ng/mL 382203) BUPRENORPHINE, QUANT, URINE [REFLEX]2019-05-26 00:00:00 Test Item Value Reference Range Interpretation Comments BUPRENORPHINE INTERP (test code = Positive 67343) BUPRENORPHINE QNT (test code = 65 ng/mL 43042) CBC W/AUTO [id number] 00:00:00 Test Item Value Reference Range Interpretation [...] code = 1015) 320 K/UL CBC W/AUTO [id number] 00:00:00 Test Item Value Reference Range Interpretation [...] code = 1015) 320 K/UL CBC W/AUTO [id number] 00:00:00 Test Item Value Reference Range Interpretation [...] code = 1015) 320 K/UL COMPREHENSIVE METABOLIC [id number] 00:00:00 Test Item Value Reference Range Interpretation Comments GLUCOSE (test code = 2217) 121 MG/DL BUN (test code = 2208) 25 MG/DL CREATININE (test code = 2214) 1.01 MG/DL eGFR AMER. (test code 75 ML/MIN/1.73 = 07407) eGFR NON- AMER. (test 64 ML/MIN/1.73 code = 79887) CALC BUN/CREAT (test code = 25 RATIO [...] code = 2219) 11 U/L COMPREHENSIVE METABOLIC [id number] 00:00:00 Test Item Value Reference Range Interpretation Comments GLUCOSE (test code = 2217) 121 MG/DL BUN (test code = 2208) 25 MG/DL CREATININE (test code = 2214) 1.01 MG/DL eGFR AMER. (test code 75 ML/MIN/1.73 = 10947) eGFR NON- AMER. (test 64 ML/MIN/1.73 code = 09681) CALC BUN/CREAT (test code = 25 RATIO [...] INTERPRETATION HEPATITIS B: (NOTE) (test code = 96134) INTERPRETATION HEPATITIS C: (NOTE) (test code = 26459) HEPATITIS PROFILE (A,B,C)2019-05-25 00:00:00 Test Item Value [...] INTERPRETATION HEPATITIS B: (NOTE) (test code = 34811) INTERPRETATION HEPATITIS C: (NOTE) (test code = 11174) HIV AB/AG COMBO RFLX [id number] 00:00:00 Test Item Value Reference Range Interpretation Comments HIV 1/2 4TH GEN, RFLX CONF (test NON-REACTIVE code = 3514) HIV AB/AG COMBO RFLX [id number] 00:00:00 Test Item Value Reference Range Interpretation Comments HIV 1/2 4TH GEN, RFLX CONF (test NON-REACTIVE code = 3514) DRUG ABUSE PANEL 10 WITH [id number] 00:00:00 Test Item Value Reference Range Interpretation Comments AMPHETAMINES (test code = NEGATIVE 3201) BARBITURATES (test code = NEGATIVE 3202) BENZODIAZEPINES (test code SEE REFLEX TESTING = 3203) CANNABINOIDS (test code = NEGATIVE 3204) COCAINE METABOLITE (test NEGATIVE code = 3205) OPIATES (test code = 3209) NEGATIVE OXYCODONE (test code = NEGATIVE 92901) PHENCYCLIDINE (test code = NEGATIVE 3210) METHADONE (test code = NEGATIVE 3207) BUPRENORPHINE (test code = SEE REFLEX TESTING 26857) DRUG ABUSE PANEL 10 WITH [id number] 00:00:00 Test Item Value Reference Range Interpretation Comments AMPHETAMINES (test code = NEGATIVE 3201) BARBITURATES (test code = NEGATIVE 3202) BENZODIAZEPINES (test code SEE REFLEX TESTING = 3203) CANNABINOIDS (test code = NEGATIVE 3204) COCAINE METABOLITE (test NEGATIVE code = 3205) OPIATES (test code = 3209) NEGATIVE OXYCODONE (test code = NEGATIVE 29985) PHENCYCLIDINE (test code = NEGATIVE 3210) METHADONE (test code = NEGATIVE 3207) BUPRENORPHINE (test code = SEE REFLEX TESTING 78532) CBC W/AUTO [id number] 00:00:00 Test Item Value Reference Range Interpretation [...] code = 1015) 320 K/UL CBC W/AUTO [id number] 00:00:00 Test Item Value Reference Range Interpretation [...] code = 1015) 320 K/UL CBC W/AUTO [id number] 00:00:00 Test Item Value Reference Range Interpretation [...] code = 1015) 320 K/UL COMPREHENSIVE METABOLIC [id number] 00:00:00 Test Item Value Reference Range Interpretation Comments GLUCOSE (test code = 2217) 121 MG/DL BUN (test code = 2208) 25 MG/DL CREATININE (test code = 2214) 1.01 MG/DL eGFR AMER. (test code 75 ML/MIN/1.73 = 22778) eGFR NON- AMER. (test 64 ML/MIN/1.73 code = 91018) CALC BUN/CREAT (test code = 25 RATIO 2235) SODIUM (test code = 2231) 137 MEQ/L POTASSIUM (test code = 2228) 6.3 MEQ/L CHLORIDE (test code = 2215) 102 MEQ/L CARBON DIOXIDE (test code = 24 MEQ/L 2206) CALCIUM (test code = 2209) 9.0 MG/DL PROTEIN, TOTAL (test code = 7.1 G/DL 2229) ALBUMIN (test code = 2201) 4.3 G/DL CALC GLOBULIN (test code = 2.8 G/DL 2240) CALC A/G RATIO (test code = 1.5 RATIO 2234) BILIRUBIN, TOTAL (test code = 0.2 MG/DL 2207) ALKALINE PHOSPHATASE (test 129 U/L code = 2204) AST (test code = 2218) 12 U/L ALT (test code = 2219) 11 U/L COMPREHENSIVE METABOLIC [id number] 00:00:00 Test Item Value Reference Range Interpretation Comments GLUCOSE (test code = 2217) 121 MG/DL BUN (test code = 2208) 25 MG/DL CREATININE (test code = 2214) 1.01 MG/DL eGFR AMER. (test code 75 ML/MIN/1.73 = 39083) eGFR NON- AMER. (test 64 ML/MIN/1.73 code = 75592) CALC BUN/CREAT (test code = 25 RATIO [...] INTERPRETATION HEPATITIS B: (NOTE) (test code = 04889) INTERPRETATION HEPATITIS C: (NOTE) (test code = 94347) HEPATITIS PROFILE (A,B,C)2019-05-25 00:00:00 Test Item Value [...] INTERPRETATION HEPATITIS B: (NOTE) (test code = 18887) INTERPRETATION HEPATITIS C: (NOTE) (test code = 78582) HIV AB/AG COMBO RFLX [id number] 00:00:00 Test Item Value Reference Range Interpretation Comments HIV 1/2 4TH GEN, RFLX CONF (test NON-REACTIVE code = 3514) HIV AB/AG COMBO RFLX [id number] 00:00:00 Test Item Value Reference Range Interpretation Comments HIV 1/2 4TH GEN, RFLX CONF (test NON-REACTIVE code = 3514) DRUG ABUSE PANEL 10 WITH [id number] 00:00:00 Test Item Value Reference Range Interpretation Comments AMPHETAMINES (test code = NEGATIVE 3201) BARBITURATES (test code = NEGATIVE 3202) BENZODIAZEPINES (test code SEE REFLEX TESTING = 3203) CANNABINOIDS (test code = NEGATIVE 3204) COCAINE METABOLITE (test NEGATIVE code = 3205) OPIATES (test code = 3209) NEGATIVE OXYCODONE (test code = NEGATIVE 22181) PHENCYCLIDINE (test code = NEGATIVE 3210) METHADONE (test code = NEGATIVE 3207) BUPRENORPHINE (test code = SEE REFLEX TESTING 24079) DRUG ABUSE PANEL 10 WITH [id number] 00:00:00 Test Item Value Reference Range Interpretation Comments AMPHETAMINES (test code = NEGATIVE 3201) BARBITURATES (test code = NEGATIVE 3202) BENZODIAZEPINES (test code SEE REFLEX TESTING = 3203) CANNABINOIDS (test code = NEGATIVE 3204) COCAINE METABOLITE (test NEGATIVE code = 3205) OPIATES (test code = 3209) NEGATIVE OXYCODONE (test code = NEGATIVE 15893) PHENCYCLIDINE (test code = NEGATIVE 3210) METHADONE (test code = NEGATIVE 3207) BUPRENORPHINE (test code = SEE REFLEX TESTING 51789) CBC W/AUTO [id number] 00:00:00 Test Item Value Reference Range Interpretation [...] code = 1015) 320 K/UL CBC W/AUTO [id number] 00:00:00 Test Item Value Reference Range Interpretation [...] code = 1015) 320 K/UL CBC W/AUTO [id number] 00:00:00 Test Item Value Reference Range Interpretation [...] code = 1015) 320 K/UL COMPREHENSIVE METABOLIC [id number] 00:00:00 Test Item Value Reference Range Interpretation Comments GLUCOSE (test code = 2217) 121 MG/DL BUN (test code = 2208) 25 MG/DL CREATININE (test code = 2214) 1.01 MG/DL eGFR AMER. (test code 75 ML/MIN/1.73 = 23209) eGFR NON- AMER. (test 64 ML/MIN/1.73 code = 96214) CALC BUN/CREAT (test code = 25 RATIO 2235) SODIUM (test code = 2231) 137 MEQ/L POTASSIUM (test code = 2228) 6.3 MEQ/L CHLORIDE (test code = 2215) 102 MEQ/L CARBON DIOXIDE (test code = 24 MEQ/L 220) CALCIUM (test code = 2209) 9.0 MG/DL PROTEIN, TOTAL (test code = 7.1 G/DL 222) ALBUMIN (test code = 2201) 4.3 G/DL CALC GLOBULIN (test code = 2.8 G/DL 2240) CALC A/G RATIO (test code = 1.5 RATIO 2234) BILIRUBIN, TOTAL (test code = 0.2 MG/DL 2206) ALKALINE PHOSPHATASE (test 129 U/L code = 2204) AST (test code = 2218) 12 U/L ALT (test code = 2219) 11 U/L COMPREHENSIVE METABOLIC [id number] 00:00:00 Test Item Value Reference Range Interpretation Comments GLUCOSE (test code = 2217) 121 MG/DL BUN (test code = 2208) 25 MG/DL CREATININE (test code = 2214) 1.01 MG/DL eGFR AMER. (test code 75 ML/MIN/1.73 = 51731) eGFR NON- AMER. (test 64 ML/MIN/1.73 code = 66674) CALC BUN/CREAT (test code = 25 RATIO [...] INTERPRETATION HEPATITIS B: (NOTE) (test code = 73460) INTERPRETATION HEPATITIS C: (NOTE) (test code = 28243) HEPATITIS PROFILE (A,B,C)2019-05-25 00:00:00 Test Item Value [...] INTERPRETATION HEPATITIS B: (NOTE) (test code = 57578) INTERPRETATION HEPATITIS C: (NOTE) (test code = 01358) HIV AB/AG COMBO RFLX [id number] 00:00:00 Test Item Value Reference Range Interpretation Comments HIV 1/2 4TH GEN, RFLX CONF (test NON-REACTIVE code = 3514) HIV AB/AG COMBO RFLX [id number] 00:00:00 Test Item Value Reference Range Interpretation Comments HIV 1/2 4TH GEN, RFLX CONF (test NON-REACTIVE code = 3514) DRUG ABUSE PANEL 10 WITH [id number] 00:00:00 Test Item Value Reference Range Interpretation Comments AMPHETAMINES (test code = NEGATIVE 3201) BARBITURATES (test code = NEGATIVE 3202) BENZODIAZEPINES (test code SEE REFLEX TESTING = 3203) CANNABINOIDS (test code = NEGATIVE 3204) COCAINE METABOLITE (test NEGATIVE code = 3205) OPIATES (test code = 3209) NEGATIVE OXYCODONE (test code = NEGATIVE 80584) PHENCYCLIDINE (test code = NEGATIVE 3210) METHADONE (test code = NEGATIVE 3207) BUPRENORPHINE (test code = SEE REFLEX TESTING 18545) DRUG ABUSE PANEL 10 WITH [id number] 00:00:00 Test Item Value Reference Range Interpretation Comments AMPHETAMINES (test code = NEGATIVE 3201) BARBITURATES (test code = NEGATIVE 3202) BENZODIAZEPINES (test code SEE REFLEX TESTING = 3203) CANNABINOIDS (test code = NEGATIVE 3204) COCAINE METABOLITE (test NEGATIVE code = 3205) OPIATES (test code = 3209) NEGATIVE OXYCODONE (test code = NEGATIVE 51963) PHENCYCLIDINE (test code = NEGATIVE 3210) METHADONE (test code = NEGATIVE 3207) BUPRENORPHINE (test code = SEE REFLEX TESTING 38858)
[2022-07-18] MEDS ORDERED: ONDANSETRON 4 MG/2 ML VIAL ONE (00:01)
[2022-07-18] MEDS ORDERED: KETOROLAC 30 MG/ML INJ ONE (00:01)
[2022-07-18] MEDS ORDERED: NA CHLORIDE 0.9% 1,000 ML ONE (00:01)
[2022-07-18 00:02] LABS: Urine Bilirubin ND (Negative); Urine Blood ND (Negative); Urine Clarity Clear (Clear); Urine Color Orange (Yellow); Urine Glucose ND (Negative); Urine Protein ND (Negative); Urine Urobilinogen ND mg/dL (0.2-1.0); Urine pH ND (5.0-7.0)
[2022-07-18 00:03] LABS: Specific Gravity ND (1.005-1.030); Urine Bacteria 20-50 /HPF (<20); Urine RBC <5 /HPF (None Seen)
[2022-07-18 00:08] LABS: Absolute Lymphocytes (CBC) 2.2 K/uL (0.7-4.9); Hematocrit 37.2 % (36.0-45.0); Lymphocytes % 31.7 % (15.3-44.8); MCV 81.9 fL (80-100); MPV 7.3 fL (7.6-11.3); RBC Red Blood Cell Count 4.54 M/uL (3.86-4.86)
[2022-07-18 00:43] LABS: Bilirubin Total 0.1 mg/dL (0.2-1.0); Potassium 4.5 mEq/L (3.5-5.1); Protein, Total 7.2 g/dL (6.4-8.2)
--- NOTE | 2022-07-18 03:00 | ER ---
Nurse's Notes [facility] Name: Tabatha Chambers Age: 56 yrs Sex: Female : 1965 Arrival Date: 07/17/2022 Time: 23:07 Bed 14 Private MD: Diagnosis: UTI/ Urinary tract infection, site not specified Presentation: 07/17 23:16 Chief complaint: Patient states: "I keep going to the bathroom but nothing really comes vc1 out. Chief complaint: EMS states: We were called for lower left quadrant abdominal pain that radiates to back. Coronavirus screen: Vaccine status: Patient reports being unvaccinated. Client denies travel out of the [place] in the last 14 days. At this time, the client does not indicate any symptoms associated with coronavirus-19. Ebola Screen: Patient negative for fever greater than or equal to 101.5 degrees Fahrenheit, and additional compatible Ebola Virus Disease symptoms Patient denies exposure to infectious person. Patient denies travel to an Ebola-affected area in the 21 days before illness onset. No symptoms or risks identified at this time. Initial Sepsis Screen: Does the patient meet any 2 criteria? No. Patient's initial sepsis screen is negative. Does the patient have a suspected source of infection? No. Patient's initial sepsis screen is negative. Risk Assessment: Do you want to hurt yourself or someone else? Patient reports no desire to harm self or others. Onset of symptoms was July 15, 2022. 23:16 Method Of Arrival: EMS: [facility] vc1 23:16 Acuity: VERO 4 vc1 23:18 Care prior to arrival: Medication(s) given: azo. vc1 Triage Assessment: 23:20 General: Appears in no apparent distress. uncomfortable, Behavior is calm, cooperative, vc1 appropriate for age. Pain: Complains of pain in left lower quadrant Pain radiates to back Pain currently is 10 out of 10 on a pain scale. EENT: No deficits noted. No signs and/or symptoms were reported regarding the EENT system. Neuro: No deficits noted. Cardiovascular: No deficits noted. Respiratory: Airway is patent Respiratory effort is even, unlabored, Respiratory pattern is regular, symmetrical. GI: No deficits noted. No signs and/or symptoms were reported involving the gastrointestinal system. : Reports urgency, urinary frequency. Derm: No deficits noted. No signs and/or symptoms reported regarding the dermatologic system. Musculoskeletal: No deficits noted. No signs and/or symptoms reported regarding the musculoskeletal system. 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 - Social history:: Smoking status: Patient denies any tobacco usage or history of. Screenin:19 [facility] ED Fall Risk Assessment (Adult) History of falling in the last 3 months, vc1 including since admission No falls in past 3 months (0 pts) Confusion or Disorientation No (0 pts) Intoxicated or Sedated No (0 pts) Impaired Gait No (0 pts) Mobility Assist Device Used No (0 pt) Altered Elimination Yes (1 pt) Score/Fall Risk Level 0 - 2 = Low Risk Oriented to surroundings, Maintained a safe environment, Educated pt \\T\\ family on fall prevention, incl call for assistance when getting out of bed. Abuse screen: Denies threats or abuse. Nutritional screening: No deficits noted. Tuberculosis screening: No symptoms or risk factors identified. Assessment: 07/18 00:28 Reassessment: No changes from previously documented assessment. Patient and/or family vc1 updated on plan of care and expected duration. Pain level reassessed. Patient is alert, oriented x 3, equal unlabored respirations, skin warm/dry/pink. 01:38 Reassessment: No changes from previously documented assessment. Patient and/or family vc1 updated on plan of care and expected duration. Pain level reassessed. Patient is alert, oriented x 3, equal unlabored respirations, skin warm/dry/pink. 02:59 Reassessment: No changes from previously documented assessment. Patient and/or family vc1 updated on plan of care and expected duration. Pain level reassessed. pt sleeping at this time. Vital Signs: 07/17 23:16 BP 138 / 72; Pulse 70; Resp 20; Temp 98.3; Pulse Ox 97% ; Weight 131.54 kg; Height 5 vc1 ft. 5 in. ; Pain 10/10; 07/18 00:28 BP 126 / 84; Pulse 65; Resp 20; Pulse Ox 97% on R/A; vc1 01:38 BP 138 / 78; Pulse 57; Resp 19; Pulse Ox 98% ; vc1 02:59 BP 149 / 85; Pulse 60; Pulse Ox 96% on R/A; vc1 07/17 23:16 Body Mass Index 48.26 (131.54 kg, 165.1 cm) vc1 07/17 23:16 Pain Scale: Adult vc1 ED Course: 07/17 23:11 Patient arrived in ED. vc1 23:13 [facility] kb 23:13 Darian Pate MD is Attending Physician. kb 23:18 Triage completed. vc1 23:19 Arm band placed on right wrist. vc1 23:21 Patient has correct armband on for positive identification. Bed in low position. Call vc1 light in reach. Side rails up X2. Pulse ox on. NIBP on. 23:22 Luz Villegas, MARION is Primary Nurse. vc1 07/18 02:15 CT Abd/Pelvis - IV Contrast Only In Process Unspecified. EDMS 03:10 No provider procedures requiring assistance completed. IV discontinued, intact, vc1 bleeding controlled, No redness/swelling at site. Pressure dressing applied. Administered Medications: 00:05 Drug: NS 0.9% IV 1000 ml Route: IV; Rate: 1 bolus; Site: left antecubital; vc1 03:00 Follow up: IV Status: Completed infusion; IV Intake: 1000ml vc1 00:05 Drug: TORadol - Ketorolac IVP 15 mg Route: IVP; Site: left antecubital; vc1 03:00 Follow up: Response: No adverse reaction vc1 00:05 Drug: Ondansetron IVP 4 mg Route: IVP; Site: left antecubital; vc1 03:00 Follow up: Response: No adverse reaction vc1 03:09 Drug: Ciprofloxacin PO 500 mg Route: PO; vc1 03:09 Follow up: Response: Medication administered at discharge. vc1 Medication: 07/17 23:22 VIS not applicable for this client. vc1 Intake: 07/18 03:00 IV: 1000ml; Total: 1000ml. vc1 Outcome: 02:59 Discharge ordered by . rn 03:10 Discharged to home ambulatory. vc1 03:10 Condition: good 03:10 Discharge instructions given to patient, Instructed on discharge instructions, follow up and referral plans. medication usage, Demonstrated understanding of instructions, follow-up care, medications, Prescriptions given X 2. 03:32 Patient left the ED. vc1 Signatures: Dispatcher [employer] EDMS Margo Wayne, LOBITO-C LOBITO-Darian Rainey MD MD rn Calcote, Vanessa, RN RN vc1
--- NOTE | 2022-07-18 03:00 | EDPHYS ---
Physician Documentation [facility] Name: Tabatha Chambers Age: 56 yrs Sex: Female : 1965 Arrival Date: 07/17/2022 Time: 23:07 Bed 14 Private MD: ED Physician Darian Pate HPI: 07/18 01:21 This 56 yrs old Female presents to ER via EMS with complaints of flank pain, kb difficulty urinating. 01:21 The patient presents with abdominal pain in the lower abdomen. Onset: The kb symptoms/episode began/occurred 3 day(s) ago. The symptoms do not radiate. Associated signs and symptoms: Pertinent positives: flank pain, small amounts, Pertinent negatives: dysuria, fever. The symptoms are described as constant. Modifying factors: The symptoms are alleviated by nothing, the symptoms are aggravated by nothing. Severity of pain: At its worst the pain was moderate in the emergency department the pain is unchanged. The patient has not experienced similar symptoms in the past. The patient has not recently seen a physician. 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 - Social history:: Smoking status: Patient denies any tobacco usage or history of. ROS: 07/18 01:21 Constitutional: Negative for fever, chills, and weight loss. kb : Positive for urinary symptoms, flank pain, urinary frequency, small amounts. All other systems are negative. Exam: 01:21 Constitutional: This is a well developed, well nourished patient who is awake, alert, kb and in no acute distress. Head/Face: Normocephalic, atraumatic. ENT: Moist Mucous membranes Cardiovascular: Regular rate and rhythm with a normal S1 and S2. No gallops, murmurs, or rubs. No pulse deficits. Respiratory: Respirations even and unlabored. No increased work of breathing. Talking in full sentences Skin: Warm, dry with normal turgor. Normal color. MS/ Extremity: Pulses equal, no cyanosis. Neurovascular intact. Full, normal range of motion. Neuro: Awake and alert, GCS 15, oriented to person, place, time, and situation. Moves all extremities. Normal gait. 01:21 Abdomen/GI: Inspection: abdomen appears normal, Bowel sounds: normal, Palpation: soft, in all quadrants, mild abdominal tenderness, in the right lower quadrant, moderate abdominal tenderness, in the left lower quadrant. 01:21 Back: CVA tenderness, that is moderate, is noted on the left. 01:22 Back: CVA tenderness, that is mild, is noted on the right. kb Vital Signs: 07/17 23:16 BP 138 / 72; Pulse 70; Resp 20; Temp 98.3; Pulse Ox 97% ; Weight 131.54 kg; Height 5 vc1 ft. 5 in. ; Pain 12/15; 07/18 00:28 BP 126 / 84; Pulse 65; Resp 20; Pulse Ox 97% on R/A; vc1 01:38 BP 138 / 78; Pulse 57; Resp 19; Pulse Ox 98% ; vc1 02:59 BP 149 / 85; Pulse 60; Pulse Ox 96% on R/A; vc1 07/17 23:16 Body Mass Index 48.26 (131.54 kg, 165.1 cm) vc1 07/17 23:16 Pain Scale: Adult vc1 MDM: 07/17 23:13 Patient medically screened. kb 07/18 01:22 Differential diagnosis: non-specific abd pain, Pyelonephritis, Ureterolithiasis, kb urinary tract infection. Data reviewed: vital signs, nurses notes. Historians other than the Patient: EMS: [facility]. 07/17 23:13 Order name: CBC with Diff; Complete Time: 00:35 kb 07/17 23:13 Order name: CMP; Complete Time: 00:44 kb 07/17 23:13 Order name: Lipase; Complete Time: 00:44 kb 07/17 23:13 Order name: Urinalysis w/ reflexes; Complete Time: 00:35 kb 07/17 23:13 Order name: CT Abd/Pelvis - IV Contrast Only kb 07/17 23:13 Order name: IV Saline Lock; Complete Time: 23:48 kb 07/17 23:13 Order name: Labs collected and sent; Complete Time: 23:48 kb Administered Medications: 00:05 Drug: NS 0.9% IV 1000 ml Route: IV; Rate: 1 bolus; Site: left antecubital; vc1 03:00 Follow up: IV Status: Completed infusion; IV Intake: 1000ml vc1 00:05 Drug: TORadol - Ketorolac IVP 15 mg Route: IVP; Site: left antecubital; vc1 03:00 Follow up: Response: No adverse reaction vc1 00:05 Drug: Ondansetron IVP 4 mg Route: IVP; Site: left antecubital; vc1 03:00 Follow up: Response: No adverse reaction vc1 03:09 Drug: Ciprofloxacin PO 500 mg Route: PO; vc1 03:09 Follow up: Response: Medication administered at discharge. vc1 Disposition: 02:59 Co-signature as Attending Physician, Darian Pate MD I agree with the assessment and rn plan of care. I reviewed the patient's care provided by Advanced Practice Provider \T\ agree w/ the diagnosis \T\ care plan. I personally saw the pt \T\ performed a substantive portion of the visit, incldng all aspects of the (History/Exam/Medical Decision Making). Disposition Summary: 07/18/22 02:59 Discharge Ordered Location: Home rn Problem: new rn Symptoms: have improved rn Condition: Stable rn Diagnosis - UTI/ Urinary tract infection, site not specified rn Followup: rn - With: Private Physician - When: As needed - Reason: Recheck today's complaints, Re-evaluation by your physician Discharge Instructions: - Discharge Summary Sheet rn - Dysuria rn - Urinary Tract Infection, Adult rn Forms: - Medication Reconciliation Form rn - Thank You Letter rn - Antibiotic internet sales associate - Prescription Opioid Use rn Prescriptions: - Pyridium 200 mg Oral Tablet - take 1 tablet by ORAL route every 8 hours for 3 days; 9 tablet; Refills: 0, rn Product Selection Permitted - Cipro 500 mg Oral Tablet - take 1 tablet by ORAL route every 12 hours for 7 days; 14 tablet; Refills: 0, rn Product Selection Permitted Signatures: Dispatcher [employer] Margo Urrutia, LOBITO-C LOBITO-Darian Rainey MD MD rn Calcote, Vanessa RN RN vc1
[2022-07-18] MEDS ORDERED: CIPROFLOXACIN HCL 500 MG TAB ONE (03:10)
[2022-07-18 03:41] VITALS: TEMP 98.3
[2022-07-18 03:55] VITALS: BP 149/85; O2SAT 96
--- NOTE | 2022-07-21 13:50 | RAD REPORT ---
EXAM DESCRIPTION: CT - Abdomen Pelvis W Contrast - 07/18/2022 5:47 am CLINICAL HISTORY: ABD PAIN COMPARISON: 06/17/2022. TECHNIQUE: CT ABDOMEN PELVIS WITH IV CONTRAST on 07/17/2022 11:13 PM CDT This exam was performed according to our departmental dose-optimization program, which includes autom ated exposure control, adjustment of the mA and/or kV according to patient size and/or use of iterati ve reconstruction technique. FINDINGS: Lower lungs are clear. Abdomen: The liver is normal in appearance. There is no biliary dilatation. Cholecystectomy was perfo rmed. The pancreas and spleen are normal in appearance. The adrenal glands and kidneys are unremarkab le. Abdominal aorta is normal in course and caliber without aneurysm. There is no free air. There is no r etroperitoneal adenopathy. Pelvis: There is no bowel obstruction. Urinary bladder is unremarkable. There is no free fluid. Uteru s is normal in size. Appendix is normal. Skeleton: There are no acute osseous findings. No suspicious bony lesions. IMPRESSION: No acute processes. Electronically signed by: Jah Mendes MD 07/18/2022 2:50 AM CDT Due to temporary technical issues with the PACS/Fluency reporting system, reports are being signed by the in house radiologist without review as a courtesy to ensure prompt reporting. The interpreting r adiologist is fully responsible for the content of the report.
== END 2022-07-18 03:32 | disposition home or self-care (01) ==
LOC: ER 23:07
DX: N39.0 Urinary tract infection, site not specified (principal); I10 Essential (primary) hypertension
CPT/HCPCS: 96361; 85025; 81001; 36415; 83690; 80053; 74177; 96375; 96374; 99284; Q9967

== ENCOUNTER 2022-10-31 10:53 | Emergency (ER) | payer OTHER ==
--- OUTSIDE RECORDS SUMMARY | 2022-10-31 11:02 | XMS REPORT | Continuity of Care Document ---
:1965 Author Organization [facility] t Address [address] [facility] [facility] [address] [place] [address] Care Team Providers Name Role Phone DEANDRE JENY Primary Care Physician Unavailable CHRIS SPENCE Attending Clinician Unavailable Doctor Unassigned, [place] Attending Clinician Unavailable JARAD LÓPEZ Attending Clinician Unavailable JARAD LÓPEZ Attending Clinician Unavailable RAAD UREÑA Attending Clinician Unavailable Raad Ureña MD Attending Clinician ILIANA RUIZ Attending Clinician Unavailable Iliana Ruiz MD Attending Clinician Deloris Escobar Attending Clinician [phone] Shelly Taveras Attending Clinician Unavailable Antonietta Garcia Attending Clinician Unavailable Sarika Michael Attending Clinician Unavailable Gail Morse Attending Clinician ILIANA RUIZ Admitting Clinician Unavailable Deloris Escobar Unavailable [phone] Payers Payer Name Policy Type Policy Number Effective Date Expiration Date S ieshawillem [facility] DUAL [id number] 2020 COMP HMO D SNP 00:00:00 [facility] [id number] 2021 (MEDICARE 00:00:00 REPLACEMENT HMO) [facility] [id number] 2016 MEDICAID 00:00:00 Problems Condition Condition Condition [...] psychotic psychotic ICD10 features features Diagnosis Term Branch Manager Utility Seen by Seen by Problem Active 2017-07-12 Il alis 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 15:36:56 l (finding) (finding) Brooke gong Active Problem 07/12/2017 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 c 15:36:56 l (disorder) dependence He nicki (disorder) Active Problem 07/12/2017 Medical Group Drug Drug Problem Active 2017-07-12 Memor ia therapy therapy 15:36:56 l finding finding Eed (finding) (finding) Active Problem 07/12/2017 Medical Group Schizophre Schizophr Problem Active 2017-07-12 Memoria theo enia 15:36:56 l (disorder) (disorder) He nicki Active Problem 07/12/2017 Medical Group Benzodiaze Benzodiaz [...] Active Univers ALLERGIE Class ity of S [facility] Social History Social Habit Start Date Stop Date Quantity Comments Source History of tobacco Smokes tobacco Un iversity of use daily [facility] Exposure to 2022-03-30 2022-04-09 Not sure [facility]-CoV-2 (event) 00:00:00 11:19:00 [facility] Alcohol intake 2021-09-16 2021-09-16 0 /d University 00:00:00 00:00:00 [facility] social history E&M 2019-02-14 2019-02-14 . [...] a divorce. Five kids Not homeless. City: [place] . lives with daughter Highest education level: none-8th grade. unemployed dropped out in 7th grade got ged in 1988Sex at : Female. Sexual orientation: Heterosexual. Gender identity: Female. drug use, illicit 2019-02-14 2019-02-14 Previously [facility] 13:01:12 13:01:12 Health alcohol use 2019-02-14 2019-02-14 [facility] 13:01:12 13:01:12 Health sexual orientation 2019-02-14 2019-02-14 Heterosexual [facility] 13:01:12 13:01:12 Health sex at 2019-02-14 [...] kids social history 2019-02-14 2019-02-14 [facility] E&M 13:01:12 13:01:12 Health Social History 2016-12-07 2016-12-07 [facility] brian 16:49:19 16:49:19 Sex Ass[birth year] At [birth year] Universit y of 00:00:00 00:00:00 [facility] Smoking Status Start Date Stop Date Source Ex-smoker (finding) 2019-02-14 13:01:12 2019-02-14 13:01:12 [facility] Sm[facility] daily 2016-06-09 00:00:00 [facility] Medications Ordered Filled Start Stop Current [...] 10 00:00: mg-240 mg 00 tablet,exte nded [id number] sertraline 1-0 No 2mg 100 mg 4-13 [...] 10 00:00: mg-240 mg 00 tablet,exte nded [id number] sertraline 1-0 No 2mg 100 mg 4-13 [...] 10 00:00: mg-240 mg 00 tablet,exte nded [id number] sertraline 2021-0 No 2mg 100 mg 4-13 [...] uni 200 MG TABS 00:00: at bedtime [facility] lisinopril Yes TAKE 1 Unive rs 10 mg 3-20 TABLET ity of tablet 00:00: EVERY DAY [address] lisinopril Yes TAKE 1 Unive rs 10 mg 3-20 TABLET ity of tablet 00:00: EVERY DAY [address] lisinopril Yes TAKE 1 Unive rs 10 mg 3-20 TABLET ity of tablet 00:00: EVERY DAY [place] [facility] lisinopril Yes TAKE 1 Unive rs 10 mg 3-20 TABLET ity of tablet 00:00: EVERY DAY [address] lisinopril Yes TAKE 1 Unive rs 10 mg 3-20 TABLET ity of tablet 00:00: EVERY DAY [address] omeprazole Yes TAKE 1 Unive rs 40 mg 2-21 CAPSULE ity of capsule 00:00: EVERY DAY [address] omeprazole Yes TAKE 1 Unive rs [...] CAPSULE ity of capsule 00:00: EVERY DAY [facility] ibuprofen 2017-0 Yes TAKE 1 Univer s 800 mg 1-25 TABLET BY ity of tablet 00:00: MOUTH TWICE A Medical DAY WITH Branch FOOD ibuprofen 2017-0 Yes TAKE 1 Univer s 800 mg 1-25 TABLET BY ity of tablet 00:00: MOUTH [place] TWICE A Medical DAY WITH Branch FOOD ibuprofen 2017-0 Yes TAKE 1 Univer s 800 mg 1-25 TABLET BY ity of tablet 00:00: MOUTH [place] TWICE A Medical DAY WITH Branch FOOD ibuprofen 2017-0 Yes TAKE 1 Univer s 800 mg 1-25 TABLET BY ity of tablet 00:00: MOUTH [place] TWICE A Medical DAY WITH Branch FOOD ibuprofen 2017-0 Yes TAKE 1 Univer s 800 mg 1-25 TABLET BY ity of tablet 00:00: MOUTH [place] TWICE A Medical DAY WITH Branch FOOD [...] 2 0-17 ity of mg tablet 00:00: [facility] zolpidem 2014-03 Yes Univers (AMBIEN) 10 0-17 ity of mg tablet 00:00: [facility] ALPRAZolam 2014-03 Yes Univers (XANAX) 2 0-17 ity of mg tablet 00:00: [facility] zolpidem 2014-03 Yes Univers (AMBIEN) 10 0-17 ity of mg tablet 00:00: [facility] ALPRAZolam 2014-03 Yes Univers (XANAX) 2 0-17 ity of mg tablet 00:00: [facility] zolpidem 2014-03 Yes Univers (AMBIEN) 10 0-17 ity of mg tablet 00:00: [facility] ALPRAZolam 2014-03 Yes Univers (XANAX) 2 0-17 ity of mg tablet 00:00: [facility] zolpidem 2014-03 Yes Univers (AMBIEN) 10 0-17 ity of mg tablet 00:00: [facility] ALPRAZolam 2014-03 Yes Univers (XANAX) 2 0-17 ity of mg tablet 00:00: [facility] zolpidem 2014-03 Yes Univers (AMBIEN) 10 0-17 ity of mg tablet 00:00: [facility] INVEGA 3 mg Yes Univer [...] 24 hr 8-21 ity of tablet 00:00: [place] [facility] VENLAFAXINE 2007-0 Yes 1 Cap Oral Univers 150 MG ORAL 3-16 QAM WITH ity of CP24 00:00: BREAKFAST Medical Branch DIVALPROEX 2007-0 Yes 1 Tab Oral U nivers 500 MG ORAL 3-16 QAM, 2 Tab it y of TBEC 00:00: Oral QHS Medical Branch RISPERIDONE 2007-0 Yes 1 Tab Oral Univers 2 MG ORAL 3-16 BID ity of TAB 00:00: [place] [facility] QUETIAPINE 2007-0 Yes 1 Tab Oral U nivers 200 MG ORAL 3-16 QHS ity of TAB 00:00: [facility] VENLAFAXINE 2007-0 Yes 1 Cap Oral Univers 150 MG ORAL 3-16 QAM WITH ity of CP24 00:00: BREAKFAST Medical Branch DIVALPROEX 2007-0 Yes 1 Tab Oral U nivers 500 MG ORAL 3-16 QAM, 2 Tab it y of TBEC 00:00: Oral QHS Medical Branch RISPERIDONE 2007-0 Yes 1 Tab Oral Univers 2 MG ORAL 3-16 BID ity of TAB 00:00: [place] [facility] QUETIAPINE 2007-0 Yes 1 Tab Oral U nivers 200 MG ORAL 3-16 QHS ity of TAB 00:00: [facility] VENLAFAXINE 2007-0 Yes 1 Cap Oral Univers 150 MG ORAL 3-16 QAM WITH ity of CP24 00:00: BREAKFAST Medical Branch DIVALPROEX 2007-0 Yes 1 Tab Oral U nivers 500 MG ORAL 3-16 QAM, 2 Tab it y of TBEC 00:00: Oral QHS [place] [facility] RISPERIDONE 2007-0 Yes 1 Tab Oral Univers 2 MG ORAL 3-16 BID ity of TAB 00:00: [facility] QUETIAPINE 2007-0 Yes 1 Tab Oral U nivers 200 MG ORAL 3-16 QHS ity of TAB 00:00: [facility] VENLAFAXINE 2007-0 Yes 1 Cap Oral Univers 150 MG ORAL 3-16 QAM WITH ity of CP24 00:00: BREAKFAST [place] [facility] DIVALPROEX 2007-0 Yes 1 Tab Oral U nivers 500 MG ORAL 3-16 QAM, 2 Tab it y of TBEC 00:00: Oral QHS Medical Branch RISPERIDONE 2007-0 Yes 1 Tab Oral Univers 2 MG ORAL 3-16 BID ity of TAB 00:00: [facility] QUETIAPINE 2007-0 Yes 1 Tab Oral U nivers 200 MG ORAL 3-16 QHS ity of TAB 00:00: [place] [facility] VENLAFAXINE 2006-0 Yes 1 Cap Oral Univers 150 MG ORAL 3-16 QAM WITH ity of CP24 00:00: BREAKFAST Medical Branch DIVALPROEX 2006-0 Yes 1 Tab Oral U nivers 500 MG ORAL 3-16 QAM, 2 Tab it y of TBEC 00:00: Oral QHS [facility] RISPERIDONE 2006-0 Yes 1 Tab Oral Univers 2 MG ORAL 3-16 BID ity of TAB 00:00: [place] [facility] QUETIAPINE 2006- Yes 1 Tab Oral U nivers 200 MG ORAL 3-16 QHS ity of TAB 00:00: [place] [facility] Vital Signs Vital Name Observation Time Observation Value Comments Source Systolic blood 2020-02-13 05:00:00 145 mm[Hg] Univer sity of pressure [facility] Diastolic blood 2020-02-13 05:00:00 72 mm[Hg] Unive rsity of [facility] Heart rate 2020-02-13 05:00:00 92 /min [facility] Oxygen saturation in 2020-02-13 05:00:00 99 /min University of Arterial blood by [facility] Pulse oximetry Branch Respiratory rate 2020-02-13 04:00:00 18 /min [facility] Body temperature 2020-02-13 01:09:00 36.67 [place] [facility] Body weight 2020-02-13 01:09:00 125.646 kg [facility] BMI 2020-02-13 01:09:00 46.10 kg/m2 [facility] Systolic blood 2020-02-13 05:00:00 145 mm[Hg] Univer sity of pressure [facility] Diastolic blood 2020-02-13 05:00:00 72 mm[Hg] Unive rsity of pressure [facility] Heart rate 2020-02-13 05:00:00 92 /min [facility] Oxygen saturation in 2020-02-13 05:00:00 99 /min University of Arterial blood by [facility] Pulse oximetry Branch Respiratory rate 2020-02-13 04:00:00 18 /min [facility] Body temperature 2020-02-13 01:09:00 36.67 Harmony [facility] Body weight 2020-02-13 01:09:[address] [facility] BMI 2020-02-13 01:09:00 46.10 kg/m2 [facility] BP Systolic 2022-02-24 16:21:00 121 mm[Hg] [...] ASSIGNMENT OF BENEFITS 2022-04-09 17:21:26 Doctor Unassigned, [facility] EXTERNAL PROVIDER RECORDS 2020-10-09 05:01:00 Doctor Unassigned, [facility] URINALYSIS 2020-02-13 02:27:00 Iliana Ruiz [facility] ADC / LCC - DRUG SCREEN 2020-02-13 02:27:00 Iliana Ruiz [facility] CT HEAD WO CONTRAST 2020-02-13 01:56:48 Iliana Ruiz [facility] EXTRA TUBE LT. BLUE 2020-02-13 01:37:00 Iliana Ruiz [facility] EXTRA TUBE SST 2020-02-13 01:37:00 Iliana Ruiz [facility] EXTRA TUBE LT. GREEN 2020-02-13 01:37:00 Iliana Ruiz [facility] XR CHEST 1 VW 2020-02-13 01:33:14 Iliana Ruiz [facility] TROPONIN I 2020-02-13 01:32:00 Iliana Ruiz [facility] COMP. METABOLIC PANEL 2020-02-13 01:32:00 Iliana Ruiz [facility] ([id number]) [facility] SALICYLATE 2020-02-13 01:32:00 Iliana Ruiz [facility] VALPROIC ACID, TOTAL 2020-02-13 01:32:00 Iliana Ruiz [facility] ETHANOL 2020-02-13 01:32:00 Iliana Ruiz [facility] CBC WITH DIFF 2020-02-13 01:32:00 Iliana Ruiz [facility] COVID-19 (ID NOW RAPID 2020-02-13 01:32:00 Iliana Ruiz [facility] TESTING) Medical Branch EXTERNAL PROVIDER RECORDS 2019-10-09 05:01:00 Doctor Unassigned, [facility] [place] [facility] Diagnostic evaluation with 2019-02-14 14:55:13 Deloris Escobar [facility] [address] [facility] Operation 2003-03-08 00:00:00 [facility] Cholecystectomy 2000-03-08 00:00:00 Levar corea Plan of Care Planned Activity Planned Date Details Comments Source Goal Plan of Care Note [code = 26437-2] Goal Plan of Care Note [code = 39709-8] Goal Plan of Care Note [code = 74935-7] Goal Plan of Care Note [code = 20006-6] Goal Plan of Care Note [code = 80835-5] Goal Plan of Care Note [code = 27511-6] Goal Plan of Care Note [code = 39237-9] Goal Plan of Care Note [code = 87330-7] Goal Plan of Care Note [code = 56185-5] Goal Plan of Care Note [code = 43533-6] Goal Plan of Care Note [code = 23171-8] Goal Plan of Care Note [code = 84664-1] Goal Plan of Care Note [code = 97210-5] Goal Plan of Care Note [code = 67339-0] Goal Plan of Care Note [code = 86429-5] Goal Plan of Care Note [code = 45546-0] Goal Plan of Care Note [code = 58918-8] Goal Plan of Care Note [code = 95084-0] Goal Plan of Care Note [code = 29291-3] Goal Plan of Care Note [code = 86166-9] Goal Plan of Care Note [code = 23858-6] Goal Plan of Care Note [code = 92347-0] Goal Plan of Care Note [code = 90377-1] Goal Plan of Care Note [code = 16400-9] Goal Plan of Care Note [code = 04476-9] Goal Plan of Care Note [code = 55453-2] Goal Plan of Care Note [code = 44061-8] Goal Plan of Care Note [code = 00295-1] Goal Plan of Care Note [code = 33007-2] Goal Plan of Care Note [code = 41774-8] Goal Plan of Care Note [code = 26052-8] Goal Plan of Care Note [code = 88321-6] Goal Plan of Care Note [code = 61488-0] Goal Plan of Care Note [code = 20986-0] Goal Plan of Care Note [code = 59236-8] Goal Plan of Care Note [code = 84966-6] Goal Plan of Care Note [code = 45588-3] Goal Plan of Care Note [code = 77052-1] Goal Plan of Care Note [code = 67876-5] Goal Plan of Care Note [code = 15315-9] Goal Plan of Care Note [code = 93550-7] Goal Plan of Care Note [code = 71766-8] Goal Plan of Care Note [code = 87858-5] Goal Plan of Care Note [code = 97144-7] Goal Plan of Care Note [code = 86251-7] Goal Plan of Care Note [code = 69489-6] Goal Plan of Care Note [code = 43605-4] Goal Plan of Care Note [code = 18444-0] Goal Plan of Care Note [code = 13813-6] Goal Plan of Care Note [code = 40976-7] Goal Plan of Care Note [code = 98006-3] Goal Plan of Care Note [code = 19564-9] Goal Plan of Care Note [code = 10109-2] Goal Plan of Care Note [code = 42672-5] Goal Plan of Care Note [code = 90229-5] Goal Plan of Care Note [code = 32486-0] Goal Plan of Care Note [code = 69606-4] Goal Plan of Care Note [code = 46678-7] Goal Plan of Care Note [code = 53441-4] Goal Plan of Care Note [code = 24076-8] Goal Plan of Care Note [code = 62319-4] Goal Plan of Care Note [code = 78342-3] Goal Plan of Care Note [code = 46853-1] Goal Plan of Care Note [code = 93320-2] Goal Plan of Care Note [code = 91563-3] Goal Plan of Care Note [code = 43311-8] Goal Plan of Care Note [code = 44832-8] Goal Plan of Care Note [code = 60314-2] Goal Plan of Care Note [code = 88217-0] Goal Plan of Care Note [code = 11726-8] Goal Plan of Care Note [code = 79612-4] Goal Plan of Care Note [code = 42778-7] Goal Plan of Care Note [code = 39656-6] Encounters Start End Encounter Admission Attending Care Care Encounter Source Date/Time Date/Time Type Type Clinicians Facility Department ID 2020-12-17 Inpatient [facility] [id number] [facility] 20:30:00 96 2020-12-17 Inpatient [facility] [id number] [facility] 20:30:00 96 2022-09-05 2022-09-05 Outpatient SFA SFA [id number] Fady 12:12:08 12:12:08 0701 [facility] 2022-07-29 2022-07-29 Outpatient SFA SFA [id number] Fady 13:31:41 13:31:41 0524 [facility] 2022-06-24 2022-06-24 Outpatient SFA SFA [id number] Fady 13:39:14 13:39:14 0419 [facility] 2022-06-10 2022-06-10 Outpatient SFA SFA [id number] Fady 16:18:27 16:18:27 0405 [facility] 2022-05-14 2022-05-14 Outpatient SFA SFA [id number] Fady 14:54:01 14:54:01 0309 [facility] 2022-04-16 2022-04-16 Outpatient SFA SFA [id number] Fady 11:14:14 11:14:14 0209 [facility] 2022-04-14 2022-04-14 Outpatient Daya SPENCE [facility] [id number] Univers 14:30:00 14:30:00 [facility] 2022-04-09 2022-04-09 Outpatient Daya SPENCE [facility] [id number] Univers 11:00:00 11:00:00 [facility] 2022-04-09 2022-04-09 Orders Doctor SARAH BETH [id number] Univers 00:00:00 00:00:00 Only Unassigned, LAWRENCE [id number] ity of [place] [facility] 4.2.7.2.686 Jean Marie as [id number] [address] 2022-03-31 2022-03-31 Outpatient Daya BEBE [facility] [id number] Univers 16:15:00 16:15:00 [facility] 2022-03-31 2022-03-31 Outpatient SFA SFA [id number] Fady 13:56:44 13:56:44 0124 [facility] [place] 2022-03-19 2022-03-19 Outpatient SFA SFA [id number] Fady 11:09:36 11:09:36 0112 [facility] [place] 2022-03-06 2022-03-06 Outpatient SFA SFA [id number] Fady 14:07:18 14:07:18 1230 [facility] [place] 2022-02-25 2022-02-25 Outpatient [id number] 00:00:00 00:00:00 Visit [id number] [id number]-a -e9da-8n4 [id number] 2022-02-24 2022-02-24 Outpatient SFA SFA [id number] Fady 16:17:21 16:17:21 1220 [facility] [place] 2022-02-11 2022-02-11 Outpatient SFA SFA [id number] Fady 15:21:08 15:21:08 1207 [facility] [place] 2022-01-13 2022-01-13 Outpatient SFA SFA [id number] Fady 13:59:33 13:59:33 1108 [facility] [place] 2022-01-02 2022-01-02 Outpatient [id number] 00:00:00 00:00:00 Visit 88db-4be8 [id number]-a -m0h1-3k8 [id number] 2021-12-29 2021-12-29 Outpatient SFA SFA [id number] Fady 11:22:55 11:22:55 1024 F Jose E 2021-12-17 2021-12-17 Outpatient [facility] [id number] Fady 13:53:32 13:53:32 1012 F Jose E 2021-10-21 2021-10-21 Outpatient [id number] 00:00:00 00:00:00 Visit [id number]-0225 [id number] -90cf-f70 [id number] 2020-12-30 2020-12-30 Outpatient DMG [facility] [id number] [facility]oted 08:02:00 08:02:00 [facility] 2020-10-29 2020-10-29 Outpatient JARAD RINCON [facility] [id number] Univers 13:40:00 13:40:00 JARAD LÓPEZ [facility] 2020-10-28 2020-10-28 Outpatient JARAD RINCON [facility] [id number] Univers 13:40:00 13:40:00 JARAD LÓPEZ [facility] 2020-10-15 2020-10-15 Outpatient JARAD RINCON [facility] [id number] Univers 13:00:00 13:00:00 JARAD LÓPEZ [facility] 2020-10-09 2020-10-09 Orders Doctor BURLESON [id number] Univers 00:00:00 00:00:00 Only Unassigned, LAWRENCE [id number] ity of [place] [facility] 4.2.7.2.686 Jean Marie as [id number] [address] 2020-10-07 2020-10-07 Outpatient Daya UREÑA [facility] [id number] Univers 15:30:00 15:30:00 [facility] 2020-10-03 2020-10-03 [facility] [id number] Univers 00:00:00 00:00:00 [facility] [id number] it y of Surgical 4.2.7.2.686 Jean Marie as Specialti [id number] Il dical es 198 [facility] 2020-09-24 2020-09-24 [facility] [id number] Univers 15:45:00 15:45:00 [facility] 2020-02-12 2020-02-13 Emergency X [facility] ERT [id number] Univers 19:02:00 00:09:00 [facility] 2020-02-12 2020-02-13 Emergency [facility] [id number] Univers 19:02:00 00:09:00 Iliana Jennings [place] 350.1.13.10 ity of [place] 4.2.7.2.686 [facility] [id number] [facility] [address] [place] [address] 2020-02-12 2020-02-13 Emergency [facility] [id number] 19:02:00 00:09:00 Iliana Jennings [place] 350.1.13.10 [place] 4.2.7.2.686 [place] [id number] [facility] 2019-10-09 2019-10-09 Orders Doctor SARAH BETH 1.2.840.114 [id number] Univers 00:00:00 00:00:00 Only Unassigned, LAWRENCE [id number] ity of [place] [facility] 4.2.7.2.686 Jean Marie as [phone] [facility] [address] [place] 2019-10-09 2019-10-09 Orders Doctor SARAH BETH 1.2.840.114 [id number] 00:00:00 00:00:00 Only Unassigned, LAWRENCE 350.1.13.10 [place] [facility] 4.2.7.2.686 [id number] 2019-02-14 2019-02-14 Office Deloris Escobar [facility] Bebe En counter/ Legacy 00:00:00 00:00:00 Visit Shelly Taveras [id number] [facility] [id number] [facility] 2018-09-23 2018-09-23 Office Antonietta Garcia [facility] [place] En counter/ Legacy 00:00:00 00:00:00 Visit Sarika Michael [id number] Replaced By [facility] [id number] ty Services Health Contact Center 2018-09-23 2018-09-23 Office Alec [facility] Legacy Encoun ter/ Legacy 00:00:00 00:00:00 Visit Sarika [id number] Replaced By [facility] [id number] ty Services Health Contact Center 2017-04-05 2017-04-05 Ambulatory nullFlavo [facility] 3 [id number] Memoria 17:15:00 17:15:00 Pre-Reg r Medicine 02 cate Vazquez winnie 2017-04-05 2017-04-05 Ambulatory nullFlavo [facility] 3 [id number] Memoria 17:15:00 17:15:00 Pre-Reg r Medicine 02 cate Christiano George zhou 2017-04-05 2017-04-05 Outpatient MHIE MHIE [id number] Memoria 11:15:00 11:15:00 02 cate Mera 2017-04-05 2017-04-05 Outpatient Morse, [facility] [id number] 11:15:00 11:15:00 Gail Zhou 02 2017-03-26 2017-03-26 Ambulatory nullFlavo [facility] 3 [id number] Memoria 21:15:00 21:15:00 Pre-Reg r Medicine 01 cate Christiano George winnie 2017-03-26 2017-03-26 Ambulatory nullFlavo [facility] 3 [id number] Memoria 21:15:00 21:15:00 Pre-Reg r Medicine 01 cate JohnsonAlvarado George zhou 2017-03-26 2017-03-26 Outpatient MHIE MHIE [id number] Memoria 15:15:00 15:15:00 01 cate Mera 2017-03-26 2017-03-26 Outpatient Morse, [facility] [id number] 15:15:00 15:15:00 Gail N 2016-12-07 2016-12-07 Outpatient MHIE MHIE [id number] Memoria 11:00:00 11:00:00 00 cate Mera 2016-12-07 2016-12-07 Outpatient MHIE MHIE [id number] Memoria 11:00:00 11:00:00 00 cate Mera Results Test Description Test Time Test Comments Results Result Comments Source BUPRENORPHINE AND METABOLITE 2022-04-22 08:25:44 Test Item Value Reference Range Interpretation Comme nts NORBUPRENORPHINE (test code = 19.4 ng/mL 31097) BUPRENORPHINE (test code = 55502) 13.7 ng/mL INTERPRETIVE INFORMATION: Buprenorphine a nd [...] its perform ance characteristics determined by [facility]. It has not been cl eared or approved by the [place] Food and Drug Administration. This test was p erformed in a CLIA certified [place] and is intended for clinical pu rposes. TESTING PERFORMED AT [facility] [address] [place] [address] CAP NO. 4 [id number] CLIA NO. [id number] [facility] has important pathology staff changes effective 05/06/2022. New pathology staff will provide un interrupted, excellent patient care an d clinical consultation. S ee URL: [email or web address]. UNLESS OTHERWIS E INDICATED, ALL TESTING PERFORM ED AT CLINICAL PATHOLOGY [facility] [address] [place], [place] CLIA: [id number], CAP: [id number] DRUG SCREEN, SERUM, NO [id number] 14:11:29 Test Item Value Reference Interpretation Comments Range AMPHETAMINES (test Negative code = 85137) BARBITURATES (test Negative code = 27043) BENZODIAZEPINES Negative (test code = 33656) COCAINE METABOLITE Negative (test code = 92397) METHADONE (test Negative code = 31677) OPIATES (test code Negative = 766707) PHENCYCLIDINE (test Negative code = 412709) PROPOXYPHENE (test Negative code = 823135) THC (CANNABIS) Negative (test code = 280509) ETHANOL (test code Negative Screen D ecision Limits Drug = 077879) Analyzed Screen Units - ----- ----- Amphetamine 500 ng/mL Barbiturate 150 ng/mL Benzodiazepines 100 ng/mL Cocaine 150 ng/ mL Ethanol 10 mg/dL Toxic Blo od Ethanol >300 mg/dL Met hadone 150 ng/mL Opiates 1 50 ng/mL Phencyclidine [...] and the perform ance characteristics determined by [facility] [facility] aboratory. This confirmati on testing has not been cleare d or approvedby the FDA. The laboratory is r egulated under CLIA asqualifie d to perform high-complexity testing. This testis used for patient testing purpose s. It should not beregarded as investigational or for research. BUPRENORPHINE AND [id number] 21:38:29 Test Item Value Reference Interpretation Comments Range NORBUPRENORPHINE 1.4 ng/mL (test code = 16591) BUPRENORPHINE (test 5.8 ng/mL INTERPRE TIVE INFORMATION: code = 03711) Buprenorphine and Metabolites, Se rum or Plasma, [...] i ts performance characteristics determined by [facility]. I t has not been cleared or approved by the US Food and Drug Administration. This test was performed i n a CLIA certified labor atory and is intended for clinical purposes. TESTI NG PERFORMED AT [facility], [place] [address] [address] [address] [place]. [id number] CLIA N O. [id number] DRUG SCREEN, SERUM, NO [id number] 12:06:32 Test Item Value Reference Interpretation Comments Range AMPHETAMINES (test Negative code = 20457) BARBITURATES (test Negative code = 45238) BENZODIAZEPINES Negative (test code = 27440) COCAINE METABOLITE Negative (test code = 06898) METHADONE (test Negative code = 45939) OPIATES (test code Negative = 122226) PHENCYCLIDINE (test Negative code = 124536) PROPOXYPHENE (test Negative code = 235947) THC (CANNABIS) Negative (test code = 556132) ETHANOL (test code Negative Screen D ecision Limits Drug = 255468) Analyzed Screen Units - ----- ----- Amphetamine [...] and the perform ance characteristics determined by [facility] aboratory. This confirmati on testing has not been cleare d or approvedby the FDA. The laboratory is r egulated under CLIA asqualifie d to perform high-complexity testing. This testis used for patient testing purpose s. It should not beregarded as investigational or for research. UNLES S OTHERWISE INDICATED, ALL TESTING PERFORMED [facility] [address] [place] [id number] LABORATORY DIRE CTOR: MELANY ANTHONY M.D. CLIA NUMBER [id number] [place]. [id number] Complete Blood Count Auto [id number] 21:10:00 Test Item Value Reference Range Interpretation [...] code = NRBCP) 0 % Comprehensive Metabolic [id number] 21:10:00 Test Item Value Reference Range Interpretation [...] 99 U/L 46-116 N = ALP) Ethanol [id number] 21:10:00 Test Item Value Reference Range Interpretation Comments Ethanol (test code = ETOH) < 3 mg/dL Coronavirus PCR, COVID19 [id number] 21:10:00 Test Item Value Reference Range Interpretation Comments Coronavirus PCR, For use under Emergency COVID19 Rapid (test Use Authorization (EUA) code = SARSCOV2) only. Coronavirus PCR, Reference Range: COVID19 Rapid (test Negative code = CVTYDUI67.1) SARS-CoV-2 PCR Result: Negative by PCR (test code = SARS-CoV-2 PCR Result:) COVID-19 Status: AsymptomaticCBC W/AUTO [id number] 00:00:00 Test Item Value Reference Range Interpretation [...] NUCLEATED RBCS (test code = 0.00 K/UL 46904) CBC W/AUTO [id number] 00:00:00 Test Item Value Reference Range Interpretation [...] NUCLEATED RBCS (test code = 0.00 K/UL 81530) CBC W/AUTO [id number] 00:00:00 Test Item Value Reference Range Interpretation [...] NUCLEATED RBCS (test code = 0.00 K/UL 94447) LIPID [id number] 00:00:00 Test Item Value Reference Range Interpretation Comments CHOLESTEROL (test code = 2210) 189 MG/DL TRIGLYCERIDES (test code = 2232) 135 MG/DL HDL CHOLESTEROL (test code = 2220) 64 MG/DL CALC LDL CHOL (test code = 2237) 102 MG/DL RISK RATIO LDL/HDL (test code = 1.59 RATIO 2238) LIPID [id number] 00:00:00 Test Item Value Reference Range Interpretation Comments CHOLESTEROL (test code = 2210) 189 MG/DL TRIGLYCERIDES (test code = 2232) 135 MG/DL HDL CHOLESTEROL (test code = 2220) 64 MG/DL CALC LDL CHOL (test code = 2237) 102 MG/DL RISK RATIO LDL/HDL (test code = 1.59 RATIO 2238) COMPREHENSIVE METABOLIC [id number] 00:00:00 Test Item Value Reference Range Interpretation Comments GLUCOSE (test code = 2217) 121 MG/DL BUN (test code = 2208) 22 MG/DL CREATININE (test code = 2214) 1.11 MG/DL eGFR AMER. (test code 66 ML/MIN/1.73 = 84760) eGFR NON- AMER. (test 57 ML/MIN/1.73 code = 79112) CALC BUN/CREAT (test code = 20 RATIO [...] code = 2219) 11 U/L COMPREHENSIVE METABOLIC [id number] 00:00:00 Test Item Value Reference Range Interpretation Comments GLUCOSE (test code = 2217) 121 MG/DL BUN (test code = 2208) 22 MG/DL CREATININE (test code = 2214) 1.11 MG/DL eGFR AMER. (test code 66 ML/MIN/1.73 = 82572) eGFR NON- AMER. (test 57 ML/MIN/1.73 code = 20528) CALC BUN/CREAT (test code = 20 RATIO 2235) SODIUM (test code = 2231) 138 MEQ/L POTASSIUM (test code = 2228) 4.4 MEQ/L CHLORIDE (test code = 2215) 106 MEQ/L CARBON DIOXIDE (test code = 20 MEQ/L 2206) CALCIUM (test code = 2208) 9.7 MG/DL [...] IRON BINDING CAPACITY AND IRON AND % [id number] 00:00:00 Test Item Value Reference Range Interpretation Comments IRON, SERUM (test code = 2221) 42 UG/DL UNSATURATED IBC (test code = ) 246 UG/DL CALC TOTAL IBC (test code = 2076) 288 UG/DL CALC % IRON SAT (test code = 2078) 15 % IRON BINDING CAPACITY AND IRON AND % [id number] 00:00:00 Test Item Value Reference Range Interpretation Comments IRON, SERUM (test code = 2221) 42 UG/DL UNSATURATED IBC (test code = 39284) 246 UG/DL CALC TOTAL IBC (test code = 2076) 288 UG/DL CALC % IRON SAT (test code = 2078) 15 % [id number] 00:00:00 Test Item Value Reference Range Interpretation Comments FERRITIN (test code = 5) 35 NG/ML [id number] 00:00:00 Test Item Value Reference Range Interpretation Comments FERRITIN (test code = 5) 35 NG/ML [id number] 00:00:00 Test Item Value Reference Range Interpretation Comments TRANSFERRIN (test code = 4936) 232 MG/DL [id number] 00:00:00 Test Item Value Reference Range Interpretation Comments TRANSFERRIN (test code = 4936) 232 MG/DL VITAMIN D, 25 [id number] 00:00:00 Test Item Value Reference Range Interpretation Comments VITAMIN D, 25 OH (test code = 4958) 15 NG/ML VITAMIN D, 25 [id number] 00:00:00 Test Item Value Reference Range Interpretation Comments VITAMIN D, 25 OH (test code = 4958) 15 NG/ML CBC W/AUTO [id number] 00:00:00 Test Item Value Reference Range Interpretation [...] NUCLEATED RBCS (test code = 0.00 K/UL 40764) CBC W/AUTO [id number] 00:00:00 Test Item Value Reference Range Interpretation [...] NUCLEATED RBCS (test code = 0.00 K/UL 43826) CBC W/AUTO [id number] 00:00:00 Test Item Value Reference Range Interpretation [...] NUCLEATED RBCS (test code = 0.00 K/UL 60564) LIPID [id number] 00:00:00 Test Item Value Reference Range Interpretation Comments CHOLESTEROL (test code = 2210) 189 MG/DL TRIGLYCERIDES (test code = 2232) 135 MG/DL HDL CHOLESTEROL (test code = 2220) 64 MG/DL CALC LDL CHOL (test code = 2237) 102 MG/DL RISK RATIO LDL/HDL (test code = 1.59 RATIO 2238) LIPID [id number] 00:00:00 Test Item Value Reference Range Interpretation Comments CHOLESTEROL (test code = 2210) 189 MG/DL TRIGLYCERIDES (test code = 2232) 135 MG/DL HDL CHOLESTEROL (test code = 2220) 64 MG/DL CALC LDL CHOL (test code = 2237) 102 MG/DL RISK RATIO LDL/HDL (test code = 1.59 RATIO 2238) COMPREHENSIVE METABOLIC [id number] 00:00:00 Test Item Value Reference Range Interpretation Comments GLUCOSE (test code = 2217) 121 MG/DL BUN (test code = 2208) 22 MG/DL CREATININE (test code = 2214) 1.11 MG/DL eGFR AMER. (test code 66 ML/MIN/1.73 = 94495) eGFR NON- AMER. (test 57 ML/MIN/1.73 code = 72312) CALC BUN/CREAT (test code = 20 RATIO [...] code = 2219) 11 U/L COMPREHENSIVE METABOLIC [id number] 00:00:00 Test Item Value Reference Range Interpretation Comments GLUCOSE (test code = 2217) 121 MG/DL BUN (test code = 2208) 22 MG/DL CREATININE (test code = 2214) 1.11 MG/DL eGFR AMER. (test code 66 ML/MIN/1.73 = 64415) eGFR NON- AMER. (test 57 ML/MIN/1.73 code = 60869) CALC BUN/CREAT (test code = 20 RATIO [...] = 2203) AST (test code = 2218) 11 U/L ALT (test code = 2219) 11 U/L IRON BINDING CAPACITY AND IRON AND % [id number] 00:00:00 Test Item Value Reference Range Interpretation Comments IRON, SERUM (test code = 2221) 42 UG/DL UNSATURATED IBC (test code = 04129) 246 UG/DL CALC TOTAL IBC (test code = 2076) 288 UG/DL CALC % IRON SAT (test code = 2078) 15 % IRON BINDING CAPACITY AND IRON AND % [id number] 00:00:00 Test Item Value Reference Range Interpretation Comments IRON, SERUM (test code = 2) 42 UG/DL UNSATURATED IBC (test code = 26029) 246 UG/DL CALC TOTAL IBC (test code = 7) 288 UG/DL CALC % IRON SAT (test code = 9) 15 % [id number] 00:00:00 Test Item Value Reference Range Interpretation Comments FERRITIN (test code = 5) 35 NG/ML [id number] 00:00:00 Test Item Value Reference Range Interpretation Comments FERRITIN (test code = 5) 35 NG/ML [id number] 00:00:00 Test Item Value Reference Range Interpretation Comments TRANSFERRIN (test code = 4936) 232 MG/DL [id number] 00:00:00 Test Item Value Reference Range Interpretation Comments TRANSFERRIN (test code = 4936) 232 MG/DL VITAMIN D, 25 [id number] 00:00:00 Test Item Value Reference Range Interpretation Comments VITAMIN D, 25 OH (test code = 4958) 15 NG/ML VITAMIN D, 25 [id number] 00:00:00 Test Item Value Reference Range Interpretation Comments VITAMIN D, 25 OH (test code = 4958) 15 NG/ML CBC W/AUTO [id number] 00:00:00 Test Item Value Reference Range Interpretation [...] NUCLEATED RBCS (test code = 0.00 K/UL 18836) CBC W/AUTO [id number] 00:00:00 Test Item Value Reference Range Interpretation [...] NUCLEATED RBCS (test code = 0.00 K/UL 36358) CBC W/AUTO [id number] 00:00:00 Test Item Value Reference Range Interpretation [...] NUCLEATED RBCS (test code = 0.00 K/UL 32178) LIPID [id number] 00:00:00 Test Item Value Reference Range Interpretation Comments CHOLESTEROL (test code = 2210) 189 MG/DL TRIGLYCERIDES (test code = 2232) 135 MG/DL HDL CHOLESTEROL (test code = 2220) 64 MG/DL CALC LDL CHOL (test code = 2237) 102 MG/DL RISK RATIO LDL/HDL (test code = 1.59 RATIO 2238) LIPID [id number] 00:00:00 Test Item Value Reference Range Interpretation Comments CHOLESTEROL (test code = 2210) 189 MG/DL TRIGLYCERIDES (test code = 2232) 135 MG/DL HDL CHOLESTEROL (test code = 2220) 64 MG/DL CALC LDL CHOL (test code = 2237) 102 MG/DL RISK RATIO LDL/HDL (test code = 1.59 RATIO 2238) COMPREHENSIVE METABOLIC [id number] 00:00:00 Test Item Value Reference Range Interpretation Comments GLUCOSE (test code = 2217) 121 MG/DL BUN (test code = 2208) 22 MG/DL CREATININE (test code = 2214) 1.11 MG/DL eGFR AMER. (test code 66 ML/MIN/1.73 = 20573) eGFR NON- AMER. (test 57 ML/MIN/1.73 code = 73446) CALC BUN/CREAT (test code = 20 RATIO [...] code = 2219) 11 U/L COMPREHENSIVE METABOLIC [id number] 00:00:00 Test Item Value Reference Range Interpretation Comments GLUCOSE (test code = 2217) 121 MG/DL BUN (test code = 2208) 22 MG/DL CREATININE (test code = 2214) 1.11 MG/DL eGFR AMER. (test code 66 ML/MIN/1.73 = 36039) eGFR NON- AMER. (test 57 ML/MIN/1.73 code = 64435) CALC BUN/CREAT (test code = 20 RATIO [...] IRON BINDING CAPACITY AND IRON AND % [id number] 00:00:00 Test Item Value Reference Range Interpretation Comments IRON, SERUM (test code = 2221) 42 UG/DL UNSATURATED IBC (test code = ) 246 UG/DL CALC TOTAL IBC (test code = 2076) 288 UG/DL CALC % IRON SAT (test code = 2078) 15 % IRON BINDING CAPACITY AND IRON AND % [id number] 00:00:00 Test Item Value Reference Range Interpretation Comments IRON, SERUM (test code = 2222) 42 UG/DL UNSATURATED IBC (test code = 96040) 246 UG/DL CALC TOTAL IBC (test code = 7) 288 UG/DL CALC % IRON SAT (test code = 2079) 15 % [id number] 00:00:00 Test Item Value Reference Range Interpretation Comments FERRITIN (test code = 5) 35 NG/ML [id number] 00:00:00 Test Item Value Reference Range Interpretation Comments FERRITIN (test code = 5) 35 NG/ML [id number] 00:00:00 Test Item Value Reference Range Interpretation Comments TRANSFERRIN (test code = 4936) 232 MG/DL [id number] 00:00:00 Test Item Value Reference Range Interpretation Comments TRANSFERRIN (test code = 4936) 232 MG/DL VITAMIN D, 25 [id number] 00:00:00 Test Item Value Reference Range Interpretation Comments VITAMIN D, 25 OH (test code = 4958) 15 NG/ML VITAMIN D, 25 [id number] 00:00:00 Test Item Value Reference Range Interpretation Comments VITAMIN D, 25 OH (test code = 4958) 15 NG/ML CT HEAD WO [id number] 04:01:33 No acute intracranial abnormality. Preliminary Report [...] have reviewed this study and agree withtheabove report.[facility] Test Item Value Reference Range Interpretation Comments APPEARANCE (test code = Turbid Clear A 4503530307) COLOR (test code = Roxy Yellow A 2365593327) PH (test code = 4.8-8.0 0904737910) SP GRAVITY (test code = 1.003-1.030 H 5308481581) GLU U QUAL (test code = Normal Normal 2959063814) BLOOD (test code = Negative Negative 8794160617) KETONES (test code = 20 mg/dL Negative A 6269831322) PROTEIN (test code = 30 mg/dL Negative A 2887-8) UROBILIN (test code = Normal Normal 5673760871) BILIRUBIN (test code = Negative Negative 8043133605) NITRITE (test code = Negative Negative 4287346428) LEUK MARKOS (test code = Negative Negative 0367587551) RBC/HPF (test code = See_Comment [Autom ated message] 7210220694) The system [employer] generated this result transmitted ref erence range: 0 - 3 HP F. The reference range was not used to int erpret this result as normal/abnormal . WBC/HPF (test code = See_Comment [Autom ated message] 3376879121) The system [employer] generated this result transmitted ref erence range: 0 - 5 HP F. The reference range was not used to int erpret this result as normal/abnormal . BACTERIA (test code = Many Negative A 5111378877) MUCOUS (test code = Moderate Negative LPF A 1627687564) HYAL CAST (test code = See_Comment H [Aut omated message] 6804502621) The system [employer] generated this result transmitted ref erence range: <=2 LPF. The reference range was not used to int erpret this result as normal/abnormal . GRAN CASTS (test code = See_Comment H [Au tomated message] 3926242186) The system [employer] generated this result transmitted ref erence range: <=1 LPF. The reference range was not used to int erpret this result as normal/abnormal . Lab Interpretation (test Abnormal code = 76553-2) [facility] / [facility] - DRUG SCREEN [id number] 03:00:00 Test Item Value Reference Range Interpretation Comments BENZO U (test code = Negative Negative 5472191271) JESSICA U (test code = Negative Negative 0117306315) AMPHET (test code = Negative Negative 1877598986) THC (test code = Negative Negative 4895448569) METHADONE (test code Negative Negative = 1085461095) Meth U (test code = Negative Negative 2195926787) OPIATES (test code = Negative Negative 3551937297) Cocaine Metabolite Negative Negative (test code = 5813830826) PROPOXY (test code = Negative Negative 2213459350) Tric U (test code = Presumptive Negative A Confirma tion of 6706666857) Positive Presumptive Positive TCA result requires physician order and this will b e sent to referen ce lab. PCP (test code = Negative Negative 4939189306) OXYCOD (test code = Negative Negative 6967060513) TULIO (test code = Urine Drug Cutoff [...] testing). Lab Interpretation Abnormal (test code = 87383-2) [facility] [id number] 02:55:00 Test Item Value Reference Range Interpretation Comments TROPONIN I (test <0.012 See_Comment [Automated code = 9289427350) message] The system which generated this result [...] ? Lab Interpretation Normal (test code = 77856-9) [facility], [id number] 02:50:00 Test Item Value Reference Range Interpretation Comments VALPROIC A (test code = <10 50-100 L 9645116351) TULIO (test code = TULIO) Toxic Range: ?Greater than 100 ug/mL Lab Interpretation (test Abnormal code = 94690-1) [facility]2020-[facility]-08 02:45:00 Test Item Value Reference Range Interpretation Comments SALICYLATE (test code <10 mg/L = 8533313455) TULIO (test code = TULIO) Therapeutic Range: ? Analgesic and Antipyretic Use ? 20-100 mg/L ? ? Anti-Inflammatory Use ? 100-250 mg/L Toxic Range: ? Greater than 300 mg/L [facility]2020-12-08 02:45:00 Test Item Value Reference Range Interpretation Comments ALCOHOL (test code = <10 mg/dL 4974382035) TULIO (test code = TULIO) <10 [id number] Toxic>100 Depression of K[employer]ITTED GARMENT FINISHER>400 Fatalities Reported [facility]ET[facility]EN2020-12-08 02:44:00 Test Item Value Reference Range Interpretation Comments ACETAMINOP (test code = <10.0 10-30 L 3924726658) TULIO (test code = TULIO) Toxic: Greater than 200 ug/mL @ 4 hour post ingestion or greater than 50 ug/mL @ 12 hour post ingestion Lab Interpretation (test Abnormal code = 97444-6) [facility]oCOMP[facility] METABOLIC PANEL (15857)2020-02-13 02:43:00 Test Item Value Reference Range Interpretation Comments NA (test code = 138 mmol/L 135-145 9071877787) K (test code = 5.1 mmol/L 3.5-5 H 0665260197) CL (test code = 106 mmol/L 98-108 9645734026) CO2 TOTAL (test code = 19 mmol/L 23-31 L 7611567707) AGAP (test code = 2-16 9072254163) BUN (test code = 26 mg/dL 7-23 H 4186091691) GLUCOSE (test code = 113 mg/dL 70-110 H 2828919481) CREATININE (test code = 1.20 mg/dL 0.5-1.04 H 1669116197) TOTAL BILI (test code = 0.5 mg/dL 0.1-1.4 1999370608) CALCIUM (test code = 10.4 mg/dL 8.6-10.6 8163868448) T PROTEIN (test code = 8.4 g/dL 6.3-8.2 H 5799924142) ALBUMIN (test code = 4.7 g/dL 3.5-5 5113573302) ALK PHOS (test code = 115 U/L 34-122 0976216571) ALTv (test code = 14 U/L 5-35 1742-6) AST(SGOT) (test code = 20 U/L 13-40 0755340151) eGFR Calculation mL/min/1.73m2 (Non-) (test code = 6880869507) eGFR Calculation mL/min/1.73m2 () (test code = 3631345978) TULIO (test code = TULIO) Association of [...] tests). Lab Interpretation Abnormal (test code = 29498-1) [facility]ID NOW RAPID TESTING)2020-02-13 02:15:00 Test Item Value Reference Range Interpretation Comments SARS-CoV-2 Rapid ID NOW Not Detected Not Detected (test code = 13425-7) TULIO (test code = TULIO) ID NOW COVID-19 Assay is an isothermal nucleic acid amplification test intended for the qualitative detection of nucleic acid from SARS-CoV-2 viral RNA in nasopharyngeal (SEASONAL DELIVERY DRIVER) specimens. It is used under Emergency Use [...] indicated. Lab Interpretation Normal (test code = 29519-0) [facility] [id number] 01:53:00 Test Item Value Reference Range Interpretation Comments WBC (test code = See_Comment H [Automated 6325-2) message] The sy stem which generated this result transmitted reference range : 4.30 - 11.10 10*3/?L. The reference range was not used to interpret this result as normal/abnormal . RBC (test code = See_Comment [Automated 809-8) message] The sy stem which generated this [...] RDW-SD (test code = 43.3 fL 39-49.9 88164-3) RDW-CV (test code = 14.1 % 12-15.5 788-0) PLT (test code = See_Comment H [Automated 777-3) message] The sy stem which generated this result transmitted reference range : 166 - 358 10*3/ ?L. The reference r xochitl was not used to interpret this result as normal/abnormal . MPV (test code = 9.6 fL 9.5-12.9 80635-5) NRBC/100 WBC (test See_Comment [Automat ed code = 8433161693) message] The system which generated this result transmitted reference range : 0.0 - 10.0 /100 WBCs. The refer ence range was not u sed to interpret th is result as normal/abnormal . NRBC x10^3 (test code <0.01 See_Comment [Auto mated = 3021950099) message] The s ystem which generated this result transmitted reference range : 10*3/?L. The reference range was not used to interpret this result as normal/abnormal . GRAN MAT (NEUT) % 82.3 % (test code = 770-8) IMM GRAN % (test code 0.70 % = 2302738889) LYMPH % (test code = 12.5 % 736-9) MONO % (test code = 3.9 % 5905-5) EOS % (test code = 0.2 % 713-8) BASO % (test code = 0.4 % 706-2) GRAN MAT x10^3(ANC) 9.44 10*3/uL 1.88-7.09 H (test code = 2044595368) IMM GRAN x10^3 (test 0.08 10*3/uL 0-0.06 H code = 2957005829) LYMPH x10^3 (test code 1.43 10*3/uL 1.32-3.29 = 731-0) MONO x10^3 (test code 0.45 10*3/uL 0.33-0.92 = 742-7) EOS x10^3 (test code = <0.03 0.03-0.39 L 711-2) BASO x10^3 (test code 0.05 10*3/uL 0.01-0.07 = 704-7) Lab Interpretation Abnormal (test code = 64970-2) [facility] by RT-PCR (HIGH RISK) 2019-09-22 00:00:00 Test Item Value Reference Range Interpretation Comments SARS-CoV-2 INTERPRETATION (test NEGATIVE code = 56734) SOURCE (test code = 93974) NOT SPECIFIED SARS-CoV-2 (COVID-19) by RT-PCR (HIGH RISK)2019-09-22 00:00:00 Test Item Value Reference Range Interpretation Comments SARS-CoV-2 INTERPRETATION (test NEGATIVE code = 79000) SOURCE (test code = 95923) NOT SPECIFIED SARS-CoV-2 (COVID-19) by RT-PCR (HIGH RISK)2019-09-22 00:00:00 Test Item Value Reference Range Interpretation Comments SARS-CoV-2 INTERPRETATION (test NEGATIVE code = 70769) SOURCE (test code = 64489) NOT SPECIFIED SARS-CoV-2 (COVID-19) by RT-PCR (HIGH RISK)2019-09-22 00:00:00 Test Item Value Reference Range Interpretation Comments SARS-CoV-2 INTERPRETATION (test NEGATIVE code = 71431) SOURCE (test code = 33467) NOT SPECIFIED SARS-CoV-2 (COVID-19) by RT-PCR (HIGH RISK)2019-09-22 00:00:00 Test Item Value Reference Range Interpretation Comments SARS-CoV-2 INTERPRETATION (test NEGATIVE code = 30864) SOURCE (test code = 53356) NOT SPECIFIED SARS-CoV-2 (COVID-19) by RT-PCR (HIGH RISK)2019-09-22 00:00:00 Test Item Value Reference Range Interpretation Comments SARS-CoV-2 INTERPRETATION (test NEGATIVE code = 42369) SOURCE (test code = 53838) NOT SPECIFIED DRUG SCREEN, [id number] 00:00:00 Test Item Value Reference Range Interpretation Comments AMPHETAMINES (test code = 39173) Negative BARBITURATES (test code = 76412) Negative BENZODIAZEPINES (test code = 81664) Positive COCAINE METABOLITE (test code = Negative 55136) METHADONE (test code = 64757) Negative OPIATES (test code = 840286) Negative PHENCYCLIDINE (test code = 232145) Negative PROPOXYPHENE (test code = 355730) Negative THC (CANNABIS) (test code = 850733) Negative ETHANOL (test code = 513559) Negative DRUG SCREEN, [id number] 00:00:00 Test Item Value Reference Range Interpretation Comments AMPHETAMINES (test code = 53995) Negative BARBITURATES (test code = 58328) Negative BENZODIAZEPINES (test code = 62863) Positive COCAINE METABOLITE (test code = Negative 74327) METHADONE (test code = 99637) Negative OPIATES (test code = 789040) Negative PHENCYCLIDINE (test code = 847687) Negative PROPOXYPHENE (test code = 046337) Negative THC (CANNABIS) (test code = 553781) Negative ETHANOL (test code = 859528) Negative DRUG SCREEN, [id number] 00:00:00 Test Item Value Reference Range Interpretation Comments AMPHETAMINES (test code = 94043) Negative BARBITURATES (test code = 21584) Negative BENZODIAZEPINES (test code = 58725) Positive COCAINE METABOLITE (test code = Negative 37344) METHADONE (test code = 48640) Negative OPIATES (test code = 268713) Negative PHENCYCLIDINE (test code = 224097) Negative PROPOXYPHENE (test code = 904172) Negative THC (CANNABIS) (test code = 795559) Negative ETHANOL (test code = 573884) Negative DRUG SCREEN, [id number] 00:00:00 Test Item Value Reference Range Interpretation Comments AMPHETAMINES (test code = 87882) Negative BARBITURATES (test code = 29867) Negative BENZODIAZEPINES (test code = 88279) Positive COCAINE METABOLITE (test code = Negative 27454) METHADONE (test code = 28574) Negative OPIATES (test code = 652736) Negative PHENCYCLIDINE (test code = 626458) Negative PROPOXYPHENE (test code = 494818) Negative THC (CANNABIS) (test code = 964209) Negative ETHANOL (test code = 385287) Negative DRUG SCREEN, [id number] 00:00:00 Test Item Value Reference Range Interpretation Comments AMPHETAMINES (test code = 02808) Negative BARBITURATES (test code = 72998) Negative BENZODIAZEPINES (test code = 30918) Positive COCAINE METABOLITE (test code = Negative 40769) METHADONE (test code = 14165) Negative OPIATES (test code = 312525) Negative PHENCYCLIDINE (test code = 176392) Negative PROPOXYPHENE (test code = 273357) Negative THC (CANNABIS) (test code = 637070) Negative ETHANOL (test code = 906607) Negative DRUG SCREEN, [id number] 00:00:00 Test Item Value Reference Range Interpretation Comments AMPHETAMINES (test code = 65888) Negative BARBITURATES (test code = 13917) Negative BENZODIAZEPINES (test code = 82404) Positive COCAINE METABOLITE (test code = Negative 05115) METHADONE (test code = 95933) Negative OPIATES (test code = 687587) Negative PHENCYCLIDINE (test code = 938041) Negative PROPOXYPHENE (test code = 695972) Negative THC (CANNABIS) (test code = 371396) Negative ETHANOL (test code = 228176) Negative BUPRENORPHINE AND [id number] 00:00:00 Test Item Value Reference Range Interpretation Comments NORBUPRENORPHINE (test code = <1.0 ng/mL 20065) BUPRENORPHINE (test code = 71725) <1.0 ng/mL BUPRENORPHINE AND [id number] 00:00:00 Test Item Value Reference Range Interpretation Comments NORBUPRENORPHINE (test code = <1.0 ng/mL 04323) BUPRENORPHINE (test code = 61784) <1.0 ng/mL BUPRENORPHINE AND [id number] 00:00:00 Test Item Value Reference Range Interpretation Comments NORBUPRENORPHINE (test code = <1.0 ng/mL 63117) BUPRENORPHINE (test code = 53022) <1.0 ng/mL BUPRENORPHINE AND [id number] 00:00:00 Test Item Value Reference Range Interpretation Comments NORBUPRENORPHINE (test code = <1.0 ng/mL 29190) BUPRENORPHINE (test code = 87757) <1.0 ng/mL BUPRENORPHINE AND [id number] 00:00:00 Test Item Value Reference Range Interpretation Comments NORBUPRENORPHINE (test code = <1.0 ng/mL 70844) BUPRENORPHINE (test code = 40676) <1.0 ng/mL BUPRENORPHINE AND [id number] 00:00:00 Test Item Value Reference Range Interpretation Comments NORBUPRENORPHINE (test code = <1.0 ng/mL 64030) BUPRENORPHINE (test code = 67963) <1.0 ng/mL COMPREHENSIVE METABOLIC [id number] 00:00:00 Test Item Value Reference Range Interpretation Comments GLUCOSE (test code = 2217) 105 MG/DL BUN (test code = 2208) 19 MG/DL CREATININE (test code = 2214) 0.94 MG/DL eGFR AMER. (test code 81 ML/MIN/1.73 = 34174) eGFR NON- AMER. (test 70 ML/MIN/1.73 code = 19461) CALC BUN/CREAT (test code = 20 RATIO [...] code = 2219) 18 U/L COMPREHENSIVE METABOLIC [id number] 00:00:00 Test Item Value Reference Range Interpretation Comments GLUCOSE (test code = 2217) 105 MG/DL BUN (test code = 2208) 19 MG/DL CREATININE (test code = 2214) 0.94 MG/DL eGFR AMER. (test code 81 ML/MIN/1.73 = 95719) eGFR NON- AMER. (test 70 ML/MIN/1.73 code = 97603) CALC BUN/CREAT (test code = 20 RATIO [...] code = 2219) 18 U/L COMPREHENSIVE METABOLIC [id number] 00:00:00 Test Item Value Reference Range Interpretation Comments GLUCOSE (test code = 2217) 105 MG/DL BUN (test code = 2208) 19 MG/DL CREATININE (test code = 2214) 0.94 MG/DL eGFR AMER. (test code 81 ML/MIN/1.73 = 19847) eGFR NON- AMER. (test 70 ML/MIN/1.73 code = 96379) CALC BUN/CREAT (test code = 20 RATIO [...] code = 2219) 18 U/L COMPREHENSIVE METABOLIC [id number] 00:00:00 Test Item Value Reference Range Interpretation Comments GLUCOSE (test code = 2217) 105 MG/DL BUN (test code = 2208) 19 MG/DL CREATININE (test code = 2214) 0.94 MG/DL eGFR AMER. (test code 81 ML/MIN/1.73 = 00508) eGFR NON- AMER. (test 70 ML/MIN/1.73 code = 72865) CALC BUN/CREAT (test code = 20 RATIO [...] code = 2219) 18 U/L COMPREHENSIVE METABOLIC [id number] 00:00:00 Test Item Value Reference Range Interpretation Comments GLUCOSE (test code = 2217) 105 MG/DL BUN (test code = 2208) 19 MG/DL CREATININE (test code = 2214) 0.94 MG/DL eGFR AMER. (test code 81 ML/MIN/1.73 = 75845) eGFR NON- AMER. (test 70 ML/MIN/1.73 code = 79994) CALC BUN/CREAT (test code = 20 RATIO [...] code = 2219) 18 U/L COMPREHENSIVE METABOLIC [id number] 00:00:00 Test Item Value Reference Range Interpretation Comments GLUCOSE (test code = 2217) 105 MG/DL BUN (test code = 2208) 19 MG/DL CREATININE (test code = 2214) 0.94 MG/DL eGFR AMER. (test code 81 ML/MIN/1.73 = 01040) eGFR NON- AMER. (test 70 ML/MIN/1.73 code = 40028) CALC BUN/CREAT (test code = 20 RATIO [...] code = 2219) 18 U/L DRUG SCREEN, [id number] 00:00:00 Test Item Value Reference Range Interpretation Comments AMPHETAMINES (test code = 17370) Negative BARBITURATES (test code = 65868) Negative BENZODIAZEPINES (test code = 81554) Negative COCAINE METABOLITE (test code = Negative 42249) METHADONE (test code = 44775) Negative OPIATES (test code = 821848) Negative PHENCYCLIDINE (test code = 951921) Negative PROPOXYPHENE (test code = 379324) Negative THC (CANNABIS) (test code = 817982) Negative ETHANOL (test code = 409628) Negative DRUG SCREEN, [id number] 00:00:00 Test Item Value Reference Range Interpretation Comments AMPHETAMINES (test code = 22202) Negative BARBITURATES (test code = 47117) Negative BENZODIAZEPINES (test code = 91769) Negative COCAINE METABOLITE (test code = Negative 31392) METHADONE (test code = 77868) Negative OPIATES (test code = 984245) Negative PHENCYCLIDINE (test code = 259824) Negative PROPOXYPHENE (test code = 167714) Negative THC (CANNABIS) (test code = 642538) Negative ETHANOL (test code = 621927) Negative DRUG SCREEN, [id number] 00:00:00 Test Item Value Reference Range Interpretation Comments AMPHETAMINES (test code = 91863) Negative BARBITURATES (test code = 77910) Negative BENZODIAZEPINES (test code = 17226) Negative COCAINE METABOLITE (test code = Negative 18985) METHADONE (test code = 28108) Negative OPIATES (test code = 092603) Negative PHENCYCLIDINE (test code = 636462) Negative PROPOXYPHENE (test code = 924229) Negative THC (CANNABIS) (test code = 292089) Negative ETHANOL (test code = 498885) Negative DRUG SCREEN, [id number] 00:00:00 Test Item Value Reference Range Interpretation Comments AMPHETAMINES (test code = 63764) Negative BARBITURATES (test code = 71210) Negative BENZODIAZEPINES (test code = 19276) Negative COCAINE METABOLITE (test code = Negative 22054) METHADONE (test code = 53714) Negative OPIATES (test code = 883773) Negative PHENCYCLIDINE (test code = 132149) Negative PROPOXYPHENE (test code = 600859) Negative THC (CANNABIS) (test code = 466657) Negative ETHANOL (test code = 739029) Negative DRUG SCREEN, [id number] 00:00:00 Test Item Value Reference Range Interpretation Comments AMPHETAMINES (test code = 86856) Negative BARBITURATES (test code = 46915) Negative BENZODIAZEPINES (test code = 02371) Negative COCAINE METABOLITE (test code = Negative 39968) METHADONE (test code = 74791) Negative OPIATES (test code = 072546) Negative PHENCYCLIDINE (test code = 902758) Negative PROPOXYPHENE (test code = 097854) Negative THC (CANNABIS) (test code = 464516) Negative ETHANOL (test code = 775948) Negative DRUG SCREEN, [id number] 00:00:00 Test Item Value Reference Range Interpretation Comments AMPHETAMINES (test code = 77451) Negative BARBITURATES (test code = 30568) Negative BENZODIAZEPINES (test code = 41319) Negative COCAINE METABOLITE (test code = Negative 87000) METHADONE (test code = 70505) Negative OPIATES (test code = 137647) Negative PHENCYCLIDINE (test code = 109770) Negative PROPOXYPHENE (test code = 541921) Negative THC (CANNABIS) (test code = 785514) Negative ETHANOL (test code = 607060) Negative CBC W/AUTO [id number] 00:00:00 Test Item Value Reference Range Interpretation [...] code = 1015) 307 K/UL CBC W/AUTO [id number] 00:00:00 Test Item Value Reference Range Interpretation [...] code = 1015) 307 K/UL CBC W/AUTO [id number] 00:00:00 Test Item Value Reference Range Interpretation [...] code = 1015) 307 K/UL CBC W/AUTO [id number] 00:00:00 Test Item Value Reference Range Interpretation [...] code = 1015) 307 K/UL CBC W/AUTO [id number] 00:00:00 Test Item Value Reference Range Interpretation [...] code = 1015) 307 K/UL CBC W/AUTO [id number] 00:00:00 Test Item Value Reference Range Interpretation [...] code = 1015) 307 K/UL CBC W/AUTO [id number] 00:00:00 Test Item Value Reference Range Interpretation [...] code = 1015) 307 K/UL CBC W/AUTO [id number] 00:00:00 Test Item Value Reference Range Interpretation [...] code = 1015) 307 K/UL CBC W/AUTO [id number] 00:00:00 Test Item Value Reference Range Interpretation [...] code = 1015) 307 K/UL DRUG SCREEN, [id number] 00:00:00 Test Item Value Reference Range Interpretation Comments AMPHETAMINES (test code = 89841) Negative BARBITURATES (test code = 26436) Negative BENZODIAZEPINES (test code = 86996) Positive COCAINE METABOLITE (test code = Negative 96554) METHADONE (test code = 01325) Negative OPIATES (test code = 957138) Negative PHENCYCLIDINE (test code = 167807) Negative PROPOXYPHENE (test code = 777646) Negative THC (CANNABIS) (test code = 009083) Negative ETHANOL (test code = 291290) Negative DRUG SCREEN, [id number] 00:00:00 Test Item Value Reference Range Interpretation Comments AMPHETAMINES (test code = 42257) Negative BARBITURATES (test code = 64076) Negative BENZODIAZEPINES (test code = 59087) Positive COCAINE METABOLITE (test code = Negative 29018) METHADONE (test code = 85038) Negative OPIATES (test code = 245914) Negative PHENCYCLIDINE (test code = 264054) Negative PROPOXYPHENE (test code = 719566) Negative THC (CANNABIS) (test code = 692794) Negative ETHANOL (test code = 602712) Negative DRUG SCREEN, [id number] 00:00:00 Test Item Value Reference Range Interpretation Comments AMPHETAMINES (test code = 96069) Negative BARBITURATES (test code = 81136) Negative BENZODIAZEPINES (test code = 47202) Positive COCAINE METABOLITE (test code = Negative 68000) METHADONE (test code = 92842) Negative OPIATES (test code = 313967) Negative PHENCYCLIDINE (test code = 051939) Negative PROPOXYPHENE (test code = 359185) Negative THC (CANNABIS) (test code = 607991) Negative ETHANOL (test code = 069284) Negative DRUG SCREEN, [id number] 00:00:00 Test Item Value Reference Range Interpretation Comments AMPHETAMINES (test code = 97489) Negative BARBITURATES (test code = 23006) Negative BENZODIAZEPINES (test code = 53681) Positive COCAINE METABOLITE (test code = Negative 09918) METHADONE (test code = 60017) Negative OPIATES (test code = 458094) Negative PHENCYCLIDINE (test code = 145259) Negative PROPOXYPHENE (test code = 036319) Negative THC (CANNABIS) (test code = 560846) Negative ETHANOL (test code = 874404) Negative DRUG SCREEN, [id number] 00:00:00 Test Item Value Reference Range Interpretation Comments AMPHETAMINES (test code = 95054) Negative BARBITURATES (test code = 68149) Negative BENZODIAZEPINES (test code = 66695) Positive COCAINE METABOLITE (test code = Negative 56019) METHADONE (test code = 25915) Negative OPIATES (test code = 697721) Negative PHENCYCLIDINE (test code = 764312) Negative PROPOXYPHENE (test code = 798952) Negative THC (CANNABIS) (test code = 730005) Negative ETHANOL (test code = 851567) Negative DRUG SCREEN, [id number] 00:00:00 Test Item Value Reference Range Interpretation Comments AMPHETAMINES (test code = 40219) Negative BARBITURATES (test code = 60105) Negative BENZODIAZEPINES (test code = 49582) Positive COCAINE METABOLITE (test code = Negative 93511) METHADONE (test code = 14587) Negative OPIATES (test code = 004142) Negative PHENCYCLIDINE (test code = 953125) Negative PROPOXYPHENE (test code = 841413) Negative THC (CANNABIS) (test code = 242280) Negative ETHANOL (test code = 995979) Negative BUPRENORPHINE AND [id number] 00:00:00 Test Item Value Reference Range Interpretation Comments NORBUPRENORPHINE (test code = 2.7 ng/mL 87994) BUPRENORPHINE (test code = 69225) 6.4 ng/mL BUPRENORPHINE AND [id number] 00:00:00 Test Item Value Reference Range Interpretation Comments NORBUPRENORPHINE (test code = 2.7 ng/mL 93539) BUPRENORPHINE (test code = 81214) 6.4 ng/mL BUPRENORPHINE AND [id number] 00:00:00 Test Item Value Reference Range Interpretation Comments NORBUPRENORPHINE (test code = 2.7 ng/mL 97001) BUPRENORPHINE (test code = 61205) 6.4 ng/mL BUPRENORPHINE AND [id number] 00:00:00 Test Item Value Reference Range Interpretation Comments NORBUPRENORPHINE (test code = 2.7 ng/mL 60688) BUPRENORPHINE (test code = 62373) 6.4 ng/mL BUPRENORPHINE AND [id number] 00:00:00 Test Item Value Reference Range Interpretation Comments NORBUPRENORPHINE (test code = 2.7 ng/mL 49329) BUPRENORPHINE (test code = 66826) 6.4 ng/mL BUPRENORPHINE AND [id number] 00:00:00 Test Item Value Reference Range Interpretation Comments NORBUPRENORPHINE (test code = 2.7 ng/mL 77423) BUPRENORPHINE (test code = 41398) 6.4 ng/mL COMPREHENSIVE METABOLIC PANEL [ADDED]2019-06-15 00:00:00 Test Item Value Reference Range Interpretation Comments GLUCOSE (test code = 2217) 112 MG/DL BUN (test code = 2208) 32 MG/DL CREATININE (test code = 2214) 1.18 MG/DL eGFR AMER. (test code 62 ML/MIN/1.73 = 46122) eGFR NON- AMER. (test 53 ML/MIN/1.73 code = 62970) CALC BUN/CREAT (test code = 27 RATIO [...] eGFR AMER. (test code 62 ML/MIN/1.73 = 03102) eGFR NON- AMER. (test 53 ML/MIN/1.73 code = 15588) CALC BUN/CREAT (test code = 27 RATIO [...] eGFR AMER. (test code 62 ML/MIN/1.73 = 98395) eGFR NON- AMER. (test 53 ML/MIN/1.73 code = 28296) CALC BUN/CREAT (test code = 27 RATIO [...] eGFR AMER. (test code 62 ML/MIN/1.73 = 41256) eGFR NON- AMER. (test 53 ML/MIN/1.73 code = 67389) CALC BUN/CREAT (test code = 27 RATIO [...] eGFR AMER. (test code 62 ML/MIN/1.73 = 37374) eGFR NON- AMER. (test 53 ML/MIN/1.73 code = 73282) CALC BUN/CREAT (test code = 27 RATIO [...] BILIRUBIN, TOTAL (test code = <0.2 MG/DL 220) ALKALINE PHOSPHATASE (test 122 U/L [...] eGFR AMER. (test code 62 ML/MIN/1.73 = 72119) eGFR NON- AMER. (test 53 ML/MIN/1.73 code = 77756) CALC BUN/CREAT (test code = 27 RATIO [...] Comments HYDROXYALPRAZOLAM INTERP (test code Positive = 17411) HYDROXYALPRAZOLAM QNT (test code = 883 ng/mL 169081) LORAZEPAM INTERP (test code = Negative 95472) LORAZEPAM QNT (test code = 50059) <50 ng/mL OXAZEPAM INTERP (test code = 85454) Negative OXAZEPAM QNT (test code = 67659) <50 ng/mL TEMAZEPAM INTERP (test code = Negative 993428) TEMAZEPAM QNT (test code = 189479) <50 ng/mL NORDIAZEPAM INTERP (test code = Negative 53121) NORDIAZEPAM QNT (test code = 70807) <50 ng/mL YO-TYZSS-MUPUCCXIVH INTERP (test Negative code = 077440) OY-WTBUV-HJCMOKENBQ QNT (test code <50 ng/mL = 243743) 7-AMINOCLONAZEPAM INTERP (test code Negative = 933151) 7-AMINOCLONAZEPAM QNT (test code = <50 ng/mL 732952) 7-AMINOFLUNITRAZEPAM INTERP (test Negative code = 559261) 7-AMINOFLUNITRAZEPAM QNT (test code <50 ng/mL = 681795) HYDROXYTRIAZOLAM INTERP (test code Negative = 557885) HYDROXYTRIAZOLAM QNT (test code = <50 ng/mL 153656) BENZODIAZEPINE, QUANT, URINE [REFLEX]2019-05-26 00:00:00 Test Item Value Reference Range Interpretation Comments HYDROXYALPRAZOLAM INTERP (test code Positive = 02169) HYDROXYALPRAZOLAM QNT (test code = 883 ng/mL 267296) LORAZEPAM INTERP (test code = Negative 70813) LORAZEPAM QNT (test code = 88961) <50 ng/mL OXAZEPAM INTERP (test code = 18524) Negative OXAZEPAM QNT (test code = 32887) <50 ng/mL TEMAZEPAM INTERP (test code = Negative 637005) TEMAZEPAM QNT (test code = 085373) <50 ng/mL NORDIAZEPAM INTERP (test code = Negative 51349) NORDIAZEPAM QNT (test code = 44365) <50 ng/mL UC-YMLUG-LTNUYTIXDZ INTERP (test Negative code = 938862) JT-NXHMD-MVSULSBZSX QNT (test code <50 ng/mL = 109442) 7-AMINOCLONAZEPAM INTERP (test code Negative = 449213) 7-AMINOCLONAZEPAM QNT (test code = <50 ng/mL 517401) 7-AMINOFLUNITRAZEPAM INTERP (test Negative code = 418716) 7-AMINOFLUNITRAZEPAM QNT (test code <50 ng/mL = 554743) HYDROXYTRIAZOLAM INTERP (test code Negative = 678427) HYDROXYTRIAZOLAM QNT (test code = <50 ng/mL 204130) BUPRENORPHINE, QUANT, URINE [REFLEX]2019-05-26 00:00:00 Test Item Value Reference Range Interpretation Comments BUPRENORPHINE INTERP (test code = Positive 33367) BUPRENORPHINE QNT (test code = 65 ng/mL 87209) BENZODIAZEPINE, QUANT, URINE [REFLEX]2019-05-26 00:00:00 Test Item Value Reference Range Interpretation Comments HYDROXYALPRAZOLAM INTERP (test code Positive = 95146) HYDROXYALPRAZOLAM QNT (test code = 883 ng/mL 538462) LORAZEPAM INTERP (test code = Negative 49966) LORAZEPAM QNT (test code = 09055) <50 ng/mL OXAZEPAM INTERP (test code = 94567) Negative OXAZEPAM QNT (test code = 99563) <50 ng/mL TEMAZEPAM INTERP (test code = Negative 921463) TEMAZEPAM QNT (test code = 683604) <50 ng/mL NORDIAZEPAM INTERP (test code = Negative 56747) NORDIAZEPAM QNT (test code = 04684) <50 ng/mL DY-YARXK-GEEGGKMEDY INTERP (test Negative code = 400320) PK-TPENM-JZMJYYAKCL QNT (test code <50 ng/mL = 387139) 7-AMINOCLONAZEPAM INTERP (test code Negative = 177657) 7-AMINOCLONAZEPAM QNT (test code = <50 ng/mL 915626) 7-AMINOFLUNITRAZEPAM INTERP (test Negative code = 887295) 7-AMINOFLUNITRAZEPAM QNT (test code <50 ng/mL = 687871) HYDROXYTRIAZOLAM INTERP (test code Negative = 706110) HYDROXYTRIAZOLAM QNT (test code = <50 ng/mL 772684) BENZODIAZEPINE, QUANT, URINE [REFLEX]2019-05-26 00:00:00 Test Item Value Reference Range Interpretation Comments HYDROXYALPRAZOLAM INTERP (test code Positive = 97819) HYDROXYALPRAZOLAM QNT (test code = 883 ng/mL 220505) LORAZEPAM INTERP (test code = Negative 47662) LORAZEPAM QNT (test code = 74888) <50 ng/mL OXAZEPAM INTERP (test code = 50003) Negative OXAZEPAM QNT (test code = 32407) <50 ng/mL TEMAZEPAM INTERP (test code = Negative 249932) TEMAZEPAM QNT (test code = 290226) <50 ng/mL NORDIAZEPAM INTERP (test code = Negative 85980) NORDIAZEPAM QNT (test code = 17467) <50 ng/mL FY-EDLDK-KRLCMHQKJR INTERP (test Negative code = 908870) RP-UHDAV-KTDMPZKYJO QNT (test code <50 ng/mL = 791474) 7-AMINOCLONAZEPAM INTERP (test code Negative = 766008) 7-AMINOCLONAZEPAM QNT (test code = <50 ng/mL 234639) 7-AMINOFLUNITRAZEPAM INTERP (test Negative code = 326036) 7-AMINOFLUNITRAZEPAM QNT (test code <50 ng/mL = 394046) HYDROXYTRIAZOLAM INTERP (test code Negative = 014579) HYDROXYTRIAZOLAM QNT (test code = <50 ng/mL 744256) BUPRENORPHINE, QUANT, URINE [REFLEX]2019-05-26 00:00:00 Test Item Value Reference Range Interpretation Comments BUPRENORPHINE INTERP (test code = Positive 30118) BUPRENORPHINE QNT (test code = 65 ng/mL 16523) BENZODIAZEPINE, QUANT, URINE [REFLEX]2019-05-26 00:00:00 Test Item Value Reference Range Interpretation Comments HYDROXYALPRAZOLAM INTERP (test code Positive = 58108) HYDROXYALPRAZOLAM QNT (test code = 883 ng/mL 523322) LORAZEPAM INTERP (test code = Negative 09510) LORAZEPAM QNT (test code = 62361) <50 ng/mL OXAZEPAM INTERP (test code = 27511) Negative OXAZEPAM QNT (test code = 38111) <50 ng/mL TEMAZEPAM INTERP (test code = Negative 210283) TEMAZEPAM QNT (test code = 199391) <50 ng/mL NORDIAZEPAM INTERP (test code = Negative 96332) NORDIAZEPAM QNT (test code = 93156) <50 ng/mL JN-JTSKL-OGLLEOQMAN INTERP (test Negative code = 442589) BH-NEADO-VLQUIYFPPA QNT (test code <50 ng/mL = 749449) 7-AMINOCLONAZEPAM INTERP (test code Negative = 360901) 7-AMINOCLONAZEPAM QNT (test code = <50 ng/mL 925522) 7-AMINOFLUNITRAZEPAM INTERP (test Negative code = 482042) 7-AMINOFLUNITRAZEPAM QNT (test code <50 ng/mL = 885328) HYDROXYTRIAZOLAM INTERP (test code Negative = 533876) HYDROXYTRIAZOLAM QNT (test code = <50 ng/mL 872042) BENZODIAZEPINE, QUANT, URINE [REFLEX]2019-05-26 00:00:00 Test Item Value Reference Range Interpretation Comments HYDROXYALPRAZOLAM INTERP (test code Positive = 66507) HYDROXYALPRAZOLAM QNT (test code = 883 ng/mL 721743) LORAZEPAM INTERP (test code = Negative 89315) LORAZEPAM QNT (test code = 27569) <50 ng/mL OXAZEPAM INTERP (test code = 44679) Negative OXAZEPAM QNT (test code = 19845) <50 ng/mL TEMAZEPAM INTERP (test code = Negative 048976) TEMAZEPAM QNT (test code = 345035) <50 ng/mL NORDIAZEPAM INTERP (test code = Negative 24994) NORDIAZEPAM QNT (test code = 99735) <50 ng/mL FM-MPWHT-ZJWWOAYKQO INTERP (test Negative code = 654507) LA-ZUSBC-VFYQMAOGLJ QNT (test code <50 ng/mL = 383750) 7-AMINOCLONAZEPAM INTERP (test code Negative = 336422) 7-AMINOCLONAZEPAM QNT (test code = <50 ng/mL 491236) 7-AMINOFLUNITRAZEPAM INTERP (test Negative code = 491370) 7-AMINOFLUNITRAZEPAM QNT (test code <50 ng/mL = 082969) HYDROXYTRIAZOLAM INTERP (test code Negative = 037927) HYDROXYTRIAZOLAM QNT (test code = <50 ng/mL 639602) BUPRENORPHINE, QUANT, URINE [REFLEX]2019-05-26 00:00:00 Test Item Value Reference Range Interpretation Comments BUPRENORPHINE INTERP (test code = Positive 44124) BUPRENORPHINE QNT (test code = 65 ng/mL 47838) CBC W/AUTO [id number] 00:00:00 Test Item Value Reference Range Interpretation [...] code = 1015) 320 K/UL CBC W/AUTO [id number] 00:00:00 Test Item Value Reference Range Interpretation [...] code = 1015) 320 K/UL CBC W/AUTO [id number] 00:00:00 Test Item Value Reference Range Interpretation [...] code = 1015) 320 K/UL COMPREHENSIVE METABOLIC [id number] 00:00:00 Test Item Value Reference Range Interpretation Comments GLUCOSE (test code = 2217) 121 MG/DL BUN (test code = 2208) 25 MG/DL CREATININE (test code = 2214) 1.01 MG/DL eGFR AMER. (test code 75 ML/MIN/1.73 = 02142) eGFR NON- AMER. (test 64 ML/MIN/1.73 code = 45938) CALC BUN/CREAT (test code = 25 RATIO [...] code = 2219) 11 U/L COMPREHENSIVE METABOLIC [id number] 00:00:00 Test Item Value Reference Range Interpretation Comments GLUCOSE (test code = 2217) 121 MG/DL BUN (test code = 2208) 25 MG/DL CREATININE (test code = 2214) 1.01 MG/DL eGFR AMER. (test code 75 ML/MIN/1.73 = 79172) eGFR NON- AMER. (test 64 ML/MIN/1.73 code = 45629) CALC BUN/CREAT (test code = 25 RATIO [...] CORE TOTAL AB (test code = REACTIVE 2728) HEPATITIS B SURFACE AB (test NON-REACTIVE code = 2737) HEPATITIS C ANTIBODY (test code NON-REACTIVE = 4675) INTERPRETATION HEPATITIS A: (NOTE) (test code = 2552) INTERPRETATION HEPATITIS B: (NOTE) (test code = 86484) INTERPRETATION HEPATITIS C: (NOTE) (test code = 12748) HEPATITIS PROFILE (A,B,C)2019-05-25 00:00:00 Test Item Value [...] INTERPRETATION HEPATITIS B: (NOTE) (test code = 31517) INTERPRETATION HEPATITIS C: (NOTE) (test code = 19901) HIV AB/AG COMBO RFLX [id number] 00:00:00 Test Item Value Reference Range Interpretation Comments HIV 1/2 4TH GEN, RFLX CONF (test NON-REACTIVE code = 3514) HIV AB/AG COMBO RFLX [id number] 00:00:00 Test Item Value Reference Range Interpretation Comments HIV 1/2 4TH GEN, RFLX CONF (test NON-REACTIVE code = 3514) DRUG ABUSE PANEL 10 WITH [id number] 00:00:00 Test Item Value Reference Range Interpretation Comments AMPHETAMINES (test code = NEGATIVE 3201) BARBITURATES (test code = NEGATIVE 3202) BENZODIAZEPINES (test code SEE REFLEX TESTING = 3203) CANNABINOIDS (test code = NEGATIVE 3204) COCAINE METABOLITE (test NEGATIVE code = 3205) OPIATES (test code = 3209) NEGATIVE OXYCODONE (test code = NEGATIVE 10820) PHENCYCLIDINE (test code = NEGATIVE 3210) METHADONE (test code = NEGATIVE 3207) BUPRENORPHINE (test code = SEE REFLEX TESTING 25345) DRUG ABUSE PANEL 10 WITH [id number] 00:00:00 Test Item Value Reference Range Interpretation Comments AMPHETAMINES (test code = NEGATIVE 3201) BARBITURATES (test code = NEGATIVE 3202) BENZODIAZEPINES (test code SEE REFLEX TESTING = 3203) CANNABINOIDS (test code = NEGATIVE 3204) COCAINE METABOLITE (test NEGATIVE code = 3205) OPIATES (test code = 3209) NEGATIVE OXYCODONE (test code = NEGATIVE 68757) PHENCYCLIDINE (test code = NEGATIVE 3210) METHADONE (test code = NEGATIVE 3207) BUPRENORPHINE (test code = SEE REFLEX TESTING 47003) CBC W/AUTO [id number] 00:00:00 Test Item Value Reference Range Interpretation [...] code = 1015) 320 K/UL CBC W/AUTO [id number] 00:00:00 Test Item Value Reference Range Interpretation [...] code = 1015) 320 K/UL CBC W/AUTO [id number] 00:00:00 Test Item Value Reference Range Interpretation [...] code = 1015) 320 K/UL COMPREHENSIVE METABOLIC [id number] 00:00:00 Test Item Value Reference Range Interpretation Comments GLUCOSE (test code = 2217) 121 MG/DL BUN (test code = 2208) 25 MG/DL CREATININE (test code = 2214) 1.01 MG/DL eGFR AMER. (test code 75 ML/MIN/1.73 = 38217) eGFR NON- AMER. (test 64 ML/MIN/1.73 code = 52083) CALC BUN/CREAT (test code = 25 RATIO [...] code = 2219) 11 U/L COMPREHENSIVE METABOLIC [id number] 00:00:00 Test Item Value Reference Range Interpretation Comments GLUCOSE (test code = 2217) 121 MG/DL BUN (test code = 2208) 25 MG/DL CREATININE (test code = 2214) 1.01 MG/DL eGFR AMER. (test code 75 ML/MIN/1.73 = 54733) eGFR NON- AMER. (test 64 ML/MIN/1.73 code = 65916) CALC BUN/CREAT (test code = 25 RATIO [...] CALC GLOBULIN (test code = 2.8 G/DL 224) CALC A/G RATIO (test code = 1.5 [...] INTERPRETATION HEPATITIS B: (NOTE) (test code = 60951) INTERPRETATION HEPATITIS C: (NOTE) (test code = 68368) HEPATITIS PROFILE (A,B,C)2019-05-25 00:00:00 Test Item Value [...] INTERPRETATION HEPATITIS B: (NOTE) (test code = 77333) INTERPRETATION HEPATITIS C: (NOTE) (test code = 50135) HIV AB/AG COMBO RFLX [id number] 00:00:00 Test Item Value Reference Range Interpretation Comments HIV 1/2 4TH GEN, RFLX CONF (test NON-REACTIVE code = 3514) HIV AB/AG COMBO RFLX [id number] 00:00:00 Test Item Value Reference Range Interpretation Comments HIV 1/2 4TH GEN, RFLX CONF (test NON-REACTIVE code = 3514) DRUG ABUSE PANEL 10 WITH [id number] 00:00:00 Test Item Value Reference Range Interpretation Comments AMPHETAMINES (test code = NEGATIVE 3201) BARBITURATES (test code = NEGATIVE 3202) BENZODIAZEPINES (test code SEE REFLEX TESTING = 3203) CANNABINOIDS (test code = NEGATIVE 3204) COCAINE METABOLITE (test NEGATIVE code = 3205) OPIATES (test code = 3209) NEGATIVE OXYCODONE (test code = NEGATIVE 55042) PHENCYCLIDINE (test code = NEGATIVE 3210) METHADONE (test code = NEGATIVE 3207) BUPRENORPHINE (test code = SEE REFLEX TESTING 39447) DRUG ABUSE PANEL 10 WITH [id number] 00:00:00 Test Item Value Reference Range Interpretation Comments AMPHETAMINES (test code = NEGATIVE 3201) BARBITURATES (test code = NEGATIVE 3202) BENZODIAZEPINES (test code SEE REFLEX TESTING = 3203) CANNABINOIDS (test code = NEGATIVE 3204) COCAINE METABOLITE (test NEGATIVE code = 3205) OPIATES (test code = 3209) NEGATIVE OXYCODONE (test code = NEGATIVE 85114) PHENCYCLIDINE (test code = NEGATIVE 3210) METHADONE (test code = NEGATIVE 3207) BUPRENORPHINE (test code = SEE REFLEX TESTING 09175) CBC W/AUTO [id number] 00:00:00 Test Item Value Reference Range Interpretation [...] code = 1015) 320 K/UL CBC W/AUTO [id number] 00:00:00 Test Item Value Reference Range Interpretation [...] code = 1015) 320 K/UL CBC W/AUTO [id number] 00:00:00 Test Item Value Reference Range Interpretation [...] code = 1015) 320 K/UL COMPREHENSIVE METABOLIC [id number] 00:00:00 Test Item Value Reference Range Interpretation Comments GLUCOSE (test code = 2217) 121 MG/DL BUN (test code = 2208) 25 MG/DL CREATININE (test code = 2214) 1.01 MG/DL eGFR AMER. (test code 75 ML/MIN/1.73 = 46833) eGFR NON- AMER. (test 64 ML/MIN/1.73 code = 25207) CALC BUN/CREAT (test code = 25 RATIO [...] code = 2219) 11 U/L COMPREHENSIVE METABOLIC [id number] 00:00:00 Test Item Value Reference Range Interpretation Comments GLUCOSE (test code = 2217) 121 MG/DL BUN (test code = 2208) 25 MG/DL CREATININE (test code = 2214) 1.01 MG/DL eGFR AMER. (test code 75 ML/MIN/1.73 = 88291) eGFR NON- AMER. (test 64 ML/MIN/1.73 code = 52372) CALC BUN/CREAT (test code = 25 RATIO [...] INTERPRETATION HEPATITIS B: (NOTE) (test code = 59659) INTERPRETATION HEPATITIS C: (NOTE) (test code = 74580) HEPATITIS PROFILE (A,B,C)2019-05-25 00:00:00 Test Item Value [...] INTERPRETATION HEPATITIS B: (NOTE) (test code = 86092) INTERPRETATION HEPATITIS C: (NOTE) (test code = 00993) HIV AB/AG COMBO RFLX [id number] 00:00:00 Test Item Value Reference Range Interpretation Comments HIV 1/2 4TH GEN, RFLX CONF (test NON-REACTIVE code = 3514) HIV AB/AG COMBO RFLX [id number] 00:00:00 Test Item Value Reference Range Interpretation Comments HIV 1/2 4TH GEN, RFLX CONF (test NON-REACTIVE code = 3514) DRUG ABUSE PANEL 10 WITH [id number] 00:00:00 Test Item Value Reference Range Interpretation Comments AMPHETAMINES (test code = NEGATIVE 3201) BARBITURATES (test code = NEGATIVE 3202) BENZODIAZEPINES (test code SEE REFLEX TESTING = 3203) CANNABINOIDS (test code = NEGATIVE 3204) COCAINE METABOLITE (test NEGATIVE code = 3205) OPIATES (test code = 3209) NEGATIVE OXYCODONE (test code = NEGATIVE 41248) PHENCYCLIDINE (test code = NEGATIVE 3210) METHADONE (test code = NEGATIVE 3207) BUPRENORPHINE (test code = SEE REFLEX TESTING 07847) DRUG ABUSE PANEL 10 WITH [id number] 00:00:00 Test Item Value Reference Range Interpretation Comments AMPHETAMINES (test code = NEGATIVE 3201) BARBITURATES (test code = NEGATIVE 3202) BENZODIAZEPINES (test code SEE REFLEX TESTING = 3203) CANNABINOIDS (test code = NEGATIVE 3204) COCAINE METABOLITE (test NEGATIVE code = 3205) OPIATES (test code = 3209) NEGATIVE OXYCODONE (test code = NEGATIVE 40705) PHENCYCLIDINE (test code = NEGATIVE 3210) METHADONE (test code = NEGATIVE 3207) BUPRENORPHINE (test code = SEE REFLEX TESTING 38275)
[2022-10-31 12:11] LABS: Absolute Lymphocytes (CBC) 2.4 K/uL (0.7-4.9); Hematocrit 35.4 % (36.0-45.0); Lymphocytes % 32.2 % (15.3-44.8); MCV 85.3 fL (80-100); MPV 6.8 fL (7.6-11.3); Platelets 191 thou/uL (152-406); RBC Red Blood Cell Count 4.15 M/uL (3.86-4.86)
[2022-10-31 12:14] LABS: Specific Gravity 1.029 (1.005-1.030); Urine Bacteria >50 /HPF (<20); Urine Bilirubin NEGATIVE (Negative); Urine Blood Negative (Negative); Urine Clarity Extremely Turbid (Clear); Urine Color Yellow (Yellow); Urine Glucose NEGATIVE (Negative); Urine Mucus 1+ /HPF (None Seen); Urine Protein 1+ (Negative); Urine Urobilinogen Normal (Normal)
[2022-10-31 12:17] LABS: Protime INR 0.98
[2022-10-31] MEDS ORDERED: ONDANSETRON 4 MG/2 ML VIAL ONE (12:17)
[2022-10-31] MEDS ORDERED: MECLIZINE HCL 12.5 MG TAB ONE (12:17)
[2022-10-31] MEDS ORDERED: NA CHLORIDE 0.9% 1,000 ML ONE (12:17)
[2022-10-31 12:30] LABS: Albumin 2.6 g/dL (3.4-5.0); Alkaline Phosphatase 83 U/L (45-117); BUN Blood Urea Nitrogen 14 mg/dL (7-18); Bicarbonate 27 mEq/L (21-32); Bilirubin Total 0.2 mg/dL (0.2-1.0); Glomerular Filtration Rate 78 ml/min (=/>90); Glucose Level 105 mg/dL (74-106); Lipase 9 U/L (13-75); Magnesium 1.6 mg/dL (1.6-2.4); NT PRO-BNP 1204 pg/mL (<125); Potassium 3.3 mEq/L (3.5-5.1); Protein, Total 6.3 g/dL (6.4-8.2); Sodium Level 142 mEq/L (136-145); Troponin High Sensitivity 8.7 pg/mL (<58.9)
[2022-10-31 12:31] LABS: ALT/SGPT < 10 U/L (13-56); AST/SGOT < 3 U/L (15-37); Bilirubin Direct < 0.1 mg/dL (0-0.2); Bilirubin Indirect, Calculated ND mg/dL (0.2-0.8)
--- NOTE | 2022-10-31 12:53 | RAD REPORT ---
EXAM DESCRIPTION: RAD - Chest Single View - 10/31/2022 12:44 pm CLINICAL HISTORY: COUGH COMPARISON: Chest Single View dated 11/28/2021; Chest Single View dated 10/26/2021; Chest Single View dated 10/05/2019; Chest Single View dated 07/04/2019 FINDINGS: Lines: None. Lungs: No evidence of edema or pneumonia. Pleural: No significant pleural effusions or pneumothorax. Cardiac: The heart size is within normal limits. Mediastinum: Within normal limits. Bones: No acute fractures. Other: None IMPRESSION: No acute cardiopulmonary disease.
--- NOTE | 2022-10-31 12:54 | RAD REPORT ---
EXAM DESCRIPTION: RAD - Wrist Left 3 View - 10/31/2022 12:44 pm CLINICAL HISTORY: PAIN COMPARISON: No comparisons FINDINGS/IMPRESSION: Three views of the left wrist. No acute fracture. No malalignment. No significa nt focal degenerative changes.
--- NOTE | 2022-10-31 14:39 | ER ---
Nurse's Notes [facility] Name: Tabatha Chambers Age: 56 yrs Sex: Female : 1965 Arrival Date: 10/31/2022 Time: 10:53 Bed 20 Private MD: Diagnosis: Bipolar disorder, unspecified;UTI/ Urinary tract infection, site not specified;Hypokalemia;Obesity, unspecified;Contusion of left forearm;Nausea Presentation: 10/31 11:05 Chief complaint: Patient states: nausea and dizziness started this morning after taking eh3 daily prescribed medications. Pt states she fell onto her knees and c/o pain in left wrist. Coronavirus screen: Vaccine status: Patient reports being unvaccinated. Ebola Screen: No symptoms or risks identified at this time. Initial Sepsis Screen: Does the patient meet any 2 criteria? No. Patient's initial sepsis screen is negative. Does the patient have a suspected source of infection? No. Patient's initial sepsis screen is negative. Risk Assessment: Do you want to hurt yourself or someone else? Patient reports no desire to harm self or others. Onset of symptoms was October 31, 2022. 11:05 Method Of Arrival: EMS: [facility] 11:05 Acuity: VERO 3 eh3 11:06 Chief complaint: EMS states: Nausea and dizziness that started this morning, VSS. ph Coronavirus screen: Vaccine status: Patient reports receiving the 2nd dose of the covid vaccine. Ebola Screen: No symptoms or risks identified at this time. Risk Assessment: Do you want to hurt yourself or someone else? Patient reports no desire to harm self or others. Onset of symptoms was October 31, 2022. 11:06 Method Of Arrival: EMS: [facility] [place] ph 11:06 Acuity: VERO 3 ph Triage Assessment: 11:05 General: Appears in no apparent distress. uncomfortable, Behavior is calm, cooperative, eh3 appropriate for age. Pain: Complains of pain in left wrist. Neuro: Level of Consciousness is awake, alert, obeys commands, Oriented to person, place, time, situation. Neuro: Reports dizziness. Cardiovascular: Capillary refill < 3 seconds Patient's skin is warm and dry. Respiratory: Airway is patent Respiratory effort is even, unlabored, Respiratory pattern is regular, symmetrical. GI: Abdomen is round non-distended, Reports nausea. : Urine is cloudy. Derm: Skin is healthy with good turgor, Skin is pink, warm \T\ dry. Musculoskeletal: Circulation, motion, and sensation intact. Range of motion: intact in all extremities. 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 - Social history:: Smoking status: Patient denies any tobacco usage or history of. Patient/guardian denies using alcohol, street drugs. Screenin:15 [facility] ED Fall Risk Assessment (Adult) Score/Fall Risk Level 3 or more points = High eh3 Risk Oriented to surroundings, Maintained a safe environment, Educated pt \T\ family on fall prevention, incl call for assistance when getting out of bed, Assessed \T\ reinforced patient's understanding of fall precautions, Provided non-skid footwear, Hourly rounding (assess needs \T\ fall precautionary measures) done, Used ambulatory aids as needed (educated on \T\ assisted with). Abuse screen: Denies threats or abuse. Denies injuries from another. Nutritional screening: No deficits noted. Tuberculosis screening: No symptoms or risk factors identified. Assessment: 11:15 Reassessment: No changes from previously documented assessment. See triage assessment. eh3 11:15 GI: Abdomen is round non-distended. eh3 12:00 Reassessment: Patient appears in no apparent distress at this time. Patient and/or eh3 family updated on plan of care and expected duration. Pain level reassessed. Patient is alert, oriented x 3, equal unlabored respirations, skin warm/dry/pink. 13:00 Reassessment: Patient appears in no apparent distress at this time. Patient and/or eh3 family updated on plan of care and expected duration. Pain level reassessed. Patient is alert, oriented x 3, equal unlabored respirations, skin warm/dry/pink. 14:00 Reassessment: Patient appears in no apparent distress at this time. Patient and/or 3 family updated on plan of care and expected duration. Pain level reassessed. Patient is alert, oriented x 3, equal unlabored respirations, skin warm/dry/pink. 14:40 Reassessment: Pt discharge pending completion of Magnesium infusion, 100 mL remains to 3 be infused. 15:00 Reassessment: Patient appears in no apparent distress at this time. Patient and/or 3 family updated on plan of care and expected duration. Pain level reassessed. Patient is alert, oriented x 3, equal unlabored respirations, skin warm/dry/pink. Vital Signs: 11:05 BP 121 / 84; Pulse 66; Resp 18; Temp 97.1(O); Pulse Ox 95% on R/A; Weight 113.4 kg; 3 Height 5 ft. 4 in. ; 12:00 BP 117 / 75; Pulse 68; Resp 18; Pulse Ox 96% on R/A; 3 13:00 BP 124 / 82; Pulse 61; Resp 16; Pulse Ox 96% on R/A; 3 14:00 BP 122 / 68; Pulse 64; Resp 18; Pulse Ox 97% on R/A; eh3 15:00 BP 124 / 72; Pulse 62; Resp 17; Pulse Ox 97% on R/A; 3 11:05 Body Mass Index 42.91 (113.40 kg, 162.56 cm) [facility] ED Course: 10:57 Patient arrived in ED. ph 11:00 Christophe Mayer MD is Attending Physician. [facility] 11:05 Beatrice Grijalva, RN is Primary Nurse. [facility] 11:07 Triage completed. ph 11:08 Arm band placed on Patient placed in an exam room. ph 11:15 Patient has correct armband on for positive identification. Bed in low position. Call [facility] light in reach. Side rails up X2. Provided Education on: Use of call triplett. Client placed on continuous cardiac and pulse oximetry monitoring. NIBP monitoring applied. 12:46 XRAY Chest (1 view) In Process Unspecified. EDMS 12:46 Wrist Left (3 View) XRAY In Process Unspecified. EDMS 16:00 Diet: Patient given snack. Patient given juice. Tolerated well. eh3 16:18 No provider procedures requiring assistance completed. IV discontinued, intact, eh3 bleeding controlled, No redness/swelling at site. Pressure dressing applied. Administered Medications: 12:45 Drug: NS 0.9% IV 1000 ml Route: IV; Rate: 1 bolus; Site: left antecubital; 3 16:17 Follow up: IV Status: Completed infusion; IV Intake: 700ml 3 12:45 Drug: Ondansetron IVP 4 mg Route: IVP; Site: left antecubital; eh3 14:00 Follow up: Response: No adverse reaction eh3 12:45 Drug: Meclizine PO 50 mg Route: PO; eh3 14:00 Follow up: Response: No adverse reaction eh3 15:06 Drug: Ciprofloxacin PO 500 mg Route: PO; eh3 16:00 Follow up: Response: No adverse reaction eh3 15:06 Drug: Potassium PO Effervescent Tablet 50 mEq Route: PO; eh3 16:00 Follow up: Response: No adverse reaction eh3 15:06 Drug: Magnesium Sulfate IVPB 1 grams Route: IVPB; Infused Over: 1 hrs; Site: left [facility] antecubital; 16:17 Follow up: Response: No adverse reaction; IV Status: Completed infusion; IV Intake: eh3 100ml 15:07 Drug: Rocephin IV 1 grams Route: IV; Rate: per protocol; Site: left antecubital; 3 16:17 Follow up: Response: No adverse reaction; IV Status: Completed infusion; IV Intake: [id number] Medication: 16:18 VIS not applicable for this client. eh3 Intake: 16:17 IV: 100ml; Total: 100ml. eh3 16:17 IV: 700ml; Total: 800ml. eh3 16:17 IV: 50ml; Total: 850ml. eh3 Outcome: 14:38 Discharge ordered by . edwardo 16:18 Patient left the ED. 3 16:18 Discharged to home ambulatory. eh3 16:18 Condition: stable 16:18 Discharge instructions given to patient, Instructed on discharge instructions, follow up and referral plans. medication usage, Demonstrated understanding of instructions, follow-up care, medications, Prescriptions given X 2. Signatures: Dispatcher [employer] [facility] Christophe Mayer MD MD cha Hall, Patricia, RN RN ph Beatrice Grijalva, RN RN eh3
--- NOTE | 2022-10-31 14:39 | EDPHYS ---
Physician Documentation [facility] Name: Tabatha Chambers Age: 56 yrs Sex: Female : 1965 Arrival Date: 10/31/2022 Time: 10:53 Bed 20 Private MD: ED Physician Christophe Mayer HPI: 10/31 14:32 This 56 yrs old Female presents to ER via EMS with complaints of Nausea. [facility] 14:32 The patient presents to the emergency department with nausea, vomiting. 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 - Social history:: Smoking status: Patient denies any tobacco usage or history of. Patient/guardian denies using alcohol, street drugs. ROS: 14:33 Constitutional: Negative for fever, chills, and weight loss, Eyes: Negative for injury, edwardo pain, redness, and discharge, ENT: Negative for injury, pain, and discharge, Neck: Negative for injury, pain, and swelling, Cardiovascular: Negative for chest pain, palpitations, and edema, Respiratory: Negative for shortness of breath, cough, wheezing, and pleuritic chest pain, Back: Negative for injury and pain, : Negative for injury, bleeding, discharge, and swelling, Skin: Negative for injury, rash, and discoloration, Neuro: Negative for headache, weakness, numbness, tingling, and seizure, Psych: Negative for depression, anxiety, suicide ideation, homicidal ideation, and hallucinations, Allergy/Immunology: Negative for hives, rash, and allergies, Endocrine: Negative for neck swelling, polydipsia, polyuria, polyphagia, and marked weight changes, Hematologic/Lymphatic: Negative for swollen nodes, abnormal bleeding, and unusual bruising. 14:33 Abdomen/GI: Positive for nausea and vomiting. 14:33 MS/extremity: Positive for pain, tenderness, of the left arm. Exam: 14:33 Constitutional: This is a well developed, well nourished patient who is awake, alert, edwardo and in no acute distress. Head/Face: Normocephalic, atraumatic. Eyes: Pupils equal round and reactive to light, extra-ocular motions intact. Lids and lashes normal. Conjunctiva and sclera are non-icteric and not injected. Cornea within normal limits. Periorbital areas with no swelling, redness, or edema. ENT: Nares patent. No nasal discharge, no septal abnormalities noted. Tympanic membranes are normal and external auditory canals are clear. Oropharynx with no redness, swelling, or masses, exudates, or evidence of obstruction, uvula midline. Mucous membranes moist. Neck: Trachea midline, no thyromegaly or masses palpated, and no cervical lymphadenopathy. Supple, full range of motion without nuchal rigidity, or vertebral point tenderness. No Meningismus. Chest/axilla: Normal chest wall appearance and motion. Nontender with no deformity. No lesions are appreciated. Cardiovascular: Regular rate and rhythm with a normal S1 and S2. No gallops, murmurs, or rubs. Normal PMI, no JVD. No pulse deficits. Respiratory: Lungs have equal breath sounds bilaterally, clear to auscultation and percussion. No rales, rhonchi or wheezes noted. No increased work of breathing, no retractions or nasal flaring. Abdomen/GI: Soft, non-tender, with normal bowel sounds. No distension or tympany. No guarding or rebound. No evidence of tenderness throughout. Back: No spinal tenderness. No costovertebral tenderness. Full range of motion. Skin: Warm, dry with normal turgor. Normal color with no rashes, no lesions, and no evidence of cellulitis. MS/ Extremity: Pulses equal, no cyanosis. Neurovascular intact. Full, normal range of motion. Neuro: Awake and alert, GCS 15, oriented to person, place, time, and situation. Cranial nerves II-XII grossly intact. Motor strength 5/5 in all extremities. Sensory grossly intact. Cerebellar exam normal. Normal gait. Psych: Awake, alert, with orientation to person, place and time. Behavior, mood, and affect are within normal limits. 14:33 ECG was reviewed by the Attending Physician. Vital Signs: 11:05 BP 121 / 84; Pulse 66; Resp 18; Temp 97.1(O); Pulse Ox 95% on R/A; Weight 113.4 kg; 3 Height 5 ft. 4 in. ; 12:00 BP 117 / 75; Pulse 68; Resp 18; Pulse Ox 96% on R/A; 3 13:00 BP 124 / 82; Pulse 61; Resp 16; Pulse Ox 96% on R/A; 3 14:00 BP 122 / 68; Pulse 64; Resp 18; Pulse Ox 97% on R/A; 3 15:00 BP 124 / 72; Pulse 62; Resp 17; Pulse Ox 97% on R/A; 3 11:05 Body Mass Index 42.91 (113.40 kg, 162.56 cm) [facility] MDM: 11:00 Patient medically screened. edwardo 14:35 Differential diagnosis: Nonspecific abd pain, diverticulitis, viral gastroenteritis, edwardo gastroenteritis. Differential Diagnosis. Data reviewed: vital signs, nurses notes, lab test result(s), EKG, radiologic studies, plain films. Consideration of Admission/Observation Escalation of care including admission/observation considered. I considered the following discharge prescriptions or medication management in the emergency department Medications were administered in the Emergency Department. See MAR. Test considered but Not performed: CT: no ct traumagram. Care significantly affected by the following chronic conditions: Hypertension, Obesity, uti, bipolar, schizo. 10/31 11:51 Order name: Basic Metabolic Panel; Complete Time: 14: [facility] 10/31 11:51 Order name: CBC with Diff; Complete Time: 14: [facility] 10/31 11:51 Order name: LFT's; Complete Time: 14: [facility] 10/31 11:51 Order name: Magnesium; Complete Time: 14: [facility] 10/31 11:51 Order name: NT PRO-BNP; Complete Time: 14: [facility] 10/31 11:51 Order name: PT-INR; Complete Time: 14: edwardo 10/31 11:51 Order name: Troponin HS; Complete Time: 14: [facility] 10/31 11:51 Order name: Lipase; Complete Time: 14: [facility] 10/31 11:51 Order name: Urinalysis w/ reflexes; Complete Time: 14: [facility] 10/31 12:17 Order name: Urine Culture EDMS 10/31 11:51 Order name: XRAY Chest (1 view); Complete Time: 14: [facility] 10/31 11:51 Order name: Wrist Left (3 View) XRAY; Complete Time: 14: [facility] 10/31 11:51 Order name: EKG; Complete Time: 11:51 [facility] 10/31 11:51 Order name: Cardiac monitoring; Complete Time: 11: [facility] 10/31 11:51 Order name: EKG - Nurse/Tech; Complete Time: 12: [facility] 10/31 11:51 Order name: IV Saline Lock; Complete Time: 11: [facility] 10/31 11:51 Order name: Labs collected and sent; Complete Time: [facility] 10/31 11:51 Order name: O2 Per Protocol; Complete Time: [facility] 10/31 11:51 Order name: O2 Sat Monitoring; Complete Time: : [facility] 10/31 16:05 Order name: PO challenge; Complete Time: 16:07 [facility] EC:33 Rate is 60 beats/min. Rhythm is regular. QRS Sawyer is Normal. QRS interval is normal. QT edwardo interval is normal. No Q waves. T waves are Normal. No ST changes noted. Clinical impression: NSR w/ Non-specific ST/T Changes and No evidence of ischemia. Interpreted by me. Reviewed by me. Administered Medications: 12:45 Drug: NS 0.9% IV 1000 ml Route: IV; Rate: 1 bolus; Site: left antecubital; 3 16:17 Follow up: IV Status: Completed infusion; IV Intake: 700ml 3 12:45 Drug: Ondansetron IVP 4 mg Route: IVP; Site: left antecubital; eh3 14:00 Follow up: Response: No adverse reaction eh3 12:45 Drug: Meclizine PO 50 mg Route: PO; eh3 14:00 Follow up: Response: No adverse reaction eh3 15:06 Drug: Ciprofloxacin PO 500 mg Route: PO; eh3 16:00 Follow up: Response: No adverse reaction eh3 15:06 Drug: Potassium PO Effervescent Tablet 50 mEq Route: PO; eh3 16:00 Follow up: Response: No adverse reaction eh3 15:06 Drug: Magnesium Sulfate IVPB 1 grams Route: IVPB; Infused Over: 1 hrs; Site: left [facility] antecubital; 16:17 Follow up: Response: No adverse reaction; IV Status: Completed infusion; IV Intake: 3 100ml 15:07 Drug: Rocephin IV 1 grams Route: IV; Rate: per protocol; Site: left antecubital; [facility] 16:17 Follow up: Response: No adverse reaction; IV Status: Completed infusion; IV Intake: [id number] Disposition Summary: 10/31/22 14:38 Discharge Ordered Location: Home [facility] Problem: new edwardo Symptoms: have improved edwardo Condition: Stable edwardo Diagnosis - Bipolar disorder, unspecified edwardo - UTI/ Urinary tract infection, site not specified edwardo - Hypokalemia edwardo - Obesity, unspecified edwardo - Contusion of left forearm edwardo - Nausea edwardo Followup: [facility] - With: Private Physician - When: 2 - 3 days - Reason: Recheck today's complaints, Continuance of care, Re-evaluation by your physician Discharge Instructions: - Discharge Summary Sheet [facility] - Potassium Content of Foods edwardo - Dysuria edwardo - Nausea and Vomiting, Adult edwardo - Nausea, Adult edwardo - Obesity, Adult edwardo - Urinary Tract Infection, Adult edwardo - Nausea and Vomiting, Adult, [id number] edwardo - Urinary Tract Infection, Adult, [id number] edwardo - Hypokalemia edwardo - Nausea, Adult, [id number] edwardo - Obesity, Adult, [id number] [facility] Forms: - Medication Reconciliation Form [facility] - Thank You Letter [facility] - Antibiotic Education [facility] - Prescription Opioid Use [facility] - Patient Portal Instructions [facility] - Leadership Thank You Letter [facility] Prescriptions: - Zofran 4 mg Oral Tablet - take 1 tablet by ORAL route every 12 hours As needed; 20 tablet; Refills: 0, [facility] Product Selection Permitted - Cipro 500 mg Oral Tablet - take 1 tablet by ORAL route every 12 hours for 7 days; 14 tablet; Refills: 0, [facility] Product Selection Permitted Signatures: Dispatcher [employer] Christophe Manriquez MD MD cha Hall, Patricia, RN RN Beatrice Grijalva RN RN eh3
[2022-10-31] MEDS ORDERED: MAGNESIUM SULFATE 1 gm IVPB 1 GM/100 ML BAG IV ONE (14:42)
[2022-10-31] MEDS ORDERED: CIPROFLOXACIN HCL 500 MG TAB ONE (14:42)
[2022-10-31] MEDS ORDERED: NA CHLORIDE 0.9% 50 ML ONE (14:42)
[2022-10-31] MEDS ORDERED: POTASSIUM 25 MEQ EFFERV TAB ONE (14:42)
[2022-10-31] MEDS ORDERED: CEFTRIAXONE 1000 MG/VIAL ONE (14:42)
[2022-10-31 16:39] VITALS: BP 121/84; TEMP 97.1; O2SAT 95
--- NOTE | 2022-11-01 15:06 | EKG ---
Test Date: 2022-10-31 Test Time: 12:52:26 Inspector Crystal: RJ MEASUREMENT RESULTS: Intervals: Rate: 60 ME: 166 QRSD: 84 QT: 426 QTc: 426 [place]: P: 39 ME: 166 QRS: 18 T: 8 INTERPRETIVE STATEMENTS: Normal sinus rhythm Nonspecific T wave abnormality Abnormal ECG Compared to ECG 11/28/2021 21:23:23 T-wave abnormality now present Electronically Signed On 11-01-22 15:05:01 CDT by [place]
== END 2022-10-31 16:18 | disposition home or self-care (01) ==
LOC: ER 10:53
DX: N39.0 Urinary tract infection, site not specified (principal); E87.6 Hypokalemia; S50.12XA Contusion of left forearm, initial encounter; F31.9 Bipolar disorder, unspecified; E66.9 Obesity, unspecified; Z68.41 Body mass index [BMI] 40.0-44.9, adult; I10 Essential (primary) hypertension
CPT/HCPCS: 96365; 96361; 93005; 87088; 85025; 81001; 87086; 80048; 36415; 83735; 85610; 80076; 84484; 83690; 83880; 71045; 73110; 96375; 99284; J8597; J3475; J2405; J7030; J0696

== ENCOUNTER 2022-12-12 14:37 | Emergency (ER) | payer OTHER ==
--- OUTSIDE RECORDS SUMMARY | 2022-12-12 14:45 | XMS REPORT | Continuity of Care Document ---
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 BARBITURATES (test Negative code = 40410) BENZODIAZEPINES Negative (test code = 89398) COCAINE METABOLITE Negative (test code = 87211) METHADONE (test Negative code = 10260) OPIATES (test code Negative = 179411) PHENCYCLIDINE (test Negative code = 485300) PROPOXYPHENE (test Negative code = 700035) THC (CANNABIS) Negative (test code = 371194) ETHANOL (test code Negative Screen D ecision Limits Drug = 542472) Analyzed Screen Units - ----- ----- Amphetamine [...] and the perform ance characteristics determined by [facility] aboratory. This confirmati on testing has not been cleare d or approvedby the FDA. The laboratory is r egulated under CLIA asqualifie d to perform high-complexity testing. This testis used for patient testing purpose s. It should not beregarded as investigational or for research. BUPRENORPHINE AND [id number] 21:38:29 Test Item Value Reference Interpretation Comments Range NORBUPRENORPHINE 1.4 ng/mL (test code = 25280) BUPRENORPHINE (test 5.8 ng/mL INTERPRE TIVE INFORMATION: code = 81810) Buprenorphine and Metabolites, Se rum or Plasma, [...] i ts performance characteristics determined by [facility]. I t has not been cleared or approved by the US Food and Drug Administration. This test was performed i n a CLIA certified labor atory and is intended for clinical purposes. TESTI NG PERFORMED AT [facility] [place] [address] [place] [address] 8 [place]. [id number] CLIA N O. [id number] DRUG SCREEN, SERUM, NO [id number] 12:06:32 Test Item Value Reference Interpretation Comments Range AMPHETAMINES (test Negative code = 74960) BARBITURATES (test Negative code = 14288) BENZODIAZEPINES Negative (test code = 79561) COCAINE METABOLITE Negative (test code = 58946) METHADONE (test Negative code = 09035) OPIATES (test code Negative = 223731) PHENCYCLIDINE (test Negative code = 618322) PROPOXYPHENE (test Negative code = 920095) THC (CANNABIS) Negative (test code = 339066) ETHANOL (test code Negative Screen D ecision Limits Drug = 140204) Analyzed Screen Units - ----- ----- Amphetamine 500 ng/mL Barbiturate 150 ng/mL Benzodiazepines 100 ng/mL Cocaine 150 ng /mL Ethanol 10 mg/dL Toxic Blo od Ethanol [...] and the perform ance characteristics determined by [facility]oratory. This confirmati on testing has not been cleare d or approvedby the FDA. The laboratory is r egulated under CLIA asqualifie d to perform high-complexity testing. This testis used for patient testing purpose s. It should not beregarded as investigational or for research. UNLES S OTHERWISE INDICATED, ALL TESTING PERFORMED [facility] [address] [place] [address] LABORATORY DIRE CTOR: MELANY ANTHONY M.D. CLIA NUMBER [id number] [facility] [place]. [id number] Complete Blood Count Auto [id number] 21:10:00 Test Item Value Reference Range Interpretation [...] code = NRBCP) 0 % Comprehensive Metabolic [id number] 21:10:00 Test Item Value Reference Range Interpretation [...] 99 U/L 46-116 N = ALP) Ethanol [id number] 21:10:00 Test Item Value Reference Range Interpretation Comments Ethanol (test code = ETOH) < 3 mg/dL Coronavirus PCR, COVID19 [id number] 21:10:00 Test Item Value Reference Range Interpretation Comments Coronavirus PCR, For use under Emergency COVID19 Rapid (test Use Authorization (EUA) code = SARSCOV2) only. Coronavirus PCR, Reference Range: COVID19 Rapid (test Negative code = HRWFTYS17.1) SARS-CoV-2 PCR Result: Negative by PCR (test code = SARS-CoV-2 PCR Result:) COVID-19 Status: AsymptomaticCBC W/AUTO [id number] 00:00:00 Test Item Value Reference Range Interpretation [...] NUCLEATED RBCS (test code = 0.00 K/UL 18162) CBC W/AUTO [id number] 00:00:00 Test Item Value Reference Range Interpretation [...] NUCLEATED RBCS (test code = 0.00 K/UL 16027) CBC W/AUTO [id number] 00:00:00 Test Item Value Reference Range Interpretation [...] NUCLEATED RBCS (test code = 0.00 K/UL 57068) LIPID [id number] 00:00:00 Test Item Value Reference Range Interpretation Comments CHOLESTEROL (test code = 2210) 189 MG/DL TRIGLYCERIDES (test code = 2232) 135 MG/DL HDL CHOLESTEROL (test code = 2220) 64 MG/DL CALC LDL CHOL (test code = 2237) 102 MG/DL RISK RATIO LDL/HDL (test code = 1.59 RATIO 2238) LIPID [id number] 00:00:00 Test Item Value Reference Range Interpretation Comments CHOLESTEROL (test code = 2210) 189 MG/DL TRIGLYCERIDES (test code = 2232) 135 MG/DL HDL CHOLESTEROL (test code = 2220) 64 MG/DL CALC LDL CHOL (test code = 2237) 102 MG/DL RISK RATIO LDL/HDL (test code = 1.59 RATIO 2238) COMPREHENSIVE METABOLIC [id number] 00:00:00 Test Item Value Reference Range Interpretation Comments GLUCOSE (test code = 2217) 121 MG/DL BUN (test code = 2208) 22 MG/DL CREATININE (test code = 2214) 1.11 MG/DL eGFR AMER. (test code 66 ML/MIN/1.73 = 47173) eGFR NON- AMER. (test 57 ML/MIN/1.73 code = 75654) CALC BUN/CREAT (test code = 20 RATIO [...] code = 2219) 11 U/L COMPREHENSIVE METABOLIC [id number] 00:00:00 Test Item Value Reference Range Interpretation Comments GLUCOSE (test code = 2217) 121 MG/DL BUN (test code = 2208) 22 MG/DL CREATININE (test code = 2214) 1.11 MG/DL eGFR AMER. (test code 66 ML/MIN/1.73 = 70294) eGFR NON- AMER. (test 57 ML/MIN/1.73 code = 64485) CALC BUN/CREAT (test code = 20 RATIO [...] IRON BINDING CAPACITY AND IRON AND % [id number] 00:00:00 Test Item Value Reference Range Interpretation Comments IRON, SERUM (test code = 2221) 42 UG/DL UNSATURATED IBC (test code = ) 246 UG/DL CALC TOTAL IBC (test code = 2076) 288 UG/DL CALC % IRON SAT (test code = 2078) 15 % IRON BINDING CAPACITY AND IRON AND % [id number] 00:00:00 Test Item Value Reference Range Interpretation Comments IRON, SERUM (test code = 2221) 42 UG/DL UNSATURATED IBC (test code = 68127) 246 UG/DL CALC TOTAL IBC (test code = 2076) 288 UG/DL CALC % IRON SAT (test code = 2078) 15 % [id number] 00:00:00 Test Item Value Reference Range Interpretation Comments FERRITIN (test code = 5) 35 NG/ML [id number] 00:00:00 Test Item Value Reference Range Interpretation Comments FERRITIN (test code = 5) 35 NG/ML [id number] 00:00:00 Test Item Value Reference Range Interpretation Comments TRANSFERRIN (test code = 6) 232 MG/DL [id number] 00:00:00 Test Item Value Reference Range Interpretation Comments TRANSFERRIN (test code = 4936) 232 MG/DL VITAMIN D, 25 [id number] 00:00:00 Test Item Value Reference Range Interpretation Comments VITAMIN D, 25 OH (test code = 4958) 15 NG/ML VITAMIN D, 25 [id number] 00:00:00 Test Item Value Reference Range Interpretation Comments VITAMIN D, 25 OH (test code = 4958) 15 NG/ML CBC W/AUTO [id number] 00:00:00 Test Item Value Reference Range Interpretation [...] NUCLEATED RBCS (test code = 0.00 K/UL 37617) CBC W/AUTO [id number] 00:00:00 Test Item Value Reference Range Interpretation [...] NUCLEATED RBCS (test code = 0.00 K/UL 64053) CBC W/AUTO [id number] 00:00:00 Test Item Value Reference Range Interpretation [...] NUCLEATED RBCS (test code = 0.00 K/UL 40785) LIPID [id number] 00:00:00 Test Item Value Reference Range Interpretation Comments CHOLESTEROL (test code = 2210) 189 MG/DL TRIGLYCERIDES (test code = 2232) 135 MG/DL HDL CHOLESTEROL (test code = 2220) 64 MG/DL CALC LDL CHOL (test code = 2237) 102 MG/DL RISK RATIO LDL/HDL (test code = 1.59 RATIO 2238) LIPID [id number] 00:00:00 Test Item Value Reference Range Interpretation Comments CHOLESTEROL (test code = 2210) 189 MG/DL TRIGLYCERIDES (test code = 2232) 135 MG/DL HDL CHOLESTEROL (test code = 2220) 64 MG/DL CALC LDL CHOL (test code = 2237) 102 MG/DL RISK RATIO LDL/HDL (test code = 1.59 RATIO 2238) COMPREHENSIVE METABOLIC [id number] 00:00:00 Test Item Value Reference Range Interpretation Comments GLUCOSE (test code = 2217) 121 MG/DL BUN (test code = 2208) 22 MG/DL CREATININE (test code = 2214) 1.11 MG/DL eGFR AMER. (test code 66 ML/MIN/1.73 = 94637) eGFR NON- AMER. (test 57 ML/MIN/1.73 code = 08767) CALC BUN/CREAT (test code = 20 RATIO [...] code = 2219) 11 U/L COMPREHENSIVE METABOLIC [id number] 00:00:00 Test Item Value Reference Range Interpretation Comments GLUCOSE (test code = 2217) 121 MG/DL BUN (test code = 2208) 22 MG/DL CREATININE (test code = 2214) 1.11 MG/DL eGFR AMER. (test code 66 ML/MIN/1.73 = 17746) eGFR NON- AMER. (test 57 ML/MIN/1.73 code = 83958) CALC BUN/CREAT (test code = 20 RATIO [...] IRON BINDING CAPACITY AND IRON AND % [id number] 00:00:00 Test Item Value Reference Range Interpretation Comments IRON, SERUM (test code = 2221) 42 UG/DL UNSATURATED IBC (test code = ) 246 UG/DL CALC TOTAL IBC (test code = 2076) 288 UG/DL CALC % IRON SAT (test code = 2078) 15 % IRON BINDING CAPACITY AND IRON AND % [id number] 00:00:00 Test Item Value Reference Range Interpretation Comments IRON, SERUM (test code = 2221) 42 UG/DL UNSATURATED IBC (test code = 44636) 246 UG/DL CALC TOTAL IBC (test code = 2076) 288 UG/DL CALC % IRON SAT (test code = 2078) 15 % [id number] 00:00:00 Test Item Value Reference Range Interpretation Comments FERRITIN (test code = 2074) 35 NG/ML [id number] 00:00:00 Test Item Value Reference Range Interpretation Comments FERRITIN (test code = 2074) 35 NG/ML [id number] 00:00:00 Test Item Value Reference Range Interpretation Comments TRANSFERRIN (test code = 4936) 232 MG/DL [id number] 00:00:00 Test Item Value Reference Range Interpretation Comments TRANSFERRIN (test code = 4936) 232 MG/DL VITAMIN D, 25 [id number] 00:00:00 Test Item Value Reference Range Interpretation Comments VITAMIN D, 25 OH (test code = 4958) 15 NG/ML VITAMIN D, 25 [id number] 00:00:00 Test Item Value Reference Range Interpretation Comments VITAMIN D, 25 OH (test code = 4958) 15 NG/ML CBC W/AUTO [id number] 00:00:00 Test Item Value Reference Range Interpretation [...] NUCLEATED RBCS (test code = 0.00 K/UL 33380) CBC W/AUTO [id number] 00:00:00 Test Item Value Reference Range Interpretation [...] NUCLEATED RBCS (test code = 0.00 K/UL 21114) CBC W/AUTO [id number] 00:00:00 Test Item Value Reference Range Interpretation [...] NUCLEATED RBCS (test code = 0.00 K/UL 57377) LIPID [id number] 00:00:00 Test Item Value Reference Range Interpretation Comments CHOLESTEROL (test code = 2210) 189 MG/DL TRIGLYCERIDES (test code = 2232) 135 MG/DL HDL CHOLESTEROL (test code = 2220) 64 MG/DL CALC LDL CHOL (test code = 2237) 102 MG/DL RISK RATIO LDL/HDL (test code = 1.59 RATIO 2238) LIPID [id number] 00:00:00 Test Item Value Reference Range Interpretation Comments CHOLESTEROL (test code = 2210) 189 MG/DL TRIGLYCERIDES (test code = 2232) 135 MG/DL HDL CHOLESTEROL (test code = 2220) 64 MG/DL CALC LDL CHOL (test code = 2237) 102 MG/DL RISK RATIO LDL/HDL (test code = 1.59 RATIO 2238) COMPREHENSIVE METABOLIC [id number] 00:00:00 Test Item Value Reference Range Interpretation Comments GLUCOSE (test code = 2217) 121 MG/DL BUN (test code = 2208) 22 MG/DL CREATININE (test code = 2214) 1.11 MG/DL eGFR AMER. (test code 66 ML/MIN/1.73 = 61372) eGFR NON- AMER. (test 57 ML/MIN/1.73 code = 09667) CALC BUN/CREAT (test code = 20 RATIO [...] code = 2219) 11 U/L COMPREHENSIVE METABOLIC [id number] 00:00:00 Test Item Value Reference Range Interpretation Comments GLUCOSE (test code = 7) 121 MG/DL BUN (test code = 8) 22 MG/DL CREATININE (test code = 2214) 1.11 MG/DL eGFR AMER. (test code 66 ML/MIN/1.73 = 36895) eGFR NON- AMER. (test 57 ML/MIN/1.73 code = 34444) CALC BUN/CREAT (test code = 20 RATIO [...] IRON BINDING CAPACITY AND IRON AND % [id number] 00:00:00 Test Item Value Reference Range Interpretation Comments IRON, SERUM (test code = 2221) 42 UG/DL UNSATURATED IBC (test code = ) 246 UG/DL CALC TOTAL IBC (test code = 2076) 288 UG/DL CALC % IRON SAT (test code = 2078) 15 % IRON BINDING CAPACITY AND IRON AND % [id number] 00:00:00 Test Item Value Reference Range Interpretation Comments IRON, SERUM (test code = 2222) 42 UG/DL UNSATURATED IBC (test code = 93629) 246 UG/DL CALC TOTAL IBC (test code = 2076) 288 UG/DL CALC % IRON SAT (test code = 2078) 15 % [id number] 00:00:00 Test Item Value Reference Range Interpretation Comments FERRITIN (test code = 2074) 35 NG/ML [id number] 00:00:00 Test Item Value Reference Range Interpretation Comments FERRITIN (test code = 2074) 35 NG/ML [id number] 00:00:00 Test Item Value Reference Range Interpretation Comments TRANSFERRIN (test code = 4936) 232 MG/DL [id number] 00:00:00 Test Item Value Reference Range Interpretation Comments TRANSFERRIN (test code = 4936) 232 MG/DL VITAMIN D, 25 [id number] 00:00:00 Test Item Value Reference Range Interpretation Comments VITAMIN D, 25 OH (test code = 4958) 15 NG/ML VITAMIN D, 25 [id number] 00:00:00 Test Item Value Reference Range Interpretation Comments VITAMIN D, 25 OH (test code = 4958) 15 NG/ML CT HEAD WO [id number] 04:01:33 No acute intracranial abnormality. Preliminary Report [...] have reviewed this study and agree withtheabove report.[facility]00 Test Item Value Reference Range Interpretation Comments APPEARANCE (test code = Turbid Clear A 8861854596) COLOR (test code = Roxy Yellow A 2843901094) PH (test code = 4.8-8.0 6553306021) SP GRAVITY (test code = 1.003-1.030 H 7687530493) GLU U QUAL (test code = Normal Normal 6566954929) BLOOD (test code = Negative Negative 0254831916) KETONES (test code = 20 mg/dL Negative A 1787213952) PROTEIN (test code = 30 mg/dL Negative A 2887-8) UROBILIN (test code = Normal Normal 3675369184) BILIRUBIN (test code = Negative Negative 0114013754) NITRITE (test code = Negative Negative 7878586009) LEUK MARKOS (test code = Negative Negative 9732054665) RBC/HPF (test code = See_Comment [Autom ated message] 9855733336) The system [employer] generated this result transmitted ref erence range: 0 - 3 HP F. The reference range was not used to int erpret this result as normal/abnormal . WBC/HPF (test code = See_Comment [Autom ated message] 3797959804) The system [employer] generated this result transmitted ref erence range: 0 - 5 HP F. The reference range was not used to int erpret this result as normal/abnormal . BACTERIA (test code = Many Negative A 3427451406) MUCOUS (test code = Moderate Negative LPF A 2778517202) HYAL CAST (test code = See_Comment H [Aut omated message] 1462374176) The system [employer] generated this result transmitted ref erence range: <=2 LPF. The reference range was not used to int erpret this result as normal/abnormal . GRAN CASTS (test code = See_Comment H [Au tomated message] 5121900904) The system [employer] generated this result transmitted ref erence range: <=1 LPF. The reference range was not used to int erpret this result as normal/abnormal . Lab Interpretation (test Abnormal code = 72931-4) [facility] - DRUG SCREEN [id number] 03:00:00 Test Item Value Reference Range Interpretation Comments BENZO U (test code = Negative Negative 9996674800) JESSICA U (test code = Negative Negative 2080170536) AMPHET (test code = Negative Negative 1515566998) THC (test code = Negative Negative 6098343390) METHADONE (test code Negative Negative = 4427900018) Meth U (test code = Negative Negative 5298732593) OPIATES (test code = Negative Negative 4342009600) Cocaine Metabolite Negative Negative (test code = 7767346974) PROPOXY (test code = Negative Negative 9498319604) Tric U (test code = Presumptive Negative A Confirma tion of 1099111186) Positive Presumptive Positive TCA result requires physician order and this will b e sent to referen ce lab. PCP (test code = Negative Negative 5503560666) OXYCOD (test code = Negative Negative 4723225738) TULIO (test code = Urine Drug Cutoff [...] testing). Lab Interpretation Abnormal (test code = 99248-3) [facility] [id number] 02:55:00 Test Item Value Reference Range Interpretation Comments TROPONIN I (test <0.012 See_Comment [Automated code = 0704183313) message] The system which generated this result [...] ? Lab Interpretation Normal (test code = 21214-1) [facility] CenterVAL[facility]ID, [id number] 02:50:00 Test Item Value Reference Range Interpretation Comments VALPROIC A (test code = <10 50-100 L 5376431925) TULIO (test code = TULIO) Toxic Range: ?Greater than 100 ug/mL Lab Interpretation (test Abnormal code = 23092-0) [facility] CenterSAL[facility]YLATE2020-[facility]-08 02:45:00 Test Item Value Reference Range Interpretation Comments SALICYLATE (test code <10 mg/L = 1473853976) TULIO (test code = TULIO) Therapeutic Range: ? Analgesic and Antipyretic Use ? 20-100 mg/L ? ? Anti-Inflammatory Use ? 100-250 mg/L Toxic Range: ? Greater than 300 mg/L [facility]ETHANOL2020-12-[facility] 02:45:00 Test Item Value Reference Range Interpretation Comments ALCOHOL (test code = <10 mg/dL 2849273270) TULIO (test code = TULIO) <10 [id number] Toxic>100 Depression of CARD PUNCHING MACHINE OPERATOR>400 Fatalities Reported [facility] CenterACETAMINOPHEN2020-12-08 02:44:00 Test Item Value Reference Range Interpretation Comments ACETAMINOP (test code = <10.0 10-30 L 4021011397) TULIO (test code = TULIO) Toxic: Greater than 200 ug/mL @ 4 hour post ingestion or greater than 50 ug/mL @ 12 hour post ingestion Lab Interpretation (test Abnormal code = 95622-3) [facility] CenterCOM. METABOLIC PANEL (54843)2020-02-13 02:43:00 Test Item Value Reference Range Interpretation Comments NA (test code = 138 mmol/L 135-145 7140632331) K (test code = 5.1 mmol/L 3.5-5 H 0193674056) CL (test code = 106 mmol/L 98-108 9366364827) CO2 TOTAL (test code = 19 mmol/L 23-31 L 8010009326) AGAP (test code = 2-16 4121681244) BUN (test code = 26 mg/dL 7-23 H 5856402580) GLUCOSE (test code = 113 mg/dL 70-110 H 9119310399) CREATININE (test code = 1.20 mg/dL 0.5-1.04 H 0499641504) TOTAL BILI (test code = 0.5 mg/dL 0.1-1.5 3042997841) CALCIUM (test code = 10.4 mg/dL 8.6-10.6 5178545684) T PROTEIN (test code = 8.4 g/dL 6.3-8.2 H 9176956588) ALBUMIN (test code = 4.7 g/dL 3.5-5 1653397571) ALK PHOS (test code = 115 U/L 34-122 0666847237) ALTv (test code = 14 U/L 5-35 1742-6) AST(SGOT) (test code = 20 U/L 13-40 1939650866) eGFR Calculation mL/min/1.73m2 (Non-) (test code = 3806496362) eGFR Calculation mL/min/1.73m2 () (test code = 9022174721) TULIO (test code = TULIO) Association of [...] tests). Lab Interpretation Abnormal (test code = 51725-7) [facility] CenterCOVID-[facility] (ID NOW RAPID TESTING)2020-02-13 02:15:00 Test Item Value Reference Range Interpretation Comments SARS-CoV-2 Rapid ID NOW Not Detected Not Detected (test code = 24978-9) TULIO (test code = TULIO) ID NOW COVID-19 Assay is an isothermal nucleic acid amplification test intended for the qualitative detection of nucleic acid from SARS-CoV-2 viral RNA in nasopharyngeal (OPTICAL ENGINEER) specimens. It is used under Emergency Use [...] indicated. Lab Interpretation Normal (test code = 38200-6) [facility] WITH [id number] 01:53:00 Test Item Value Reference Range Interpretation Comments WBC (test code = See_Comment H [Automated 7741-2) message] The sy stem which generated this result transmitted reference range : 4.30 - 11.10 10*3/?L. The reference range was not used to interpret this result as normal/abnormal . RBC (test code = See_Comment [Automated 291-8) message] The sy stem which generated this [...] RDW-SD (test code = 43.3 fL 39-49.9 02943-0) RDW-CV (test code = 14.1 % 12-15.5 788-0) PLT (test code = See_Comment H [Automated 777-3) message] The sy stem which generated this result transmitted reference range : 166 - 358 10*3/ ?L. The reference r xochitl was not used to interpret this result as normal/abnormal . MPV (test code = 9.6 fL 9.5-12.9 68166-4) NRBC/100 WBC (test See_Comment [Automat ed code = 3000684350) message] The system which generated this result transmitted reference range : 0.0 - 10.0 /100 WBCs. The refer ence range was not u sed to interpret th is result as normal/abnormal . NRBC x10^3 (test code <0.01 See_Comment [Auto mated = 7203484516) message] The s ystem which generated this result transmitted reference range : 10*3/?L. The reference range was not used to interpret this result as normal/abnormal . GRAN MAT (NEUT) % 82.3 % (test code = 770-8) IMM GRAN % (test code 0.70 % = 1660827915) LYMPH % (test code = 12.5 % 736-9) MONO % (test code = 3.9 % 5905-5) EOS % (test code = 0.2 % 713-8) BASO % (test code = 0.4 % 706-2) GRAN MAT x10^3(ANC) 9.44 10*3/uL 1.88-7.09 H (test code = 0621218225) IMM GRAN x10^3 (test 0.08 10*3/uL 0-0.06 H code = 1720194034) LYMPH x10^3 (test code 1.43 10*3/uL 1.32-3.29 = 731-0) MONO x10^3 (test code 0.45 10*3/uL 0.33-0.92 = 742-7) EOS x10^3 (test code = <0.03 0.03-0.39 L 711-2) BASO x10^3 (test code 0.05 10*3/uL 0.01-0.07 = 704-7) Lab Interpretation Abnormal (test code = 81759-0) [facility] Center[facility] ([facility]OVID-19) by RT-PCR (HIGH RISK) 2019-09-22 00:00:00 Test Item Value Reference Range Interpretation Comments SARS-CoV-2 INTERPRETATION (test NEGATIVE code = 69216) SOURCE (test code = 96338) NOT SPECIFIED SARS-CoV-2 (COVID-19) by RT-PCR (HIGH RISK)2019-09-22 00:00:00 Test Item Value Reference Range Interpretation Comments SARS-CoV-2 INTERPRETATION (test NEGATIVE code = 21365) SOURCE (test code = 74860) NOT SPECIFIED SARS-CoV-2 (COVID-19) by RT-PCR (HIGH RISK)2019-09-22 00:00:00 Test Item Value Reference Range Interpretation Comments SARS-CoV-2 INTERPRETATION (test NEGATIVE code = 81269) SOURCE (test code = 25474) NOT SPECIFIED SARS-CoV-2 (COVID-19) by RT-PCR (HIGH RISK)2019-09-22 00:00:00 Test Item Value Reference Range Interpretation Comments SARS-CoV-2 INTERPRETATION (test NEGATIVE code = 24050) SOURCE (test code = 30186) NOT SPECIFIED SARS-CoV-2 (COVID-19) by RT-PCR (HIGH RISK)2019-09-22 00:00:00 Test Item Value Reference Range Interpretation Comments SARS-CoV-2 INTERPRETATION (test NEGATIVE code = 99578) SOURCE (test code = 51816) NOT SPECIFIED SARS-CoV-2 (COVID-19) by RT-PCR (HIGH RISK)2019-09-22 00:00:00 Test Item Value Reference Range Interpretation Comments SARS-CoV-2 INTERPRETATION (test NEGATIVE code = 29681) SOURCE (test code = 27685) NOT SPECIFIED DRUG SCREEN, [id number] 00:00:00 Test Item Value Reference Range Interpretation Comments AMPHETAMINES (test code = 27148) Negative BARBITURATES (test code = 76423) Negative BENZODIAZEPINES (test code = 90003) Positive COCAINE METABOLITE (test code = Negative 27247) METHADONE (test code = 11177) Negative OPIATES (test code = 391367) Negative PHENCYCLIDINE (test code = 019813) Negative PROPOXYPHENE (test code = 616400) Negative THC (CANNABIS) (test code = 315461) Negative ETHANOL (test code = 339961) Negative DRUG SCREEN, [id number] 00:00:00 Test Item Value Reference Range Interpretation Comments AMPHETAMINES (test code = 96793) Negative BARBITURATES (test code = 93064) Negative BENZODIAZEPINES (test code = 47893) Positive COCAINE METABOLITE (test code = Negative 99859) METHADONE (test code = 20838) Negative OPIATES (test code = 208686) Negative PHENCYCLIDINE (test code = 153168) Negative PROPOXYPHENE (test code = 017049) Negative THC (CANNABIS) (test code = 841123) Negative ETHANOL (test code = 525706) Negative DRUG SCREEN, [id number] 00:00:00 Test Item Value Reference Range Interpretation Comments AMPHETAMINES (test code = 08731) Negative BARBITURATES (test code = 51851) Negative BENZODIAZEPINES (test code = 73610) Positive COCAINE METABOLITE (test code = Negative 54809) METHADONE (test code = 34572) Negative OPIATES (test code = 832854) Negative PHENCYCLIDINE (test code = 951871) Negative PROPOXYPHENE (test code = 465898) Negative THC (CANNABIS) (test code = 377839) Negative ETHANOL (test code = 611354) Negative DRUG SCREEN, [id number] 00:00:00 Test Item Value Reference Range Interpretation Comments AMPHETAMINES (test code = 44330) Negative BARBITURATES (test code = 53599) Negative BENZODIAZEPINES (test code = 14576) Positive COCAINE METABOLITE (test code = Negative 71173) METHADONE (test code = 30405) Negative OPIATES (test code = 046996) Negative PHENCYCLIDINE (test code = 585796) Negative PROPOXYPHENE (test code = 069206) Negative THC (CANNABIS) (test code = 101409) Negative ETHANOL (test code = 354815) Negative DRUG SCREEN, [id number] 00:00:00 Test Item Value Reference Range Interpretation Comments AMPHETAMINES (test code = 90139) Negative BARBITURATES (test code = 77986) Negative BENZODIAZEPINES (test code = 48106) Positive COCAINE METABOLITE (test code = Negative 70289) METHADONE (test code = 10316) Negative OPIATES (test code = 476076) Negative PHENCYCLIDINE (test code = 780372) Negative PROPOXYPHENE (test code = 354208) Negative THC (CANNABIS) (test code = 339645) Negative ETHANOL (test code = 072155) Negative DRUG SCREEN, [id number] 00:00:00 Test Item Value Reference Range Interpretation Comments AMPHETAMINES (test code = 57609) Negative BARBITURATES (test code = 59398) Negative BENZODIAZEPINES (test code = 41444) Positive COCAINE METABOLITE (test code = Negative 25545) METHADONE (test code = 16531) Negative OPIATES (test code = 630669) Negative PHENCYCLIDINE (test code = 001548) Negative PROPOXYPHENE (test code = 259819) Negative THC (CANNABIS) (test code = 239257) Negative ETHANOL (test code = 643557) Negative BUPRENORPHINE AND [id number] 00:00:00 Test Item Value Reference Range Interpretation Comments NORBUPRENORPHINE (test code = <1.0 ng/mL 31118) BUPRENORPHINE (test code = 79443) <1.0 ng/mL BUPRENORPHINE AND [id number] 00:00:00 Test Item Value Reference Range Interpretation Comments NORBUPRENORPHINE (test code = <1.0 ng/mL 03876) BUPRENORPHINE (test code = 64616) <1.0 ng/mL BUPRENORPHINE AND [id number] 00:00:00 Test Item Value Reference Range Interpretation Comments NORBUPRENORPHINE (test code = <1.0 ng/mL 51198) BUPRENORPHINE (test code = 08703) <1.0 ng/mL BUPRENORPHINE AND [id number] 00:00:00 Test Item Value Reference Range Interpretation Comments NORBUPRENORPHINE (test code = <1.0 ng/mL 68791) BUPRENORPHINE (test code = 08792) <1.0 ng/mL BUPRENORPHINE AND [id number] 00:00:00 Test Item Value Reference Range Interpretation Comments NORBUPRENORPHINE (test code = <1.0 ng/mL 85606) BUPRENORPHINE (test code = 64611) <1.0 ng/mL BUPRENORPHINE AND [id number] 00:00:00 Test Item Value Reference Range Interpretation Comments NORBUPRENORPHINE (test code = <1.0 ng/mL 22724) BUPRENORPHINE (test code = 71466) <1.0 ng/mL COMPREHENSIVE METABOLIC [id number] 00:00:00 Test Item Value Reference Range Interpretation Comments GLUCOSE (test code = 2217) 105 MG/DL BUN (test code = 2208) 19 MG/DL CREATININE (test code = 2214) 0.94 MG/DL eGFR AMER. (test code 81 ML/MIN/1.73 = 96391) eGFR NON- AMER. (test 70 ML/MIN/1.73 code = 40327) CALC BUN/CREAT (test code = 20 RATIO [...] code = 2219) 18 U/L COMPREHENSIVE METABOLIC [id number] 00:00:00 Test Item Value Reference Range Interpretation Comments GLUCOSE (test code = 2217) 105 MG/DL BUN (test code = 2208) 19 MG/DL CREATININE (test code = 2214) 0.94 MG/DL eGFR AMER. (test code 81 ML/MIN/1.73 = 48202) eGFR NON- AMER. (test 70 ML/MIN/1.73 code = 43314) CALC BUN/CREAT (test code = 20 RATIO [...] code = 2219) 18 U/L COMPREHENSIVE METABOLIC [id number] 00:00:00 Test Item Value Reference Range Interpretation Comments GLUCOSE (test code = 2217) 105 MG/DL BUN (test code = 2208) 19 MG/DL CREATININE (test code = 2214) 0.94 MG/DL eGFR AMER. (test code 81 ML/MIN/1.73 = 87317) eGFR NON- AMER. (test 70 ML/MIN/1.73 code = 40547) CALC BUN/CREAT (test code = 20 RATIO [...] code = 2219) 18 U/L COMPREHENSIVE METABOLIC [id number] 00:00:00 Test Item Value Reference Range Interpretation Comments GLUCOSE (test code = 2217) 105 MG/DL BUN (test code = 2208) 19 MG/DL CREATININE (test code = 2214) 0.94 MG/DL eGFR AMER. (test code 81 ML/MIN/1.73 = 22119) eGFR NON- AMER. (test 70 ML/MIN/1.73 code = 13534) CALC BUN/CREAT (test code = 20 RATIO [...] code = 2219) 18 U/L COMPREHENSIVE METABOLIC [id number] 00:00:00 Test Item Value Reference Range Interpretation Comments GLUCOSE (test code = 2217) 105 MG/DL BUN (test code = 2208) 19 MG/DL CREATININE (test code = 2214) 0.94 MG/DL eGFR AMER. (test code 81 ML/MIN/1.73 = 97970) eGFR NON- AMER. (test 70 ML/MIN/1.73 code = 99994) CALC BUN/CREAT (test code = 20 RATIO [...] code = 2219) 18 U/L COMPREHENSIVE METABOLIC [id number] 00:00:00 Test Item Value Reference Range Interpretation Comments GLUCOSE (test code = 2217) 105 MG/DL BUN (test code = 2208) 19 MG/DL CREATININE (test code = 2214) 0.94 MG/DL eGFR AMER. (test code 81 ML/MIN/1.73 = 68001) eGFR NON- AMER. (test 70 ML/MIN/1.73 code = 49255) CALC BUN/CREAT (test code = 20 RATIO [...] code = 2219) 18 U/L DRUG SCREEN, [id number] 00:00:00 Test Item Value Reference Range Interpretation Comments AMPHETAMINES (test code = 39772) Negative BARBITURATES (test code = 76091) Negative BENZODIAZEPINES (test code = 25556) Negative COCAINE METABOLITE (test code = Negative 18684) METHADONE (test code = 90615) Negative OPIATES (test code = 483501) Negative PHENCYCLIDINE (test code = 450366) Negative PROPOXYPHENE (test code = 299027) Negative THC (CANNABIS) (test code = 068486) Negative ETHANOL (test code = 921527) Negative DRUG SCREEN, [id number] 00:00:00 Test Item Value Reference Range Interpretation Comments AMPHETAMINES (test code = 36745) Negative BARBITURATES (test code = 41487) Negative BENZODIAZEPINES (test code = 01731) Negative COCAINE METABOLITE (test code = Negative 33452) METHADONE (test code = 14862) Negative OPIATES (test code = 447009) Negative PHENCYCLIDINE (test code = 127958) Negative PROPOXYPHENE (test code = 212972) Negative THC (CANNABIS) (test code = 399283) Negative ETHANOL (test code = 200992) Negative DRUG SCREEN, [id number] 00:00:00 Test Item Value Reference Range Interpretation Comments AMPHETAMINES (test code = 85391) Negative BARBITURATES (test code = 67841) Negative BENZODIAZEPINES (test code = 09405) Negative COCAINE METABOLITE (test code = Negative 25327) METHADONE (test code = 79974) Negative OPIATES (test code = 725440) Negative PHENCYCLIDINE (test code = 545711) Negative PROPOXYPHENE (test code = 705464) Negative THC (CANNABIS) (test code = 697673) Negative ETHANOL (test code = 122316) Negative DRUG SCREEN, [id number] 00:00:00 Test Item Value Reference Range Interpretation Comments AMPHETAMINES (test code = 50045) Negative BARBITURATES (test code = 78870) Negative BENZODIAZEPINES (test code = 34381) Negative COCAINE METABOLITE (test code = Negative 65852) METHADONE (test code = 58962) Negative OPIATES (test code = 822563) Negative PHENCYCLIDINE (test code = 943037) Negative PROPOXYPHENE (test code = 280409) Negative THC (CANNABIS) (test code = 206911) Negative ETHANOL (test code = 705029) Negative DRUG SCREEN, [id number] 00:00:00 Test Item Value Reference Range Interpretation Comments AMPHETAMINES (test code = 10340) Negative BARBITURATES (test code = 82093) Negative BENZODIAZEPINES (test code = 55653) Negative COCAINE METABOLITE (test code = Negative 72993) METHADONE (test code = 27441) Negative OPIATES (test code = 626645) Negative PHENCYCLIDINE (test code = 515476) Negative PROPOXYPHENE (test code = 715688) Negative THC (CANNABIS) (test code = 208447) Negative ETHANOL (test code = 276868) Negative DRUG SCREEN, [id number] 00:00:00 Test Item Value Reference Range Interpretation Comments AMPHETAMINES (test code = 64012) Negative BARBITURATES (test code = 59545) Negative BENZODIAZEPINES (test code = 08002) Negative COCAINE METABOLITE (test code = Negative 49277) METHADONE (test code = 11312) Negative OPIATES (test code = 919635) Negative PHENCYCLIDINE (test code = 091372) Negative PROPOXYPHENE (test code = 473363) Negative THC (CANNABIS) (test code = 569250) Negative ETHANOL (test code = 186802) Negative CBC W/AUTO [id number] 00:00:00 Test Item Value Reference Range Interpretation [...] code = 1015) 307 K/UL CBC W/AUTO [id number] 00:00:00 Test Item Value Reference Range Interpretation [...] code = 1015) 307 K/UL CBC W/AUTO [id number] 00:00:00 Test Item Value Reference Range Interpretation [...] code = 1015) 307 K/UL CBC W/AUTO [id number] 00:00:00 Test Item Value Reference Range Interpretation [...] code = 1015) 307 K/UL CBC W/AUTO [id number] 00:00:00 Test Item Value Reference Range Interpretation [...] code = 1015) 307 K/UL CBC W/AUTO [id number] 00:00:00 Test Item Value Reference Range Interpretation [...] code = 1015) 307 K/UL CBC W/AUTO [id number] 00:00:00 Test Item Value Reference Range Interpretation [...] code = 1015) 307 K/UL CBC W/AUTO [id number] 00:00:00 Test Item Value Reference Range Interpretation [...] code = 1015) 307 K/UL CBC W/AUTO [id number] 00:00:00 Test Item Value Reference Range Interpretation [...] code = 1015) 307 K/UL DRUG SCREEN, [id number] 00:00:00 Test Item Value Reference Range Interpretation Comments AMPHETAMINES (test code = 75875) Negative BARBITURATES (test code = 22172) Negative BENZODIAZEPINES (test code = 76062) Positive COCAINE METABOLITE (test code = Negative 67215) METHADONE (test code = 93924) Negative OPIATES (test code = 693714) Negative PHENCYCLIDINE (test code = 118042) Negative PROPOXYPHENE (test code = 937111) Negative THC (CANNABIS) (test code = 166055) Negative ETHANOL (test code = 092158) Negative DRUG SCREEN, [id number] 00:00:00 Test Item Value Reference Range Interpretation Comments AMPHETAMINES (test code = 19408) Negative BARBITURATES (test code = 93545) Negative BENZODIAZEPINES (test code = 50137) Positive COCAINE METABOLITE (test code = Negative 88899) METHADONE (test code = 97950) Negative OPIATES (test code = 538129) Negative PHENCYCLIDINE (test code = 784936) Negative PROPOXYPHENE (test code = 173803) Negative THC (CANNABIS) (test code = 221870) Negative ETHANOL (test code = 640944) Negative DRUG SCREEN, [id number] 00:00:00 Test Item Value Reference Range Interpretation Comments AMPHETAMINES (test code = 63332) Negative BARBITURATES (test code = 92864) Negative BENZODIAZEPINES (test code = 89796) Positive COCAINE METABOLITE (test code = Negative 93871) METHADONE (test code = 67596) Negative OPIATES (test code = 134212) Negative PHENCYCLIDINE (test code = 422658) Negative PROPOXYPHENE (test code = 925794) Negative THC (CANNABIS) (test code = 448609) Negative ETHANOL (test code = 638508) Negative DRUG SCREEN, [id number] 00:00:00 Test Item Value Reference Range Interpretation Comments AMPHETAMINES (test code = 79364) Negative BARBITURATES (test code = 76677) Negative BENZODIAZEPINES (test code = 64843) Positive COCAINE METABOLITE (test code = Negative 16985) METHADONE (test code = 46642) Negative OPIATES (test code = 017233) Negative PHENCYCLIDINE (test code = 739661) Negative PROPOXYPHENE (test code = 567565) Negative THC (CANNABIS) (test code = 964659) Negative ETHANOL (test code = 715223) Negative DRUG SCREEN, [id number] 00:00:00 Test Item Value Reference Range Interpretation Comments AMPHETAMINES (test code = 13473) Negative BARBITURATES (test code = 29912) Negative BENZODIAZEPINES (test code = 68941) Positive COCAINE METABOLITE (test code = Negative 12761) METHADONE (test code = 18599) Negative OPIATES (test code = 728609) Negative PHENCYCLIDINE (test code = 666627) Negative PROPOXYPHENE (test code = 848319) Negative THC (CANNABIS) (test code = 635685) Negative ETHANOL (test code = 084925) Negative DRUG SCREEN, [id number] 00:00:00 Test Item Value Reference Range Interpretation Comments AMPHETAMINES (test code = 60210) Negative BARBITURATES (test code = 37414) Negative BENZODIAZEPINES (test code = 99242) Positive COCAINE METABOLITE (test code = Negative 62073) METHADONE (test code = 82307) Negative OPIATES (test code = 101486) Negative PHENCYCLIDINE (test code = 872216) Negative PROPOXYPHENE (test code = 292374) Negative THC (CANNABIS) (test code = 682839) Negative ETHANOL (test code = 485040) Negative BUPRENORPHINE AND [id number] 00:00:00 Test Item Value Reference Range Interpretation Comments NORBUPRENORPHINE (test code = 2.7 ng/mL 09700) BUPRENORPHINE (test code = 25663) 6.4 ng/mL BUPRENORPHINE AND [id number] 00:00:00 Test Item Value Reference Range Interpretation Comments NORBUPRENORPHINE (test code = 2.7 ng/mL 49375) BUPRENORPHINE (test code = 62178) 6.4 ng/mL BUPRENORPHINE AND [id number] 00:00:00 Test Item Value Reference Range Interpretation Comments NORBUPRENORPHINE (test code = 2.7 ng/mL 32488) BUPRENORPHINE (test code = 87919) 6.4 ng/mL BUPRENORPHINE AND [id number] 00:00:00 Test Item Value Reference Range Interpretation Comments NORBUPRENORPHINE (test code = 2.7 ng/mL 91284) BUPRENORPHINE (test code = 02017) 6.4 ng/mL BUPRENORPHINE AND [id number] 00:00:00 Test Item Value Reference Range Interpretation Comments NORBUPRENORPHINE (test code = 2.7 ng/mL 29208) BUPRENORPHINE (test code = 35081) 6.4 ng/mL BUPRENORPHINE AND [id number] 00:00:00 Test Item Value Reference Range Interpretation Comments NORBUPRENORPHINE (test code = 2.7 ng/mL 15298) BUPRENORPHINE (test code = 39061) 6.4 ng/mL COMPREHENSIVE METABOLIC PANEL [ADDED]2019-06-15 00:00:00 Test Item Value Reference Range Interpretation Comments GLUCOSE (test code = 2217) 112 MG/DL BUN (test code = 2208) 32 MG/DL CREATININE (test code = 2214) 1.18 MG/DL eGFR AMER. (test code 62 ML/MIN/1.73 = 52114) eGFR NON- AMER. (test 53 ML/MIN/1.73 code = 19755) CALC BUN/CREAT (test code = 27 RATIO [...] eGFR AMER. (test code 62 ML/MIN/1.73 = 52099) eGFR NON- AMER. (test 53 ML/MIN/1.73 code = 33180) CALC BUN/CREAT (test code = 27 RATIO [...] eGFR AMER. (test code 62 ML/MIN/1.73 = 35501) eGFR NON- AMER. (test 53 ML/MIN/1.73 code = 94625) CALC BUN/CREAT (test code = 27 RATIO [...] eGFR AMER. (test code 62 ML/MIN/1.73 = 45814) eGFR NON- AMER. (test 53 ML/MIN/1.73 code = 70885) CALC BUN/CREAT (test code = 27 RATIO [...] eGFR AMER. (test code 62 ML/MIN/1.73 = 72188) eGFR NON- AMER. (test 53 ML/MIN/1.73 code = 32596) CALC BUN/CREAT (test code = 27 RATIO [...] eGFR AMER. (test code 62 ML/MIN/1.73 = 35870) eGFR NON- AMER. (test 53 ML/MIN/1.73 code = 12712) CALC BUN/CREAT (test code = 27 RATIO [...] Comments HYDROXYALPRAZOLAM INTERP (test code Positive = 92923) HYDROXYALPRAZOLAM QNT (test code = 883 ng/mL 909183) LORAZEPAM INTERP (test code = Negative 84333) LORAZEPAM QNT (test code = 52702) <50 ng/mL OXAZEPAM INTERP (test code = 54217) Negative OXAZEPAM QNT (test code = 70955) <50 ng/mL TEMAZEPAM INTERP (test code = Negative 568808) TEMAZEPAM QNT (test code = 709316) <50 ng/mL NORDIAZEPAM INTERP (test code = Negative 97619) NORDIAZEPAM QNT (test code = 28712) <50 ng/mL DN-XHLXZ-[id number] INTERP (test Negative code = 517062) ME-IYSFO-HCDCJMSRQW QNT (test code <50 ng/mL = 773853) 7-AMINOCLONAZEPAM INTERP (test code Negative = 685098) 7-AMINOCLONAZEPAM QNT (test code = <50 ng/mL 272287) 7-AMINOFLUNITRAZEPAM INTERP (test Negative code = 050725) 7-AMINOFLUNITRAZEPAM QNT (test code <50 ng/mL = 053970) HYDROXYTRIAZOLAM INTERP (test code Negative = 863827) HYDROXYTRIAZOLAM QNT (test code = <50 ng/mL 481813) BENZODIAZEPINE, QUANT, URINE [REFLEX]2019-05-26 00:00:00 Test Item Value Reference Range Interpretation Comments HYDROXYALPRAZOLAM INTERP (test code Positive = 72312) HYDROXYALPRAZOLAM QNT (test code = 883 ng/mL 128970) LORAZEPAM INTERP (test code = Negative 96581) LORAZEPAM QNT (test code = 40629) <50 ng/mL OXAZEPAM INTERP (test code = 43770) Negative OXAZEPAM QNT (test code = 41478) <50 ng/mL TEMAZEPAM INTERP (test code = Negative 145271) TEMAZEPAM QNT (test code = 964539) <50 ng/mL NORDIAZEPAM INTERP (test code = Negative 25728) NORDIAZEPAM QNT (test code = 33646) <50 ng/mL [id number]-[id number]-[id number] INTERP (test Negative code = 049350) HF-XSVJC-BBOEOCJJNV QNT (test code <50 ng/mL = 349279) 7-AMINOCLONAZEPAM INTERP (test code Negative = 373815) 7-AMINOCLONAZEPAM QNT (test code = <50 ng/mL 015988) 7-AMINOFLUNITRAZEPAM INTERP (test Negative code = 054062) 7-AMINOFLUNITRAZEPAM QNT (test code <50 ng/mL = 763319) HYDROXYTRIAZOLAM INTERP (test code Negative = 279671) HYDROXYTRIAZOLAM QNT (test code = <50 ng/mL 428503) BUPRENORPHINE, QUANT, URINE [REFLEX]2019-05-26 00:00:00 Test Item Value Reference Range Interpretation Comments BUPRENORPHINE INTERP (test code = Positive 25324) BUPRENORPHINE QNT (test code = 65 ng/mL 52687) BENZODIAZEPINE, QUANT, URINE [REFLEX]2019-05-26 00:00:00 Test Item Value Reference Range Interpretation Comments HYDROXYALPRAZOLAM INTERP (test code Positive = 31370) HYDROXYALPRAZOLAM QNT (test code = 883 ng/mL 431180) LORAZEPAM INTERP (test code = Negative 05933) LORAZEPAM QNT (test code = 13401) <50 ng/mL OXAZEPAM INTERP (test code = 83032) Negative OXAZEPAM QNT (test code = 56685) <50 ng/mL TEMAZEPAM INTERP (test code = Negative 439843) TEMAZEPAM QNT (test code = 824336) <50 ng/mL NORDIAZEPAM INTERP (test code = Negative 74814) NORDIAZEPAM QNT (test code = 55638) <50 ng/mL ZX-BFAIR-TEOIRKLCMM INTERP (test Negative code = 569374) DC-LYGBK-JOQYJUEDDK QNT (test code <50 ng/mL = 130132) 7-AMINOCLONAZEPAM INTERP (test code Negative = 423003) 7-AMINOCLONAZEPAM QNT (test code = <50 ng/mL 888568) 7-AMINOFLUNITRAZEPAM INTERP (test Negative code = 918523) 7-AMINOFLUNITRAZEPAM QNT (test code <50 ng/mL = 799179) HYDROXYTRIAZOLAM INTERP (test code Negative = 929682) HYDROXYTRIAZOLAM QNT (test code = <50 ng/mL 366679) BENZODIAZEPINE, QUANT, URINE [REFLEX]2019-05-26 00:00:00 Test Item Value Reference Range Interpretation Comments HYDROXYALPRAZOLAM INTERP (test code Positive = 15435) HYDROXYALPRAZOLAM QNT (test code = 883 ng/mL 909764) LORAZEPAM INTERP (test code = Negative 42771) LORAZEPAM QNT (test code = 02010) <50 ng/mL OXAZEPAM INTERP (test code = 77052) Negative OXAZEPAM QNT (test code = 89416) <50 ng/mL TEMAZEPAM INTERP (test code = Negative 356285) TEMAZEPAM QNT (test code = 885273) <50 ng/mL NORDIAZEPAM INTERP (test code = Negative 33865) NORDIAZEPAM QNT (test code = 27496) <50 ng/mL KA-BWMGL-YRCEDZKBOE INTERP (test Negative code = 961018) MA-KSGHL-SLOEUSOFSJ QNT (test code <50 ng/mL = 839180) 7-AMINOCLONAZEPAM INTERP (test code Negative = 213541) 7-AMINOCLONAZEPAM QNT (test code = <50 ng/mL 804896) 7-AMINOFLUNITRAZEPAM INTERP (test Negative code = 539324) 7-AMINOFLUNITRAZEPAM QNT (test code <50 ng/mL = 974084) HYDROXYTRIAZOLAM INTERP (test code Negative = 326452) HYDROXYTRIAZOLAM QNT (test code = <50 ng/mL 753262) BUPRENORPHINE, QUANT, URINE [REFLEX]2019-05-26 00:00:00 Test Item Value Reference Range Interpretation Comments BUPRENORPHINE INTERP (test code = Positive 78129) BUPRENORPHINE QNT (test code = 65 ng/mL 71615) BENZODIAZEPINE, QUANT, URINE [REFLEX]2019-05-26 00:00:00 Test Item Value Reference Range Interpretation Comments HYDROXYALPRAZOLAM INTERP (test code Positive = 94867) HYDROXYALPRAZOLAM QNT (test code = 883 ng/mL 603271) LORAZEPAM INTERP (test code = Negative 86747) LORAZEPAM QNT (test code = 88770) <50 ng/mL OXAZEPAM INTERP (test code = 61130) Negative OXAZEPAM QNT (test code = 24358) <50 ng/mL TEMAZEPAM INTERP (test code = Negative 996553) TEMAZEPAM QNT (test code = 912072) <50 ng/mL NORDIAZEPAM INTERP (test code = Negative 44394) NORDIAZEPAM QNT (test code = 02725) <50 ng/mL BZ-WUKUT-VWYCDTXVWL INTERP (test Negative code = 347909) NN-MMUIY-GRNTSEHTOD QNT (test code <50 ng/mL = 251856) 7-AMINOCLONAZEPAM INTERP (test code Negative = 204333) 7-AMINOCLONAZEPAM QNT (test code = <50 ng/mL 854189) 7-AMINOFLUNITRAZEPAM INTERP (test Negative code = 994278) 7-AMINOFLUNITRAZEPAM QNT (test code <50 ng/mL = 381165) HYDROXYTRIAZOLAM INTERP (test code Negative = 768750) HYDROXYTRIAZOLAM QNT (test code = <50 ng/mL 985389) BENZODIAZEPINE, QUANT, URINE [REFLEX]2019-05-26 00:00:00 Test Item Value Reference Range Interpretation Comments HYDROXYALPRAZOLAM INTERP (test code Positive = 86101) HYDROXYALPRAZOLAM QNT (test code = 883 ng/mL 449629) LORAZEPAM INTERP (test code = Negative 57573) LORAZEPAM QNT (test code = 15052) <50 ng/mL OXAZEPAM INTERP (test code = 09793) Negative OXAZEPAM QNT (test code = 96961) <50 ng/mL TEMAZEPAM INTERP (test code = Negative 209183) TEMAZEPAM QNT (test code = 143113) <50 ng/mL NORDIAZEPAM INTERP (test code = Negative 11384) NORDIAZEPAM QNT (test code = 71950) <50 ng/mL MM-[facility]-PONPGMIMWH INTERP (test Negative code = 222935) QO-WIEQP-VGZYPWRUAB QNT (test code <50 ng/mL = 348184) 7-AMINOCLONAZEPAM INTERP (test code Negative = 507278) 7-AMINOCLONAZEPAM QNT (test code = <50 ng/mL 176764) 7-AMINOFLUNITRAZEPAM INTERP (test Negative code = 768852) 7-AMINOFLUNITRAZEPAM QNT (test code <50 ng/mL = 858615) HYDROXYTRIAZOLAM INTERP (test code Negative = 564418) HYDROXYTRIAZOLAM QNT (test code = <50 ng/mL 906236) BUPRENORPHINE, QUANT, URINE [REFLEX]2019-05-26 00:00:00 Test Item Value Reference Range Interpretation Comments BUPRENORPHINE INTERP (test code = Positive 89034) BUPRENORPHINE QNT (test code = 65 ng/mL 26796) CBC W/AUTO [id number] 00:00:00 Test Item Value Reference Range Interpretation [...] code = 1015) 320 K/UL CBC W/AUTO [id number] 00:00:00 Test Item Value Reference Range Interpretation [...] code = 1015) 320 K/UL CBC W/AUTO [id number] 00:00:00 Test Item Value Reference Range Interpretation [...] code = 1015) 320 K/UL COMPREHENSIVE METABOLIC [id number] 00:00:00 Test Item Value Reference Range Interpretation Comments GLUCOSE (test code = 2217) 121 MG/DL BUN (test code = 2208) 25 MG/DL CREATININE (test code = 2214) 1.01 MG/DL eGFR AMER. (test code 75 ML/MIN/1.73 = 97673) eGFR NON- AMER. (test 64 ML/MIN/1.73 code = 60255) CALC BUN/CREAT (test code = 25 RATIO [...] code = 2219) 11 U/L COMPREHENSIVE METABOLIC [id number] 00:00:00 Test Item Value Reference Range Interpretation Comments GLUCOSE (test code = 2217) 121 MG/DL BUN (test code = 2208) 25 MG/DL CREATININE (test code = 2214) 1.01 MG/DL eGFR AMER. (test code 75 ML/MIN/1.73 = 89806) eGFR NON- AMER. (test 64 ML/MIN/1.73 code = 78514) CALC BUN/CREAT (test code = 25 RATIO [...] BILIRUBIN, TOTAL (test code = 0.2 MG/DL 7) ALKALINE PHOSPHATASE (test 129 U/L code = [...] INTERPRETATION HEPATITIS B: (NOTE) (test code = 64125) INTERPRETATION HEPATITIS C: (NOTE) (test code = 93803) HEPATITIS PROFILE (A,B,C)2019-05-25 00:00:00 Test Item Value [...] INTERPRETATION HEPATITIS B: (NOTE) (test code = 03995) INTERPRETATION HEPATITIS C: (NOTE) (test code = 03584) HIV AB/AG COMBO RFLX [id number] 00:00:00 Test Item Value Reference Range Interpretation Comments HIV 1/2 4TH GEN, RFLX CONF (test NON-REACTIVE code = 3514) HIV AB/AG COMBO RFLX [id number] 00:00:00 Test Item Value Reference Range Interpretation Comments HIV 1/2 4TH GEN, RFLX CONF (test NON-REACTIVE code = 3514) DRUG ABUSE PANEL 10 WITH [id number] 00:00:00 Test Item Value Reference Range Interpretation Comments AMPHETAMINES (test code = NEGATIVE 3201) BARBITURATES (test code = NEGATIVE 3202) BENZODIAZEPINES (test code SEE REFLEX TESTING = 3203) CANNABINOIDS (test code = NEGATIVE 3204) COCAINE METABOLITE (test NEGATIVE code = 3205) OPIATES (test code = 3209) NEGATIVE OXYCODONE (test code = NEGATIVE 79526) PHENCYCLIDINE (test code = NEGATIVE 3210) METHADONE (test code = NEGATIVE 3207) BUPRENORPHINE (test code = SEE REFLEX TESTING 57490) DRUG ABUSE PANEL 10 WITH [id number] 00:00:00 Test Item Value Reference Range Interpretation Comments AMPHETAMINES (test code = NEGATIVE 3201) BARBITURATES (test code = NEGATIVE 3202) BENZODIAZEPINES (test code SEE REFLEX TESTING = 3203) CANNABINOIDS (test code = NEGATIVE 3204) COCAINE METABOLITE (test NEGATIVE code = 3205) OPIATES (test code = 3209) NEGATIVE OXYCODONE (test code = NEGATIVE 22299) PHENCYCLIDINE (test code = NEGATIVE 3210) METHADONE (test code = NEGATIVE 3207) BUPRENORPHINE (test code = SEE REFLEX TESTING 53150) CBC W/AUTO [id number] 00:00:00 Test Item Value Reference Range Interpretation [...] code = 1015) 320 K/UL CBC W/AUTO [id number] 00:00:00 Test Item Value Reference Range Interpretation [...] code = 1015) 320 K/UL CBC W/AUTO [id number] 00:00:00 Test Item Value Reference Range Interpretation [...] code = 1015) 320 K/UL COMPREHENSIVE METABOLIC [id number] 00:00:00 Test Item Value Reference Range Interpretation Comments GLUCOSE (test code = 2217) 121 MG/DL BUN (test code = 2208) 25 MG/DL CREATININE (test code = 2214) 1.01 MG/DL eGFR AMER. (test code 75 ML/MIN/1.73 = 43944) eGFR NON- AMER. (test 64 ML/MIN/1.73 code = 27200) CALC BUN/CREAT (test code = 25 RATIO [...] code = 2219) 11 U/L COMPREHENSIVE METABOLIC [id number] 00:00:00 Test Item Value Reference Range Interpretation Comments GLUCOSE (test code = 2217) 121 MG/DL BUN (test code = 2208) 25 MG/DL CREATININE (test code = 2214) 1.01 MG/DL eGFR AMER. (test code 75 ML/MIN/1.73 = 73320) eGFR NON- AMER. (test 64 ML/MIN/1.73 code = 15468) CALC BUN/CREAT (test code = 25 RATIO [...] INTERPRETATION HEPATITIS B: (NOTE) (test code = 64066) INTERPRETATION HEPATITIS C: (NOTE) (test code = 54938) HEPATITIS PROFILE (A,B,C)2019-05-25 00:00:00 Test Item Value [...] INTERPRETATION HEPATITIS B: (NOTE) (test code = 13836) INTERPRETATION HEPATITIS C: (NOTE) (test code = 85363) HIV AB/AG COMBO RFLX [id number] 00:00:00 Test Item Value Reference Range Interpretation Comments HIV 1/2 4TH GEN, RFLX CONF (test NON-REACTIVE code = 3514) HIV AB/AG COMBO RFLX [id number] 00:00:00 Test Item Value Reference Range Interpretation Comments HIV 1/2 4TH GEN, RFLX CONF (test NON-REACTIVE code = 3514) DRUG ABUSE PANEL 10 WITH [id number] 00:00:00 Test Item Value Reference Range Interpretation Comments AMPHETAMINES (test code = NEGATIVE 3201) BARBITURATES (test code = NEGATIVE 3202) BENZODIAZEPINES (test code SEE REFLEX TESTING = 3203) CANNABINOIDS (test code = NEGATIVE 3204) COCAINE METABOLITE (test NEGATIVE code = 3205) OPIATES (test code = 3209) NEGATIVE OXYCODONE (test code = NEGATIVE 88795) PHENCYCLIDINE (test code = NEGATIVE 3210) METHADONE (test code = NEGATIVE 3207) BUPRENORPHINE (test code = SEE REFLEX TESTING 17235) DRUG ABUSE PANEL 10 WITH [id number] 00:00:00 Test Item Value Reference Range Interpretation Comments AMPHETAMINES (test code = NEGATIVE 3201) BARBITURATES (test code = NEGATIVE 3202) BENZODIAZEPINES (test code SEE REFLEX TESTING = 3203) CANNABINOIDS (test code = NEGATIVE 3204) COCAINE METABOLITE (test NEGATIVE code = 3205) OPIATES (test code = 3209) NEGATIVE OXYCODONE (test code = NEGATIVE 63324) PHENCYCLIDINE (test code = NEGATIVE 3210) METHADONE (test code = NEGATIVE 3207) BUPRENORPHINE (test code = SEE REFLEX TESTING 64833) CBC W/AUTO [id number] 00:00:00 Test Item Value Reference Range Interpretation [...] code = 1015) 320 K/UL CBC W/AUTO [id number] 00:00:00 Test Item Value Reference Range Interpretation [...] code = 1015) 320 K/UL CBC W/AUTO [id number] 00:00:00 Test Item Value Reference Range Interpretation [...] code = 1015) 320 K/UL COMPREHENSIVE METABOLIC [id number] 00:00:00 Test Item Value Reference Range Interpretation Comments GLUCOSE (test code = 2217) 121 MG/DL BUN (test code = 2208) 25 MG/DL CREATININE (test code = 2214) 1.01 MG/DL eGFR AMER. (test code 75 ML/MIN/1.73 = 55422) eGFR NON- AMER. (test 64 ML/MIN/1.73 code = 99112) CALC BUN/CREAT (test code = 25 RATIO [...] code = 2219) 11 U/L COMPREHENSIVE METABOLIC [id number] 00:00:00 Test Item Value Reference Range Interpretation Comments GLUCOSE (test code = 2217) 121 MG/DL BUN (test code = 2208) 25 MG/DL CREATININE (test code = 2214) 1.01 MG/DL eGFR AMER. (test code 75 ML/MIN/1.73 = 21968) eGFR NON- AMER. (test 64 ML/MIN/1.73 code = 69981) CALC BUN/CREAT (test code = 25 RATIO [...] INTERPRETATION HEPATITIS B: (NOTE) (test code = 26296) INTERPRETATION HEPATITIS C: (NOTE) (test code = 42974) HEPATITIS PROFILE (A,B,C)2019-05-25 00:00:00 Test Item Value [...] INTERPRETATION HEPATITIS B: (NOTE) (test code = 75261) INTERPRETATION HEPATITIS C: (NOTE) (test code = 98963) HIV AB/AG COMBO RFLX [id number] 00:00:00 Test Item Value Reference Range Interpretation Comments HIV 1/2 4TH GEN, RFLX CONF (test NON-REACTIVE code = 3514) HIV AB/AG COMBO RFLX [id number] 00:00:00 Test Item Value Reference Range Interpretation Comments HIV 1/2 4TH GEN, RFLX CONF (test NON-REACTIVE code = 3514) DRUG ABUSE PANEL 10 WITH [id number] 00:00:00 Test Item Value Reference Range Interpretation Comments AMPHETAMINES (test code = NEGATIVE 3201) BARBITURATES (test code = NEGATIVE 3202) BENZODIAZEPINES (test code SEE REFLEX TESTING = 3203) CANNABINOIDS (test code = NEGATIVE 3204) COCAINE METABOLITE (test NEGATIVE code = 3205) OPIATES (test code = 3209) NEGATIVE OXYCODONE (test code = NEGATIVE 45549) PHENCYCLIDINE (test code = NEGATIVE 3210) METHADONE (test code = NEGATIVE 3207) BUPRENORPHINE (test code = SEE REFLEX TESTING 78715) DRUG ABUSE PANEL 10 WITH [id number] 00:00:00 Test Item Value Reference Range Interpretation Comments AMPHETAMINES (test code = NEGATIVE 3201) BARBITURATES (test code = NEGATIVE 3202) BENZODIAZEPINES (test code SEE REFLEX TESTING = 3203) CANNABINOIDS (test code = NEGATIVE 3204) COCAINE METABOLITE (test NEGATIVE code = 3205) OPIATES (test code = 3209) NEGATIVE OXYCODONE (test code = NEGATIVE 44473) PHENCYCLIDINE (test code = NEGATIVE 3210) METHADONE (test code = NEGATIVE 3207) BUPRENORPHINE (test code = SEE REFLEX TESTING 42101)
[2022-12-12] MEDS ORDERED: ONDANSETRON 4 MG/2 ML VIAL ONE (15:07)
[2022-12-12] MEDS ORDERED: FAMOTIDINE 20 MG/2 ML VIAL IV ONE (15:07)
[2022-12-12] MEDS ORDERED: NA CHLORIDE 0.9% 1,000 ML ONE (15:07)
[2022-12-12 15:11] LABS: Absolute Lymphocytes (CBC) 2.4 K/uL (0.7-4.9); Hematocrit 40.5 % (36.0-45.0); Lymphocytes % 22.4 % (15.3-44.8); MPV 7.2 fL (7.6-11.3); Platelets 236 thou/uL (152-406); RBC Red Blood Cell Count 4.77 M/uL (3.86-4.86)
[2022-12-12 15:23] LABS: Specific Gravity > 1.030 (1.005-1.030); Urine Bacteria 20-50 /HPF (<20); Urine Bilirubin NEGATIVE (Negative); Urine Blood Negative (Negative); Urine Clarity Extremely Turbid (Clear); Urine Color Yellow (Yellow); Urine Glucose NEGATIVE (Negative); Urine Mucus 3+ /HPF (None Seen); Urine Protein 2+ (Negative); Urine RBC <5 /HPF (None Seen); Urine Urobilinogen Normal (Normal); Urine WBC Clump Rare /HPF (None Seen); Urine pH 5.5 (5.0-7.0)
[2022-12-12 15:33] LABS: ALT/SGPT 11 U/L (13-56); Albumin 2.8 g/dL (3.4-5.0); Alkaline Phosphatase 106 U/L (45-117); BUN Blood Urea Nitrogen 25 mg/dL (7-18); Bicarbonate 23 mEq/L (21-32); Bilirubin Total 0.3 mg/dL (0.2-1.0); Glomerular Filtration Rate 56 ml/min (=/>90); Glucose Level 123 mg/dL (74-106); Lipase 14 U/L (13-75); Potassium 3.6 mEq/L (3.5-5.1); Protein, Total 7.6 g/dL (6.4-8.2); Sodium Level 135 mEq/L (136-145)
[2022-12-12 15:34] LABS: SARS-CoV-2 Antigen Rapid Res Negative (Negative)
[2022-12-12 15:34] LABS: AST/SGOT < 3 U/L (15-37)
--- NOTE | 2022-12-12 15:40 | RAD REPORT ---
EXAM DESCRIPTION: RAD - Chest Single View - 12/12/2022 3:22 pm CLINICAL HISTORY: MALAISE Chest pain. COMPARISON: Chest Single View dated 10/31/2022; Chest Single View dated 11/28/2021; Chest Single View dated 10/26/2021; Chest Single View dated 10/05/2019; Abdomen Pelvis W Contrast dated 07/18/2022; Abdo men Pelvis W Contrast dated 06/17/2022 FINDINGS: Portable technique limits examination quality. The lungs are grossly clear. The heart is moderately enlarged. No displaced fractures.Prominent soft tissue density is seen along the right cardiac shadow. Consider CT chest imaging for further evaluati on.
--- NOTE | 2022-12-12 15:44 | EDPHYS ---
Physician Documentation [facility] Name: Tabatha Chambers Age: 57 yrs Sex: Female : 1965 Arrival Date: 12/12/2022 Time: 14:37 Bed 14 Private MD: ED Physician Rickie Alcocer HPI: 12/12 14:40 This 57 yrs old Female presents to ER via Ambulatory with complaints of jh7 fatigue, N/V/D, runny nose. 14:40 57-year-old female presents to the ER for fatigue, runny nose, and N/V/D for 4 days. jh7 Denies fever, shortness of breath, and chest pain.. 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 - Social history:: Smoking status: Patient denies any tobacco usage or history of. ROS: 14:40 Eyes: Negative for injury, pain, redness, and discharge, Cardiovascular: Negative for jh7 chest pain, palpitations, and edema, Respiratory: Negative for shortness of breath, cough, wheezing, and pleuritic chest pain, Back: Negative for injury and pain, MS/Extremity: Negative for injury and deformity, Skin: Negative for injury, rash, and discoloration, Neuro: Negative for headache, weakness, numbness, tingling, and seizure, 14:40 Constitutional: Positive for fatigue, malaise, 14:40 ENT: Positive for nasal discharge, 14:40 Abdomen/GI: Positive for nausea, vomiting, and diarrhea, abdominal cramps, Negative for abdominal pain, 14:40 All other systems are negative, Exam: 14:40 Constitutional: This is a well developed, well nourished patient who is awake, alert, jh7 and in no acute distress. Head/Face: Normocephalic, atraumatic. Neck: Trachea midline, no thyromegaly or masses palpated, and no cervical lymphadenopathy. Supple, full range of motion without nuchal rigidity, or vertebral point tenderness. No Meningismus. Cardiovascular: Regular rate and rhythm with a normal S1 and S2. No gallops, murmurs, or rubs. Normal PMI, no JVD. No pulse deficits. Respiratory: Lungs have equal breath sounds bilaterally, clear to auscultation and percussion. No rales, rhonchi or wheezes noted. No increased work of breathing, no retractions or nasal flaring. Abdomen/GI: Soft, non-tender, with normal bowel sounds. No distension or tympany. No guarding or rebound. No evidence of tenderness throughout. Skin: Warm, dry with normal turgor. Normal color with no rashes, no lesions, and no evidence of cellulitis. MS/ Extremity: Pulses equal, no cyanosis. Neurovascular intact. Full, normal range of motion. Neuro: Awake and alert, GCS 15, oriented to person, place, time, and situation. Motor strength 5/5 in all extremities. Sensory grossly intact. Normal gait. Vital Signs: 14:46 BP 93 / 62; Pulse 76; Resp 17; Temp 97.8; Pulse Ox 94% on R/A; Weight 125.65 kg; Height ll1 5 ft. 4 in. ; Pain 8/10; 15:39 BP 102 / 63; Pulse 74; Resp 14; Pulse Ox 100% on R/A; mb9 14:46 Body Mass Index 47.55 (125.65 kg, 162.56 cm) ll1 14:46 Pain Scale: Adult ll1 MDM: 14:[address] [facility] 15:50 Data reviewed: vital signs, nurses notes, lab test result(s). I considered the [facility] following discharge prescriptions or medication management in the emergency department Medications were administered in the Emergency Department. See MAR. Care significantly affected by the following chronic conditions: Hypertension. Counseling: I had a detailed discussion with the patient and/or guardian regarding the historical points, exam findings, and any diagnostic results supporting the discharge/admit diagnosis, to return to the emergency department if symptoms worsen or persist or if there are any questions or concerns that arise at home. Response to treatment: the patient's symptoms have markedly improved after treatment. 12/12 14:50 Order name: CBC with Diff; Complete Time: 15:25 [facility] 12/12 14:50 Order name: CMP; Complete Time: 15:36 [facility] 12/12 14:50 Order name: Lipase; Complete Time: 15:36 [facility] 12/12 14:50 Order name: Urinalysis w/ reflexes; Complete Time: 15:25 [facility] 12/12 14:50 Order name: SARS RAPID; Complete Time: 15:36 [facility] 12/12 14:50 Order name: Flu; Complete Time: 15:42 [facility] 12/12 14:51 Order name: XRAY Chest (1 view); Complete Time: 15:42 [facility] 12/12 14:50 Order name: IV Saline Lock; Complete Time: 15:01 [facility] 12/12 14:50 Order name: Labs collected and sent; Complete Time: 15:01 [facility] Administered Medications: 15:00 Drug: NS 0.9% IV 1000 ml IV at 1 bolus Per protocol; 1000 mL bolus Route: IV; Rate: 1 mb9 bolus; Site: left antecubital; 16:13 Follow up: Response: No adverse reaction; IV Status: Completed infusion mb9 15:00 Drug: Famotidine IVP 20 mg IVP once; dilute with 10 mL 0.9% NaCl; give over 2 minutes mb9 Route: IVP; Site: left antecubital; 15:39 Follow up: Response: No adverse reaction mb9 15:03 Drug: Ondansetron IVP 4 mg IVP once; over 2 minutes Route: IVP; Site: left antecubital; mb9 15:39 Follow up: Response: No adverse reaction mb9 15:39 Drug: Rocephin IV 1 grams IV at 1 calculated rate once; Given slow IV push per pharmacy mb9 instructions Route: IV; Rate: 1 calculated rate; Site: left antecubital; 16:13 Follow up: Response: No adverse reaction; IV Status: Completed infusion mb9 Disposition: 16:44 Co-signature as Attending Physician, Rickie Alcocer MD I reviewed the patient's care rt provided by the Advanced Practice Provider and agree with the diagnosis and treatment plan. Disposition Summary: 12/12/22 15:44 Discharge Ordered Notes: Location: Home [facility] Problem: [facility] Symptoms: have improved [facility] Condition: Stable [facility] Diagnosis - Viral gastroenteritis [facility] Followup: [facility] - With: Private Physician - When: 2 - 3 days - Reason: Recheck today's complaints Discharge Instructions: - Discharge Summary Sheet [facility] - Nausea and Vomiting, Adult [facility] - Viral Gastroenteritis, Adult [facility] Forms: - Medication Reconciliation Form [facility] - Thank You Letter [facility] - Patient Portal Instructions [facility] - Leadership Thank You Letter [facility] Prescriptions: - ondansetron 4 mg Oral Tablet,disintegrating - take 1 tablet ORAL route every 4-6 hours As needed; 20 tablet; Refills: 0, [facility] Product Selection Permitted - Levsin 0.125 mg Oral Tablet - take 1 tablet ORAL route every 8 hours; 30 tablet; Refills: 0, Product [facility] Selection Permitted Signatures: Dispatcher [employer] Chelsi Castanon, RN RN ll1 Stacy Lemons, LOT BOSS LOT BOSS 7 Araceli Pelaez RN RN mb9 Rickie Alcocer MD MD rt
--- NOTE | 2022-12-12 15:44 | ER ---
Nurse's Notes [facility] Name: Tabatha Chambers Age: 57 yrs Sex: Female : 1965 Arrival Date: 12/12/2022 Time: 14:37 Bed 14 Private MD: Diagnosis: Viral gastroenteritis Presentation: 12/12 14:46 Chief complaint: Patient states: Weakness, nausea, diarrhea since Wednesday. Coronavirus ll1 screen: Client denies travel out of the [place] in the last 14 days. diarrhea, fatigue, nausea, Client presents with at least one sign or symptom that may indicate coronavirus-19. Standard/surgical mask placed on the client. Ebola Screen: Patient denies travel to an Ebola-affected area in the 21 days before illness onset. Initial Sepsis Screen: Does the patient meet any 2 criteria? No. Patient's initial sepsis screen is negative. Does the patient have a suspected source of infection? No. Patient's initial sepsis screen is negative. Risk Assessment: Do you want to hurt yourself or someone else? Patient reports no desire to harm self or others. Onset of symptoms was December 05, 2022. 14:46 Method Of Arrival: Ambulatory ll1 14:46 Acuity: VERO 3 ll1 Triage Assessment: 14:48 General: Appears uncomfortable, ill, Behavior is calm, cooperative, appropriate for 3 age. Pain: Complains of pain in back Pain currently is 8 out of 10 on a pain scale. Quality of pain is described as aching. Neuro: Reports weakness. Cardiovascular: Reports fatigue, nausea. GI: Reports diarrhea, nausea. Musculoskeletal: Reports pain in back. 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 - Social history:: Smoking status: Patient denies any tobacco usage or history of. Screenin:43 [facility] ED Fall Risk Assessment (Adult) History of falling in the last 3 months, mb9 including since admission No falls in past 3 months (0 pts) Confusion or Disorientation No (0 pts) Intoxicated or Sedated No (0 pts) Impaired Gait No (0 pts) Mobility Assist Device Used No (0 pt) Altered Elimination No (0 pt) Score/Fall Risk Level 0 - 2 = Low Risk Oriented to surroundings, Maintained a safe environment, Educated pt \T\ family on fall prevention, incl call for assistance when getting out of bed. Abuse screen: Denies threats or abuse. Nutritional screening: No deficits noted. Tuberculosis screening: No symptoms or risk factors identified. Assessment: 14:50 General: Appears uncomfortable, Behavior is calm, cooperative. Pain: Denies pain. mb9 Neuro: Taylor Agitation-Sedation Scale (RASS): 0 - Alert and Calm Level of Consciousness is awake, alert, obeys commands, Oriented to person, place, time, situation, Appropriate for age Reports fatigue . Cardiovascular: Heart tones S1 S2 present Patient's skin is warm and dry. Respiratory: Airway is patent Respiratory effort is even, unlabored, Respiratory pattern is regular, symmetrical, Breath sounds are clear bilaterally. GI: Abdomen is round obese, Bowel sounds present X 4 quads. Abd is soft and non tender X 4 quads. Reports diarrhea, nausea. : No signs and/or symptoms were reported regarding the genitourinary system. EENT: No signs and/or symptoms were reported regarding the EENT system. Derm: Skin is pink, warm \T\ dry. Musculoskeletal: Range of motion: intact in all extremities, Reports weakness in entire body. 16:00 Reassessment: Patient and/or family updated on plan of care and expected duration. Pain mb9 level reassessed. Patient is alert, oriented x 3, equal unlabored respirations, skin warm/dry/pink. Patient states feeling better. Patient states symptoms have improved. Vital Signs: 14:46 BP 93 / 62; Pulse 76; Resp 17; Temp 97.8; Pulse Ox 94% on R/A; Weight 125.65 kg; Height ll1 5 ft. 4 in. ; Pain 8/10; 15:39 BP 102 / 63; Pulse 74; Resp 14; Pulse Ox 100% on R/A; mb9 14:46 Body Mass Index 47.55 (125.65 kg, 162.56 cm) ll1 14:46 Pain Scale: Adult ll1 ED Course: 14:37 Patient arrived in ED. rg4 14:39 [facility] jh7 14:39 Rickie Alcocer MD is Attending Physician. jh7 14:39 Arm band placed on Patient placed in an exam room, on a stretcher. ll1 14:41 Araceli Pelaez, MARION is Primary Nurse. mb9 14:44 Placed in gown. Bed in low position. Call light in reach. Side rails up X 1. Client mb9 placed on continuous cardiac and pulse oximetry monitoring. NIBP monitoring applied. 14:48 Triage completed. ll1 14:51 No provider procedures requiring assistance completed. mb9 15:05 Urinalysis w/ reflexes Sent. mb9 15:06 Flu Sent. mb9 15:06 SARS RAPID Sent. mb9 15:24 XRAY Chest (1 view) In Process Unspecified. EDMS 16:13 IV discontinued, intact, bleeding controlled, No redness/swelling at site. Pressure mb9 dressing applied. Administered Medications: 15:00 Drug: NS 0.9% IV 1000 ml IV at 1 bolus Per protocol; 1000 mL bolus Route: IV; Rate: 1 mb9 bolus; Site: left antecubital; 16:13 Follow up: Response: No adverse reaction; IV Status: Completed infusion mb9 15:00 Drug: Famotidine IVP 20 mg IVP once; dilute with 10 mL 0.9% NaCl; give over 2 minutes mb9 Route: IVP; Site: left antecubital; 15:39 Follow up: Response: No adverse reaction mb9 15:03 Drug: Ondansetron IVP 4 mg IVP once; over 2 minutes Route: IVP; Site: left antecubital; mb9 15:39 Follow up: Response: No adverse reaction mb9 15:39 Drug: Rocephin IV 1 grams IV at 1 calculated rate once; Given slow IV push per pharmacy mb9 instructions Route: IV; Rate: 1 calculated rate; Site: left antecubital; 16:13 Follow up: Response: No adverse reaction; IV Status: Completed infusion mb9 Medication: 14:43 VIS not applicable for this client. mb9 Outcome: 15:44 Discharge ordered by . jh7 16:13 Discharged to home ambulatory, mb9 16:13 Condition: stable 16:13 Discharge instructions given to patient, Instructed on discharge instructions, follow up and referral plans. Demonstrated understanding of instructions, follow-up care, medications, Prescriptions given X 2, 16:13 Patient left the ED. mb9 Signatures: Dispatcher [employer] EDSmiley Pandya rg4 Chelsi Patel RN RN ll1 Stacy Lemons FNP [employer] SERVICES REPRESENTATIVE jh7 Araceli Pelaez RN RN mb9
[2022-12-12] MEDS ORDERED: CEFTRIAXONE 1000 MG/VIAL ONE (15:48)
[2022-12-12 16:35] VITALS: TEMP 97.8
[2022-12-12 16:39] VITALS: BP 102/63; O2SAT 100
== END 2022-12-12 16:13 | disposition home or self-care (01) ==
LOC: ER 14:37
DX: A08.4 Viral intestinal infection, unspecified (principal); R53.83 Other fatigue; R19.7 Diarrhea, unspecified; I10 Essential (primary) hypertension; F20.9 Schizophrenia, unspecified; Z20.822 Contact with and (suspected) exposure to COVID-19
CPT/HCPCS: 96365; 96361; 85025; 81001; 36415; 83690; 80053; 87804 ×2; 71045; 96375; 99284; 87811; J2405; J7030; J0696

== ENCOUNTER → 2023-04-02 | Emergency (ER) | payer OTHER ==
[~2023-04-02] MED LIST: Ringers Lactate 1,000 ML IV ONE
[2023-04-02 11:16] LABS: Absolute Lymphocytes (CBC) 2.4 K/uL (0.7-4.9); Hematocrit 38.7 % (36.0-45.0); Lymphocytes % 33.4 % (15.3-44.8); MPV 7.1 fL (7.6-11.3); Platelets 285 thou/uL (152-406)
[2023-04-02 12:21] LABS: Potassium 4.1 mEq/L (3.5-5.1)
--- NOTE | 2023-04-02 12:41 | EDPHYS ---
Physician Documentation [facility] Name: Tabatha Chambers Age: 57 yrs Sex: Female : 1965 Arrival Date: 04/02/2023 Time: 10:46 Bed 19 Private MD: ED Physician Miguel Pollard HPI: 04/02 12:40 This 57 yrs old Female presents to ER via EMS with complaints of DROWSY. ms3 12:40 57-year-old female presents via [facility] for seeing black spots, not feeling like ms3 herself, tingling around her lips, and seeing her phone on her TV. Patient states she is having whole body numbness. Patient states 3 to 4 years ago she had seizures and similar symptoms. Patient states she took her medications this morning. Patient denies any alleviating or inciting factors. Historical: - Allergies: 10:50 No Known Drug Allergies; bp - Home Meds: 10:50 Alprazolam Oral [Active]; bp - PMHx: 10:50 Bipolar disorder; Schizophrenia; Seizures; Hypertension; UTI; bp - PSHx: 10:50 ankle SX; Cholecystectomy; tubes tied; bp - Immunization history:: Adult Immunizations up to date. - Social history:: Smoking status: Patient denies any tobacco usage or history of. ROS: 12:40 Constitutional: Negative for fever, and chills. ENT: Negative for injury, pain, and ms3 discharge, Cardiovascular: Negative for chest pain, and palpitations. Respiratory: Negative for shortness of breath, cough, wheezing, and pleuritic chest pain, Abdomen/GI: Negative for abdominal pain, nausea, vomiting, diarrhea, and constipation, MS/Extremity: Negative for injury and deformity, 12:40 Neuro: Positive for numbness, tingling, visual changes, Exam: 12:40 Constitutional: This is a well developed, well nourished patient who is awake, alert, ms3 and in no acute distress. Head/Face: Normocephalic, atraumatic. Neck: Trachea midline, no cervical lymphadenopathy. Supple, full range of motion without nuchal rigidity, or vertebral point tenderness. No Meningismus. Chest/axilla: Normal chest wall appearance and motion. Nontender with no deformity. Cardiovascular: Regular rate and rhythm with a normal S1 and S2. No gallops, murmurs, or rubs. Normal PMI, no JVD. No pulse deficits. Respiratory: Lungs have equal breath sounds bilaterally, clear to auscultation and percussion. No rales, rhonchi or wheezes noted. No increased work of breathing, no retractions or nasal flaring. Abdomen/GI: Soft, non-tender, with normal bowel sounds. No distension or tympany. No guarding or rebound. No evidence of tenderness throughout. Skin: Warm, dry with normal turgor. Normal color with no rashes, no lesions, and no evidence of cellulitis. MS/ Extremity: Pulses equal, no cyanosis. Neurovascular intact. Full, normal range of motion. Neuro: Awake and alert, GCS 15, oriented to person, place, time, and situation. Cranial nerves II-XII grossly intact. Motor strength 5/5 in all extremities. Sensory grossly intact. Cerebellar exam normal. Normal gait. Vital Signs: 10:49 BP 104 / 74; Pulse 71; Resp 16; Temp 98; Pulse Ox 97% ; bp 12:22 BP 93 / 61; Pulse 61; Resp 16; Temp 98; Pulse Ox 97% ; bp 13:15 BP 103 / 61; Pulse 58; Resp 16; Pulse Ox 100% ; bp NIH Stroke Scale Scores: 12:40 NIHSS Score: 0 ms3 MDM: 10:54 Patient medically screened. ms3 12:40 Differential Diagnosis: CVA, electrolyte abnormality, hypoglycemia, volume depletion. ms3 Data reviewed: vital signs, nurses notes, and as a result, I will discharge patient. I considered the following discharge prescriptions or medication management in the emergency department Medications were administered in the Emergency Department. See MAR. Historians other than the Patient: EMS: [facility]. Care significantly affected by the following chronic conditions: Hypertension. Counseling: I had a detailed discussion with the patient and/or guardian regarding the historical points, exam findings, and any diagnostic results supporting the discharge/admit diagnosis, lab results, the need for outpatient follow up, to return to the emergency department if symptoms worsen or persist or if there are any questions or concerns that arise at home. Special discussion: I discussed with the patient/guardian in detail that at this point there is no indication for admission to the hospital. It is understood, however, that if the symptoms persist or worsen the patient needs to return immediately for re-evaluation. ED course: Discussed labs with patient. Patient to follow-up with primary care physician in 2 to 3 days. Patient understands agrees with plan. All questions were answered. Return precautions discussed include worsening symptoms, or any other concerns. 04/02 10:53 Order name: CBC with Diff; Complete Time: 12:29 ms3 04/02 10:53 Order name: BMP; Complete Time: 12:29 ms3 Administered Medications: 11:11 Drug: Lactated Ringers Solution IV 1000 ml IV at 150 ml/hr continuous Route: IV; Rate: mb9 150 ml/hr; Site: left antecubital; 13:19 Follow up: IV Status: Completed infusion; IV Intake: 300ml bp Disposition Summary: 04/02/23 12:40 Discharge Ordered Notes: Location: Home ms3 Condition: Stable ms3 Diagnosis - Paresthesia of skin ms3 Followup: ms3 - With: James Patterson DO - When: 2 - 3 days - Reason: Recheck today's complaints Discharge Instructions: - Discharge Summary Sheet ms3 - Paresthesia ms3 Forms: - Medication Reconciliation Form ms3 - Thank You Letter ms3 - Antibiotic Education ms3 - Prescription Opioid Use ms3 - Patient Portal Instructions ms3 - Leadership Thank You Letter ms3 NIH Stroke Scale - NIH Stroke Score Date: 04/02/2023 Time: 12:40 Total Score = 0 10. Dysarthria (speech clarity - read or repeat words) - 0(Normal) 11. Extinction and Inattention (visual/tactile/auditory/spatial/personal) - 0(No abnormality) 1a. Level of Consciousness (LOC) - 0(Alert) 1b. Level of Consciousness (LOC) (Month \T\ Age) - 0(Both) 1c. LOC Commands (Open \T\ Closes Eyes/Broadcast Correspondent) - 0(Both) 2. Best Gaze (Lateral Gaze Paresis) - 0(Normal) 3. Visual Field Loss - 0(No visual loss) 4. Facial Palsy - 0(Normal) 5a. Left Arm: Motor (10-second hold) - 0(No drift) 5b. Right Arm: Motor (10-second hold) - 0(No drift) 6a. Left Leg: Motor (5-second hold - always test supine) - 0(No drift) 6b. Right Leg: Motor (5-second hold - always test supine) - 0(No drift) 7. Limb Ataxia (finger/nose \T\ heel/kent - test with eyes open) - 0(Absent) 8. Sensory Loss (pinprick arms/legs/face) - 0(Normal) 9. Best Language: Aphasia (description/naming/reading) - 0(No aphasia) Initials: ms3 Signatures: Dispatcher [employer] Anatoly Casanova RN RN Miguel Phan DO DO ms3 Araceli Pelaez RN RN mb9
--- NOTE | 2023-04-02 12:41 | ER ---
Nurse's Notes [facility] Name: Tabatha Chambers Age: 57 yrs Sex: Female : 1965 Arrival Date: 04/02/2023 Time: 10:46 Bed 19 Private MD: Diagnosis: Paresthesia of skin Presentation: 04/02 10:49 Chief complaint: EMS states: BECAME LETHARGIC WHILE ON PHONE WITH [employer]ANCE [employer]. bp Coronavirus screen: At this time, the client does not indicate any symptoms associated with coronavirus-19. Ebola Screen: No symptoms or risks identified at this time. Initial Sepsis Screen: Does the patient meet any 2 criteria? No. Patient's initial sepsis screen is negative. Does the patient have a suspected source of infection? No. Patient's initial sepsis screen is negative. Risk Assessment: Do you want to hurt yourself or someone else? Patient reports no desire to harm self or others. Onset of symptoms was April 02, 2023 at 09:15. 10:49 Method Of Arrival: EMS: [facility] bp 10:49 Acuity: VERO 3 bp Triage Assessment: 11:00 General: Appears in no apparent distress. Behavior is calm, cooperative, appropriate bp for age. Pain: Denies pain. Neuro: Reports weakness in left arm. Historical: - Allergies: 10:50 No Known Drug Allergies; bp - Home Meds: 10:50 Alprazolam Oral [Active]; bp - PMHx: 10:50 Bipolar disorder; Schizophrenia; Seizures; Hypertension; UTI; bp - PSHx: 10:50 ankle SX; Cholecystectomy; tubes tied; bp - Immunization history:: Adult Immunizations up to date. - Social history:: Smoking status: Patient denies any tobacco usage or history of. Screenin:15 [facility] ED Fall Risk Assessment (Adult) History of falling in the last 3 months, bp including since admission No falls in past 3 months (0 pts). Abuse screen: Denies threats or abuse. Denies injuries from another. Nutritional screening: No deficits noted. Tuberculosis screening: No symptoms or risk factors identified. Assessment: 11:00 General: SEE TRIAGE NOTE. bp 13:15 Reassessment: PT DC HOME AMBULATORY WITH FAMILY. bp Vital Signs: 10:49 BP 104 / 74; Pulse 71; Resp 16; Temp 98; Pulse Ox 97% ; bp 12:22 BP 93 / 61; Pulse 61; Resp 16; Temp 98; Pulse Ox 97% ; bp 13:15 BP 103 / 61; Pulse 58; Resp 16; Pulse Ox 100% ; bp NIH Stroke Scale Scores: 12:40 NIHSS Score: 0 ms3 ED Course: 10:48 Patient arrived in ED. bp 10:50 Triage completed. bp 10:53 Miguel Pollard DO is Attending Physician. ms3 11:00 Arm band placed on. bp 11:11 BMP Sent. mb9 11:11 Inserted saline lock: 20 gauge in left antecubital area, using aseptic technique. mb9 12:21 Anatoly Mari, RN is Primary Nurse. bp 12:40 Jamse Patterson DO is Referral Physician. ms3 13:15 No provider procedures requiring assistance completed. IV discontinued, intact, bp bleeding controlled, No redness/swelling at site. Pressure dressing applied. 13:15 Patient has correct armband on for positive identification. bp Administered Medications: 11:11 Drug: Lactated Ringers Solution IV 1000 ml IV at 150 ml/hr continuous Route: IV; Rate: mb9 150 ml/hr; Site: left antecubital; 13:19 Follow up: IV Status: Completed infusion; IV Intake: 300ml bp Medication: 13:15 VIS not applicable for this client. bp Intake: 13:19 IV: 300ml; Total: 300ml. bp Outcome: 12:40 Discharge ordered by MD. ms3 13:15 Discharged to home ambulatory, bp 13:15 Condition: stable 13:15 Discharge instructions given to patient, Instructed on discharge instructions, follow up and referral plans. Demonstrated understanding of instructions, follow-up care, 13:19 Patient left the ED. bp NIH Stroke Scale - NIH Stroke Score Date: 04/02/2023 Time: 12:40 Total Score = 0 10. Dysarthria (speech clarity - read or repeat words) - 0(Normal) 11. Extinction and Inattention (visual/tactile/auditory/spatial/personal) - 0(No abnormality) 1a. Level of Consciousness (LOC) - 0(Alert) 1b. Level of Consciousness (LOC) (Month \T\ Age) - 0(Both) 1c. LOC Commands (Open \T\ Closes Eyes/Bench Molder) - 0(Both) 2. Best Gaze (Lateral Gaze Paresis) - 0(Normal) 3. Visual Field Loss - 0(No visual loss) 4. Facial Palsy - 0(Normal) 5a. Left Arm: Motor (10-second hold) - 0(No drift) 5b. Right Arm: Motor (10-second hold) - 0(No drift) 6a. Left Leg: Motor (5-second hold - always test supine) - 0(No drift) 6b. Right Leg: Motor (5-second hold - always test supine) - 0(No drift) 7. Limb Ataxia (finger/nose \T\ heel/kent - test with eyes open) - 0(Absent) 8. Sensory Loss (pinprick arms/legs/face) - 0(Normal) 9. Best Language: Aphasia (description/naming/reading) - 0(No aphasia) Initials: ms3 Signatures: Anatoly Mari, RN RN bp Miguel Pollard, DO DO ms3 Araceli Pelaez, RN RN mb9
[2023-04-02 14:12] VITALS: BP 103/61; TEMP 98; O2SAT 100
== END ==
LOC: ER 10:46
DX: R20.2 Paresthesia of skin (principal); R20.0 Anesthesia of skin; I10 Essential (primary) hypertension; F20.9 Schizophrenia, unspecified
CPT/HCPCS: 85025; 80048; 36415; J7120

== ENCOUNTER → 2023-04-05 | Emergency (ER) | payer OTHER ==
[~2023-04-05] MED LIST changes: +HYDROCODONE/APAP 5/325 MG TAB ONE; +ONDANSETRON 4 MG/2 ML VIAL ONE; -Ringers Lactate 1,000 ML IV ONE
[2023-04-05 10:22] LABS: Absolute Lymphocytes (CBC) 2.7 K/uL (0.7-4.9); Hematocrit 35.7 % (36.0-45.0); MPV 7.1 fL (7.6-11.3); Platelets 236 thou/uL (152-406)
--- NOTE | 2023-04-05 10:43 | RAD REPORT ---
EXAM DESCRIPTION: [place] Single View04/05/2023 10:20 am CLINICAL HISTORY: Weakness and nausea COMPARISON: December 2022 FINDINGS: The lungs appear clear of acute infiltrate. The heart is borderline enlarged IMPRESSION: No acute abnormalities displayed
[2023-04-05 11:15] LABS: ALT/SGPT 12 U/L (13-56); AST/SGOT 5 U/L (15-37); Albumin 2.6 g/dL (3.4-5.0); Alkaline Phosphatase 106 U/L (45-117); Bilirubin Total 0.2 mg/dL (0.2-1.0); Magnesium 1.9 mg/dL (1.6-2.4); Protein, Total 6.7 g/dL (6.4-8.2); Troponin High Sensitivity 5.4 pg/mL (<58.9)
[2023-04-05 11:16] LABS: Bilirubin Direct < 0.1 mg/dL (0-0.2); Bilirubin Indirect, Calculated ND mg/dL (0.2-0.8)
[2023-04-05 12:34] LABS: Urine Bacteria <20 /HPF (<20); Urine Bilirubin NEGATIVE (Negative); Urine Blood Negative (Negative); Urine Clarity Turbid (Clear); Urine Color Light-Yellow (Yellow); Urine Glucose NEGATIVE (Negative); Urine Protein TRACE (Negative); Urine RBC <5 /HPF (None Seen); Urine Urobilinogen Normal (Normal)
--- NOTE | 2023-04-05 15:01 | EDPHYS ---
Physician Documentation [facility] Name: Tabatha Chambers Age: 57 yrs Sex: Female : 1965 Arrival Date: 04/05/2023 Time: 10:02 Bed 7 Private MD: ED Physician Miguel Pollard HPI: 04/05 12:13 This 57 yrs old Female presents to ER via EMS with complaints of Diarrhea, ms3 General Weakness. 12:13 57-year-old female with past medical history of bipolar, hypertension, schizophrenia, ms3 seizures, urinary tract infection presents to the emergency department for generalized weakness has been ongoing for 1 week. Patient states she feels like "blah." Patient states she took her medications this morning and became dizzy. Patient states she saw what was on her phone showing up on her TV. Patient denies any alleviating or inciting factors. 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 - Social history:: Smoking status: Patient denies any tobacco usage or history of. ROS: 12:13 Neck: Negative for injury, pain, and swelling, Cardiovascular: Negative for chest pain, ms3 and palpitations. 12:13 Abdomen/GI: Negative for abdominal pain, nausea, vomiting, diarrhea, and constipation, MS/Extremity: Negative for injury and deformity, Skin: Negative for injury, rash, and discoloration, 12:13 Constitutional: Positive for Generalized weakness, Exam: 12:11 ECG was reviewed by the Attending Physician. ms3 12:13 Constitutional: This is a well developed, well nourished patient who is awake, alert, ms3 and in no acute distress. Head/Face: Normocephalic, atraumatic. Neck: Trachea midline, no cervical lymphadenopathy. Supple, full range of motion without nuchal rigidity, or vertebral point tenderness. No Meningismus. Chest/axilla: Normal chest wall appearance and motion. Nontender with no deformity. Cardiovascular: Regular rate and rhythm with a normal S1 and S2. No gallops, murmurs, or rubs. Normal PMI, no JVD. No pulse deficits. Respiratory: Lungs have equal breath sounds bilaterally, clear to auscultation and percussion. No rales, rhonchi or wheezes noted. No increased work of breathing, no retractions or nasal flaring. Abdomen/GI: Soft, non-tender, with normal bowel sounds. No distension or tympany. No guarding or rebound. No evidence of tenderness throughout. Skin: Warm, dry with normal turgor. Normal color with no rashes, no lesions, and no evidence of cellulitis. MS/ Extremity: Pulses equal, no cyanosis. Neurovascular intact. Full, normal range of motion. Vital Signs: 10:04 BP 96 / 58; Pulse 57; Resp 16; Temp 97.3; Pulse Ox 97% on R/A; Pain 6/10; ll1 10:21 BP 93 / 69; Pulse 57; ll1 12:36 BP 109 / 76; ll1 13:43 BP 114 / 84; Pulse 60; Resp 17; Pulse Ox 97% ; bd 14:26 BP 121 / 57; Pulse 62; Resp 18; Pulse Ox 100% on R/A; ph 15:18 BP 117 / 67; Pulse 61; Resp 18; Pulse Ox 100% on R/A; ll1 10:04 Pain Scale: Adult ll1 MDM: 10:11 Patient medically screened. ms3 12:13 Differential diagnosis: Nonspecific abd pain, Electrolyte abnormality vs hypovolemia. ms3 15:02 Data reviewed: vital signs, nurses notes, lab test result(s), and as a result, I will ms3 discharge patient. Consideration of Admission/Observation Escalation of care including admission/observation considered. Patient's symptoms improved with 1 L IVF bolus. I considered the following discharge prescriptions or medication management in the emergency department Medications were administered in the Emergency Department. See MAR. Care significantly affected by the following chronic conditions: Hypertension. Counseling: I had a detailed discussion with the patient and/or guardian regarding the historical points, exam findings, and any diagnostic results supporting the discharge/admit diagnosis, lab results, the need for outpatient follow up, to return to the emergency department if symptoms worsen or persist or if there are any questions or concerns that arise at home. ED course: Discussed labs with the patient. Patient states her symptoms have improved since arrival to the emergency department. Patient to follow-up with primary care physician 2 to 3 days. Patient understands and agrees with plan. All questions were answered. Return precautions discussed include worsening symptoms, or any other concerns. 04/05 10:06 Order name: CBC with Diff; Complete Time: 14:04 ms3 04/05 10:06 Order name: BMP; Complete Time: 14:04 ms3 04/05 10:06 Order name: Urinalysis w/ reflexes; Complete Time: 14:04 ms3 04/05 10:11 Order name: LFT's; Complete Time: 14:04 ms3 04/05 10:11 Order name: Magnesium; Complete Time: 14:04 ms3 04/05 10:11 Order name: Troponin HS; Complete Time: 14:04 ms3 04/05 12:38 Order name: Urine Culture EDVT 04/05 10:11 Order name: XRAY Chest (1 view); Complete Time: 14:04 ms3 04/05 10:11 Order name: EKG; Complete Time: 10:12 ms3 04/05 10:11 Order name: Cardiac monitoring; Complete Time: 10:20 ms3 04/05 10:11 Order name: EKG - Nurse/Tech; Complete Time: 10:20 ms3 04/05 10:11 Order name: IV Saline Lock; Complete Time: 10:15 ms3 04/05 10:11 Order name: Labs collected and sent; Complete Time: 10:15 ms3 04/05 10:11 Order name: O2 Per Protocol; Complete Time: 10:15 ms3 04/05 10:11 Order name: O2 Sat Monitoring; Complete Time: 10:15 ms3 04/05 14:04 Order name: PO challenge; Complete Time: 14:26 ms3 EC:11 Rate is 54 beats/min. Rhythm is regular. QRS [place] is Normal. IN interval is normal. QRS ms3 interval is normal. Clinical impression: Sinus bradycardia. Interpreted by me. Reviewed by me. Administered Medications: 10:20 Drug: Ondansetron IVP 4 mg IVP once; over 2 minutes Route: IVP; Site: left antecubital; ll1 15:20 Follow up: Response: No adverse reaction ll1 14:26 Drug: HYDROcodone-acetaminophen PO 5 mg-325 mg 1 tabs PO once Route: PO; ph 15:20 Follow up: Response: No adverse reaction; Pain is decreased; RASS: Alert and Calm (0) ll1 Disposition Summary: 04/05/23 15:01 Discharge Ordered Notes: Location: Home ms3 Condition: Stable ms3 Diagnosis - Diarrhea, unspecified ms3 - Dehydration ms3 - Muscle weakness (generalized) ms3 Followup: ms3 - With: James Patterson DO - When: 1 - 2 days - Reason: Recheck today's complaints Discharge Instructions: - Discharge Summary Sheet ms3 - Diarrhea, Adult ms3 - Weakness ms3 - Diarrhea, Adult, [id number] ms3 Forms: - Medication Reconciliation Form ms3 - Thank You Letter ms3 - Antibiotic Education ms3 - Prescription Opioid Use ms3 - Patient Portal Instructions ms3 - Leadership Thank You Letter ms3 Signatures: Dispatcher [employer] Isidra Granger RN RN ph Chelsi Patel RN RN ll1 Miguel Pollard, DO ms3
--- NOTE | 2023-04-05 15:01 | ER ---
Nurse's Notes [facility] Name: Tabatha Chambers Age: 57 yrs Sex: Female : 1965 Arrival Date: 04/05/2023 Time: 10:02 Bed 7 Private MD: Diagnosis: Diarrhea, unspecified;Dehydration;Muscle weakness (generalized) Presentation: 04/05 10:04 Chief complaint: Patient states: Still very weak and lethargic since her last visit two ll1 days ago. + diarrhea. Coronavirus screen: Client denies travel out of the [place] in the last 14 days. At this time, the client does not indicate any symptoms associated with coronavirus-19. Ebola Screen: Patient denies travel to an Ebola-affected area in the 21 days before illness onset. Initial Sepsis Screen: Does the patient meet any 2 criteria? No. Patient's initial sepsis screen is negative. Does the patient have a suspected source of infection? No. Patient's initial sepsis screen is negative. Risk Assessment: Do you want to hurt yourself or someone else? Patient reports no desire to harm self or others. Onset of symptoms was March 29, 2023. 10:04 Method Of Arrival: EMS ll1 10:04 Acuity: VERO 3 ll1 10:05 Chief complaint: EMS states: Initial BP 80's systolic BS 211. 20 L AC, 100 ml Bolus ll1 given. Triage Assessment: 10:06 General: Appears uncomfortable, ill, Behavior is cooperative, appropriate for age, ll1 listless. Pain: Complains of pain in back Pain currently is 6 out of 10 on a pain scale. Quality of pain is described as aching. GI: Reports cramping, diarrhea. Musculoskeletal: Reports pain in all over. 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 - Social history:: Smoking status: Patient denies any tobacco usage or history of. Screenin:19 [facility] ED Fall Risk Assessment (Adult) Score/Fall Risk Level 0 - 2 = Low Risk ll1 Oriented to surroundings, Maintained a safe environment, Educated pt \T\ family on fall prevention, incl call for assistance when getting out of bed, Hourly rounding (assess needs \T\ fall precautionary measures) done. Abuse screen: Denies threats or abuse. Nutritional screening: No deficits noted. Tuberculosis screening: No symptoms or risk factors identified. Assessment: 10:21 Reassessment: No changes from previously documented assessment. Patient and/or family ll1 updated on plan of care and expected duration. Pain level reassessed. Patient is alert, oriented x 3, equal unlabored respirations, skin warm/dry/pink. 11:07 Reassessment: No changes from previously documented assessment. Patient and/or family ll1 updated on plan of care and expected duration. Pain level reassessed. Patient is alert, oriented x 3, equal unlabored respirations, skin warm/dry/pink. 14:28 Reassessment: No changes from previously documented assessment. Patient and/or family ll1 updated on plan of care and expected duration. Pain level reassessed. Vital Signs: 10:04 BP 96 / 58; Pulse 57; Resp 16; Temp 97.3; Pulse Ox 97% on R/A; Pain 6/10; ll1 10:21 BP 93 / 69; Pulse 57; ll1 12:36 BP 109 / 76; ll1 13:43 BP 114 / 84; Pulse 60; Resp 17; Pulse Ox 97% ; bd 14:26 BP 121 / 57; Pulse 62; Resp 18; Pulse Ox 100% on R/A; ph 15:18 BP 117 / 67; Pulse 61; Resp 18; Pulse Ox 100% on R/A; ll1 10:04 Pain Scale: Adult ll1 ED Course: 10:03 Patient arrived in ED. ll1 10:04 Miguel Pollard DO is Attending Physician. ms3 10:05 Triage completed. ll1 10:05 Arm band placed on Patient placed in an exam room, on a stretcher. ll1 10:08 Chelsi Patel, MARION is Primary Nurse. ll1 10:22 XRAY Chest (1 view) In Process Unspecified. EDMS 10:26 EKG done, by ED staff, reviewed by Miguel Pollard DO. em1 10:30 Maintain EMS IV. Dressing intact. Good blood return noted. Site clean \T\ dry. Gauge \T\ ll 1 site: 20 G L AC. 12:35 Urinalysis w/ reflexes Sent. ll1 15:01 James Patterson DO is Referral Physician. ms3 15:19 No provider procedures requiring assistance completed. IV discontinued, intact, ll1 bleeding controlled, No redness/swelling at site. Pressure dressing applied. 15:20 Patient has correct armband on for positive identification. Bed in low position. Call ll1 light in reach. Provided Education on: ER procedures and process. Administered Medications: 10:20 Drug: Ondansetron IVP 4 mg IVP once; over 2 minutes Route: IVP; Site: left antecubital; ll1 15:20 Follow up: Response: No adverse reaction ll1 14:26 Drug: HYDROcodone-acetaminophen PO 5 mg-325 mg 1 tabs PO once Route: PO; ph 15:20 Follow up: Response: No adverse reaction; Pain is decreased; RASS: Alert and Calm (0) ll1 Medication: 14:27 VIS not applicable for this client. ph Outcome: 15:01 Discharge ordered by . ms3 15:19 Discharged to home ambulatory, ll1 15:19 Condition: stable 15:19 Discharge instructions given to patient, Instructed on discharge instructions, follow up and referral plans. Demonstrated understanding of instructions, follow-up care, 15:21 Patient left the ED. ll1 Signatures: Dispatcher [employer] EDMS Charlotte Arroyo Eric em1 Isidra Grijalva RN RN ph Lewis, Lynsay, RN RN ll1 Miguel Pollard DO DO ms3 Corrections: (The following items were deleted from the chart) 10:21 10:10 BP 93 / 69; Pulse 57bpm; ll1 ll1
[2023-04-05 16:31] VITALS: TEMP 97.3
[2023-04-05 16:50] VITALS: BP 117/67
[2023-04-05 16:51] VITALS: O2SAT 100
== END ==
LOC: ER 10:02
DX: R19.7 Diarrhea, unspecified (principal); E86.0 Dehydration; M62.81 Muscle weakness (generalized); I10 Essential (primary) hypertension; F20.9 Schizophrenia, unspecified
CPT/HCPCS: 93005; 87088; 85025; 81001; 87086; 80048; 36415; 83735; 80076; 84484; 71045; J2405

== ENCOUNTER 2023-06-07 11:21 | Observation (INO) | payer OTHER ==
[2023-06-07] MEDS ORDERED: IPRATROPIUM BROM 0.5MG/2.5ML ONE (12:00)
[2023-06-07] MEDS ORDERED: ALBUTEROL 2.5 MG/3 ML NEB SOL ONE ×2 (12:00→12:50)
[2023-06-07] MEDS ORDERED: METHYLPREDNISOLONE 125 MG INJ ONE (12:01)
[2023-06-07 12:04] LABS: Absolute Basophils 0.1 K/uL (0-0.5); Absolute Eosinophils 0.2 K/uL (0-0.5); Absolute Lymphocytes (CBC) 2.4 K/uL (0.7-4.9); Absolute Monocytes 0.3 K/uL (0.1-1.3); Absolute Neutrophil 1.7 K/uL (1.8-8.0); Basophils % 1.3 % (0-1.3); Eosinophils % 3.8 % (0-4.4); Hematocrit 35.9 % (36.0-45.0); Hemoglobin 11.7 g/dL (12.0-15.0); Lymphocytes % 51.9 % (15.3-44.8); MCH 27.6 pg (27.0-35.0); MCHC 32.5 g/dL (32.0-36.0); MCV 84.9 fL (80-100); MPV 6.7 fL (7.6-11.3); Nucleated Red Blood Cells % 0.1 % (0-0); Platelets 167 thou/uL (152-406); RBC Red Blood Cell Count 4.23 M/uL (3.86-4.86); Red Cell Distribution Width 15.6 % (12.1-15.2)
[2023-06-07 12:25] LABS: Anion Gap 7.1 mEq/L (5.0-15.0); Magnesium 1.7 mg/dL (1.6-2.4); Potassium 4.1 mEq/L (3.5-5.1); Troponin High Sensitivity 7.3 pg/mL (<58.9)
--- NOTE | 2023-06-07 12:31 | RAD REPORT ---
EXAM DESCRIPTION: RAD - Chest Single View - 06/07/2023 12:09 pm CLINICAL HISTORY: DYSPNEA COMPARISON: Chest Single View dated 04/05/2023; Chest Single View dated 12/12/2022; Chest Single View dated 10/31/2022; Chest Single View dated 11/28/2021 FINDINGS: Lines: None. Lungs: No evidence of edema or pneumonia. Minimal subsegmental atelectasis at the right mid lung. Pleural: No significant pleural effusions or pneumothorax. Cardiac: The heart size is within normal limits. Mediastinum: Within normal limits. Bones: No acute fractures. Other: None IMPRESSION: No acute cardiopulmonary disease.
[2023-06-07 12:38] LABS: Atypical Lymphocytes 5 %; Blood Morphology Comment NOT SEEN (NOT SEEN); Differential Total Cells Count 100; Eosinophils 5 % (0-3); Lymphocytes 48 % (15-42); Monocytes 8 % (0-10); Platelet Estimate ADEQ; Platelets, Giant RARE; Reactive Lymphocytes 2 %; Segmented Neutrophils 32 % (40-80)
--- NOTE | 2023-06-07 12:45 | EDPHYS ---
Physician Documentation [facility] Name: Tabatha Chambers Age: 57 yrs Sex: Female : 1965 Arrival Date: 06/07/2023 Time: 11:21 Bed 19 Private MD: Maged Bowman E ED Physician Miguel Pollard HPI: 06/06 11:36 This 57 yrs old Female presents to ER via Unassigned with complaints of ms3 Shortness Of Breath, Hallucinations. 11:36 57-year-old female with past medical history of schizophrenia, anxiety, depression, ms3 seizures, asthma presents to the emergency department for shortness of breath that began 1 week prior to arrival. [facility] notes patient's oxygen saturations decreased to 89% in route. Room air oxygen saturations were 95% on their arrival. Patient denies any alleviating or inciting factors. Patient notes she has had hallucinations of her daughter being in her room. . Historical: - Allergies: 12:17 No Known Allergies; cp4 - Home Meds: 15:14 Alprazolam Oral [Active]; Depakote Oral [Active]; Flexeril Oral [Active]; Keppra Oral cp4 [Active]; Propranolol Oral [Active]; Seroquel Oral [Active]; tizanidine oral [Active]; - PMHx: 12:17 Bipolar disorder; Hypertension; Schizophrenia; Seizures; UTI; cp4 - PSHx: 12:17 ankle SX; Cholecystectomy; tubes tied; cp4 - Immunization history:: Adult Immunizations up to date. - Infectious Disease History:: Denies. all. - Social history:: Smoking status: Patient denies any tobacco usage or history of. ROS: 11:36 Constitutional: Negative for fever, and chills. Neck: Negative for injury, pain, and ms3 swelling, Cardiovascular: Negative for chest pain, and palpitations. 11:36 Abdomen/GI: Negative for abdominal pain, nausea, vomiting, diarrhea, and constipation, MS/Extremity: Negative for injury and deformity, Skin: Negative for injury, rash, and discoloration, Neuro: Negative for headache, weakness, numbness, tingling. 11:36 Respiratory: Positive for shortness of breath, Exam: 11:36 Constitutional: This is a well developed, well nourished patient who is awake, alert, ms3 and in no acute distress. Head/Face: Normocephalic, atraumatic. Neck: Trachea midline, no cervical lymphadenopathy. Supple, full range of motion without nuchal rigidity, or vertebral point tenderness. No Meningismus. Chest/axilla: Normal chest wall appearance and motion. Nontender with no deformity. Cardiovascular: Regular rate and rhythm with a normal S1 and S2. No gallops, murmurs, or rubs. Normal PMI, no JVD. No pulse deficits. Abdomen/GI: Soft, non-tender, with normal bowel sounds. No distension or tympany. No guarding or rebound. No evidence of tenderness throughout. 11:36 Skin: Warm, dry with normal turgor. Normal color with no rashes, no lesions, and no evidence of cellulitis. 11:36 Respiratory: moderate respiratory distress is noted, Respirations: no acute changes, Breath sounds: wheezing: expiratory that is moderate, is heard diffusely, 15:02 ECG was reviewed by the Attending Physician. ms3 Vital Signs: 12:11 BP 110 / 60; Pulse 68; Resp 18; Temp 98; Pulse Ox 95% 2 lpm ; Pain 0/10; cp4 13:00 BP 94 / 54; Pulse 66; Resp 18; Pulse Ox 95% 2 lpm ; cp4 12:11 Pain Scale: Adult cp4 MDM: 11:33 Patient medically screened. ms3 14:37 Differential diagnosis: asthma, CHF exacerbation, Chronic Obstructive Pulmonary Disease ms3 pneumonia, pulmonary edema. Data reviewed: vital signs, nurses notes, lab test result(s), EKG, radiologic studies, and as a result, I will admit patient. Consideration of Admission/Observation Patient was admitted/placed on observation. Management of patient was discussed with the following: Hospitalist: . I considered the following discharge prescriptions or medication management in the emergency department Medications were administered in the Emergency Department. See MAR. Independent interpretation of the following test(s) in the Emergency Department EKG: See my EKG interpretation above. Historians other than the Patient: EMS: [facility]. Counseling: I had a detailed discussion with the patient and/or guardian regarding the historical points, exam findings, and any diagnostic results supporting the discharge/admit diagnosis, lab results, radiology results, the need for further work-up and treatment in the hospital. Medication response: albuterol nebulizer treatment(s) affected no change in the patient's wheezing. Response to treatment: There is no appreciated change of the patient's symptoms at this time, and as a result, I will admit patient. ED course: Patient remained with wheezing, magnesium and additional albuterol nebulizers administered. Discussed case with hospitalist team and they accept patient as admission.. 06/06 11:24 Order name: Basic Metabolic Panel; Complete Time: 12:33 ms3 06/06 11:24 Order name: CBC with Diff; Complete Time: 12:59 ms3 06/06 11:24 Order name: Magnesium; Complete Time: 12:33 ms3 06/06 11:24 Order name: NT PRO-BNP; Complete Time: 12:33 ms3 06/06 11:24 Order name: Troponin HS; Complete Time: 12:33 ms3 06/06 12:40 Order name: Manual Differential; Complete Time: 12:59 EDMS 06/06 11:24 Order name: XRAY Chest (1 view); Complete Time: 12:33 ms3 06/06 11:24 Order name: Cardiac monitoring; Complete Time: 11:58 ms3 06/06 11:24 Order name: EKG - Nurse/Tech; Complete Time: 11:59 ms3 06/06 11:24 Order name: IV Saline Lock; Complete Time: 11:59 ms3 06/06 11:24 Order name: Labs collected and sent; Complete Time: 11:59 ms3 06/06 11:24 Order name: O2 Per Protocol; Complete Time: 11:59 ms3 06/06 11:24 Order name: O2 Sat Monitoring; Complete Time: 11:59 ms3 EC:02 Rate is 65 beats/min. Rhythm is regular. QRS [place] is Normal. [place] interval is normal. QRS ms3 interval is normal. QT interval is normal. Clinical impression: Normal ECG. Interpreted by me. Reviewed by me. Administered Medications: 12:07 Drug: MethylPrednisoLONE IVP 125 mg IVP once Route: IVP; Site: left antecubital; cp4 13:05 Follow up: Response: No adverse reaction cp4 13:50 Follow up: Response: No adverse reaction cp4 12:08 Drug: Albuterol Inhalation 2.5 mg Inhalation every 20 minutes x3 Route: Inhalation; cp4 12:08 Drug: Ipratropium Inhalation Aerosol 0.5 mg Inhalation once Route: Inhalation; cp4 13:51 Follow up: Response: No adverse reaction cp4 12:28 Drug: Albuterol Inhalation 2.5 mg Inhalation every 20 minutes x3 Route: Inhalation; cp4 12:48 Drug: Albuterol Inhalation 2.5 mg Inhalation every 20 minutes x3 Route: Inhalation; cp4 13:51 Follow up: Response: No adverse reaction cp4 12:58 Drug: Albuterol Inhalation 2.5 mg Inhalation every 20 minutes x3 Route: Inhalation; cp4 12:58 Drug: Magnesium Sulfate IVPB 1 grams IVPB once over 1 hrs Route: IVPB; Infused Over: 1 cp4 hrs; Site: left antecubital; 13:50 Follow up: Response: No adverse reaction; IV Status: Completed infusion cp4 13:20 Drug: Albuterol Inhalation 2.5 mg Inhalation every 20 minutes x3 Route: Inhalation; cp4 13:44 Drug: Albuterol Inhalation 2.5 mg Inhalation every 20 minutes x3 Route: Inhalation; cp4 13:50 Follow up: Response: No adverse reaction cp4 13:44 Drug: Calcium Carbonate PO 500 mg 2 tablet PO once Route: PO; cp4 13:50 Follow up: Response: No adverse reaction cp4 Disposition: 14:37 Critical Care:. ms3 Disposition Summary: 06/07/23 12:45 Hospitalization Ordered Notes: Hospitalization Status: Inpatient Admission ms3 Provider: Boone Pate ms3 Condition: Stable ms3 Problem: new ms3 Symptoms: are unchanged ms3 Bed/Room Type: Standard ms3 Location: Telemetry/MedSurg (Inpatient)(06/07/23 18:26) rust Room Assignment: [facility](06/07/23 18:54) rust Diagnosis - COPD/ Chronic obstructive pulmonary disease with (acute) exacerbation ms3 - Acute respiratory failure with hypoxia ms3 Forms: - Medication Reconciliation Form ms3 - SBAR form ms3 - Leadership Thank You Letter ms3 Critical care time excluding procedures: 14:37 Critical care time: Bedside Care: 30 minutes, Consultation: 5 minutes. Total time: 35 ms3 minutes Signatures: Dispatcher [employer] EDMS Lizandro Joseph FNP-C [id number] Miguel Pollard DO DO ms3 Serena Vasquez RN RN [email or web address] Alyssa Green cp4 Alexandra Finch jr12 Corrections: (The following items were deleted from the chart) 11:24 11:24 BASIC METABOLIC PANEL+C.LAB.BRZ ordered. EDMS EDMS 11:24 11:24 CBC+H.LAB.BRZ ordered. EDMS EDMS 11:24 11:24 MAGNESIUM+C.LAB.BRZ ordered. EDMS EDMS 11:24 11:24 PROBNP+C.LAB.BRZ ordered. EDMS EDMS 11:24 11:24 Troponin High Sensitivity+C.LAB.BRZ ordered. EDMS EDMS 11:25 11:25 Chest Single View+RAD.RAD.BRZ ordered. EDMS EDMS 14:51 12:45 Telemetry/MedSurg (Inpatient) ms3 kb3 14:51 12:45 ms3 kb3 18:26 14:51 [facility] ER HOLD kb3 jr12 18:26 14:51 ERHOLD- kb3 jr12 18:54 18:26 220 jr12 jr12
--- NOTE | 2023-06-07 12:45 | ER ---
Nurse's Notes [facility] Name: Tabatha Chambers Age: 57 yrs Sex: Female : 1965 Arrival Date: 06/07/2023 Time: 11:21 Bed 19 Private MD: Maged Bowman E Diagnosis: COPD/ Chronic obstructive pulmonary disease with (acute) exacerbation;Acute respiratory failure with hypoxia Presentation: 06/06 12:11 Chief complaint: EMS states: of shortness of breath and hallucinations. Coronavirus cp4 screen: Client denies travel out of the [place] in the last 14 days. At this time, the client does not indicate any symptoms associated with coronavirus-19. Ebola Screen: Patient negative for fever greater than or equal to 101.5 degrees Fahrenheit, and additional compatible Ebola Virus Disease symptoms Patient denies exposure to infectious person. Patient denies travel to an Ebola-affected area in the 21 days before illness onset. No symptoms or risks identified at this time. Initial Sepsis Screen: Does the patient meet any 2 criteria? No. Patient's initial sepsis screen is negative. Does the patient have a suspected source of infection? No. Patient's initial sepsis screen is negative. Risk Assessment: Do you want to hurt yourself or someone else? Patient reports no desire to harm self or others. Onset of symptoms was June 07, 2023. 12:11 Method Of Arrival: EMS: [facility] 4 12:11 Acuity: VERO 3 cp4 Triage Assessment: 12:17 General: Appears uncomfortable, Behavior is calm, cooperative, appropriate for age. cp4 Pain: Denies pain. 12:17 Respiratory: Reports shortness of breath at rest on exertion Breath sounds with wheezes cp4 bilaterally. Onset: The symptoms/episode began/occurred this morning, the patient has moderate shortness of breath. Historical: - Allergies: 12:17 No Known Allergies; cp4 - Home Meds: 15:14 Alprazolam Oral [Active]; Depakote Oral [Active]; Flexeril Oral [Active]; Keppra Oral cp4 [Active]; Propranolol Oral [Active]; Seroquel Oral [Active]; tizanidine oral [Active]; - PMHx: 12:17 Bipolar disorder; Hypertension; Schizophrenia; Seizures; UTI; cp4 - PSHx: 12:17 ankle SX; Cholecystectomy; tubes tied; cp4 - Immunization history:: Adult Immunizations up to date. - Infectious Disease History:: Denies. all. - Social history:: Smoking status: Patient denies any tobacco usage or history of. Screenin:20 [facility] ED Fall Risk Assessment (Adult) History of falling in the last 3 months, cp4 including since admission No falls in past 3 months (0 pts) Confusion or Disorientation No (0 pts) Intoxicated or Sedated No (0 pts) Impaired Gait No (0 pts) Mobility Assist Device Used No (0 pt) Altered Elimination No (0 pt) Score/Fall Risk Level 0 - 2 = Low Risk Oriented to surroundings, Maintained a safe environment, Assessed \T\ reinforced patient's understanding of fall precautions, Hourly rounding (assess needs \T\ fall precautionary measures) done. Abuse screen: Denies threats or abuse. Nutritional screening: No deficits noted. Tuberculosis screening: No symptoms or risk factors identified. Assessment: 12:20 Reassessment: No changes from previously documented assessment. Cardiovascular: Rhythm cp4 is regular. Respiratory: Airway is patent Respiratory effort is even, unlabored. Vital Signs: 12:11 BP 110 / 60; Pulse 68; Resp 18; Temp 98; Pulse Ox 95% 2 lpm ; Pain 0/10; cp4 13:00 BP 94 / 54; Pulse 66; Resp 18; Pulse Ox 95% 2 lpm ; cp4 12:11 Pain Scale: Adult cp4 ED Course: 11:22 Patient arrived in ED. mr 11:22 Maged Bowman MD is Private Physician. mr 11:23 Miguel Pollard DO is Attending Physician. ms3 11:36 Alyssa Green is Primary Nurse. cp4 11:59 Basic Metabolic Panel Sent. cp4 11:59 CBC with Diff Sent. cp4 11:59 Magnesium Sent. cp4 11:59 NT PRO-BNP Sent. cp4 11:59 Troponin HS Sent. cp4 12:11 XRAY Chest (1 view) In Process Unspecified. EDMS 12:17 Triage completed. cp4 12:17 Arm band placed on right wrist. Patient placed in an exam room, on a stretcher. cp4 12:20 No provider procedures requiring assistance completed. Maintain EMS IV. Dressing cp4 intact. Good blood return noted. Site clean \T\ dry. Gauge \T\ site: 20G LAC. 12:20 Bed in low position. Call light in reach. Side rails up X 1. cp4 12:21 Initial lab(s) drawn, by me, sent to lab. EKG done, by ED staff, reviewed by Mgiuel Pollard DO. 12:21 Client placed on continuous cardiac and pulse oximetry monitoring. NIBP monitoring cp4 applied. court recording monitor on. Warm blanket given. 12:24 Oxygen administration via nasal cannula \T\ 2L/min. cp4 12:44 Boone Pate MD is Hospitalizing Provider. ms3 18:41 Patient admitted, IV remains in place. cp4 18:41 Provided Education on: admission. cp4 Administered Medications: 12:07 Drug: MethylPrednisoLONE IVP 125 mg IVP once Route: IVP; Site: left antecubital; cp4 13:05 Follow up: Response: No adverse reaction cp4 13:50 Follow up: Response: No adverse reaction cp4 12:08 Drug: Albuterol Inhalation 2.5 mg Inhalation every 20 minutes x3 Route: Inhalation; cp4 12:08 Drug: Ipratropium Inhalation Aerosol 0.5 mg Inhalation once Route: Inhalation; cp4 13:51 Follow up: Response: No adverse reaction cp4 12:28 Drug: Albuterol Inhalation 2.5 mg Inhalation every 20 minutes x3 Route: Inhalation; cp4 12:48 Drug: Albuterol Inhalation 2.5 mg Inhalation every 20 minutes x3 Route: Inhalation; cp4 13:51 Follow up: Response: No adverse reaction cp4 12:58 Drug: Albuterol Inhalation 2.5 mg Inhalation every 20 minutes x3 Route: Inhalation; cp4 12:58 Drug: Magnesium Sulfate IVPB 1 grams IVPB once over 1 hrs Route: IVPB; Infused Over: 1 cp4 hrs; Site: left antecubital; 13:50 Follow up: Response: No adverse reaction; IV Status: Completed infusion cp4 13:20 Drug: Albuterol Inhalation 2.5 mg Inhalation every 20 minutes x3 Route: Inhalation; cp4 13:44 Drug: Albuterol Inhalation 2.5 mg Inhalation every 20 minutes x3 Route: Inhalation; cp4 13:50 Follow up: Response: No adverse reaction cp4 13:44 Drug: Calcium Carbonate PO 500 mg 2 tablet PO once Route: PO; cp4 13:50 Follow up: Response: No adverse reaction cp4 Medication: 12:20 VIS not applicable for this client. cp4 Outcome: 12:45 Decision to Hospitalize by Provider. ms3 18:41 Admitted to ER Hold. Please see [facility] for further documentation. cp4 18:41 Condition: stable 18:41 Instructed on the need for admit, 19:51 Patient left the ED. cp4 Signatures: Dispatcher [employer] EDMS Araceli Montoya, Nii Reg Miguel Valle, DO ms3 Alyssa Green cp4 Corrections: (The following items were deleted from the chart) 12:20 12:17 Respiratory: Reports shortness of breath at rest on exertion Breath sounds with cp4 crackles bilaterally. Onset: The symptoms/episode began/occurred this morning, the patient has moderate shortness of breath cp4
[2023-06-07] MEDS ORDERED: MAGNESIUM SULFATE 1 gm IVPB 1 GM/100 ML BAG IV ONE (12:50)
[2023-06-07] MEDS: CALCIUM CARBONATE 500 MG TAB PO ONE (13:00)
--- NOTE | 2023-06-07 15:19 | P.HP ---
Certification for Inpatient Patient admitted to: Observation With expected LOS: <2 Midnights <Anna Gallagher - Last Filed: 06/07/23 15:50> Patient History Date of Service: 06/07/23 Primary Care Provider: jony Reason for admission: hypoxia, COPD History of Present Illness: 57 yo F, PMH: bipolar I, schizophrenia, depression/anxiety, asthma, seizure disorder, HTN. presented to ED with SOB x 1 week associated with cough, wheezing and chills. Reports son in law has been sick with similar symptoms and is currently hospitalized here. She has been using her albuterol inhaler with minimal relief and has not taken any other OTC medications/remedies for this problem. Denies history of COPD, states her inhaler is prescribed for asthma. Also reporting 2 weeks of visual/auditory hallucinations, described as "shadow people." They have been telling her what to do such as move out of the house and have brought her taco triplett and have had similar appearance as her daughter at times. She does not recognize they are hallucinations at the time.Last episode of seeing shadow people reported ~2 years ago. She reports duloxetine was restarted 1 month ago due to increase in depression symptoms. Reports previously on duloxetine, stopped ~1year ago due to improvement in her symptoms. Currently, patient denies any nausea,vomiting,abdominal pain, diarrhea. No chest pain, rash. In the ED, she was noted to be hypoxic and placed on 2L NC, received nebs x3, and solumedrol 125mg IVx1. At time of my exam, she felt "a little better" - Past Medical/Surgical History Diabetic: No -: schizophrenia -: bipolar -: htn -: epilepsy -: depression -: anxiety -: asthma -: tubal ligation -: left ankle -: ectopic Psychosocial/ Personal History: Patient lives at home with her kids. - Family History Mother -: Hypertension, Diabetes, Stroke - Social History Smoking Status: Former smoker (quit 2019) Alcohol use: No CD- Drugs: Yes Caffeine use: No Place of Residence: Home <Anna Gallagher - Last Filed: 06/07/23 15:50> Date of Service: 06/07/23 <Boone Pate - Last Filed: 06/07/23 16:20> Allergies No Known Drug Allergies Allergy (Verified 07/10/20 04:29) Unknown Home Medications: Propranolol [Inderal*] 20 mg PO TID 07/04/19 Quetiapine Fumarate [Seroquel] 200 tab BID 07/04/19 Tizanidine [Zanaflex*] 4 tab PO BID PRN 07/04/19 Divalproex Sodium [Depakote] 500 mg PO BID 07/11/20 Alprazolam [Xanax] 1 mg PO DAILY PRN 10/28/21 Duloxetine HCl [Cymbalta] 60 mg PO DAILY 10/28/21 levETIRAcetam [Keppra*] 1 tab PO BID 10/28/21 Omeprazole [Prilosec] 40 mg PO DAILY 06/07/23 Review of Systems 10-point ROS is otherwise unremarkable <Anna Gallagher - Last Filed: 06/07/23 15:50> Physical Examination - Physical Exam General: Alert, Oriented x3, Mild distress HEENT: EOMI, Sclerae nonicteric Neck: Supple, No LAD Respiratory: Diminished, Expiratory wheezes (2L nasal cannula) Cardiovascular: Regular rate/rhythm, No murmurs, Edema (trace) Capillary refill: <2 Seconds Gastrointestinal: Soft and benign, Non-distended Musculoskeletal: No contractures, No erythema Integumentary: No rashes, No significant lesion Neurological: Normal speech, Normal affect, Other (currently no hallucinations) - Studies Laboratory Data (last 24 hrs) 06/07/23 06/07/23 11:55 11:55 WBC 4.70 Hgb 11.7 L Hct 35.9 L Plt Count 167 Sodium 140 Potassium 4.1 BUN 12 Creatinine 1.05 H Glucose 117 H Magnesium 1.7 <Anna Gallagher - Last Filed: 06/07/23 15:50> - Studies Laboratory Data (last 24 hrs) 06/07/23 06/07/23 11:55 11:55 WBC 4.70 Hgb 11.7 L Hct 35.9 L Plt Count 167 Sodium 140 Potassium 4.1 BUN 12 Creatinine 1.05 H Glucose 117 H Magnesium 1.7 <Boone Pate - Last Filed: 06/07/23 16:20> Assessment and Plan - Plan Problem List Acute hypoxemic respiratory failure secondary to suspected COPD exacerbation subacute visual/auditory hallucinations with h/o Bipolar I, Schizophrenia Depression Anxiety Seizure disorder, chronic h/o hypertension Acute hypoxemic respiratory failure secondary to suspected COPD exacerbation hypoxic to 85% on RA in ED, placed on 2L NC and improved with nebs wheeze on exam, and h/o "asthma", with prescription for inhaler (albuterol) start prednisone, nebs, wean oxygen as tolerated CXR without acute process, afebrile, no leukocytosis, less likely pneumonia possibly viral vs copd will hold off on antibiotics for now subacute visual/auditory hallucinations with h/o Bipolar I, Schizophrenia Depression Seizure disorder, chronic Anxiety ~2-3 weeks of hallucinations, last had ~2 yrs ago possibly secondary to recent restart of duloxetine stated started ~1-2 weeks prior to hallucinations started denies any other recent changes in meds anti-HTN meds dc'd ~6 months ago depakote and keppra doses haven't changed in >1 year, and she has not run out / missed doses started prior to this illness resume home depakote and keppra dc duloxetine as this may be the cause increased home alprazolam from BID PRN to TID PRN temporarily h/o hypertension anti-HTN meds dc'd ~6 months ago currently low-normal, will monitor will give gentle IVF, NS @50ml/hr for 1L home propranolol on hold. will follow up with patient to see if she takes for BP or anxiety. VTE: lovenox Code: full Dispo: home, ~1-2 days pending wean oxygen, afebrile, mentation improved - Advance Directives Does patient have a Living Will: No Does patient have a Durable POA for Healthcare: No Time Spent Managing Pts Care (In Minutes): 65 <Anna Gallagher - Last Filed: 06/07/23 15:50> - Plan Patient seen and examined on admission in the ED with THEATRICAL DRESSER Elliott. I performed a substantial part of the MDM during this patient's care today as noted above in the plan of care. I agree with plan of care as noted above with the following additions / corrections: CXR clear. wheezing and dyspneic on exam. reports history of "asthma", however given history of smoking, suspect patient has COPD treat for COPD exacerbation "shadow people" / hallucinations. Timeline would fit most with duloxetine being the etiology. Uncertain though, as she tolerated this in the past. stop duloxetine for now may need psych consult <Boone Pate - Last Filed: 06/07/23 16:20>
[2023-06-07] MEDS ORDERED: ONDANSETRON 4 MG/2 ML VIAL IV PRN (15:26)
[2023-06-07] MEDS ORDERED: ALBUTEROL 2.5 MG/3 ML NEB SOL NEB PRN (15:26)
[2023-06-07] MEDS ORDERED: ENOXAPARIN 40 MG/0.4 ML SQ ONE (18:12)
[2023-06-07] MEDS ORDERED: NA CHLORIDE 0.9% 1,000 ML ONE (18:13)
[2023-06-07] MEDS: INFLUENZA VACCINE (for 6+ mo) 0.5 ML DOSE IMVAC ONE (20:00)
[2023-06-07] MEDS: ENOXAPARIN 40 MG/0.4 ML SQ SCH (20:32)
[2023-06-07] MEDS: NA CHLORIDE 0.9% 1,000 ML IV SCH (20:32)
[2023-06-07] MEDS: ALPRAZOLAM 1 MG TABLET PO PRN (20:32)
[2023-06-07] MEDS: DIVALPROEX DR 500MG TAB PO SCH (20:33)
[2023-06-07] MEDS: predniSONE 20 MG TAB PO SCH (20:33)
[2023-06-07] MEDS: levETIRAcetam 500 MG TAB PO SCH (20:33)
[2023-06-07] MEDS: QUETIAPINE 100MG TAB PO SCH (20:33)
[2023-06-07] MEDS: DULERA 200/5 (MOMETASONE/FORMOTEROL) INHALER IH SCH (21:00)
[2023-06-08 06:13] LABS: Absolute Lymphocytes (CBC) 1.6 K/uL (0.7-4.9); Absolute Monocytes 0.4 K/uL (0.1-1.3); Absolute Neutrophil 5.3 K/uL (1.8-8.0); Basophils % 0.2 % (0-1.3); Eosinophils % 0.1 % (0-4.4); Hemoglobin 11.7 g/dL (12.0-15.0); Lymphocytes % 21.7 % (15.3-44.8); MCH 27.7 pg (27.0-35.0); MCHC 32.6 g/dL (32.0-36.0); MCV 84.9 fL (80-100); Monocytes % 5.9 % (3.3-12.3); Neutrophils % 72.1 % (41.7-73.7); Nucleated Red Blood Cells % 0.2 % (0-0); Platelets 187 thou/uL (152-406); RBC Red Blood Cell Count 4.24 M/uL (3.86-4.86); Red Cell Distribution Width 15.8 % (12.1-15.2)
[2023-06-08 06:51] LABS: Albumin 2.7 g/dL (3.4-5.0); Albumin/Globulin Ratio 0.6 (1.1-1.8); Anion Gap 8.2 mEq/L (5.0-15.0); Bilirubin Total 0.1 mg/dL (0.2-1.0); Globulin 4.3 g/dL (2.3-3.5); Thyroid Stimulating Hormone 1.29 uIU/mL (0.358-3.740)
[2023-06-08 06:53] LABS: Magnesium 2.1 mg/dL (1.6-2.4); Potassium 4.2 mEq/L (3.5-5.1)
[2023-06-08] MEDS: POTASS/SODIUM PHOSPHATE 1 PKT POWD.PACK PO SCH (09:34)
[2023-06-08] MEDS: ALBUTEROL 2.5 MG/3 ML NEB SOL NEB SCH (11:00)
[2023-06-08] MEDS: IPRATROPIUM BROM 0.5MG/2.5ML NEB SCH (11:15)
--- NOTE | 2023-06-08 13:31 | EKG ---
Test Date: 2023-06-07 Test Time: 11:45:36 [employer]: CAROLINE MEASUREMENT RESULTS: Intervals: Rate: 65 [place]: 184 QRSD: 80 QT: 406 QTc: 422 [place]: P: 64 [place]: 184 QRS: 20 T: 32 INTERPRETIVE STATEMENTS: Normal sinus rhythm Normal ECG Compared to ECG 04/05/2023 10:20:29 Sinus bradycardia no longer present Electronically Signed On 06-08-23 13:28:11 CDT by [place]
--- NOTE | 2023-06-08 18:17 | P.PN ---
Subjective Date of Service: 06/08/23 Primary Care Provider: jony Chief Complaint: hypoxia, COPD Patient was complaining of shortness of breath and wheezing this morning. Patient is not hypoxic on room air. Physical Examination - Vital Signs Temperature: 98.1 F Blood Pressure: 126/71 Pulse: 71 Respirations: 20 Pulse Ox (%): 93 Assessment And Plan - Plan Physical examination General: Alert and oriented x3, NAD, morbidly obese Neck: Supple, no elevated JVD Heart: Heart sounds 1 and 2 normal, regular rhythm, normal rate, no pedal edema Lungs: Adequate breath sounds bilaterally, bilateral wheezes. Abdomen: Soft, nondistended, nontender, normal bowel sounds. Extremities: No tenderness, no deformity Skin: Normal skin turgor, no rash, no nodules or ulcers. Neuro: No focal motor deficit. Normal speech. No focal motor deficit. Psychiatry: Normal mood, no agitation. Diagnosis Acute hypoxemic respiratory failure secondary to suspected COPD exacerbation subacute visual/auditory hallucinations with h/o Bipolar I, Schizophrenia Depression Anxiety Seizure disorder, chronic h/o hypertension Acute hypoxemic respiratory failure secondary to suspected COPD exacerbation Respiratory status improved. Patient is now stable on room air. Continue prednisone. CXR without acute process, afebrile, no leukocytosis. Symptoms preceded by upper respiratory infection. Acute asthma versus COPD likely precipitated by upper respiratory infection. Continue bronchodilators. subacute visual/auditory hallucinations with h/o Bipolar I, Schizophrenia Depression Seizure disorder, chronic Anxiety ~2-3 weeks of hallucinations, last had ~2 yrs ago Suspect related to history of schizophrenia. Could also be related to duloxetine. Duloxetine is on hold Continue depakote, Seroquecate and keradha. increased home alprazolam from BID PRN to TID PRN. h/o hypertension anti-HTN meds dc'd ~6 months ago Patient is currently normotensive. Propranolol is listed as her home medication Continue to hold propranolol. VTE: lovenox Code: full Dispo: home
[2023-06-08 18:39] VITALS: BMI 50.8
[2023-06-09 03:25] VITALS: O2SAT 92
[2023-06-09 07:14] LABS: Absolute Lymphocytes (CBC) 1.5 K/uL (0.7-4.9); Absolute Monocytes 0.3 K/uL (0.1-1.3); Absolute Neutrophil 5.9 K/uL (1.8-8.0); Basophils % 0.3 % (0-1.3); Hematocrit 36.4 % (36.0-45.0); Hemoglobin 11.9 g/dL (12.0-15.0); Lymphocytes % 19.1 % (15.3-44.8); MCH 27.7 pg (27.0-35.0); MCHC 32.6 g/dL (32.0-36.0); MPV 6.6 fL (7.6-11.3); Monocytes % 3.5 % (3.3-12.3); Neutrophils % 77.1 % (41.7-73.7); Platelets 198 thou/uL (152-406); RBC Red Blood Cell Count 4.28 M/uL (3.86-4.86); Red Cell Distribution Width 16.1 % (12.1-15.2)
[2023-06-09 07:31] LABS: Albumin 2.8 g/dL (3.4-5.0); Albumin/Globulin Ratio 0.6 (1.1-1.8); Anion Gap 5.6 mEq/L (5.0-15.0); Bilirubin Total 0.2 mg/dL (0.2-1.0); Globulin 4.5 g/dL (2.3-3.5); Phosphorus 2.1 mg/dL (2.5-4.9); Potassium 4.6 mEq/L (3.5-5.1); Protein, Total 7.3 g/dL (6.4-8.2)
[2023-06-09] MEDS: POTASS/SODIUM PHOSPHATE 1 PKT POWD.PACK PO SCH (08:28)
[2023-06-09] MEDS: ACETAMINOPHEN 500 MG TAB PO PRN (08:29)
--- NOTE | 2023-06-09 09:05 | P.DS ---
Admission Date: 06/07/23 Discharge Date: 06/09/23 Primary Care Provider: jony Disposition: ROUTINE DISCHARGE Discharge Condition: FAIR Reason for Admission: hypoxia, COPD Brief History of Present Illness: 57 yo F, PMH: bipolar I, schizophrenia, depression/anxiety, asthma, seizure disorder, HTN presented to ED with SOB x 1 week associated with cough, wheezing and chills. She reported her son in law was sick and hospitalized with similar symptoms. She used her albuterol inhaler with minimal relief. Denies history of COPD, states her inhaler is prescribed for asthma. She also reported 2 weeks of visual/auditory hallucinations, described as "shadow people." They have been telling her what to do such as move out of the house and have brought her taco triplett and have had similar appearance as her daughter at times. Last episode of seeing shadow people was reported ~2 years ago. She reports duloxetine was restarted 1 month ago due to increase in depression symptoms. Reports previously on duloxetine, stopped ~1year ago due to improvement in her symptoms. In the ED, she was noted to be hypoxic and placed on 2L NC, received nebs x3, and solumedrol 125mg IVx1. At time of my exam, she felt a little better. Patient was hospitalized for further management. Hospital Course: Diagnosis Acute hypoxemic respiratory failure secondary to suspected COPD exacerbation subacute visual/auditory hallucinations with h/o Bipolar I, Schizophrenia Depression Anxiety Seizure disorder, chronic h/o hypertension Patient was admitted to the medical floor and the following medical problems addressed: Acute hypoxemic respiratory failure secondary to suspected COPD exacerbation Patient treated with scheduled nebs and steroid. Respiratory status improved. Patient was stable on room air. CXR without acute process, afebrile, no leukocytosis. Symptoms preceded by upper respiratory infection. Acute asthma versus COPD likely precipitated by upper respiratory infection. Patient respiratory status improved significantly. Vitals are stable for discharge. She is discharged with a few more days of oral prednisone. She is informed to come be compliant with her inhalers. subacute visual/auditory hallucinations with h/o Bipolar I, Schizophrenia Depression Seizure disorder, chronic Anxiety ~2-3 weeks of hallucinations, last had ~2 yrs ago Suspect related to history of schizophrenia. Could also be related to duloxetine. Duloxetine held Continued depakote, Seroquel and keppra. Anxiety treated with alprazolam as needed. h/o hypertension anti-HTN meds dc'd ~6 months ago Patient is currently normotensive but has been on propranolol. Propranolol discontinued on discharge due to soft blood pressure. VTE: lovenox Code: full Dispo: home Vital Signs/Physical Exam: Temp Pulse Resp BP Pulse Ox 97.6 F 69 16 116/64 94 06/09/23 04:00 06/09/23 04:00 06/09/23 04:00 06/09/23 04:00 06/09/23 04:00 General: Alert, In no apparent distress, Obese HEENT: Normocephalic, Mucous membr. moist/pink Neck: 2+ carotid pulse no bruit, JVD not distended Respiratory: Clear to auscultation bilaterally, Normal air movement Cardiovascular: No edema, Regular rate/rhythm, Normal S1 S2 Gastrointestinal: Normal bowel sounds, Soft and benign, Non-distended Neurological: Normal strength at 5/5 x4 extr, Cranial nerves 3-12 intact Lymphatics: Axilla lymphadenopathy Laboratory Data at Discharge: WBC 7.70 thou/uL (4.3-10.9) 06/09/23 06:44 Hgb 11.9 g/dL (12.0-15.0) L 06/09/23 06:44 Hct 36.4 % (36.0-45.0) 06/09/23 06:44 Plt Count 198 thou/uL (152-406) 06/09/23 06:44 Sodium 140 mEq/L (136-145) 06/09/23 06:44 Potassium 4.6 mEq/L (3.5-5.1) 06/09/23 06:44 BUN 17 mg/dL (7-18) 06/09/23 06:44 Creatinine 1.06 mg/dL (0.55-1.02) H 06/09/23 06:44 Glucose 188 mg/dL (74-106) H 06/09/23 06:44 Phosphorus 2.1 mg/dL (2.5-4.9) L 06/09/23 06:44 Magnesium 2.0 mg/dL (1.6-2.4) 06/09/23 06:44 Total Bilirubin 0.2 mg/dL (0.2-1.0) 06/09/23 06:44 AST 5 U/L (15-37) L 06/09/23 06:44 ALT 11 U/L (13-56) L 06/09/23 06:44 Alkaline Phosphatase 81 U/L (45-117) 06/09/23 06:44 Home Medications: Quetiapine Fumarate [Seroquel] 200 tab BID 07/04/19 Tizanidine [Zanaflex*] 4 tab PO BID PRN 07/04/19 Divalproex Sodium [Depakote] 500 mg PO BID 07/11/20 Alprazolam [Xanax] 1 mg PO DAILY PRN 10/28/21 levETIRAcetam [Keppra*] 1 tab PO BID 10/28/21 Omeprazole [Prilosec] 40 mg PO DAILY 06/07/23 Mometasone/Formoterol [Dulera 200 Mcg/5 Mcg Inhaler] 2 puff IH BID #1 inhaler 06/09/23 Potassium Phos,X-Ooaey-Y-Basic [Mmpqcg-Eawe-W] 1 each PO BID #2 packet 06/09/23 predniSONE [Prednisone*] 20 mg PO BID #6 tab 06/09/23 New Medications: Mometasone/Formoterol [Dulera 200 Mcg/5 Mcg Inhaler] 2 puff IH BID #1 inhaler Potassium Phos,S-Pctka-C-Basic [Trzheu-Mlra-D] 1 each PO BID #2 packet predniSONE [Prednisone*] 20 mg PO BID #6 tab Physician Discharge Instructions: Dr. Ernesto Young Address: [address] [place] [address] [address], [address] PSYCHIATRY [address] Diet: AHA Activity: Ad napoleon Followup: Raza Chiu DO [Primary Care Provider] - 1-2 Weeks
[2023-06-09 09:47] VITALS: BP 145/84; TEMP 99.5
== END 2023-06-09 12:29 | disposition home or self-care (01) ==
LOC: ER 11:21 → ERHOLD 14:29 → 4TH 20:46
PROVIDERS: ADMIT Hospitalist; ATTEND Internal Medicine
DX: J96.91 Respiratory failure, unspecified with hypoxia (principal); J45.909 Unspecified asthma, uncomplicated; F31.9 Bipolar disorder, unspecified; F20.9 Schizophrenia, unspecified; F32.A Depression, unspecified; F41.9 Anxiety disorder, unspecified; R56.9 Unspecified convulsions; I10 Essential (primary) hypertension; R44.0 Auditory hallucinations; R44.1 Visual hallucinations
CPT/HCPCS: 96365; 93005; 85025 ×3; 80048; 36415 ×2; 83735 ×3; 84100 ×2; 84443; 84484; 84439; 80053 ×2; 83880; 71045; 96375; 99285; J7512 ×5; J3475; J7613 ×7; J7644 ×5; J1650 ×4; J2930; J7030 ×2; G0378; J3535

== ENCOUNTER 2023-07-01 22:01 | Emergency (ER) | payer OTHER ==
[2023-07-01] MEDS ORDERED: NA CHLORIDE 0.9% 1,000 ML ONE (22:40)
[2023-07-01 22:50] LABS: Absolute Basophils 0.1 K/uL (0-0.5); Absolute Eosinophils 0.1 K/uL (0-0.5); Absolute Lymphocytes (CBC) 1.9 K/uL (0.7-4.9); Absolute Monocytes 0.4 K/uL (0.1-1.3); Absolute Neutrophil 5.8 K/uL (1.8-8.0); Basophils % 0.9 % (0-1.3); Eosinophils % 1.7 % (0-4.4); Hematocrit 41.2 % (36.0-45.0); Hemoglobin 13.5 g/dL (12.0-15.0); Lymphocytes % 22.4 % (15.3-44.8); MCH 27.8 pg (27.0-35.0); MCHC 32.9 g/dL (32.0-36.0); MCV 84.5 fL (80-100); MPV 7.3 fL (7.6-11.3); Monocytes % 4.7 % (3.3-12.3); Neutrophils % 70.3 % (41.7-73.7); Nucleated Red Blood Cells % 0.1 % (0-0); Platelets 228 thou/uL (152-406); RBC Red Blood Cell Count 4.87 M/uL (3.86-4.86); Red Cell Distribution Width 16.1 % (12.1-15.2)
[2023-07-01 22:59] LABS: PT Prothrombin Time 10.6 SECONDS (9.5-12.5); PTT, Activated Partial Thromb 38.2 SECONDS (24.3-36.9); Protime INR 0.96
[2023-07-01 23:11] LABS: Specific Gravity 1.027 (1.005-1.030)
[2023-07-01 23:12] LABS: ALT/SGPT 21 U/L (13-56); AST/SGOT 14 U/L (15-37); Albumin/Globulin Ratio 0.6 (1.1-1.8); Alkaline Phosphatase 123 U/L (45-117); Anion Gap 9.6 mEq/L (5.0-15.0); BUN Blood Urea Nitrogen 18 mg/dL (7-18); Bicarbonate 24 mEq/L (21-32); Bilirubin Total 0.2 mg/dL (0.2-1.0); Globulin 4.9 g/dL (2.3-3.5); Glomerular Filtration Rate 54 ml/min (=/>90); Glucose Level 146 mg/dL (74-106); Potassium 4.6 mEq/L (3.5-5.1); Protein, Total 7.9 g/dL (6.4-8.2); Sodium Level 138 mEq/L (136-145)
[2023-07-01 23:14] LABS: Bilirubin Direct < 0.1 mg/dL (0-0.2); Bilirubin Indirect, Calculated ND mg/dL (0.2-0.8)
[2023-07-01 23:16] LABS: Specific Gravity 1.027 (1.005-1.030); Sqamous Epithelial <5 /HPF (None Seen); Urine Bacteria None Seen /HPF (<20); Urine Bilirubin NEGATIVE (Negative); Urine Blood Negative (Negative); Urine Clarity Clear (Clear); Urine Color Light-Yellow (Yellow); Urine Crystals Unidentified Few /HPF (None Seen); Urine Culture Reflex Order NOT NEEDED; Urine Glucose NEGATIVE (Negative); Urine Ketones NEGATIVE (Negative); Urine Microscopic Reflex YN ORDER UMIC; Urine Mucus Slight /HPF (None Seen); Urine Nitrite NEGATIVE (Negative); Urine Protein TRACE (Negative); Urine RBC <5 /HPF (None Seen); Urine Urobilinogen Normal (Normal); Urine WBC <5 /HPF (<5)
[2023-07-01 23:19] LABS: Barbiturates NEGATIVE (NEGATIVE); Benzodiazepines POSITIVE (NEGATIVE); Cocaine NEGATIVE (NEGATIVE); METHAMPHETAM NEGATIVE (NEGATIVE); Methadone NEGATIVE (NEGATIVE); Opiates NEGATIVE (NEGATIVE); Phencyclidine NEGATIVE (NEGATIVE); THC Cannibis NEGATIVE (NEGATIVE)
[2023-07-01] MEDS ORDERED: NA CHLORIDE 0.9% 200 ML ONE (23:29)
[2023-07-01] MEDS ORDERED: VALPROATE NA 500 MG/5 ML INJ IV ONE (23:29)
[2023-07-01] MEDS ORDERED: LEVETIRACETAM 500 MG/5 ML VIAL IV ONE (23:29)
--- NOTE | 2023-07-02 00:30 | ER ---
Nurse's Notes [facility] Name: Tabatha Chambers Age: 57 yrs Sex: Female : 1965 Arrival Date: 07/01/2023 Time: 22:01 Bed 14 Private MD: Diagnosis: Epileptic seizures related to external causes, not intractable;Pain in left knee;Obesity, unspecified;Bipolar disorder, unspecified;Schizophrenia, unspecified Presentation: 06/30 22:06 Chief complaint: EMS states: toned out for seizure. No postictal state noted by EMS. me1 Coronavirus screen: Vaccine status: Patient reports being unvaccinated. Ebola Screen: No symptoms or risks identified at this time. Initial Sepsis Screen: Does the patient meet any 2 criteria? No. Patient's initial sepsis screen is negative. Does the patient have a suspected source of infection? No. Patient's initial sepsis screen is negative. Risk Assessment: Do you want to hurt yourself or someone else? Patient reports no desire to harm self or others. Care prior to arrival: IV initiated. 20 GA, in the left antecubital area. 22:06 Method Of Arrival: EMS: [facility] 22:06 Acuity: VERO 3 [facility] 22:06 Onset of symptoms was July 01, 2023. Care prior to arrival: IV initiated. 22 GA, in me1 the right hand, Glucose check: 157. Triage Assessment: 22:08 General: Appears uncomfortable, obese, Behavior is calm, cooperative, appropriate for [facility] age, Reports. General: Reports Per EMS patient had a possible seizure. She had tonic clonic motion with her arms only, no incontinence, no postictal period noted after seizure. Pain: Complains of pain in left knee Pain does not radiate. Pain currently is 8 out of 10 on a pain scale. Pain began Is continuous. Neuro: Level of Consciousness is awake, alert, obeys commands, Oriented to person, place, time, situation, Appropriate for age. Neuro:. Cardiovascular: Capillary refill < 3 seconds Patient's skin is warm and dry. Respiratory: Airway is patent Respiratory effort is even, unlabored, Respiratory pattern is regular, symmetrical. GI: No signs and/or symptoms were reported involving the gastrointestinal system. : No signs and/or symptoms were reported regarding the genitourinary system. Derm: Skin is intact, Skin is pink, warm \T\ dry. Musculoskeletal: Reports pain in back and left knee. Historical: - Allergies: 22:08 No Known Allergies; me1 - PMHx: 22:08 Bipolar disorder; UTI; Schizophrenia; Hypertension; Seizures; me1 - PSHx: 22:08 ankle SX; tubes tied; Cholecystectomy; me1 - Immunization history:: Adult Immunizations unknown. - Infectious Disease History:: Denies. - Social history:: Smoking status: Patient denies any tobacco usage or history of. - Family history:: not pertinent. Screenin:14 [facility] ED Fall Risk Assessment (Adult) History of falling in the last 3 months, me1 including since admission No falls in past 3 months (0 pts) Confusion or Disorientation No (0 pts) Intoxicated or Sedated No (0 pts) Impaired Gait No (0 pts) Mobility Assist Device Used No (0 pt) Altered Elimination No (0 pt) Score/Fall Risk Level 0 - 2 = Low Risk Maintained a safe environment, Provided non-skid footwear, Hourly rounding (assess needs \T\ fall precautionary measures) done. Abuse screen: Denies threats or abuse. Nutritional screening: No deficits noted. Tuberculosis screening: No symptoms or risk factors identified. Assessment: 22:14 General: See triage assessment.. me1 22:55 General: Patient denies SI and HI . me1 07/01 00:37 General: Appears in no apparent distress. comfortable, Behavior is calm, cooperative. lg3 Pain: Denies pain. Neuro: No deficits noted. Taylor Agitation-Sedation Scale (RASS): 0 - Alert and Calm Level of Consciousness is awake, alert, obeys commands, Oriented to person, place, time, situation. Cardiovascular: No deficits noted. Denies chest pain, shortness of breath, Capillary refill < 3 seconds Clubbing of nail beds is absent JVD is absent Patient's skin is warm and dry. Respiratory: No deficits noted. Airway is patent Respiratory effort is even, unlabored, Respiratory pattern is regular, symmetrical. GI: No deficits noted. No signs and/or symptoms were reported involving the gastrointestinal system. Abdomen is round non-distended, obese. : No deficits noted. No signs and/or symptoms were reported regarding the genitourinary system. EENT: No deficits noted. No signs and/or symptoms were reported regarding the EENT system. Derm: No deficits noted. No signs and/or symptoms reported regarding the dermatologic system. Skin is intact, is healthy with good turgor, Skin is dry, Skin is normal, Skin temperature is warm. Musculoskeletal: No deficits noted. No signs and/or symptoms reported regarding the musculoskeletal system. Circulation, motion, and sensation intact. Range of motion: intact in all extremities. Vital Signs: 06/30 22:06 BP 131 / 96; Pulse 93; Resp 17; Temp 98.4; Pulse Ox 99% on R/A; Weight 102.06 kg; me1 Height 5 ft. 5 in. ; Pain 8/10; 23:46 BP 130 / 78; Pulse 83; Resp 18; Pulse Ox 100% on R/A; rv1 07/01 00:37 BP 136 / 82; Pulse 91; Resp 17 S; Temp 98.1; Pulse Ox 100% on R/A; lg3 06/30 22:06 Body Mass Index 37.44 (102.06 kg, 165.1 cm) pr1 06/30 22:06 Pain Scale: Adult me1 [place] Coma Score: 06/30 22:08 Eye Response: spontaneous(4). Motor Response: obeys commands(6). Verbal Response: me1 oriented(5). Total: 15. 22:08 Eye Response: spontaneous(4). Motor Response: obeys commands(6). Verbal Response: me1 oriented(5). Total: 15. NIH Stroke Scale Scores: 23:33 NIHSS Score: 0 [facility] ED Course: 22:02 Patient arrived in ED. jj6 22:06 Liz Robles, MARION is Primary Nurse. pr1 22:08 Triage completed. me1 22:08 Arm band placed on Patient placed in an exam room. me1 22:14 Patient has correct armband on for positive identification. Bed in low position. Call [facility] light in reach. Side rails up X2. Provided Education on: POC. Verbalized understanding,. 22:14 No provider procedures requiring assistance completed. Maintain EMS IV. Dressing me1 intact. Good blood return noted. Site clean \T\ dry. Gauge \T\ site: 20 LAC and 22 R hand.. 22:15 Christophe Mayer MD is Attending Physician. [facility] 22:15 Seizure precautions initiated. Client placed on continuous cardiac and pulse oximetry me1 monitoring. NIBP monitoring applied. monitor technician on. Pulse ox on. NIBP on. 22:24 Initial lab(s) drawn, by me, sent to lab. EKG done, by ED staff, reviewed by Christophe Mayer MD. 22:54 Urinalysis w/ reflexes Sent. me1 22:54 Urine Drug Screen Sent. me1 22:55 Urine collected: straight cath specimen, cloudy. me1 23:21 Valproic Acid (depakote) Sent. me1 23:47 Knee Left 3 View XRAY In Process Unspecified. EDMS 07/01 00:30 Mikey Bae MD is Referral Physician. [facility] 00:30 Chalino Pollack MD is Referral Physician. edwardo 00:37 IV discontinued, intact, bleeding controlled, No redness/swelling at site. Pressure lg3 dressing applied. Administered Medications: 06/30 22:45 Drug: NS 0.9% IV 1000 ml IV at 1 bolus Per protocol; 1000 mL bolus Route: IV; Rate: 1 me1 bolus; Site: left antecubital; 07/01 00:40 Follow up: Response: No adverse reaction; IV Status: Completed infusion; IV Intake: lg3 1000ml 06/30 23:32 Drug: Depacon IV 500 mg 5 ml IV at calculated rate once Volume: 5 ml; Route: IV; Rate: me1 calculated rate; Site: left antecubital; 23:53 Follow up: Response: No adverse reaction; IV Status: Completed infusion me1 23:53 Drug: Keppra IV 1000 mg IV at per protocol once Route: IV; Rate: per protocol; Site: [facility] left antecubital; 07/01 00:39 Follow up: Response: No adverse reaction; IV Status: Completed infusion; IV Intake: [id number] Medication: 06/30 22:14 VIS not applicable for this client. me1 Intake: 07/01 00:39 IV: 50ml; Total: 50ml. lg3 00:40 IV: 1000ml; Total: 1050ml. lg3 Outcome: 00:30 Discharge ordered by . edwardo 00:37 Discharged to home via wheelchair, with family, lg3 00:37 Condition: stable 00:37 Discharge instructions given to patient, Instructed on discharge instructions, follow up and referral plans. medication usage, Demonstrated understanding of instructions, follow-up care, medications, Prescriptions given X 3, 00:39 Patient left the ED. lg3 NIH Stroke Scale - NIH Stroke Score Date: 07/01/2023 Time: 23:33 Total Score = 0 10. Dysarthria (speech clarity - read or repeat words) - 0(Normal) 11. Extinction and Inattention (visual/tactile/auditory/spatial/personal) - 0(No abnormality) 1a. Level of Consciousness (LOC) - 0(Alert) 1b. Level of Consciousness (LOC) (Month \T\ Age) - 0(Both) 1c. LOC Commands (Open \T\ Closes Eyes/Cath Lab) - 0(Both) 2. Best Gaze (Lateral Gaze Paresis) - 0(Normal) 3. Visual Field Loss - 0(No visual loss) 4. Facial Palsy - 0(Normal) 5a. Left Arm: Motor (10-second hold) - 0(No drift) 5b. Right Arm: Motor (10-second hold) - 0(No drift) 6a. Left Leg: Motor (5-second hold - always test supine) - 0(No drift) 6b. Right Leg: Motor (5-second hold - always test supine) - 0(No drift) 7. Limb Ataxia (finger/nose \T\ heel/kent - test with eyes open) - 0(Absent) 8. Sensory Loss (pinprick arms/legs/face) - 0(Normal) 9. Best Language: Aphasia (description/naming/reading) - 0(No aphasia) Initials: edwardo Signatures: Dispatcher [employer] Christophe Manriquez MD MD cha Able, Lacie, RN RN lg3 Stacy Tapia jj6 Yeimy Garcia rv1 Liz Robles RN RN me1
--- NOTE | 2023-07-02 00:30 | EDPHYS ---
Physician Documentation [facility] Name: Tabatha Chambers Age: 57 yrs Sex: Female : 1965 Arrival Date: 07/01/2023 Time: 22:01 Bed 14 Private MD: Christophe Leong HPI: 06/30 23:33 This 57 yrs old Female presents to ER via EMS with complaints of Probable edwardo Seizure. 23:33 The patient presents after having a single isolated seizure, that lasted an unknown edwardo period of time. Character of seizure(s): Loss of consciousness: the patient did not lose consciousness, Motor activity: generalized, Incontinence: none, Apnea: the patient did not experience apnea, Circulation: the patient did not experience evidence of pulse disturbance. Seizure onset: just prior to arrival. Context: the seizure(s) was witnessed, by family. Seizure Hx: Last seizure: The patient's last seizure was approximately 2 week(s) ago. Associated injury: Left lower extremity: left knee, pain. The patient has experienced similar episodes in the past, multiple times. Historical: - Allergies: 22:08 No Known Allergies; me1 - PMHx: 22:08 Bipolar disorder; UTI; Schizophrenia; Hypertension; Seizures; me1 - PSHx: 22:08 ankle SX; tubes tied; Cholecystectomy; me1 - Immunization history:: Adult Immunizations unknown. - Infectious Disease History:: Denies. - Social history:: Smoking status: Patient denies any tobacco usage or history of. - Family history:: not pertinent. ROS: 23:33 Constitutional: Negative for fever, chills, and weight loss, Eyes: Negative for injury, edwardo pain, redness, and discharge, ENT: Negative for injury, pain, and discharge, Neck: Negative for injury, pain, and swelling, Cardiovascular: Negative for chest pain, palpitations, and edema, Respiratory: Negative for shortness of breath, cough, wheezing, and pleuritic chest pain, Abdomen/GI: Negative for abdominal pain, nausea, vomiting, diarrhea, and constipation, Back: Negative for injury and pain, : Negative for injury, bleeding, discharge, and swelling, Skin: Negative for injury, rash, and discoloration, Psych: Negative for depression, anxiety, suicide ideation, homicidal ideation, and hallucinations, Allergy/Immunology: Negative for hives, rash, and allergies, Endocrine: Negative for neck swelling, polydipsia, polyuria, polyphagia, and marked weight changes, Hematologic/Lymphatic: Negative for swollen nodes, abnormal bleeding, and unusual bruising, 23:33 MS/extremity: Positive for pain, of the left leg, 23:33 Neuro: Negative for altered mental status, Exam: 23:33 Constitutional: This is a well developed, well nourished patient who is awake, alert, edwardo and in no acute distress. Head/Face: Normocephalic, atraumatic. Eyes: Pupils equal round and reactive to light, extra-ocular motions intact. Lids and lashes normal. Conjunctiva and sclera are non-icteric and not injected. Cornea within normal limits. Periorbital areas with no swelling, redness, or edema. ENT: Nares patent. No nasal discharge, no septal abnormalities noted. Tympanic membranes are normal and external auditory canals are clear. Oropharynx with no redness, swelling, or masses, exudates, or evidence of obstruction, uvula midline. Mucous membranes moist. Neck: Trachea midline, no thyromegaly or masses palpated, and no cervical lymphadenopathy. Supple, full range of motion without nuchal rigidity, or vertebral point tenderness. No Meningismus. Chest/axilla: Normal chest wall appearance and motion. Nontender with no deformity. No lesions are appreciated. Cardiovascular: Regular rate and rhythm with a normal S1 and S2. No gallops, murmurs, or rubs. Normal PMI, no JVD. No pulse deficits. Respiratory: Lungs have equal breath sounds bilaterally, clear to auscultation and percussion. No rales, rhonchi or wheezes noted. No increased work of breathing, no retractions or nasal flaring. Abdomen/GI: Soft, non-tender, with normal bowel sounds. No distension or tympany. No guarding or rebound. No evidence of tenderness throughout. Back: No spinal tenderness. No costovertebral tenderness. Full range of motion. Skin: Warm, dry with normal turgor. Normal color with no rashes, no lesions, and no evidence of cellulitis. Neuro: Awake and alert, GCS 15, oriented to person, place, time, and situation. Cranial nerves II-XII grossly intact. Motor strength 5/5 in all extremities. Sensory grossly intact. Cerebellar exam normal. Normal gait. Psych: Awake, alert, with orientation to person, place and time. Behavior, mood, and affect are within normal limits. 23:33 Musculoskeletal/extremity: ROM: limited active range of motion due to pain, limited passive range of motion due to pain, Circulation is intact in all extremities. Sensation intact. Compartment Syndrome exam of affected extremity: is normal. DVT Exam: no swelling, negative Homans' sign noted on exam, no appreciated bluish discoloration, no erythema, no increased warmth, pain, tenderness, 23:56 ECG was reviewed by the Attending Physician. [facility] Vital Signs: 22:06 BP 131 / 96; Pulse 93; Resp 17; Temp 98.4; Pulse Ox 99% on R/A; Weight 102.06 kg; me1 Height 5 ft. 5 in. ; Pain 8/10; 23:46 BP 130 / 78; Pulse 83; Resp 18; Pulse Ox 100% on R/A; rv1 07/01 00:37 BP 136 / 82; Pulse 91; Resp 17 S; Temp 98.1; Pulse Ox 100% on R/A; lg3 06/30 22:06 Body Mass Index 37.44 (102.06 kg, 165.1 cm) ca1 06/30 22:06 Pain Scale: Adult [facility] NIH Stroke Scale Scores: 06/30 23:33 NIHSS Score: 0 [facility] [place] Coma Score: 22:08 Eye Response: spontaneous(4). Motor Response: obeys commands(6). Verbal Response: me1 oriented(5). Total: 15. 22:08 Eye Response: spontaneous(4). Motor Response: obeys commands(6). Verbal Response: me1 oriented(5). Total: 15. MDM: 22:15 Patient medically screened. edwardo 23:37 Differential diagnosis: cerebral vascular accident, drug overdose, cardiac arrhythmia, edwardo seizure, TIA. Data reviewed: vital signs, nurses notes, lab test result(s), EKG, radiologic studies, plain films. Consideration of Admission/Observation Escalation of care including admission/observation considered. I considered the following discharge prescriptions or medication management in the emergency department Medications were administered in the Emergency Department. See MAR. Independent interpretation of the following test(s) in the Emergency Department EKG: See my EKG interpretation above. Test considered but Not performed: MRI: NO MRI BRAIN. Historians other than the Patient: PT WELL INFORMED. Care significantly affected by the following chronic conditions: Hypertension, Obesity, BIPOLAR, SEIZURE DO. Counseling: I had a detailed discussion with the patient and/or guardian regarding the historical points, exam findings, and any diagnostic results supporting the discharge/admit diagnosis, lab results, radiology results, the need for outpatient follow up, for definitive care, a family practitioner, a neurologist, a orthopedic surgeon. 06/30 22:19 Order name: Acetaminophen; Complete Time: 23:17 [facility] 06/30 22:19 Order name: Basic Metabolic Panel; Complete Time: 23:17 [facility] 06/30 22:19 Order name: CBC with Diff; Complete Time: 23:17 [facility] 06/30 22:19 Order name: ETOH Level; Complete Time: 23:55 [facility] 06/30 22:19 Order name: Hepatic Function; Complete Time: 23:17 06/30 22:19 Order name: PT-INR; Complete Time: 23:17 06/30 22:19 Order name: Test, Urine; Complete Time: 23:17 [facility] 06/30 22:19 Order name: Ptt, Activated; Complete Time: 23:17 [facility] 06/30 22:19 Order name: Salicylate; Complete Time: 23:17 [facility] 06/30 22:19 Order name: Urinalysis w/ reflexes; Complete Time: 23:17 [facility] 06/30 22:19 Order name: Urine Drug Screen; Complete Time: 23:32 [facility] 06/30 23:17 Order name: Valproic Acid (depakote); Complete Time: 00:29 06/30 23:32 Order name: Knee Left 3 View XRAY 06/30 22:19 Order name: EKG; Complete Time: 22:20 [facility] 06/30 22:19 Order name: EKG - Nurse/Tech; Complete Time: 22:24 [facility] 06/30 22:19 Order name: IV Saline Lock; Complete Time: 22:24 [facility] 06/30 22:19 Order name: Labs collected and sent; Complete Time: 22:24 [facility] 06/30 22:19 Order name: Suicide Screening ([place]); Complete Time: 22:54 06/30 22:19 Order name: Seizure Precautions; Complete Time: 22:24 [facility] EC:56 Rate is 92 beats/min. Rhythm is regular. QRS [place] is Normal. CA interval is normal. QT edwardo interval is normal. No Q waves. T waves are Normal. No ST changes noted. Clinical impression: NSR w/ Non-specific ST/T Changes and No evidence of ischemia. Interpreted by me. Reviewed by me. Administered Medications: 22:45 Drug: NS 0.9% IV 1000 ml IV at 1 bolus Per protocol; 1000 mL bolus Route: IV; Rate: 1 me1 bolus; Site: left antecubital; 07/01 00:40 Follow up: Response: No adverse reaction; IV Status: Completed infusion; IV Intake: lg3 1000ml 06/30 23:32 Drug: Depacon IV 500 mg 5 ml IV at calculated rate once Volume: 5 ml; Route: IV; Rate: me1 calculated rate; Site: left antecubital; 23:53 Follow up: Response: No adverse reaction; IV Status: Completed infusion me1 23:53 Drug: Keppra IV 1000 mg IV at per protocol once Route: IV; Rate: per protocol; Site: [facility] left antecubital; 07/01 00:39 Follow up: Response: No adverse reaction; IV Status: Completed infusion; IV Intake: [id number] Disposition Summary: 07/02/23 00:30 Discharge Ordered Notes: Location: Home edwardo Problem: new edwardo Symptoms: have improved edwardo Condition: Stable edwardo Diagnosis - Epileptic seizures related to external causes, not intractable edwardo - Pain in left knee edwardo - Obesity, unspecified edwardo - Bipolar disorder, unspecified edwardo - Schizophrenia, unspecified edwardo Followup: edwardo - With: Private Physician - When: 2 - 3 days - Reason: Recheck today's complaints, Continuance of care, Re-evaluation by your physician Followup: edwardo - With: Mikey Bae MD - When: 1 - 2 days - Reason: Recheck today's complaints, Re-evaluation by your physician Followup: edwardo - With: Chalino Pollack MD - When: 2 - 3 days - Reason: Recheck today's complaints, Re-evaluation by your physician Discharge Instructions: - Discharge Summary Sheet edwardo - Joint Pain edwardo - Musculoskeletal Pain edwardo - Obesity, Adult edwardo - Seizure, Adult edwardo - Seizure, Adult, [id number] edwardo - Obesity, Adult, [id number] edwardo Forms: - Medication Reconciliation Form edwardo - Antibiotic Education edwardo - Prescription Opioid Use edwardo - Patient Portal Instructions edwardo - Leadership Thank You Letter edwardo Prescriptions: - diclofenac sodium 50 mg Oral tablet, delayed release (enteric coated) - take 1 tablet ORAL route 2 times per day; 20 tablet; Refills: 0, Product [facility] Selection Permitted - divalproex 500 mg Oral tablet, delayed release (enteric coated) - take 1 tablet ORAL route 2 times per day; 30 tablet; Refills: 0, Product [facility] Selection Permitted - Keppra 750 mg Oral tablet - take 1 tablet ORAL route every 12 hours; 60 tablet; Refills: 0, Product [facility] Selection Permitted NIH Stroke Scale - NIH Stroke Score Date: 07/01/2023 Time: 23:33 Total Score = 0 10. Dysarthria (speech clarity - read or repeat words) - 0(Normal) 11. Extinction and Inattention (visual/tactile/auditory/spatial/personal) - 0(No abnormality) 1a. Level of Consciousness (LOC) - 0(Alert) 1b. Level of Consciousness (LOC) (Month \T\ Age) - 0(Both) 1c. LOC Commands (Open \T\ Closes Eyes/Lastex Operator) - 0(Both) 2. Best Gaze (Lateral Gaze Paresis) - 0(Normal) 3. Visual Field Loss - 0(No visual loss) 4. Facial Palsy - 0(Normal) 5a. Left Arm: Motor (10-second hold) - 0(No drift) 5b. Right Arm: Motor (10-second hold) - 0(No drift) 6a. Left Leg: Motor (5-second hold - always test supine) - 0(No drift) 6b. Right Leg: Motor (5-second hold - always test supine) - 0(No drift) 7. Limb Ataxia (finger/nose \T\ heel/kent - test with eyes open) - 0(Absent) 8. Sensory Loss (pinprick arms/legs/face) - 0(Normal) 9. Best Language: Aphasia (description/naming/reading) - 0(No aphasia) Initials: [facility] Signatures: Dispatcher [employer] Christophe Manriquez MD MD cha Eddleman, Michelle, RN RN me1 AbleTiffany RN lg3 Corrections: (The following items were deleted from the chart) 06/30 22:20 22:20 ACETAMINOPHEN+C.LAB.BRZ ordered. EDMS EDMS 22:20 22:20 BASIC METABOLIC PANEL+C.LAB.BRZ ordered. EDMS EDMS 22:20 22:20 CBC+H.LAB.BRZ ordered. EDMS EDMS 22:20 22:20 ETHANOL+C.LAB.BRZ ordered. EDMS EDMS 22:20 22:20 HEPATIC FUNCTION+C.LAB.BRZ ordered. EDMS EDMS 22:20 22:20 PROTIME (+INR)+COAG.LAB.BRZ ordered. EDMS EDMS 22:20 22:20 Test, Urine+UC.LAB.BRZ ordered. EDMS EDMS 22:20 22:20 PTT, ACTIVATED+COAG.LAB.BRZ ordered. EDMS EDMS 22:20 22:20 SALICYLATE+C.LAB.BRZ ordered. EDMS EDMS 22:20 22:20 Urinalysis+U.LAB.BRZ ordered. EDMS EDMS 22:20 22:20 URINE DRUG SCREEN+UC.LAB.BRZ ordered. EDMS EDMS
[2023-07-02 01:06] VITALS: BP 136/82; TEMP 98.1; O2SAT 100
--- NOTE | 2023-07-02 15:06 | RAD REPORT ---
EXAM DESCRIPTION: Knee Left 3 View 07/02/2023 12:03 AM CDT CLINICAL HISTORY: 57 years, Female, PAIN COMPARISON: None FINDINGS: 3 X-ray views of the left knee (frontal lateral and oblique views) were performed. Bones: No areas of acute bony injuries were demonstrated. Soft tissues: No significant soft tissue swelling. Joints: There is no joint effusion. There are moderate degenerative changes within the 3 compartments of the left knee Others: There are no gross intraosseous lesions. No periosteal reaction were seen. IMPRESSION: No acute bony injuries were demonstrated. Moderate tricompartmental osteoarthritis. Electronically signed by: Peewee Ramirez MD 07/02/2023 12:05 AM CDT Due to temporary technical issues with the PACS/Fluency reporting system, reports are being signed by the in house radiologists without review as a courtesy to insure prompt reporting. The interpreting radiologist is fully responsible for the content of the report
== END 2023-07-02 00:39 | disposition home or self-care (01) ==
LOC: ER 22:01
DX: G40.509 Epileptic seizures related to external causes, not intractable, without status epilepticus (principal); M25.562 Pain in left knee; E66.9 Obesity, unspecified; F20.9 Schizophrenia, unspecified; F31.9 Bipolar disorder, unspecified
CPT/HCPCS: 85025; 81001; 80048; 36415; 81025; 85610; 80076; 80164; 85730; 80307; 73562; 80143; 80179; 82077; J1953; J7030

== ENCOUNTER 2023-08-04 14:27 | Emergency (ER) | payer OTHER ==
[2023-08-04] MEDS ORDERED: ONDANSETRON 4 MG (ODT) TAB ONE ×2 (15:05→15:09)
--- NOTE | 2023-08-04 15:08 | EDPHYS ---
Physician Documentation [facility] Name: Tabatha Chambers Age: 57 yrs Sex: Female : 1965 Arrival Date: 08/04/2023 Time: 14:27 Bed DX4 Private MD: ED Physician Erik Patterson HPI: 08/03 15:03 This 57 yrs old Female presents to ER via Ambulatory with complaints of sp3 Vomiting/Diarrhea, Abdominal Cramping. 15:03 57-year-old female with PMH anxiety, bipolar disease, chronic and recurrent vomiting sp3 and diarrhea presents to the ED for recurrent vomiting. Patient states she has no medication for vomiting. Patient is not currently vomiting or dry heaving. Abdominal cramping is sporadic and minimal. She denies any other symptoms including fever, blood in her emesis or stool, headache, URI symptoms, cough, known sick contacts, travel history, neck pain, chest pain, shortness of breath, [employer] symptoms, symptoms, or any other signs or symptoms on ROS at this time.. 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 - Infectious Disease History:: Denies. - Social history:: Smoking status: Patient denies any tobacco usage or history of. ROS: 15:04 Constitutional: Negative for fever, chills, and weight loss, Eyes: Negative for injury, sp3 pain, redness, and discharge, ENT: Negative for injury, pain, and discharge, Neck: Negative for injury, pain, and swelling, Cardiovascular: Negative for chest pain, palpitations, and edema, Respiratory: Negative for shortness of breath, cough, wheezing, and pleuritic chest pain, Back: Negative for injury and pain, MS/Extremity: Negative for injury and deformity, Skin: Negative for injury, rash, and discoloration, Neuro: Negative for headache, weakness, numbness, tingling, and seizure, Psych: Negative for depression, anxiety, suicide ideation, homicidal ideation, and hallucinations, Allergy/Immunology: Negative for hives, rash, and allergies, Endocrine: Negative for neck swelling, polydipsia, polyuria, polyphagia, and marked weight changes, 15:04 All other systems are negative, Exam: 15:05 Constitutional: This is a well developed, well nourished patient who is awake, alert, sp3 and in no acute distress. Head/Face: Normocephalic, atraumatic. Eyes: Pupils equal round and reactive to light, extra-ocular motions intact. Lids and lashes normal. Conjunctiva and sclera are non-icteric and not injected. Cornea within normal limits. Periorbital areas with no swelling, redness, or edema. Neck: Trachea midline, no thyromegaly or masses palpated, and no cervical lymphadenopathy. Supple, full range of motion without nuchal rigidity, or vertebral point tenderness. No Meningismus. Chest/axilla: Normal chest wall appearance and motion. Nontender with no deformity. No lesions are appreciated. Cardiovascular: Regular rate and rhythm with a normal S1 and S2. No gallops, murmurs, or rubs. Normal PMI, no JVD. No pulse deficits. Respiratory: Lungs have equal breath sounds bilaterally, clear to auscultation and percussion. No rales, rhonchi or wheezes noted. No increased work of breathing, no retractions or nasal flaring. Abdomen/GI: Soft, non-tender, with normal bowel sounds. No distension or tympany. No guarding or rebound. No evidence of tenderness throughout. Back: No spinal tenderness. No costovertebral tenderness. Full range of motion. Skin: Warm, dry with normal turgor. Normal color with no rashes, no lesions, and no evidence of cellulitis. MS/ Extremity: Pulses equal, no cyanosis. Neurovascular intact. Full, normal range of motion. Neuro: Awake and alert, GCS 15, oriented to person, place, time, and situation. Cranial nerves II-XII grossly intact. Motor strength 5/5 in all extremities. Sensory grossly intact. Cerebellar exam normal. Normal gait. Psych: Awake, alert, with orientation to person, place and time. Behavior, mood, and affect are within normal limits. Vital Signs: 15:01 BP 149 / 77; Pulse 85; Resp 16; Temp 99; Pulse Ox 97% ; Height 5 ft. 5 in. ; db MDM: 15:03 Patient medically screened. sp3 15:05 Data reviewed: vital signs, nurses notes, old medical records. ED course: 57-year-old sp3 female with recurrent vomiting now fully resolved. Vital signs are normal and she has no current symptoms in the ED. She had called her physician who told her to come to the ED in case she needed intervention. Clinically she is not dehydrated. Abdomen is soft and nontender and nonsurgical. No peritoneal signs are present. Will give ondansetron ODT 1 dose and discharged her with p.o. prescription follow back up with her PCP. No further workup indicated in the ED.. Administered Medications: 15:04 Drug: Ondansetron PO 4 mg PO once Route: PO; db 15:12 Follow up: Response: No adverse reaction db Disposition Summary: 08/04/23 15:08 Discharge Ordered Notes: Location: Home sp3 Condition: Stable sp3 Diagnosis - Vomiting sp3 Followup: sp3 - With: Private Physician - When: Upon discharge from the Emergency Department - Reason: Continuance of care Discharge Instructions: - Discharge Summary Sheet sp3 - Vomiting, Adult sp3 Forms: - Medication Reconciliation Form sp3 - Antibiotic Education sp3 - Prescription Opioid Use sp3 - Patient Portal Instructions sp3 - Leadership Thank You Letter sp3 Prescriptions: - ondansetron 8 mg Oral Tablet,disintegrating - take 1 tablet ORAL route every 12 hours; 15 tablet; Refills: 0, Product sp3 Selection Permitted Signatures: Erik Patterson MD MD sp3 Angie Patel, RN RN db
--- NOTE | 2023-08-04 15:08 | ER ---
Nurse's Notes [facility] Name: Tabatha Chambers Age: 57 yrs Sex: Female : 1965 Arrival Date: 08/04/2023 Time: 14:27 Bed DX4 Private MD: Diagnosis: Vomiting Presentation: 08/03 15:01 Chief complaint: Patient states: DIARRHEA, VOMITING AND ABD CRAMPING X 3 WEEKS WORSE db YESTERDAY. HAS BEEN SEEN FOR SYMPTOMS. Coronavirus screen: Client denies travel out of the [place] in the last 14 days. At this time, the client does not indicate any symptoms associated with coronavirus-19. Ebola Screen: Patient negative for fever greater than or equal to 101.5 degrees Fahrenheit, and additional compatible Ebola Virus Disease symptoms Patient denies exposure to infectious person. Patient denies travel to an Ebola-affected area in the 21 days before illness onset. No symptoms or risks identified at this time. Initial Sepsis Screen: Does the patient meet any 2 criteria? No. Patient's initial sepsis screen is negative. Does the patient have a suspected source of infection? No. Patient's initial sepsis screen is negative. Risk Assessment: Do you want to hurt yourself or someone else? Patient reports no desire to harm self or others. Onset of symptoms was August 04, 2023. 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 - Infectious Disease History:: Denies. - Social history:: Smoking status: Patient denies any tobacco usage or history of. Screenin:11 [facility] ED Fall Risk Assessment (Adult) History of falling in the last 3 months, db including since admission No falls in past 3 months (0 pts) Confusion or Disorientation No (0 pts) Intoxicated or Sedated No (0 pts) Impaired Gait No (0 pts) Mobility Assist Device Used No (0 pt) Altered Elimination No (0 pt) Score/Fall Risk Level 0 - 2 = Low Risk Oriented to surroundings, Maintained a safe environment. Abuse screen: Denies threats or abuse. Denies injuries from another. Nutritional screening: No deficits noted. Tuberculosis screening: No symptoms or risk factors identified. Assessment: 15:11 Reassessment: Patient appears in no apparent distress at this time. Patient and/or db family updated on plan of care and expected duration. Pain level reassessed. Patient is alert, oriented x 3, equal unlabored respirations, skin warm/dry/pink. General: Appears in no apparent distress. Vital Signs: 15:01 BP 149 / 77; Pulse 85; Resp 16; Temp 99; Pulse Ox 97% ; Height 5 ft. 5 in. ; db ED Course: 14:33 Patient arrived in ED. mg5 14:38 Erik Patterson MD is Attending Physician. sp3 15:03 Triage completed. db 15:03 Arm band placed on. db 15:11 Patient has correct armband on for positive identification. Bed in low position. db Provided Education on: DISCHARGE. 15:11 No provider procedures requiring assistance completed. Patient did not have IV access db during this emergency room visit. Administered Medications: 15:04 Drug: Ondansetron PO 4 mg PO once Route: PO; db 15:12 Follow up: Response: No adverse reaction db Medication: 15:11 VIS not applicable for this client. db Outcome: 15:08 Discharge ordered by . sp3 15:11 Discharged to home ambulatory, db 15:11 Condition: stable 15:11 Discharge instructions given to patient, Instructed on discharge instructions, follow up and referral plans. Prescriptions given X 1, 15:12 Patient left the ED. db Signatures: Erik Patterson MD MD sp3 Angie Patel, RN RN db Baljinder Bisi mg5
[2023-08-04 15:20] VITALS: BP 149/77; TEMP 99; O2SAT 97
== END 2023-08-04 15:12 | disposition home or self-care (01) ==
LOC: ER 14:27
DX: R11.10 Vomiting, unspecified (principal); R19.7 Diarrhea, unspecified
CPT/HCPCS: 99283; Q0162 ×2

== ENCOUNTER 2023-10-09 20:55 | Emergency (ER) | payer OTHER ==
[2023-10-09] MEDS ORDERED: KETOROLAC 30 MG/ML INJ ONE (21:43)
[2023-10-09] MEDS ORDERED: ONDANSETRON 4 MG/2 ML VIAL ONE (21:43)
[2023-10-09] MEDS ORDERED: HALOPERIDOL LACT 5 MG/ML INJ ONE (21:43)
[2023-10-09] MEDS ORDERED: NA CHLORIDE 0.9% 1,000 ML ONE (21:44)
[2023-10-09] MEDS ORDERED: MORPHINE 4 MG/ML SYR ONE (21:44)
[2023-10-09] MEDS ORDERED: FAMOTIDINE 20 MG/2 ML VIAL IV ONE (21:44)
[2023-10-09 21:51] LABS: Absolute Basophils 0.1 K/uL (0-0.5); Absolute Eosinophils 0.2 K/uL (0-0.5); Absolute Lymphocytes (CBC) 1.4 K/uL (0.7-4.9); Absolute Monocytes 0.2 K/uL (0.1-1.3); Absolute Neutrophil 6.1 K/uL (1.8-8.0); Basophils % 0.7 % (0-1.3); Hematocrit 38.5 % (36.0-45.0); Hemoglobin 12.2 g/dL (12.0-15.0); Lymphocytes % 17.8 % (15.3-44.8); MCH 26.4 pg (27.0-35.0); MCHC 31.8 g/dL (32.0-36.0); MCV 82.9 fL (80-100); MPV 7.8 fL (7.6-11.3); Monocytes % 3.1 % (3.3-12.3); Neutrophils % 76.4 % (41.7-73.7); Platelets 282 thou/uL (152-406); RBC Red Blood Cell Count 4.64 M/uL (3.86-4.86); Red Cell Distribution Width 15.5 % (12.1-15.2)
[2023-10-09 22:09] LABS: Albumin/Globulin Ratio 0.7 (1.1-1.8); Anion Gap 6.7 mEq/L (5.0-15.0); Bilirubin Total 0.2 mg/dL (0.2-1.0); Globulin 4.4 g/dL (2.3-3.5); Potassium 4.7 mEq/L (3.5-5.1); Protein, Total 7.4 g/dL (6.4-8.2)
--- NOTE | 2023-10-09 22:20 | RAD REPORT ---
EXAM DESCRIPTION: CT - Abdomen Pelvis Wo Contrast - 10/09/2023 10:05 pm CLINICAL HISTORY: Abdominal pain. ABD PAIN COMPARISON: <Comparisons> TECHNIQUE: CT imaging of the abdomen and pelvis was performed without contrast. Solid organ, bowel a nd vascular assessment is limited due to lack of IV and oral contrast. All CT scans are performed using dose optimization technique as appropriate and may include automated exposure control or mA/KV adjustment according to patient size. FINDINGS: The lower lung rosenbaum are clear.Cholecystectomy clips. The liver, spleen, pancreas, adrenal glands and kidneys are within normal limits for a limited non-co ntrast examination. No bowel obstruction, free air, free fluid or abscess. The appendix is normal. The osseous structures are within normal limits. IMPRESSION: No acute intra-abdominal or pelvic findings. A limited non-contrast examination was performed as detailed.
[2023-10-09 23:56] LABS: Sqamous Epithelial <5 /HPF (None Seen); Urine Bacteria <20 /HPF (<20); Urine Bilirubin NEGATIVE (Negative); Urine Blood Negative (Negative); Urine Clarity Clear (Clear); Urine Color Light-Yellow (Yellow); Urine Culture Reflex Order NOT NEEDED; Urine Glucose NEGATIVE (Negative); Urine Ketones NEGATIVE (Negative); Urine Microscopic Reflex YN ORDER UMIC; Urine Mucus Slight /HPF (None Seen); Urine Nitrite NEGATIVE (Negative); Urine Protein NEGATIVE (Negative); Urine RBC <5 /HPF (None Seen); Urine Urobilinogen Normal (Normal); Urine WBC <5 /HPF (<5)
--- NOTE | 2023-10-10 01:48 | ER ---
Nurse's Notes [facility] Name: Tabatha Chambers Age: 57 yrs Sex: Female : 1965 Arrival Date: 10/09/2023 Time: 20:55 Bed 19 Private MD: Diagnosis: Upper abdominal pain, unspecified;Acute abdominal pain Presentation: 10/08 21:03 Chief complaint: EMS states: toned out for abdominal pain, body aches and chills. me1 Coronavirus screen: Vaccine status: Patient reports being unvaccinated. Ebola Screen: No symptoms or risks identified at this time. Initial Sepsis Screen: Does the patient meet any 2 criteria? No. Patient's initial sepsis screen is negative. Does the patient have a suspected source of infection? No. Patient's initial sepsis screen is negative. Risk Assessment: Do you want to hurt yourself or someone else? Patient reports no desire to harm self or others. Onset of symptoms is unknown. 21:03 Method Of Arrival: EMS: [facility] 21:03 Acuity: VERO 3 me1 Triage Assessment: 21:17 General: Appears uncomfortable, obese, well groomed, well developed, well nourished, me1 Behavior is calm, cooperative, appropriate for age, Reports body aches, chills and abdominal pain that is sharp and burning and pain has been getting worse over the past month. Pain: Complains of pain in epigastric area Pain does not radiate. Pain currently is 10 out of 10 on a pain scale. Quality of pain is described as burning, sharp, Pain began suddenly, Is continuous. EENT: No signs and/or symptoms were reported regarding the EENT system. Neuro: Level of Consciousness is awake, alert, obeys commands, Oriented to person, place, time, situation, Appropriate for age. Cardiovascular: Patient's skin is warm and dry. Respiratory: Airway is patent Respiratory effort is even, unlabored, Respiratory pattern is regular, symmetrical. GI: Reports lower abdominal pain, upper abdominal pain. : No signs and/or symptoms were reported regarding the genitourinary system. Derm: Skin is intact, is healthy with good turgor, Skin is pink, warm \T\ dry. Musculoskeletal: No signs and/or symptoms reported regarding the musculoskeletal system. 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 - Infectious Disease History:: Denies. - Social history:: Smoking status: Patient denies any tobacco usage or history of. - Family history:: not pertinent. Screenin:29 [facility] ED Fall Risk Assessment (Adult) History of falling in the last 3 months, me1 including since admission No falls in past 3 months (0 pts) Confusion or Disorientation No (0 pts) Intoxicated or Sedated No (0 pts) Impaired Gait No (0 pts) Mobility Assist Device Used No (0 pt) Altered Elimination No (0 pt) Score/Fall Risk Level 0 - 2 = Low Risk Maintained a safe environment, Provided non-skid footwear, Hourly rounding (assess needs \T\ fall precautionary measures) done. Abuse screen: Denies threats or abuse. Nutritional screening: No deficits noted. Tuberculosis screening: No symptoms or risk factors identified. Assessment: 21:29 General: See triage assessment. . me1 10/09 00:00 General: Appears in no apparent distress. uncomfortable, Behavior is calm, cooperative, jw7 appropriate for age. Pain: Complains of pain in abdomen and epigastric area Pain does not radiate. Pain currently is 5 out of 10 on a pain scale. Quality of pain is described as burning, sharp, Pain began suddenly, Is continuous. 00:00 Neuro: Level of Consciousness is awake, alert, obeys commands, Oriented to person, jw7 place, time, situation, Appropriate for age. Cardiovascular: Heart tones S1 S2 present Capillary refill < 3 seconds Clubbing of nail beds is absent JVD is absent Patient's skin is warm and dry. Respiratory: Airway is patent Trachea midline Respiratory effort is even, unlabored, Respiratory pattern is regular, symmetrical. GI: Abdomen is non-distended, Bowel sounds present X 4 quads. Abd is soft Abdomen is tender to palpation. : No deficits noted. No signs and/or symptoms were reported regarding the genitourinary system. EENT: No deficits noted. No signs and/or symptoms were reported regarding the EENT system. Derm: Skin is intact, is healthy with good turgor, Skin is dry, Skin is normal, Skin temperature is warm. Musculoskeletal: Circulation, motion, and sensation intact. Range of motion: intact in all extremities. 01:00 Reassessment: Patient appears in no apparent distress at this time. No changes from [facility] previously documented assessment. Patient and/or family updated on plan of care and expected duration. Pain level reassessed. Patient is alert, oriented x 3, equal unlabored respirations, skin warm/dry/pink. 02:00 Reassessment: Patient appears in no apparent distress at this time. No changes from [facility] previously documented assessment. Patient and/or family updated on plan of care and expected duration. Pain level reassessed. Patient is alert, oriented x 3, equal unlabored respirations, skin warm/dry/pink. Vital Signs: 10/08 21:03 BP 152 / 103; Pulse 93; Resp 16; Temp 98.6; Pulse Ox 97% ; Weight 117.93 kg; Height 5 me1 ft. 4 in. ; Pain 10/10; 21:45 BP 132 / 63; Pulse 76; Resp 17; Pulse Ox 100% on R/A; id1 22:46 BP 122 / 58; Pulse 74; Resp 15; Pulse Ox 98% ; id1 23:22 BP 126 / 63; Pulse 72; Resp 14; Pulse Ox 99% ; id1 08 00:15 BP 111 / 69; Pulse 67; Resp 16 S; Pulse Ox 97% on R/A; jw7 01:00 BP 102 / 52; Pulse 67; Resp 16 S; Pulse Ox 100% on R/A; jw7 02:00 BP 107 / 83; Pulse 66; Resp 16 S; Temp 98.4(O); Pulse Ox 100% on R/A; 7 10/08 21:03 Body Mass Index 44.63 (117.93 kg, 162.56 cm) [facility] 10/08 21:03 Pain Scale: Adult me1 [place] Coma Score: 04:21 Eye Response: spontaneous(4). Motor Response: obeys commands(6). Verbal Response: sp4 oriented(5). Total: 15. ED Course: 10/08 21:03 Patient arrived in ED. id1 21:04 Larry Cabrera MD is Attending Physician. sp4 21:04 Triage completed. me1 21:17 Arm band placed on Patient placed in an exam room. me1 21:29 Patient has correct armband on for positive identification. Bed in low position. Call id1 light in reach. Side rails up X2. Provided Education on: POC. Verbalized understanding. . Client placed on continuous cardiac and pulse oximetry monitoring. NIBP monitoring applied. Pulse ox on. NIBP on. 21:29 No provider procedures requiring assistance completed. me1 21:37 CBC with Diff Sent. me1 21:37 CMP Sent. me1 21:37 Lipase Sent. me1 21:38 Initial lab(s) drawn, by id, sent to lab. Inserted saline lock: 22 gauge in left [facility] antecubital area, using aseptic technique. 21:52 CBC with Diff Sent. me1 21:52 CMP Sent. me1 21:52 Lipase Sent. me1 22:06 CT Abd/Pelvis - Without Contrast In Process Unspecified. EDMS 22:49 Liz Robles, RN is Primary Nurse. me1 23:31 Urinalysis w/ reflexes Sent. me1 23:32 Urine collected: clean catch specimen, cloudy. id1 08/04 02:22 IV discontinued, intact, bleeding controlled, No redness/swelling at site. Pressure jw7 dressing applied. Administered Medications: 10/08 21:51 Drug: NS 0.9% IV 1000 ml IV at 1 bolus Per protocol; 1000 mL bolus Route: IV; Rate: 1 me1 bolus; Site: left antecubital; 23:57 Follow up: Response: No adverse reaction; IV Status: Completed infusion; IV Intake: id1 1000ml 21:51 Drug: Famotidine IVP 20 mg IVP once; dilute with 10 mL 0.9% NaCl; give over 2 minutes me1 Route: IVP; Site: left antecubital; 22:50 Follow up: Response: No adverse reaction me1 21:51 Drug: TORadol - Ketorolac IVP 15 mg IVP once Route: IVP; Site: left antecubital; me1 22:58 Follow up: Response: No adverse reaction; Pain is decreased me1 21:51 Drug: Ondansetron IVP 4 mg IVP once; over 2 minutes Route: IVP; Site: left antecubital; me1 22:57 Follow up: Response: No adverse reaction; Nausea is decreased me1 21:51 Not Given (Patient Refused): haloperidol5 mg IVP once me1 21:52 Drug: morphine IVP or IV 4 mg IVP once over 4 mins Route: IVP; Infused Over: 4 mins; me1 Site: left antecubital; 22:58 Follow up: Response: No adverse reaction; Pain is decreased me1 10/09 02:05 Drug: [place] PO 10 mg-325 mg 1 tabs PO once Route: PO; jw7 02:20 Follow up: Response: No adverse reaction; Medication administered at discharge. jw7 02:05 Drug: Dicyclomine PO 20 mg PO once Route: PO; jw7 02:20 Follow up: Response: No adverse reaction; Medication administered at discharge. jw7 Medication: 02:10 VIS not applicable for this client. jw7 Intake: 10/08 23:57 IV: 1000ml; Total: 1000ml. me1 Outcome: 10/09 01:47 Discharge ordered by . frandy 02:10 Discharged to home ambulatory, jw7 02:10 Condition: stable 02:10 Discharge instructions given to patient, Instructed on discharge instructions, follow up and referral plans. medication usage, Demonstrated understanding of instructions, follow-up care, medications, Prescriptions given X 1, 02:10 Patient left the ED. jw7 Signatures: Dispatcher [employer] Chioma Bo RN RN jw7 Larry Cabrera MD MD sp4 Liz Robles RN RN me1 Corrections: (The following items were deleted from the chart) : 02:22 Patient left the ED. jw7 jw7
--- NOTE | 2023-10-10 01:48 | EDPHYS ---
Physician Documentation [facility] Name: Tabatha Chambers Age: 57 yrs Sex: Female : 1965 Arrival Date: 10/09/2023 Time: 20:55 Bed 19 Private MD: ED Physician Larry Cabrera HPI: 10/08 21:04 This 57 yrs old Female presents to ER via EMS with complaints of Abd Pain > 50 sp4 y/o. 10/09 04:21 57-year-old female with history of bipolar disorder, schizophrenia, hypertension sp4 seizures and UTI presents with acute onset diffuse abdominal pain. Presents with EMS. 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 - Infectious Disease History:: Denies. - Social history:: Smoking status: Patient denies any tobacco usage or history of. - Family history:: not pertinent. ROS: 10/09 04:21 Constitutional: Negative for fever, chills, and weight loss, positive for abdominal sp4 pain Eyes: Negative for injury, pain, redness, and discharge, ENT: Negative for injury, pain, and discharge, Neck: Negative for injury, pain, and swelling, Cardiovascular: Negative for chest pain, palpitations, and edema, Respiratory: Negative for shortness of breath, cough, wheezing, and pleuritic chest pain, Abdomen/GI: Negative for abdominal pain, nausea, vomiting, diarrhea, and constipation, Back: Negative for injury and pain, : Negative for injury, bleeding, discharge, and swelling, All other systems are negative, Exam: 04:21 Constitutional: This is a well developed, well nourished patient who is awake, alert, sp4 and in no acute distress. Head/Face: Normocephalic, atraumatic. Eyes: Pupils equal round and reactive to light, extra-ocular motions intact. Lids and lashes normal. Conjunctiva and sclera are not injected. Cornea within normal limits. Periorbital areas with no swelling, redness, or edema. ENT: Nares patent. No nasal discharge, no septal abnormalities noted. Tympanic membranes are normal and external auditory canals are clear. Oropharynx with no redness, swelling, or masses, exudates, or evidence of obstruction, uvula midline. Mucous membranes moist. Neck: Trachea midline, no thyromegaly or masses palpated, and no cervical lymphadenopathy. Supple, full range of motion without nuchal rigidity, or vertebral point tenderness. Chest/axilla: Normal chest wall appearance and motion. Nontender with no deformity. No lesions are appreciated. Cardiovascular: Regular rate and rhythm with a normal S1 and S2. No gallops, murmurs, or rubs. Normal PMI, no JVD. No pulse deficits. Respiratory: Lungs have equal breath sounds bilaterally, clear to auscultation and percussion. No rales, rhonchi or wheezes noted. No increased work of breathing, no retractions or nasal flaring. Abdomen/GI: Soft, with normal bowel sounds. No distension or tympany. No guarding or rebound. Positive diffuse abdominal tenderness. Back: No spinal tenderness. No costovertebral tenderness. Skin: Warm, dry with normal turgor. Normal color with no rashes, no lesions, and no evidence of cellulitis. MS/ Extremity: Pulses equal, no cyanosis. Neurovascular intact. Full, normal range of motion. Neuro: Awake and alert, GCS 15, oriented to person, place, time, and situation. Cranial nerves II-XII grossly intact. Motor strength 5/5 in all extremities. Sensory grossly intact. Psych: Awake, alert, with orientation to person, place and time. Behavior, mood, and affect are within normal limits Vital Signs: 10/08 21:03 BP 152 / 103; Pulse 93; Resp 16; Temp 98.6; Pulse Ox 97% ; Weight 117.93 kg; Height 5 me1 ft. 4 in. ; Pain 10/10; 21:45 BP 132 / 63; Pulse 76; Resp 17; Pulse Ox 100% on R/A; me1 22:46 BP 122 / 58; Pulse 74; Resp 15; Pulse Ox 98% ; me1 23:22 BP 126 / 63; Pulse 72; Resp 14; Pulse Ox 99% ; me1 04 00:15 BP 111 / 69; Pulse 67; Resp 16 S; Pulse Ox 97% on R/A; jw7 01:00 BP 102 / 52; Pulse 67; Resp 16 S; Pulse Ox 100% on R/A; jw7 02:00 BP 107 / 83; Pulse 66; Resp 16 S; Temp 98.4(O); Pulse Ox 100% on R/A; jw7 10/08 21:03 Body Mass Index 44.63 (117.93 kg, 162.56 cm) wv1 10/08 21:03 Pain Scale: Adult me1 [place] Coma Score: 04:21 Eye Response: spontaneous(4). Motor Response: obeys commands(6). Verbal Response: sp4 oriented(5). Total: 15. MDM: 10/08 21:06 Patient medically screened. sp4 10/09 01:35 ED course: EXAM DESCRIPTION: CT - Abdomen Pelvis Wo Contrast - 10/09/2023 10:05 pm sp4 CLINICAL HISTORY: Abdominal pain. ABD PAIN COMPARISON: TECHNIQUE: CT imaging of the abdomen and pelvis was performed without contrast. Solid organ, bowel and vascular assessment is limited due to lack of IV and oral contrast. All CT scans are performed using dose optimization technique as appropriate and may include automated exposure control or mA/KV adjustment according to patient size. FINDINGS: The lower lung rosenbaum are clear.Cholecystectomy clips. The liver, spleen, pancreas, adrenal glands and kidneys are within normal limits for a limited noncontrast examination. No bowel obstruction, free air, free fluid or abscess. The appendix is normal. The osseous structures are within normal limits. IMPRESSION: No acute intra-abdominal or pelvic findings. A limited non-contrast examination was performed as detailed. . 04:21 Differential diagnosis: diverticulitis, Endometriosis, Hepatitis. Data reviewed: vital sp4 signs, nurses notes, EMS record, old medical records, lab test result(s), radiologic studies, CT scan. Consideration of Admission/Observation Escalation of care including admission/observation considered. ED course: Patient's pain is improved. Patient stable for discharge home. 10/08 21:14 Order name: CBC with Diff; Complete Time: 00:20 sp4 10/08 21:14 Order name: CMP; Complete Time: 00:20 sp4 10/08 21:14 Order name: Lipase; Complete Time: 00:20 sp4 10/08 21:14 Order name: Urinalysis w/ reflexes; Complete Time: 00:20 sp4 10/08 21:26 Order name: CT Abd/Pelvis - Without Contrast; Complete Time: 00:20 sp4 10/08 21:14 Order name: IV Saline Lock; Complete Time: 21:37 sp4 10/08 21:14 Order name: Labs collected and sent; Complete Time: 21:37 sp4 Administered Medications: 10/08 21:51 Drug: NS 0.9% IV 1000 ml IV at 1 bolus Per protocol; 1000 mL bolus Route: IV; Rate: 1 me1 bolus; Site: left antecubital; 23:57 Follow up: Response: No adverse reaction; IV Status: Completed infusion; IV Intake: me1 1000ml 21:51 Drug: Famotidine IVP 20 mg IVP once; dilute with 10 mL 0.9% NaCl; give over 2 minutes me1 Route: IVP; Site: left antecubital; 22:50 Follow up: Response: No adverse reaction me1 21:51 Drug: TORadol - Ketorolac IVP 15 mg IVP once Route: IVP; Site: left antecubital; me1 22:58 Follow up: Response: No adverse reaction; Pain is decreased me1 21:51 Drug: Ondansetron IVP 4 mg IVP once; over 2 minutes Route: IVP; Site: left antecubital; me1 22:57 Follow up: Response: No adverse reaction; Nausea is decreased me1 21:51 Not Given (Patient Refused): haloperidol5 mg IVP once me1 21:52 Drug: morphine IVP or IV 4 mg IVP once over 4 mins Route: IVP; Infused Over: 4 mins; me1 Site: left antecubital; 22:58 Follow up: Response: No adverse reaction; Pain is decreased me1 10/09 02:05 Drug: [place] PO 10 mg-325 mg 1 tabs PO once Route: PO; jw7 02:20 Follow up: Response: No adverse reaction; Medication administered at discharge. jw7 02:05 Drug: Dicyclomine PO 20 mg PO once Route: PO; jw7 02:20 Follow up: Response: No adverse reaction; Medication administered at discharge. jw7 Disposition Summary: 10/10/23 01:47 Discharge Ordered Notes: Location: Home sp4 Problem: new sp4 Symptoms: have improved sp4 Condition: Stable sp4 Diagnosis - Upper abdominal pain, unspecified sp4 - Acute abdominal pain sp4 Followup: sp4 - With: Private Physician - When: 7 - 10 days - Reason: Recheck today's complaints Discharge Instructions: - Discharge Summary Sheet sp4 - Abdominal Pain, Adult sp4 Forms: - Patient Portal Instructions sp4 Prescriptions: - dicyclomine 20 mg Oral tablet - take 1 tablet ORAL route 3 times per day PRN abdominal pain; 60 tablet; sp4 Refills: 0, Product Selection Permitted Signatures: Dispatcher [employer] Chioma Bo, RN RN jw7 Larry Cabrera MD MD sp4 Liz Robles RN RN me1 Corrections: (The following items were deleted from the chart) 10/08 21:15 21:15 CBC+H.LAB.BRZ ordered. EDMS EDMS 21:15 21:15 COMPREHENSIVE METABOLIC PANEL+C.LAB.BRZ ordered. EDMS EDMS 21:15 21:15 LIPASE+C.LAB.BRZ ordered. EDMS EDMS 21:15 21:15 Urinalysis+U.LAB.BRZ ordered. EDMS EDMS
[2023-10-10] MEDS ORDERED: DICYCLOMINE HCL 10 MG CAP ONE (01:58)
[2023-10-10] MEDS ORDERED: HYDROCODONE/APAP 10/325 TAB ONE (01:58)
[2023-10-10 07:43] VITALS: O2SAT 100
[2023-10-10 07:45] VITALS: BP 107/83; TEMP 98.4
== END 2023-10-10 02:22 | disposition home or self-care (01) ==
LOC: ER 20:55
DX: R10.10 Upper abdominal pain, unspecified (principal)
CPT/HCPCS: 85025; 81001; 36415; 83690; 80053; 74176; J2405; J7030; 96361; 96374; 96375; 99285; J1630

== ENCOUNTER 2023-11-16 08:21 | Emergency (ER) | payer OTHER ==
[2023-11-16] MEDS ORDERED: NA CHLORIDE 0.9% 1,000 ML ONE (08:35)
[2023-11-16] MEDS ORDERED: ONDANSETRON 4 MG/2 ML VIAL ONE (08:35)
[2023-11-16] MEDS ORDERED: PANTOPRAZOLE 40 MG INJ ONE (08:35)
[2023-11-16 08:54] LABS: Absolute Basophils 0.1 K/uL (0-0.5); Absolute Eosinophils 0.2 K/uL (0-0.5); Absolute Lymphocytes (CBC) 2.2 K/uL (0.7-4.9); Absolute Monocytes 0.2 K/uL (0.1-1.3); Absolute Neutrophil 4.6 K/uL (1.8-8.0); Eosinophils % 2.8 % (0-4.4); Hematocrit 37.4 % (36.0-45.0); Hemoglobin 12.2 g/dL (12.0-15.0); Lymphocytes % 29.9 % (15.3-44.8); MCH 26.5 pg (27.0-35.0); MCHC 32.7 g/dL (32.0-36.0); MCV 81.1 fL (80-100); MPV 7.8 fL (7.6-11.3); Monocytes % 2.9 % (3.3-12.3); Neutrophils % 63.4 % (41.7-73.7); Nucleated Red Blood Cells % 0.1 % (0-0); Platelets 287 thou/uL (152-406); RBC Red Blood Cell Count 4.62 M/uL (3.86-4.86); Red Cell Distribution Width 15.7 % (12.1-15.2)
[2023-11-16 09:53] LABS: Albumin 3.1 g/dL (3.4-5.0); Albumin/Globulin Ratio 0.8 (1.1-1.8); Anion Gap 8.8 mEq/L (5.0-15.0); Bilirubin Total 0.3 mg/dL (0.2-1.0); Potassium 3.8 mEq/L (3.5-5.1); Protein, Total 7.1 g/dL (6.4-8.2)
--- NOTE | 2023-11-16 09:56 | EDPHYS ---
Physician Documentation [facility] Name: Tabatha Chambers Age: 58 yrs Sex: Female : 1965 Arrival Date: 11/16/2023 Time: 08:21 Bed 5 Private MD: ED Physician Erik Patterson HPI: 11/15 08:24 This 58 yrs old Female presents to ER via Unassigned with complaints of sp3 vomiting, diarrhea, abdominal pain. 08:24 58-year-old female with PMH anxiety, bipolar disease, chronic and recurrent vomiting sp3 and diarrhea presents to the ED for recurrent vomiting and chronic pain. Patient states she has no medication for vomiting. Patient is not currently vomiting or dry heaving. Abdominal cramping is sporadic and episodic. She denies any other symptoms including fever, blood in her emesis or stool, headache, URI symptoms, cough, known sick contacts, travel history, neck pain, chest pain, shortness of breath, PULLER THROUGH symptoms, symptoms, or any other signs or symptoms on ROS at this time.. Historical: - Allergies: 08:29 No Known Allergies; ko1 - PMHx: 08:29 Bipolar disorder; Hypertension; Schizophrenia; Seizures; UTI; Anxiety; Depressive ko1 disorder; - PSHx: 08:29 ankle SX; Cholecystectomy; tubes tied; ko1 - Immunization history:: Adult Immunizations unknown. - Infectious Disease History:: Denies. - Social history:: Smoking status: Patient denies any tobacco usage or history of. ROS: 08:25 Constitutional: Negative for fever, chills, and weight loss, Eyes: Negative for injury, sp3 pain, redness, and discharge, ENT: Negative for injury, pain, and discharge, Neck: Negative for injury, pain, and swelling, Cardiovascular: Negative for chest pain, palpitations, and edema, Respiratory: Negative for shortness of breath, cough, wheezing, and pleuritic chest pain, Back: Negative for injury and pain, MS/Extremity: Negative for injury and deformity, Skin: Negative for injury, rash, and discoloration, Neuro: Negative for headache, weakness, numbness, tingling, and seizure, Psych: Negative for depression, anxiety, suicide ideation, homicidal ideation, and hallucinations, Allergy/Immunology: Negative for hives, rash, and allergies, Endocrine: Negative for neck swelling, polydipsia, polyuria, polyphagia, and marked weight changes, Hematologic/Lymphatic: Negative for swollen nodes, abnormal bleeding, and unusual bruising, 08:25 All other systems are negative, Exam: 08:25 Constitutional: This is a well developed, well nourished patient who is awake, alert, sp3 and in no acute distress. Head/Face: Normocephalic, atraumatic. Eyes: Pupils equal round and reactive to light, extra-ocular motions intact. Lids and lashes normal. Conjunctiva and sclera are non-icteric and not injected. Cornea within normal limits. Periorbital areas with no swelling, redness, or edema. Neck: Trachea midline, no thyromegaly or masses palpated, and no cervical lymphadenopathy. Supple, full range of motion without nuchal rigidity, or vertebral point tenderness. No Meningismus. Chest/axilla: Normal chest wall appearance and motion. Nontender with no deformity. No lesions are appreciated. Cardiovascular: Regular rate and rhythm with a normal S1 and S2. No gallops, murmurs, or rubs. Normal PMI, no JVD. No pulse deficits. Respiratory: Lungs have equal breath sounds bilaterally, clear to auscultation and percussion. No rales, rhonchi or wheezes noted. No increased work of breathing, no retractions or nasal flaring. Back: No spinal tenderness. No costovertebral tenderness. Full range of motion. Skin: Warm, dry with normal turgor. Normal color with no rashes, no lesions, and no evidence of cellulitis. MS/ Extremity: Pulses equal, no cyanosis. Neurovascular intact. Full, normal range of motion. Neuro: Awake and alert, GCS 15, oriented to person, place, time, and situation. Cranial nerves II-XII grossly intact. Motor strength 5/5 in all extremities. Sensory grossly intact. Cerebellar exam normal. Normal gait. Psych: Awake, alert, with orientation to person, place and time. Behavior, mood, and affect are within normal limits. 08:25 Abdomen/GI: Mild pain to palpation diffusely without peritoneal signs, rebound or guarding. Patient is driving but not having any active emesis., Vital Signs: 08:26 BP 108 / 89; Pulse 62; Resp 28; Temp 98; Pulse Ox 100% ; ko1 09:23 BP 104 / 81; Pulse 66; Resp 16; Pulse Ox 99% ; dd2 09:57 BP 118 / 74; Pulse 68; Resp 16; Pulse Ox 100% ; ko1 MDM: 08:22 Patient medically screened. sp3 08:25 Data reviewed: vital signs, nurses notes, lab test result(s). ED course: 58-year-old sp3 female with recurrent and chronic abdominal pain, vomiting and gastritis. Will administer ondansetron IV, Protonix and check labs. CT scan 1 month ago was negative. I am not highly suspicious of acute abdomen, surgical pathology, sepsis or shock. Will hold on narcotic medication at this time due to her emesis and potential narcotic dependence. Probable discharge if workup is negative. Vital signs are normal.. 09:55 ED course: Labs within normal limits and patient is no longer having emesis. We will sp3 safely discharged home at this time.. 11/15 08:26 Order name: CBC with Diff; Complete Time: 09:54 sp3 11/15 08:26 Order name: CMP; Complete Time: 09:54 sp3 11/15 08:26 Order name: Lipase; Complete Time: 09:54 sp3 11/15 08:26 Order name: IV Saline Lock; Complete Time: 08:47 sp3 11/15 08:26 Order name: Labs collected and sent; Complete Time: 08:47 sp3 11/15 09:22 Order name: Labs - recollect needed: recollect green top; Complete Time: 09:32 bd Administered Medications: 08:46 Drug: Pantoprazole IVP 40 mg IVP once Route: IVP; Site: left antecubital; dd2 09:01 Follow up: Response: No adverse reaction dd2 08:47 Drug: NS 0.9% IV 1000 ml IV at 1 bolus Per protocol; 1000 mL bolus Route: IV; Rate: 1 dd2 bolus; Site: left antecubital; 09:02 Follow up: Response: No adverse reaction dd2 08:47 Drug: Ondansetron IVP 4 mg IVP once; over 2 minutes Route: IVP; Site: left antecubital; dd2 09:02 Follow up: Response: No adverse reaction dd2 Disposition Summary: 11/16/23 09:55 Discharge Ordered Notes: Location: Home sp3 Condition: Stable sp3 Diagnosis - Vomiting, abdominal pain sp3 Followup: sp3 - With: Private Physician - When: Upon discharge from the Emergency Department - Reason: Continuance of care Discharge Instructions: - Discharge Summary Sheet sp3 - Nausea and Vomiting, Adult sp3 Forms: - Medication Reconciliation Form sp3 - Antibiotic Education sp3 - Prescription Opioid Use sp3 - Patient Portal Instructions sp3 - Leadership Thank You Letter sp3 Prescriptions: - ondansetron 8 mg Oral Tablet,disintegrating - take 1 tablet ORAL route every 12 hours; 10 tablet; Refills: 0, Product sp3 Selection Permitted Signatures: Dispatcher [employer] EDMS Charlotte Arroyo Setul, MD MD sp3 Alma Olmedo RN RN ko1 ROMMEL KING RN RN dd2
--- NOTE | 2023-11-16 09:56 | ER ---
Nurse's Notes [facility] Name: Tabatha Chambers Age: 58 yrs Sex: Female : 1965 Arrival Date: 11/16/2023 Time: 08:21 Bed 5 Private MD: Diagnosis: Vomiting, abdominal pain Presentation: 11/15 08:26 Chief complaint: EMS states: abdominal pain since yesterday with diarrhea and ko1 constipation, now feels like spasms in her back and lower abdomen. She states she has had diarrhea 20 times since yesterday. Coronavirus screen: At this time, the client does not indicate any symptoms associated with coronavirus-19. Ebola Screen: No symptoms or risks identified at this time. Initial Sepsis Screen: Does the patient meet any 2 criteria? No. Patient's initial sepsis screen is negative. Does the patient have a suspected source of infection? No. Patient's initial sepsis screen is negative. Risk Assessment: Do you want to hurt yourself or someone else? Patient reports no desire to harm self or others. Onset of symptoms was November 15, 2023. 08:26 Method Of Arrival: EMS: [facility] ko1 08:26 Acuity: VERO 3 ko1 Triage Assessment: 08:29 General: Appears distressed, obese, unkempt, Behavior is anxious. Pain: Complains of ko1 pain in back and abdomen. GI: Reports lower abdominal pain, cramping, diarrhea. Historical: - Allergies: 08:29 No Known Allergies; ko1 - PMHx: 08:29 Bipolar disorder; Hypertension; Schizophrenia; Seizures; UTI; Anxiety; Depressive ko1 disorder; - PSHx: 08:29 ankle SX; Cholecystectomy; tubes tied; ko1 - Immunization history:: Adult Immunizations unknown. - Infectious Disease History:: Denies. - Social history:: Smoking status: Patient denies any tobacco usage or history of. Screenin:31 [facility] ED Fall Risk Assessment (Adult) History of falling in the last 3 months, ko1 including since admission No falls in past 3 months (0 pts) Confusion or Disorientation No (0 pts) Intoxicated or Sedated No (0 pts) Impaired Gait No (0 pts) Mobility Assist Device Used No (0 pt) Altered Elimination No (0 pt) Score/Fall Risk Level 0 - 2 = Low Risk Oriented to surroundings, Maintained a safe environment, Educated pt \T\ family on fall prevention, incl call for assistance when getting out of bed, Hourly rounding (assess needs \T\ fall precautionary measures) done. Abuse screen: Denies threats or abuse. Denies injuries from another. Nutritional screening: No deficits noted. Tuberculosis screening: No symptoms or risk factors identified. Assessment: 08:31 Reassessment: see triage note. ko1 10:10 GI: Bowel sounds present X 4 quads. Abd is soft and non tender. dd2 Vital Signs: 08:26 BP 108 / 89; Pulse 62; Resp 28; Temp 98; Pulse Ox 100% ; ko1 09:23 BP 104 / 81; Pulse 66; Resp 16; Pulse Ox 99% ; dd2 09:57 BP 118 / 74; Pulse 68; Resp 16; Pulse Ox 100% ; ko1 ED Course: 08:22 Patient arrived in ED. sp3 08:22 Erik Patterson MD is Attending Physician. sp3 08:22 ED physician to see patient. ko1 08:28 Triage completed. ko1 08:29 Arm band placed on right wrist. Patient placed in an exam room, on a stretcher, on ko1 cleaning matron, on pulse oximetry, Patient notified of wait time. 08:31 Patient has correct armband on for positive identification. Placed in gown. Bed in low ko1 position. Call light in reach. Side rails up X2. Provided Education on: labs. Pulse ox on. NIBP on. Door closed. Noise minimized. Lights dimmed. Warm blanket given. Pillow given. 08:31 No provider procedures requiring assistance completed. ko1 08:32 ROMMEL KING, RN is Primary Nurse. dd2 08:35 Patient requests pain medication. Patient requests rest room assistance. ED physician ko1 to see patient. 08:35 Assisted with bedpan. ko1 08:47 CBC with Diff Sent. dd2 08:47 CMP Sent. dd2 08:47 Lipase Sent. dd2 08:47 Initial lab(s) drawn, by me, sent to lab. Inserted saline lock: 18 gauge in left dd2 antecubital area, using aseptic technique. Blood collected. Flushed with 10 mL NS. 09:57 IV discontinued, intact, bleeding controlled, No redness/swelling at site. Pressure ko1 dressing applied. 09:58 ED physician to see patient. ko1 Administered Medications: 08:46 Drug: Pantoprazole IVP 40 mg IVP once Route: IVP; Site: left antecubital; dd2 09:01 Follow up: Response: No adverse reaction dd2 08:47 Drug: NS 0.9% IV 1000 ml IV at 1 bolus Per protocol; 1000 mL bolus Route: IV; Rate: 1 dd2 bolus; Site: left antecubital; 09:02 Follow up: Response: No adverse reaction dd2 08:47 Drug: Ondansetron IVP 4 mg IVP once; over 2 minutes Route: IVP; Site: left antecubital; dd2 09:02 Follow up: Response: No adverse reaction dd2 Medication: 08:35 VIS not applicable for this client. ko1 Outcome: 09:55 Discharge ordered by . sp3 10:04 Discharged to home via wheelchair, dd2 10:04 Condition: stable 10:04 Discharge instructions given to patient, Instructed on discharge instructions, follow up and referral plans. medication usage, Demonstrated understanding of instructions, follow-up care, medications, Prescriptions given X 1, 10:13 Patient left the ED. dd2 Signatures: Erik Patterson MD MD sp3 Alma Olmedo RN RN ko1 ROMMEL KING RN RN dd2 Corrections: (The following items were deleted from the chart) 08:43 08:26 Chief complaint: EMS states: abdominal pain since yesterday with diarrhea, now drea feels like spasms in her back and lower abdomen ko1
[2023-11-16 10:44] VITALS: TEMP 98; O2SAT 100
[2023-11-16 10:46] VITALS: BP 118/74
== END 2023-11-16 10:13 | disposition home or self-care (01) ==
LOC: ER 08:21
DX: R11.10 Vomiting, unspecified (principal); R10.9 Unspecified abdominal pain
CPT/HCPCS: 85025; 36415; 83690; 80053; 96375; 96374; 99284; J2470; J2405; J7030

== ENCOUNTER 2024-02-05 13:46 | Emergency (ER) | payer OTHER ==
--- NOTE | 2024-02-05 15:40 | RAD REPORT ---
EXAMINATION: Forearm Left CLINICAL INDICATION: Female, 58 years old. PAIN COMPARISON: No prior exam. FINDINGS: No acute fracture. No malalignment/dislocation. No significant focal degenerative change. Other: n/a IMPRESSION: No acute osseous abnormality.
[2024-02-05] MEDS ORDERED: HYDROCODONE/APAP 7.5/325 MG TAB ONE (15:45)
--- NOTE | 2024-02-05 15:49 | EDPHYS ---
Physician Documentation [facility] Name: Tabatha Chambers Age: 58 yrs Sex: Female : 1965 Arrival Date: 02/05/2024 Time: 13:46 Bed IW1 Private MD: ED Physician Christophe Mayer HPI: 02/04 14:09 This 58 yrs old Female presents to ER via Unassigned with complaints of Wrist kb Injury. 14:09 Pt is a 58 year female who presents for left wrist pain. States she was lifting a couch kb yesterday, started having pain so she dropped the couch and then fell onto left wrist making pain worse. Pain worse with movement. . Historical: - Allergies: 14:17 No Known Allergies; ss - PMHx: 14:17 Anxiety; Bipolar disorder; Schizophrenia; Hypertension; depressive disorder; Seizures; ss UTI; - PSHx: 14:17 Cholecystectomy; ankle SX; tubes tied; ss - Immunization history:: Adult Immunizations up to date. - Infectious Disease History:: Denies. - Social history:: Smoking status: Patient denies any tobacco usage or history of. ROS: 14:09 Constitutional: As per HPI kb Exam: 14:09 Constitutional: This is a well developed, well nourished patient who is awake, alert, kb and in no acute distress. Head/Face: Normocephalic, atraumatic. ENT: Moist Mucous membranes Cardiovascular: Regular rate Respiratory: Respirations even and unlabored. No increased work of breathing. Talking in full sentences Skin: Warm, dry with normal turgor. Normal color. Neuro: Awake and alert, GCS 15, oriented to person, place, time, and situation. 14:09 Musculoskeletal/extremity: Extremities: grossly normal except: noted in the left wrist: decreased ROM, pain, swelling, tenderness, ROM: limited active range of motion due to pain, Circulation is intact in all extremities. Sensation intact. Weight bearing: able to fully bear weight, Vital Signs: 14:15 Pulse 85; Resp 16; Temp 98.3; Pulse Ox 99% on R/A; Weight 113.85 kg; Height 5 ft. 4 in. ss ; Pain 10/10; 14:18 BP 158 / 98; ss 14:15 Body Mass Index 43.08 (113.85 kg, 162.56 cm) ss 14:15 Pain Scale: Adult ss MDM: 13:55 Medical Screening Exam initiated kb 14:11 Differential diagnosis: closed fracture, contusion, sprain. Data reviewed: vital signs, kb nurses notes. 15:49 Counseling: I had a detailed discussion with the patient and/or guardian regarding the kb historical points, exam findings, and any diagnostic results supporting the discharge/admit diagnosis, radiology results, the need for outpatient follow up, a orthopedic surgeon, to return to the emergency department if symptoms worsen or persist or if there are any questions or concerns that arise at home. 02/04 14:13 Order name: Forearm Left XRAY; Complete Time: 15:44 kb 02/04 14:12 Order name: Ice pack; Complete Time: 15:57 kb 02/04 15:44 Order name: Wrist Splint; Complete Time: 16:02 kb Administered Medications: 15:57 Drug: Hydrocodone-Acetaminophen PO (7.5 mg-325 mg) 1 tabs PO once Route: PO; ss 16:02 Follow up: Response: No adverse reaction; Medication Administered at Departure; RASS: ss Alert and Calm (0) Disposition Summary: 02/05/24 15:49 Discharge Ordered Notes: Location: Home kb Condition: Stable kb Diagnosis - Pain in left wrist kb Followup: kb - With: Emergency Department - When: As needed - Reason: Worsening of condition Followup: kb - With: Private Physician - When: 2 - 3 days - Reason: Recheck today's complaints, Continuance of care, Re-evaluation by your physician Discharge Instructions: - Discharge Summary Sheet kb - Musculoskeletal Pain kb Forms: - Medication Reconciliation Form kb - Antibiotic Education kb - Prescription Opioid Use kb - Patient Portal Instructions kb - Leadership Thank You Letter kb Prescriptions: - Diclofenac Sodium 75 mg Oral tablet, delayed release (enteric coated) - take 1 tablet ORAL route 2 times per day As needed; 30 tablet; Refills: 0, kb Product Selection Permitted Signatures: Dispatcher [employer] Margo Urrutia FNP-C FNP-Ckb Blanchard, Shelby, RN RN ss Corrections: (The following items were deleted from the chart) 14:12 14:12 Wrist Left 3 View+[id number] ordered. EDCA EDCA 14:14 14:09 Musculoskeletal/extremity: Extremities: grossly normal except: noted in the left kb wrist: decreased ROM, pain, ROM: limited active range of motion due to pain, Circulation is intact in all extremities. Sensation intact. Weight bearing: able to fully bear weight, kb
--- NOTE | 2024-02-05 15:49 | ER ---
Nurse's Notes [facility] Name: Tabatha Chambers Age: 58 yrs Sex: Female : 1965 Arrival Date: 02/05/2024 Time: 13:46 Bed IW1 Private MD: Diagnosis: Pain in left wrist Presentation: 02/04 14:15 Chief complaint: Patient states: L wrist pain since yesterday. Coronavirus screen: ss Client denies travel out of the [place] in the last 14 days. Ebola Screen: Patient denies exposure to infectious person. Patient denies travel to an Ebola-affected area in the 21 days before illness onset. Initial Sepsis Screen: Does the patient meet any 2 criteria? No. Patient's initial sepsis screen is negative. Does the patient have a suspected source of infection? No. Patient's initial sepsis screen is negative. Risk Assessment: Do you want to hurt yourself or someone else? Patient reports no desire to harm self or others. Onset of symptoms was February 04, 2024. 14:15 Method Of Arrival: Ambulatory ss 14:15 Acuity: VERO 4 ss Historical: - Allergies: 14:17 No Known Allergies; ss - PMHx: 14:17 Anxiety; Bipolar disorder; Schizophrenia; Hypertension; depressive disorder; Seizures; ss UTI; - PSHx: 14:17 Cholecystectomy; ankle SX; tubes tied; ss - Immunization history:: Adult Immunizations up to date. - Infectious Disease History:: Denies. - Social history:: Smoking status: Patient denies any tobacco usage or history of. Screenin:15 Abuse screen: Denies threats or abuse. Denies injuries from another. Nutritional ss screening: No deficits noted. Tuberculosis screening: Never had TB. Assessment: 14:15 General: Appears in no apparent distress. comfortable, Behavior is calm, cooperative. ss Pain: Complains of pain in left wrist Pain currently is 10 out of 10 on a pain scale. Neuro: Level of Consciousness is awake, alert, obeys commands, Oriented to person, place, time, situation. Cardiovascular: Pulses are palpable in right radial artery and left radial artery. Respiratory: Airway is patent Respiratory effort is even, unlabored. Derm: Skin is pink, warm \T\ dry. normal. 16:00 Reassessment: Patient appears in no apparent distress at this time. Patient and/or ss family updated on plan of care and expected duration. Pain level reassessed. Patient is alert, oriented x 3, equal unlabored respirations, skin warm/dry/pink. Vital Signs: 14:15 Pulse 85; Resp 16; Temp 98.3; Pulse Ox 99% on R/A; Weight 113.85 kg; Height 5 ft. 4 in. ss ; Pain 10/10; 14:18 BP 158 / 98; ss 14:15 Body Mass Index 43.08 (113.85 kg, 162.56 cm) ss 14:15 Pain Scale: Adult ss ED Course: 13:52 Patient arrived in ED. al6 13:55 [facility] Wayne [facility]C [facility] kb 13:55 Christophe Mayer MD is Attending Physician. kb 14:15 Patient has correct armband on for positive identification. ss 14:17 Triage completed. ss 14:17 Arm band placed on right wrist. ss 15:38 Forearm Left XRAY In Process Unspecified. EDMS 16:02 Johana Dickinson, RN is Primary Nurse. 16:02 No provider procedures requiring assistance completed. Patient did not have IV access ss during this emergency room visit. Velcro wrist splint applied to left wrist. Administered Medications: 15:57 Drug: Hydrocodone-Acetaminophen PO (7.5 mg-325 mg) 1 tabs PO once Route: PO; ss 16:02 Follow up: Response: No adverse reaction; Medication Administered at Departure; RASS: ss Alert and Calm (0) Medication: 14:15 VIS not applicable for this client. Outcome: 15:49 Discharge ordered by MD. kb 16:02 Discharged to home ambulatory, 16:02 Condition: good 16:02 Discharge instructions given to patient, Instructed on discharge instructions, follow up and referral plans. medication usage, Demonstrated understanding of instructions, follow-up care, medications, Prescriptions given X 1, 16:03 Patient left the ED. Signatures: Dispatcher [employer] EDMS Margo Wayne FNP-C FNP-Johana Dudley, RN RN Kishor Sherrie al6
[2024-02-05 16:20] VITALS: BP 158/98; TEMP 98.3; O2SAT 99
== END 2024-02-05 16:03 | disposition home or self-care (01) ==
LOC: ER 13:46
DX: M25.532 Pain in left wrist (principal)
CPT/HCPCS: 99283

== ENCOUNTER 2024-04-10 13:12 | Emergency (ER) | payer OTHER ==
--- NOTE | 2024-04-10 14:10 | RAD REPORT ---
EXAM: Chest Single View HISTORY: CHEST PAIN COMPARISON: 06/07/2023 FINDINGS: LUNGS/PLEURA: The lungs are clear. No pleural effusions or pneumothorax. No pulmonary edema. MEDIASTINUM: The mediastinal silhouette is within normal limits. CARDIAC: Mild cardiomegaly UPPER ABDOMEN: No significant abnormality. BONES: No acute abnormality. LINES/TUBES/OTHER: N/A IMPRESSION: No evidence of acute cardiopulmonary disease.
[2024-04-10 15:50] LABS: Absolute Basophils 0.1 K/uL (0-0.5); Absolute Eosinophils 0.2 K/uL (0-0.5); Absolute Lymphocytes (CBC) 1.8 K/uL (0.7-4.9); Absolute Monocytes 0.3 K/uL (0.1-1.3); Absolute Neutrophil 5.7 K/uL (1.8-8.0); Basophils % 1.1 % (0-1.3); Eosinophils % 1.9 % (0-4.4); Hematocrit 42.7 % (36.0-45.0); Hemoglobin 14.3 g/dL (12.0-15.0); Lymphocytes % 22.6 % (15.3-44.8); MCH 27.2 pg (27.0-35.0); MCHC 33.5 g/dL (32.0-36.0); MPV 8.1 fL (7.6-11.3); Monocytes % 3.2 % (3.3-12.3); Neutrophils % 71.2 % (41.7-73.7); Platelets 310 thou/uL (152-406); RBC Red Blood Cell Count 5.27 M/uL (3.86-4.86); Red Cell Distribution Width 16.1 % (12.1-15.2)
[2024-04-10 15:57] LABS: PT Prothrombin Time 12.2 SECONDS (9.4-12.5); Protime INR 1.16
[2024-04-10 16:09] LABS: Albumin 3.7 g/dL (3.4-5.0); Albumin/Globulin Ratio 0.8 (1.1-1.8); Anion Gap 7.7 mEq/L (5.0-15.0); Bilirubin Direct 0.2 mg/dL (0-0.2); Bilirubin Indirect, Calculated 0.2 mg/dL (0.2-0.8); Bilirubin Total 0.4 mg/dL (0.2-1.0); Globulin 4.7 g/dL (2.3-3.5); Magnesium 1.9 mg/dL (1.6-2.4); Potassium 4.7 mEq/L (3.5-5.1); Protein, Total 8.4 g/dL (6.4-8.2); Troponin High Sensitivity 4.1 pg/mL (<58.9)
[2024-04-10 16:37] LABS: Barbiturates NEGATIVE (NEGATIVE); Benzodiazepines POSITIVE (NEGATIVE); Cocaine NEGATIVE (NEGATIVE); METHAMPHETAM NEGATIVE (NEGATIVE); Methadone NEGATIVE (NEGATIVE); Opiates NEGATIVE (NEGATIVE); Phencyclidine NEGATIVE (NEGATIVE); THC Cannibis NEGATIVE (NEGATIVE)
--- NOTE | 2024-04-10 18:46 | ER ---
Nurse's Notes [facility] [place] Name: Tabatha Chambers Age: 58 yrs Sex: Female : 1965 Arrival Date: 04/10/2024 Time: 13:12 Bed DIS15 Private MD: Diagnosis: Chest pain, unspecified;Anxiety disorder, unspecified Presentation: 04/10 13:44 Chief complaint: EMS states: Toned out for andiety. Patient reports taking Xanax 1 mg hb and chest pain that subsided before arrival. Appears sedated in triage. Coronavirus screen: At this time, the client does not indicate any symptoms associated with coronavirus-19. Ebola Screen: No symptoms or risks identified at this time. Initial Sepsis Screen: Does the patient meet any 2 criteria? No. Patient's initial sepsis screen is negative. Does the patient have a suspected source of infection? No. Patient's initial sepsis screen is negative. Risk Assessment: Do you want to hurt yourself or someone else? Patient reports no desire to harm self or others. Onset of symptoms was April 10, 2024. 13:44 Method Of Arrival: EMS: [facility] hb 13:44 Acuity: VERO 3 hb 13:51 Chief complaint: EMS states: VSS. ll1 13:51 Method Of Arrival: EMS ll1 Triage Assessment: 18:45 General: Appears in no apparent distress. Behavior is calm, cooperative, appropriate ll1 for age. Pain: Denies pain. Historical: - Allergies: 13:47 No Known Drug Allergies; hb - PMHx: 13:47 Anxiety; Bipolar disorder; depressive disorder; Hypertension; Schizophrenia; Seizures; hb UTI; - PSHx: 13:47 ankle SX; Cholecystectomy; tubes tied; hb - Immunization history:: Adult Immunizations up to date. - Infectious Disease History:: Denies. - Social history:: Smoking status: Patient denies any tobacco usage or history of. Screenin:44 [facility] ED Fall Risk Assessment (Adult) History of falling in the last 3 months, ll1 including since admission No falls in past 3 months (0 pts) Confusion or Disorientation No (0 pts) Intoxicated or Sedated No (0 pts) Impaired Gait Yes (1 pt) Mobility Assist Device Used Yes (1 pt) Altered Elimination Yes (1 pt) Score/Fall Risk Level 3 or more points = High Risk Maintained a safe environment, Hourly rounding (assess needs \T\ fall precautionary measures) done. Abuse screen: Denies threats or abuse. Nutritional screening: No deficits noted. Tuberculosis screening: No symptoms or risk factors identified. Assessment: 18:44 Reassessment: No changes from previously documented assessment. Patient and/or family ll1 updated on plan of care and expected duration. Pain level reassessed. Patient states feeling better. Patient states symptoms have improved. Vital Signs: 13:44 BP 138 / 89; Pulse 81; Resp 16; Temp 97.8; Pulse Ox 100% on R/A; hb ED Course: 13:20 Patient arrived in ED. mr 13:24 Christophe Su PA is PHCP. cp 13:24 Miguel Pollard DO is Attending Physician. cp 13:47 Triage completed. hb 13:47 Arm band placed on. hb 14:03 XRAY Chest (1 view) In Process Unspecified. EDMS 18:40 IV discontinued, intact, bleeding controlled, No redness/swelling at site. Pressure ll1 dressing applied. 18:45 Patient has correct armband on for positive identification. Provided Education on: ll1 return to ED for worsening symptoms. 18:45 No provider procedures requiring assistance completed. ll1 Administered Medications: 18:44 Not Given (Patient Refused): aspirinchewable tablet 324 mg PO once; 81 mg tablets x 4 ll1 Medication: 18:46 VIS not applicable for this client. ll1 Outcome: 18:45 Discharge ordered by MD. cp 18:45 Discharged to home ambulatory, ll1 18:45 Condition: stable 18:45 Discharge instructions given to patient, Instructed on discharge instructions, follow up and referral plans. Demonstrated understanding of instructions, left without discharge instructions 18:46 Patient left the ED. ll1 Signatures: Dispatcher [employer] EDMS Araceil Montoya, Reg Reg mr Christophe Su PA PA cp Baxter, Heather, RN RN hb Lewis, Lynsay, RN RN ll1 Corrections: (The following items were deleted from the chart) 18:46 18:37 Patient placed in an exam room, on a stretcher, ll1 ll1
--- NOTE | 2024-04-10 18:46 | EDPHYS ---
Physician Documentation [facility] Name: Tabatha Chambers Age: 58 yrs Sex: Female : 1965 Arrival Date: 04/10/2024 Time: 13:12 Bed DIS15 Private MD: ED Physician Miguel Pollard HPI: 04/10 13:55 This 58 yrs old Female presents to ER via EMS with complaints of Anxiety. cp 13:55 The patient or guardian reports chest pain that is located primarily in the anterior cp chest wall. Onset: today, and improved just prior to arrival. The pain does not radiate. Associated signs and symptoms: Pertinent positives: c/o anxiety and reports taking prescribed Xananx earlier today. 13:55 The chest pain is described as a pressure. Duration: The patient or guardian reports a cp single episode, that is now resolved. 13:55 Patient reports calling EMS for increased anxiety. reports felt like she was crawling cp out of her skin. also c/o chest pain today. Historical: - Allergies: 13:47 No Known Drug Allergies; hb - PMHx: 13:47 Anxiety; Bipolar disorder; depressive disorder; Hypertension; Schizophrenia; Seizures; hb UTI; - PSHx: 13:47 ankle SX; Cholecystectomy; tubes tied; hb - Immunization history:: Adult Immunizations up to date. - Infectious Disease History:: Denies. - Social history:: Smoking status: Patient denies any tobacco usage or history of. ROS: 14:00 Constitutional: Negative for body aches, chills, fever, poor PO intake, cp 14:00 Eyes: Negative for injury, pain, redness, and discharge, cp 14:00 ENT: Negative for drainage from ear(s), ear pain, sore throat, difficulty swallowing, difficulty handling secretions, 14:00 Cardiovascular: Positive for chest pain, Negative for edema, palpitations, 14:00 Respiratory: Negative for cough, shortness of breath, wheezing, 14:00 Abdomen/GI: Negative for abdominal pain, vomiting, diarrhea, constipation, 14:00 Back: Negative for pain at rest, pain with movement, 14:00 Neuro: Negative for altered mental status, dizziness, headache, weakness, 14:00 All other systems are negative, Exam: 14:05 Constitutional: The patient appears in no acute distress, alert, awake, cp non-diaphoretic, non-toxic, well developed, well nourished, obese, appears drowsy 14:05 Head/Face: Normocephalic, atraumatic. cp 14:05 Eyes: Periorbital structures: appear normal, Conjunctiva: normal, no exudate, no injection, Sclera: no appreciated abnormality, Lids and lashes: appear normal, bilaterally, 14:05 ENT: External ear(s): are unremarkable, Nose: is normal, Mouth: Lips: moist, Oral mucosa: moist, Posterior pharynx: Airway: no evidence of obstruction, patent, 14:05 Neck: ROM/movement: is normal, is supple, without pain, no range of motions limitations, 14:05 Chest/axilla: Inspection: normal, 14:05 Cardiovascular: Rate: normal, Rhythm: regular, Edema: is not appreciated, JVD: is not appreciated, 14:05 Respiratory: the patient does not display signs of respiratory distress, Respirations: normal, no use of accessory muscles, no retractions, labored breathing, is not present, Breath sounds: are clear throughout, no decreased breath sounds, no stridor, no wheezing, 14:05 Abdomen/GI: Inspection: abdomen appears normal, Palpation: abdomen is soft and non-tender, in all quadrants, 14:05 Back: pain, is absent, ROM is normal, 14:05 Neuro: Orientation: to person, place \T\ time. Mentation: is normal, Motor: moves all fours, no focal deficits, Sensation: no obvious gross deficits, 14:05 Psych: Behavior/mood is cooperative, Affect is flat, Delusions/hallucinations are not present. Vital Signs: 13:44 BP 138 / 89; Pulse 81; Resp 16; Temp 97.8; Pulse Ox 100% on R/A; hb MDM: 13:41 Medical Screening Exam initiated cp 18:45 Data reviewed: vital signs, nurses notes, lab test result(s), EKG, radiologic studies, cp plain films, and as a result, I will discharge patient. 18:45 Differential diagnosis: abnormal EKG, acute myocardial infarction, acute pericarditis, cp anxiety, pleurisy, pneumonia, pneumothorax, stable angina, unstable angina. Consideration of Admission/Observation Escalation of care including admission/observation considered. I considered the following discharge prescriptions or medication management in the emergency department Medications were administered in the Emergency Department. See MAR. Independent interpretation of the following test(s) in the Emergency Department EKG: See my EKG interpretation above. Care significantly affected by the following chronic conditions: Hypertension. Counseling: I had a detailed discussion with the patient and/or guardian regarding the historical points, exam findings, and any diagnostic results supporting the discharge/admit diagnosis, lab results, radiology results, to return to the emergency department if symptoms worsen or persist or if there are any questions or concerns that arise at home. Response to treatment: the patient's symptoms have markedly improved after treatment, and as a result, I will discharge patient. Special discussion: Based on the patient's history, exam, and Dx evaluation, there is no indication for emergent intervention or inpatient Tx. It is understood by the patient/guardian that if the Sx's persist or worsen they need to return immediately for re-evaluation. 04/10 13:48 Order name: Basic Metabolic Panel; Complete Time: 17:29 cp 04/10 13:48 Order name: CBC with Diff; Complete Time: 17:29 cp 04/10 13:48 Order name: LFT's; Complete Time: 17:29 cp 04/10 13:48 Order name: Magnesium; Complete Time: 17:29 cp 04/10 13:48 Order name: PT-INR; Complete Time: 17:29 cp 04/10 13:48 Order name: Troponin HS; Complete Time: 17:29 cp 04/10 13:48 Order name: UDS; Complete Time: 17:29 cp 04/10 13:48 Order name: XRAY Chest (1 view); Complete Time: 17:29 cp 04/10 13:48 Order name: EKG - Nurse/Tech cp 04/10 13:48 Order name: IV Saline Lock; Complete Time: 18:28 cp 04/10 13:48 Order name: Labs collected and sent; Complete Time: 18:29 cp 04/10 13:48 Order name: O2 Per Protocol; Complete Time: 18:29 cp 04/10 13:48 Order name: O2 Sat Monitoring; Complete Time: 18:29 cp Administered Medications: 18:44 Not Given (Patient Refused): aspirinchewable tablet 324 mg PO once; 81 mg tablets x 4 ll1 Disposition: 04/11 14:15 I was immediately available on-site in the Emergency Department for consultation in the ms3 care of the patient. Disposition Summary: 04/10/24 18:45 Discharge Ordered Notes: Location: Home cp Problem: new cp Symptoms: have improved cp Condition: Stable cp Diagnosis - Chest pain, unspecified cp - Anxiety disorder, unspecified cp Followup: cp - With: Private Physician - When: 2 - 3 days - Reason: Recheck today's complaints Discharge Instructions: - Discharge Summary Sheet cp - Nonspecific Chest Pain, Adult cp - Aspirin and Your Heart cp - Managing Anxiety, Adult cp Forms: - Medication Reconciliation Form cp - Antibiotic Education cp - Prescription Opioid Use cp - Patient Portal Instructions cp - Leadership Thank You Letter cp Signatures: Dispatcher [employer] EDMS Christophe Su PA PA cp Lorin Barber RN RN Miguel Pollard DO DO ms3 Chelsi Patel RN ll1 Corrections: (The following items were deleted from the chart) 04/10 18:46 17:30 EKG - Nurse/Tech ordered. cp ll1
[2024-04-10 18:50] VITALS: BP 138/89; TEMP 97.8; O2SAT 100
== END 2024-04-10 18:46 | disposition home or self-care (01) ==
LOC: ER 13:12
DX: F41.9 Anxiety disorder, unspecified (principal)
CPT/HCPCS: 36415; 71045; 80048; 80076; 80307; 83735; 84484; 85025; 85610

== ENCOUNTER 2024-06-17 03:26 | Emergency (ER) | payer OTHER ==
[2024-06-17 05:00] LABS: Absolute Basophils 0.1 K/uL (0-0.5); Absolute Monocytes 0.2 K/uL (0.1-1.3); Absolute Neutrophil 16.4 K/uL (1.8-8.0); Basophils % 0.4 % (0-1.3); Eosinophils % 0.1 % (0-4.4); Hematocrit 44.3 % (36.0-45.0); Hemoglobin 14.6 g/dL (12.0-15.0); Lymphocytes % 5.8 % (15.3-44.8); MCHC 32.9 g/dL (32.0-36.0); MCV 82.2 fL (80-100); MPV 8.7 fL (7.6-11.3); Monocytes % 0.9 % (3.3-12.3); Neutrophils % 92.8 % (41.7-73.7); Platelets 326 thou/uL (152-406); Red Cell Distribution Width 15.9 % (12.1-15.2)
[2024-06-17 05:14] LABS: ALT/SGPT 16 U/L (13-56); Albumin 3.8 g/dL (3.4-5.0); Albumin/Globulin Ratio 0.9 (1.1-1.8); Alkaline Phosphatase 103 U/L (45-117); Anion Gap 10.2 mEq/L (5.0-15.0); BUN Blood Urea Nitrogen 19 mg/dL (7-18); Bicarbonate 26 mEq/L (21-32); Bilirubin Total 0.3 mg/dL (0.2-1.0); Globulin 4.2 g/dL (2.3-3.5); Glomerular Filtration Rate 45 ml/min (=/>90); Glucose Level 143 mg/dL (74-106); Lipase 13 U/L (13-75); Potassium 3.2 mEq/L (3.5-5.1); Sodium Level 140 mEq/L (136-145)
[2024-06-17 05:37] LABS: Band Neutrophils 13 % (0-1); Blood Morphology Comment NOT SEEN (NOT SEEN); Differential Total Cells Count 100; Lymphocytes 5 % (15-42); Monocytes 0 % (0-10); Platelet Estimate ADEQ; Segmented Neutrophils 82 % (40-80)
[2024-06-17 05:44] LABS: AST/SGOT < 10 U/L (15-37)
--- NOTE | 2024-06-17 08:38 | RAD REPORT ---
EXAMINATION: CT ABDOMEN AND PELVIS WITH CONTRAST CLINICAL INDICATION: Abdominal pain TECHNIQUE: CT abdomen and pelvis was performed, after the administration of 100 cc Isovue-300.. Sagit sobeida and coronal reconstructions were obtained. One or more of the following dose reduction techniques were used: Automated exposure control, adjustment of the mA and kV according to patient si ze, and iterative reconstruction. Unless otherwise specified, incidental findings do not require dedicated imaging follow-up. [id number]. Oral contrast was not given which limits evaluation of bowel and appendix. COMPARISON: .None FINDINGS: Liver, spleen, adrenals and kidneys appear unremarkable Atrophic pancreas Cholecystectomy No evidence of diverticulitis. Small umbilical hernia Mild prominence of the endometrium. : IMPRESSION: Mild prominence the endometrium can be a normal finding or indicate pathology such as hyperplasia, po lyp or neoplasm.
[2024-06-17 09:11] LABS: Sqamous Epithelial <5 /HPF (None Seen); Urine Bacteria None Seen /HPF (<20); Urine Bilirubin NEGATIVE (Negative); Urine Blood Negative (Negative); Urine Clarity Clear (Clear); Urine Color Light-Yellow (Yellow); Urine Culture Reflex Order NOT NEEDED; Urine Glucose NEGATIVE (Negative); Urine Ketones NEGATIVE (Negative); Urine Microscopic Reflex YN ORDER UMIC; Urine Nitrite NEGATIVE (Negative); Urine Protein NEGATIVE (Negative); Urine RBC <5 /HPF (None Seen); Urine Urobilinogen Normal (Normal); Urine WBC <5 /HPF (<5)
[2024-06-17 09:12] LABS: Specific Gravity > 1.030 (1.005-1.030)
--- NOTE | 2024-06-17 09:25 | EDPHYS ---
Physician Documentation [facility] Name: Tabatha Chambers Age: 58 yrs Sex: Female : 1965 Arrival Date: 06/17/2024 Time: 03:26 Bed 15 Private MD: ED Physician Rickie Alcocer HPI: 06/17 04:37 This 58 yrs old Female presents to ER via EMS with complaints of Abdominal Pain, sp3 Constipation. 04:37 58-year-old female with history of obesity currently on Ozempic, chronic constipation sp3 now presents to the ED with chief complaint abdominal pain and constipation. She is now starting to have bowel movements but states that her abdominal pain is severe. She denies any fever, headache, chest pain, shortness of breath, vomiting, diarrhea, or any other signs or symptoms on ROS at this time.. Historical: - Allergies: 03:32 No Known Allergies; cp4 - Immunization history:: Adult Immunizations up to date. - Infectious Disease History:: Denies. - Social history:: Smoking status: Patient denies any tobacco usage or history of. ROS: 04:37 Constitutional: Negative for fever, chills, and weight loss, Eyes: Negative for injury, sp3 pain, redness, and discharge, Neck: Negative for injury, pain, and swelling, Cardiovascular: Negative for chest pain, palpitations, and edema, Respiratory: Negative for shortness of breath, cough, wheezing, and pleuritic chest pain, Back: Negative for injury and pain, MS/Extremity: Negative for injury and deformity, Skin: Negative for injury, rash, and discoloration, Neuro: Negative for headache, weakness, numbness, tingling, and seizure, Psych: Negative for depression, anxiety, suicide ideation, homicidal ideation, and hallucinations, Allergy/Immunology: Negative for hives, rash, and allergies, Endocrine: Negative for neck swelling, polydipsia, polyuria, polyphagia, and marked weight changes, 04:37 All other systems are negative, Exam: 04:37 Constitutional: This is a well developed, well nourished patient who is awake, alert, sp3 and in no acute distress. Head/Face: Normocephalic, atraumatic. Eyes: Pupils equal round and reactive to light, extra-ocular motions intact. Lids and lashes normal. Conjunctiva and sclera are non-icteric and not injected. Cornea within normal limits. Periorbital areas with no swelling, redness, or edema. Neck: Trachea midline, no thyromegaly or masses palpated, and no cervical lymphadenopathy. Supple, full range of motion without nuchal rigidity, or vertebral point tenderness. No Meningismus. Chest/axilla: Normal chest wall appearance and motion. Nontender with no deformity. No lesions are appreciated. Cardiovascular: Regular rate and rhythm with a normal S1 and S2. No gallops, murmurs, or rubs. Normal PMI, no JVD. No pulse deficits. Respiratory: Lungs have equal breath sounds bilaterally, clear to auscultation and percussion. No rales, rhonchi or wheezes noted. No increased work of breathing, no retractions or nasal flaring. Back: No spinal tenderness. No costovertebral tenderness. Full range of motion. Skin: Warm, dry with normal turgor. Normal color with no rashes, no lesions, and no evidence of cellulitis. MS/ Extremity: Pulses equal, no cyanosis. Neurovascular intact. Full, normal range of motion. Neuro: Awake and alert, GCS 15, oriented to person, place, time, and situation. Cranial nerves II-XII grossly intact. Motor strength 5/5 in all extremities. Sensory grossly intact. Cerebellar exam normal. Normal gait. 04:37 Abdomen/GI: Diffuse abdominal pain to palpation without peritoneal signs, rebound or guarding. Vital signs are normal., Vital Signs: 03:32 BP 170 / 94; Pulse 68; Resp 18; Temp 98.1; Pulse Ox 94% ; Weight 102.06 kg; Height 5 cp4 ft. 4 in. ; Pain 10/10; 04:45 BP 126 / 81; Pulse 77; Resp 18; Pulse Ox 100% ; cp4 05:53 BP 128 / 83; Pulse 74; Resp 18; Pulse Ox 99% ; cp4 08:05 BP 130 / 89; Pulse 89; Resp 16; Pulse Ox 100% ; bp 03:32 Body Mass Index 38.62 (102.06 kg, 162.56 cm) cp4 03:32 Pain Scale: Adult cp4 MDM: 04:18 Medical Screening Exam initiated sp3 04:38 Data reviewed: vital signs, nurses notes, lab test result(s), radiologic studies. ED sp3 course: 58-year-old female with constipation and abdominal pain. Differential diagnosis constipation, other intra-abdominal pathology, bowel obstruction, ileus, among others. Workup will include CT scan of the abdomen pelvis general labs and supportive care. Will hold on narcotics in case constipation. Disposition pending workup and patient course. Patient is actively having bowel movements in ED after being here.. 11:10 Differential diagnosis: Constipation, ileus, bowel obstruction. Consideration of rt Admission/Observation Escalation of care including admission/observation considered. Discussed with patient findings on CT scan, specifically related to thickened endometrial stripe, structured patient to follow-up with gynecology as an outpatient for further evaluation of this. I also informed patient of leukocytosis with bandemia. At this time, she is afebrile, I see no infectious source currently. She has no other symptoms to suggest an infectious source and she has stable vital signs. This may be all due to demargination, however, informed the patient that she should return if she develops any worsening symptoms or new concerning symptoms.. I considered the following discharge prescriptions or medication management in the emergency department Medications were administered in the Emergency Department. See MAR. Independent interpretation of the following test(s) in the Emergency Department CT Scan: My interpretation is No bowel obstruction seen on my interpretation CT scan images. Care significantly affected by the following chronic conditions: Constipation. Counseling: I had a detailed discussion with the patient and/or guardian regarding the historical points, exam findings, and any diagnostic results supporting the discharge/admit diagnosis, lab results, radiology results, the need for outpatient follow up, to return to the emergency department if symptoms worsen or persist or if there are any questions or concerns that arise at home. Response to treatment: the patient's symptoms have markedly improved after treatment. 06/17 04:26 Order name: CBC with Diff; Complete Time: 08:40 sp3 06/17 04:26 Order name: CMP; Complete Time: 08:40 sp3 06/17 04:26 Order name: Lipase; Complete Time: 08:40 sp3 06/17 04:26 Order name: Urinalysis w/ reflexes; Complete Time: 09:12 sp3 06/17 05:13 Order name: Manual Differential; Complete Time: 08:40 EDMS 06/17 04:26 Order name: CT Abd/Pelvis - IV Contrast Only; Complete Time: 08:40 sp3 06/17 04:26 Order name: IV Saline Lock; Complete Time: 04:44 sp3 06/17 04:26 Order name: Labs collected and sent; Complete Time: :44 sp3 Administered Medications: 09:45 Drug: Dicyclomine IM 20 mg IM once Route: IM; Site: right deltoid; bp 09:53 Follow up: Response: No adverse reaction bp Disposition Summary: 06/17/24 09:25 Discharge Ordered Notes: Location: Home rt Problem: new rt Symptoms: have improved rt Condition: Stable rt Diagnosis - Leukocytosis rt - Constipation rt Followup: rt - With: Private Physician - When: 2 - 3 days - Reason: Followup: rt - With: Emergency Department - When: As needed - Reason: Worsening of condition Discharge Instructions: - Discharge Summary Sheet rt - Constipation, Adult rt Forms: - Medication Reconciliation Form rt - Antibiotic Education rt - Prescription Opioid Use rt - Patient Portal Instructions rt - Leadership Thank You Letter rt Prescriptions: - Lactulose 10 gram/15 mL Oral Solution - take 30 milliliters ORAL route once daily; 300 milliliter; Refills: 0, Product rt Selection Permitted Signatures: Dispatcher [employer] Anatoly Casanova, RN RN bp Erik Patterson MD MD sp3 Rickie Alcocer MD MD rt Alyssa Green cp4 Corrections: (The following items were deleted from the chart) 09:25 Abdominal pain, unspecified rt rt
--- NOTE | 2024-06-17 09:25 | ER ---
Nurse's Notes [facility] Name: Tabatha Chambers Age: 58 yrs Sex: Female : 1965 Arrival Date: 06/17/2024 Time: 03:26 Bed 15 Private MD: Diagnosis: Leukocytosis;Constipation Presentation: 06/17 03:31 Chief complaint: EMS states: constipation with vagaling. Coronavirus screen: Client cp4 denies travel out of the [place] in the last 14 days. At this time, the client does not indicate any symptoms associated with coronavirus-19. Ebola Screen: Patient negative for fever greater than or equal to 101.5 degrees Fahrenheit, and additional compatible Ebola Virus Disease symptoms Patient denies exposure to infectious person. Patient denies travel to an Ebola-affected area in the 21 days before illness onset. No symptoms or risks identified at this time. Initial Sepsis Screen:. Risk Assessment: Do you want to hurt yourself or someone else? Patient reports no desire to harm self or others. Onset of symptoms was June 16, 2024. 03:31 Method Of Arrival: EMS: [facility] cp4 03:31 Acuity: VERO 3 cp4 03:31 Acuity: VERO 3 cp4 06:20 Initial Sepsis Screen: Does the patient meet any 2 criteria? No. Patient's initial cp4 sepsis screen is negative. Does the patient have a suspected source of infection? No. Patient's initial sepsis screen is negative. Triage Assessment: 03:32 General: Appears in no apparent distress. uncomfortable, Behavior is calm, cooperative, cp4 appropriate for age. Pain: Complains of pain in pelvis Pain does not radiate. Pain currently is 10 out of 10 on a pain scale. EENT: No signs and/or symptoms were reported regarding the EENT system. Neuro: Level of Consciousness is awake, alert, obeys commands, Oriented to person, place, time, situation. Cardiovascular: Patient's skin is warm and dry. Respiratory: Airway is patent Respiratory effort is even, unlabored. GI: Reports constipation. : No signs and/or symptoms were reported regarding the genitourinary system. Derm: No signs and/or symptoms reported regarding the dermatologic system. Musculoskeletal: No signs and/or symptoms reported regarding the musculoskeletal system. Historical: - Allergies: 03:32 No Known Allergies; cp4 - Immunization history:: Adult Immunizations up to date. - Infectious Disease History:: Denies. - Social history:: Smoking status: Patient denies any tobacco usage or history of. Screenin:35 [facility] ED Fall Risk Assessment (Adult) History of falling in the last 3 months, cp4 including since admission No falls in past 3 months (0 pts) Confusion or Disorientation No (0 pts) Intoxicated or Sedated No (0 pts) Impaired Gait No (0 pts) Mobility Assist Device Used No (0 pt) Altered Elimination No (0 pt) Score/Fall Risk Level 0 - 2 = Low Risk Oriented to surroundings, Maintained a safe environment, Assessed \T\ reinforced patient's understanding of fall precautions, Hourly rounding (assess needs \T\ fall precautionary measures) done. Abuse screen: Denies threats or abuse. Denies injuries from another. Nutritional screening: No deficits noted. Tuberculosis screening: No symptoms or risk factors identified. Assessment: 03:35 Reassessment: No changes from previously documented assessment. cp4 05:54 Reassessment: Patient appears in no apparent distress at this time. Patient and/or cp4 family updated on plan of care and expected duration. Pain level reassessed. Patient is alert, oriented x 3, equal unlabored respirations, skin warm/dry/pink. 08:05 Reassessment: Patient appears in no apparent distress at this time. Patient is alert, bp oriented x 3, equal unlabored respirations, skin warm/dry/pink. Vital Signs: 03:32 BP 170 / 94; Pulse 68; Resp 18; Temp 98.1; Pulse Ox 94% ; Weight 102.06 kg; Height 5 cp4 ft. 4 in. ; Pain 10/10; 04:45 BP 126 / 81; Pulse 77; Resp 18; Pulse Ox 100% ; cp4 05:53 BP 128 / 83; Pulse 74; Resp 18; Pulse Ox 99% ; cp4 08:05 BP 130 / 89; Pulse 89; Resp 16; Pulse Ox 100% ; bp 03:32 Body Mass Index 38.62 (102.06 kg, 162.56 cm) cp4 03:32 Pain Scale: Adult cp4 ED Course: 03:27 Patient arrived in ED. [id number] 03:31 Alyssa Green is Primary Nurse. cp4 03:32 Triage completed. cp4 03:32 Arm band placed on right wrist. Patient placed in an exam room, on a stretcher. cp4 03:35 Bed in low position. Call light in reach. Side rails up X2. cp4 04:13 Erik Patterson MD is Attending Physician. sp3 05:53 No provider procedures requiring assistance completed. Initial lab(s) drawn, by dc, cp4 sent to lab. Inserted saline lock: 22 gauge in right antecubital area, using aseptic technique. Blood collected. Flushed with 10 mL NS. 06:29 CT Abd/Pelvis - IV Contrast Only In Process Unspecified. EDMS 06:57 Attending Physician role handed off by Erik Patterson MD rt 06:57 Rickie Alcocer MD is Attending Physician. rt 09:53 IV discontinued, intact, bleeding controlled, No redness/swelling at site. Pressure bp dressing applied. Administered Medications: 09:45 Drug: Dicyclomine IM 20 mg IM once Route: IM; Site: right deltoid; bp 09:53 Follow up: Response: No adverse reaction bp Medication: 03:35 VIS not applicable for this client. cp4 Outcome: 09:25 Discharge ordered by MD. rt 09:53 Discharged to home ambulatory, bp 09:53 Condition: stable 09:53 Discharge instructions given to patient, Instructed on discharge instructions, follow up and referral plans. medication usage, Demonstrated understanding of instructions, follow-up care, medications, Prescriptions given X 1, 09:54 Patient left the ED. bp Signatures: Dispatcher [employer] [facility] Anatoly Mari, MARION RN bp Erik Patterson MD MD sp3 Stacy [id number] Rickie Alcocer MD MD rt Alyssa Green cp4
[2024-06-17] MEDS ORDERED: DICYCLOMINE HCL 20 MG/2 ML AMP IM ONE (09:46)
[2024-06-17 09:58] VITALS: TEMP 98.1
[2024-06-17 10:04] VITALS: BP 130/89; O2SAT 100
== END 2024-06-17 09:54 | disposition home or self-care (01) ==
LOC: ER 03:26 → EDBD 03:26 → MERGE 03:26 → ER 09:54
DX: D72.829 Elevated white blood cell count, unspecified (principal); K59.00 Constipation, unspecified
CPT/HCPCS: 85025; 81001; 36415; 83690; 80053; 74177; 96372; 99284; Q9967; J0500